=== PATIENT | male | born 1945 | race Caucasian/White ===

== ENCOUNTER 2018-05-26 08:54 | Day surgery (SDC) | payer MEDICARE, OTHER ==
[2018-05-25 09:42] VITALS: BMI 28.3
[~2018-05-26 08:54] MED LIST: LACTATED RINGERS 1,000 ML IV SCH
[2018-05-26 10:19] VITALS: TEMP 97.4
[2018-05-26] MEDS ORDERED: LIDOCAINE 1% 20 ML VIAL (10MG/ML) FOR IV START INTRADERMA ONE (10:19)
[2018-05-26 10:22] LABS: Glucose,Whole Blood 104 mg/dL (75-99)
[2018-05-26] MEDS ORDERED: PROPOFOL 10 MG/ML 20 ML VIAL IV ONE (10:25)
[2018-05-26] MEDS ORDERED: LIDOCAINE 1% INJ 10MG/ML (20 ML MDV) ONE (10:25)
--- NOTE | 2018-05-26 10:37 | P.PCN ---
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 He is scheduled for a follow-up upper endoscopy today. He complains of occasional dysphagia and occasional heartburn.. PROCEDURE PERFORMED: Esophagogastroduodenoscopy. PREOPERATIVE DIAGNOSIS: Follow-up esophageal adenocarcinoma diagnosed in April 2015 status post esophagectomy. IV sedation per anesthesia. PROCEDURE: After informed consent was obtained, the patient was brought into the endoscopy unit. IV sedation was administered by Anesthesia under continuous monitoring. Initially the Olympus GIF-140 video endoscope was inserted into the mouth. Esophagus intubated without any difficulty. The esophagogastric anastomosis was located at 25 cm from the incisors. It appeared patent. The scope was gradually advanced into the stomach and duodenum and carefully examined. The bulb and the second part of the duodenum appeared normal. The scope at this time was withdrawn to the stomach, adequately insufflated with air , and upon careful examination, mucosa of the antrum, body, appeared normal. was small amount of retained food in the stomach. The scope was then withdrawn into the esophagus. The GE anastomosiss located at 25 cm from the incisors. it appeared patent with no evidence of esophagitis. The esophagus appeared normal. There were no erosions or ulcerations seen and the patient tolerated the procedure well. IMPRESSION: 1. Normal esophagogastric anastomosis at 25 cm from the incisors with no evidence of recurrence of malignancy 2. Small amount of retained food in the stomach suggestive of gastroparesis. RECOMMENDATIONS: The findings of this examination were discussed with the patient as well as his family. He was advised to continue with Prilosec and small frequent meals. He can have a repeat upper endoscopy in 1 year.
[2018-05-26 10:58] VITALS: BP 126/74; PULSE 58; RESP 18
== END 2018-05-26 11:25 | disposition home or self-care (01) ==
LOC: ORWHC2ENDO 08:54
PROVIDERS: ATTEND Internal Medicine Gastroenterology
DX: K21.9 Gastro-esophageal reflux disease without esophagitis (principal); Z85.01 Personal history of malignant neoplasm of esophagus; Z98.0 Intestinal bypass and anastomosis status; Z90.49 Acquired absence of other specified parts of digestive tract; I10 Essential (primary) hypertension; E78.5 Hyperlipidemia, unspecified; J44.9 Chronic obstructive pulmonary disease, unspecified; H91.90 Unspecified hearing loss, unspecified ear; Z79.899 Other long term (current) drug therapy; Z91.040 Latex allergy status
CPT/HCPCS: 43235; J2001; J2704

== ENCOUNTER 2018-09-15 07:18 | Day surgery (SDC) | payer MEDICARE, OTHER ==
[2018-09-14 08:31] VITALS: BMI 30.2
[2018-09-15 07:55] VITALS: RESP 16; TEMP 97
[2018-09-15 08:01] LABS: Glucose,Whole Blood 96 mg/dL (75-99)
[2018-09-15] MEDS ORDERED: PROPOFOL 10 MG/ML 20 ML VIAL IV ONE (08:03)
--- NOTE | 2018-09-15 08:35 | P.PCN ---
Date of Procedure: 09/15/18 Procedure(s) Performed: BRIEF HISTORY: Patient is a 73-year-old pleasant white male scheduled for an elective colonoscopy as a part of variation of prior history of colon polyps. Last colonoscopy was 5 years ago. PROCEDURE PERFORMED: Colonoscopy. PREOPERATIVE DIAGNOSIS: History of colon polyps. IV sedation per Anesthesia. PROCEDURE: After informed consent was obtained, the patient, was brought into the endoscopy unit. IV sedation was administered by Anesthesia under continuous monitoring. Digital rectal examination was normal. Initially the Olympus CF- 160 flexible video colonoscope was then inserted in the rectum, gradually advanced into the cecum without any difficulty. Careful examination was performed as the scope was gradually being withdrawn. Ileocecal valve and the appendiceal orifice were visualized and appeared normal. Prep was fair. Mucosa of the cecum, ascending colon, transverse colon, descending colon, sigmoid colon , and rectum appeared normal. Scattered sigmoid diverticula cyst seen. Retroflexion was performed in the rectum and grade 2 internal were seen. The patient tolerated the procedure well. IMPRESSION: Normal-appearing colon from rectum to cecum with no evidence of colorectal neoplasia. Scattered sigmoid diverticulosis Grade 2 internal hemorrhoids RECOMMENDATIONS: Findings of this examination were discussed with the patient as well as his family. He was advised to have a repeat surveillance colonoscopy in 5 years from now because of the prior history of colon polyps..
[2018-09-15 09:08] VITALS: BP 134/76; PULSE 60
== END 2018-09-15 09:32 | disposition home or self-care (01) ==
LOC: ORWHC2ENDO 07:18
PROVIDERS: ATTEND Internal Medicine Gastroenterology
DX: Z86.010 Personal history of colon polyps (principal); K57.30 Diverticulosis of large intestine without perforation or abscess without bleeding; K64.1 Second degree hemorrhoids; Z91.040 Latex allergy status; I10 Essential (primary) hypertension; E11.9 Type 2 diabetes mellitus without complications; Z91.030 Bee allergy status; Z79.84 Long term (current) use of oral hypoglycemic drugs; Z79.899 Other long term (current) drug therapy
CPT/HCPCS: 45378; J2704

== ENCOUNTER 2019-08-17 18:20 | Observation (INO) | payer MEDICARE, OTHER ==
[2019-08-17 20:35] LABS: Glucose,Whole Blood 101 mg/dL (75-99)
[2019-08-17] MEDS ORDERED: NALOXONE 0.4 MG/ML 1 ML VIAL IV PRN (21:44)
[2019-08-17] MEDS ORDERED: ALPRAZolam 0.25 MG TAB PO PRN (21:47)
[2019-08-17] MEDS ORDERED: ACETAMINOPHEN TAB 500 MG TAB PO PRN (21:47)
[2019-08-17] MEDS ORDERED: NON FORMULARY DRUG (Omeprazole [Omeprazole] 20 MG) PO SCH (22:00)
[2019-08-17] MEDS: SODIUM CHLORIDE 0.9% 1,000 ML IV SCH (22:35)
[2019-08-17 22:37] LABS: Appearance,Urine Clear (Clear); Bilirubin,Urine Negative (Negative); Blood,Urine Negative (Negative); Color,Urine Yellow; Glucose,Urine (UA) Negative (Negative); Ketones,Urine Negative (Negative); Leukocyte Esterase,Urine Negative (Negative); Nitrite,Urine Negative (Negative); Protein,Urine Negative (Negative); Specific Gravity,Urine 1.019 (1.001-1.035); Urobilinogen,Urine <2.0 mg/dL (<2.0)
[2019-08-17 22:59] LABS: Basophils # (A) 0.1 k/uL (0-0.2); Basophils % (A) 1 %; Eosinophils # (A) 0.1 k/uL (0-0.7); Eosinophils % (A) 2 %; HCT 40.9 % (39.0-53.0); HGB 13.7 gm/dL (13.0-17.5); Lymphocytes # (A) 1.1 k/uL (1.0-4.8); Lymphocytes % (A) 15 %; MCH 32.5 pg (25.0-35.0); MCHC 33.4 g/dL (31.0-37.0); MCV 97.3 fL (80.0-100.0); Monocytes # (A) 0.6 k/uL (0-1.0); Monocytes % (A) 8 %; Neutrophils # (A) 5.4 k/uL (1.3-7.7); Neutrophils % (A) 74 %; Platelet Count 175 k/uL (150-450); RBC 4.21 m/uL (4.30-5.90); RDW 13.1 % (11.5-15.5); WBC 7.3 k/uL (3.8-10.6)
[2019-08-17 23:09] LABS: Albumin 3.6 g/dL (3.5-5.0); Magnesium 1.9 mg/dL (1.6-2.3); Phosphorus 2.8 mg/dL (2.5-4.5); Potassium 3.7 mmol/L (3.5-5.1); Total Bilirubin 0.6 mg/dL (0.2-1.3); Total Protein 6.4 g/dL (6.3-8.2)
[2019-08-18 05:36] LABS: Basophils % (A) 0 %; Eosinophils # (A) 0.2 k/uL (0-0.7); Eosinophils % (A) 3 %; HCT 37.4 % (39.0-53.0); HGB 12.6 gm/dL (13.0-17.5); Lymphocytes # (A) 0.7 k/uL (1.0-4.8); Lymphocytes % (A) 12 %; MCH 32.8 pg (25.0-35.0); MCHC 33.8 g/dL (31.0-37.0); Mean Platelet Volume 7.1; Monocytes # (A) 0.4 k/uL (0-1.0); Monocytes % (A) 8 %; Neutrophils % (A) 75 %; Platelet Count 140 k/uL (150-450); RBC 3.86 m/uL (4.30-5.90); WBC 5.3 k/uL (3.8-10.6)
[2019-08-18 05:48] LABS: Calcium 8.7 mg/dL (8.4-10.2); Potassium 3.4 mmol/L (3.5-5.1)
[2019-08-18 07:16] LABS: Glucose,Whole Blood 115 mg/dL (75-99)
--- NOTE | 2019-08-18 08:36 | HP ---
HISTORY AND PHYSICAL CHIEF COMPLAINT: Dizziness and presyncope. HISTORY OF PRESENT ILLNESS: This is a 74-year-old gentleman with a past history of COPD, diabetes, GERD, hearing defect, hypertension, hyperlipidemia, being followed by Dr. Blackwood in the outpatient setting. Also seeing Dr. Burnette. Today the patient was playing bingo. Patient reported that patient is not able to see. Patient has recently changed the prescription of the glasses according to the family, but subsequently patient woke with patient stood up was unsteady and family helped him, but he became cold, clammy and slightly unresponsive and the patient subsequently was taken to [facility] and [facility] physician discussed the case at length with me over the phone and the patient was transferred to [facility] for direct admission at this time. The patient also has some slight dizziness. The initial workup was negative except the EKG showed some sinus bradycardia. The blood sugar is also found to be low in [facility] around 60 and there is no history of fever, chills, or rigors. No history of any headache. No history of seizures at this time. PAST MEDICAL: COPD, diabetes mellitus, GERD, hearing defect, hypertension, hyperlipidemia. HOME MEDICATIONS: 1. Requip 5 mg p.o. q.h.s. 2. Norvasc 10 mg q.a.m. 3. Actos 50 mg q.a.m. 4. Omeprazole 20 mg supper. 5. Cozaar 50 mg q.a.m. 6. Hydrochlorothiazide 25 mg q.a.m. 7. Iron 320 mg p.o. b.i.d. 8. Vitamin D3 four hundred units p.o. with supper. 9. Lipitor 20 mg with supper. ALLERGIES: BEE VENOM and LATEX. FAMILY HISTORY: History of cancer. SOCIAL HISTORY: No history of smoking, no history of alcohol. REVIEW OF SYSTEMS: ENT: Diminished vision. Diminished hearing. CARDIOVASCULAR SYSTEM: As mentioned earlier. GI: No nausea. : No dysuria. NERVOUS SYSTEM: As mentioned earlier. ALLERGY/IMMUNOLOGY: No asthma or hayfever. MUSCULOSKELETAL: As mentioned earlier. HEMATOLOGY/ONCOLOGY: No history of anemia. ENDOCRINE: Diabetes. CONSTITUTIONAL: As mentioned earlier. DERMATOLOGY: Negative. RHEUMATOLOGY: Negative. PSYCHIATRY: As mentioned earlier. PHYSICAL EXAMINATION: Patient is alert and oriented x3. Pulse is 80, blood pressure 128/90, respiration 20, temperature is normal. HEENT: Conjunctivae normal, oral mucosa moist. NECK: No jugular venous distention. No lymph node enlargement. CARDIOVASCULAR SYSTEM: S1, S2. RESPIRATION: Breath sounds diminished at the bases, no rhonchi, no crackles. ABDOMEN: Soft, nontender. No mass palpable. LEGS: No edema, no swelling. NERVOUS SYSTEM: Higher functions as mentioned earlier. Moves all 4 limbs. Otherwise, no focal motor or sensory deficit. Minimal weakness noted. LYMPHATICS: No lymph nodes palpable in the neck, axillae or groin. SKIN: No ulcers, rash or bleeding. JOINTS: No active deformity, arthropathy. LABS: Glucose 101. Other labs are noted. ASSESSMENT: 1. Presyncope and dizziness for evaluation, rule out cardiac arrhythmia. 2. Possible acute transient ischemic attack, rule out acute stroke. 3. Hypoglycemia. 4. Bradycardia. 5. Chronic obstructive pulmonary disease. 6. Diabetes mellitus type 2. 7. Gastroesophageal reflux disease. 8. Hearing defect and deafness. 9. Hyperlipidemia. 10.Hypertension. 11.History of prostate cancer surgery. 12.History of throat cancer surgery. 13.History of degenerative joint disease. 14.History of cataracts. 15.FULL CODE: RECOMMENDATION: In this 74-year-old gentleman who presented with multiple complex medical issues, will monitor the patient closely. Continue with the current management and recommend resume the home medications. I would recommend Cardiology and Neurology consultation. Full neurovascular workup including 2D echo and carotid Doppler, continue telemetry. Otherwise, I would also recommend Accu-Cheks a.c. and at bedtime and pursue the scale also. Overall prognosis guarded because of multiple complex medical issues, as detailed above. Will continue to monitor. Repeat labs are noted for the morning and discussed at length with the patient and the patient's family at bedside and a copy of this will be forwarded to Dr. Blackwood who is the primary physician. MMODL / IJN: [id number] /
[2019-08-18] MEDS: INSULIN ASPART (NovoLOG) 100 UNIT/ML VIAL SQ SCH ×4 (08:45→21:47)
[2019-08-18] MEDS: HYDROCHLOROTHIAZIDE 25 MG TAB PO SCH (08:53)
[2019-08-18] MEDS: FERROUS SULFATE 325 MG TAB PO SCH ×2 (08:53→21:47)
[2019-08-18] MEDS: PANTOPRAZOLE 40 MG TABLET PO SCH (08:53)
[2019-08-18] MEDS: HEPARIN SODIUM,PORCINE 5,000 UNIT/ML 1 ML VIAL SQ SCH ×2 (08:53→21:47)
[2019-08-18] MEDS: LOSARTAN 50 MG TAB PO SCH (08:53)
[2019-08-18] MEDS: PIOGLITAZONE 15 MG TAB PO SCH (08:54)
[2019-08-18] MEDS ORDERED: amLODIPine 10 MG TAB PO SCH (09:00)
--- NOTE | 2019-08-18 09:02 | P.CRDCN ---
History of Present Illness History of present illness: HISTORY OF PRESENTING ILLNESS This is a pleasant 74-year-old male past medical history significant for aortic stenosis, hypertension, dyslipidemia, COPD, history of esophageal cancer s/p esophagectomy with gastric pull through 2014 and diabetes mellitus. He follows in the office with Dr. Burnette. We have been asked to see in consultation for near syncope. He is seen and examined laying flat resting comfortably in bed. He states yesterday while playing bingo with his family he started noticing his vision becoming blurred. He told his he was going to go sit on the couch and relax. Upon standing he started feeling dizzy and light headed like he was going to pass out. His family assisted him to the couch. Once he sat down he started feeling quite diaphoretic and short of breath. This lasted about 15-20 minutes. EMS arrived and gave some D50 for a sugar of 60. He denies chest pain, palpitations, nausea or vomiting associated with his episode. He has been up and ambulating to the bathroom without difficulty. No further dizziness or shortness of breath. He initially presented to [place] for evaluation and was transferred here for cardiac and neurologic evaluation. DIAGNOSTICS EKG reveals sinus mechanism with ST changes laterally, compared to EKG from the office. No significant changes. Chest xray obtained at [facility] revealed large hiatal hernia, clear lungs. Laboratory reviewed, WBC 5.3, hemoglobin 12.6, platelets 140, sodium 139, potassium 3.4, creatinine 1.21, cardiac enzymes negative 3, magnesium 1.9, BNP 70, LDL 44. Current cardiac medications include atorvastatin 20 mg daily, hydrochlorothiazide 25 mg daily, losartan 50 mg daily and amlodipine 10 mg daily. REVIEW OF SYSTEMS At the time of my exam: CONSTITUTIONAL: Denies fever or chills. CARDIOVASCULAR: Denies chest pain, shortness of breath, orthopnea, PND or palpitations. RESPIRATORY: Denies cough. GASTROINTESTINAL: Denies abdominal pain, diarrhea, constipation, nausea or vomiting. MUSCULOSKELETAL: Denies myalgias. NEUROLOGIC: Denies numbness, tingling or weakness. ENDOCRINE: Denies fatigue, weight change, polydipsia or polyurina. GENITOURINARY: Denies burning, hematuria or urgency with micturation. HEMATOLOGIC: Denies history of anemia or bleeding. PHYSICAL EXAMINATION Blood pressure 122/75 heart rate 58 afebrile and maintaining oxygen saturation on room air. CONSTITUTIONAL: No apparent distress. HEENT: Head is normocephalic. Pupils are equal, round. Sclerae anicteric. Mucous membranes of the mouth are moist. No JVD. No carotid bruit. CHEST EXAMINATION: Lungs are clear to auscultation. No chest wall tenderness is noted on palpation or with deep breathing. Diminished bilaterally. HEART EXAMINATION: Regular rate and rhythm. S1, S2 heard. Soft systolic ejecti on murmur at the base, no gallops or rub. ABDOMEN: Soft, nontender. Positive bowel sounds. EXTREMITIES: 2+ peripheral pulses, no lower extremity edema and no calf tenderness. NEUROLOGIC EXAMINATION: Patient is awake, alert and oriented x3. ASSESSMENT Near-syncope, likely vasovagal. An acute coronary event has been ruled out. Aortic stenosis, nonrheumatic Hypertension Dyslipidemia Diabetes mellitus History of esophageal cancer status post esophagectomy with gastric pull through COPD PLAN An acute coronary event has been ruled out. Obtain 2-D echocardiogram and Doppler study to assess cardiac structure and function. Increase activity and ambulation. No further cardiac work-up at this time. If echo is stable he may be discharged from a cardiac perspective and follow up with Dr. Burnette. Thank you kindly for this consultation. Nurse Practitioner note has been reviewed, I agree with a documented findings and plan of care. Patient was seen and examined. Past Medical History Past Medical History: Cancer, COPD, Diabetes Mellitus, GERD/Reflux, Hearing Disorder / Deafness, Hyperlipidemia, Hypertension Additional Past Medical History / Comment(s): COPD WITH SOB (NO RX)-( [employer] FOR 45 YEARS), HX OF PROSTATE CANCER WITH SURGERY, HX OF THROAT CANCER WITH SURGERY (2016), LOW IRON. BILATERAL HEARING AIDS. History of Any Multi-Drug Resistant Organisms: None Reported Past Surgical History: Orthopedic Surgery, Prostate Surgery Additional Past Surgical History / Comment(s): RIGHT SHOULDER X2, EGD'S, COLONOSCOPIES, MICAH CATARACTS, PATIENT STATES ESOPHAGUS REMOVED AND STOMACH USED. Past Anesthesia/Blood Transfusion Reactions: No Reported Reaction Past Psychological History: No Psychological Hx Reported Smoking Status: Never smoker Past Alcohol Use History: None Reported Past Drug Use History: None Reported - Past Family History Sister(s) Family Medical History: Cancer Additional Family Medical History / Comment(s): AT 13 YRS OF AGE. Medications and Allergies Home Medications Medication Instructions Recorded Confirmed Type Atorvastatin [Lipitor] 20 mg PO W/SUPPER 05/25/18 08/17/19 History Cholecalciferol [Vitamin D3] 400 unit PO W/SUPPER 05/25/18 08/17/19 History Ferrous Sulfate [Iron] 325 mg PO BID 05/25/18 08/17/19 History Hydrochlorothiazide 25 mg PO QAM 05/25/18 08/17/19 History Losartan [Cozaar] 50 mg PO QAM 05/25/18 08/17/19 History Omeprazole 20 mg PO W/SUPPER 05/25/18 08/17/19 History Pioglitazone [Actos] 15 mg PO QAM 05/25/18 08/17/19 History amLODIPine [Norvasc] 10 mg PO QAM 05/25/18 08/17/19 History rOPINIRole HCL 5 mg PO HS 09/14/18 08/17/19 History Allergies Allergy/AdvReac Type Severity Reaction Status Date / Time bee venom protein (honey bee) Allergy Severe Anaphylaxis Verified 09/14/18 08:22 latex Allergy Unknown Rash/Hives Verified 09/14/18 08:22 Physical Exam Vitals: Vital Signs Temp Pulse Pulse Pulse Pulse Resp BP 08/18/19 07:49 08/18/19 07:28 98.2 F 58 L 18 122/75 08/18/19 04:00 98.3 F 59 L 18 08/18/19 03:53 82 80 75 18 08/17/19 23:21 82 80 75 18 08/17/19 22:20 82 80 75 18 08/17/19 20:40 97.9 F 67 18 08/17/19 20:23 17 BP BP BP BP Pulse Ox 08/18/19 07:49 145/84 106/73 116/71 08/18/19 07:28 96 08/18/19 04:00 106/67 96 08/18/19 03:53 08/17/19 23:21 08/17/19 22:20 122/77 120/76 117/68 96 08/17/19 20:40 142/77 98 08/17/19 20:23 Intake and Output 08/17/19 08/18/19 08/18/19 22:59 06:59 14:59 Output Total 400 Balance -400 Output: Urine 400 Other: Weight 87.657 kg Results 08/18/19 05:24 08/18/19 05:24 Cardiac Enzymes 08/17/19 08/17/19 08/18/19 Range/Units 22:19 22:19 05:24 AST 23 (17-59) U/L Troponin I <0.012 <0.012 (0.000-0.034) ng/mL Lipids 08/18/19 Range/Units 05:24 Triglycerides 59 (<150) mg/dL Cholesterol 104 (<200) mg/dL HDL Cholesterol 48 (40-60) mg/dL CBC 08/17/19 08/18/19 Range/Units 22:19 05:24 WBC 7.3 5.3 (3.8-10.6) k/uL RBC 4.21 L 3.86 L (4.30-5.90) m/uL Hgb 13.7 12.6 L (13.0-17.5) gm/dL Hct 40.9 37.4 L (39.0-53.0) % Plt Count 175 140 L (150-450) k/uL Comprehensive Metabolic Panel 08/17/19 08/18/19 Range/Units 22:19 05:24 Sodium 138 139 (137-145) mmol/L Potassium 3.7 3.4 L (3.5-5.1) mmol/L Chloride 106 107 (98-107) mmol/L Carbon Dioxide 26 29 (22-30) mmol/L BUN 28 H 24 H (9-20) mg/dL Creatinine 1.23 1.21 (0.66-1.25) mg/dL Glucose 155 H 126 H (74-99) mg/dL Calcium 9.0 8.7 (8.4-10.2) mg/dL AST 23 (17-59) U/L ALT 15 (4-49) U/L Alkaline Phosphatase 65 (38-126) U/L Total Protein 6.4 (6.3-8.2) g/dL Albumin 3.6 (3.5-5.0) g/dL Current Medications Generic Name Dose Route Start Last Admin Trade Name Freq PRN Reason Stop Dose Admin Acetaminophen 500 mg 08/17/19 21:47 Tylenol Tab PO Q6HR PRN Fever and/ or Pain Alprazolam 0.25 mg 01/01/20 21:47 Xanax PO TID PRN Anxiety Amlodipine Besylate 10 mg 08/18/19 09:00 Norvasc PO QAM [facility] Atorvastatin Calcium 20 mg 08/18/19 17:30 Lipitor PO W/SUPPER [facility] Cholecalciferol 400 unit 08/18/19 17:30 Vitamin D3 PO W/SUPPER [facility] Ferrous Sulfate 325 mg 08/18/19 09:00 Feosol PO BID [facility] Heparin Sodium (Porcine) 5,000 unit 08/18/19 09:00 Heparin SQ Q12HR [facility] Hydrochlorothiazide 25 mg 08/18/19 09:00 Hydrodiuril PO QAM [facility] Sodium Chloride 1,000 mls @ 20 mls/hr 08/17/19 21:45 08/17/19 22:35 Saline 0.9% IV 20 mls/hr .Q24H [facility] Administration Insulin Aspart 0 unit 08/18/19 07:30 Novolog SQ ACHS [facility] Protocol Losartan Potassium 50 mg 08/18/19 09:00 Cozaar PO QAM [facility] Multivitamins 1 each 08/18/19 12:00 Theragran PO DAILY@1200 [facility] Naloxone HCl 0.2 mg 08/17/19 21:44 Narcan IV Q2M PRN Opioid Reversal Pantoprazole Sodium 40 mg 08/18/19 07:30 Protonix PO AC-BRKFST [facility] Pioglitazone HCl 15 mg 08/18/19 09:00 Actos PO QAM [facility] Ropinirole HCl 5 mg 08/17/19 22:00 08/17/19 22:36 Requip PO 5 mg HS [facility] Administration Intake and Output 08/17/19 08/18/19 08/18/19 22:59 06:59 14:59 Output Total 400 Balance -400 Output: Urine 400 Other: Weight 87.657 kg 08/18/19 05:24 08/18/19 05:24
--- NOTE | 2019-08-18 09:05 | US ---
EXAMINATION TYPE: US carotid duplex BILAT DATE OF EXAM: 08/18/2019 COMPARISON: NONE CLINICAL HISTORY: stroke. Dizziness with near syncopal episode; cardiac murmur EXAM MEASUREMENTS: RIGHT: Peak Systolic Velocity (PSV) cm/sec ----- Right CCA: 85.2 ----- Right ICA: 72.1 ----- Right ECA: 99.1 ICA/CCA ratio: 0.8 RIGHT: End Diastole cm/sec ----- Right CCA: 18.3 ----- Right ICA: 25.9 ----- Right ECA: 12.4 LEFT: Peak Systolic Velocity (PSV) cm/sec ----- Left CCA: 80.1 ----- Left ICA: 84.1 ----- Left ECA: 139.9 ICA/CCA ratio: 1.0 LEFT: End Diastole cm/sec ----- Left CCA: 15.3 ----- Left ICA: 16.7 ----- Left ECA: 12.3 VERTEBRALS (direction of flow): Right Vertebral: Antegrade Left Vertebral: Antegrade Rhythm: Normal Intimal wall changes are noted at bilateral carotid bifurcation with elevated PSV Left ECA. Incidental finding of thyroid nodules noted bilaterally, especially multiple noted in Right Thyroid. IMPRESSION: 1. Intimal thickening and atherosclerotic changes with no significant hemodynamic stenosis. 2. Bilateral thyroid nodules. Criteria for Assigning % of Stenosis / Diameter reduction (Estimation based on the indirect measurements of the internal carotid artery velocities (ICA PSV). 1. Normal (no stenosis)=ICA PSV < 125 cm/s: ratio < 2.0: ICA EDV<40 cm/s. 2. Less than 50% stenosis=ICA PSV < 125 cm/s: ratio < 2.0: ICA EDV<40 cm/s. 3. 50 to 69% stenosis=ICA PSV of 125 to 230 cm/s: ration 2.0 ? 4.0: ICA EDV 40-100 cm/s. 4. Greater than 70% stenosis to near occlusion= ICA PSV > 230 cm/s: ratio > 4.0: ICA EDV > 100 cm/s. 5. Near occlusion= ICA PSV velocities may be low or undetectable: variable ratio and ICA EDV. 6. Total occlusion=unable to detect flow.
--- NOTE | 2019-08-18 11:38 | ECHOF ---
Referral Reason:Stroke MEASUREMENTS -------- HEIGHT: 170.2 cm WEIGHT: 87.5 kg BP: 106/67 RVIDd: 3.3 cm (< 3.3) IVSd: 1.3 cm (0.6 - 1.1) LVIDd: 4.0 cm (3.9 - 5.3) LVPWd: 1.3 cm (0.6 - 1.1) IVSs: 1.8 cm LVIDs: 2.3 cm LVPWs: 1.8 cm LA Diam: 3.2 cm (2.7 - 3.8) LAESV Index (A-L): 40.22 ml/m Ao Diam: 3.5 cm (2.0 - 3.7) AV Cusp: 1.7 cm (1.5 - 2.6) MV EXCURSION: 17.310 mm (> 18.000) MV EF SLOPE: 78 mm/s (70 - 150) EPSS: 0.7 cm MV E Ziyad: 0.86 m/s MV DecT: 245 ms MV A Ziyad: 0.98 m/s MV E/A Ratio: 0.88 AV maxP.15 mmHg AV meanP.31 mmHg RAP: 5.00 mmHg RVSP: 33.43 mmHg FINDINGS -------- Sinus rhythm. This was a technically adequate study. The left ventricular size is normal. There is mild concentric left ventricular hypertrophy. Overa ll left ventricular systolic function is normal with, an EF between 55 - 60 %. Pseudonormal LV fill ing pattern, consistent with elevated LA pressure. [place] SORAYA The right ventricle is mildly enlarged. LA is severely dilated >40 ml/m2 The right atrial size is normal. Interatrial and interventricular septum intact. There is moderate aortic valve sclerosis. There is mild aortic regurgitation. LVOT obstruction wi th 78 mm/Hg of max pressure gradient , and 40 mmHg of mean pressure gradient. The mitral valve is normal. Mild mitral regurgitation is present. Mild tricuspid regurgitation present. There is no evidence of pulmonary hypertension. The right v entricular systolic pressure, as measured by Doppler, is 33.43mmHg. Trace/mild (physiologic) pulmonic regurgitation. The aortic root size is normal. Normal inferior vena cava with normal inspiratory collapse consistent with estimated right atrial pre ssure of 5 mmHg. There is no pericardial effusion. CONCLUSIONS -------- 1. Sinus rhythm. 2. This was a technically adequate study. 3. The left ventricular size is normal. 4. There is mild concentric left ventricular hypertrophy. 5. Overall left ventricular systolic function is normal with, an EF between 55 - 60 %. 6. Pseudonormal LV filling pattern, consistent with elevate LA pressure. 7. [place] SORAYA 8. The right ventricle is mildly enlarged. 9. LA is severely dilated >40 ml/m2 10. There is moderate aortic valve sclerosis. 11. There is mild aortic regurgitation. 12. LVOT obstruction with 78 mm/Hg of max pressure gradient , and 40 mmHg of mean pressure gradient. 13. Mild mitral regurgitation is present. 14. Mild tricuspid regurgitation present. 15. There is no evidence of pulmonary hypertension. 16. Trace/mild (physiologic) pulmonic regurgitation. 17. There is no pericardial effusion. DEPUTY CHIEF MAGISTRATE: Nika Matute RDCS
[2019-08-18 11:43] LABS: Glucose,Whole Blood 118 mg/dL (75-99)
[2019-08-18] MEDS: MULTIVITAMINS, THERA 1 EACH TAB PO SCH (11:49)
[2019-08-18 16:52] LABS: Glucose,Whole Blood 95 mg/dL (75-99)
[2019-08-18] MEDS ORDERED: CHOLECALCIFEROL 400 UNIT TAB PO SCH (17:30)
[2019-08-18] MEDS ORDERED: ATORVASTATIN 40 MG TAB PO SCH (17:30)
--- NOTE | 2019-08-18 19:51 | PN ---
PROGRESS NOTE DATE OF SERVICE: 08/18/2019 This 74-year-old gentleman who was admitted with presyncope, syncope, being closely monitored at this time. Cardiovascular Surgery has seen the patient. Telemetry is negative. A 2D echo with Doppler was done which showed ejection fraction 50-60% and LVOT obstruction with 78 mm of maximum pressure gradient, 40 mL of mean pressure gradient also noted. Moderate aortic atherosclerosis was also noted. LA was severely dilated. The carotid ultrasound showed no significant stenosis. No chest pain. No palpitations. No fever. EXAM: Alert and oriented x3. Pulse 51, blood pressure 108/67, respiration 18, temperature 98.6, pulse ox 98% on room air. HEENT: Conjunctivae normal. Oral mucosa moist. NECK: No jugular venous distention. No lymph node enlargement. CARDIOVASCULAR: S1, S2. RESPIRATORY: Diminished breath sounds at the bases. No rhonchi, no crackles. ABDOMEN: Soft, nontender. LEGS: No edema, no swelling. NERVOUS SYSTEM: No focal deficits. LABS: WBC ( ), hemoglobin 12.6, sodium 130, potassium 3.4. ASSESSMENT: 1. Presyncope, dizziness for evaluation, rule out cardiac arrhythmia. 2. Possible LVOT obstruction with 78/40 mm pressure gradient. 3. Possible acute transient ischemic attack. No evidence of stroke. 4. Hypoglycemia, improved. 5. Bradycardia, improved. 6. Chronic obstructive pulmonary disease. 7. Diabetes mellitus type 2. 8. Gastroesophageal reflux disease. 9. History of hearing defect and deafness. 10.History of hyperlipidemia. 11.History of hypertension. 12.History of prostate cancer surgery. 13.History of throat cancer. 14.History of degenerative joint disease. 15.History of cataracts. 16.FULL CODE. RECOMMENDATIONS AND DISCUSSION: In this 74-year-old gentleman who presented with multiple medical problems, we will monitor the patient closely, continue the current medication and symptomatic treatment. Otherwise, at this time closely follow with Cardiology. Continue telemetry. Increase ambulation. Guarded prognosis. Further recommendations to follow. MMODL / IJN: [id number] /
[2019-08-18 20:13] LABS: Glucose,Whole Blood 116 mg/dL (75-99)
[2019-08-18] MEDS: SODIUM CHLORIDE 0.9% 1,000 ML IV SCH (22:53)
[2019-08-19 03:37] VITALS: RESP 18
[2019-08-19 06:32] LABS: Basophils % (A) 1 %; Eosinophils # (A) 0.2 k/uL (0-0.7); Eosinophils % (A) 4 %; HCT 36.2 % (39.0-53.0); HGB 12.3 gm/dL (13.0-17.5); Lymphocytes # (A) 0.8 k/uL (1.0-4.8); Lymphocytes % (A) 17 %; MCH 33.2 pg (25.0-35.0); MCHC 33.9 g/dL (31.0-37.0); Mean Platelet Volume 7.8; Monocytes # (A) 0.4 k/uL (0-1.0); Monocytes % (A) 8 %; Neutrophils # (A) 3.5 k/uL (1.3-7.7); Neutrophils % (A) 70 %; Platelet Count 160 k/uL (150-450); RBC 3.69 m/uL (4.30-5.90)
[2019-08-19 06:42] LABS: Calcium 8.6 mg/dL (8.4-10.2); Potassium 3.9 mmol/L (3.5-5.1)
[2019-08-19 06:45] LABS: Glucose,Whole Blood 106 mg/dL (75-99)
--- NOTE | 2019-08-19 08:16 | P.PN ---
Subjective HISTORY OF PRESENTING ILLNESS This is a pleasant 74-year-old male past medical history significant for aortic stenosis, hypertension, dyslipidemia, COPD, history of esophageal cancer s/p esophagectomy with gastric pull through 2014 and diabetes mellitus. He follows in the office with Dr. Burnette. He is seen and examined sitting up in bed in no acute distress. He has been up and ambulating to the bathroom with assistance. He denies any further symptoms of dizziness or near syncope. He also denies chest pain, palpitations, shortness of breath or diaphoresis. Blood pressure 111/69 heart rate 63 afebrile and maintaining oxygen saturation on room air. Blood pressure have been running quite low on current regimen at times. Laboratory data reviewed, WBC 5, hgb 12.3, plt 160, sodium 137, potassium 3.9, creatinine 1.07. Currently maintained on amlodipine 5 mg daily, hydrochlorothiazide 25 mg daily and losartan 50 mg daily. Echocardiogram obtained reveals preserved LV systolic function with EF 55-60%, mild LVH, severely dilated LA, LVOT obstruction with mean gradient of 40 mmHg, mild MR and mild TR. PHYSICAL EXAMINATION CONSTITUTIONAL: No apparent distress. HEENT: Head is normocephalic. Pupils are equal, round. Sclerae anicteric. Mucous membranes of the mouth are moist. No JVD. No carotid bruit. CHEST EXAMINATION: Lungs are clear to auscultation. No chest wall tenderness is noted on palpation or with deep breathing. Diminished bilaterally. HEART EXAMINATION: Regular rate and rhythm. S1, S2 heard. Soft systolic ejectio n murmur at the base precipitated by vasalva maneuver, no gallops or rub. EXTREMITIES: 2+ peripheral pulses, no lower extremity edema and no calf tenderness. ASSESSMENT Near-syncope, likely vasovagal. An acute coronary event has been ruled out. Aortic stenosis, nonrheumatic Hypertension Dyslipidemia Diabetes mellitus History of esophageal cancer status post esophagectomy with gastric pull through COPD PLAN Decrease amlodipine to 5 mg daily. Continue to increase activity and ambulation. Stable for discharge from a cardiac perspective, follow up with Dr. Burnette in 1- 2 weeks. Nurse Practitioner note has been reviewed, I agree with a documented findings and plan of care. Patient was seen and examined. Objective - Vital Signs Vital signs: Vital Signs Temp 98.0 F 08/19/19 07:00 Pulse 63 08/19/19 07:00 Resp 18 08/19/19 07:00 BP 111/69 08/19/19 07:00 Pulse Ox 95 08/19/19 07:00 Intake & Output 08/18/19 08/19/19 08/19/19 18:59 06:59 18:59 Intake Total 320 Balance 320 Intake: Oral 120 Other 200 Other: Voiding Method Toilet Toilet # Voids 1 1 # Bowel Movements 1 - Labs CBC & Chem 7: 08/19/19 05:58 08/19/19 05:58 Labs: Abnormal Lab Results - Last 24 Hours (Table) 08/18/19 08/18/19 08/19/19 Range/Units 11:42 20:12 05:58 RBC 3.69 L (4.30-5.90) m/uL Hgb 12.3 L (13.0-17.5) gm/dL Hct 36.2 L (39.0-53.0) % Lymphocytes # 0.8 L (1.0-4.8) k/uL BUN (9-20) mg/dL Glucose (74-99) mg/dL POC Glucose (mg/dL) 118 H 116 H (75-99) mg/dL 08/19/19 08/19/19 Range/Units 05:58 06:43 RBC (4.30-5.90) m/uL Hgb (13.0-17.5) gm/dL Hct (39.0-53.0) % Lymphocytes # (1.0-4.8) k/uL BUN 21 H (9-20) mg/dL Glucose 110 H (74-99) mg/dL POC Glucose (mg/dL) 106 H (75-99) mg/dL
[2019-08-19] MEDS: INSULIN ASPART (NovoLOG) 100 UNIT/ML VIAL SQ SCH (08:37)
[2019-08-19] MEDS ORDERED: amLODIPine 5 MG TAB PO SCH (09:00)
[2019-08-19] MEDS: HEPARIN SODIUM,PORCINE 5,000 UNIT/ML 1 ML VIAL SQ SCH (09:22)
[2019-08-19] MEDS: MULTIVITAMINS, THERA 1 EACH TAB PO SCH (09:22)
[2019-08-19] MEDS: FERROUS SULFATE 325 MG TAB PO SCH (09:22)
[2019-08-19] MEDS: HYDROCHLOROTHIAZIDE 25 MG TAB PO SCH (09:22)
[2019-08-19] MEDS: LOSARTAN 50 MG TAB PO SCH (09:22)
[2019-08-19] MEDS: PIOGLITAZONE 15 MG TAB PO SCH (09:22)
[2019-08-19] MEDS: PANTOPRAZOLE 40 MG TABLET PO SCH (09:22)
[2019-08-19 11:27] VITALS: BP 133/79; PULSE 62; TEMP 97.7
[2019-08-19 11:39] LABS: Glucose,Whole Blood 90 mg/dL (75-99)
--- NOTE | 2019-08-19 14:39 | P.DS ---
Providers Date of admission: 08/17/19 20:18 Expected date of discharge: 08/19/19 Attending physician: Obed Ba Consults: 08/17/19 21:23 Consult Physician Stat Consulting Provider: Teodoro Burnette Consult Reason/Comments: sycope Do you want consulting provider notified?: Yes, Notify in am 08/17/19 21:27 Consult Physician Stat Consulting Provider: Geena Traylor Consult Reason/Comments: syncope Do you want consulting provider notified?: Yes Primary care physician: Lexi Blackwood Hospital Course: final diagnosis Presyncope, dizziness Possible LV OT obstruction with 78/40 mm pressure gradient Possible acute TIA with no evidence of stroke Hypoglycemia Bradycardia Chronic obstructive pulmonary disease diabetes mellitus type 2 GERD History of hearing deficit and deafness History of hypertension History of hyperlipidemia istory of prostate cancer surgery History of throat cancer History of degenerative joint disease History of cataracts Full code Discharge disposition Patient is being discharged in a stable condition with guarded prognosis to home and will follow-up with cardiology Dr. Burnette in the outpatient setting in 1-2 weeks. Patient will also follow-up with Dr. Blackwood in the outpatient setting upon discharge. Total time taken is 35 minutes. History of present illness This is a 74-year-old male who was recently admitted for presyncope, syncope and was being closely monitored. During hospitalization patient underwent an echo showing overall left ventricular systolic function is normal with an EF between 55 and 60% with some moderate aortic valve sclerosis along with mild aortic regurgitation as well as mild tricuspid regurgitation present. Cardiology evaluated the patient and patient will follow-up with Dr. Burnette in the outpatient setting in 1-2 weeks. Patient's Norvasc will continue at 5 mg daily. Discussed with the patient at length about keeping a diary or log of blood pressure readings to bring for primary care and cardiology follow-up visits. Also discussed with the patient at length about getting up slowly with position changes and sitting up for at least 1-2 minutes prior to getting up to minimize possible syncopal episodes. Patient and family member at the bedside verbalized understanding. Currently patient's condition is stable and would like to go home today. Currently patient denies any chest pain, shortness of breath, or palpitations. Patient has been afebrile. Patient denies any nausea or vomiting and is eating. On exam vital signs are stable. Temp is 97.7 F, pulse is 70, respirations are 18, blood pressure is 144/86, oxygen saturation is 95% on room air. Cardio S1, S2 are muffled. Respiratory system shows diminished breath sounds at the bases with no rhonchi or crackles noted. Abdomen is soft, thin, non-tender. Nervous system shows no focal deficits. Please refer to medication reconciliation sheet for a list of medications. Patient Condition at Discharge: Stable Plan - Discharge Summary Discharge Rx Participant: No New Discharge Prescriptions: New Multivitamins, Thera [Multivitamin (formulary)] 1 each PO DAILY@1200 30 Days #30 tab amLODIPine [Norvasc] 5 mg PO QAM 30 Days #30 tab Continue Hydrochlorothiazide 25 mg PO QAM Pioglitazone [Actos] 15 mg PO QAM Cholecalciferol [Vitamin D3] 400 unit PO W/SUPPER Atorvastatin [Lipitor] 20 mg PO W/SUPPER Omeprazole 20 mg PO W/SUPPER Losartan [Cozaar] 50 mg PO QAM Ferrous Sulfate [Iron] 325 mg PO BID rOPINIRole HCL 5 mg PO HS Discontinued amLODIPine [Norvasc] 10 mg PO QAM Discharge Medication List Atorvastatin [Lipitor] 20 mg PO W/SUPPER 05/25/18 [History] Cholecalciferol [Vitamin D3] 400 unit PO W/SUPPER 05/25/18 [History] Ferrous Sulfate [Iron] 325 mg PO BID 05/25/18 [History] Hydrochlorothiazide 25 mg PO QAM 05/25/18 [History] Losartan [Cozaar] 50 mg PO QAM 05/25/18 [History] Omeprazole 20 mg PO W/SUPPER 05/25/18 [History] Pioglitazone [Actos] 15 mg PO QAM 05/25/18 [History] rOPINIRole HCL 5 mg PO HS 09/14/18 [History] Multivitamins, Thera [Multivitamin (formulary)] 1 each PO DAILY@1200 30 Days #30 tab 08/19/19 [Rx] amLODIPine [Norvasc] 5 mg PO QAM 30 Days #30 tab 08/19/19 [Rx] Follow up Appointment(s)/Referral(s): Lexi Blackwood MD [Primary Care Provider] - 1-2 Days Teodoro Burnette MD [STAFF PHYSICIAN] - 09/01/19 10:15 am Ambulatory/Diagnostic Orders: Basic Metabolic Panel [LAB.AMB] Time Frame: 2 Days, Location: None Selected Patient Instructions/Handouts: Syncope (DC) Activity/Diet/Wound Care/Special Instructions: Activity limited until follow up continue current diet follow up with primary care provider upon discharge follow up with cardiology in one week repeat labs in 2-3 days Discharge Disposition: HOME SELF-CARE
== END 2019-08-19 12:50 | disposition home or self-care (01) ==
LOC: 1SOBS 20:18
PROVIDERS: ADMIT Hospitalist; ATTEND Hospitalist
DX: R55 Syncope and collapse (principal); E11.649 Type 2 diabetes mellitus with hypoglycemia without coma; E78.5 Hyperlipidemia, unspecified; H91.90 Unspecified hearing loss, unspecified ear; I10 Essential (primary) hypertension; I70.0 Atherosclerosis of aorta; J44.9 Chronic obstructive pulmonary disease, unspecified; K21.9 Gastro-esophageal reflux disease without esophagitis; K44.9 Diaphragmatic hernia without obstruction or gangrene; Z79.84 Long term (current) use of oral hypoglycemic drugs; Z79.899 Other long term (current) drug therapy; Z85.01 Personal history of malignant neoplasm of esophagus; Z85.46 Personal history of malignant neoplasm of prostate; Z97.4 Presence of external hearing-aid; Z91.030 Bee allergy status; Z91.040 Latex allergy status; Z80.9 Family history of malignant neoplasm, unspecified; R00.1 Bradycardia, unspecified; Z98.42 Cataract extraction status, left eye; Z98.41 Cataract extraction status, right eye; M19.90 Unspecified osteoarthritis, unspecified site; H53.8 Other visual disturbances; I08.2 Rheumatic disorders of both aortic and tricuspid valves
CPT/HCPCS: 93005; 96372 ×2; 93306; 80061; 80053; 80048 ×2; 83735; 84100; 84484 ×2; 85025 ×3; 81003; 93880; G0378 ×3; G0379; J1644 ×2

== ENCOUNTER 2019-09-26 14:42 | Inpatient (IN) | payer MEDICARE, OTHER ==
[2019-09-26] MEDS ORDERED: SODIUM CHLORIDE 0.9% 1,000 ML IV STA ×2 (15:40)
[2019-09-26] MEDS ORDERED: MORPHINE SULFATE 4 MG/ML SYRINGE IV STA (15:40)
[2019-09-26] MEDS ORDERED: ONDANSETRON 4 MG/2 ML VIAL IVP STA (15:40)
[2019-09-26] MEDS ORDERED: KETOROLAC 30 MG/ML 1 ML VIAL IVP STA (15:40)
[2019-09-26] MEDS ORDERED: PANTOPRAZOLE 40 MG/10 ML VIAL IVP STA (15:40)
[2019-09-26 15:59] LABS: Basophils # (A) 0.1 k/uL (0-0.2); Basophils % (A) 1 %; Eosinophils # (A) 0.1 k/uL (0-0.7); Eosinophils % (A) 1 %; HCT 43.8 % (39.0-53.0); HGB 14.1 gm/dL (13.0-17.5); Lymphocytes # (A) 0.7 k/uL (1.0-4.8); Lymphocytes % (A) 8 %; MCH 31.5 pg (25.0-35.0); MCHC 32.3 g/dL (31.0-37.0); MCV 97.8 fL (80.0-100.0); Mean Platelet Volume 7.4; Monocytes # (A) 0.5 k/uL (0-1.0); Monocytes % (A) 6 %; Neutrophils % (A) 83 %; Platelet Count 149 k/uL (150-450); RBC 4.48 m/uL (4.30-5.90); RDW 13.7 % (11.5-15.5); WBC 8.5 k/uL (3.8-10.6)
[2019-09-26 16:08] LABS: ALT 16 U/L (4-49); AST 24 U/L (17-59); African American GFR (CKD) 38 (>60 ml/min/1.73 sqM); Alkaline Phosphatase 91 U/L (38-126); Amylase <30 U/L (30-110); Anion Gap 9 mmol/L; Blood Urea Nitrogen 21 mg/dL (9-20); Calcium 9.4 mg/dL (8.4-10.2); Carbon Dioxide 22 mmol/L (22-30); Chloride 108 mmol/L (98-107); Glucose 138 mg/dL (74-99); Non-African American GFR(CKD) 33 (>60 ml/min/1.73 sqM); Potassium 3.6 mmol/L (3.5-5.1); Sodium 139 mmol/L (137-145); Total Bilirubin 0.8 mg/dL (0.2-1.3)
[2019-09-26 16:11] LABS: Partial Thromboplastin Time 23.3 sec (22.0-30.0); Prothrombin Time 10.5 sec (9.0-12.0)
--- NOTE | 2019-09-26 16:41 | ED ---
Abdominal Pain HPI - General Chief Complaint: Abdominal Pain Stated Complaint: pain in right side going to back Time Seen by Provider: 09/26/19 15:17 Source: patient, RN notes reviewed, old records reviewed Mode of arrival: ambulatory Limitations: no limitations - History of Present Illness Initial Comments: 74-year-old male presents today for evaluation for concern for onset of right- sided abdominal pain starting this afternoon. He isn't having some nausea and vomiting. He reports that he has not had a bowel movement in the past 2 days which is also unusual for Patient, but he has been passing gas. He denies any pain with urination. He did have an outpatient stress test today. Patient is an past medical history of COPD, prostate cancer with surgery, throat cancer and surgery in 2016. Patient reports that he had his stomach pulled up in a portion of his esophagus was removed. He also had a feeding tube which is now removed and has had some problems with hernias related to the feeding tube and scar tissue of his abdomen in the past. He does have a surgeon, Dr. Brayan Garcia - Related Data Home Medications Medication Instructions Recorded Confirmed Atorvastatin [Lipitor] 20 mg PO W/SUPPER 05/25/18 08/17/19 Cholecalciferol [Vitamin D3] 400 unit PO W/SUPPER 05/25/18 08/17/19 Ferrous Sulfate [Iron] 325 mg PO BID 05/25/18 08/17/19 Hydrochlorothiazide 25 mg PO QAM 05/25/18 08/17/19 Losartan [Cozaar] 50 mg PO QAM 05/25/18 08/17/19 Omeprazole 20 mg PO W/SUPPER 05/25/18 08/17/19 Pioglitazone [Actos] 15 mg PO QAM 05/25/18 08/17/19 rOPINIRole HCL 5 mg PO HS 09/14/18 08/17/19 Previous Rx's Medication Instructions Recorded Multivitamins, Thera [Multivitamin 1 each PO DAILY@1200 30 Days #30 08/19/19 (formulary)] tab amLODIPine [Norvasc] 5 mg PO QAM 30 Days #30 tab 08/19/19 Allergies Allergy/AdvReac Type Severity Reaction Status Date / Time bee venom protein (honey bee) Allergy Severe Anaphylaxis Verified 09/26/19 14:50 latex Allergy Unknown Rash/Hives Verified 09/26/19 14:50 Review of Systems ROS Statement: Those systems with pertinent positive or pertinent negative responses have been documented in the HPI. ROS Other: All systems not noted in ROS Statement are negative. Past Medical History Past Medical History: Cancer, COPD, Diabetes Mellitus, GERD/Reflux, Hearing Disorder / Deafness, Hyperlipidemia, Hypertension Additional Past Medical History / Comment(s): COPD WITH SOB (NO RX)-( RIVET TESTER FOR 45 YEARS), HX OF PROSTATE CANCER WITH SURGERY, HX OF THROAT CANCER WITH SURGERY (2016), LOW IRON. BILATERAL HEARING AIDS. History of Any Multi-Drug Resistant Organisms: None Reported Past Surgical History: Orthopedic Surgery, Prostate Surgery Additional Past Surgical History / Comment(s): RIGHT SHOULDER X2, EGD'S, COLONOSCOPIES, MICAH CATARACTS, PATIENT STATES ESOPHAGUS REMOVED AND STOMACH USED. Past Anesthesia/Blood Transfusion Reactions: No Reported Reaction Past Psychological History: No Psychological Hx Reported Smoking Status: Never smoker Past Alcohol Use History: None Reported Past Drug Use History: None Reported - Past Family History Sister(s) Family Medical History: Cancer Additional Family Medical History / Comment(s): AT 13 YRS OF AGE. General Exam - General Exam Comments Initial Comments: 74 -year-old male. No distress. Limitations: no limitations General appearance: alert, in no apparent distress Head exam: Present: atraumatic, normocephalic, normal inspection Eye exam: Present: normal appearance, PERRL, EOMI. Absent: scleral icterus, conjunctival injection, periorbital swelling ENT exam: Present: normal exam, mucous membranes moist Neck exam: Present: normal inspection. Absent: tenderness, meningismus, lymphadenopathy Respiratory exam: Present: normal lung sounds bilaterally. Absent: respiratory distress, wheezes, rales, rhonchi, stridor Cardiovascular Exam: Present: regular rate, normal rhythm, normal heart sounds. Absent: systolic murmur, diastolic murmur, rubs, gallop, clicks GI/Abdominal exam: Present: soft, tenderness (R flank and RLQ tenderness), normal bowel sounds. Absent: distended, guarding, rebound, rigid Extremities exam: Present: normal inspection, full ROM, normal capillary refill. Absent: tenderness, pedal edema, joint swelling, calf tenderness Back exam: Present: normal inspection Neurological exam: Present: alert, oriented X3, CN II-XII intact Psychiatric exam: Present: normal affect, normal mood Skin exam: Present: warm, dry, intact, normal color. Absent: rash Course Vital Signs 09/26/19 14:50 Temperature 98 F Pulse Rate 60 Respiratory 18 Rate Blood Pressure 143/81 O2 Sat by Pulse 98 Oximetry Medical Decision Making - Medical Decision Making Patient is a 74-year-old male who presents emergency department today for evaluation for onset of right-sided flank pain and right lower abdominal pain as well as nausea and vomiting. Symptoms starting this afternoon. Patient was given IV fluids labwork obtained. Patient's urinalysis did show some trace blood. Clinical presentation with flank pain concerning for possible kidney stone. CT abdomen and pelvis with contrast was completed and does show some sciatica right-sided hydronephrosis. Patient has history of esophageal cancer with reconstructive surgery. He does have a large diaphragmatic hernia with janis wel and stomach within minutes however Patient doesn't clinically appear to be concerned for obstruction, likely patient's pain nausea vomiting is related to a passed ureter stone. On lab work he does show a significant decrease in kidney function. Creatinine is elevated at 1.95. This could be due to dehydration, vomiting as well as possible concern for obstructive stone. Urine culture will be completed. At this time Patient was admitted for a JUAN, hydronephrosis. Discussed the case with Dr. Wood. - Lab Data Result diagrams: 09/26/19 15:47 09/26/19 15:47 Lab Results 09/26/19 09/26/19 09/26/19 Range/Units 15:47 15:47 15:47 WBC 8.5 (3.8-10.6) k/uL RBC 4.48 (4.30-5.90) m/uL Hgb 14.1 (13.0-17.5) gm/dL Hct 43.8 (39.0-53.0) % MCV 97.8 (80.0-100.0) fL MCH 31.5 (25.0-35.0) pg MCHC 32.3 (31.0-37.0) g/dL RDW 13.7 (11.5-15.5) % Plt Count 149 L (150-450) k/uL Neutrophils % 83 % Lymphocytes % 8 % Monocytes % 6 % Eosinophils % 1 % Basophils % 1 % Neutrophils # 7.0 (1.3-7.7) k/uL Lymphocytes # 0.7 L (1.0-4.8) k/uL Monocytes # 0.5 (0-1.0) k/uL Eosinophils # 0.1 (0-0.7) k/uL Basophils # 0.1 (0-0.2) k/uL PT 10.5 (9.0-12.0) sec INR 1.0 (<1.2) APTT 23.3 (22.0-30.0) sec Sodium 139 (137-145) mmol/L Potassium 3.6 (3.5-5.1) mmol/L Chloride 108 H (98-107) mmol/L Carbon Dioxide 22 (22-30) mmol/L Anion Gap 9 mmol/L BUN 21 H (9-20) mg/dL Creatinine 1.95 H (0.66-1.25) mg/dL Est GFR (CKD-EPI)AfAm 38 (>60 ml/min/1.73 sqM) Est GFR (CKD-EPI)NonAf 33 (>60 ml/min/1.73 sqM) Glucose 138 H (74-99) mg/dL Calcium 9.4 (8.4-10.2) mg/dL Total Bilirubin 0.8 (0.2-1.3) mg/dL AST 24 (17-59) U/L ALT 16 (4-49) U/L Alkaline Phosphatase 91 (38-126) U/L Total Protein 7.0 (6.3-8.2) g/dL Albumin 4.0 (3.5-5.0) g/dL Amylase <30 L (30-110) U/L Lipase 60 (23-300) U/L Urine Color Urine Appearance (Clear) Urine pH (5.0-8.0) Ur Specific [place] (1.001-1.035) Urine Protein (Negative) Urine Glucose (UA) (Negative) Urine Ketones (Negative) Urine Blood (Negative) Urine Nitrite (Negative) Urine Bilirubin (Negative) Urine Urobilinogen (<2.0) mg/dL Ur Leukocyte Esterase (Negative) Urine RBC (0-5) /hpf Urine WBC (0-5) /hpf 09/26/19 Range/Units 16:36 WBC (3.8-10.6) k/uL RBC (4.30-5.90) m/uL Hgb (13.0-17.5) gm/dL Hct (39.0-53.0) % MCV (80.0-100.0) fL MCH (25.0-35.0) pg MCHC (31.0-37.0) g/dL RDW (11.5-15.5) % Plt Count (150-450) k/uL Neutrophils % % Lymphocytes % % Monocytes % % Eosinophils % % Basophils % % Neutrophils # (1.3-7.7) k/uL Lymphocytes # (1.0-4.8) k/uL Monocytes # (0-1.0) k/uL Eosinophils # (0-0.7) k/uL Basophils # (0-0.2) k/uL PT (9.0-12.0) sec INR (<1.2) APTT (22.0-30.0) sec Sodium (137-145) mmol/L Potassium (3.5-5.1) mmol/L Chloride (98-107) mmol/L Carbon Dioxide (22-30) mmol/L Anion Gap mmol/L BUN (9-20) mg/dL Creatinine (0.66-1.25) mg/dL Est GFR (CKD-EPI)AfAm (>60 ml/min/1.73 sqM) Est GFR (CKD-EPI)NonAf (>60 ml/min/1.73 sqM) Glucose (74-99) mg/dL Calcium (8.4-10.2) mg/dL Total Bilirubin (0.2-1.3) mg/dL AST (17-59) U/L ALT (4-49) U/L Alkaline Phosphatase (38-126) U/L Total Protein (6.3-8.2) g/dL Albumin (3.5-5.0) g/dL Amylase (30-110) U/L Lipase (23-300) U/L Urine Color Yellow Urine Appearance Clear (Clear) Urine pH 5.0 (5.0-8.0) Ur Specific [place] 1.025 (1.001-1.035) Urine Protein Trace H (Negative) Urine Glucose (UA) Negative (Negative) Urine Ketones Trace H (Negative) Urine Blood Trace H (Negative) Urine Nitrite Negative (Negative) Urine Bilirubin Negative (Negative) Urine Urobilinogen 2.0 (<2.0) mg/dL Ur Leukocyte Esterase Negative (Negative) Urine RBC 10 H (0-5) /hpf Urine WBC 1 (0-5) /hpf - Radiology Data Radiology results: report reviewed Mild right-sided hydronephrosis. No obstructing renal or ureteral stone as it is evident however. Nonobstructing right renal stone. Large posterior diaphragmatic hernia containing multiple loops of bowel as well as a stomach correlating for prior surgery as well. Disposition Clinical Impression: Hydronephrosis, JUAN (acute kidney injury), Dehydration, Nausea & vomiting Disposition: ADMITTED IP TO THIS HOSP Condition: Stable Is patient prescribed a controlled substance at d/c from ED?: No Referrals: Lexi Blackwood MD [Primary Care Provider] - 1-2 days Time of Disposition: 17:34
[2019-09-26 16:46] LABS: Appearance,Urine Clear (Clear); Bilirubin,Urine Negative (Negative); Blood,Urine Trace (Negative); Color,Urine Yellow; Glucose,Urine (UA) Negative (Negative); Ketones,Urine Trace (Negative); Leukocyte Esterase,Urine Negative (Negative); Nitrite,Urine Negative (Negative); Protein,Urine Trace (Negative); RBC,Urine 10 /hpf (0-5); Specific Gravity,Urine 1.025 (1.001-1.035); WBC,Urine 1 /hpf (0-5)
--- NOTE | 2019-09-26 17:04 | CT ---
EXAMINATION TYPE: CT abdomen pelvis wo con DATE OF EXAM: 09/26/2019 COMPARISON: None HISTORY: Right sided pain CT DLP: 733.3 mGycm Automated exposure control for dose reduction was used. Technique: Axial images 5 mm thick sections. Reconstructed images in the coronal plane. FINDINGS: Limited CT sections are obtained the lung bases. Some mild compressive atelectasis may be in the bila teral lung bases. There appears to be a morganii hernia with multiple loops of bowel within the posterior chest. The st omach is displaced into the posterior right chest. Consider gastric pull-through. CT ABDOMEN: Liver and spleen without contrast 7 normal density without discrete masses or cysts. The adrenal glands are normal. The gallbladder is unremarkable. Kidneys are normal without masses or cyst s. There is a renal stone on the right which is nonobstructing and measures 0.3 cm in the mid posteri or portion. There is some mild left hydroureter. No ureteral stones are evident. There appears to be some vascular calcification within the pelvis. Distal ureteral stone is considered less likely based on the coronal plane images. Loops of bowel within the abdomen and pelvis are unremarkable. Bowel loops are limited evaluation due to lack of oral contrast. Urinary bladder is unremarkable. The prostate contains some calcification. IMPRESSION: 1. MILD RIGHT HYDRONEPHROSIS. NO OBSTRUCTING RENAL OR URETERAL STONE IS EVIDENT HOWEVER. 2. NONOBSTRUCTING RIGHT RENAL STONE. 3. LARGE POSTERIOR DIAPHRAGMATIC HERNIA CONTAINING MULTIPLE LOOPS OF BOWEL WELL THE STOMACH. CO RRELATE FOR PRIOR SURGERY WELL IN THIS LOCATION.
[2019-09-26] MEDS ORDERED: MORPHINE SULFATE 4 MG/ML SYRINGE IV PRN (17:34)
[2019-09-26] MEDS ORDERED: NALOXONE 0.4 MG/ML 1 ML VIAL IV PRN (17:34)
[2019-09-26] MEDS ORDERED: KETOROLAC 30 MG/ML 1 ML VIAL IVP PRN (17:34)
[2019-09-26] MEDS: SODIUM CHLORIDE 0.9% 1,000 ML IV SCH (18:19)
[2019-09-26] MEDS ORDERED: ALPRAZolam 0.25 MG TAB PO PRN (18:34)
[2019-09-26] MEDS: HEPARIN SODIUM,PORCINE 5,000 UNIT/ML 1 ML VIAL SQ SCH (20:55)
[2019-09-26] MEDS: HYDROmorphone 0.5 MG/0.5 ML SYRINGE IVP PRN (20:55)
[2019-09-26 21:44] LABS: Glucose,Whole Blood 119 mg/dL (75-99)
--- NOTE | 2019-09-26 23:34 | HP ---
HISTORY AND PHYSICAL DATE OF SERVICE: 09/26/2019 CHIEF COMPLAINT: Abdominal pain, nausea, vomiting. HISTORY OF PRESENT ILLNESS: This 74-year-old gentleman with a past medical history of multiple medical problems, including history of COPD, history of diabetes mellitus, GERD, hearing defects, history of hypertension, hyperlipidemia, being followed by Dr. Blackwood in the outpatient setting, was not feeling well since this afternoon. The patient had some abdominal discomfort, nausea and vomiting at this time, unable to keep anything down. The patient has not had a bowel movement for the last 2 days, and the patient came to [facility] and was admitted for further evaluation and treatment. Evaluation showed features of acute renal failure and creatinine elevated up to 1.95. Baseline was normal. The patient follows with Dr. Blackwood in the outpatient setting. The patient also underwent a CT scan of the abdomen and pelvis which showed mild right hydronephrosis. No obstructing lesion was noted. A non-obstructing right renal stone was also noted. Large posterior diaphragmatic hernia containing multiple loops of bowel was also noted. The patient is being closely monitored. There is no history of any fever, rigor or chills. No history of headache, loss of consciousness, seizures. PAST MEDICAL HISTORY: History of COPD, diabetes mellitus, GERD, hard of hearing, hypertension, hyperlipidemia. HOME MEDICATIONS: Reviewed. They include: 1. Requip 5 mg at bedtime. 2. Norvasc 5 mg each morning. 3. Actos 7.5 mg each morning. 4. Omeprazole 20 mg with supper. 5. Multivitamins 1 p.o. daily. 6. Cozaar 50 mg each morning. 7. Hydrochlorothiazide 25 mg p.o. each morning. 8. Iron 320 mg at bedtime. 9. EpiPen 0.3 mg once p.r.n. 10.Lipitor 40 mg at bedtime. ALLERGIES: BEE VENOM and LATEX. FAMILY HISTORY: History of cancer in the family. SOCIAL HISTORY: No history of smoking. No history of alcohol intake. REVIEW OF SYSTEMS: ENT: No diminished hearing. No diminished vision. CARDIOVASCULAR SYSTEM: No angina, palpitations. RESPIRATORY SYSTEM: As mentioned earlier. GI: As mentioned earlier. : No dysuria or retention. NERVOUS SYSTEM: No numbness, weakness. ALLERGY/IMMUNOLOGY: No asthma, hayfever. MUSCULOSKELETAL: As mentioned earlier. HEMATOLOGY/ONCOLOGY: No history of anemia. ENDOCRINE: Diabetes mellitus. CONSTITUTIONAL: As mentioned earlier. DERMATOLOGY: Negative. RHEUMATOLOGY: Negative. PSYCHIATRY: As mentioned earlier. PHYSICAL EXAMINATION: Patient alert and oriented x3. Pulse 60, blood pressure 143/81, respiration 18, temperature 98 degrees, pulse ox 98% on room air. HEENT: Conjunctivae normal. Oral mucosa moist. NECK: No jugular venous distention. No carotid bruit. No lymph node enlargement. CARDIOVASCULAR SYSTEM: S1, S2 muffled. No S3. No S4. RESPIRATORY SYSTEM: Breath sounds diminished at the bases. No rhonchi. No crackles. ABDOMEN: Soft. Mild diffuse distention. Mild diffuse discomfort on palpation. No guarding. No rigidity. No mass palpable. LEGS: No edema. No swelling. NERVOUS SYSTEM: Higher functions as mentioned earlier. Moves all 4 limbs. No focal motor or sensory deficit. LYMPHATICS: No lymph node palpable in neck, axillae or groin. SKIN: No ulcer, rash, bleeding. JOINTS: No active deforming arthropathy. LABS: CBC within normal limits. Sodium 139, potassium 3.6. Creatinine is 1.95. ASSESSMENT: 1. Acute nausea, vomiting; possible acute gastroenteritis. 2. Acute renal failure, possibly prerenal acute tubular necrosis. 3. Mild thrombocytopenia. 4. History of chronic obstructive pulmonary disease. 5. Diabetes mellitus, type 2. 6. Gastroesophageal reflux disease. 7. Hard of hearing. 8. Hypertension. 9. Hyperlipidemia. 10.History of prostate cancer and surgery. 11.History of degenerative joint disease. 12.Possible LVOT obstruction with a 78/40 mm pressure gradient with presyncope and dizziness previously. RECOMMENDATIONS AND DISCUSSION: In this 74-year-old gentleman who presented with multiple complex medical issues, medical issues, we will recommend to continue the current medications, start IV fluids. Monitor creatinine closely. Symptomatic treatment will be provided. The patient was previously admitted with LVOT obstruction and syncope and also TIA. Will continue to monitor. Otherwise, prognosis is guarded because of multiple complex medical issues. Further recommendations to follow. Cardiology has seen the patient previously. See orders. Will resume some of the medications. Avoid nephrotoxic agents. Repeat labs, as mentioned earlier. Further recommendations to follow. Discussed with the patient and family, who understand and agree. A copy of this dictation is being forwarded to Dr. Blackwood, who is the primary physician. MMODL / IJN: [id number] /
[2019-09-27] MEDS: SODIUM CHLORIDE 0.9% 1,000 ML IV SCH ×2 (03:35→17:05)
[2019-09-27] MEDS: ACETAMINOPHEN TAB 325 MG TAB PO PRN ×2 (06:23→18:19)
[2019-09-27 07:08] LABS: Glucose,Whole Blood 103 mg/dL (75-99)
[2019-09-27] MEDS: ONDANSETRON 4 MG/2 ML VIAL IVP PRN (07:32)
[2019-09-27 08:05] LABS: Basophils % (A) 1 %; Eosinophils % (A) 1 %; HCT 35.6 % (39.0-53.0); HGB 11.5 gm/dL (13.0-17.5); Lymphocytes # (A) 0.6 k/uL (1.0-4.8); Lymphocytes % (A) 12 %; MCH 32.2 pg (25.0-35.0); MCHC 32.3 g/dL (31.0-37.0); MCV 99.9 fL (80.0-100.0); Mean Platelet Volume 7.9; Monocytes # (A) 0.4 k/uL (0-1.0); Monocytes % (A) 8 %; Neutrophils # (A) 3.7 k/uL (1.3-7.7); Neutrophils % (A) 77 %; Platelet Count 123 k/uL (150-450); RBC 3.56 m/uL (4.30-5.90); RDW 13.5 % (11.5-15.5); WBC 4.8 k/uL (3.8-10.6)
[2019-09-27 08:12] LABS: Calcium 7.9 mg/dL (8.4-10.2); Potassium 3.9 mmol/L (3.5-5.1)
[2019-09-27] MEDS ORDERED: PANTOPRAZOLE 40 MG/10 ML VIAL IV SCH (09:00)
[2019-09-27] MEDS: PANTOPRAZOLE 40 MG/10 ML VIAL IVP SCH ×2 (09:25→20:47)
[2019-09-27] MEDS: HEPARIN SODIUM,PORCINE 5,000 UNIT/ML 1 ML VIAL SQ SCH ×2 (09:25→20:47)
[2019-09-27] MEDS: MULTIVITAMINS, THERA 1 EACH TAB PO SCH (09:26)
[2019-09-27] MEDS: amLODIPine 5 MG TAB PO SCH (09:26)
[2019-09-27] MEDS: HYDROcodone/APAP 5-325MG 1 EACH TAB PO PRN ×2 (09:26→20:47)
[2019-09-27] MEDS: PIOGLITAZONE 15 MG TAB PO SCH (09:26)
[2019-09-27 11:41] LABS: Glucose,Whole Blood 98 mg/dL (75-99)
[2019-09-27 16:51] LABS: Glucose,Whole Blood 114 mg/dL (75-99)
[2019-09-27] MEDS: HYDROmorphone 0.5 MG/0.5 ML SYRINGE IVP PRN (17:03)
[2019-09-27 20:43] LABS: Glucose,Whole Blood 108 mg/dL (75-99)
--- NOTE | 2019-09-27 21:53 | PN ---
PROGRESS NOTE DATE OF SERVICE: 09/27/2019 This 74-year-old gentleman admitted with abdominal pain, nausea, vomiting is being closely monitored. No chest pain. No palpitations. No fever. The creatinine has slightly improved with IV hydration at 1.85. EXAM: Alert and oriented x3. Pulse is 54, blood pressure 103/58, respirations 16, temperature 98.4, pulse ox 98% on room air. HEENT: Conjunctivae normal. NECK: No JVD. CARDIOVASCULAR: S1, S2 muffled. LUNGS: Diminished breath sounds at the bases. Bilateral scattered rhonchi and crackles. ABDOMEN: Soft, nontender. LEGS: No swelling. NERVOUS SYSTEM: No focal deficits. LABS: WBC 4.8, hemoglobin 11.6, sodium 130, potassium 3.9, creatinine is 1.85. ASSESSMENT: 1. Acute nausea, vomiting, possible acute gastroenteritis. 2. Acute renal failure, possibly prerenal acute tubular necrosis. 3. Mild thrombocytopenia. 4. History of chronic obstructive pulmonary disease. 5. Diabetes mellitus type 2. 6. Gastroesophageal reflux disease. 7. Hard of hearing. 8. Hypertension. 9. Hyperlipidemia. 10.History of prostate cancer surgery. 11.History of degenerative joint disease. 12.History of previous LVOT obstruction with 78/40 pressure gradient with presyncope and dizziness previously. RECOMMENDATIONS AND DISCUSSION: Recommend to continue current medication, continue to monitor, continue symptomatic treatment. Cultures are negative so far. Advance diet. Guarded prognosis. Further recommendations to follow. MMODL / IJN: [id number] /
[2019-09-28] MEDS: ONDANSETRON 4 MG/2 ML VIAL IVP PRN ×2 (00:51→08:31)
[2019-09-28] MEDS: HYDROmorphone 0.5 MG/0.5 ML SYRINGE IVP PRN ×3 (00:52→17:43)
[2019-09-28] MEDS: SODIUM CHLORIDE 0.9% 1,000 ML IV SCH ×4 (05:42→23:55)
[2019-09-28] MEDS: HYDROcodone/APAP 5-325MG 1 EACH TAB PO PRN ×3 (05:45→20:30)
[2019-09-28 07:06] LABS: Glucose,Whole Blood 103 mg/dL (75-99)
[2019-09-28 08:04] LABS: Potassium 4.1 mmol/L (3.5-5.1)
[2019-09-28 08:10] LABS: Basophils % (A) 0 %; Eosinophils % (A) 1 %; HCT 36.1 % (39.0-53.0); HGB 11.8 gm/dL (13.0-17.5); Lymphocytes # (A) 0.6 k/uL (1.0-4.8); Lymphocytes % (A) 8 %; MCH 32.7 pg (25.0-35.0); MCHC 32.8 g/dL (31.0-37.0); MCV 99.8 fL (80.0-100.0); Mean Platelet Volume 9.1; Monocytes # (A) 0.5 k/uL (0-1.0); Monocytes % (A) 7 %; Neutrophils # (A) 5.6 k/uL (1.3-7.7); Neutrophils % (A) 83 %; Platelet Count 125 k/uL (150-450); RBC 3.62 m/uL (4.30-5.90); RDW 13.4 % (11.5-15.5); WBC 6.7 k/uL (3.8-10.6)
[2019-09-28] MEDS: PANTOPRAZOLE 40 MG/10 ML VIAL IVP SCH ×2 (08:31→20:30)
[2019-09-28] MEDS: HEPARIN SODIUM,PORCINE 5,000 UNIT/ML 1 ML VIAL SQ SCH ×2 (08:31→20:30)
[2019-09-28] MEDS: amLODIPine 5 MG TAB PO SCH (09:51)
[2019-09-28] MEDS: PIOGLITAZONE 15 MG TAB PO SCH (09:51)
[2019-09-28 11:49] LABS: Glucose,Whole Blood 97 mg/dL (75-99)
[2019-09-28] MEDS: MULTIVITAMINS, THERA 1 EACH TAB PO SCH (11:54)
[2019-09-28] MEDS: METOCLOPRAMIDE 5 MG/ML 2 ML VIAL IVP SCH ×3 (12:32→23:55)
--- NOTE | 2019-09-28 13:55 | XR ---
EXAMINATION TYPE: XR abdomen 2V DATE OF EXAM: 09/28/2019 COMPARISON: NONE HISTORY: Nausea and vomiting TECHNIQUE: One view abdominal series FINDINGS: There appears to be a diaphragmatic hernia. Bilateral lower lobe infiltrate and pleural effusion. Pro minent bowel loops are seen with air-fluid levels. Hypertrophic and degenerative change the spine. Nu merous calcifications in the pelvis are likely vascular. Arthropathy and hypertrophic change of the h ip joints. IMPRESSION: 1. Nonspecific abdomen correlate for obstruction, enteritis or ileus. 2. Diaphragmatic hernia. 3. Bilateral lower lobe infiltrate and small effusion
--- NOTE | 2019-09-28 14:11 | P.GSCN ---
History of Present Illness Consult date: 09/28/19 History of present illness: 74-year-old male well-known to me from the office setting presents to the emergency department with complaints of right flank pain, nausea and vomiting. He states that the pain started somewhat suddenly and progressively got worse. He states that the pain started in his right abdomen and has traveled to the right flank. He states that any oral intake he is unable to tolerate and is vomiting. He is noted to have a history of esophageal cancer and has had an esophagectomy approximately 3 or 4 years ago in the [facility]. CT of the abdomen and pelvis was done and did show right-sided hydronephrosis and concern for nephrolithiasis. He also is known to have a chronic posterior diaphragmatic hernia, likely secondary to his previous esophagectomy procedure. At this point, he is resting comfortably and denies any fevers, chills, chest pain or shortness of breath. 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 BILATERAL HEARING AIDS. History of Any Multi-Drug Resistant Organisms: None Reported Past Surgical History: Orthopedic Surgery, Prostate Surgery Additional Past Surgical History / Comment(s): RIGHT SHOULDER X2, EGD'S, COLONOSCOPIES, MICAH CATARACTS, PATIENT STATES ESOPHAGUS REMOVED AND STOMACH USED. Past Anesthesia/Blood Transfusion Reactions: No Reported Reaction Past Psychological History: No Psychological Hx Reported Smoking Status: Never smoker Past Alcohol Use History: None Reported Past Drug Use History: None Reported - Past Family History Sister(s) Family Medical History: Cancer Additional Family Medical History / Comment(s): AT 13 YRS OF AGE. Medications and Allergies Home Medications Medication Instructions Recorded Confirmed Type RX: Atorvastatin [Lipitor] 40 mg PO HS 05/25/18 09/26/19 History RX: Ferrous Sulfate [Iron] 325 mg PO HS 05/25/18 09/26/19 History RX: Hydrochlorothiazide 25 mg PO QAM 05/25/18 09/26/19 History RX: Losartan [Cozaar] 50 mg PO QAM 05/25/18 09/26/19 History RX: Omeprazole 20 mg PO W/SUPPER 05/25/18 09/26/19 History RX: Pioglitazone [Actos] 7.5 mg PO QAM 05/25/18 09/26/19 History RX: rOPINIRole HCL 5 mg PO HS 09/14/18 09/26/19 History RX: amLODIPine [Norvasc] 5 mg PO QAM 30 Days #30 tab 08/19/19 09/26/19 Rx EPINEPHrine (Auto Inject) [Epipen] 0.3 mg IM ONCE PRN 09/26/19 09/26/19 History RX: Multivitamins, Thera 1 tab PO DAILY@1200 09/26/19 09/26/19 History [Multivitamin (formulary)] Allergies Allergy/AdvReac Type Severity Reaction Status Date / Time bee venom protein (honey bee) Allergy Severe Anaphylaxis Verified 09/26/19 17:51 latex Allergy Unknown Rash/Hives Verified 09/26/19 17:51 Surgical - Exam Osteopathic Statement: *. No significant issues noted on an osteopathic structural exam other than those noted in the History and Physical/Consult. Vital Signs Temp Pulse Resp BP Pulse Ox 98 F 60 18 143/81 98 09/26/19 14:50 09/26/19 14:50 09/26/19 14:50 09/26/19 14:50 09/26/19 14:50 - General well nourished, no distress - Eyes PERRL - ENT normal mucosa, no hearing loss - Neck trachea midline - Respiratory normal respiratory effort - Abdomen Soft, nontender, nondistended, no rebound, no guarding - Psychiatric oriented to time, oriented to person, oriented to place Results - Labs 09/28/19 06:56 09/28/19 06:56 Abnormal Lab Results - Last 24 Hours (Table) 09/27/19 09/27/19 09/28/19 Range/Units 16:49 20:40 06:56 RBC 3.62 L (4.30-5.90) m/uL Hgb 11.8 L (13.0-17.5) gm/dL Hct 36.1 L (39.0-53.0) % Plt Count 125 L (150-450) k/uL Lymphocytes # 0.6 L (1.0-4.8) k/uL Chloride (98-107) mmol/L Carbon Dioxide (22-30) mmol/L Creatinine (0.66-1.25) mg/dL Glucose (74-99) mg/dL POC Glucose (mg/dL) 114 H 108 H (75-99) mg/dL Calcium (8.4-10.2) mg/dL C-Reactive Protein (<10.0) mg/L 09/28/19 09/28/19 09/28/19 Range/Units 06:56 06:56 06:56 RBC (4.30-5.90) m/uL Hgb (13.0-17.5) gm/dL Hct (39.0-53.0) % Plt Count (150-450) k/uL Lymphocytes # (1.0-4.8) k/uL Chloride 113 H (98-107) mmol/L Carbon Dioxide 20 L (22-30) mmol/L Creatinine 1.71 H (0.66-1.25) mg/dL Glucose 101 H (74-99) mg/dL POC Glucose (mg/dL) 103 H (75-99) mg/dL Calcium 8.0 L (8.4-10.2) mg/dL C-Reactive Protein 12.1 H (<10.0) mg/L Diabetes panel 09/28/19 Range/Units 06:56 Sodium 138 (137-145) mmol/L Potassium 4.1 (3.5-5.1) mmol/L Chloride 113 H (98-107) mmol/L Carbon Dioxide 20 L (22-30) mmol/L BUN 20 (9-20) mg/dL Creatinine 1.71 H (0.66-1.25) mg/dL Glucose 101 H (74-99) mg/dL Calcium 8.0 L (8.4-10.2) mg/dL Calcium panel 09/28/19 Range/Units 06:56 Calcium 8.0 L (8.4-10.2) mg/dL Pituitary panel 09/28/19 Range/Units 06:56 Sodium 138 (137-145) mmol/L Potassium 4.1 (3.5-5.1) mmol/L Chloride 113 H (98-107) mmol/L Carbon Dioxide 20 L (22-30) mmol/L BUN 20 (9-20) mg/dL Creatinine 1.71 H (0.66-1.25) mg/dL Glucose 101 H (74-99) mg/dL Calcium 8.0 L (8.4-10.2) mg/dL Adrenal panel 09/28/19 Range/Units 06:56 Sodium 138 (137-145) mmol/L Potassium 4.1 (3.5-5.1) mmol/L Chloride 113 H (98-107) mmol/L Carbon Dioxide 20 L (22-30) mmol/L BUN 20 (9-20) mg/dL Creatinine 1.71 H (0.66-1.25) mg/dL Glucose 101 H (74-99) mg/dL Calcium 8.0 L (8.4-10.2) mg/dL Assessment and Plan (1) Nausea & vomiting Narrative/Plan: I discussed the case with the patient and the patient's at bedside. At this point, it does not appear that he is having an obstructive process secondary to the diaphragmatic hernia. As I discussed with him today and when I did see him in the office, repair of his diaphragmatic hernia would be a extensive procedure. If he would require this repair, he would have to follow-up with his chest surgeon that performed his previous esophagectomy in the [facility]. It does not appear that the diaphragmatic hernia is causing the nausea and vomiting, as his pain is mostly in the right flank. Urology recommendations are pending for right hydronephrosis and possibility of nephrolithiasis. We will continue to follow and make recommendations based on the patient's clinical progress. Continue clear liquid diet and antiemetic medication at this time. Current Visit: Yes Status: Acute Code(s): R11.2 - NAUSEA WITH VOMITING, UNSPECIFIED SNOMED Code(s): 13830408
--- NOTE | 2019-09-28 15:22 | XR ---
EXAMINATION TYPE: XR chest 1V portable DATE OF EXAM: 09/28/2019 COMPARISON: 05/14/2015 HISTORY: Shortness of breath and cough TECHNIQUE: Single frontal view of the chest is obtained. FINDINGS: New masslike opacity is seen within the right middle lobe. Trace left pleural effusion and associated left basilar probable atelectasis is also seen. Reverse right humeral arthroplasty. Enlar ged cardiomediastinal silhouette. Diffuse osseous demineralization. Trace right pleural effusion also seen. IMPRESSION: Masslike consolidation of the right middle lobe most likely relates to pneumonia however follow-up after treatment is recommended to exclude mass. There are trace bilateral pleural effusion s and probable left basilar atelectasis also seen.
--- NOTE | 2019-09-28 16:35 | PN ---
PROGRESS NOTE DATE OF SERVICE: 09/28/2019 This 74-year-old gentleman, admitted with abdominal pain, nausea and vomiting is complaining of back pain also at this time. The CT scan of the abdomen was done yesterday which showed multiple findings, including mild right hydronephrosis, no obstructing renal calculi, a non-obstructing right renal stone and a large posterior diaphragmatic hernia containing small loops of bowel. A plain x-ray KUB, which was reviewed personally by me today, showed nonspecific abdomen, diaphragmatic hernia, bilateral lower lobe infiltrate and a small effusion. Dr. Capps's evaluation has been sought. Repair of diaphragmatic hernia would be an extensive procedure. The patient had a previous esophagectomy in [facility]. Urology has been consulted. At this time the patient is being closely monitored. Patient has significant pain and difficulties, as mentioned earlier. Past medical history reviewed. REVIEW OF SYSTEMS: CARDIOVASCULAR SYSTEM: No angina, palpitations. RESPIRATORY SYSTEM: No cough, hemoptysis. GI: As mentioned earlier. : No dysuria or retention. NERVOUS SYSTEM: No numbness, weakness. CURRENT MEDICATIONS: Reviewed. They include: 1. Tylenol p.r.n. 2. Success 5 mg q.6 p.r.n. 3. Xanax. 4. Norvasc 5 mg each morning. 5. Dilaudid. 6. Reglan. 7. Multivitamins. 8. Zofran. 9. Protonix. 10.Actos. 11.Requip. PHYSICAL EXAMINATION: Patient is alert, oriented x3. Pulse is 51, blood pressure 158/81, respiration 16, temperature 97.4, pulse ox 92% on 2 L. HEENT: Conjunctivae normal. NECK: No jugular venous distention. CARDIOVASCULAR SYSTEM: S1, S2 muffled. RESPIRATORY SYSTEM: Breath sounds diminished at the bases. A few scattered rhonchi and crackles. ABDOMEN: Soft, non-tender. No guarding. No rigidity. No mass palpable. Mild diffuse discomfort. EXAMINATION OF THE BACK: Tenderness in the spine as well as left renal angle also present. NERVOUS SYSTEM: No focal deficit. LABS: WBC 6.6, hemoglobin 11.8, platelets 125. Otherwise, creatinine is 1.71. C-reactive protein is 12.1. ESR is 7. ASSESSMENT: 1. Acute nausea and vomiting; possible acute gastroenteritis. 2. Continued back pain; possible urolithiasis. 3. Acute renal failure, possibly prerenal acute tubular necrosis. 4. Mild thrombocytopenia. 5. Mild right hydronephrosis as well as non-obstructive right renal stone on the CT scan. 6. Large posterior diaphragmatic hernia with multiple bowel loops on the CT scan. 7. History of chronic obstructive pulmonary disease. 8. Diabetes mellitus, type 2. 9. History of esophagectomy. 10.Gastroesophageal reflux disease. 11.Hard of hearing. 12.Hypertension. 13.Hyperlipidemia. 14.History of prostate cancer and surgery. 15.History of degenerative joint disease. 16.Possible LVOT obstruction with 78/40 mm gradient with presyncope and dizziness previously. 17.Possible atelectasis. RECOMMENDATIONS AND DISCUSSION: In this 74-year-old gentleman who presented with multiple complex medical issues, we will monitor the patient closely, continue the current medications, continue with symptomatic treatment. Proton pump inhibitors. I would also recommend surgical evaluation as well as urology evaluation. Chest x-ray to look for any infiltrates or atelectasis. Resume the home medications. Repeat labs. Guarded prognosis. Further recommendations to follow. MMODL / IJN: [id number] /
[2019-09-28 16:44] LABS: Glucose,Whole Blood 98 mg/dL (75-99)
[2019-09-28 20:17] LABS: Glucose,Whole Blood 114 mg/dL (75-99)
--- NOTE | 2019-09-28 20:53 | P.GSCN ---
History of Present Illness Consult date: 09/28/19 Reason for Consult: Right hydronephrosis Requesting physician: Obed Ba History of present illness: The patient is a 74-year-old male with an unremarkable urologic history. Specifically, he denies any prior history of UTIs or urolithiasis. However, he presented to the emergency room on 09/26/2019 with right flank pain radiating to the right lower quadrant. This was associated with nausea and vomiting. A computed tomography scan revealed a 3 mm nonobstructing right renal calculus. There was also evidence of mild right hydronephrosis. His pain has persisted and I am consulted for this reason. 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 BILATERAL HEARING AIDS. History of Any Multi-Drug Resistant Organisms: None Reported Past Surgical History: Orthopedic Surgery, Prostate Surgery Additional Past Surgical History / Comment(s): RIGHT SHOULDER X2, EGD'S, COLONOSCOPIES, MICAH CATARACTS, PATIENT STATES ESOPHAGUS REMOVED AND STOMACH USED. Past Anesthesia/Blood Transfusion Reactions: No Reported Reaction Past Psychological History: No Psychological Hx Reported Smoking Status: Never smoker Past Alcohol Use History: None Reported Past Drug Use History: None Reported - Past Family History Sister(s) Family Medical History: Cancer Additional Family Medical History / Comment(s): AT 13 YRS OF AGE. Medications and Allergies Home Medications Medication Instructions Recorded Confirmed Type Atorvastatin [Lipitor] 40 mg PO HS 05/25/18 09/26/19 History Ferrous Sulfate [Iron] 325 mg PO HS 05/25/18 09/26/19 History Hydrochlorothiazide 25 mg PO QAM 05/25/18 09/26/19 History Losartan [Cozaar] 50 mg PO QAM 05/25/18 09/26/19 History Omeprazole 20 mg PO W/SUPPER 05/25/18 09/26/19 History Pioglitazone [Actos] 7.5 mg PO QAM 05/25/18 09/26/19 History rOPINIRole HCL 5 mg PO HS 09/14/18 09/26/19 History amLODIPine [Norvasc] 5 mg PO QAM 30 Days #30 tab 08/19/19 09/26/19 Rx EPINEPHrine (Auto Inject) [Epipen] 0.3 mg IM ONCE PRN 09/26/19 09/26/19 History Multivitamins, Thera [Multivitamin 1 tab PO DAILY@1200 09/26/19 09/26/19 History (formulary)] Allergies Allergy/AdvReac Type Severity Reaction Status Date / Time bee venom protein (honey bee) Allergy Severe Anaphylaxis Verified 09/26/19 17:51 latex Allergy Unknown Rash/Hives Verified 09/26/19 17:51 Surgical - Exam Vital Signs Temp Pulse Resp BP Pulse Ox 98 F 60 18 143/81 98 09/26/19 14:50 09/26/19 14:50 09/26/19 14:50 09/26/19 14:50 09/26/19 14:50 - General well developed, well nourished, no distress - Respiratory normal respiratory effort - Abdomen Abdomen: soft, tender (Mild right-sided tenderness to palpation), no masses, no guarding, no rigid, no rebound, no distended - Genitourinary normal penis with no external lesions, testicles non-tender - Psychiatric oriented to time, oriented to person, oriented to place, speech is normal, memory intact Results - Labs 09/28/19 06:56 09/28/19 06:56 Abnormal Lab Results - Last 24 Hours (Table) 09/27/19 09/28/19 09/28/19 Range/Units 20:40 06:56 06:56 RBC 3.62 L (4.30-5.90) m/uL Hgb 11.8 L (13.0-17.5) gm/dL Hct 36.1 L (39.0-53.0) % Plt Count 125 L (150-450) k/uL Lymphocytes # 0.6 L (1.0-4.8) k/uL Chloride 113 H (98-107) mmol/L Carbon Dioxide 20 L (22-30) mmol/L Creatinine 1.71 H (0.66-1.25) mg/dL Glucose 101 H (74-99) mg/dL POC Glucose (mg/dL) 108 H (75-99) mg/dL Calcium 8.0 L (8.4-10.2) mg/dL C-Reactive Protein (<10.0) mg/L 09/28/19 09/28/19 Range/Units 06:56 06:56 RBC (4.30-5.90) m/uL Hgb (13.0-17.5) gm/dL Hct (39.0-53.0) % Plt Count (150-450) k/uL Lymphocytes # (1.0-4.8) k/uL Chloride (98-107) mmol/L Carbon Dioxide (22-30) mmol/L Creatinine (0.66-1.25) mg/dL Glucose (74-99) mg/dL POC Glucose (mg/dL) 103 H (75-99) mg/dL Calcium (8.4-10.2) mg/dL C-Reactive Protein 12.1 H (<10.0) mg/L Diabetes panel 09/28/19 Range/Units 06:56 Sodium 138 (137-145) mmol/L Potassium 4.1 (3.5-5.1) mmol/L Chloride 113 H (98-107) mmol/L Carbon Dioxide 20 L (22-30) mmol/L BUN 20 (9-20) mg/dL Creatinine 1.71 H (0.66-1.25) mg/dL Glucose 101 H (74-99) mg/dL Calcium 8.0 L (8.4-10.2) mg/dL Calcium panel 09/28/19 Range/Units 06:56 Calcium 8.0 L (8.4-10.2) mg/dL Pituitary panel 09/28/19 Range/Units 06:56 Sodium 138 (137-145) mmol/L Potassium 4.1 (3.5-5.1) mmol/L Chloride 113 H (98-107) mmol/L Carbon Dioxide 20 L (22-30) mmol/L BUN 20 (9-20) mg/dL Creatinine 1.71 H (0.66-1.25) mg/dL Glucose 101 H (74-99) mg/dL Calcium 8.0 L (8.4-10.2) mg/dL Adrenal panel 09/28/19 Range/Units 06:56 Sodium 138 (137-145) mmol/L Potassium 4.1 (3.5-5.1) mmol/L Chloride 113 H (98-107) mmol/L Carbon Dioxide 20 L (22-30) mmol/L BUN 20 (9-20) mg/dL Creatinine 1.71 H (0.66-1.25) mg/dL Glucose 101 H (74-99) mg/dL Calcium 8.0 L (8.4-10.2) mg/dL - Imaging CT scan - abdomen: report reviewed, image reviewed Assessment and Plan (1) Hydronephrosis Current Visit: Yes Status: Acute Code(s): N13.30 - UNSPECIFIED HYDRONEPHROSIS SNOMED Code(s): 90342317 (2) Renal calculus Current Visit: Yes Status: Acute Code(s): N20.0 - CALCULUS OF KIDNEY SNOMED Code(s): 11979897 Plan: I explained to Mr. Webb that the right hydronephrosis cannot be attributed to the 3 mm right renal calculus. Therefore, the etiology of the hydronephrosis is unclear. It could be due to a ureteral calculus which passed prior to the computed tomography scan being done, but if that were the case one would expect that his pain would now be improved. Given his persistent symptoms, we discussed options which include a repeat computed tomography scan versus cystoscopy, right retrograde pyelogram, possible right ureteroscopy, possible right ureteral stent insertion. He chooses to proceed with the latter approach, and I'm hopeful that this can be performed tomorrow. I explained potential risks, which include anesthesia, infection, and ureteral injury. Time with Patient: Greater than 30
[2019-09-29] MEDS: METOCLOPRAMIDE 5 MG/ML 2 ML VIAL IVP SCH ×4 (05:37→23:39)
[2019-09-29 06:58] LABS: Glucose,Whole Blood 92 mg/dL (75-99)
--- NOTE | 2019-09-29 08:30 | P.PN ---
Progress Note - Text Progress Note Date: 09/29/19 Mr. Webb states that he is feeling much better this morning. His pain is significantly diminished. He received an antiemetic overnight, but denies any nausea or vomiting. He is passing flatus this morning. He has not had any bowel movements since September 25. He may have passed a calculus prior to the computed tomography scan being performed on September 26, and may have had a paralytic ileus as a result of that stone. His symptoms appear to be resolving, so the planned surgical procedure will be canceled. I am hopeful that his condition will continue to improve. If this is the case and he can be discharged within 2448 hours, arrangements will be made for a renal ultrasound in 1 month to confirm resolution of his hydronephrosis.
[2019-09-29 08:39] LABS: Basophils % (A) 1 %; Eosinophils # (A) 0.1 k/uL (0-0.7); Eosinophils % (A) 1 %; HCT 35.3 % (39.0-53.0); HGB 11.4 gm/dL (13.0-17.5); Lymphocytes # (A) 0.6 k/uL (1.0-4.8); Lymphocytes % (A) 10 %; MCH 32.2 pg (25.0-35.0); MCHC 32.4 g/dL (31.0-37.0); MCV 99.1 fL (80.0-100.0); Mean Platelet Volume 8.4; Monocytes # (A) 0.5 k/uL (0-1.0); Monocytes % (A) 9 %; Neutrophils # (A) 4.5 k/uL (1.3-7.7); Neutrophils % (A) 78 %; Platelet Count 141 k/uL (150-450); RBC 3.56 m/uL (4.30-5.90); RDW 13.5 % (11.5-15.5); WBC 5.8 k/uL (3.8-10.6)
[2019-09-29 08:47] LABS: Calcium 8.2 mg/dL (8.4-10.2)
[2019-09-29] MEDS: HEPARIN SODIUM,PORCINE 5,000 UNIT/ML 1 ML VIAL SQ SCH ×2 (09:55→20:01)
[2019-09-29] MEDS: PANTOPRAZOLE 40 MG/10 ML VIAL IVP SCH (09:55)
[2019-09-29] MEDS: amLODIPine 5 MG TAB PO SCH (09:55)
[2019-09-29] MEDS: PIOGLITAZONE 15 MG TAB PO SCH (09:57)
[2019-09-29 11:41] LABS: Glucose,Whole Blood 88 mg/dL (75-99)
[2019-09-29] MEDS: MULTIVITAMINS, THERA 1 EACH TAB PO SCH (12:12)
--- NOTE | 2019-09-29 13:54 | P.PN ---
Subjective Progress Note Date: 09/29/19 Patient seen and examined at bedside. States he is feeling much better. His flank pain has resolved. States he is holding down food. He believes he has passed some kidney stones. He has had flatus and has had 1 small bowel movement. Objective - Vital Signs Vital signs: Vital Signs Temp 98.3 F 09/29/19 07:12 Pulse 61 09/29/19 07:12 Resp 15 09/29/19 07:12 BP 137/74 09/29/19 07:12 Pulse Ox 93 L 09/29/19 07:12 Intake & Output 09/28/19 09/29/19 09/29/19 18:59 06:59 18:59 Intake Total 1440 Output Total 175 Balance 1265 Intake: Intake, IV Titration 1200 Amount Sodium Chloride 0.9% 1, 1200 000 ml @ 100 mls/hr IV . Q10H [facility] Rx#:[id number] Oral 240 Output: Urine 175 Other: Voiding Method Toilet Toilet Urinal Urinal Urinal # Voids 1 1 # Emeses 1 - Constitutional General appearance: Present: cooperative, no acute distress - Gastrointestinal Gastrointestinal Comment(s): Soft, nontender, nondistended, no rebound, no guarding - Psychiatric Psychiatric: Present: A&O x's 3 - Labs CBC & Chem 7: 09/29/19 07:37 09/29/19 07:37 Labs: Abnormal Lab Results - Last 24 Hours (Table) 09/28/19 09/29/19 09/29/19 Range/Units 20:14 07:37 07:37 RBC 3.56 L (4.30-5.90) m/uL Hgb 11.4 L (13.0-17.5) gm/dL Hct 35.3 L (39.0-53.0) % Plt Count 141 L (150-450) k/uL Lymphocytes # 0.6 L (1.0-4.8) k/uL Chloride 114 H (98-107) mmol/L Carbon Dioxide 21 L (22-30) mmol/L Creatinine 1.58 H (0.66-1.25) mg/dL POC Glucose (mg/dL) 114 H (75-99) mg/dL Calcium 8.2 L (8.4-10.2) mg/dL Assessment and Plan (1) Nausea & vomiting Narrative/Plan: Nausea and vomiting are resolving along with the patient's pain. He is being followed by urology. Okay to continue advancing diet as tolerated. Pain likely secondary to passing of nephrolithiasis. Ileus appears to be resolving. Progressing slowly. Current Visit: Yes Status: Acute Code(s): R11.2 - NAUSEA WITH VOMITING, UNSPECIFIED SNOMED Code(s): 66335714
[2019-09-29 17:08] LABS: Glucose,Whole Blood 87 mg/dL (75-99)
[2019-09-29] MEDS: SODIUM CHLORIDE 0.9% 1,000 ML IV SCH (17:25)
[2019-09-29 20:00] LABS: Glucose,Whole Blood 116 mg/dL (75-99)
[2019-09-29] MEDS: PANTOPRAZOLE 40 MG TABLET PO SCH (20:02)
--- NOTE | 2019-09-29 23:37 | PN ---
PROGRESS NOTE DATE OF SERVICE: 09/29/2019 This 74-year-old gentleman admitted with significant nausea and vomiting also had abdominal pain. The patient had hydronephrosis, nephrolithiasis. Dr. Parikh has cancelled the procedure for today. Surgery is following the patient. Please note also after esophagectomy patient had significant diaphragmatic hernia. Dr. Capps has recommended that the patient follow up with his primary surgery in case of any issues. Otherwise, the patient is being closely monitored. Past medical history reviewed. REVIEW OF SYSTEMS: CARDIOVASCULAR SYSTEM: No angina, palpitations. RESPIRATORY SYSTEM: As mentioned earlier. GI: As mentioned earlier. : As mentioned earlier. NERVOUS SYSTEM: No numbness, weakness. CURRENT MEDICATIONS: Reviewed. They include: 1. Tylenol p.r.n. 2. [place] 5 mg q.6 p.r.n. 3. Xanax 0.25 t.i.d. 4. Norvasc 5 mg each morning. 5. Heparin 5000 units subcutaneously b.i.d. 6. Dilaudid p.r.n. 7. Reglan. 8. Multivitamins. 9. Narcan. 10.Zofran. 11.Protonix 40 mg b.i.d. 12.Actos 7.5 mg each morning. 13.Requip 5 mg p.o. daily. PHYSICAL EXAMINATION: Patient is alert and oriented x3. Pulse 62, blood pressure 130/78, respirations 16, temperature 98.4, pulse ox 94% on room air. HEENT: Conjunctivae normal. NECK: No jugular venous distention. CARDIOVASCULAR SYSTEM: S1, S2 muffled. RESPIRATORY SYSTEM: Breath sounds diminished at the bases. Scattered rhonchi and crackles. ABDOMEN: Soft, non-tender. No mass palpable. LEGS: No edema. No swelling. NERVOUS SYSTEM: No focal deficit. LABS: WBC 5.8, hemoglobin 11.4. Sodium 139, potassium 4. ASSESSMENT: 1. Acute nausea and vomiting; possibly acute gastroenteritis. 2. Back pain; possible urolithiasis. 3. Acute renal failure, possibly prerenal acute tubular necrosis. 4. Mild thrombocytopenia. 5. Mild right hydronephrosis as well as non-obstructive right renal cyst on the CT scan. 6. Large posterior diaphragmatic hernia with multiple bowel loops on the CT scan. 7. History of chronic obstructive pulmonary disease. 8. Diabetes mellitus, type 2. 9. 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 10.Gastroesophageal reflux disease. 11.Hard of hearing. 12.Hypertension. 13.Hyperlipidemia. 14.History of prostate cancer and surgery. 15.History of degenerative joint disease. 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 17.Possible atelectasis of the lungs. RECOMMENDATIONS AND DISCUSSION: In this 74-year-old gentleman who presented with multiple complex medical issues, we will monitor the patient closely, continue the current medications, continue symptomatic treatment. We will closely monitor and follow with Surgery as well as Urology. The creatinine is 1.58. Will repeat labs. Continue IV fluids cautiously. Guarded prognosis because of multiple complex medical issues. Further recommendations to follow. MMODL / IJN: [id number] /
[2019-09-30] MEDS: SODIUM CHLORIDE 0.9% 1,000 ML IV SCH ×2 (02:23→12:09)
[2019-09-30] MEDS: METOCLOPRAMIDE 5 MG/ML 2 ML VIAL IVP SCH ×2 (05:24→12:09)
[2019-09-30 06:57] LABS: Glucose,Whole Blood 88 mg/dL (75-99)
[2019-09-30 07:14] VITALS: BP 138/71; PULSE 65; RESP 17; TEMP 98.5
--- NOTE | 2019-09-30 08:10 | P.PN ---
Progress Note - Text Progress Note Date: 09/30/19 Mr. Webb is feeling much better today. His pain has resolved and from my standpoint he may be discharged home. He will follow up with me in 3 weeks, at which time arrangements will be made for a renal ultrasound to confirm resolution of his hydronephrosis. He was instructed to contact me in the meantime if his pain recurs. Please notify me if I can be of any further assistance.
[2019-09-30] MEDS: HEPARIN SODIUM,PORCINE 5,000 UNIT/ML 1 ML VIAL SQ SCH (09:47)
[2019-09-30] MEDS: amLODIPine 5 MG TAB PO SCH (09:47)
[2019-09-30] MEDS: PANTOPRAZOLE 40 MG TABLET PO SCH (09:48)
[2019-09-30] MEDS: PIOGLITAZONE 15 MG TAB PO SCH (09:48)
[2019-09-30 12:02] LABS: Glucose,Whole Blood 91 mg/dL (75-99)
[2019-09-30] MEDS: MULTIVITAMINS, THERA 1 EACH TAB PO SCH (12:11)
[2019-09-30] MEDS ORDERED: INFLUENZA VACCINE (6 MOS+) 60 MCG/0.5 ML SYRINGE IM ONE (14:13)
[2019-09-30] MEDS ORDERED: PNEUMOCOCCAL VACC-PNEUMOVAX 23 25 MCG/0.5 ML VIAL IM ONE (14:13)
--- NOTE | 2019-10-02 13:41 | P.DS ---
Providers Date of admission: 09/26/19 17:31 Expected date of discharge: 09/30/19 Attending physician: Obed Ba Consults: 09/28/19 11:46 Consult Physician Urgent Consulting Provider: Yao Parikh Consult Reason/Comments: hydronephrosis Do you want consulting provider notified?: Yes 09/28/19 11:57 Consult Physician Urgent Consulting Provider: Blane Capps Consult Reason/Comments: NAUSEA/VOMITING Do you want consulting provider notified?: Yes Primary care physician: Lexi Blackwood Hospital Course: Final diagnosis Acute nausea and vomiting, possibly acute gastroenteritis back pain, possible urolithiasis acute renal failure, possible prerenal acute tubular necrosis mild thrombocytopenia mild right hydronephrosis as well as non-obstructive right renal cyst on the CT scan large posterior diaphragmatic hernia with multiple bowel loops on the CT scan history of COPD Diabetes mellitus, type 2 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 Blackwood in the outpatient setting upon discharge. Patient will also be following up with Dr. Parikh urology in 2-3 weeks as well. Total time taken is 35 minutes. History of present illness This is a 74 year-old male who was recently admitted for abdominal pain with significant nausea and vomiting and was being closely monitored. Patient was also found to have hydronephrosis with nephrolithiasis. Patient states that he feels that he passed some stones and will be sent home with a strainer and instructed to strain all urine. Patient will be following up with urology Dr. Parikh in the outpatient setting. Patient's abdominal pain along with vomiting has subsided and is tolerating diet. Currently patient denies any chest pain, shortness of breath, or palpitations. Patient is afebrile. Patient denies any nausea or vomiting and has been tolerating diet. Currently patients condition is stable and is ready for discharge today. On exam vital signs are stable. Temp is 98.5F, pulse is 65, resp are 17 , blood pressure is 138/71, and oxygen saturation is 92 % on room air. Cardio S1, S2 are muffled. Respiratory system shows diminished breath sounds at the bases with a few scattered rhonchi noted. Abdomen is soft and non-tender. Nervous system shows no focal deficits. Please refer to medication reconciliation sheet for a list of medications. Patient Condition at Discharge: Stable Plan - Discharge Summary Discharge Rx Participant: Yes New Discharge Prescriptions: Continue Hydrochlorothiazide 25 mg PO QAM Pioglitazone [Actos] 7.5 mg PO QAM Atorvastatin [Lipitor] 40 mg PO HS Omeprazole 20 mg PO W/SUPPER Losartan [Cozaar] 50 mg PO QAM Ferrous Sulfate [Iron] 325 mg PO HS rOPINIRole HCL 5 mg PO HS amLODIPine [Norvasc] 5 mg PO QAM 30 Days #30 tab EPINEPHrine (Auto Inject) [Epipen] 0.3 mg IM ONCE PRN PRN Reason: Anaphylaxis Multivitamins, Thera [Multivitamin (formulary)] 1 tab PO DAILY@1200 Discharge Medication List Atorvastatin [Lipitor] 40 mg PO HS 05/25/18 [History] Ferrous Sulfate [Iron] 325 mg PO HS 05/25/18 [History] Hydrochlorothiazide 25 mg PO QAM 05/25/18 [History] Losartan [Cozaar] 50 mg PO QAM 05/25/18 [History] Omeprazole 20 mg PO W/SUPPER 05/25/18 [History] Pioglitazone [Actos] 7.5 mg PO QAM 05/25/18 [History] rOPINIRole HCL 5 mg PO HS 09/14/18 [History] amLODIPine [Norvasc] 5 mg PO QAM 30 Days #30 tab 08/19/19 [Rx] EPINEPHrine (Auto Inject) [Epipen] 0.3 mg IM ONCE PRN 09/26/19 [History] Multivitamins, Thera [Multivitamin (formulary)] 1 tab PO DAILY@1200 09/26/19 [History] Follow up Appointment(s)/Referral(s): Yao Parikh MD [STAFF PHYSICIAN] - 10/21/19 8:20 am Lexi Blackwood MD [Primary Care Provider] - 1-2 days (office not answering Please call to make appointment) Ambulatory/Diagnostic Orders: Basic Metabolic Panel [LAB.AMB] Time Frame: 3 Days, Location: None Selected Patient Instructions/Handouts: Hydronephrosis (DC) Activity/Diet/Wound Care/Special Instructions: Activity Limited until follow-up Follow-up with primary care provider upon discharge Follow-up with urology Dr. Parikh 2-3 weeks Repeat labs in 2-3 days Continue current diet Discharge Disposition: HOME SELF-CARE
== END 2019-09-30 15:15 | disposition home or self-care (01) | DRG 683 ==
LOC: EC 14:42 → 4SSUR 17:31
PROVIDERS: ADMIT Hospitalist; ATTEND Hospitalist
DX: N17.0 Acute kidney failure with tubular necrosis (principal); J98.11 Atelectasis; K56.7 Ileus, unspecified; K52.9 Noninfective gastroenteritis and colitis, unspecified; N13.30 Unspecified hydronephrosis; D69.6 Thrombocytopenia, unspecified; E11.9 Type 2 diabetes mellitus without complications; E78.5 Hyperlipidemia, unspecified; E86.0 Dehydration; H91.90 Unspecified hearing loss, unspecified ear; I10 Essential (primary) hypertension; J44.9 Chronic obstructive pulmonary disease, unspecified; K21.9 Gastro-esophageal reflux disease without esophagitis; K44.9 Diaphragmatic hernia without obstruction or gangrene; N28.1 Cyst of kidney, acquired; M19.90 Unspecified osteoarthritis, unspecified site; N20.0 Calculus of kidney; Z79.84 Long term (current) use of oral hypoglycemic drugs; Z79.899 Other long term (current) drug therapy; Z91.030 Bee allergy status; Z91.040 Latex allergy status; Z97.4 Presence of external hearing-aid; Z85.819 Personal history of malignant neoplasm of unspecified site of lip, oral cavity, and pharynx; Z85.46 Personal history of malignant neoplasm of prostate; Z85.01 Personal history of malignant neoplasm of esophagus; Z98.42 Cataract extraction status, left eye; Z98.41 Cataract extraction status, right eye; Z96.1 Presence of intraocular lens; Z90.49 Acquired absence of other specified parts of digestive tract; Z80.9 Family history of malignant neoplasm, unspecified
CPT/HCPCS: 36415; 71045; 74019; 74176; 80048; 80053; 81001; 82150; 83690; 85025; 85610; 85652; 85730; 86140; 90686; 90732; 93005; 96361; 96372; 96374; 96375; 99285

== ENCOUNTER → 2021-02-15 | Outpatient (CLI) | payer MEDICARE, OTHER ==
--- NOTE | 2021-02-19 07:56 | PE ---
EXAMINATION TYPE: PET CT fusion skull to thigh DATE OF EXAM: 02/15/2021 COMPARISON: CT abdomen and pelvis September 26, 2019 and outside May 11, 2015 PET/CT HISTORY: Esophageal cancer originally diagnosed 2004, recurrent esophageal cancer on biopsy January 18 TECHNIQUE: Following the intravenous administration of 12.03 mCi of F-18 FDG, whole body images are performed from the skull base to the midthigh. Images are reviewed on the computer in the coronal, a xial, and sagittal planes. Reconstructed rotating images are created on independent workstation and reviewed on the computer. A localization and attenuation correction CT is performed in conjunction with the PET scan. Blood glucose level equals 87. SCAN: Initial Scan FINDINGS: SKULL BASE AND NECK: Mild hypermetabolic uptake surrounds right shoulder prosthesis suspicious for i nflammatory etiology, correlate clinically. CHEST, MEDIASTINUM, AND HILAR REGION: Surgical change from prior esophagectomy and gastric pull up pr ocedure is present. Near the proximal anastomosis there is slightly hypermetabolic enlarged 1.7 x 1.6 cm mediastinal lymph node axial image 57, max SUV is 2.37. No additional areas of abnormal hypermetabolic uptake or adenopathy. ABDOMEN AND PELVIS: Mild thickening or poor distention of distal stomach just below diaphragm. No abn ormal hypermetabolic uptake. Normal excretion. Nonspecific left anterior upper to mid bowel uptake. OSSEOUS STRUCTURES: No abnormal hypermetabolic uptake. OTHER CT: Enlarged right thyroid lobe with nodules. Correlate clinically and with prior ultrasound. Cardiomegaly with small pericardial effusion. Calcification at the level of the aortic valve. Moderat e three-vessel coronary artery calcification. Small pericardial effusion. Diverticula in the ethmoid colon. Left-sided pelvic phleboliths. Slight scoliotic curvature. IMPRESSION: Suspicious lymph node in the mediastinum near the proximal anastomosis. No metastatic dis ease otherwise identified.
== END | disposition home or self-care (01) ==
LOC: RADPETMAIN 17:33
PROVIDERS: ATTEND Internal Medicine Hematology & Oncology
DX: C15.8 Malignant neoplasm of overlapping sites of esophagus (principal)
CPT/HCPCS: 78815; A9552

== ENCOUNTER → 2021-06-04 | Outpatient (CLI) | payer MEDICARE, OTHER ==
[2021-06-04 15:34] LABS: African American GFR (CKD) >90 (>60 ml/min/1.73 sqM); Blood Urea Nitrogen 20 mg/dL (9-20); Non-African American GFR(CKD) 80 (>60 ml/min/1.73 sqM)
--- NOTE | 2021-06-05 10:08 | CT ---
EXAMINATION TYPE: CT ChestAbdPelvis wo/w con DATE OF EXAM: 06/04/2021 COMPARISON: PET/CT 02/15/2021 HISTORY: h/o esophagus CA, f/u CT DLP: 1803.3 mGycm Automated exposure control for dose reduction was used. CONTRAST: CT scan of the chest, abdomen and pelvis is performed with Oral Contrast and without and with IV Cont rast, patient injected with 100 mL of Isovue 300. FINDINGS: Postoperative changes are noted to the right shoulder, there is extensive streak artifact p resent at this level. Heterogeneous appearance to the thyroid is noted. LUNGS: The lungs are remarkable for some scarring at the right lung base, there is been interval surendra iation of lung between the ribs with some local scarring, calcified granuloma present in the posterio r lateral right lung base at this level There is no pleural effusion or pneumothorax seen. The trach eobronchial tree is patent. MEDIASTINUM: The superior mediastinal node adjacent to the right subclavian artery origin measures 9 mm in short axis, somewhat diminished as compared to previous exam. Patient is status post esophagect christopher with gastric pull-through. There is a pericardial effusion present which appears somewhat more co nspicuous than on prior exam now measuring approximately 1 cm in thickness anteriorly. Coronary arter y calcifications, calcification at the root of the aorta again noted, there is calcified right hilar nodes. Hiatal hernia is present containing loops of bowel similar to prior CT. There is left atrial e nlargement. AORTA: No significant abnormality is seen. OTHER: No additional significant abnormality is seen. LIVER/GB: There is some reflux of contrast into the hepatic veins. PANCREAS: No significant abnormality is seen. SPLEEN: Punctate calcification likely indicative of underlying old granulomatous disease.. ADRENALS: No significant abnormality is seen. KIDNEYS: Nonobstructing calculus present at the lower pole of the right kidney, upper pole of the lef t kidney and lower pole of left kidney noted, calcification in the lower pole of the right kidney was not seen on prior exam and measures approximately 5 mm, calcifications in the left kidney are smalle r. REPRODUCTIVE ORGANS: Prostate calcifications are present BOWEL: Colonic interposition noted anterior and lateral to the liver. Diverticular changes are assoc iated with the colon FREE AIR: No Free Air visible. ASCITES: None seen. RETROPERITONEAL ADENOPATHY: No retroperitoneal adenopathy is seen. LYMPH NODES: No greater than 1 cm abdominal or pelvic lymph nodes are appreciated. URINARY BLADDER: No significant abnormality is seen. PELVIC ADENOPATHY: None visualized. OSSEOUS STRUCTURES: Degenerative disc changes and facet arthropathy noted especially in the lower noel mbar spine. IMPRESSION: Posttreatment changes. There is progression in patient's pericardial effusion, reflux of contrast and blood into the hepatic veins could be indicative of some right heart failure. Interval i mprovement of the superior mediastinal node. Coronary artery calcification. Interval development of l liv herniation between the ribs 9 and 10 posterior laterally in the right.
== END | disposition home or self-care (01) ==
LOC: RADCTMAIN 13:57
PROVIDERS: ATTEND Radiology Radiation Oncology
DX: C15.5 Malignant neoplasm of lower third of esophagus (principal); I31.3 Pericardial effusion (noninflammatory); I25.10 Atherosclerotic heart disease of native coronary artery without angina pectoris; J44.9 Chronic obstructive pulmonary disease, unspecified; Z79.899 Other long term (current) drug therapy
CPT/HCPCS: 82565; 84520; 71270; 74178; 36415; Q9967

== ENCOUNTER 2021-10-04 10:10 | Emergency (ER) | payer MEDICARE, OTHER ==
[2021-10-04] MEDS ORDERED: MORPHINE SULFATE 4 MG/ML SYRINGE IV STA (10:17)
[2021-10-04] MEDS ORDERED: ONDANSETRON 4 MG/2 ML VIAL IVP STA (10:17)
[2021-10-04] MEDS ORDERED: SODIUM CHLORIDE 0.9% 1,000 ML IV STA (10:17)
[2021-10-04 10:18] VITALS: RESP 18
[2021-10-04] MEDS ORDERED: FAMOTIDINE 20 MG/2 ML VIAL IV STA (10:19)
--- NOTE | 2021-10-04 10:21 | ED ---
General Adult HPI - General Chief complaint: Abdominal Pain Stated complaint: Abd pain Time Seen by Provider: 10/04/21 10:12 Source: patient, EMS, RN notes reviewed Mode of arrival: EMS Limitations: no limitations - History of Present Illness Initial comments: Patient is a pleasant 76-year-old male presenting to the emergency department with complaints of left-sided abdominal discomfort. Onset of symptoms was yesterday late afternoon. Symptoms worsened throughout the night. Discomfort is left abdomen and somewhat the back. Patient does have history of similar symptoms previously associated with kidney stone. Patient has had nausea and vomited foam. No constipation or diarrhea. No fever. - Related Data Home Medications Medication Instructions Recorded Confirmed Losartan [Cozaar] 50 mg PO QAM 05/25/18 10/04/21 Omeprazole 20 mg PO W/SUPPER 05/25/18 10/04/21 Multivitamins, Thera [Multivitamin 1 tab PO DAILY@1200 09/26/19 10/04/21 (formulary)] Aspirin 81 mg PO QAM 10/04/21 10/04/21 Cholecalciferol [Vitamin D3 (25 25 mcg PO QAM 10/04/21 10/04/21 Mcg = 1000 Iu)] Cyanocobalamin (Vitamin B-12) 1,000 mcg PO QAM 10/04/21 10/04/21 [Vitamin B-12] Ferrous Sulfate [Feosol] 325 mg PO DAILY 10/04/21 10/04/21 Furosemide [Lasix] 20 mg PO QAM 10/04/21 10/04/21 Warfarin [Coumadin] 2.5 mg PO DIRECTED 10/04/21 10/04/21 carvediloL [Coreg] 6.25 mg PO QAM 10/04/21 10/04/21 ondansetron HCL [Zofran] 8 mg PO Q8HR PRN 10/04/21 10/04/21 Allergies Allergy/AdvReac Type Severity Reaction Status Date / Time bee venom protein (honey bee) Allergy Severe Anaphylaxis Verified 10/04/21 12:11 latex Allergy Unknown Rash/Hives Verified 10/04/21 12:11 adhesive tape Allergy Unknown-Per Verified 10/04/21 12:11 Dr Dickens's office Review of Systems ROS Statement: Those systems with pertinent positive or pertinent negative responses have been documented in the HPI. ROS Other: All systems not noted in ROS Statement are negative. Constitutional: Denies: fever Eyes: Denies: eye pain ENT: Denies: ear pain Respiratory: Denies: cough Cardiovascular: Denies: chest pain Endocrine: Denies: fatigue Gastrointestinal: Reports: as per HPI, abdominal pain, nausea, vomiting Genitourinary: Denies: dysuria Musculoskeletal: Reports: as per HPI Skin: Denies: rash Neurological: Denies: weakness Past Medical History Past Medical History: Cancer, COPD, Diabetes Mellitus, GERD/Reflux, Hearing Disorder / Deafness, Hyperlipidemia, Hypertension Additional Past Medical History / Comment(s): COPD WITH SOB (NO RX)-( [employer] FOR 45 YEARS), HX OF PROSTATE CANCER WITH SURGERY, HX OF THROAT CANCER WITH SURGERY (2016), LOW IRON. BILATERAL HEARING AIDS. History of Any Multi-Drug Resistant Organisms: None Reported Past Surgical History: Orthopedic Surgery, Prostate Surgery Additional Past Surgical History / Comment(s): RIGHT SHOULDER X2, EGD'S, COLONOSCOPIES, MICAH CATARACTS, PATIENT STATES ESOPHAGUS REMOVED AND STOMACH USED. Past Anesthesia/Blood Transfusion Reactions: No Reported Reaction Past Psychological History: No Psychological Hx Reported Smoking Status: Never smoker Past Alcohol Use History: None Reported Past Drug Use History: None Reported - Past Family History Sister(s) Family Medical History: Cancer Additional Family Medical History / Comment(s): AT 13 YRS OF AGE. General Exam Limitations: no limitations General appearance: alert, in no apparent distress Head exam: Present: normocephalic Eye exam: Present: normal appearance Neck exam: Present: normal inspection Respiratory exam: Present: normal lung sounds bilaterally Cardiovascular Exam: Present: regular rate, normal rhythm Expanded Peripheral pulses: 2+: Posterior Tibialis (R), Posterior Tibialis (L) GI/Abdominal exam: Present: soft, tenderness (Moderate tenderness left lower abdomen), normal bowel sounds. Absent: distended, guarding, rebound, rigid, pulsatile mass Extremities exam: Present: normal inspection Back exam: Present: CVA tenderness (L) (Below the left CVA) Neurological exam: Present: alert Psychiatric exam: Present: normal affect, normal mood Skin exam: Present: normal color Course Vital Signs 10/04/21 10/04/21 10:13 11:23 Temperature 98 F Pulse Rate 68 80 Respiratory 18 18 Rate Blood Pressure 178/118 159/108 O2 Sat by Pulse 98 98 Oximetry Medical Decision Making - Medical Decision Making Patient reevaluated and resting comfortable in bed. Patient updated on results and plan. Case was discussed in detail with Dr. Regalado who is comfortable with discharge of this patient and will follow-up with him in the office for potential gallbladder problems. - Lab Data Result diagrams: 10/04/21 10:20 10/04/21 10:20 Lab Results 10/04/21 10/04/21 10/04/21 Range/Units 10:20 10:20 10:20 WBC 6.0 (3.8-10.6) k/uL RBC 3.83 L (4.30-5.90) m/uL Hgb 13.2 (13.0-17.5) gm/dL Hct 40.5 (39.0-53.0) % MCV 105.7 H (80.0-100.0) fL MCH 34.5 (25.0-35.0) pg MCHC 32.7 (31.0-37.0) g/dL RDW 14.3 (11.5-15.5) % Plt Count 129 L (150-450) k/uL MPV 7.7 Neutrophils % 81 % Lymphocytes % 8 % Monocytes % 7 % Eosinophils % 3 % Basophils % 0 % Neutrophils # 4.8 (1.3-7.7) k/uL Lymphocytes # 0.5 L (1.0-4.8) k/uL Monocytes # 0.4 (0-1.0) k/uL Eosinophils # 0.2 (0-0.7) k/uL Basophils # 0.0 (0-0.2) k/uL Macrocytosis Moderate PT 18.8 H (9.0-12.0) sec INR 1.9 H (<1.2) APTT 27.6 (22.0-30.0) sec Sodium 140 (137-145) mmol/L Potassium 3.9 (3.5-5.1) mmol/L Chloride 110 H (98-107) mmol/L Carbon Dioxide 25 (22-30) mmol/L Anion Gap 5 mmol/L BUN 12 (9-20) mg/dL Creatinine 0.96 (0.66-1.25) mg/dL Est GFR (CKD-EPI)AfAm 90 (>60 ml/min/1.73 sqM) Est GFR (CKD-EPI)NonAf 78 (>60 ml/min/1.73 sqM) Glucose 129 H (74-99) mg/dL Calcium 9.2 (8.4-10.2) mg/dL Total Bilirubin 1.2 (0.2-1.3) mg/dL AST 33 (17-59) U/L ALT 29 (4-49) U/L Alkaline Phosphatase 75 (38-126) U/L Total Protein 6.7 (6.3-8.2) g/dL Albumin 3.8 (3.5-5.0) g/dL Amylase 44 (30-110) U/L Lipase 46 (23-300) U/L Urine Color Urine Appearance (Clear) Urine pH (5.0-8.0) Ur Specific [place] (1.001-1.035) Urine Protein (Negative) Urine Glucose (UA) (Negative) Urine Ketones (Negative) Urine Blood (Negative) Urine Nitrite (Negative) Urine Bilirubin (Negative) Urine Urobilinogen (<2.0) mg/dL Ur Leukocyte Esterase (Negative) Urine RBC (0-5) /hpf Urine WBC (0-5) /hpf Ur Squamous Epith Cells (0-4) /hpf Amorphous Sediment (None) /hpf Urine Mucus (None) /hpf 10/04/21 Range/Units 10:24 WBC (3.8-10.6) k/uL RBC (4.30-5.90) m/uL Hgb (13.0-17.5) gm/dL Hct (39.0-53.0) % MCV (80.0-100.0) fL MCH (25.0-35.0) pg MCHC (31.0-37.0) g/dL RDW (11.5-15.5) % Plt Count (150-450) k/uL MPV Neutrophils % % Lymphocytes % % Monocytes % % Eosinophils % % Basophils % % Neutrophils # (1.3-7.7) k/uL Lymphocytes # (1.0-4.8) k/uL Monocytes # (0-1.0) k/uL Eosinophils # (0-0.7) k/uL Basophils # (0-0.2) k/uL Macrocytosis PT (9.0-12.0) sec INR (<1.2) APTT (22.0-30.0) sec Sodium (137-145) mmol/L Potassium (3.5-5.1) mmol/L Chloride (98-107) mmol/L Carbon Dioxide (22-30) mmol/L Anion Gap mmol/L BUN (9-20) mg/dL Creatinine (0.66-1.25) mg/dL Est GFR (CKD-EPI)AfAm (>60 ml/min/1.73 sqM) Est GFR (CKD-EPI)NonAf (>60 ml/min/1.73 sqM) Glucose (74-99) mg/dL Calcium (8.4-10.2) mg/dL Total Bilirubin (0.2-1.3) mg/dL AST (17-59) U/L ALT (4-49) U/L Alkaline Phosphatase (38-126) U/L Total Protein (6.3-8.2) g/dL Albumin (3.5-5.0) g/dL Amylase (30-110) U/L Lipase (23-300) U/L Urine Color Yellow Urine Appearance Cloudy (Clear) Urine pH 6.5 (5.0-8.0) Ur Specific [place] 1.010 (1.001-1.035) Urine Protein 1+ H (Negative) Urine Glucose (UA) Negative (Negative) Urine Ketones Negative (Negative) Urine Blood Large H (Negative) Urine Nitrite Negative (Negative) Urine Bilirubin Negative (Negative) Urine Urobilinogen <2.0 (<2.0) mg/dL Ur Leukocyte Esterase Negative (Negative) Urine RBC 112 H (0-5) /hpf Urine WBC 2 (0-5) /hpf Ur Squamous Epith Cells <1 (0-4) /hpf Amorphous Sediment Rare H (None) /hpf Urine Mucus Occasional H (None) /hpf - Radiology Data Radiology results: report reviewed (Computed tomography scan of abdomen and pelvis does show left UVJ calculus with mild [place]. Appearance of. Cholecystic fluid. Ultrasound shows small amount of pericholecystic fluid. Wall 3 mL. No stones.) Disposition Clinical Impression: Kidney stone Disposition: HOME SELF-CARE Condition: Stable Instructions (If sedation given, give patient instructions): Kidney Stones (ED) Additional Instructions: Please do follow-up with primary care physician in the next couple days for recheck. Please also follow-up with surgeon on-call, number provided regarding potential gallbladder issues. 4 number also provided for urology regarding kidney stone. Return for increased pain, fever, vomiting, worsening symptoms or other concerns. Is patient prescribed a controlled substance at d/c from ED?: No Referrals: Lexi Blackwood MD [Primary Care Provider] - 1-2 days Summer Emerson MD [STAFF PHYSICIAN] - 1-2 days Yao Parikh MD [STAFF PHYSICIAN] - 1-2 days Time of Disposition: 14:29
[2021-10-04 10:28] LABS: Basophils % (A) 0 %; Eosinophils # (A) 0.2 k/uL (0-0.7); Eosinophils % (A) 3 %; HCT 40.5 % (39.0-53.0); HGB 13.2 gm/dL (13.0-17.5); Lymphocytes # (A) 0.5 k/uL (1.0-4.8); Lymphocytes % (A) 8 %; MCH 34.5 pg (25.0-35.0); MCHC 32.7 g/dL (31.0-37.0); MCV 105.7 fL (80.0-100.0); Macrocytosis Moderate; Mean Platelet Volume 7.7; Monocytes # (A) 0.4 k/uL (0-1.0); Monocytes % (A) 7 %; Neutrophils # (A) 4.8 k/uL (1.3-7.7); Neutrophils % (A) 81 %; Platelet Count 129 k/uL (150-450); RBC 3.83 m/uL (4.30-5.90); RDW 14.3 % (11.5-15.5)
[2021-10-04 10:40] LABS: INR 1.9 (<1.2); Partial Thromboplastin Time 27.6 sec (22.0-30.0); Prothrombin Time 18.8 sec (9.0-12.0)
[2021-10-04 10:50] LABS: Albumin 3.8 g/dL (3.5-5.0); Calcium 9.2 mg/dL (8.4-10.2); Potassium 3.9 mmol/L (3.5-5.1); Total Bilirubin 1.2 mg/dL (0.2-1.3); Total Protein 6.7 g/dL (6.3-8.2)
[2021-10-04 11:08] LABS: Amorphous Sediment,Urine Rare /hpf; Appearance,Urine Cloudy (Clear); Bilirubin,Urine Negative (Negative); Blood,Urine Large (Negative); Color,Urine Yellow; Glucose,Urine (UA) Negative (Negative); Ketones,Urine Negative (Negative); Leukocyte Esterase,Urine Negative (Negative); Mucus,Urine Occasional /hpf; Nitrite,Urine Negative (Negative); PH, Urine 6.5 (5.0-8.0); Protein,Urine 1+ (Negative); RBC,Urine 112 /hpf (0-5); Squamous Epithelial Cell,Urine <1 /hpf (0-4); Urobilinogen,Urine <2.0 mg/dL (<2.0); WBC,Urine 2 /hpf (0-5)
--- NOTE | 2021-10-04 11:08 | CT ---
EXAMINATION TYPE: CT abdomen pelvis wo con DATE OF EXAM: 10/04/2021 COMPARISON: 06/04/2021 HISTORY: Abdominal pain with history of renal stones CT DLP: 650 mGycm Automated exposure control for dose reduction was used. TECHNIQUE: Helical acquisition of images was performed from the lung bases through the pelvis. FINDINGS: LUNG BASES: Heart is enlarged and there is calcification aortic valve and moderate-sized pericardial effusion and coronary artery calcification. Findings suggest gastric pull-through procedure. Calcifie d granuloma right lower lobe. Subsegmental areas of atelectasis. LIVER/GB: There is increased fluid surrounding the gallbladder. Recommend ultrasound to assess perich olecystic fluid and possible cholecystitis. Hepatic granuloma. PANCREAS: No significant abnormality is seen. SPLEEN: Splenic granuloma noted. ADRENALS: No significant abnormality is seen. KIDNEYS: Mild left hydronephrosis and hydroureter. Approximately 4 left renal calculi all measuring 5 mm. There are 2 right renal calculi measuring less than 5 mm and there is a proximal right ureteral calculus measuring 3 mm. No significant hydronephrosis. There does appear to be a distal 1 to 2 mm le ft UVJ calculus likely resulting in the left-sided hydronephrosis. ADENOPATHY: None visualized. OSSEOUS STRUCTURES: Hypertrophic and degenerative changes spine.. BOWEL: Diverticulosis of the colon. OTHER: Aorta of normal caliber. IMPRESSION: 1. Bilateral nephrolithiasis and proximal right ureteral calculus with no hydronephrosis on the right . However, there is mild left hydronephrosis secondary to a 1 to 2 mm left UVJ calculus. 2. No gallstones. However, there appears to be pericholecystic fluid. Ultrasound is recommended to as sess for cholecystitis. Correlate clinically. 3. Postsurgical changes suggestive of gastric pull-through procedure. 4. Marked cardiomegaly with moderate pericardial effusion.
[2021-10-04] MEDS ORDERED: KETOROLAC 15 MG/ML 1 ML VIAL IVP STA (11:28)
--- NOTE | 2021-10-04 12:28 | US ---
EXAMINATION TYPE: US gallbladder DATE OF EXAM: 10/04/2021 COMPARISON: NONE CLINICAL HISTORY: Fluid on CT. abnormal CT. abdominal pain EXAM MEASUREMENTS: Liver Length: 15.2 cm Gallbladder Wall: 0.3 cm CBD: 0.2 cm Right Kidney: 10.5 x 4.8 x 5.2 cm Pancreas: Obscured by bowel gas Liver: appears wnl Gallbladder: small amount of pericholecystic fluid Evidence for sonographic Denson's sign: no CBD: appears wnl as visualized Right Kidney: possible small stones = 0.7cm IMPRESSION: 1. There is a small amount of pericholecystic fluid. Gallbladder wall measures at the upper limits of normal or 3 mm. no gallstones. HIDA scan could be performed as clinically warranted to assess for ac alculous cholecystitis. 2. Right-sided nephrolithiasis
[2021-10-04] MEDS ORDERED: ACET/COD 300 MG/30 MG STARTER PACK 6 TAB BTL PO STA (14:30)
[2021-10-04 14:48] VITALS: BP 147/78; PULSE 79; TEMP 98.3
== END 2021-10-04 14:56 | disposition home or self-care (01) ==
LOC: EC 10:10
DX: N13.2 Hydronephrosis with renal and ureteral calculous obstruction (principal); J44.9 Chronic obstructive pulmonary disease, unspecified; E11.9 Type 2 diabetes mellitus without complications; K21.9 Gastro-esophageal reflux disease without esophagitis; Z91.030 Bee allergy status; Z91.040 Latex allergy status; Z91.09 Other allergy status, other than to drugs and biological substances; Z79.899 Other long term (current) drug therapy; Z79.82 Long term (current) use of aspirin; Z79.01 Long term (current) use of anticoagulants
CPT/HCPCS: 36415; 80053; 82150; 83690; 85025; 85610; 85730; 81001; 76705; 74176; 99284; 96374; 96375; 96361; J2270; J2405; J1885

== ENCOUNTER → 2021-10-07 | Outpatient (CLI) | payer MEDICARE, OTHER ==
--- NOTE | 2021-10-07 12:10 | CT ---
EXAMINATION TYPE: CT chest wo/w con DATE OF EXAM: 10/07/2021 COMPARISON: CT dated 06/04/2021 HISTORY: Malignant neoplasm lower third of esophagus CT DLP: 811.0 mGycm Automated exposure control for dose reduction was used. TECHNIQUE: CT scan of the chest is performed without and with IV Contrast, patient injected with 100 mL of Isovu e 300. FINDINGS: Previous distal esophageal cancer resection and gastric pull-up surgery. The pulled up stomach is see n at the posterior aspect of the right lung with minimal surrounding fluid. No sizable collection or signs of perforation surrounding the pulled up stomach which appears fluid-filled. No mediastinal hem atoma or collection. Persistent cardiomegaly with progressive pericardial effusion measuring up to 2.6 cm at the posterior aspect of the heart compared to 1.5 cm previously. The injected contrast is seen within the soft tis sues of the right chest wall, possibly secondary to the pericardial effusion. Scattered arterial athe rosclerotic calcifications including coronary arterial calcifications. Slightly more prominent mediastinal lymph nodes. For example, an inferior left paratracheal aortopulm onary lymph node measures 10 mm compared to 6 mm previously. A right precarinal lymph node measures 8 mm compared to 6 negative previously. Attention follow-up. Alternatively, further PET scan assessmen t can be considered. No progressive hilar or axillary lymph nodes. Slightly larger right lung herniation between the poste rior aspects of the right ninth and 10th ribs, currently measuring 4.7 cm compared to 3.8 cm previous ly. Persistent atelectasis in the right lower lobe with peripheral reticulation and loss of volume. S maller atelectasis is seen in the left lung base. Persistent hiatal hernia containing portion of the transverse colon. No definite new lung lesion. Pat ent trachea and main bronchi. Minimal right pleural fluid. No left pleural effusion. Newly seen peric holecystic fluid, underlying acute cholecystitis cannot be excluded, please correlate clinically. Ost eopenia. No aggressive bone lesion. IMPRESSION: 1. Postsurgical changes as described above. No convincing evidence of local tumor recurrence. 2. Slightly more prominent few mediastinal lymph nodes as detailed above, attention follow-up. Altern atively, further PET scan assessment can be considered. 3. Progressive pericardial effusion as described above, please correlate with echocardiographic resul ts. 4. Newly seen pericholecystic fluid, please correlate clinically to rule out acute cholecystitis. Oth er interval changes and incidental findings as detailed above.
== END | disposition home or self-care (01) ==
LOC: RADCTMAIN 10:39
PROVIDERS: ATTEND Radiology Radiation Oncology
DX: C15.5 Malignant neoplasm of lower third of esophagus (principal)
CPT/HCPCS: 71270; Q9967

== ENCOUNTER 2021-10-17 07:45 | Day surgery (SDC) | payer MEDICARE, OTHER ==
--- NOTE | 2021-10-17 06:52 | P.GSHP ---
History of Present Illness H&P Date: 10/17/21 Chief Complaint: Right renal colic The patient is a 76-year-old white male with a history of urolithiasis. On 10/03/2021 he experienced acute onset of left renal colic. He was seen in the emergency room. Computed tomography scan showed mild left hydronephrosis due to a 2 mm left UVJ calculus. The computed tomography scan also showed a 4 x 6 mm right proximal ureteral calculus, with no right hydronephrosis. Tiny bilateral renal calculi were seen. He passed the left ureteral calculus on October 04, but continues to experience right flank pain. 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 "ENLARGED HEART VALVES" PER PATIENT. HX OF PROSTATE CANCER WITH SURGERY, HX OF THROAT CANCER WITH SURGERY (2016), LOW IRON. BILATERAL HEARING AIDS. History of Any Multi-Drug Resistant Organisms: None Reported Past Surgical History: Orthopedic Surgery, Prostate Surgery Additional Past Surgical History / Comment(s): RIGHT SHOULDER X2, EGD'S, COLONOSCOPIES, MICAH CATARACTS, PATIENT STATES ESOPHAGUS REMOVED AND STOMACH USED. Past Anesthesia/Blood Transfusion Reactions: No Reported Reaction Past Psychological History: No Psychological Hx Reported Smoking Status: Never smoker Past Alcohol Use History: None Reported Past Drug Use History: None Reported - Past Family History Sister(s) Family Medical History: Cancer Additional Family Medical History / Comment(s): AT 13 YRS OF AGE. Medications and Allergies Home Medications Medication Instructions Recorded Confirmed Type Losartan [Cozaar] 50 mg PO QAM 05/25/18 10/16/21 History Omeprazole 20 mg PO W/SUPPER 05/25/18 10/16/21 History Multivitamins, Thera [Multivitamin 1 tab PO DAILY@1200 09/26/19 10/16/21 History (formulary)] Aspirin 81 mg PO QAM 10/04/21 10/16/21 History Cholecalciferol [Vitamin D3 (25 25 mcg PO QAM 10/04/21 10/16/21 History Mcg = 1000 Iu)] Cyanocobalamin (Vitamin B-12) 1,000 mcg PO QAM 10/04/21 10/16/21 History [Vitamin B-12] Ferrous Sulfate [Feosol] 325 mg PO DAILY 10/04/21 10/16/21 History Warfarin [Coumadin] 2.5 mg PO DIRECTED 10/04/21 10/16/21 History carvediloL [Coreg] 6.25 mg PO QAM 10/04/21 10/16/21 History ondansetron HCL [Zofran] 8 mg PO Q8HR PRN 10/04/21 10/16/21 History Atorvastatin [Lipitor] 40 mg PO HS 10/16/21 10/16/21 History Allergies Allergy/AdvReac Type Severity Reaction Status Date / Time bee venom protein (honey bee) Allergy Severe Anaphylaxis Verified 10/04/21 12:11 latex Allergy Unknown Rash/Hives Verified 10/04/21 12:11 adhesive tape Allergy Unknown-Per Verified 10/04/21 12:11 Dr Dickens's office Surgical - Exam - General well developed, well nourished, no distress - Respiratory normal respiratory effort - Abdomen Abdomen: soft, non tender, no guarding, no rigid, no rebound - Genitourinary normal penis with no external lesions, testicles non-tender - Psychiatric oriented to time, oriented to person, oriented to place, speech is normal, albert ry intact Results - Imaging CT scan - abdomen: report reviewed, image reviewed Assessment and Plan (1) Calculus of ureter Status: Acute Code(s): N20.1 - CALCULUS OF URETER SNOMED Code(s): 57465041 Plan: I had a lengthy discussion with the patient and his . He was offered the options of medical expulsion therapy versus ureteroscopic removal of the right ureteral calculus. He was advised that the calculus has a greater than 50% chance of passing. He has elected to undergo surgery. Plan is to perform cystoscopy, right retrograde pyelogram, right ureteroscopy with Holmium laser lithotripsy and possible stone basketing, right ureteral stent insertion. The procedure has been reviewed in detail with the patient. He has been made aware of potential risks, which include anesthesia, bleeding, infection, ureteral injury, and inability to successfully remove the calculus.
--- NOTE | 2021-10-17 08:16 | XR ---
KUB HISTORY: Renal calculi Frontal KUB is correlated to CT scan 10/04/2021 Overlying bowel gas may obscure detail. Small calcification seen on prior CT the lower pole the left kidney not seen with certainty, proximal right ureteral calculus not seen with certainty. There is ov erlying artifact suspected. Phleboliths are noted within the pelvis. Distal left ureteral calculus se en on prior CT not seen definitively. Degenerative disc changes are present in the visualized spine. No evident pneumoperitoneum or bowel obstruction. IMPRESSION: Limitations as described.
[2021-10-17] MEDS ORDERED: LACTATED RINGERS 1,000 ML IV ONE ×2 (08:48→11:37)
[2021-10-17 08:59] LABS: Glucose,Whole Blood 100 mg/dL (75-99)
[2021-10-17] MEDS ORDERED: ONDANSETRON 4 MG/2 ML VIAL ONE (09:08)
[2021-10-17] MEDS ORDERED: ONDANSETRON 4 MG/2 ML VIAL IVP ONE ×2 (09:11→12:36)
[2021-10-17 09:25] LABS: INR 2.1 (<1.2); Prothrombin Time 21.1 sec (9.0-12.0)
[2021-10-17] MEDS ORDERED: NEOSTIGMINE 1 MG/ML 10 ML VIAL ONE (10:21)
[2021-10-17] MEDS ORDERED: fentaNYL (PF) 50 MCG/ML 2 ML AMP ONE (10:21)
[2021-10-17] MEDS ORDERED: ROCURONIUM 10 MG/ML (5 ML VIAL) IV ONE (10:21)
[2021-10-17] MEDS ORDERED: LIDOCAINE 1% INJ 10MG/ML (20 ML MDV) ONE (10:21)
[2021-10-17] MEDS ORDERED: SUCCINYLCHOLINE CHLORIDE 100 MG/5 ML SYR IV ONE (10:21)
[2021-10-17] MEDS ORDERED: PHENYLEPHRINE-0.9% NACL SYG 1,000 MCG/10 ML SYRINGE ONE (10:21)
[2021-10-17] MEDS ORDERED: GLYCOPYRROLATE 0.2 MG/ML 2 ML VIAL ONE (10:21)
[2021-10-17] MEDS ORDERED: PROPOFOL 10 MG/ML 20 ML VIAL IV ONE (10:21)
[2021-10-17] MEDS ORDERED: IOPAMIDOL-370 50ML BTL MISCELLANE ONE (10:47)
[2021-10-17 11:57] VITALS: TEMP 97.6
--- NOTE | 2021-10-17 12:00 | P.OP ---
Date of Procedure: 10/17/21 Preoperative Diagnosis: Right ureteral calculus, right renal calculi Postoperative Diagnosis: Right renal calculi Procedure(s) Performed: Cystoscopy, right retrograde pyelogram, right ureteroscopy with Holmium laser lithotripsy and stone basketing, right ureteral stent insertion Anesthesia: CHIP Surgeon: Yao Parikh Estimated Blood Loss (ml): 5 IV fluids (ml): 800 Pathology: other (Calculus fragment, sent for chemical analysis) Condition: stable Disposition: PACU Indications for Procedure: The patient is a 76-year-old white male with a history of urolithiasis. On 10/03/2021 he experienced acute onset of left renal colic. He was seen in the emergency room. Computed tomography scan showed mild left hydronephrosis due to a 2 mm left UVJ calculus. The computed tomography scan also showed a 4 x 6 mm right proximal ureteral calculus, with no right hydronephrosis. Tiny bilateral renal calculi were seen. He passed the left ureteral calculus on October 04, but continues to experience right flank pain. Operative Findings: Several right renal calculi measuring up to 5 mm in size. Description of Procedure: The patient was taken to the operating room and placed in the dorsolithotomy position, with legs supported in Justen stirrups. The external genitalia was prepped and draped sterilely. The 30 lens was used to introduce the 21-Congolese Warren cystoscopic sheath through the urethra and into the bladder under direct vision. The prostatic urethra showed evidence of mild lateral lobe enlargement. The bladder was examined in its entirety. Both ureteral orifices were normal anatomic location and configuration, and clear urine effluxed from both. No tumors or foreign bodies were seen. Using a 10-Congolese cone-tipped catheter, a right retrograde pyelogram was performed. The ureter appeared narrow in caliber, particularly distally. Within the proximal ureter was a persistent irregularity felt to possibly represent a ureteral calculus. A 0.038 inch Glidewire was passed through the cystoscope. The ureteral orifice was cannulated, and the Glidewire was advanced up to the renal pelvis. The Glidewire did not appear to meet any resistance in the area of irregularity. The cystoscope was removed, and an 11/13-Congolese ureteral access catheter was passed over the wire, up to the proximal ureter. The flexible ureteroscope was then passed through the ureteral access catheter sheath and advanced under direct vision. An area of narrowing was encountered within the proximal ureter, through which the ureteroscope could not be advanced. The Glidewire was passed through the ureteroscope, and the ureteroscope was then gently advanced over the wire, up to the right renal pelvis. Each calyx was examined. Within a mid pole calyx, a calculus was identified measuring approximately 4 x 6 mm in size. This may have been the calculus seen within the proximal ureter on computed tomography scan, perhaps having been dislodged by the retrograde pyelogram and Glidewire placement. In any case, the 272 micron Holmium laser probe was passed through the ureteroscope, and lithotripsy was performed. The calculus was fragmented completely using a dusting mode. Each calyx was then examined, and several additional smaller calculi were identified. These were fragmented. Within one calyx a calculus was identified but could not be fragmented due to its location. A 1.9-Congolese nitinol basket was used to grasp the calculus and remove it. It measured only 1 mm in size, and was sent for chemical analysis. Ureteroscopy was repeated, but all remaining calculus fragments were considerably smaller than the calculus which have been removed via Stone basketing. Pullout ureteroscopy was performed. There was no evidence of ureteral perforation, and no ureteral calculi were seen. The Glidewire was passed through the ureteroscope, and after removing the ureteroscope the Glidewire was backloaded into the cystoscope, which was replaced into the bladder. A 26 cm, 4.8-Congolese double-J ureteral stent was placed over the wire. Proper stent positioning was verified fluoroscopically and endoscopically. The bladder was emptied and the cystoscope removed. The patient tolerated the procedure well and was taken to the recovery room in stable condition. Gelesis Report: Procedure Acuity: Urgent Stone Size and Location: 4 x 6 mm, right mid pole calyx Ureteral Dilation: No Ureteral Access Sheath Used: Yes Stone Sent for Analysis: Yes All Stones/Fragments Were Removed with a Basket: No Complications: No Preoperative Antibiotics Given: Yes Stent Placed: Yes If Stent Placed, Was String Left Attached: No If Stent Placed, When is it to be Removed: 3 weeks Discharge Medications: Tamsulosin
[2021-10-17] MEDS ORDERED: hydrALAZINE HCL 20 MG/ML 1 ML VIAL IVP ONE ×2 (12:39→14:10)
--- NOTE | 2021-10-17 13:31 | FL ---
Fluoroscopy HISTORY: Right ureteral stone 1.07 minutes fluoroscopy time supplied to the referring clinician. 5 intraoperative C-arm images doc ument the procedure. See dictated report from urology.
[2021-10-17 13:43] VITALS: RESP 20
[2021-10-17] MEDS ORDERED: hydrALAZINE HCL 20 MG/ML 1 ML VIAL ONE (14:05)
[2021-10-17] MEDS ORDERED: DEXAMETHASONE SOD PHOSPHATE 10 MG/ML 1 ML VIAL IV ONE (14:11)
[2021-10-17 14:51] VITALS: BP 144/80; PULSE 80
== END 2021-10-17 15:14 | disposition home or self-care (01) ==
LOC: OR 07:45
PROVIDERS: ATTEND Urology
DX: N20.0 Calculus of kidney (principal); J44.9 Chronic obstructive pulmonary disease, unspecified; E11.9 Type 2 diabetes mellitus without complications; K21.9 Gastro-esophageal reflux disease without esophagitis; H91.90 Unspecified hearing loss, unspecified ear; I25.10 Atherosclerotic heart disease of native coronary artery without angina pectoris; E78.5 Hyperlipidemia, unspecified; I10 Essential (primary) hypertension; E61.1 Iron deficiency; Z85.46 Personal history of malignant neoplasm of prostate; Z85.21 Personal history of malignant neoplasm of larynx; Z87.442 Personal history of urinary calculi; Z80.9 Family history of malignant neoplasm, unspecified; Z79.01 Long term (current) use of anticoagulants; Z79.82 Long term (current) use of aspirin; Z79.899 Other long term (current) drug therapy; Z91.030 Bee allergy status; Z91.040 Latex allergy status; Z91.09 Other allergy status, other than to drugs and biological substances
CPT/HCPCS: 85610; 82365; 74420; 74018; 52356; C2625; C1758; C1769; J0360; J1100; J2710; J0690; J2405; J2001; J3010; J2370; J0330; J2704; Q9967; J1790

== ENCOUNTER → 2021-12-02 | Outpatient (CLI) | payer MEDICARE, OTHER ==
--- NOTE | 2021-12-03 08:33 | XR ---
EXAMINATION TYPE: XR KUB DATE OF EXAM: 12/02/2021 COMPARISON: 10/17/2021 HISTORY: Bilateral ureteral and renal calcifications TECHNIQUE: One view abdominal series FINDINGS: The osseous structures are intact. The bowel gas pattern is nonspecific. Arthropathy of the hips and degenerative change of the spine. Calcifications the pelvis are stable and likely vascular. Subsegme ntal changes at the right lung base with elevated right hemidiaphragm. Suspect a left-sided hiatal he rnia. IMPRESSION: 1. Nonspecific abdomen. There is a hiatal hernia which is been reported by previous CT scan. 2. Right lower lobe infiltrate and small effusion. 3. No definite calcifications overlying the visualized portion of the renal outlines. They are partia lly obscured by bowel content. Stable pelvic calcifications relative to prior exam stable.
== END | disposition home or self-care (01) ==
LOC: RADXRMAIN 16:55
PROVIDERS: ATTEND Urology
DX: N20.0 Calculus of kidney (principal); N20.1 Calculus of ureter; R91.8 Other nonspecific abnormal finding of lung field
CPT/HCPCS: 74018

== ENCOUNTER → 2021-12-02 | Outpatient (CLI) | payer MEDICARE, OTHER ==
--- NOTE | 2021-12-03 17:22 | US ---
EXAMINATION TYPE: US kidneys/renal and bladder DATE OF EXAM: 12/02/2021 COMPARISON: NONE CLINICAL HISTORY: N20.0 CALCULUS RT KIDNEY,N20.1 CALCULUS RT URETER. EXAM MEASUREMENTS: Right Kidney: 10.5 x 4.7 x 5.3 cm Left Kidney: 10.5 x 5.4 x 5.0 cm Right Kidney: No hydronephrosis. There is a 0.9 x 0.9 x 0.8 cm cyst at the inferior right kidney. Left Kidney: No hydronephrosis, partially obscured by overlying bowel gas Bladder: wnl IMPRESSION: 1. Simple appearing right renal cyst
== END | disposition home or self-care (01) ==
LOC: RADUSWWP 16:19
PROVIDERS: ATTEND Urology
DX: N28.1 Cyst of kidney, acquired (principal)
CPT/HCPCS: 76770

== ENCOUNTER → 2022-01-24 | Outpatient (CLI) | payer MEDICARE, OTHER ==
[2022-01-24 09:58] LABS: African American GFR (CKD) >90 (>60 ml/min/1.73 sqM); Blood Urea Nitrogen 19 mg/dL (9-20); Non-African American GFR(CKD) 85 (>60 ml/min/1.73 sqM)
--- NOTE | 2022-01-24 13:00 | CT ---
EXAMINATION TYPE: CT chest abdomen wo/w con DATE OF EXAM: 01/24/2022 COMPARISON: Chest 10/07/2021 and abdomen 10/04/2021. Also, 06/04/2021 HISTORY: 76-year-old male C15.5, Neoplasm of Esophagus. Status post surgery. Last chemotherapy and ra diation June 2021. TECHNIQUE: Contiguous axial scanning of the chest and abdomen following administration of 70 ml Isovu e 300 IV contrast. Delayed images through the kidneys and coronal/sagittal reconstructions performed . CT DLP: 1445.4 mGycm Automated exposure control for dose reduction was used. FINDINGS: CHEST: Heart upper limits of normal in size. Prominent aortic valvular calcifications. Moderate to large pericardial effusion measuring 2.4 cm thick relatively similar to prior exam. Aorta normal caliber with conventional arch vessel branching anatomy.. Large caliber to the main right and left pulmonary arteries measuring up to 3.0 cm suggesting underly ing pulmonary artery hypertension. Scattered nonenlarged mediastinal lymph nodes are overall stable or slightly smaller from prior exam. Particular note of the previous superior mediastinal lymph node adjacent to the upper anastomosis re raulito nonenlarged. No progressive thoracic lymphadenopathy. Post surgical change of esophagectomy and gastric pull-through procedure. Mild emphysematous change. Interstitial changes of the right greater than left lung bases suggesting scarring and atelectasis, probably some fibrosis as well. Old calcified granuloma at the right base. Unchanged mild intercostal herniation through the T9 intercostal space posterolaterally likely relati ng to thoracotomy change. No new consolidation or pleural effusion. Of note, there is persistent herniation of the transverse colon across the diaphragm into the lower c hest. No obstructive changes. ABDOMEN: No focal liver lesion. Portal venous system is patent. No biliary ductal dilatation. Gallbladder appearance is improved from prior. Stable 1.7 cm left adrenal nodule back to 06/04/2021 but not clearly seen previously that exam. A couple punctate 2 to 3 mm nonobstructive left renal calculi. 9 mm cortical hypodensity posterior lower pole right kidney too small fractured CT characterization, probable cyst. Calcified granuloma spleen. Pancreas shows no gross abnormality. Mild generalized anasarca change. No dilated small bowel, free fluid, or free air. No mesenteric or retroperitoneal lymphadenopathy see n. Left-sided colonic diverticulosis without pericolonic inflammatory change. BONES: Gastric disease. Moderate degenerative disc disease lumbar spine. [facility] mid to lower thoracic spine. D egenerative grade 1 retrolisthesis L3-L4. Hypertrophic facet arthropathy lumbar spine. No osseous angela tructive process seen. IMPRESSION: 1. STATUS POST ESOPHAGECTOMY WITH GASTRIC PULL-THROUGH PROCEDURE. STABLE OR SLIGHTLY SMALLER NONENLAR GED, BENIGN-APPEARING MEDIASTINAL LYMPH NODES. A 1.7 CM LEFT ADRENAL NODULE IS UNCHANGED BACK TO 05/17 BUT NOT CLEARLY SEEN PREVIOUS TO THAT EXAM. ONGOING FOLLOW-UP CLINICALLY INDICATED. OTHERWI SE, NO EVIDENCE FOR DISEASE PROGRESSION. 2. SIMILAR MODERATE TO LARGE PERICARDIAL EFFUSION MEASURING 2.4 CM THICK. 3. STABLE HERNIATION OF NONOBSTRUCTED TRANSVERSE COLON THROUGH THE DIAPHRAGMATIC HIATUS. STABLE MILD LUNG HERNIATION THROUGH THE RIGHT POSTEROLATERAL NINTH INTERCOSTAL SPACE PROBABLY RELATING TO PREVIOU S THORACOTOMY CHANGE. 4. INCIDENTAL PROMINENT AORTIC VALVULAR CALCIFICATIONS. CORRELATE CLINICALLY TO EXCLUDE ANY UNDERLYIN G AORTIC VALVE STENOSIS. 5. LEFT-SIDED CLONIC DIVERTICULOSIS WITHOUT ACUTE DIVERTICULITIS. MILD ANASARCA CHANGE. DISH.
== END | disposition home or self-care (01) ==
LOC: RADCTMAIN 09:03
PROVIDERS: ATTEND Radiology Radiation Oncology
DX: C15.5 Malignant neoplasm of lower third of esophagus (principal); J44.9 Chronic obstructive pulmonary disease, unspecified; Z92.21 Personal history of antineoplastic chemotherapy; Z79.899 Other long term (current) drug therapy
CPT/HCPCS: 82565; 84520; 71270; 74170; 36415; Q9967

== ENCOUNTER 2022-01-27 09:26 | Emergency (ER) | payer MEDICARE, OTHER ==
[2022-01-27 09:35] VITALS: BP 180/90; PULSE 90; RESP 18; TEMP 98
--- NOTE | 2022-01-27 10:32 | ED ---
General Adult HPI - General Chief complaint: Skin/Abscess/Foreign Body Stated complaint: hand bruising Time Seen by Provider: 01/27/22 10:28 Source: patient, RN notes reviewed Mode of arrival: ambulatory Limitations: no limitations - History of Present Illness Initial comments: Patient is a 76-year-old male presents to the emergency room with c omplaints of increased bruising to his right hand where he had inserted on Thursday (3 days ago). He noticed the start of bruising on Thursday evening with progressive expansion of the bruising over the last 48 hours. He denies any swelling, pain, range of motion impairment or pain during his CAT scan procedure. He denies any fevers or chills. He has an extensive past medical history significant for diabetes, hypertension, hyperlipidemia, prostate cancer, throat cancer, COPD, and GERD. Overall he is feeling well and denies any other complaints or concerns at this time. - Related Data Home Medications Medication Instructions Recorded Confirmed Losartan [Cozaar] 50 mg PO QAM 05/25/18 10/16/21 Omeprazole 20 mg PO W/SUPPER 05/25/18 10/16/21 Multivitamins, Thera [Multivitamin 1 tab PO DAILY@1200 09/26/19 10/16/21 (formulary)] Aspirin 81 mg PO QAM 10/04/21 10/16/21 Cholecalciferol [Vitamin D3 (25 25 mcg PO QAM 10/04/21 10/16/21 Mcg = 1000 Iu)] Cyanocobalamin (Vitamin B-12) 1,000 mcg PO QAM 10/04/21 10/16/21 [Vitamin B-12] Ferrous Sulfate [Feosol] 325 mg PO DAILY 10/04/21 10/16/21 Warfarin [Coumadin] 2.5 mg PO DIRECTED 10/04/21 10/16/21 carvediloL [Coreg] 6.25 mg PO QAM 10/04/21 10/16/21 ondansetron HCL [Zofran] 8 mg PO Q8HR PRN 10/04/21 10/16/21 Atorvastatin [Lipitor] 40 mg PO HS 10/16/21 10/16/21 Previous Rx's Medication Instructions Recorded Tamsulosin [Flomax] 0.4 mg PO DAILY #30 cap 10/17/21 Allergies Allergy/AdvReac Type Severity Reaction Status Date / Time bee venom protein (honey bee) Allergy Severe Anaphylaxis Verified 01/27/22 09:35 latex Allergy Unknown Rash/Hives Verified 01/27/22 09:35 adhesive tape Allergy Unknown-Per Verified 01/27/22 09:35 Dr Dickens's office Review of Systems ROS Statement: Those systems with pertinent positive or pertinent negative responses have been documented in the HPI. ROS Other: All systems not noted in ROS Statement are negative. 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 "ENLARGED HEART VALVES" PER PATIENT. HX OF PROSTATE CANCER WITH SURGERY, HX OF THROAT CANCER WITH SURGERY (2016), LOW IRON. BILATERAL HEARING AIDS. History of Any Multi-Drug Resistant Organisms: None Reported Past Surgical History: Orthopedic Surgery, Prostate Surgery Additional Past Surgical History / Comment(s): RIGHT SHOULDER X2, EGD'S, COLONOSCOPIES, MICAH CATARACTS, PATIENT STATES ESOPHAGUS REMOVED AND STOMACH USED. Past Anesthesia/Blood Transfusion Reactions: No Reported Reaction Past Psychological History: No Psychological Hx Reported Smoking Status: Never smoker Past Alcohol Use History: None Reported Past Drug Use History: None Reported - Past Family History Sister(s) Family Medical History: Cancer Additional Family Medical History / Comment(s): AT 13 YRS OF AGE. General Exam Limitations: no limitations General appearance: alert, in no apparent distress Head exam: Present: atraumatic, normocephalic, normal inspection Eye exam: Present: normal appearance, PERRL, EOMI. Absent: scleral icterus, conjunctival injection, periorbital swelling ENT exam: Present: normal exam, mucous membranes moist Neck exam: Present: normal inspection. Absent: tenderness, meningismus, lymphadenopathy Respiratory exam: Present: normal lung sounds bilaterally. Absent: respiratory distress, wheezes, rales, rhonchi, stridor Cardiovascular Exam: Present: regular rate, normal rhythm, normal heart sounds. Absent: systolic murmur, diastolic murmur, rubs, gallop, clicks GI/Abdominal exam: Present: soft, normal bowel sounds. Absent: distended, tenderness, guarding, rebound, rigid Right Hand Wrist exam: Present: full ROM, ecchymosis. Absent: tenderness, swelling, crepitus, erythema Neurological exam: Present: alert, oriented X3, CN II-XII intact Psychiatric exam: Present: normal affect, normal mood Skin exam: Present: warm, dry, intact, normal color, other (Ecchymosis as noted above). Absent: rash Course Vital Signs 01/27/22 09:31 Temperature 98.0 F Pulse Rate 90 Respiratory 18 Rate Blood Pressure 180/90 O2 Sat by Pulse 99 Oximetry Medical Decision Making - Medical Decision Making Due to IV contrast through her IV will check x-ray to hand to evaluate soft tissue and bony structure. Low probability of excavation. - Radiology Data Radiology results: report reviewed, image reviewed X-ray right hand complete shows severe degenerative changes with chronic bony collapse noted. Intercarpal joint space narrowing. The overlying soft tissue appears unremarkable. There is no acute fracture or dislocation seen. Disposition Clinical Impression: Traumatic ecchymosis of right hand Disposition: HOME SELF-CARE Condition: Good Instructions (If sedation given, give patient instructions): Ecchymosis (ED) Additional Instructions: Please return to the Emergency Department if symptoms worsen or any other concerns. Signs of excavation discussed and advice to return if symptoms occur. Is patient prescribed a controlled substance at d/c from ED?: No Referrals: Lexi Blackwood MD [Primary Care Provider] - 1-2 days Time of Disposition: 12:21
--- NOTE | 2022-01-27 11:07 | XR ---
EXAMINATION TYPE: XR hand complete RT DATE OF EXAM: 01/27/2022 CLINICAL HISTORY: pain TECHNIQUE: Frontal, lateral and oblique images of the right wrist are obtained. COMPARISON: None. FINDINGS: There is no acute fracture/dislocation evident. Severe degenerative change involving the first carpal metacarpal joint space with chronic bony collapse noted. Intercarpal joint space narrowing. The over lying soft tissue appears unremarkable. IMPRESSION: There is no acute fracture or dislocation seen. ICD 10 NO FRACTURE, INITIAL EVALUATION
== END 2022-01-27 12:28 | disposition home or self-care (01) ==
LOC: EC 09:26
DX: S60.221A Contusion of right hand, initial encounter (principal); J44.9 Chronic obstructive pulmonary disease, unspecified; E11.9 Type 2 diabetes mellitus without complications; K21.9 Gastro-esophageal reflux disease without esophagitis; Z79.83 Long term (current) use of bisphosphonates; Z91.040 Latex allergy status; Z91.048 Other nonmedicinal substance allergy status; Z91.030 Bee allergy status; X58.XXXA Exposure to other specified factors, initial encounter
CPT/HCPCS: 99283

== ENCOUNTER 2022-07-04 08:21 | Day surgery (SDC) | payer MEDICARE, OTHER ==
[2022-07-03 08:59] VITALS: BMI 29.7
[2022-07-04 09:02] LABS: Glucose,Whole Blood 105 mg/dL (70-110)
[2022-07-04 09:05] VITALS: RESP 16; TEMP 98
[2022-07-04] MEDS ORDERED: hydrALAZINE HCL 20 MG/ML 1 ML VIAL IVP ONE (09:13)
[2022-07-04] MEDS ORDERED: LIDOCAINE 2% INJ 20 MG/ML (2 ML VIAL) ONE (09:29)
[2022-07-04] MEDS ORDERED: PROPOFOL 10 MG/ML 20 ML VIAL IV ONE (09:29)
--- NOTE | 2022-07-04 09:43 | P.PCN ---
Date of Procedure: 07/04/22 Procedure(s) Performed: BRIEF HISTORY: Patient is a 77-year-old, pleasant, white male scheduled for an upper endoscopy as a part of follow-up of esophageal cancer diagnosed in 2014. He is status post chemoradiation followed by distal esophagectomy and gastric pull-through. Last EGD was 4 years ago.. PROCEDURE PERFORMED: Esophagogastroduodenoscopy. PREOPERATIVE DIAGNOSIS: Follow-up esophageal cancer diagnosed in 2014.. IV sedation per anesthesia. PROCEDURE: After informed consent was obtained, the patient was brought into the endoscopy unit. IV sedation was administered by Anesthesia under continuous monitoring. Initially the Olympus GIF-140 video endoscope was inserted into the mouth. Esophagus intubated without any difficulty. It was gradually advanced into the stomach and duodenum and carefully examined. The bulb and the second part of the duodenum appeared normal. The scope at this time was withdrawn to the stomach, adequately insufflated with air, and upon careful examination, mucosa of the antrum, body, cardia and the fundus appeared normal. There was evidence of distal esophagectomy with gastric pull-through noted. The gastroesophageal anastomosis was located at 22 cm from the incisors there appeared widely patent and normal. No evidence of recurrent naproxen noted. T he proximal esophagus appeared normal and the patient tolerated the procedure well. IMPRESSION: 1. Normal gastric esophageal anastomosis was located at 22 cm from the incisors and appeared widely patent. 2. Evidence of distal esophagectomy with gastric pull-through that appeared normal. RECOMMENDATIONS: The findings of this examination were discussed with the patient is well as his family. He was advised to have a repeat EGD in 3 years..
[2022-07-04 10:10] VITALS: BP 141/85; PULSE 82
== END 2022-07-04 10:24 | disposition home or self-care (01) ==
LOC: ORWHC2ENDO 08:21
PROVIDERS: ATTEND Internal Medicine Gastroenterology
DX: Z85.01 Personal history of malignant neoplasm of esophagus (principal); Z92.21 Personal history of antineoplastic chemotherapy; Z92.3 Personal history of irradiation
CPT/HCPCS: 43235; J0360; J2704; J2001

== ENCOUNTER → 2022-07-23 | Outpatient (CLI) | payer MEDICARE, OTHER ==
[2022-07-23 12:48] LABS: African American GFR (CKD) >90 (>60 ml/min/1.73 sqM); Blood Urea Nitrogen 19 mg/dL (9-20); Non-African American GFR(CKD) 82 (>60 ml/min/1.73 sqM)
--- NOTE | 2022-07-23 14:06 | CT ---
EXAMINATION TYPE: CT chest w con DATE OF EXAM: 07/23/2022 COMPARISON: Most recent CT January 24, 2022 and older CTs. HISTORY: Malignant neoplasm of Esophagus CT DLP: 384.30 mGycm. Automated Exposure Control for Dose Reduction was Utilized. TECHNIQUE: CT scan of the thorax is performed following with IV Contrast, patient injected with 70 m L of Isovue 300. FINDINGS: LUNGS: Slight focal lung herniation posterior lateral right lower lung axial image 48 is redemonstrat ed. There is stable 6 mm calcified nodule or benign granuloma right lower lobe axial image 47. Mild r ight lower lung linear scarring and/or atelectasis redemonstrated. No new greater than 5 mm noncalci fied pulmonary nodules or masses. There is no pleural effusion or pneumothorax seen. The tracheobron chial tree is patent. MEDIASTINUM: Surgical changes from total esophagectomy and gastric pull up procedure redemonstrated. Heterogeneous nodular right thyroid gland again seen. No new greater than 1 cm thoracic lymph nodes m oderate size pericardial effusion remains present. Mild cardiomegaly with prominent calcification at level of the aortic valve is again seen. Moderate by a triple dilatation redemonstrated. Coronary art karla calcification is again seen. OTHER: Bridging osteophytes in the thoracic spine are redemonstrated. Surgical change to the right sh oulder causing streak artifact is again seen. Stable 1.8 cm low dense prominence or mass to the left adrenal gland axial image 65. There are a few tiny nonobstructing calculi throughout the left kidney redemonstrated. IMPRESSION: Posttreatment changes redemonstrated. No new mass or adenopathy noted. Stable moderate-si zed pericardial effusion is present.
== END | disposition home or self-care (01) ==
LOC: RADCTMAIN 11:42
PROVIDERS: ATTEND Radiology Radiation Oncology
DX: C15.5 Malignant neoplasm of lower third of esophagus (principal); J44.9 Chronic obstructive pulmonary disease, unspecified; I31.39 Other pericardial effusion (noninflammatory); Z79.899 Other long term (current) drug therapy; Z92.21 Personal history of antineoplastic chemotherapy
CPT/HCPCS: 82565; 84520; 71260; 36415; Q9967

== ENCOUNTER 2022-11-25 14:08 | Emergency (ER) | payer MEDICARE, OTHER ==
[2022-11-25] MEDS ORDERED: ONDANSETRON 4 MG/2 ML VIAL IVP STA (15:18)
[2022-11-25] MEDS ORDERED: PANTOPRAZOLE 40 MG/10 ML VIAL IVP STA (15:18)
[2022-11-25] MEDS ORDERED: SODIUM CHLORIDE 0.9% 1,000 ML IV STA ×2 (15:18)
--- NOTE | 2022-11-25 15:18 | ED ---
Nausea/Vomiting/Diarrhea HPI - General Chief complaint: Abdominal Pain Stated complaint: Diarrhea Time Seen by Provider: 11/25/22 15:18 Source: patient, old records reviewed Mode of arrival: ambulatory Limitations: no limitations - History of Present Illness Initial comments: This is a 77-year-old male to the ER for evaluation patient presents today for evaluation diarrhea: Left lower quadrant abdominal pain. Patient given medical history esophageal surgical history. Patient has left lower quadrant abdominal pain and persistent abdominal pain with diminished appetite diarrhea, no blood in the stool, no fevers. Otherwise no travel history no sick contacts again does have a complicated surgical history as prior stated MD complaint: diarrhea -: days(s) (4) Description of Vomiting: watery, bilious Description of Diarrhea: mucous Location: LLQ Radiation: none Severity: moderate Severity scale (1-10): 4 Quality: cramping, aching Consistency: intermittent Improves with: none Worsens with: none Associated Symptoms: loss of appetite, nausea/vomiting, weakness - Related Data Home Medications Medication Instructions Recorded Confirmed Losartan [Cozaar] 50 mg PO BID 05/25/18 11/25/22 Omeprazole 20 mg PO W/SUPPER 05/25/18 11/25/22 Multivitamins, Thera [Multivitamin 1 tab PO DAILY@1200 09/26/19 11/25/22 (formulary)] Aspirin 81 mg PO HS 10/04/21 11/25/22 Cholecalciferol [Vitamin D3 (25 25 mcg PO DAILY 10/04/21 11/25/22 Mcg = 1000 Iu)] Cyanocobalamin (Vitamin B-12) 1,000 mcg PO DAILY 10/04/21 11/25/22 [Vitamin B-12] Ferrous Sulfate [Feosol] 325 mg PO BID@1700,2100 10/04/21 11/25/22 Warfarin [Coumadin] 7.5 mg PO SUMOWEFRSA 10/04/21 11/25/22 carvediloL [Coreg] 6.25 mg PO BID-W/MEALS 10/04/21 11/25/22 Pioglitazone [Actos] 15 mg PO DAILY 07/03/22 11/25/22 rOPINIRole HCL [Requip] 0.5 mg PO HS 07/03/22 11/25/22 Atorvastatin [Lipitor] 40 mg PO W/SUPPER 11/25/22 11/25/22 Carboxymethylcellulose Sodium 1 dropper LEFT EYE DAILY 11/25/22 11/25/22 [Thera Tears] Cetirizine HCl [Zyrtec] 10 mg PO DAILY 11/25/22 11/25/22 Latanoprost/Pf [Latanoprost 0.005% 1 drop RIGHT EYE HS 11/25/22 11/25/22 Eye Drop] Warfarin [Coumadin] 5 mg PO TUTH 11/25/22 11/25/22 Allergies Allergy/AdvReac Type Severity Reaction Status Date / Time bee venom protein (honey bee) Allergy Severe Anaphylaxis Verified 11/25/22 18:01 latex Allergy Unknown Rash/Hives Verified 11/25/22 18:01 adhesive tape Allergy Unknown-Per Verified 11/25/22 18:01 Dr Dickens's office Review of Systems ROS Statement: Those systems with pertinent positive or pertinent negative responses have been documented in the HPI. ROS Other: All systems not noted in ROS Statement are negative. 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 "ENLARGED HEART VALVES" PER PATIENT. HX OF PROSTATE CANCER WITH SURGERY, HX OF THROAT CANCER WITH SURGERY (2016), LOW IRON. BILATERAL HEARING AIDS. History of Any Multi-Drug Resistant Organisms: None Reported Past Surgical History: Orthopedic Surgery, Prostate Surgery Additional Past Surgical History / Comment(s): RIGHT SHOULDER X2, EGD'S, COLONOSCOPIES, MICAH CATARACTS, PATIENT STATES ESOPHAGUS REMOVED AND STOMACH USED. PROSTATE SX FOR CANCER Past Anesthesia/Blood Transfusion Reactions: No Reported Reaction Past Psychological History: No Psychological Hx Reported Smoking Status: Never smoker Past Alcohol Use History: None Reported Past Drug Use History: None Reported - Past Family History Sister(s) Family Medical History: Cancer Additional Family Medical History / Comment(s): AT 13 YRS OF AGE. General Exam Limitations: no limitations General appearance: alert, in no apparent distress Head exam: Present: atraumatic, normocephalic, normal inspection Eye exam: Present: normal appearance, PERRL, EOMI. Absent: scleral icterus, conjunctival injection, periorbital swelling ENT exam: Present: normal exam, mucous membranes moist Neck exam: Present: normal inspection. Absent: tenderness, meningismus, lymphadenopathy Respiratory exam: Present: normal lung sounds bilaterally. Absent: respiratory distress, wheezes, rales, rhonchi, stridor Cardiovascular Exam: Present: regular rate, normal rhythm, normal heart sounds. Absent: systolic murmur, diastolic murmur, rubs, gallop, clicks GI/Abdominal exam: Present: distended, tenderness, guarding, rebound, normal bowel sounds. Absent: rigid Extremities exam: Present: normal inspection, full ROM, normal capillary refill. Absent: tenderness, pedal edema, joint swelling, calf tenderness Back exam: Present: normal inspection Neurological exam: Present: alert, oriented X3, CN II-XII intact Psychiatric exam: Present: normal affect, normal mood Skin exam: Present: warm, dry, intact, normal color. Absent: rash Course Vital Signs 11/25/22 11/25/22 11/25/22 14:11 15:16 15:20 Temperature 97.9 F Pulse Rate 75 Respiratory 18 Rate Blood Pressure 151/93 155/93 155/93 O2 Sat by Pulse 99 Oximetry 11/25/22 11/25/22 11/25/22 15:21 15:30 15:40 Temperature 98.4 F Pulse Rate 77 Respiratory 16 Rate Blood Pressure 155/93 155/93 143/103 O2 Sat by Pulse 96 96 95 Oximetry 11/25/22 11/25/22 11/25/22 15:50 16:00 16:10 Temperature Pulse Rate 77 Respiratory 20 Rate Blood Pressure 143/103 143/103 149/105 O2 Sat by Pulse 96 96 Oximetry 11/25/22 11/25/22 11/25/22 16:20 16:30 16:40 Temperature Pulse Rate Respiratory Rate Blood Pressure 149/105 149/105 138/93 O2 Sat by Pulse 97 97 Oximetry 11/25/22 11/25/22 11/25/22 16:50 17:00 17:10 Temperature Pulse Rate 80 Respiratory 20 Rate Blood Pressure 138/93 138/93 135/97 O2 Sat by Pulse 96 96 95 Oximetry 11/25/22 11/25/22 11/25/22 17:20 17:30 17:40 Temperature Pulse Rate Respiratory Rate Blood Pressure 135/97 135/97 140/81 O2 Sat by Pulse 96 95 95 Oximetry 11/25/22 11/25/22 11/25/22 17:50 18:00 18:10 Temperature Pulse Rate 82 Respiratory 16 Rate Blood Pressure 140/81 140/81 148/92 O2 Sat by Pulse 96 96 95 Oximetry 11/25/22 11/25/22 11/25/22 18:20 18:30 19:00 Temperature Pulse Rate 70 Respiratory 20 Rate Blood Pressure 148/92 148/92 141/75 O2 Sat by Pulse 94 L 95 95 Oximetry 11/25/22 11/25/22 21:00 21:49 Temperature 98.6 F Pulse Rate 77 70 Respiratory 16 20 Rate Blood Pressure 133/94 153/100 O2 Sat by Pulse 94 L 95 Oximetry - Reevaluation(s) Reevaluation #1: 11/25/22 19:14 Medical record is reviewed Reevaluation #2: 11/25/22 19:14 Patient has improved pain control Reevaluation #3: 11/25/22 19:14 patient informed results and questions answered Reevaluation #4: 11/25/22 19:15 Was pt. sent in by a medical professional or institution? @ -no Did you speak to anyone other than the patient for history? @ -family Did you review nursing and triage notes? @ -agree Were old charts reviewed? @ -no Differential Diagnosis? @ -abdominal pain EKG interpreted by me (3pts min.)? @ -yes X-rays interpreted by me (1pt min.)? @ -non CT interpreted by me (1pt min.)? @ -no U/S interpreted by me (1pt. min.)? @ -no What testing was considered but not performed? (CT, X-rays, U/S, labs)? Why? @ no What meds were considered but not given? Why? @ -no Did you discuss the management of the patient with other professionals? 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 @ -no Was smoking cessation discussed for >3mins.? @ -no Was critical care preformed (if so, how long)? @ -no Were there social determinants of health that impacted care today? How? (Homelessness, low income, unemployed, alcoholism, drug addiction, transportation, low edu. Level, literacy, decrease access to med. care, nursing home, rehab)? @ -no Was there de-escalation of care discussed even if they declined? (Discuss DNR or withdrawal of care, Hospice)? @ -no What co-morbidities impacted this encounter? (DM, HTN, Smoking, COPD, CAD, Cancer, CVA, Hep., AIDS, mental health diagnosis, sleep apnea, morbid obesity)? @ -no Was patient admitted / discharged? @ -transfer Undiagnosed new problem with uncertain prognosis? @ -no Drug Therapy requiring intensive monitoring for toxicity (Heparin, Nitro, Insulin, Cardizem)? @ -no Were any procedures done? @ -no Diagnosis/symptom? @ -diaphragmatis post op hernia Acute, or Chronic, or Acute on Chronic? @ -colitis, acute on chronic Uncomplicated (without systemic symptoms) or Complicated (systemic symptoms)? @ -complicated Side effects of treatment? @ -no Exacerbation, Progression, or Severe Exacerbation] @ -no Poses a threat to life or bodily function? @ -no Reevaluation #5: 11/25/22 19:15 Differential Abdominal Pain Women: Appendicitis, Cholecystitis, diverticulosis, ischemic bowel, pancreatitis, hepatitis, UTI, gastroenteritis, AAA, incarcerated hernia, bowel obstruction, constipation, inflammatory bowel, hepatitis, peptic ulcer disease, splenic infarction, perforated viscus, vulvitis, ovarian torsion, PID, kidney stone, placenta abruption, this is not meant to be an all-inclusive list - Consultations Consultation #1: Focused on-call surgery here at the hospital who recommends transfer to patient's prior surgical care I did speak with Dr. Garcia excessive patient has a transfer patient I did speak with [facility] emergency department who also except patient transferred Medical Decision Making - Medical Decision Making 77 male DF for evaluation of diaphragmatic hernia likely incisional hernia from prior esophageal surgery patient does have large bowel which is herniated into mediastinum as well as colitis, patient will be transferred to care of prior surgical elastic knitter hand frame, Dr. Garcia - Lab Data Result diagrams: 11/25/22 15:18 11/25/22 15:18 Lab Results 11/25/22 11/25/22 11/25/22 Range/Units 15:18 15:18 15:18 WBC 3.6 L (3.8-10.6) k/uL RBC 4.48 (4.30-5.90) m/uL Hgb 15.1 (13.0-17.5) gm/dL Hct 45.4 (39.0-53.0) % MCV 101.3 H (80.0-100.0) fL MCH 33.7 (25.0-35.0) pg MCHC 33.3 (31.0-37.0) g/dL RDW 13.3 (11.5-15.5) % Plt Count 123 L (150-450) k/uL MPV 7.3 Neutrophils % 67 % Lymphocytes % 13 % Monocytes % 13 % Eosinophils % 5 % Basophils % 1 % Neutrophils # 2.4 (1.3-7.7) k/uL Lymphocytes # 0.5 L (1.0-4.8) k/uL Monocytes # 0.5 (0-1.0) k/uL Eosinophils # 0.2 (0-0.7) k/uL Basophils # 0.0 (0-0.2) k/uL Macrocytosis Slight PT (9.0-12.0) sec INR (<1.2) APTT (22.0-30.0) sec Sodium 141 (137-145) mmol/L Potassium 3.5 (3.5-5.1) mmol/L Chloride 109 H (98-107) mmol/L Carbon Dioxide 27 (22-30) mmol/L Anion Gap 5 mmol/L BUN 14 (9-20) mg/dL Creatinine 0.95 (0.66-1.25) mg/dL Est GFR (CKD-EPI)AfAm >90 (>60 ml/min/1.73 sqM) Est GFR (CKD-EPI)NonAf 78 (>60 ml/min/1.73 sqM) Glucose 117 H (74-99) mg/dL Plasma Lactic Acid Arturo 1.5 (0.7-2.0) mmol/L Calcium 8.7 (8.4-10.2) mg/dL Total Bilirubin 1.1 (0.2-1.3) mg/dL AST 36 (17-59) U/L ALT 29 (4-49) U/L Alkaline Phosphatase 86 (38-126) U/L Troponin I (0.000-0.034) ng/mL Total Protein 7.5 (6.3-8.2) g/dL Albumin 4.0 (3.5-5.0) g/dL Amylase 43 (30-110) U/L Lipase 43 (23-300) U/L 11/25/22 11/25/22 Range/Units 15:18 15:36 WBC (3.8-10.6) k/uL RBC (4.30-5.90) m/uL Hgb (13.0-17.5) gm/dL Hct (39.0-53.0) % MCV (80.0-100.0) fL MCH (25.0-35.0) pg MCHC (31.0-37.0) g/dL RDW (11.5-15.5) % Plt Count (150-450) k/uL MPV Neutrophils % % Lymphocytes % % Monocytes % % Eosinophils % % Basophils % % Neutrophils # (1.3-7.7) k/uL Lymphocytes # (1.0-4.8) k/uL Monocytes # (0-1.0) k/uL Eosinophils # (0-0.7) k/uL Basophils # (0-0.2) k/uL Macrocytosis PT 31.4 H (9.0-12.0) sec INR 3.2 H (<1.2) APTT 33.7 H (22.0-30.0) sec Sodium (137-145) mmol/L Potassium (3.5-5.1) mmol/L Chloride (98-107) mmol/L Carbon Dioxide (22-30) mmol/L Anion Gap mmol/L BUN (9-20) mg/dL Creatinine (0.66-1.25) mg/dL Est GFR (CKD-EPI)AfAm (>60 ml/min/1.73 sqM) Est GFR (CKD-EPI)NonAf (>60 ml/min/1.73 sqM) Glucose (74-99) mg/dL Plasma Lactic Acid Arturo (0.7-2.0) mmol/L Calcium (8.4-10.2) mg/dL Total Bilirubin (0.2-1.3) mg/dL AST (17-59) U/L ALT (4-49) U/L Alkaline Phosphatase (38-126) U/L Troponin I <0.012 (0.000-0.034) ng/mL Total Protein (6.3-8.2) g/dL Albumin (3.5-5.0) g/dL Amylase (30-110) U/L Lipase (23-300) U/L - Radiology Data Radiology results: report reviewed (CT Head and pelvis positive for diaphragmatic hernia mediastinal large: Hernia with colitis distal), image reviewed Disposition Clinical Impression: Nausea & vomiting, Abdominal pain, Colitis, Diaphragmatic hernia Disposition: OTHER INSTITUTION NOT DEFINED Condition: Serious Is patient prescribed a controlled substance at d/c from ED?: No Referrals: Lexi Blackwood MD [Primary Care Provider] - 1-2 days Time of Disposition: 22:10 - Out of Hospital Transfer - Req. Specs Out of Hospital Transfer - Requested Specifics: Other Emergency Center ([facility])
[2022-11-25 16:00] LABS: Basophils % (A) 1 %; Eosinophils # (A) 0.2 k/uL (0-0.7); Eosinophils % (A) 5 %; HCT 45.4 % (39.0-53.0); HGB 15.1 gm/dL (13.0-17.5); Lymphocytes # (A) 0.5 k/uL (1.0-4.8); Lymphocytes % (A) 13 %; MCH 33.7 pg (25.0-35.0); MCHC 33.3 g/dL (31.0-37.0); MCV 101.3 fL (80.0-100.0); Macrocytosis Slight; Mean Platelet Volume 7.3; Monocytes # (A) 0.5 k/uL (0-1.0); Monocytes % (A) 13 %; Neutrophils # (A) 2.4 k/uL (1.3-7.7); Neutrophils % (A) 67 %; Platelet Count 123 k/uL (150-450); RBC 4.48 m/uL (4.30-5.90); RDW 13.3 % (11.5-15.5); WBC 3.6 k/uL (3.8-10.6)
[2022-11-25] MEDS ORDERED: MORPHINE SULFATE 2 MG/ML SYRINGE IVP STA (16:03)
[2022-11-25 16:12] LABS: INR 3.2 (<1.2); Partial Thromboplastin Time 33.7 sec (22.0-30.0); Prothrombin Time 31.4 sec (9.0-12.0)
[2022-11-25 16:37] LABS: ALT 29 U/L (4-49); AST 36 U/L (17-59); African American GFR (CKD) >90 (>60 ml/min/1.73 sqM); Alkaline Phosphatase 86 U/L (38-126); Amylase 43 U/L (30-110); Anion Gap 5 mmol/L; Blood Urea Nitrogen 14 mg/dL (9-20); Calcium 8.7 mg/dL (8.4-10.2); Carbon Dioxide 27 mmol/L (22-30); Chloride 109 mmol/L (98-107); Glucose 117 mg/dL (74-99); Lipase 43 U/L (23-300); Non-African American GFR(CKD) 78 (>60 ml/min/1.73 sqM); Potassium 3.5 mmol/L (3.5-5.1); Sodium 141 mmol/L (137-145); Total Bilirubin 1.1 mg/dL (0.2-1.3); Total Protein 7.5 g/dL (6.3-8.2)
--- NOTE | 2022-11-25 16:56 | CT ---
EXAMINATION TYPE: CT ChestAbdPelvis wo con CT DLP: 1388.4 mGycm, Automated exposure control for dose reduction was used. DATE OF EXAM: 11/25/2022 4:31 PM COMPARISON: CT 07/23/2022, 01/24/2022 CLINICAL INDICATION:Male, 77 years old with history of pain, c/o diarrhea, hx of prostate and throat ca Technique: Multiple axial images of the chest, abdomen, and pelvis were obtained. Two-dimensional cor onal and sagittal reconstructions were obtained. Contrast used: None Oral contrast used: without Oral Contrast Findings: CHEST: LUNGS/ PLEURA: Right lower lobe calcified granuloma. Subsegmental atelectasis in the right lower lobe along the postsurgical gastric pull-through. No focal consolidation, pneumothorax or pleural effusio n. AIRWAY: Patent and unremarkable. HEART: The heart is mildly enlarged for size. There is aortic valve calcifications which are severe. Mild coronary artery calcifications. There is small to moderate pericardial effusion. MEDIASTINUM: No gross evidence of adenopathy. Post surgical changes with gastric pull-through and eso phagectomy. VASCULATURE: No aortic aneurysm. MUSCULOSKELETAL: No acute osseous abnormalities. Postsurgical changes to the right shoulder with arth roplasty in place. SOFT TISSUES/LYMPH NODES: Unremarkable. LOWER NECK: No significant findings. ABDOMEN: ABDOMEN LIVER: Unremarkable GALLBLADDER AND BILE DUCTS: Unremarkable. PANCREAS: Unremarkable. SPLEEN: Unremarkable. ADRENAL GLANDS: Unremarkable. KIDNEYS AND URETERS: Nonobstructing left renal calculus measuring 7 x 3 mm. No evidence of hydronephr osis or right renal calculus. PELVIS BLADDER: Unremarkable REPRODUCTIVE: Unremarkable. ABDOMEN & PELVIS STOMACH AND BOWEL: Inflammation changes are seen around the large bowel involving the splenic flexure to the sigmoid colon and the rectum. Mathews measuring prominent throughout this region which are subo ptimally evaluated without IV and oral contrast. The rectal bowel wall has some mucosal fat depositio n measuring up to 6 mm. Postsurgical changes of gastric pull-through with esophagectomy. Multiple col onic diverticula are present. There is herniation of colon through the mediastinum adjacent to the stomach and on the left side of the. PERITONEUM: No evidence of pneumoperitoneum or free fluid. VASCULATURE: No evidence of aortic aneurysm. MUSCULOSKELETAL: No acute osseous abnormalities multilevel disc bulging present. Total facet joint ar thropathy and disc degeneration changes. LYMPH NODES: No gross evidence for lymphadenopathy. SOFT TISSUE/ABDOMINAL WALL: Fat-containing left inguinal hernia. IMPRESSION: Thorax: 1. Post surgical changes with gastric pull-through and esophagectomy. 2. Severe aortic valve leaflet calcifications. 3. [id number] pericardial effusion 4. Mild coronary artery atherosclerosis. 5. No evidence for lymphadenopathy. Abdomen/pelvis: 1. Colitis/proctitis involving the sigmoid colon/descending colon and rectum. No organizing fluid co llection or pneumoperitoneum. 2. Nonobstructing left renal calculus. 3. Large bowel hernia into the mediastinum 4. Fat-containing left inguinal hernia. 5. Colonic diverticulosis. 6. No evidence for lymphadenopathy.
[2022-11-25] MEDS ORDERED: AMPICILLIN-SULBACTAM 3 GM in SODIUM CHLORIDE 0.9% 100 ML IVPB STA (16:59)
[2022-11-25 21:52] VITALS: BP 153/100; PULSE 70; RESP 20; TEMP 98.6
== END 2022-11-25 22:07 | disposition other institution (70) ==
LOC: EC 14:08
DX: R11.2 Nausea with vomiting, unspecified (principal); K52.9 Noninfective gastroenteritis and colitis, unspecified; K44.9 Diaphragmatic hernia without obstruction or gangrene; I31.39 Other pericardial effusion (noninflammatory); K40.90 Unilateral inguinal hernia, without obstruction or gangrene, not specified as recurrent; K57.30 Diverticulosis of large intestine without perforation or abscess without bleeding; N20.0 Calculus of kidney; K62.89 Other specified diseases of anus and rectum; J44.9 Chronic obstructive pulmonary disease, unspecified; E11.9 Type 2 diabetes mellitus without complications; K21.9 Gastro-esophageal reflux disease without esophagitis; E78.5 Hyperlipidemia, unspecified; I10 Essential (primary) hypertension; I25.10 Atherosclerotic heart disease of native coronary artery without angina pectoris; Z79.84 Long term (current) use of oral hypoglycemic drugs; Z79.899 Other long term (current) drug therapy; Z79.82 Long term (current) use of aspirin; Z91.09 Other allergy status, other than to drugs and biological substances; Z91.040 Latex allergy status; Z91.030 Bee allergy status
CPT/HCPCS: 99285; 96365; 96375 ×2; 96361 ×2; 80053; 82150; 83605; 83690; 84484; 85025; 85610; 85730; 71250; 74176; J2405; J0295; C9113; 36415

== ENCOUNTER 2022-12-27 02:13 | Emergency (ER) | payer MEDICARE, OTHER ==
[2022-12-27 02:20] VITALS: TEMP 97.5
[2022-12-27] MEDS ORDERED: SODIUM CHLORIDE 0.9% 1,000 ML IV STA (02:48)
[2022-12-27 03:08] LABS: Basophils % (A) 0 %; Eosinophils # (A) 0.1 k/uL (0-0.7); Eosinophils % (A) 1 %; HCT 36.5 % (39.0-53.0); Lymphocytes # (A) 0.4 k/uL (1.0-4.8); Lymphocytes % (A) 6 %; MCH 32.2 pg (25.0-35.0); MCHC 32.5 g/dL (31.0-37.0); Mean Platelet Volume 7.7; Monocytes # (A) 0.3 k/uL (0-1.0); Monocytes % (A) 5 %; Neutrophils # (A) 6.2 k/uL (1.3-7.7); Neutrophils % (A) 87 %; Platelet Count 161 k/uL (150-450); RBC 3.69 m/uL (4.30-5.90); WBC 7.1 k/uL (3.8-10.6)
[2022-12-27] MEDS ORDERED: MORPHINE SULFATE 4 MG/ML SYRINGE IVP STA (03:09)
[2022-12-27] MEDS ORDERED: ONDANSETRON 4 MG/2 ML VIAL IVP STA (03:09)
[2022-12-27] MEDS ORDERED: PANTOPRAZOLE 40 MG/10 ML VIAL IVP STA (03:09)
[2022-12-27 03:12] LABS: HGB 11.9 gm/dL (13.0-17.5)
[2022-12-27 03:20] LABS: INR 2.7 (<1.2); Partial Thromboplastin Time 34.8 sec (22.0-30.0); Prothrombin Time 26.5 sec (9.0-12.0)
[2022-12-27 03:32] LABS: ALT 41 U/L (4-49); AST 45 U/L (17-59); African American GFR (CKD) >90 (>60 ml/min/1.73 sqM); Albumin 2.8 g/dL (3.5-5.0); Alkaline Phosphatase 101 U/L (38-126); Amylase 31 U/L (30-110); Anion Gap 8 mmol/L; Blood Urea Nitrogen 15 mg/dL (9-20); Carbon Dioxide 22 mmol/L (22-30); Chloride 107 mmol/L (98-107); Glucose 131 mg/dL (74-99); Lipase 45 U/L (23-300); Non-African American GFR(CKD) 80 (>60 ml/min/1.73 sqM); Potassium 3.1 mmol/L (3.5-5.1); Sodium 137 mmol/L (137-145); Total Bilirubin 1.1 mg/dL (0.2-1.3)
--- NOTE | 2022-12-27 04:47 | ED ---
General Adult HPI - General Chief complaint: Nausea/Vomiting/Diarrhea Stated complaint: NAUSEA,VOMITING Time Seen by Provider: 12/27/22 02:40 Source: patient, RN notes reviewed, old records reviewed Mode of arrival: EMS - History of Present Illness Initial comments: Patient is a 77 year old male presents emergency Department complaining of abdominal pain primarily in left lower quadrant, as well as nausea, vomiting and diarrhea. Does have a history of a recent diaphragmatic hernia repair in the last few months. Has a cardiac history as well as COPD. Has a history of diab etes. States symptoms were somewhat sudden in onset. Denies any blood in his emesis or stool. Denies any dysuria or hematuria. Denies any chest pain or shortness of breath. No other acute complaints at this time. Presents for further evaluation at this time.Patient is a history of esophageal cancer status post esophageal surgery for this. - Related Data Home Medications Medication Instructions Recorded Confirmed Losartan [Cozaar] 50 mg PO BID 05/25/18 11/25/22 Omeprazole 20 mg PO W/SUPPER 05/25/18 11/25/22 Multivitamins, Thera [Multivitamin 1 tab PO DAILY@1200 09/26/19 11/25/22 (formulary)] Aspirin 81 mg PO HS 10/04/21 11/25/22 Cholecalciferol [Vitamin D3 (25 25 mcg PO DAILY 10/04/21 11/25/22 Mcg = 1000 Iu)] Cyanocobalamin (Vitamin B-12) 1,000 mcg PO DAILY 10/04/21 11/25/22 [Vitamin B-12] Ferrous Sulfate [Feosol] 325 mg PO BID@1700,2100 10/04/21 11/25/22 Warfarin [Coumadin] 7.5 mg PO SUMOWEFRSA 10/04/21 11/25/22 carvediloL [Coreg] 6.25 mg PO BID-W/MEALS 10/04/21 11/25/22 Pioglitazone [Actos] 15 mg PO DAILY 07/03/22 11/25/22 rOPINIRole HCL [Requip] 0.5 mg PO HS 07/03/22 11/25/22 Atorvastatin [Lipitor] 40 mg PO W/SUPPER 11/25/22 11/25/22 Carboxymethylcellulose Sodium 1 dropper LEFT EYE DAILY 11/25/22 11/25/22 [Thera Tears] Cetirizine HCl [Zyrtec] 10 mg PO DAILY 11/25/22 11/25/22 Latanoprost/Pf [Latanoprost 0.005% 1 drop RIGHT EYE HS 11/25/22 11/25/22 Eye Drop] Warfarin [Coumadin] 5 mg PO TUTH 11/25/22 11/25/22 Previous Rx's Medication Instructions Recorded Ondansetron Odt [Zofran Odt] 4 mg PO Q8HR PRN #6 tab 12/27/22 Tamsulosin [Flomax] 0.4 mg PO DAILY 7 Days #7 cap 12/27/22 Allergies Allergy/AdvReac Type Severity Reaction Status Date / Time bee venom protein (honey bee) Allergy Severe Anaphylaxis Verified 11/25/22 18:01 latex Allergy Unknown Rash/Hives Verified 11/25/22 18:01 adhesive tape Allergy Unknown-Per Verified 11/25/22 18:01 Dr Dickens's office Review of Systems ROS Statement: Those systems with pertinent positive or pertinent negative responses have been documented in the HPI. Review of Systems: CONST: Denies fever EYES: Denies blurry vision ENT: Denies nasal congestion C/V: Denies Chest pain RESP: Denies shortness of breath GI: Endorses abdominal pain : Denies dysuria SKIN: Denies rash. MSK: Denies joint pain. NEURO: Denies headache ROS Other: All systems not noted in ROS Statement are negative. Past Medical History Past Medical History: Cancer, COPD, Diabetes Mellitus, GERD/Reflux, Hearing Disorder / Deafness, Hyperlipidemia, Hypertension, Prostate Disorder Additional Past Medical History / Comment(s): COPD WITH SOB (NO RX)-( MANUAL QA TESTER FOR 45 YEARS). "ENLARGED HEART VALVES" PER PATIENT. 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 BILATERAL HEARING AIDS. History of Any Multi-Drug Resistant Organisms: None Reported Past Surgical History: Orthopedic Surgery, Prostate Surgery Additional Past Surgical History / Comment(s): RIGHT SHOULDER X2, EGD'S, COLONOSCOPIES, MICAH CATARACTS, PATIENT STATES ESOPHAGUS REMOVED AND STOMACH USED. PROSTATE SX FOR CANCER Past Anesthesia/Blood Transfusion Reactions: No Reported Reaction Past Psychological History: No Psychological Hx Reported Smoking Status: Never smoker Past Alcohol Use History: None Reported Past Drug Use History: None Reported - Past Family History Sister(s) Family Medical History: Cancer Additional Family Medical History / Comment(s): AT 13 YRS OF AGE. General Exam - General Exam Comments Initial Comments: General: Appears in no acute distress. HEAD: Normal with no signs of head trauma. EYES: PERRLA, EOMI, conjunctiva normal, no discharge. ENT: Hearing grossly intact, normal oropharynx. Mildly dry mucous membranes. RESPIRATORY: Clear breath sounds bilaterally. No wheezes, rales, or rhonchi. C/V: Regular rate and rhythm. S1 and S2 auscultated, peripheral pulses 2+ and intact throughout ABD: Abdomen soft, nondistended. Mildly tender to palpation in the left lower quadrant. No guarding. No rebound tenderness. No peritoneal signs. No flank tenderness. No CVA tenderness to percussion. EXT: Normal range of motion, no obvious deformity SKIN: No rashes or lesions observed on exposed skin. NEURO: Alert and oriented 4. Course Vital Signs 12/27/22 12/27/22 12/27/22 02:16 03:30 05:51 Temperature 97.5 F L Pulse Rate 51 L 53 L 55 L Respiratory 18 15 19 Rate Blood Pressure 166/85 157/89 163/89 O2 Sat by Pulse 99 95 95 Oximetry 12/27/22 07:14 Temperature Pulse Rate 63 Respiratory 16 Rate Blood Pressure 178/87 O2 Sat by Pulse 99 Oximetry Medical Decision Making - Medical Decision Making Was pt. sent in by a medical professional or institution (, PA, STOCKBROKING DEALER, urgent care, hospital, or longterm...) When possible be specific @ -No Did you speak to anyone other than the patient for history (EMS, parent, family, police, friend...)? What history was obtained from this source @ -No Did you review nursing and triage notes (agree or disagree)? Why? @ -I reviewed and agree with nursing and triage notes Were old charts reviewed (outside hosp., previous admission, EMS record, old EKG, old radiological studies, urgent care reports/EKG's, longterm records)? Report findings @ -Charts reviewed from November 2022. Differential Diagnosis (chest pain, altered mental status, abdominal pain women, abdominal pain men, vaginal bleeding, weakness, fever, dyspnea, syncope, headache, dizziness, GI bleed, back pain, seizure, CVA, palpatations, mental health, musculoskeletal)? @ -Differential Abdominal Pain Men: Appendicitis, cholecystitis, diverticulosis, ischemic bowel, pancreatitis, hepatitis, UTI, gastroenteritis, AAA, incarcerated hernia, bowel obstruction, constipation, inflammatory bowel, hepatitis, peptic ulcer disease, splenic infarction, perforated viscus, testicular torsion, this is not meant to be an all-inclusive list EKG interpreted by me (3pts min.). @ -As above X-rays interpreted by me (1pt min.). @ -None done CT interpreted by me (1pt min.). @ -CT imaging shows no obvious acute process other than left-sided ureter lithiasis likely the source of this pain. Postop changes otherwise. Mild hydronephrosis. U/S interpreted by me (1pt. min.). @ -None done What testing was considered but not performed or refused? (CT, X-rays, U/S, labs)? Why? @ -None What meds were considered but not given or refused? Why? @ -None Did you discuss the management of the patient with other professionals (pro fessionals i.e. , PA, STOCKBROKING DEALER, lab, RT, psych nurse, public health social worker, mining captain, teacher, business services officer, shoe caser)? Give summary @ -No Was smoking cessation discussed for >3mins.? @ -No Was critical care preformed (if so, how long)? @ -No Were there social determinants of health that impacted care today? How? (Homelessness, low income, unemployed, alcoholism, drug addiction, transporta tion, low edu. Level, literacy, decrease access to med. care, care home, rehab)? @ -No Was there de-escalation of care discussed even if they declined (Discuss DNR or withdrawal of care, Hospice)? DNR status @ -No What co-morbidities impacted this encounter? (DM, HTN, Smoking, COPD, CAD, Cancer, CVA, ARF, Chemo, Hep., AIDS, mental health diagnosis, sleep apnea, morbid obesity)? @ -None Was patient admitted / discharged? Hospital course, mention meds given and route, prescriptions, significant lab abnormalities, going to OR and other pertinent info. @ -Based on the patient's presentation and physical exam, I'm concerned for intra-abdominal process for current symptoms. Does have the recent surgery. We will obtain a CT of the chest abdomen pelvis as well as abdominal laboratory studies and screening EKG. Patient was in agreement this plan. He will be symptomatically treated with IV fluids, morphine, Zofran, Protonix. Vital signs within acceptable limits. EKG shows left bundle branch block which is chronic. Patient's labs are remarkable for a mild anemia of 11.9. Patient has a therapeutic INR of 2.7. Patient is hypokalemic at 3.1 which will be replenished. Lactic acid within acceptable limits. CT imaging shows postop changes as well as a small 3 mm left-sided ureter lithiasis. There is some mild hydronephrosis on the left as well. We're waiting on a urine, and when this returned showing no evidence of UTI. Patient's labs otherwise are within acceptable limits. On reevaluation, patient's pain is under control. He would like to go home. We did discuss his results. Strict return precautions were discussed. He can follow-up with urology. He will be given a dose of Flomax as well as prescription for Flomax and ODT Zofran. He was in agreement this plan. I will provide the patient with a prescription for Flomax, ODT Zofran. I instructed the patient to follow up with their PCP in the next 1-3 days. I pr ovided contact information for follow up with urology. I explained that the patient should return to the emergency department if they experience any worsening symptoms. Strict return precautions were discussed with the patient. The patient expressed understanding of these instructions. I answered all questions that the patient had. The patient was discharged home in good condition with their prescriptions and follow up information. Undiagnosed new problem with uncertain prognosis? @ -No Drug Therapy requiring intensive monitoring for toxicity (Heparin, Nitro, Insulin, Cardizem)? @ -No Were any procedures done? @ -No Diagnosis/symptom? @ -Left ureter lithiasis Acute, or Chronic, or Acute on Chronic? @ -Acute Uncomplicated (without systemic symptoms) or Complicated (systemic symptoms)? @ -Complicated Side effects of treatment? @ -No Exacerbation, Progression, or Severe Exacerbation? @ -No Poses a threat to life or bodily function? How? (Chest pain, [place], [place], pneumonia, PE, COPD, DKA, ARF, appy, cholecystitis, CVA, Diverticulitis, Homicidal, Suicidal, threat to staff... and all critical care pts) @ -No - Lab Data Result diagrams: 12/27/22 02:51 12/27/22 02:51 Lab Results 12/27/22 12/27/22 12/27/22 Range/Units 02:51 02:51 02:51 WBC 7.1 (3.8-10.6) k/uL RBC 3.69 L (4.30-5.90) m/uL Hgb 11.9 L D (13.0-17.5) gm/dL Hct 36.5 L (39.0-53.0) % MCV 99.0 (80.0-100.0) fL MCH 32.2 (25.0-35.0) pg MCHC 32.5 (31.0-37.0) g/dL RDW 14.0 (11.5-15.5) % Plt Count 161 (150-450) k/uL MPV 7.7 Neutrophils % 87 % Lymphocytes % 6 % Monocytes % 5 % Eosinophils % 1 % Basophils % 0 % Neutrophils # 6.2 (1.3-7.7) k/uL Lymphocytes # 0.4 L (1.0-4.8) k/uL Monocytes # 0.3 (0-1.0) k/uL Eosinophils # 0.1 (0-0.7) k/uL Basophils # 0.0 (0-0.2) k/uL PT 26.5 H (9.0-12.0) sec INR 2.7 H (<1.2) APTT 34.8 H (22.0-30.0) sec Sodium 137 (137-145) mmol/L Potassium 3.1 L (3.5-5.1) mmol/L Chloride 107 (98-107) mmol/L Carbon Dioxide 22 (22-30) mmol/L Anion Gap 8 mmol/L BUN 15 (9-20) mg/dL Creatinine 0.93 (0.66-1.25) mg/dL Est GFR (CKD-EPI)AfAm >90 (>60 ml/min/1.73 sqM) Est GFR (CKD-EPI)NonAf 80 (>60 ml/min/1.73 sqM) Glucose 131 H (74-99) mg/dL Plasma Lactic Acid Arturo (0.7-2.0) mmol/L Calcium 8.0 L (8.4-10.2) mg/dL Total Bilirubin 1.1 (0.2-1.3) mg/dL AST 45 (17-59) U/L ALT 41 (4-49) U/L Alkaline Phosphatase 101 (38-126) U/L Total Protein 6.0 L (6.3-8.2) g/dL Albumin 2.8 L (3.5-5.0) g/dL Amylase 31 (30-110) U/L Lipase 45 (23-300) U/L Urine Color Urine Appearance (Clear) Urine pH (5.0-8.0) Ur Specific [place] (1.001-1.035) Urine Protein (Negative) Urine Glucose (UA) (Negative) Urine Ketones (Negative) Urine Blood (Negative) Urine Nitrite (Negative) Urine Bilirubin (Negative) Urine Urobilinogen (<2.0) mg/dL Ur Leukocyte Esterase (Negative) Urine RBC (0-5) /hpf Urine WBC (0-5) /hpf Ur Squamous Epith Cells (0-4) /hpf Urine Bacteria (None) /hpf Urine Mucus (None) /hpf 12/27/22 12/27/22 Range/Units 02:51 06:45 WBC (3.8-10.6) k/uL RBC (4.30-5.90) m/uL Hgb (13.0-17.5) gm/dL Hct (39.0-53.0) % MCV (80.0-100.0) fL MCH (25.0-35.0) pg MCHC (31.0-37.0) g/dL RDW (11.5-15.5) % Plt Count (150-450) k/uL MPV Neutrophils % % Lymphocytes % % Monocytes % % Eosinophils % % Basophils % % Neutrophils # (1.3-7.7) k/uL Lymphocytes # (1.0-4.8) k/uL Monocytes # (0-1.0) k/uL Eosinophils # (0-0.7) k/uL Basophils # (0-0.2) k/uL PT (9.0-12.0) sec INR (<1.2) APTT (22.0-30.0) sec Sodium (137-145) mmol/L Potassium (3.5-5.1) mmol/L Chloride (98-107) mmol/L Carbon Dioxide (22-30) mmol/L Anion Gap mmol/L BUN (9-20) mg/dL Creatinine (0.66-1.25) mg/dL Est GFR (CKD-EPI)AfAm (>60 ml/min/1.73 sqM) Est GFR (CKD-EPI)NonAf (>60 ml/min/1.73 sqM) Glucose (74-99) mg/dL Plasma Lactic Acid Arturo 1.3 (0.7-2.0) mmol/L Calcium (8.4-10.2) mg/dL Total Bilirubin (0.2-1.3) mg/dL AST (17-59) U/L ALT (4-49) U/L Alkaline Phosphatase (38-126) U/L Total Protein (6.3-8.2) g/dL Albumin (3.5-5.0) g/dL Amylase (30-110) U/L Lipase (23-300) U/L Urine Color Yellow Urine Appearance Cloudy (Clear) Urine pH 5.5 (5.0-8.0) Ur Specific [place] 1.019 (1.001-1.035) Urine Protein 1+ H (Negative) Urine Glucose (UA) Negative (Negative) Urine Ketones Negative (Negative) Urine Blood Large H (Negative) Urine Nitrite Negative (Negative) Urine Bilirubin Negative (Negative) Urine Urobilinogen <2.0 (<2.0) mg/dL Ur Leukocyte Esterase Negative (Negative) Urine RBC >182 H (0-5) /hpf Urine WBC 1 (0-5) /hpf Ur Squamous Epith Cells <1 (0-4) /hpf Urine Bacteria Rare H (None) /hpf Urine Mucus Rare H (None) /hpf - EKG Data -: EKG Interpreted by Me EKG Comments: 12-lead Electrocardiogram Interpretation Note EKG was reviewed and interpreted by myself. 12-lead ECG performed at 0223 is interpreted by me as revealing normal sinus rhythm with chronic left bundle branch block at a rate of 61 beats per minute. [place] is normal. QRS duration is 145 ms, QTc is 450 ms.. There were no ST or T wave abnormalities to suggest myocardial ischemia or injury. R wave progression across the precordium was satisfactory. By my interpretation this EKG is non-diagnostic for acute ischemia. Similar to EKG obtained in November 2022. Disposition Clinical Impression: Ureterolithiasis Disposition: HOME SELF-CARE Condition: Good Instructions (If sedation given, give patient instructions): Kidney Stones (ED) Prescriptions: Tamsulosin [Flomax] 0.4 mg PO DAILY 7 Days #7 cap Ondansetron Odt [Zofran Odt] 4 mg PO Q8HR PRN #6 tab PRN Reason: Nausea Is patient prescribed a controlled substance at d/c from ED?: No Referrals: Lexi Blackwood MD [Primary Care Provider] - 1-2 days Harry Corea MD [STAFF PHYSICIAN] - 1-2 days Time of Disposition: 07:22
[2022-12-27] MEDS ORDERED: POTASSIUM CHLORIDE ER 20 MEQ TAB.ER PO STA (05:52)
--- NOTE | 2022-12-27 06:27 | CT ---
EXAM: CT Chest With Intravenous Contrast CLINICAL HISTORY: ITS.REASON CT Reason: abd pain, n/v/d TECHNIQUE: Axial computed tomography images of the chest with intravenous contrast. CTDI is 12.8 mGy and DLP is 753.45 mGy-cm. This CT exam was performed using one or more of the following dose reduction techniques: automated exposure control, adjustment of the mA and/or kV according to patient size, and/or use of iterative reconstruction technique. COMPARISON: No relevant prior studies available. FINDINGS: Lungs: Basal atelectasis. Pleural space: Trace pleural effusion. No pneumothorax. Heart: Dense aortic valvular calcification, question bicuspid aortic valve. No significant pericardial effusion. No significant coronary artery calcifications. Mediastinum: Right hilar calcified lymph node. Atrial enlargement. Bones/joints: Prior right shoulder arthroplasty, secondary beam hardening artifacts. No acute fracture. No dislocation. Soft tissues: Unremarkable. Vasculature: Coronary atherosclerotic calcification. No thoracic aortic aneurysm. Lymph nodes: See above. 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 Other findings: Right basal calcified granuloma. IMPRESSION: Probable postsurgical changes as above. EXAM: CT Abdomen and Pelvis With Intravenous Contrast CLINICAL HISTORY: ITS.REASON CT Reason: abd pain, n/v/d TECHNIQUE: Axial computed tomography images of the abdomen and pelvis with intravenous contrast. CTDI is 14.7 mGy and DLP is 753.45 mGy-cm. This CT exam was performed using one or more of the following dose reduction techniques: automated exposure control, adjustment of the mA and/or kV according to patient size, and/or use of iterative reconstruction technique. COMPARISON: No relevant prior studies available. FINDINGS: Lung bases: Unremarkable. No mass. No consolidation. Mediastinum: Small hiatal hernia containing small bowel loops. ABDOMEN: Liver: Unremarkable. No mass. Gallbladder and bile ducts: Unremarkable. No calcified stones. No ductal dilation. Pancreas: Unremarkable. No mass. No ductal dilation. Spleen: Unremarkable. No splenomegaly. Adrenals: Unremarkable. No mass. Kidneys and ureters: Left hydroureteronephrosis. Left perinephric stranding. Lower pole left renal calculus. 3 mm calculus in the distal left ureter just proximal to the ureterovesical junction. No right-sided hydroureteronephrosis or nephrolithiasis. Stomach and bowel: Colonic diverticulosis without acute diverticulitis. No obstruction. PELVIS: Appendix: No findings to suggest acute appendicitis. Bladder: Unremarkable. No mass. Reproductive: Unremarkable as visualized. ABDOMEN and PELVIS: Intraperitoneal space: Unremarkable. No free air. No significant fluid collection. Bones/joints: No acute fracture. No dislocation. Soft tissues: Small left inguinal hernia containing mesenteric fat. Vasculature: Unremarkable. No abdominal aortic aneurysm. Lymph nodes: Unremarkable. No enlarged lymph nodes. IMPRESSION: 1. Moderate obstructive changes associated with a distal left ureteral calculus. 2. Nonobstructing lower pole left renal calculus. 3. Findings are as above
[2022-12-27 07:25] LABS: Appearance,Urine Cloudy (Clear); Bacteria,Urine Rare /hpf; Bilirubin,Urine Negative (Negative); Blood,Urine Large (Negative); Color,Urine Yellow; Glucose,Urine (UA) Negative (Negative); Ketones,Urine Negative (Negative); Leukocyte Esterase,Urine Negative (Negative); Mucus,Urine Rare /hpf; Nitrite,Urine Negative (Negative); PH, Urine 5.5 (5.0-8.0); Protein,Urine 1+ (Negative); RBC,Urine >182 /hpf (0-5); Specific Gravity,Urine 1.019 (1.001-1.035); Squamous Epithelial Cell,Urine <1 /hpf (0-4); Urobilinogen,Urine <2.0 mg/dL (<2.0); WBC,Urine 1 /hpf (0-5)
[2022-12-27] MEDS ORDERED: TAMSULOSIN 0.4 MG CAP.ER.24H PO STA (07:27)
[2022-12-27] MEDS ORDERED: ACET/COD 300 MG/30 MG STARTER PACK 6 TAB BTL PO STA (07:34)
[2022-12-27 07:56] VITALS: BP 152/77; PULSE 53; RESP 18
== END 2022-12-27 08:20 | disposition home or self-care (01) ==
LOC: EC 02:13
DX: N20.2 Calculus of kidney with calculus of ureter (principal); J44.9 Chronic obstructive pulmonary disease, unspecified; I10 Essential (primary) hypertension; E78.5 Hyperlipidemia, unspecified; K21.9 Gastro-esophageal reflux disease without esophagitis; Z79.82 Long term (current) use of aspirin; Z79.84 Long term (current) use of oral hypoglycemic drugs; Z79.899 Other long term (current) drug therapy; Z91.030 Bee allergy status; Z91.040 Latex allergy status; Z88.8 Allergy status to other drugs, medicaments and biological substances
CPT/HCPCS: 36415; 93005; 80053; 82150; 83605; 83690; 85025; 85610; 85730; 81001; 71260; 74177; 99284; 96374; 96375 ×2; 96361 ×4; J2270; J2405; C9113; Q9967

== ENCOUNTER 2022-12-29 05:08 | Inpatient (IN) | payer MEDICARE, OTHER ==
[2022-12-29] MEDS ORDERED: SODIUM CHLORIDE 0.9% 1,000 ML IV ONE (05:17)
[2022-12-29 05:43] LABS: HCT 40.9 % (39.0-53.0); HGB 13.3 gm/dL (13.0-17.5); MCH 32.5 pg (25.0-35.0); MCHC 32.4 g/dL (31.0-37.0); MCV 100.2 fL (80.0-100.0); Macrocytosis Slight; Mean Platelet Volume 8.2; Platelet Count 138 k/uL (150-450); RBC 4.08 m/uL (4.30-5.90); RDW 14.1 % (11.5-15.5); WBC 9.3 k/uL (3.8-10.6)
[2022-12-29 05:55] LABS: Calcium 8.2 mg/dL (8.4-10.2); Total Bilirubin 1.5 mg/dL (0.2-1.3); Total Protein 6.2 g/dL (6.3-8.2)
[2022-12-29 05:59] LABS: Partial Thromboplastin Time 25.7 sec (22.0-30.0); Prothrombin Time 52.7 sec (9.0-12.0)
[2022-12-29 06:04] LABS: Band Neutrophils % 28 %; Lymphocytes # (M) 0.19 k/uL (1.0-4.8); Neutrophils % (M) 70 %; Nucleated Red Blood Cells 0 /100 WBC (0-0); Total Cells Counted 200; Toxic Granulation Present; Toxic Vacuolation Present
[2022-12-29 06:08] LABS: INR 5.3 (<1.2)
--- NOTE | 2022-12-29 06:10 | ED ---
General Adult HPI - General Source: patient, family, EMS Mode of arrival: EMS Limitations: no limitations <Martín Patel - Last Filed: 12/29/22 06:35> <Camilo Pérez - Last Filed: 12/29/22 10:26> - General Chief complaint: Fall Stated complaint: Fall Time Seen by Provider: 12/29/22 05:15 - History of Present Illness Initial comments: This is a 77-year-old male with extensive past medical history including pre vious esophageal cancer presents emergency department via EMS for a fall. The patient reported that he got up out of bed and stated that all of a sudden "the room was spinning" and he fell on the left side of his body, denying hitting his head and losing consciousness. The patient is on blood thinners but stated that he did not hit his head. The patient stated that he had left-sided abdominal p ain but denied any left hip pain or chest pain. The patient denied any other acute pain or complaints at this time. The patient's was present and stated that the patient had an unwitnessed fall but look like he may have hit the fireplace but was unsure because there were items that were thrown onto the ground. After the patient's nurse had been evaluating the patient after my initial evaluation, it was reported that the patient had a cardiac window placed at [facility] approximately 2 weeks ago. It was also reported that the patient had been seen emergency department 2 days prior for left-sided abdominal pain and was determined to have a kidney stone and was sent home with pain medications and a [id number] approach to pass the kidney stone. It was reported by the patient started the patient had not been eating and drinking appropriately and was on pain medications for this. The patient initially did not provide any of these details but then confirmed them once his family was present at the bedside. (Martín Patel) - Related Data Home Medications Medication Instructions Recorded Confirmed Losartan [Cozaar] 50 mg PO BID 05/25/18 12/29/22 Omeprazole 20 mg PO W/SUPPER 05/25/18 12/29/22 Multivitamins, Thera [Multivitamin 1 tab PO DAILY@1200 09/26/19 12/29/22 (formulary)] Aspirin 81 mg PO HS 10/04/21 12/29/22 Cholecalciferol [Vitamin D3 (25 25 mcg PO DAILY 10/04/21 12/29/22 Mcg = 1000 Iu)] Cyanocobalamin (Vitamin B-12) 1,000 mcg PO DAILY 10/04/21 12/29/22 [Vitamin B-12] Ferrous Sulfate [Feosol] 325 mg PO BID@1700,2100 10/04/21 12/29/22 Warfarin [Coumadin] 7.5 mg PO SUMOWEFRSA 10/04/21 12/29/22 carvediloL [Coreg] 6.25 mg PO BID-W/MEALS 10/04/21 12/29/22 Pioglitazone [Actos] 15 mg PO DAILY 07/03/22 12/29/22 rOPINIRole HCL [Requip] 0.5 mg PO HS 07/03/22 12/29/22 Atorvastatin [Lipitor] 40 mg PO W/SUPPER 11/25/22 12/29/22 Carboxymethylcellulose Sodium 1 drop LEFT EYE DAILY 11/25/22 12/29/22 [Thera Tears] Cetirizine HCl [Zyrtec] 10 mg PO DAILY 11/25/22 12/29/22 Latanoprost/Pf [Latanoprost 0.005% 1 drop RIGHT EYE HS 11/25/22 12/29/22 Eye Drop] Warfarin [Coumadin] 5 mg PO TUTH 11/25/22 12/29/22 Previous Rx's Medication Instructions Recorded Ondansetron Odt [Zofran Odt] 4 mg PO Q8HR PRN #6 tab 12/27/22 Tamsulosin [Flomax] 0.4 mg PO DAILY 7 Days #7 cap 12/27/22 Allergies Allergy/AdvReac Type Severity Reaction Status Date / Time bee venom protein (honey bee) Allergy Severe Anaphylaxis Verified 12/29/22 10:03 latex Allergy Unknown Rash/Hives Verified 12/29/22 10:03 adhesive tape Allergy Unknown-Per Verified 12/29/22 10:03 Dr Dickens's office Review of Systems ROS Other: All systems not noted in ROS Statement are negative. <Martín Patel - Last Filed: 12/29/22 06:35> ROS Other: All systems not noted in ROS Statement are negative. <Camilo Pérez - Last Filed: 12/29/22 10:26> ROS Statement: Those systems with pertinent positive or pertinent negative responses have been documented in the HPI. Past Medical History Past Medical History: Cancer, COPD, Diabetes Mellitus, GERD/Reflux, Hearing Disorder / Deafness, Hyperlipidemia, Hypertension, Prostate Disorder Additional Past Medical History / Comment(s): COPD WITH SOB (NO RX)-( [employer] FOR 45 YEARS). "ENLARGED HEART VALVES" PER PATIENT. HX OF PROSTATE CANCER WITH SURGERY, HX OF THROAT CANCER WITH SURGERY (2016), LOW IRON. BILATERAL HEARING AIDS. History of Any Multi-Drug Resistant Organisms: None Reported Past Surgical History: Orthopedic Surgery, Prostate Surgery Additional Past Surgical History / Comment(s): RIGHT SHOULDER X2, EGD'S, COLONOSCOPIES, MICAH CATARACTS, PATIENT STATES ESOPHAGUS REMOVED AND STOMACH USED. PROSTATE SX FOR CANCER Past Anesthesia/Blood Transfusion Reactions: No Reported Reaction Past Psychological History: No Psychological Hx Reported Smoking Status: Never smoker Past Alcohol Use History: None Reported Past Drug Use History: None Reported - Past Family History Sister(s) Family Medical History: Cancer Additional Family Medical History / Comment(s): AT 13 YRS OF AGE. <Martín Patel - Last Filed: 12/29/22 06:35> General Exam Limitations: no limitations General appearance: alert, in no apparent distress Head exam: Present: atraumatic, normocephalic, normal inspection Eye exam: Present: normal appearance, PERRL Pupils: Present: normal accommodation ENT exam: Present: normal exam, normal oropharynx, mucous membranes moist Neck exam: Present: normal inspection, full ROM Respiratory exam: Present: normal lung sounds bilaterally Cardiovascular Exam: Present: regular rate, normal rhythm, normal heart sounds GI/Abdominal exam: Present: soft, tenderness (Tenderness noted on the left abdominal upper or lower quadrants), normal bowel sounds Extremities exam: Present: normal inspection, full ROM Back exam: Present: normal inspection, full ROM Neurological exam: Present: alert, oriented X3, CN II-XII intact Psychiatric exam: Present: normal affect, normal mood Skin exam: Present: warm, dry <Martín Patel - Last Filed: 12/29/22 06:35> Course <Camilo Pérez - Last Filed: 12/29/22 10:26> Vital Signs 12/29/22 12/29/22 12/29/22 05:29 08:01 09:22 Temperature 99.4 F 99.1 F Pulse Rate 66 71 82 Respiratory 22 19 18 Rate Blood Pressure 119/57 97/65 90/57 O2 Sat by Pulse 92 L 92 L 92 L Oximetry - Reevaluation(s) Reevaluation #1: 12/29/22 08:44 History was obtained from 2 family members at the bedside. He states that beginning a month around a second patient was in the hospital. He initially was sent to [place] for [facility] for concerns of "hole in his bowel." States that he was transferred to [place] regarding that. When he got to [place] a repeat repeated a scan which did not show any perforated bowel but they did find incidental finding of fluid around the heart. He had a pericardial window performed with what family member reports removal of "1000 mg of fluid." They did ascertain that 2 days ago he was seen in the emergency department for a kidney stone. Patient evaluated at bedside at 8:44 AM resting comfortably. He does request pain medications for left-sided groin and flank pain (Camilo Pérez) Reevaluation #2: 12/29/22 08:45 Laboratory evaluation reviewed. CBC unremarkable. Coag panel shows INR 5.3. Metabolic panel that shows some evidence of acute kidney injury. Troponin level 0.579. No recent troponin levels for trending. Imaging studies were reviewed from his visit. Computed tomography scan of the head and C-spine are unremarkable. Chest x-ray appears to be stable. Computed tomography scan of the abdomen and pelvis shows 2 mm calcification in the region of the left UVJ concerning for acute on chronic hydronephrosis. Rest. Be developing infiltrate in left lung base. 12/29/22 08:46 (Camilo Pérez) EKG Findings - EKG Comments: EKG Findings:: An EKG was obtained and was interpreted by myself showing a rate of 61, QRS duration of 83, QTC of 430. This EKG showed a normal sinus rhythm with ST segment elevations in all leads including V1, V2 with ST segment depressions in lead V5, V6 as well as aVL and aVF. Cardiology was consulted for these results. Dr. Marion stated this was not a STEMI at this time but did request a stat Echo. <Martín Patel - Last Filed: 12/29/22 06:35> Medical Decision Making - Lab Data Result diagrams: 12/29/22 05:29 12/29/22 05:29 <Martín Patel - Last Filed: 12/29/22 06:35> - Lab Data Result diagrams: 12/29/22 05:29 12/29/22 05:29 <Camilo Pérez - Last Filed: 12/29/22 10:26> - Medical Decision Making Was pt. sent in by a medical professional or institution (, PA, MARKET INVESTIGATOR, urgent care, hospital, or skilled nursing...) When possible be specific @ -No Did you speak to anyone other than the patient for history (EMS, parent, family, police, friend...)? What history was obtained from this source @ -Yes, EMS was contacted as was the and daughter in the room who did confirm different aspects of the history including previous cardiac window at [facility] as well as current treatment for small bowel obstruction and kidney stone which was not initially addressed. Did you review nursing and triage notes (agree or disagree)? Why? @ -I reviewed and agree with nursing and triage notes Were old charts reviewed (outside hosp., previous admission, EMS record, old EKG, old radiological studies, urgent care reports/EKG's, skilled nursing records)? Report findings @ -No old charts were reviewed Differential Diagnosis (chest pain, altered mental status, abdominal pain women, abdominal pain men, vaginal bleeding, weakness, fever, dyspnea, syncope, headache, dizziness, GI bleed, back pain, seizure, CVA, palpatations, mental health)? @ -Splenic laceration, intra-abdominal hematoma, intracranial hemorrhage EKG interpreted by me (3pts min.). @ -As above X-rays interpreted by me (1pt min.). @ -Chest x-ray was obtained but was pending at this time. CT interpreted by me (1pt min.). @ -CT head, CT C-spine as well as abdomen and pelvis CT was obtained however was still pending. U/S interpreted by me (1pt. min.). @ -None done What testing was considered but not performed or refused? (CT, X-rays, U/S, labs)? Why? @ -None What meds were considered but not given or refused? Why? @ -None Did you discuss the management of the patient with other professionals (professionals i.e. DrPerry, PA, MARKET INVESTIGATOR, lab, RT, psych nurse, social media campaign manager, operational risk consultant, teacher, small business banking officer, case filler)? Give summary @ -Yes, Dr. Marion was contacted regarding the patient's changes in EKG. He did state that there was signs for ischemia however this was not a STEMI at this time. He recommended a stat echocardiogram and cardiology consult. Was smoking cessation discussed for >3mins.? @ -No Was critical care preformed (if so, how long)? @ -No Were there social determinants of health that impacted care today? How? (Ho melessness, low income, unemployed, alcoholism, drug addiction, transportation, low edu. Level, literacy, decrease access to med. care, senior care, rehab)? @ -No Was there de-escalation of care discussed even if they declined (Discuss DNR or withdrawal of care, Hospice)? DNR status @ -No What co-morbidities impacted this encounter? (DM, HTN, Smoking, COPD, CAD, Cancer, CVA, ARF, Chemo, Hep., AIDS, mental health diagnosis, sleep apnea, morbid obesity)? @ -Hypertension, esophageal cancer, recent cardiac window Was patient admitted / discharged? Hospital course, mention meds given and rou te, prescriptions, significant lab abnormalities, going to OR and other pertinent info. @ -The patient was seen and evaluated in the emergency department. Physical exam, the patient was resting in bed with mild nausea and one episode of vomiting. Vital signs admission were stable. Laboratory workup as well as imaging was obtained. Laboratory workup did have abnormalities including a troponin which was elevated at 0.579 however there was no baseline troponin since the cardiac window was performed. The patient's INR was supratherapeutic at 5.4. The remainder of the imaging was to pending at this time. The patient was told of some the results and stated that further testing will be needed however the patient did request to be transferred [facility] if needed and if the patient was to be admitted. The patient had a full workup that was still pending at this time including imaging therefore the patient will be signed out to Dr. Pérez pending completion of the workup and possible transfer. The patient was sent out in stable condition. Undiagnosed new problem with uncertain prognosis? @ -No Drug Therapy requiring intensive monitoring for toxicity (Heparin, Nitro, Insulin, Cardizem)? @ -No Were any procedures done? @ -No Diagnosis/symptom? @ -Fall, left-sided abdominal pain Acute, or Chronic, or Acute on Chronic? @ -Acute on chronic Uncomplicated (without systemic symptoms) or Complicated (systemic symptoms)? @ -Complicated Side effects of treatment? @ -No Exacerbation, Progression, or Severe Exacerbation? @ -No Poses a threat to life or bodily function? How? (Chest pain, [place], [place], pneumonia, PE, COPD, DKA, ARF, appy, cholecystitis, CVA, Diverticulitis, Homicidal, Suicidal, threat to staff... and all critical care pts) @ -No (Martín Patel) Patient care senna to me by previous shift physician, Dr. Patel. Briefly, patient 77-year-old male presents emergency Department with fall. Patient concerned of his fall is concerned is left lower quadrant abdominal pain. Aubree israel was here in the emergency department 2 days ago diagnosed with symptomatic nephrolithiasis. He suffered a mechanical fall and of the night last night. Patient evaluated at the bedside is on multiple occasion complaining of persistent left lower quadrant abdominal and groin pain. Labs suggest worsening kidney function with a creatinine of 1.39 and the patient has recent normal kidney labs. Patient also has elevated troponin of 0.579. Patient has any chest symptoms. He has however had recent pericardial window. Patient has multiple risk factors. Given his lab abnormalities will admit patient to medicine with urology on consult. Case discussed with Dr. Courtney regarding patient's UVJ left stone (Camilo Pérez) - Lab Data Lab Results 12/29/22 12/29/22 12/29/22 Range/Units 05:29 05:29 05:29 WBC 9.3 (3.8-10.6) k/uL RBC 4.08 L (4.30-5.90) m/uL Hgb 13.3 (13.0-17.5) gm/dL Hct 40.9 (39.0-53.0) % MCV 100.2 H (80.0-100.0) fL MCH 32.5 (25.0-35.0) pg MCHC 32.4 (31.0-37.0) g/dL RDW 14.1 (11.5-15.5) % Plt Count 138 L (150-450) k/uL MPV 8.2 Neutrophils % (Manual) 70 % Band Neuts % (Manual) 28 % Lymphocytes % (Manual) 2 % Neutrophils # (Manual) 9.10 H (1.3-7.7) k/uL Lymphocytes # (Manual) 0.19 L (1.0-4.8) k/uL Nucleated RBCs 0 (0-0) /100 WBC Manual Slide Review Performed Toxic Granulation Present Toxic Vacuolation Present Macrocytosis Slight PT (9.0-12.0) sec INR (<1.2) APTT (22.0-30.0) sec Sodium 138 (137-145) mmol/L Potassium 3.7 (3.5-5.1) mmol/L Chloride 104 (98-107) mmol/L Carbon Dioxide 23 (22-30) mmol/L Anion Gap 11 mmol/L BUN 21 H (9-20) mg/dL Creatinine 1.39 H (0.66-1.25) mg/dL Est GFR (CKD-EPI)AfAm 57 (>60 ml/min/1.73 sqM) Est GFR (CKD-EPI)NonAf 49 (>60 ml/min/1.73 sqM) Glucose 108 H (74-99) mg/dL Calcium 8.2 L (8.4-10.2) mg/dL Magnesium 1.6 (1.6-2.3) mg/dL Total Bilirubin 1.5 H (0.2-1.3) mg/dL AST 64 H (17-59) U/L ALT 47 (4-49) U/L Alkaline Phosphatase 126 (38-126) U/L Troponin I 0.579 H* (0.000-0.034) ng/mL Total Protein 6.2 L (6.3-8.2) g/dL Albumin 3.0 L (3.5-5.0) g/dL Lipase 23 (23-300) U/L 12/29/22 Range/Units 05:29 WBC (3.8-10.6) k/uL RBC (4.30-5.90) m/uL Hgb (13.0-17.5) gm/dL Hct (39.0-53.0) % MCV (80.0-100.0) fL MCH (25.0-35.0) pg MCHC (31.0-37.0) g/dL RDW (11.5-15.5) % Plt Count (150-450) k/uL MPV Neutrophils % (Manual) % Band Neuts % (Manual) % Lymphocytes % (Manual) % Neutrophils # (Manual) (1.3-7.7) k/uL Lymphocytes # (Manual) (1.0-4.8) k/uL Nucleated RBCs (0-0) /100 WBC Manual Slide Review Toxic Granulation Toxic Vacuolation Macrocytosis PT 52.7 H (9.0-12.0) sec INR 5.3 H* (<1.2) APTT 25.7 (22.0-30.0) sec Sodium (137-145) mmol/L Potassium (3.5-5.1) mmol/L Chloride (98-107) mmol/L Carbon Dioxide (22-30) mmol/L Anion Gap mmol/L BUN (9-20) mg/dL Creatinine (0.66-1.25) mg/dL Est GFR (CKD-EPI)AfAm (>60 ml/min/1.73 sqM) Est GFR (CKD-EPI)NonAf (>60 ml/min/1.73 sqM) Glucose (74-99) mg/dL Calcium (8.4-10.2) mg/dL Magnesium (1.6-2.3) mg/dL Total Bilirubin (0.2-1.3) mg/dL AST (17-59) U/L ALT (4-49) U/L Alkaline Phosphatase (38-126) U/L Troponin I (0.000-0.034) ng/mL Total Protein (6.3-8.2) g/dL Albumin (3.5-5.0) g/dL Lipase (23-300) U/L Disposition <Martín Patel - Last Filed: 12/29/22 06:35> Decision Time: 09:30 <Camilo Pérez - Last Filed: 12/29/22 10:26> Clinical Impression: Nephrolithiasis, Elevated troponin Disposition: ADMITTED IP TO THIS [facility] Condition: Fair
[2022-12-29 06:19] LABS: Magnesium 1.6 mg/dL (1.6-2.3); Potassium 3.7 mmol/L (3.5-5.1)
--- NOTE | 2022-12-29 08:20 | CT ---
EXAMINATION TYPE: CT brain [place] wo con DATE OF EXAM: 12/29/2022 COMPARISON: None HISTORY: Fall CT DLP: 1449.7 mGycm, Automated exposure control for dose reduction was used. CONTRAST: Patient injected with 0 mL of Isovue 300. CT of the brain is performed utilizing 3 mm thick sections through the posterior fossa and 3 mm thick sections through the remaining calvarium. Study is performed within 24 hours of arrival to the hospital. No abnormal hyperdensity is present to suggest an acute intracranial hemorrhage. No mass lesion is evident. No acute infarcts are evident. Minimal chronic appearing white matter changes may be present. Ventricles and sulci are appropriate for the patient age. Paranasal sinuses and mastoid air cells within the [id number] are clear. IMPRESSIONS: 1. No acute intracranial process. Follow up MRI can be performed as clinically indicated. CT cervical spine. COMPARISON: None CT of the cervical spine is performed in the axial plane at 2 mm thick sections. Reconstructed image s in the coronal, and sagittal plane are reviewed on the computer. No acute fractures are evident. Vertebral body alignment is normal. Mild diffuse disc space narrowing is present. Vertebral body heights are preserved. No spinal canal stenosis is evident. Spondylosis is present. Uncovertebral joint hypertrophy is present C3-4, C4-5 with moderate bilateral foraminal stenosis. C5- 6 more severe foraminal stenosis from uncovertebral joint hypertrophy is present. IMPRESSIONS: 1. Uncovertebral joint hypertrophy contributing to foraminal narrowing greatest on the left at C5-6. 2. Diffuse disc space narrowing. 3. No acute osseous abnormality.
--- NOTE | 2022-12-29 08:21 | XR ---
EXAMINATION TYPE: XR chest 1V portable DATE OF EXAM: 12/29/2022 COMPARISON: 09/28/2019 HISTORY: pain TECHNIQUE: Single frontal view of the chest is obtained. FINDINGS: Consolidation is seen bilaterally with small effusions. No pneumothorax. There is arthropa thy of the shoulders. The heart is enlarged. Suggestion of prior surgical change possibly representin g colonic pull-through procedure no pneumothorax. IMPRESSION: Bilateral infiltrate and pleural effusion. Findings are stable.
[2022-12-29] MEDS ORDERED: MORPHINE SULFATE 2 MG/ML SYRINGE IVP STA (08:35)
--- NOTE | 2022-12-29 08:38 | CT ---
EXAMINATION TYPE: CT abdomen pelvis w con DATE OF EXAM: 12/29/2022 COMPARISON: 10/04/2021 HISTORY: Fall, left side pain CT DLP: 1141.9 mGycm Automated exposure control for dose reduction was used. TECHNIQUE: Helical acquisition of images was performed from the lung bases through the pelvis. CONTRAST: Performed without Oral Contrast and with IV Contrast, patient injected with 50 mL of Isovue 370. FINDINGS: There has been interval development of a small left lung base infiltrate and a small left pleural eff usion. There is a calcified granuloma in the right lung base and mild infiltrate possibly indicating chronic interstitial changes or atelectasis. The heart is markedly enlarged. There is a small pericardial ef fusion which is significantly smaller than that seen on the prior study. There are multiple intrathoracic bowel loops consistent with a gastric pull-through procedure. This i s unchanged compared to previous. The gallbladder is not distended and there are no gallstones. The pericholecystic fluid seen on the p rior study has resolved in the interval. There is no biliary ductal dilatation. There are no focal masses within the liver, pancreas, spleen or adrenal glands. The caliber the abdominal aorta is normal and there is no retroperitoneal adenopathy or hemorrhage. There is symmetric enhancement of the kidneys bilaterally without solid renal mass. There is a tiny f leck-like calcification in the upper pole left kidney which was seen previously and a new 3.8 year ca lcification in the mid to lower pole of the left kidney. There is persistent mild prominence of the l eft renal collecting system. BE secondary to chronic hydronephrosis. However there is a tiny 1 2 mm c alcification in the region of the left UVJ which was seen previously and as stated previously could r epresent a mildly obstructing calcification. There is no right renal calcification or hydronephrosis. There is perinephric stranding around both kidneys which is stable. The bowel loops are normal in caliber is no evidence of bowel obstruction. There is no free intraperi toneal air or fluid. There is no pelvic mass or adenopathy. The osseous structures are intact. IMPRESSION: 1. No evidence of acute trauma. 2. No change in 1 to 2 mm calcification in the region of the left UVJ with mild prominence of the lef t renal collecting system. The possibility of mild hydronephrosis versus mild chronic left-sided hyd ronephrosis as described above. 3.. Interval development of an infiltrate in the left lung base with small left pleural effusion. Fin dings possibly indicate an acute pneumonia. 4. Postsurgical changes suggestive of a gastric pull-through procedure which was described previously . 5. Cardiomegaly with small pericardial effusion. The pericardial effusion has decreased significantly compared to the prior study. 6. Normal gallbladder. The pericholecystic fluid seen on the prior study has resolved in the interval .
[2022-12-29] MEDS ORDERED: NALOXONE 0.4 MG/ML 1 ML VIAL IV PRN (09:32)
[2022-12-29] MEDS ORDERED: MORPHINE SULFATE 2 MG/ML SYRINGE IV PRN (09:32)
[2022-12-29] MEDS: SODIUM CHLORIDE 0.9% 1,000 ML IV SCH (10:31)
[2022-12-29] MEDS ORDERED: traMADol 50 MG TAB PO PRN (11:35)
[2022-12-29] MEDS ORDERED: MAGNESIUM SULFATE-D5W PMX 1 GM in DEXTROSE/WATER 1 100ML.BAG IVPB ONE (11:46)
--- NOTE | 2022-12-29 11:46 | P.HPIM ---
History of Present Illness 77-year-old pleasant male with history of esophageal cancer came in with nausea vomiting and the left lower quadrant 8/10 severe crampy abdominal pain and found to have a 2 mm renal calculus in the UVJ junction. Patient also found to be in acute renal failure with creatinine 1.3 and baseline around 0.579 a started on IV fluids at 75 mL per hour. Patient does have history of for uric stenosis but no history of congestive heart failure there is no echo cardiac M available at this time in the system. Patient denied any chest pain, EKG showed ST-T wave changes in the septal leads. Chest x-ray did show bilateral pleural effusions CT of the abdomen as mentioned above along with the bilateral pleural effusions although there is no infiltrate that is consistent with pneumonia. Patient doesn't have any fever or leukocytosis at this time urine analysis is not available at this time and will be ordered. REVIEW OF SYSTEMS: CONSTITUTIONAL: No fever, no malaise, no fatigue. HEENT: No recent visual problems or hearing problems. Denied any sore throat. CARDIOVASCULAR: No chest pain, orthopnea, PND, no palpitations, no syncope. PULMONARY: No shortness of breath, no cough, no hemoptysis. GASTROINTESTINAL: As mentioned in HPI NEUROLOGICAL: No headaches, no weakness, no numbness. HEMATOLOGICAL: Denies any bleeding or petechiae. GENITOURINARY: Denies any burning micturition, frequency, or urgency. MUSCULOSKELETAL/RHEUMATOLOGICAL: Denies any joint pain, swelling, or any muscle pain. ENDOCRINE: Denies any polyuria or polydipsia. The rest of the 14-point review of systems is negative. PHYSICAL EXAMINATION: GENERAL: The patient is alert and oriented x3, not in any acute distress. Well developed, well nourished. HEENT: Pupils are round and equally reacting to light. EOMI. No scleral icterus. No conjunctival pallor. Normocephalic, atraumatic. No pharyngeal erythema. No thyromegaly. CARDIOVASCULAR: S1 and S2 present. No murmurs, rubs, or gallops. PULMONARY: Chest is clear to auscultation, no wheezing or crackles. ABDOMEN: Soft, nontender, nondistended, normoactive bowel sounds. No palpable organomegaly. MUSCULOSKELETAL: No joint swelling or deformity. EXTREMITIES: No cyanosis, clubbing, or pedal edema. NEUROLOGICAL: Gross neurological examination did not reveal any focal deficits. SKIN: No rashes. Assessment and plan -Acute renal failure: Secondary to severe nausea vomiting which is again secondary to renal calculi patient is on IV fluids which will be continued will obtain a BNP considering his bilateral pleural effusions although clinically patient doesn't appear to be in CHF exacerbation. -Left-sided renal calculi, UTI cannot be ruled out patient doesn't have symptoms of dysuria urine analysis with culture will be obtained patient will be medically started on antibiotics and if urine is not impressive. Antibiotics at the time. -Hypomagnesemia magnesium will be replaced -Valvular atrial fibrillation history patient is presently not in A. fib sinus rhythm patient has suprapubic INR on Coumadin hold off on Coumadin. 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 "ENLARGED HEART VALVES" PER PATIENT. HX OF PROSTATE CANCER WITH SURGERY, HX OF THROAT CANCER WITH SURGERY (2016), LOW IRON. BILATERAL HEARING AIDS. History of Any Multi-Drug Resistant Organisms: None Reported Past Surgical History: Orthopedic Surgery, Prostate Surgery Additional Past Surgical History / Comment(s): RIGHT SHOULDER X2, EGD'S, COLONOSCOPIES, MICAH CATARACTS, PATIENT STATES ESOPHAGUS REMOVED AND STOMACH USED. PROSTATE SX FOR CANCER Past Anesthesia/Blood Transfusion Reactions: No Reported Reaction Past Psychological History: No Psychological Hx Reported Smoking Status: Never smoker Past Alcohol Use History: None Reported Past Drug Use History: None Reported - Past Family History Sister(s) Family Medical History: Cancer Additional Family Medical History / Comment(s): AT 13 YRS OF AGE. Medications and Allergies Home Medications Medication Instructions Recorded Confirmed Type Losartan [Cozaar] 50 mg PO BID 05/25/18 12/29/22 History Omeprazole 20 mg PO W/SUPPER 05/25/18 12/29/22 History Multivitamins, Thera [Multivitamin 1 tab PO DAILY@1200 09/26/19 12/29/22 History (formulary)] Aspirin 81 mg PO HS 10/04/21 12/29/22 History Cholecalciferol [Vitamin D3 (25 25 mcg PO DAILY 10/04/21 12/29/22 History Mcg = 1000 Iu)] Cyanocobalamin (Vitamin B-12) 1,000 mcg PO DAILY 10/04/21 12/29/22 History [Vitamin B-12] Ferrous Sulfate [Feosol] 325 mg PO BID@1700,2100 10/04/21 12/29/22 History Warfarin [Coumadin] 7.5 mg PO SUMOWEFRSA 10/04/21 12/29/22 History carvediloL [Coreg] 6.25 mg PO BID-W/MEALS 10/04/21 12/29/22 History Pioglitazone [Actos] 15 mg PO DAILY 07/03/22 12/29/22 History rOPINIRole HCL [Requip] 0.5 mg PO HS 07/03/22 12/29/22 History Atorvastatin [Lipitor] 40 mg PO W/SUPPER 11/25/22 12/29/22 History Carboxymethylcellulose Sodium 1 drop LEFT EYE DAILY 11/25/22 12/29/22 History [Thera Tears] Cetirizine HCl [Zyrtec] 10 mg PO DAILY 11/25/22 12/29/22 History Latanoprost/Pf [Latanoprost 0.005% 1 drop RIGHT EYE HS 11/25/22 12/29/22 History Eye Drop] Warfarin [Coumadin] 5 mg PO TUTH 11/25/22 12/29/22 History Ondansetron Odt [Zofran Odt] 4 mg PO Q8HR PRN #6 tab 12/27/22 12/29/22 Rx Tamsulosin [Flomax] 0.4 mg PO DAILY 7 Days #7 cap 12/27/22 12/29/22 Rx Allergies Allergy/AdvReac Type Severity Reaction Status Date / Time bee venom protein (honey bee) Allergy Severe Anaphylaxis Verified 12/29/22 10:03 latex Allergy Unknown Rash/Hives Verified 12/29/22 10:03 adhesive tape Allergy Unknown-Per Verified 12/29/22 10:03 Dr Dickens's office Physical Exam Vitals: Vital Signs Temp Pulse Resp BP Pulse Ox 12/29/22 11:09 62 18 90/56 99 12/29/22 09:22 82 18 90/57 92 L 12/29/22 08:01 99.1 F 71 19 97/65 92 L 12/29/22 05:29 99.4 F 66 22 119/57 92 L Intake and Output 12/28/22 12/29/22 12/29/22 22:59 06:59 14:59 Other: Weight 77.111 kg Results CBC & Chem 7: 12/29/22 05:29 12/29/22 05:29 Labs: Abnormal Lab Results - Last 24 Hours (Table) 12/29/22 12/29/22 12/29/22 Range/Units 05:29 05:29 05:29 RBC 4.08 L (4.30-5.90) m/uL MCV 100.2 H (80.0-100.0) fL Plt Count 138 L (150-450) k/uL Neutrophils # (Manual) 9.10 H (1.3-7.7) k/uL Lymphocytes # (Manual) 0.19 L (1.0-4.8) k/uL PT (9.0-12.0) sec INR (<1.2) BUN 21 H (9-20) mg/dL Creatinine 1.39 H (0.66-1.25) mg/dL Glucose 108 H (74-99) mg/dL Calcium 8.2 L (8.4-10.2) mg/dL Total Bilirubin 1.5 H (0.2-1.3) mg/dL AST 64 H (17-59) U/L Troponin I 0.579 H* (0.000-0.034) ng/mL Total Protein 6.2 L (6.3-8.2) g/dL Albumin 3.0 L (3.5-5.0) g/dL 12/29/22 Range/Units 05:29 RBC (4.30-5.90) m/uL MCV (80.0-100.0) fL Plt Count (150-450) k/uL Neutrophils # (Manual) (1.3-7.7) k/uL Lymphocytes # (Manual) (1.0-4.8) k/uL PT 52.7 H (9.0-12.0) sec INR 5.3 H* (<1.2) BUN (9-20) mg/dL Creatinine (0.66-1.25) mg/dL Glucose (74-99) mg/dL Calcium (8.4-10.2) mg/dL Total Bilirubin (0.2-1.3) mg/dL AST (17-59) U/L Troponin I (0.000-0.034) ng/mL Total Protein (6.3-8.2) g/dL Albumin (3.5-5.0) g/dL
[2022-12-29 12:40] LABS: Glucose,Whole Blood 93 mg/dL (70-110)
[2022-12-29] MEDS: INSULIN ASPART (NovoLOG) 100 UNIT/ML VIAL SQ SCH ×3 (12:47→21:38)
[2022-12-29] MEDS ORDERED: FUROSEMIDE 10 MG/ML 4 ML VIAL IV STA (12:52)
--- NOTE | 2022-12-29 13:43 | P.CRDCN ---
History of Present Illness History of present illness: HISTORY OF PRESENT ILLNESS: This is a 77-year-old male with a past medical history significant for aortic stenosis, hypertension, hyperlipidemia, COPD, esophageal cancer, diabetes, and pericardial effusion with pericardial window performed at [facility]. Patient follows with a chemical instrumentation officer out of [facility]. We have been asked to see the patient in consultation for elevated troponins. Patient examined at the bedside in the emergency room. Patient's spouse is present and providing a majority of the history. She states that the patient was at home and was standing up to go to the bathroom when he began to feel dizzy and stated that the room started to feel like it was spinning. He then sustained a fall and was brought to the emergency room for further evaluation. The patient denies any chest pain or pressure. He reports mild shortness of breath. The patients family member states the patient recently underwent cardiac MRI but she is unsure of why this was ordered. She is unsure of the results. * EKG reveals atrial fibrillation with controlled ventricular rate * Chest xray bilateral infiltrate and small pleural effusions. Heart is enla rged. * Laboratory data: WBC 9.3. Hemoglobin 13.3. Platelet count 138. INR 5.3. Sodium 138. Potassium 3.7. BUN 21. Creatinine 1.39. Troponin 0.579. 0.866. ProBNP 30,700. * Current home cardiac medications include aspirin 81 mg at night, Lipitor 40 mg with dinner, losartan 50 mg twice a day, carvedilol 6.25 mg twice a day, warfarin 5 mg Thursday and and 7.5 mg Thursday and Thursday * Most recent echocardiogram obtained in August 2019 revealed ejection fraction 55-60%, mild aortic regurgitation, moderate aortic valve sclerosis, mild MR, mild TR REVIEW OF SYSTEMS: At the time of my exam: CONSTITUTIONAL: Denies fever or chills. HEENT: Denies blurred vision, vision changes, or eye pain. Denies hemoptysis CARDIOVASCULAR: Denies chest pain. Denies orthopnea. Denies PND. Denies palpitations RESPIRATORY: Denies shortness of breath. GASTROINTESTINAL: Denies abdominal pain. Denies nausea or vomiting. HEMATOLOGIC: Denies bleeding disorders. GENITOURINARY: Denies any blood in urine. SKIN: Denies pruitis. Denies rash. PHYSICAL EXAM: VITAL SIGNS: Reviewed. GENERAL: Well-developed in no acute distress. HEENT: Head is normocephalic. Pupils are equal, round. Sclerae anicteric. Mucous membranes of the mouth are moist. Neck supple. No JVD or thyromegaly LUNGS: Respirations even and unlabored. Lungs essentially clear to auscultation bilaterally. HEART: Irregular rate and rhythm. S1 and S2 heard. Systolic murmur noted ABDOMEN: Soft. Nondistended. Nontender. EXTREMITIES: Normal range of motion. No clubbing or cyanosis. Peripheral pulses intact. 1+ lower extremity edema NEUROLOGIC: Awake and alert. Oriented x 3. ASSESSMENT: Dizziness Status post fall Abdominal pain Mild acute congestive heart failure, BNP 30,700, although clinically not significantly volume overloaded History of pericardial effusion with recent pericardial window, performed at [facility] Persistent atrial fibrillation with controlled ventricular rate Supratherapeutic INR, INR 5.3 on admission Acute renal failure Left renal calculi Abnormal troponins, suspect secondary to type II IA, no evidence of acute coronary syndrome Valvular heart disease including aortic stenosis Hypertension Hyperlipidemia COPD History of esophageal cancer Diabetes PLAN: Obtain 2-D echo to assess cardiac structure and function Give 1 dose of IV Lasix 40 mg and monitor response Resume home cardiac medications Hold Coumadin secondary to supratherapeutic INR. Continue to monitor INR daily Obtain records from patient's primary chemical instrumentation officer and also from [facility] Nurse practitioner note has been reviewed by physician. Signing provider agrees with the documented findings, assessment, and plan of care. 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 "ENLARGED HEART VALVES" PER PATIENT. HX OF PROSTATE CANCER WITH SURGERY, HX OF THROAT CANCER WITH SURGERY (2016), LOW IRON. BILATERAL HEARING AIDS. History of Any Multi-Drug Resistant Organisms: None Reported Past Surgical History: Orthopedic Surgery, Prostate Surgery Additional Past Surgical History / Comment(s): RIGHT SHOULDER X2, EGD'S, COLONOSCOPIES, MICAH CATARACTS, PATIENT STATES ESOPHAGUS REMOVED AND STOMACH USED. PROSTATE SX FOR CANCER Past Anesthesia/Blood Transfusion Reactions: No Reported Reaction Past Psychological History: No Psychological Hx Reported Smoking Status: Never smoker Past Alcohol Use History: None Reported Past Drug Use History: None Reported - Past Family History Sister(s) Family Medical History: Cancer Additional Family Medical History / Comment(s): AT 13 YRS OF AGE. Medications and Allergies Home Medications Medication Instructions Recorded Confirmed Type Losartan [Cozaar] 50 mg PO BID 05/25/18 12/29/22 History Omeprazole 20 mg PO W/SUPPER 05/25/18 12/29/22 History Multivitamins, Thera [Multivitamin 1 tab PO DAILY@1200 09/26/19 12/29/22 History (formulary)] Aspirin 81 mg PO HS 10/04/21 12/29/22 History Cholecalciferol [Vitamin D3 (25 25 mcg PO DAILY 10/04/21 12/29/22 History Mcg = 1000 Iu)] Cyanocobalamin (Vitamin B-12) 1,000 mcg PO DAILY 10/04/21 12/29/22 History [Vitamin B-12] Ferrous Sulfate [Feosol] 325 mg PO BID@1700,2100 10/04/21 12/29/22 History Warfarin [Coumadin] 7.5 mg PO SUMOWEFRSA 10/04/21 12/29/22 History carvediloL [Coreg] 6.25 mg PO BID-W/MEALS 10/04/21 12/29/22 History Pioglitazone [Actos] 15 mg PO DAILY 07/03/22 12/29/22 History rOPINIRole HCL [Requip] 0.5 mg PO HS 07/03/22 12/29/22 History Atorvastatin [Lipitor] 40 mg PO W/SUPPER 11/25/22 12/29/22 History Carboxymethylcellulose Sodium 1 drop LEFT EYE DAILY 11/25/22 12/29/22 History [Thera Tears] Cetirizine HCl [Zyrtec] 10 mg PO DAILY 11/25/22 12/29/22 History Latanoprost/Pf [Latanoprost 0.005% 1 drop RIGHT EYE HS 11/25/22 12/29/22 History Eye Drop] Warfarin [Coumadin] 5 mg PO TUTH 11/25/22 12/29/22 History Ondansetron Odt [Zofran Odt] 4 mg PO Q8HR PRN #6 tab 12/27/22 12/29/22 Rx Tamsulosin [Flomax] 0.4 mg PO DAILY 7 Days #7 cap 12/27/22 12/29/22 Rx Allergies Allergy/AdvReac Type Severity Reaction Status Date / Time bee venom protein (honey bee) Allergy Severe Anaphylaxis Verified 12/29/22 10:03 latex Allergy Unknown Rash/Hives Verified 12/29/22 10:03 adhesive tape Allergy Unknown-Per Verified 12/29/22 10:03 Dr Dickens's office Physical Exam Vitals: Vital Signs Temp Pulse Resp BP Pulse Ox 12/29/22 11:09 62 18 90/56 99 12/29/22 09:22 82 18 90/57 92 L 12/29/22 08:01 99.1 F 71 19 97/65 92 L 12/29/22 05:29 99.4 F 66 22 119/57 92 L Intake and Output 12/28/22 12/29/22 12/29/22 22:59 06:59 14:59 Other: Weight 77.111 kg Results 12/29/22 05:29 12/29/22 05:29 Cardiac Enzymes 12/29/22 12/29/22 12/29/22 Range/Units 05:29 05:29 11:14 AST 64 H (17-59) U/L Troponin I 0.579 H* 0.866 H* (0.000-0.034) ng/mL Coagulation 12/29/22 Range/Units 05:29 PT 52.7 H (9.0-12.0) sec APTT 25.7 (22.0-30.0) sec CBC 12/29/22 Range/Units 05:29 WBC 9.3 (3.8-10.6) k/uL RBC 4.08 L (4.30-5.90) m/uL Hgb 13.3 (13.0-17.5) gm/dL Hct 40.9 (39.0-53.0) % Plt Count 138 L (150-450) k/uL Comprehensive Metabolic Panel 12/29/22 Range/Units 05:29 Sodium 138 (137-145) mmol/L Potassium 3.7 (3.5-5.1) mmol/L Chloride 104 (98-107) mmol/L Carbon Dioxide 23 (22-30) mmol/L BUN 21 H (9-20) mg/dL Creatinine 1.39 H (0.66-1.25) mg/dL Glucose 108 H (74-99) mg/dL Calcium 8.2 L (8.4-10.2) mg/dL AST 64 H (17-59) U/L ALT 47 (4-49) U/L Alkaline Phosphatase 126 (38-126) U/L Total Protein 6.2 L (6.3-8.2) g/dL Albumin 3.0 L (3.5-5.0) g/dL Current Medications Generic Name Dose Route Start Last Admin Trade Name Freq PRN Reason Stop Dose Admin Artificial Tears 1 drops 12/30/22 09:00 Artificial Tears-Hypromellose Drops 15 Ml Btl LEFT EYE DAILY [facility] Aspirin 81 mg 12/29/22 21:00 Aspirin 81 Mg PO HS [facility] Atorvastatin Calcium 40 mg 12/29/22 17:30 Atorvastatin 40 Mg Tab PO W/SUPPER [facility] Famotidine 20 mg 12/29/22 21:00 Famotidine 20 Mg/2 Ml Vial IV HS [facility] Sodium Chloride 1,000 mls @ 75 mls/hr 12/29/22 09:45 12/29/22 10:31 Saline 0.9% IV 75 mls/hr .[id number] [facility] Administration Ceftriaxone Sodium 1 gm/ 50 mls @ 100 mls/hr 12/29/22 11:45 12/29/22 12:04 Sodium Chloride IVPB 100 mls/hr Q24HR [facility] Administration Protocol Insulin Aspart 0 unit 12/29/22 12:30 Insulin Aspart (Novolog) 100 Unit/Ml Vial SQ ACHS [facility] Protocol Latanoprost 1 drops 12/29/22 21:00 Latanoprost 0.005% Ophth Drops 2.5 Ml Btl RIGHT EYE HS [facility] Loratadine 10 mg 12/30/22 09:00 Loratadine 10 Mg Tab PO DAILY [facility] Morphine Sulfate 2 mg 12/29/22 09:32 Morphine Sulfate 2 Mg/Ml Syringe IV Q4HR PRN Severe Pain (Scale 7 to 10) Naloxone HCl 0.2 mg 12/29/22 09:32 Naloxone 0.4 Mg/Ml 1 Ml Vial IV Q2M PRN Opioid Reversal Ondansetron HCl 4 mg 12/29/22 09:32 Ondansetron 4 Mg/2 Ml Vial IVP Q8HR PRN Nausea And Vomiting Ropinirole HCl 0.5 mg 12/29/22 21:00 Ropinirole Hcl 0.25 Mg Tab PO HS [facility] Tamsulosin HCl 0.4 mg 12/30/22 09:00 Tamsulosin 0.4 Mg Cap.Er.24h PO DAILY [facility] Tramadol HCl 50 mg 12/29/22 11:35 Tramadol 50 Mg Tab PO QID PRN Pain/Discomfort Intake and Output 12/28/22 12/29/22 12/29/22 22:59 06:59 14:59 Other: Weight 77.111 kg 12/29/22 05:29 12/29/22 05:29
[2022-12-29] MEDS ORDERED: ACETAMINOPHEN TAB 325 MG TAB PO STA (17:23)
[2022-12-29] MEDS: ATORVASTATIN 40 MG TAB PO SCH (18:26)
[2022-12-29 18:29] LABS: Glucose,Whole Blood 116 mg/dL (70-110)
[2022-12-29] MEDS ORDERED: SODIUM CHLORIDE 0.9% 500 ML 500 ML IV ONE ×3 (18:58→20:50)
[2022-12-29] MEDS: MIDODRINE 5 MG TAB PO SCH (20:00)
[2022-12-29 22:18] LABS: HCT 33.5 % (39.0-53.0); HGB 10.7 gm/dL (13.0-17.5); Hypochromasia Slight; MCV 102.9 fL (80.0-100.0); Macrocytosis Slight; Mean Platelet Volume 8.7; RBC 3.26 m/uL (4.30-5.90); RDW 14.5 % (11.5-15.5); WBC 25.2 k/uL (3.8-10.6)
[2022-12-29] MEDS: FAMOTIDINE 20 MG/2 ML VIAL IV SCH (22:26)
[2022-12-29] MEDS: LATANOPROST 0.005% OPHTH DROPS 2.5 ML BTL RIGHT EYE SCH (22:26)
[2022-12-29] MEDS: ASPIRIN 81 MG PO SCH (22:26)
[2022-12-29 22:45] LABS: Calcium 7.1 mg/dL (8.4-10.2)
[2022-12-29] MEDS ORDERED: POTASSIUM CHLORIDE ER 10 MEQ TAB.ER.PRT PO STA (22:51)
[2022-12-29 23:23] LABS: Glucose,Whole Blood 94 mg/dL (70-110)
[2022-12-29] MEDS: NOREPINEPHRINE 4 MG in SODIUM CHLORIDE 0.9% 250 ML IV SCH (23:52)
[2022-12-30 00:08] LABS: Platelet Count 94 k/uL (150-450)
[2022-12-30] MEDS: SODIUM CHLORIDE 0.9% 1,000 ML IV SCH ×3 (00:17→19:45)
[2022-12-30] MEDS: PIPERACILLIN-TAZOBACTAM 3.375 GM in SODIUM CHLORIDE 0.9% 100 ML IVPB SCH ×2 (00:18→08:14)
[2022-12-30] MEDS ORDERED: NALOXONE 0.4 MG/ML 1 ML VIAL IV PRN (00:59)
[2022-12-30 01:17] LABS: Appearance,Urine Cloudy (Clear); Bacteria,Urine Many /hpf; Bilirubin,Urine Negative (Negative); Blood,Urine Large (Negative); Color,Urine Light Red; Glucose,Urine (UA) Negative (Negative); Ketones,Urine Negative (Negative); Leukocyte Esterase,Urine Large (Negative); Mucus,Urine Rare /hpf; Nitrite,Urine Negative (Negative); PH, Urine 5.5 (5.0-8.0); Protein,Urine 1+ (Negative); RBC,Urine >182 /hpf (0-5); Specific Gravity,Urine 1.035 (1.001-1.035); Squamous Epithelial Cell,Urine 1 /hpf (0-4); WBC,Urine 78 /hpf (0-5)
--- NOTE | 2022-12-30 02:56 | P.CNPUL ---
History of Present Illness Consult date: 12/30/22 Requesting physician: Brayden Griffin Reason for consult: other (ICU management) Chief complaint: Fall History of present illness: I'm seeing this patient in new consultation today 12/30/2022 in the intensive care unit after being found to be hypotensive on the cardiac stepdown unit. Patient is a 77-year-old white male with past medical history significant for pericardial effusion status post cardiac window at [facility] approximately 2 weeks ago, atrial fibrillation, COPD, diabetes mellitus, GERD, hyperlipidemia, hypertension, history of esophageal CA status post surgery. Patient presented to the emergency room on 12/29/2022 after experiencing a fall at home. The patient reports that when he got up out of the recliner, the room started spinning, and he fell into another chair and the fireplace. Patient denies hitting his head. He is on anticoagulants for his history of A. fib. CT of brain and C-spine without contrast showed no acute intracranial process or fracture. He does admit to some intractable nausea and vomiting while at home. He did have a recent ER visit for left-sided abdominal pain, which was attributed to his known kidney stone. On arrival to the ER, a follow up CT of abdomen and pelvis with contrast showed no evidence of intra-abdominal trauma, stable 1-2 mm calcification in the region of the left UVJ with mild prominence of the left renal collecting system. There was possibility of mild left hydronephrosis. There was also development of a left basilar lung infiltrate with small left pleural effusion, and some cardiomegaly with small pericardial effusion which is smaller compared to previous study. Chest x-ray showed bilateral lower lobe infiltrates and small bibasilar effusions with cardiomegaly. The patient was admitted to the cardiac stepdown unit. Last night, the patient became hypotensive, and was fluid resuscitated with 2.5 L of normal saline. He was ultimately transferred to the intensive care unit, and a norepinephrine infusion was started. The patient is resting in bed, on 2 L nasal cannula, in no acute distress. He is normotensive on a norepinephrine infusion at 0.5 mics per kilogram per minute. Normal saline is infusing at 75 mL per hour. Patient's most recent CBC shows some leukocytosis with a WBC count of 25, hemoglobin 11, hematocrit 33.5, platelets 94,000. Patient's most recent BMP shows a sodium of 135, potassium 3, chloride 104, serum CO2 19, BUN 28, creatinine 2.17, glucose 92. Patient's lactic acid level was elevated at 2.9 and is down to 2. UA shows large amount of leukocyte esterase, many bacteria, and blood. Patient has been empirically covered with Zosyn. He is afebrile. Heart rhythm is atrial fibrillation with slow ventricular response around 50-60 bpm. Troponins were elevated and most recent result is 1.08. Patient denies any chest pain. NT proBNP was elevated at 30,700. INR was supratherapeutic at 5.3. Cardiology is following. Patient will be monitored in the intensive care unit. Review of Systems REVIEW OF SYSTEMS: CONSTITUTIONAL: Denies any recent significant weight loss or weight gain, fevers EYES: Denies change in vision. EARS, NOSE, MOUTH, THROAT: Denies headaches, denies sore throat. CARDIOVASCULAR: Denies chest pain, palpitations or syncopal episodes. Admits orthopnea, and sleeps in a recliner at home RESPIRATORY: Denies congestion or hemoptysis. He does report some shortness of breath and productive cough with yellow sputum production GASTROINTESTINAL: Admits some recent nausea, vomiting, left lower abdominal pain. Denies bloody stools or hematemesis GENITOURINARY: Denies hematuria, denies infections. MUSKULOSKELETAL: Denies pain, denies swelling. INTEGUMENTARY: Denies rash, denies eczema. NEUROLOGICAL: Denies recent memory loss, no recent seizure activity. PSYCHIATRIC: Denies anxiety, denies depression. HEMATOLOGIC/LYMPHATIC: Denies anemia, denies enlarged lymph node Past Medical History Past Medical History: Cancer, COPD, Diabetes Mellitus, GERD/Reflux, Hearing Disorder / Deafness, Hyperlipidemia, Hypertension, Prostate Disorder Additional Past Medical History / Comment(s): COPD WITH SOB (NO RX)-( [employer] FOR 45 YEARS). "ENLARGED HEART VALVES" PER PATIENT. HX OF PROSTATE CANCER WITH SURGERY, HX OF THROAT CANCER WITH SURGERY (2016), LOW IRON. BILATERAL HEARING AIDS. History of Any Multi-Drug Resistant Organisms: None Reported Past Surgical History: Orthopedic Surgery, Prostate Surgery Additional Past Surgical History / Comment(s): RIGHT SHOULDER X2, EGD'S, COLONOSCOPIES, MICAH CATARACTS, PATIENT STATES ESOPHAGUS REMOVED AND STOMACH USED. PROSTATE SX FOR CANCER Past Anesthesia/Blood Transfusion Reactions: No Reported Reaction Past Psychological History: No Psychological Hx Reported Smoking Status: Never smoker Past Alcohol Use History: None Reported Additional Past Alcohol Use History / Comment(s): [employer] FOR 45 YEARS Past Drug Use History: None Reported - Past Family History Sister(s) Family Medical History: Cancer Additional Family Medical History / Comment(s): AT 13 YRS OF AGE. Medications and Allergies Home Medications Medication Instructions Recorded Confirmed Type Losartan [Cozaar] 50 mg PO BID 05/25/18 12/29/22 History Omeprazole 20 mg PO W/SUPPER 05/25/18 12/29/22 History Multivitamins, Thera [Multivitamin 1 tab PO DAILY@1200 09/26/19 12/29/22 History (formulary)] Aspirin 81 mg PO HS 10/04/21 12/29/22 History Cholecalciferol [Vitamin D3 (25 25 mcg PO DAILY 10/04/21 12/29/22 History Mcg = 1000 Iu)] Cyanocobalamin (Vitamin B-12) 1,000 mcg PO DAILY 10/04/21 12/29/22 History [Vitamin B-12] Ferrous Sulfate [Feosol] 325 mg PO BID@1700,2100 10/04/21 12/29/22 History Warfarin [Coumadin] 7.5 mg PO SUMOWEFRSA 10/04/21 12/29/22 History carvediloL [Coreg] 6.25 mg PO BID-W/MEALS 10/04/21 12/29/22 History Pioglitazone [Actos] 15 mg PO DAILY 07/03/22 12/29/22 History rOPINIRole HCL [Requip] 0.5 mg PO HS 07/03/22 12/29/22 History Atorvastatin [Lipitor] 40 mg PO W/SUPPER 11/25/22 12/29/22 History Carboxymethylcellulose Sodium 1 drop LEFT EYE DAILY 11/25/22 12/29/22 History [Thera Tears] Cetirizine HCl [Zyrtec] 10 mg PO DAILY 11/25/22 12/29/22 History Latanoprost/Pf [Latanoprost 0.005% 1 drop RIGHT EYE HS 11/25/22 12/29/22 History Eye Drop] Warfarin [Coumadin] 5 mg PO TUTH 11/25/22 12/29/22 History Ondansetron Odt [Zofran Odt] 4 mg PO Q8HR PRN #6 tab 12/27/22 12/29/22 Rx Tamsulosin [Flomax] 0.4 mg PO DAILY 7 Days #7 cap 12/27/22 12/29/22 Rx Allergies Allergy/AdvReac Type Severity Reaction Status Date / Time bee venom protein (honey bee) Allergy Severe Anaphylaxis Verified 12/29/22 10:03 latex Allergy Unknown Rash/Hives Verified 12/29/22 10:03 adhesive tape Allergy Unknown-Per Verified 12/29/22 10:03 Dr Dickens's office Physical Exam Vitals: Vital Signs Temp Pulse Pulse Resp BP BP BP 12/30/22 01:30 53 L 17 85/55 12/30/22 01:15 62 23 89/53 12/30/22 01:00 55 L 18 80/59 12/30/22 00:45 61 22 93/66 12/30/22 00:30 61 25 H 84/57 12/30/22 00:15 55 L 23 87/58 12/30/22 00:06 61 24 84/56 12/30/22 00:00 54 L 23 80/53 12/29/22 23:50 97.9 F 53 L 22 79/51 12/29/22 23:40 51 L 24 73/52 12/29/22 23:30 59 L 13 76/54 12/29/22 23:24 56 L 23 12/29/22 22:45 61 73/39 12/29/22 22:00 69/48 12/29/22 21:00 70/50 12/29/22 20:30 59 L 70/44 12/29/22 20:00 58 L 61/47 12/29/22 19:50 98.0 F 60 16 80/44 72/47 12/29/22 18:28 98.4 F 18 70/49 81/44 12/29/22 17:28 102.3 F H 66 19 94/51 12/29/22 14:14 64 18 117/71 12/29/22 11:09 62 18 90/56 12/29/22 09:22 82 18 90/57 12/29/22 08:01 99.1 F 71 19 97/65 12/29/22 05:29 99.4 F 66 22 119/57 Pulse Ox 05/16/23 01:30 96 12/30/22 01:15 97 12/30/22 01:00 97 12/30/22 00:45 95 12/30/22 00:30 94 L 12/30/22 00:15 96 12/30/22 00:06 95 12/30/22 00:00 95 12/29/22 23:50 95 12/29/22 23:40 94 L 12/29/22 23:30 94 L 12/29/22 23:24 95 12/29/22 22:45 12/29/22 22:00 12/29/22 21:00 12/29/22 20:30 12/29/22 20:00 12/29/22 19:50 97 12/29/22 18:28 12/29/22 17:28 96 12/29/22 14:14 92 L 12/29/22 11:09 99 12/29/22 09:22 92 L 12/29/22 08:01 92 L 12/29/22 05:29 92 L Intake and Output 12/29/22 12/29/22 12/30/22 14:59 22:59 06:59 Intake Total 10 253.820 Output Total 100 80 Balance -90 173.820 Intake: IV 10 150 Invasive Line 1 10 Sodium Chloride 0.9% 1, 150 000 ml @ 75 mls/hr IV . [id number] RENETTA Rx#:[id number] Intake, IV Titration 103.820 Amount Norepinephrine 4 mg In 3.820 Sodium Chloride 0.9% 250 ml @ 0.03 MCG/KG/MIN 8. 814 mls/hr IV .Q24H RENETTA Rx#:[id number] Piperacillin-Tazobactam 3 100 .375 gm In Sodium Chloride 0.9% 100 ml @ 25 mls/hr IVPB Q8H RENETTA Rx#: [id number] Output: Urine 100 80 Other: Weight 77.111 kg GENERAL EXAM: Alert, 77-year-old white male , comfortable in no apparent distres s. HEAD: Normocephalic and atraumatic EYES: Normal reaction of pupils, equal size. NOSE: Clear with pink turbinates. THROAT: No erythema or exudates. NECK: No masses, no JVD. CHEST: No chest wall deformity. LUNGS: Equal air entry with scattered bibasilar crackles. no wheeze, rhonchi or dullness. On 2 L nasal cannula. No conversational dyspnea or accessory muscle use.. CVS: S1 and S2 normal with a soft systolic ejection murmur heard best at the left sternal border, irregular rhythm. No other extra heart sounds. Heart rate currently 58 bpm ABDOMEN: No hepatosplenomegaly, active bowel sounds, no guarding or rigidity. SPINE: No scoliosis or deformity SKIN: No rashes CENTRAL NERVOUS SYSTEM: No focal deficits, tone is normal in all 4 extremities. EXTREMITIES: There is mild nonpitting lower extremity peripheral edema. No clubbing, or cyanosis. Peripheral pulses are intact. Results - Laboratory Findings CBC and BMP: 12/29/22 21:54 12/29/22 21:54 PT/INR, D-dimer PT 52.7 sec (9.0-12.0) H 12/29/22 05: INR 5.3 (<1.2) H* 12/29/22 05:29 Abnormal lab findings: Abnormal Labs 12/29/22 12/29/22 12/29/22 05:29 05:29 05:29 WBC RBC 4.08 L Hgb Hct MCV 100.2 H Plt Count 138 L Neutrophils # (Manual) 9.10 H Lymphocytes # (Manual) 0.19 L PT INR Sodium Potassium Carbon Dioxide BUN 21 H Creatinine 1.39 H Glucose 108 H POC Glucose (mg/dL) Plasma Lactic Acid Arturo Calcium 8.2 L Total Bilirubin 1.5 H AST 64 H Troponin I 0.579 H* Total Protein 6.2 L Albumin 3.0 L Urine Protein Urine Blood Ur Leukocyte Esterase Urine RBC Urine WBC Urine WBC Clumps Urine Bacteria Urine Mucus 12/29/22 12/29/22 12/29/22 05:29 11:14 15:03 WBC RBC Hgb Hct MCV Plt Count Neutrophils # (Manual) Lymphocytes # (Manual) PT 52.7 H INR 5.3 H* Sodium Potassium Carbon Dioxide BUN Creatinine Glucose POC Glucose (mg/dL) Plasma Lactic Acid Arturo Calcium Total Bilirubin AST Troponin I 0.866 H* 1.080 H* Total Protein Albumin Urine Protein Urine Blood Ur Leukocyte Esterase Urine RBC Urine WBC Urine WBC Clumps Urine Bacteria Urine Mucus 12/29/22 12/29/22 12/29/22 18:26 21:54 21:54 WBC 25.2 H RBC 3.26 L Hgb 10.7 L Hct 33.5 L MCV 102.9 H Plt Count 94 L Neutrophils # (Manual) Lymphocytes # (Manual) PT INR Sodium 135 L Potassium 3.0 L Carbon Dioxide 19 L BUN 28 H Creatinine 2.17 H Glucose POC Glucose (mg/dL) 116 H Plasma Lactic Acid Arturo Calcium 7.1 L Total Bilirubin AST Troponin I Total Protein Albumin Urine Protein Urine Blood Ur Leukocyte Esterase Urine RBC Urine WBC Urine WBC Clumps Urine Bacteria Urine Mucus 12/29/22 12/29/22 21:54 23:47 WBC RBC Hgb Hct MCV Plt Count Neutrophils # (Manual) Lymphocytes # (Manual) PT INR Sodium Potassium Carbon Dioxide BUN Creatinine Glucose POC Glucose (mg/dL) Plasma Lactic Acid Arturo 2.9 H* Calcium Total Bilirubin AST Troponin I Total Protein Albumin Urine Protein 1+ H Urine Blood Large H Ur Leukocyte Esterase Large H Urine RBC >182 H Urine WBC 78 H Urine WBC Clumps Moderate H Urine Bacteria Many H Urine Mucus Rare H - Diagnostic Findings Chest x-ray: image reviewed Assessment and Plan Assessment: Fall and near syncopal event, currently under investigation Hypotension refractory to fluid resuscitation, requiring vasopressors. Mild acute congestive heart failure. BNP was 30,700 on admission. Chest x-ray on admission showed cardiomegaly with small bilateral pleural effusions. The presence of focal consolidation and/or pneumonia is not ruled out. Acute hypoxemic respiratory failure secondary to above, currently on 2 L nasal cannula Acute kidney injury, with evidence of a 2 mm calculi at the left UVJ and evidence of possible mild left-sided hydronephrosis Atrial fibrillation with controlled ventricular rate Supratherapeutic INR at 5.3 on admission, admitted on hold Lactic acidemia, improved Thrombocytopenia Systolic ejection murmur Elevated troponins, possibly related to type II DC History of pericardial effusion with recent pericardial window performed at [facility] approximately 2 weeks ago Hyperlipidemia COPD History of esophageal cancer Diabetes mellitus BPH Plan: Patient's medications, labs, chest x-ray reviewed Continue supplemental oxygen to maintain oxygen saturation 92% or greater Norepinephrine infusion for refractory hypotension Midodrine was added Empiric antibiotics Blood and urine cultures ordered Echocardiogram is pending Cardiology was consulted urology was consulted Repeat labs and chest x-ray in the morning The patient will be monitored in the intensive care unit I have personally seen and examined the patient, performed the documentation and the assessment and plan as written. Number of minutes spent on the visit:20 Time with Patient: Greater than 30
[2022-12-30 03:39] LABS: HCT 34.7 % (39.0-53.0); HGB 11.1 gm/dL (13.0-17.5); Hypochromasia Moderate; MCH 34.2 pg (25.0-35.0); MCV 106.7 fL (80.0-100.0); Macrocytosis Moderate; Mean Platelet Volume 9.7; Platelet Count 85 k/uL (150-450); RBC 3.25 m/uL (4.30-5.90); RDW 14.2 % (11.5-15.5); WBC 26.7 k/uL (3.8-10.6)
[2022-12-30 04:06] LABS: Calcium 7.2 mg/dL (8.4-10.2); Magnesium 1.7 mg/dL (1.6-2.3); Potassium 3.4 mmol/L (3.5-5.1)
[2022-12-30 04:41] LABS: INR 4.4 (<1.2); Prothrombin Time 43.3 sec (9.0-12.0)
[2022-12-30 04:58] LABS: Band Neutrophils % 19 %; Metamyelocytes # (M) 0.27 k/uL (0); Metamyelocytes % 1 %; Neutrophils % (M) 75 %; Nucleated Red Blood Cells 0 /100 WBC (0-0); Total Cells Counted 200
[2022-12-30 05:03] LABS: Anisocytosis (M) Present; Poikilocytosis (M) Present
[2022-12-30 05:04] LABS: Toxic Vacuolation Present
[2022-12-30] MEDS ORDERED: Potassium Replacement Protocol 1 EACH MISC MISCELLANE PRN (05:46)
[2022-12-30] MEDS: VANCOMYCIN 125 MG CAPSULE PO SCH ×3 (06:38→17:59)
[2022-12-30] MEDS: POTASSIUM CHLORIDE ER 20 MEQ TAB.ER PO SCH ×2 (06:38→08:15)
[2022-12-30] MEDS: INSULIN ASPART (NovoLOG) 100 UNIT/ML VIAL SQ SCH ×4 (06:41→21:22)
[2022-12-30 06:42] LABS: Glucose,Whole Blood 96 mg/dL (70-110)
[2022-12-30] MEDS ORDERED: MAGNESIUM SULFATE-D5W PMX 1 GM in DEXTROSE/WATER 1 100ML.BAG IVPB ONE (07:42)
[2022-12-30] MEDS ORDERED: Magnesium Replacement Protocol 1 EACH MISC MISCELLANE PRN (07:42)
[2022-12-30] MEDS: MIDODRINE 5 MG TAB PO SCH ×3 (08:15→16:45)
[2022-12-30] MEDS: TAMSULOSIN 0.4 MG CAP.ER.24H PO SCH (08:15)
[2022-12-30] MEDS: LORATADINE 10 MG TAB PO SCH (08:15)
--- NOTE | 2022-12-30 08:29 | XR ---
EXAMINATION TYPE: XR chest 1V portable DATE OF EXAM: 12/30/2022 COMPARISON: 12/30/2022 HISTORY: Pain TECHNIQUE: Single frontal view of the chest is obtained. FINDINGS: Consolidation is seen bilaterally with small effusions. No pneumothorax. There is arthropa thy of the shoulders. The heart is enlarged. Suggestion of prior surgical change possibly representin g colonic pull-through procedure no pneumothorax. IMPRESSION: Bilateral consolidation and pleural effusion correlate for CHF otherwise consider pneumo alvin. Findings stable.
[2022-12-30] MEDS ORDERED: SODIUM CHLORIDE 0.9% 1,000 ML IV ONE (09:23)
--- NOTE | 2022-12-30 09:44 | P.GSCN ---
History of Present Illness Consult date: 12/30/22 Reason for Consult: LLQ Abdominal pain Requesting physician: Brayden E Sheet History of present illness: The patient is a 77-year-old white male with a history of urolithiasis. On 10/03/2021 he experienced acute onset of left renal colic. CT scan showed mild left hydronephrosis due to a 2 mm left UVJ calculus. The CT scan also showed a 4 x 6 mm right proximal ureteral calculus, with no right hydronephrosis. Tiny bilateral renal calculi were seen. He passed the left ureteral calculus on 10/04/2021 but continued to experience right flank pain. Therefore, on 10/17/2021 he underwent cystoscopy with right ureteroscopy and holmium laser lithotripsy. He was found to have passed his right ureteral calculus, and se veral right renal calculi were removed. The calculi were composed of calcium oxalate monohydrate. His metabolic evaluation revealed hypocitraturia, and potassium citrate was prescribed. Unfortunately, this was cost prohibitive. He now presents with left lower quadrant abdominal pain, associated with nausea and vomiting. CT scan shows mild left hydronephrosis due to a 2 mm left UVJ calculus. He has also been found to have elevated troponin levels. 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 "ENLARGED HEART VALVES" PER PATIENT. HX OF PROSTATE CANCER WITH SURGERY, HX OF THROAT CANCER WITH SURGERY (2016), LOW IRON. BILATERAL HEARING AIDS. History of Any Multi-Drug Resistant Organisms: None Reported Past Surgical History: Orthopedic Surgery, Prostate Surgery Additional Past Surgical History / Comment(s): RIGHT SHOULDER X2, EGD'S, COLONOSCOPIES, MICAH CATARACTS, PATIENT STATES ESOPHAGUS REMOVED AND STOMACH USED. 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 Medications and Allergies Home Medications Medication Instructions Recorded Confirmed Type Losartan [Cozaar] 50 mg PO BID 05/25/18 12/29/22 History Omeprazole 20 mg PO W/SUPPER 05/25/18 12/29/22 History Multivitamins, Thera [Multivitamin 1 tab PO DAILY@1200 09/26/19 12/29/22 History (formulary)] Aspirin 81 mg PO HS 10/04/21 12/29/22 History Cholecalciferol [Vitamin D3 (25 25 mcg PO DAILY 10/04/21 12/29/22 History Mcg = 1000 Iu)] Cyanocobalamin (Vitamin B-12) 1,000 mcg PO DAILY 10/04/21 12/29/22 History [Vitamin B-12] Ferrous Sulfate [Feosol] 325 mg PO BID@1700,2100 10/04/21 12/29/22 History Warfarin [Coumadin] 7.5 mg PO SUMOWEFRSA 10/04/21 12/29/22 History carvediloL [Coreg] 6.25 mg PO BID-W/MEALS 10/04/21 12/29/22 History Pioglitazone [Actos] 15 mg PO DAILY 07/03/22 12/29/22 History rOPINIRole HCL [Requip] 0.5 mg PO HS 07/03/22 12/29/22 History Atorvastatin [Lipitor] 40 mg PO W/SUPPER 11/25/22 12/29/22 History Carboxymethylcellulose Sodium 1 drop LEFT EYE DAILY 11/25/22 12/29/22 History [Thera Tears] Cetirizine HCl [Zyrtec] 10 mg PO DAILY 11/25/22 12/29/22 History Latanoprost/Pf [Latanoprost 0.005% 1 drop RIGHT EYE HS 11/25/22 12/29/22 History Eye Drop] Warfarin [Coumadin] 5 mg PO TUTH 11/25/22 12/29/22 History Ondansetron Odt [Zofran Odt] 4 mg PO Q8HR PRN #6 tab 05/13/23 05/15/23 Rx Tamsulosin [Flomax] 0.4 mg PO DAILY 7 Days #7 cap 12/27/22 12/29/22 Rx Allergies Allergy/AdvReac Type Severity Reaction Status Date / Time bee venom protein (honey bee) Allergy Severe Anaphylaxis Verified 12/29/22 10:03 latex Allergy Unknown Rash/Hives Verified 12/29/22 10:03 adhesive tape Allergy Unknown-Per Verified 12/29/22 10:03 Dr Dickens[facility] office Surgical - Exam Vital Signs Temp Pulse Resp BP Pulse Ox 99.4 F 66 22 119/57 92 L 12/29/22 05:29 12/29/22 05:29 12/29/22 05:29 12/29/22 05:29 12/29/22 05:29 - General well developed, well nourished, no distress - Respiratory normal respiratory effort - Abdomen Abdomen: soft, tender (Mild left lower quadrant tenderness), no guarding, no rigid, no rebound, no distended - Genitourinary normal penis with no external lesions, testicles non-tender - Psychiatric oriented to time, oriented to person, oriented to place, speech is normal, memory intact Results - Labs 12/30/22 01:10 12/30/22 03:18 Abnormal Lab Results - Last 24 Hours (Table) 12/29/22 12/29/22 12/29/22 Range/Units 11:14 15:03 18:26 WBC (3.8-10.6) k/uL RBC (4.30-5.90) m/uL Hgb (13.0-17.5) gm/dL Hct (39.0-53.0) % MCV (80.0-100.0) fL Plt Count (150-450) k/uL Neutrophils # (Manual) (1.3-7.7) k/uL Lymphocytes # (Manual) (1.0-4.8) k/uL Metamyelocytes # (Man) (0) k/uL PT (9.0-12.0) sec INR (<1.2) Sodium (137-145) mmol/L Potassium (3.5-5.1) mmol/L Carbon Dioxide (22-30) mmol/L BUN (9-20) mg/dL Creatinine (0.66-1.25) mg/dL Glucose (74-99) mg/dL POC Glucose (mg/dL) 116 H (70-110) mg/dL Plasma Lactic Acid Arturo (0.7-2.0) mmol/L Calcium (8.4-10.2) mg/dL Troponin I 0.866 H* 1.080 H* (0.000-0.034) ng/mL Urine Protein (Negative) Urine Blood (Negative) Ur Leukocyte Esterase (Negative) Urine RBC (0-5) /hpf Urine WBC (0-5) /hpf Urine WBC Clumps (None) /hpf Urine Bacteria (None) /hpf Urine Mucus (None) /hpf C. difficile (EIA) Intrp (Negative) 12/29/22 12/29/22 12/29/22 Range/Units 21:54 21:54 21:54 WBC 25.2 H (3.8-10.6) k/uL RBC 3.26 L (4.30-5.90) m/uL Hgb 10.7 L (13.0-17.5) gm/dL Hct 33.5 L (39.0-53.0) % MCV 102.9 H (80.0-100.0) fL Plt Count 94 L (150-450) k/uL Neutrophils # (Manual) (1.3-7.7) k/uL Lymphocytes # (Manual) (1.0-4.8) k/uL Metamyelocytes # (Man) (0) k/uL PT (9.0-12.0) sec INR (<1.2) Sodium 135 L (137-145) mmol/L Potassium 3.0 L (3.5-5.1) mmol/L Carbon Dioxide 19 L (22-30) mmol/L BUN 28 H (9-20) mg/dL Creatinine 2.17 H (0.66-1.25) mg/dL Glucose (74-99) mg/dL POC Glucose (mg/dL) (70-110) mg/dL Plasma Lactic Acid Arturo 2.9 H* (0.7-2.0) mmol/L Calcium 7.1 L (8.4-10.2) mg/dL Troponin I (0.000-0.034) ng/mL Urine Protein (Negative) Urine Blood (Negative) Ur Leukocyte Esterase (Negative) Urine RBC (0-5) /hpf Urine WBC (0-5) /hpf Urine WBC Clumps (None) /hpf Urine Bacteria (None) /hpf Urine Mucus (None) /hpf C. difficile (EIA) Intrp (Negative) 12/29/22 12/30/22 12/30/22 Range/Units 23:47 01:10 03:18 WBC 26.7 H (3.8-10.6) k/uL RBC 3.25 L (4.30-5.90) m/uL Hgb 11.1 L (13.0-17.5) gm/dL Hct 34.7 L (39.0-53.0) % MCV 106.7 H (80.0-100.0) fL Plt Count 85 L (150-450) k/uL Neutrophils # (Manual) 25.00 H (1.3-7.7) k/uL Lymphocytes # (Manual) 0.80 L (1.0-4.8) k/uL Metamyelocytes # (Man) 0.27 H (0) k/uL PT (9.0-12.0) sec INR (<1.2) Sodium 134 L (137-145) mmol/L Potassium 3.4 L (3.5-5.1) mmol/L Carbon Dioxide 17 L (22-30) mmol/L BUN 32 H (9-20) mg/dL Creatinine 2.19 H (0.66-1.25) mg/dL Glucose 104 H (74-99) mg/dL POC Glucose (mg/dL) (70-110) mg/dL Plasma Lactic Acid Arturo (0.7-2.0) mmol/L Calcium 7.2 L (8.4-10.2) mg/dL Troponin I (0.000-0.034) ng/mL Urine Protein 1+ H (Negative) Urine Blood Large H (Negative) Ur Leukocyte Esterase Large H (Negative) Urine RBC >182 H (0-5) /hpf Urine WBC 78 H (0-5) /hpf Urine WBC Clumps Moderate H (None) /hpf Urine Bacteria Many H (None) /hpf Urine Mucus Rare H (None) /hpf C. difficile (EIA) Intrp (Negative) 12/30/22 12/30/22 Range/Units 03:18 04:45 WBC (3.8-10.6) k/uL RBC (4.30-5.90) m/uL Hgb (13.0-17.5) gm/dL Hct (39.0-53.0) % MCV (80.0-100.0) fL Plt Count (150-450) k/uL Neutrophils # (Manual) (1.3-7.7) k/uL Lymphocytes # (Manual) (1.0-4.8) k/uL Metamyelocytes # (Man) (0) k/uL PT 43.3 H (9.0-12.0) sec INR 4.4 H (<1.2) Sodium (137-145) mmol/L Potassium (3.5-5.1) mmol/L Carbon Dioxide (22-30) mmol/L BUN (9-20) mg/dL Creatinine (0.66-1.25) mg/dL Glucose (74-99) mg/dL POC Glucose (mg/dL) (70-110) mg/dL Plasma Lactic Acid Arturo (0.7-2.0) mmol/L Calcium (8.4-10.2) mg/dL Troponin I (0.000-0.034) ng/mL Urine Protein (Negative) Urine Blood (Negative) Ur Leukocyte Esterase (Negative) Urine RBC (0-5) /hpf Urine WBC (0-5) /hpf Urine WBC Clumps (None) /hpf Urine Bacteria (None) /hpf Urine Mucus (None) /hpf C. difficile (EIA) Intrp Positive A (Negative) Diabetes panel 12/29/22 12/30/22 Range/Units 21:54 03:18 Sodium 135 L 134 L (137-145) mmol/L Potassium 3.0 L 3.4 L (3.5-5.1) mmol/L Chloride 104 104 (98-107) mmol/L Carbon Dioxide 19 L 17 L (22-30) mmol/L BUN 28 H 32 H (9-20) mg/dL Creatinine 2.17 H 2.19 H (0.66-1.25) mg/dL Glucose 92 104 H (74-99) mg/dL Calcium 7.1 L 7.2 L (8.4-10.2) mg/dL Calcium panel 12/29/22 12/30/22 Range/Units 21:54 03:18 Calcium 7.1 L 7.2 L (8.4-10.2) mg/dL Pituitary panel 12/29/22 12/30/22 Range/Units 21:54 03:18 Sodium 135 L 134 L (137-145) mmol/L Potassium 3.0 L 3.4 L (3.5-5.1) mmol/L Chloride 104 104 (98-107) mmol/L Carbon Dioxide 19 L 17 L (22-30) mmol/L BUN 28 H 32 H (9-20) mg/dL Creatinine 2.17 H 2.19 H (0.66-1.25) mg/dL Glucose 92 104 H (74-99) mg/dL Calcium 7.1 L 7.2 L (8.4-10.2) mg/dL Adrenal panel 12/29/22 12/30/22 Range/Units 21:54 03:18 Sodium 135 L 134 L (137-145) mmol/L Potassium 3.0 L 3.4 L (3.5-5.1) mmol/L Chloride 104 104 (98-107) mmol/L Carbon Dioxide 19 L 17 L (22-30) mmol/L BUN 28 H 32 H (9-20) mg/dL Creatinine 2.17 H 2.19 H (0.66-1.25) mg/dL Glucose 92 104 H (74-99) mg/dL Calcium 7.1 L 7.2 L (8.4-10.2) mg/dL - Imaging CT scan - abdomen: report reviewed, image reviewed Assessment and Plan Assessment: The patient appears to have mild left hydroureteronephrosis due to a 2 mm left U VJ calculus. However, CT scan findings are identical to the CT scan performed in early 2021, raising the question that this is a chronic finding. However, given the patient's symptoms it is felt that he does indeed have a small left distal ureteral calculus which has a high likelihood of spontaneous passage. (1) Calculus of ureter Current Visit: No Status: Acute Code(s): N20.1 - CALCULUS OF URETER SNOMED Code(s): 06854647 (2) Hydronephrosis with renal and ureteral calculous obstruction Current Visit: Yes Status: Acute Code(s): N13.2 - HYDRONEPHROSIS WITH RENAL AND URETERAL CALCULOUS OBSTRUCTION SNOMED Code(s): 936540098 Plan: Continue tamsulosin. A Alcaraz catheter is in place, draining clear yellow urine. The Alcaraz catheter should be removed as soon as possible, as he will not pass the calculus through the catheter and therefore it is impossible to determine if and when the calculus passes. Consider ureteroscopic removal of the calculus if the patient's symptoms are intractable and he is felt to be medically stable. Time with Patient: Greater than 30
[2022-12-30] MEDS: ARTIFICIAL TEARS-HYPROMELLOSE DROPS 15 ML BTL LEFT EYE SCH (10:18)
--- NOTE | 2022-12-30 10:55 | CA ---
Transthoracic Echo Report Name: Evan Webb Age: 77 Gender: M : 1945 Exam Date: 12/30/2022 07:39 Exam Location: [facility] Ht (in): 67 Wt (lb): 189 Ordering Physician: Marian Pond Attending/Referring Phys: [id number], [employer] Quality Engineering Manager Nika Matute RDCS Procedure CPT: Indications: LV function Cardiac Hx: Technical Quality: Good Contrast 1: Total Dose (mL): Contrast 2: Total Dose (mL): MEASUREMENTS (Male / Female) Normal Values 2D ECHO LV Diastolic Diameter PLAX 3.8 cm 4.2 - 5.9 / 3.9 - 5.3 cm LV Systolic Diameter PLAX 3.3 cm IVS Diastolic Thickness 1.4 cm 0.6 - 1.0 / 0.6 - 0.9 cm LVPW Diastolic Thickness 1.6 cm 0.6 - 1.0 / 0.6 - 0.9 cm LV Relative Wall Thickness 0.8 RV Internal Dim ED PLAX 3.2 cm LVOT Diameter 2.1 cm LA Systolic Diameter LX 3.7 cm 3.0 - 4.0 / 2.7 - 3.8 cm LV Diastolic Volume MOD BP 65.0 cm??? 67 - 155 / 56 - 104 cm??? LV Systolic Volume MOD BP 25.6 cm??? 22 - 58 / 19 - 49 cm??? LV Ejection Fraction MOD BP 60.7 % >= 55 % LV Diastolic Volume MOD 4C 68.8 cm??? LV Systolic Volume MOD 4C 40.7 cm??? LV Ejection Fraction MOD 4C 40.8 % LV Diastolic Length 4C 7.6 cm LV Systolic Length 4C 7.1 cm LV Diastolic Volume MOD 2C 65.0 cm??? LV Systolic Volume MOD 2C 26.8 cm??? LV Ejection Fraction MOD 2C 58.8 % LV Diastolic Length 2C 7.6 cm LV Systolic Length 2C 6.1 cm LA Volume 88.4 cm??? 18 - 58 / 22 - 52 cm??? M-MODE Aortic Root Diameter MM 3.6 cm MV E Point Septal Separation 1.0 cm DOPPLER AV Peak Velocity 335.8 cm/s AV Peak Gradient 45.1 mmHg AV Mean Velocity 244.1 cm/s AV Mean Gradient 26.4 mmHg AV Velocity Time Integral 68.5 cm AI Peak Velocity 273.3 cm/s AI Peak Gradient 29.9 mmHg AI Pressure Half Time 804.6 ms LVOT Peak Velocity 86.4 cm/s LVOT Peak Gradient 3.0 mmHg AV Area Cont Eq pk 0.9 cm??? MV Area PHT 3.7 cm??? MV Deceleration Time 176.8 ms TR Peak Velocity 249.3 cm/s TR Peak Gradient 24.9 mmHg Right Ventricular Systolic Press 29.9 mmHg FINDINGS Left Ventricle Left ventricular ejection fraction is estimated at 50-55 %. Moderate concentric left ventricular hypertrophy. Small left ventricular cavity. Right Ventricle Normal right ventricular size and function. Right ventricular systolic pressure within normal limits. Right Atrium Normal right atrial size. Left Atrium Severely increased left atrial volume. Mildly increased left atrial area. Mitral Valve Structurally normal mitral valve. Mild mitral regurgitation. Aortic Valve Severe aortic valve sclerosis. Moderate aortic stenosis with a peak gradient of 45 mmHg and a mean gradient of 26 mmHg. [id number] aortic regurgitation. Tricuspid Valve Structurally normal tricuspid valve. Mild tricuspid regurgitation. Pulmonic Valve Structurally normal pulmonic valve. Mild pulmonic regurgitation. Pericardium Normal pericardium. No pericardial effusion. Aorta Normal size aortic root and proximal ascending aorta. CONCLUSIONS Normal LV size and preserved systolic function with moderate concentric LVH. Significant calcification of aortic valve leaflets and restriction with moderate aortic stenosis and mild to moderate regurgitation. There is mild mitral and tricuspid regurgitation no significant pulmonary hypertension no pericardial effusion Previewed by: Dr. Venus Greer MD (Electronically Signed) Final Date: 30 Dec 2022 10:55
[2022-12-30 11:25] LABS: Glucose,Whole Blood 141 mg/dL (70-110)
[2022-12-30] MEDS: NOREPINEPHRINE 4 MG in SODIUM CHLORIDE 0.9% 250 ML IV SCH (12:00)
[2022-12-30 12:36] LABS: Glucose,Whole Blood 106 mg/dL (70-110)
--- NOTE | 2022-12-30 14:12 | PN ---
PROGRESS NOTE HISTORY OF PRESENT ILLNESS: This is a 77-year-old gentleman that we initially evaluated in the emergency room yesterday. He has history of aortic stenosis, hypertension, dyslipidemia, esophageal cancer, and pericardial effusion status post window, who came in with symptoms of feeling dizzy and near syncope and had mild troponin elevation. An echocardiogram revealed normal LV systolic function. No wall motion abnormality. Moderate aortic stenosis with [id number] aortic regurgitation. There is no pericardial effusion. There is no significant pericardial effusion. He has since been diagnosed with C. difficile, had been hypotensive and is currently in ICU. MEDICATIONS: Currently on, 1. Aspirin. 2. Lipitor. 3. Insulin. 4. Levophed. 5. Vancomycin. PHYSICAL EXAMINATION: GENERAL: On exam, comfortable at rest. Heart rate is 58 beats per minute, irregular, respiratory rate 18, blood pressure is 91/57. NECK: There is no jugular venous distention. CHEST: Reveals good air entry bilaterally. HEART: Reveals first and second heart sounds. No gallop. EXTREMITIES: Exam of extremities did not reveal any edema. Peripheral pulses are palpable. LABORATORY DATA: INR today is still elevated at 4.4. ASSESSMENT: 1. Persistent atrial fibrillation with controlled ventricular rate. 2. Moderate aortic stenosis. 3. Coagulopathy with elevated INR. PLAN: We will hold the Coumadin for now. We will check the INR tomorrow and resume Coumadin. MMODL / IJN: [id number] /
[2022-12-30] MEDS ORDERED: ACETAMINOPHEN TAB 325 MG TAB PO PRN (15:35)
--- NOTE | 2022-12-30 15:36 | P.PN ---
Subjective Progress Note Date: 12/30/22 77-year-old pleasant male with history of esophageal cancer came in with nausea vomiting and the left lower quadrant 8/10 severe crampy abdominal pain and found to have a 2 mm renal calculus in the UVJ junction. Patient also found to be in acute renal failure with creatinine 1.3 and baseline around 0.579 a started on IV fluids at 75 mL per hour. Patient does have history of for uric stenosis but no history of congestive heart failure there is no echo cardiac M available at this time in the system. Patient denied any chest pain, EKG showed ST-T wave changes in the septal leads. Chest x-ray did show bilateral pleural effusions CT of the abdomen as mentioned above along with the bilateral pleural effusions although there is no infiltrate that is consistent with pneumonia. Patient doesn't have any fever or leukocytosis at this time urine analysis is not available at this time and will be ordered. 12/30/2022 Patient is evaluated today in the intensive care unit. Patient had 3 liters of fluid bolus last night for low blood pressures. Patient had a near syncope incident. Patient is maintained on levophed currently, receiving normal saline and also started on midodrine. Patient was found to have C.Dif colitis and has been started on oral vancomycin. The IV zosyn will be discontinued at this time. Infectious disease is consulted. Patient reports having 3 bowel movements this morning so far. He reports improvement in the abdominal discomfort less crampy and tender. Indwelling catheter in place, urine output about 30 mls/hr. Urology is consulted regarding the left kidney stone and he does have mild left sided hydronephrosis. Recommending to remove the catheter as soon as possible for evaluation of passing the stone. Chest xray today showing bilateral consolidation and pleural effusion correlate for CHF otherwise consider pneumonia. Echocardiogram showing normal LV systolic function, moderate aortic stenosis, mild to moderate regurgitation, mild mitral and tricuspid regurgitatio n. White count remains elevated at 26.7. Hemoglobin stable at 11.1. INR is down to 4.4 and warfarin remains on hold. Sodium is 134, potassium 3.4, magnesium 1.7. BUN 32, creatinine 2.19. Blood pressure is currently 84/65. Review of Systems Constitutional: Reports fatigue no fever Cardio vascular: denied any chest pain, palpitations Gastrointestinal: Reports crampy abdominal discomfort improving, reports diarrhea. Pulmonary: Denied any shortness of breath cough Neurologic denied any new focal deficits Diffuse weakness. All inpatient medications were reviewed and appropriate changes in these medications as dictated in the interval history and assessment and plan. PHYSICAL EXAMINATION: GENERAL: The patient is alert and oriented x3, not in any acute distress. Well developed, well nourished. Fatigued, Pale. HEENT: Pupils are round and equally reacting to light. EOMI. No scleral icterus. No conjunctival pallor. Normocephalic, atraumatic. No pharyngeal erythema. No thyromegaly. CARDIOVASCULAR: S1 and S2 present. No murmurs, rubs, or gallops. PULMONARY: Chest is clear to auscultation, no wheezing or crackles. Diminished. ABDOMEN: Soft, lower quadrant is tender, nondistended, normoactive bowel sounds. No palpable organomegaly. MUSCULOSKELETAL: No joint swelling or deformity. EXTREMITIES: No cyanosis, clubbing, or pedal edema. NEUROLOGICAL: Gross neurological examination did not reveal any focal deficits. Diffuse weakness. SKIN: No rashes. Assessment and plan Assessment -Fall and near syncope possibly from dehydration and sepsis/septic shock, patient is receiving fluid resuscitation and requiring vasopressor support -Acute C. Dif colitis with sepsis present on admission patient has been started on oral vancomycin. -Acute renal failure, multifocal from possible obstructive uropathy, patient has a 2mm left UVJ renal calculi and mild left hydronephrosis. Component of hypovolemia as well. Urinalysis is abnormal will hold off on antibiotics due to C.Dif infection and urine is being cultured. -Acute hypoxic respiratory failure likely from a mild acute CHF exacberation -Left-sided renal calculi, UTI cannot be ruled out -History of diastolic heart failure with aortic stenosis and mild to moderate aortic regurgitation, EF 50-55%. -Hypomagnesemia magnesium will be replaced -Valvular atrial fibrillation history patient is in atrial fibrillation with controlled ventricular rate -Supratherapeutic INR today 4.4. -Recent pericardial window performed at [facility] 2 weeks ago. -Type 2 diabetes mellitus -COPD without any acute exacerbation -Hyperlipidemia -Hypertension -Benign prostatic hypertrophy -History of esophageal cancer which is in remission at this time DVT prophylaxis: Patient has suprapubic INR GI prophylaxis: Pepcid Do Not Intubate Plan Continue IV fluids, monitor intake and output Nephrology consultation Continue oral vancomycin and DC zosyn, infectious disease consultation placed Urine and blood culture has been sent Replace electrolytes per protocol Monitor PT/INR continue holding warfarin Continue all other supportive care Patient requires close monitoring in intensive care unit with multiple consultations following. The impression and plan of care has been dictated by Mary Chahal, Nurse Practitioner as directed. Dr. Maged MD I have performed a history and physical examination and medical decision making of this patient, discussed the same with the dictator, and agree with the dictators assessment and plan as written, documented as a scribe. Based on total visit time, I have performed more than 50% of this visit. Objective - Vital Signs Vital signs: Vital Signs Temp 98.2 F 12/30/22 12:00 Pulse 51 L 12/30/22 15:00 Resp 15 12/30/22 15:00 BP 84/65 12/30/22 15:00 Pulse Ox 96 12/30/22 15:00 FiO2 Intake & Output 12/29/22 12/30/22 12/30/22 18:59 06:59 18:59 Intake Total 532.356 1303.466 Output Total 350 260 Balance 041.887 5703.466 Weight 77.111 kg 86 kg Intake: IV 480 675 Invasive Line 1 30 Sodium Chloride 0.9% 1, 450 675 000 ml @ 75 mls/hr IV . [id number] [facility] Rx#:[id number] Intake, IV Titration 002.519 5951.466 Amount Magnesium Sulfate-D5w Pmx 100 1 gm In Dextrose/Water 1 100ml.bag @ 100 mls/hr IVPB ONCE ONE Rx#: [id number] Norepinephrine 4 mg In 49.114 167.466 Sodium Chloride 0.9% 250 ml @ 0.03 MCG/KG/MIN 8. 814 mls/hr IV .Q24H [facility] Rx#:[id number] Piperacillin-Tazobactam 3 100 100 .375 gm In Sodium Chloride 0.9% 100 ml @ 25 mls/hr IVPB Q8H [facility] Rx#: [id number] Sodium Chloride 0.9% 1, 1000 000 ml @ 999 mls/hr IV . Q1H1M ONE Rx#:[id number] Oral 120 Output: Urine 350 260 Uretheral (Alcaraz) 80 Other: Voiding Method Indwelling Catheter Indwelling Catheter # Bowel Movements 1 - Labs CBC & Chem 7: 12/30/22 01:10 12/30/22 03:18 Labs: Abnormal Lab Results - Last 24 Hours (Table) 12/29/22 12/29/22 12/29/22 Range/Units 15:03 18:26 21:54 WBC 25.2 H (3.8-10.6) k/uL RBC 3.26 L (4.30-5.90) m/uL Hgb 10.7 L (13.0-17.5) gm/dL Hct 33.5 L (39.0-53.0) % MCV 102.9 H (80.0-100.0) fL Plt Count 94 L (150-450) k/uL Neutrophils # (Manual) (1.3-7.7) k/uL Lymphocytes # (Manual) (1.0-4.8) k/uL Metamyelocytes # (Man) (0) k/uL PT (9.0-12.0) sec INR (<1.2) Sodium (137-145) mmol/L Potassium (3.5-5.1) mmol/L Carbon Dioxide (22-30) mmol/L BUN (9-20) mg/dL Creatinine (0.66-1.25) mg/dL Glucose (74-99) mg/dL POC Glucose (mg/dL) 116 H (70-110) mg/dL Plasma Lactic Acid Arturo (0.7-2.0) mmol/L Calcium (8.4-10.2) mg/dL Troponin I 1.080 H* (0.000-0.034) ng/mL Urine Protein (Negative) Urine Blood (Negative) Ur Leukocyte Esterase (Negative) Urine RBC (0-5) /hpf Urine WBC (0-5) /hpf Urine WBC Clumps (None) /hpf Urine Bacteria (None) /hpf Urine Mucus (None) /hpf C. difficile (EIA) Intrp (Negative) 12/29/22 12/29/22 12/29/22 Range/Units 21:54 21:54 23:47 WBC (3.8-10.6) k/uL RBC (4.30-5.90) m/uL Hgb (13.0-17.5) gm/dL Hct (39.0-53.0) % MCV (80.0-100.0) fL Plt Count (150-450) k/uL Neutrophils # (Manual) (1.3-7.7) k/uL Lymphocytes # (Manual) (1.0-4.8) k/uL Metamyelocytes # (Man) (0) k/uL PT (9.0-12.0) sec INR (<1.2) Sodium 135 L (137-145) mmol/L Potassium 3.0 L (3.5-5.1) mmol/L Carbon Dioxide 19 L (22-30) mmol/L BUN 28 H (9-20) mg/dL Creatinine 2.17 H (0.66-1.25) mg/dL Glucose (74-99) mg/dL POC Glucose (mg/dL) (70-110) mg/dL Plasma Lactic Acid Arturo 2.9 H* (0.7-2.0) mmol/L Calcium 7.1 L (8.4-10.2) mg/dL Troponin I (0.000-0.034) ng/mL Urine Protein 1+ H (Negative) Urine Blood Large H (Negative) Ur Leukocyte Esterase Large H (Negative) Urine RBC >182 H (0-5) /hpf Urine WBC 78 H (0-5) /hpf Urine WBC Clumps Moderate H (None) /hpf Urine Bacteria Many H (None) /hpf Urine Mucus Rare H (None) /hpf C. difficile (EIA) Intrp (Negative) 12/30/22 12/30/22 12/30/22 Range/Units 01:10 03:18 03:18 WBC 26.7 H (3.8-10.6) k/uL RBC 3.25 L (4.30-5.90) m/uL Hgb 11.1 L (13.0-17.5) gm/dL Hct 34.7 L (39.0-53.0) % MCV 106.7 H (80.0-100.0) fL Plt Count 85 L (150-450) k/uL Neutrophils # (Manual) 25.00 H (1.3-7.7) k/uL Lymphocytes # (Manual) 0.80 L (1.0-4.8) k/uL Metamyelocytes # (Man) 0.27 H (0) k/uL PT 43.3 H (9.0-12.0) sec INR 4.4 H (<1.2) Sodium 134 L (137-145) mmol/L Potassium 3.4 L (3.5-5.1) mmol/L Carbon Dioxide 17 L (22-30) mmol/L BUN 32 H (9-20) mg/dL Creatinine 2.19 H (0.66-1.25) mg/dL Glucose 104 H (74-99) mg/dL POC Glucose (mg/dL) (70-110) mg/dL Plasma Lactic Acid Arturo (0.7-2.0) mmol/L Calcium 7.2 L (8.4-10.2) mg/dL Troponin I (0.000-0.034) ng/mL Urine Protein (Negative) Urine Blood (Negative) Ur Leukocyte Esterase (Negative) Urine RBC (0-5) /hpf Urine WBC (0-5) /hpf Urine WBC Clumps (None) /hpf Urine Bacteria (None) /hpf Urine Mucus (None) /hpf C. difficile (EIA) Intrp (Negative) 12/30/22 12/30/22 Range/Units 04:45 11:23 WBC (3.8-10.6) k/uL RBC (4.30-5.90) m/uL Hgb (13.0-17.5) gm/dL Hct (39.0-53.0) % MCV (80.0-100.0) fL Plt Count (150-450) k/uL Neutrophils # (Manual) (1.3-7.7) k/uL Lymphocytes # (Manual) (1.0-4.8) k/uL Metamyelocytes # (Man) (0) k/uL PT (9.0-12.0) sec INR (<1.2) Sodium (137-145) mmol/L Potassium (3.5-5.1) mmol/L Carbon Dioxide (22-30) mmol/L BUN (9-20) mg/dL Creatinine (0.66-1.25) mg/dL Glucose (74-99) mg/dL POC Glucose (mg/dL) 141 H (70-110) mg/dL Plasma Lactic Acid Arturo (0.7-2.0) mmol/L Calcium (8.4-10.2) mg/dL Troponin I (0.000-0.034) ng/mL Urine Protein (Negative) Urine Blood (Negative) Ur Leukocyte Esterase (Negative) Urine RBC (0-5) /hpf Urine WBC (0-5) /hpf Urine WBC Clumps (None) /hpf Urine Bacteria (None) /hpf Urine Mucus (None) /hpf C. difficile (EIA) Intrp Positive A (Negative) Assessment and Plan Time with Patient: Less than 30
[2022-12-30] MEDS: ATORVASTATIN 40 MG TAB PO SCH (16:45)
[2022-12-30 17:01] LABS: Glucose,Whole Blood 152 mg/dL (70-110)
[2022-12-30 21:18] LABS: Glucose,Whole Blood 136 mg/dL (70-110)
[2022-12-30] MEDS: LATANOPROST 0.005% OPHTH DROPS 2.5 ML BTL RIGHT EYE SCH (21:23)
[2022-12-30] MEDS: ASPIRIN 81 MG PO SCH (21:23)
[2022-12-30] MEDS: FAMOTIDINE 20 MG/2 ML VIAL IV SCH (21:23)
--- NOTE | 2022-12-30 21:23 | P.CONS ---
History of Present Illness - Reason for Consult Consult date: 12/30/22 C. diff Requesting physician: Vivienne Barahona - Chief Complaint Weakness and fall x one day - History of Present Illness Patient is a 77-year-old male with a past medical history significant for esophageal cancer for the patient has received treatment more than 11 years ago patient recently was evaluated at [facility] on 12/27/2022 with the patient presented with a acute nausea vomiting abdominal pain and diarrhea patient did have a CT of the chest abdominal pelvis with evidence of moderate straight obstructive changes and surgery with distal left ureteral calculus, The patient was discharged home on some oral antibiotics patient presenting back to the hospital on 12/29/2022 after apparently the patient did have a episode of weakness and dizziness patient was complained the room was spinning and fell on the left side of his body denying any loss of consciousness patient did not recall having any fever or any chills patient on presentation to the hospital did have a low-grade fever of 99.4 subsequently spiked a fever of 102.3 degrees Fahrenheit patient was hypotensive requiring fluid and pressor support patient did have a normal white initially her white count is up to 26.7 thousand today did have elevated BUN/creatinine positive UA influenza testing was negative patient was started on Zosyn he also have a CT of abdominal pelvis with evidence of left UVJ stone with mild prominence concerning for mild hydronephrosis infiltrate left lung base with small effusion normal gallbladder patient also have stool for C. 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 "ENLARGED HEART VALVES" PER PATIENT. HX OF PROSTATE CANCER WITH SURGERY, HX OF THROAT CANCER WITH SURGERY (2016), LOW IRON. BILATERAL HEARING AIDS. History of Any Multi-Drug Resistant Organisms: None Reported Past Surgical History: Orthopedic Surgery, Prostate Surgery Additional Past Surgical History / Comment(s): RIGHT SHOULDER X2, EGD'S, COL ONOSCOPIES, MICAH CATARACTS, PATIENT STATES ESOPHAGUS REMOVED AND STOMACH USED. 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 Medications and Allergies Home Medications Medication Instructions Recorded Confirmed Type Losartan [Cozaar] 50 mg PO BID 05/25/18 12/29/22 History Omeprazole 20 mg PO W/SUPPER 05/25/18 12/29/22 History Multivitamins, Thera [Multivitamin 1 tab PO DAILY@1200 09/26/19 12/29/22 History (formulary)] Aspirin 81 mg PO HS 10/04/21 12/29/22 History Cholecalciferol [Vitamin D3 (25 25 mcg PO DAILY 10/04/21 12/29/22 History Mcg = 1000 Iu)] Cyanocobalamin (Vitamin B-12) 1,000 mcg PO DAILY 10/04/21 12/29/22 History [Vitamin B-12] Ferrous Sulfate [Feosol] 325 mg PO BID@1700,2100 10/04/21 12/29/22 History Warfarin [Coumadin] 7.5 mg PO SUMOWEFRSA 10/04/21 12/29/22 History carvediloL [Coreg] 6.25 mg PO BID-W/MEALS 10/04/21 12/29/22 History Pioglitazone [Actos] 15 mg PO DAILY 07/03/22 12/29/22 History rOPINIRole HCL [Requip] 0.5 mg PO HS 07/03/22 12/29/22 History Atorvastatin [Lipitor] 40 mg PO W/SUPPER 11/25/22 12/29/22 History Carboxymethylcellulose Sodium 1 drop LEFT EYE DAILY 11/25/22 12/29/22 History [Thera Tears] Cetirizine HCl [Zyrtec] 10 mg PO DAILY 11/25/22 12/29/22 History Latanoprost/Pf [Latanoprost 0.005% 1 drop RIGHT EYE HS 11/25/22 12/29/22 History Eye Drop] Warfarin [Coumadin] 5 mg PO TUTH 11/25/22 12/29/22 History Ondansetron Odt [Zofran Odt] 4 mg PO Q8HR PRN #6 tab 12/27/22 12/29/22 Rx Tamsulosin [Flomax] 0.4 mg PO DAILY 7 Days #7 cap 12/27/22 12/29/22 Rx Allergies Allergy/AdvReac Type Severity Reaction Status Date / Time bee venom protein (honey bee) Allergy Severe Anaphylaxis Verified 12/29/22 10:03 latex Allergy Unknown Rash/Hives Verified 12/29/22 10:03 adhesive tape Allergy Unknown-Per Verified 12/29/22 10:03 Dr Dickens's office Physical Exam Vitals: Vital Signs Temp Pulse Pulse Resp BP BP BP 12/30/22 10:15 58 L 17 91/57 12/30/22 10:00 53 L 18 104/70 12/30/22 09:45 60 12 91/70 12/30/22 09:30 58 L 21 96/62 12/30/22 09:15 60 21 99/59 12/30/22 09:00 53 L 20 110/75 12/30/22 08:45 60 21 101/74 12/30/22 08:30 60 23 102/68 12/30/22 08:15 55 L 23 95/64 12/30/22 08:00 97.8 F 64 22 97/68 12/30/22 07:45 61 23 100/62 12/30/22 07:30 64 16 102/67 12/30/22 07:15 56 L 18 100/60 12/30/22 07:00 97.8 F 48 L 17 115/74 12/30/22 06:45 54 L 15 102/60 12/30/22 06:30 54 L 19 107/64 12/30/22 06:15 49 L 18 107/62 12/30/22 06:00 49 L 17 106/58 12/30/22 05:45 53 L 14 109/63 12/30/22 05:30 52 L 16 102/61 12/30/22 05:15 53 L 18 103/65 12/30/22 05:00 59 L 20 111/66 12/30/22 04:45 57 L 21 115/70 12/30/22 04:30 55 L 11 L 98/64 12/30/22 04:15 54 L 16 95/82 12/30/22 04:00 57 L 20 104/75 12/30/22 03:45 59 L 12 104/75 12/30/22 03:30 61 23 92/66 12/30/22 03:15 64 22 98/68 12/30/22 03:00 55 L 16 86/61 12/30/22 02:45 47 L 16 87/58 12/30/22 02:30 55 L 16 83/62 12/30/22 02:15 53 L 19 89/71 12/30/22 02:00 52 L 18 104/73 12/30/22 01:45 65 24 88/60 12/30/22 01:30 53 L 17 85/55 12/30/22 01:15 62 23 89/53 12/30/22 01:00 55 L 18 80/59 12/30/22 00:45 61 22 93/66 12/30/22 00:30 61 25 H 84/57 12/30/22 00:15 55 L 23 87/58 12/30/22 00:06 61 24 84/56 12/30/22 00:00 54 L 23 80/53 12/29/22 23:50 97.9 F 53 L 22 79/51 12/29/22 23:40 51 L 24 73/52 12/29/22 23:30 59 L 13 76/54 12/29/22 23:24 56 L 23 12/29/22 22:45 61 73/39 12/29/22 22:00 69/48 12/29/22 21:00 70/50 12/29/22 20:30 59 L 70/44 12/29/22 20:00 58 L 61/47 12/29/22 19:50 98.0 F 60 16 80/44 72/47 12/29/22 18:28 98.4 F 18 70/49 81/44 12/29/22 17:28 102.3 F H 66 19 94/51 12/29/22 14:14 64 18 117/71 12/29/22 11:09 62 18 90/56 Pulse Ox 12/30/22 10:15 94 L 12/30/22 10:00 94 L 12/30/22 09:45 95 05/16/23 09:30 96 12/30/22 09:15 96 12/30/22 09:00 96 12/30/22 08:45 96 12/30/22 08:30 95 12/30/22 08:15 97 12/30/22 08:00 96 12/30/22 07:45 96 12/30/22 07:30 96 12/30/22 07:15 96 12/30/22 07:00 95 12/30/22 06:45 95 12/30/22 06:30 95 12/30/22 06:15 97 12/30/22 06:00 93 L 12/30/22 05:45 97 12/30/22 05:30 97 12/30/22 05:15 96 12/30/22 05:00 94 L 12/30/22 04:45 96 12/30/22 04:30 96 12/30/22 04:15 92 L 12/30/22 04:00 95 12/30/22 03:45 95 12/30/22 03:30 94 L 12/30/22 03:15 96 12/30/22 03:00 96 12/30/22 02:45 95 12/30/22 02:30 95 12/30/22 02:15 95 12/30/22 02:00 95 12/30/22 01:45 96 12/30/22 01:30 96 12/30/22 01:15 97 12/30/22 01:00 97 12/30/22 00:45 95 12/30/22 00:30 94 L 12/30/22 00:15 96 12/30/22 00:06 95 12/30/22 00:00 95 12/29/22 23:50 95 12/29/22 23:40 94 L 12/29/22 23:30 94 L 12/29/22 23:24 95 12/29/22 22:45 12/29/22 22:00 12/29/22 21:00 12/29/22 20:30 12/29/22 20:00 12/29/22 19:50 97 12/29/22 18:28 12/29/22 17:28 96 12/29/22 14:14 92 L 12/29/22 11:09 99 Intake and Output 12/29/22 12/30/22 12/30/22 22:59 06:59 14:59 Intake Total 10 444.631 1419 Output Total 100 250 90 Balance -90 278.806 7250 Intake: IV 10 470 300 Invasive Line 1 10 20 Sodium Chloride 0.9% 1, 450 300 000 ml @ 75 mls/hr IV . [id number] [facility] Rx#:[id number] Intake, IV Titration 590.541 9870 Amount Magnesium Sulfate-D5w Pmx 100 1 gm In Dextrose/Water 1 100ml.bag @ 100 mls/hr IVPB ONCE ONE Rx#: [id number] Norepinephrine 4 mg In 49.114 Sodium Chloride 0.9% 250 ml @ 0.03 MCG/KG/MIN 8. 814 mls/hr IV .Q24H [facility] Rx#:[id number] Piperacillin-Tazobactam 3 100 100 .375 gm In Sodium Chloride 0.9% 100 ml @ 25 mls/hr IVPB Q8H [facility] Rx#: [id number] Sodium Chloride 0.9% 1, 1000 000 ml @ 999 mls/hr IV . Q1H1M [facility] Rx#:[id number] Oral 120 Output: Urine 100 250 90 Uretheral (Alcaraz) 80 Other: Voiding Method Indwelling Catheter Indwelling Catheter # Bowel Movements 1 Weight 77.111 kg 86 kg GENERAL DESCRIPTION: Elderly male lying in bed, no distress. No tachypnea or accessory muscle of respiration use. HEENT: Shows Pallor , no scleral icterus. Oral mucous membrane is dry. No pharyngeal erythema or thrush NECK: Trachea central, no thyromegaly. LUNGS: Unlabored breathing. Decreased breath sound at the base HEART: S1, S2, regular rate and rhythm. No loud murmur ABDOMEN: Soft, mild distention and tenderness EXTREMITIES: No edema of feet. SKIN: No rash, no masses palpable. NEUROLOGICAL: The patient is awake, alert, oriented x3, mood and affect normal. Results CBC & Chem 7: 01/02/23 06:45 01/02/23 06:45 Labs: Abnormal Lab Results - Last 24 Hours (Table) 12/29/22 12/29/22 12/29/22 Range/Units 11:14 15:03 18:26 WBC (3.8-10.6) k/uL RBC (4.30-5.90) m/uL Hgb (13.0-17.5) gm/dL Hct (39.0-53.0) % MCV (80.0-100.0) fL Plt Count (150-450) k/uL Neutrophils # (Manual) (1.3-7.7) k/uL Lymphocytes # (Manual) (1.0-4.8) k/uL Metamyelocytes # (Man) (0) k/uL PT (9.0-12.0) sec INR (<1.2) Sodium (137-145) mmol/L Potassium (3.5-5.1) mmol/L Carbon Dioxide (22-30) mmol/L BUN (9-20) mg/dL Creatinine (0.66-1.25) mg/dL Glucose (74-99) mg/dL POC Glucose (mg/dL) 116 H (70-110) mg/dL Plasma Lactic Acid Arturo (0.7-2.0) mmol/L Calcium (8.4-10.2) mg/dL Troponin I 0.866 H* 1.080 H* (0.000-0.034) ng/mL Urine Protein (Negative) Urine Blood (Negative) Ur Leukocyte Esterase (Negative) Urine RBC (0-5) /hpf Urine WBC (0-5) /hpf Urine WBC Clumps (None) /hpf Urine Bacteria (None) /hpf Urine Mucus (None) /hpf C. difficile (EIA) Intrp (Negative) 12/29/22 12/29/22 12/29/22 Range/Units 21:54 21:54 21:54 WBC 25.2 H (3.8-10.6) k/uL RBC 3.26 L (4.30-5.90) m/uL Hgb 10.7 L (13.0-17.5) gm/dL Hct 33.5 L (39.0-53.0) % MCV 102.9 H (80.0-100.0) fL Plt Count 94 L (150-450) k/uL Neutrophils # (Manual) (1.3-7.7) k/uL Lymphocytes # (Manual) (1.0-4.8) k/uL Metamyelocytes # (Man) (0) k/uL PT (9.0-12.0) sec INR (<1.2) Sodium 135 L (137-145) mmol/L Potassium 3.0 L (3.5-5.1) mmol/L Carbon Dioxide 19 L (22-30) mmol/L BUN 28 H (9-20) mg/dL Creatinine 2.17 H (0.66-1.25) mg/dL Glucose (74-99) mg/dL POC Glucose (mg/dL) (70-110) mg/dL Plasma Lactic Acid Arturo 2.9 H* (0.7-2.0) mmol/L Calcium 7.1 L (8.4-10.2) mg/dL Troponin I (0.000-0.034) ng/mL Urine Protein (Negative) Urine Blood (Negative) Ur Leukocyte Esterase (Negative) Urine RBC (0-5) /hpf Urine WBC (0-5) /hpf Urine WBC Clumps (None) /hpf Urine Bacteria (None) /hpf Urine Mucus (None) /hpf C. difficile (EIA) Intrp (Negative) 12/29/22 12/30/22 12/30/22 Range/Units 23:47 01:10 03:18 WBC 26.7 H (3.8-10.6) k/uL RBC 3.25 L (4.30-5.90) m/uL Hgb 11.1 L (13.0-17.5) gm/dL Hct 34.7 L (39.0-53.0) % MCV 106.7 H (80.0-100.0) fL Plt Count 85 L (150-450) k/uL Neutrophils # (Manual) 25.00 H (1.3-7.7) k/uL Lymphocytes # (Manual) 0.80 L (1.0-4.8) k/uL Metamyelocytes # (Man) 0.27 H (0) k/uL PT (9.0-12.0) sec INR (<1.2) Sodium 134 L (137-145) mmol/L Potassium 3.4 L (3.5-5.1) mmol/L Carbon Dioxide 17 L (22-30) mmol/L BUN 32 H (9-20) mg/dL Creatinine 2.19 H (0.66-1.25) mg/dL Glucose 104 H (74-99) mg/dL POC Glucose (mg/dL) (70-110) mg/dL Plasma Lactic Acid Arturo (0.7-2.0) mmol/L Calcium 7.2 L (8.4-10.2) mg/dL Troponin I (0.000-0.034) ng/mL Urine Protein 1+ H (Negative) Urine Blood Large H (Negative) Ur Leukocyte Esterase Large H (Negative) Urine RBC >182 H (0-5) /hpf Urine WBC 78 H (0-5) /hpf Urine WBC Clumps Moderate H (None) /hpf Urine Bacteria Many H (None) /hpf Urine Mucus Rare H (None) /hpf C. difficile (EIA) Intrp (Negative) 12/30/22 12/30/22 Range/Units 03:18 04:45 WBC (3.8-10.6) k/uL RBC (4.30-5.90) m/uL Hgb (13.0-17.5) gm/dL Hct (39.0-53.0) % MCV (80.0-100.0) fL Plt Count (150-450) k/uL Neutrophils # (Manual) (1.3-7.7) k/uL Lymphocytes # (Manual) (1.0-4.8) k/uL Metamyelocytes # (Man) (0) k/uL PT 43.3 H (9.0-12.0) sec INR 4.4 H (<1.2) Sodium (137-145) mmol/L Potassium (3.5-5.1) mmol/L Carbon Dioxide (22-30) mmol/L BUN (9-20) mg/dL Creatinine (0.66-1.25) mg/dL Glucose (74-99) mg/dL POC Glucose (mg/dL) (70-110) mg/dL Plasma Lactic Acid Arturo (0.7-2.0) mmol/L Calcium (8.4-10.2) mg/dL Troponin I (0.000-0.034) ng/mL Urine Protein (Negative) Urine Blood (Negative) Ur Leukocyte Esterase (Negative) Urine RBC (0-5) /hpf Urine WBC (0-5) /hpf Urine WBC Clumps (None) /hpf Urine Bacteria (None) /hpf Urine Mucus (None) /hpf C. difficile (EIA) Intrp Positive A (Negative) Assessment and Plan (1) Sepsis Current Visit: Yes Status: Acute Code(s): A41.9 - SEPSIS, UNSPECIFIED ORGANISM SNOMED Code(s): 50305965 (2) C. difficile colitis Current Visit: Yes Status: Acute Code(s): A04.72 - ENTEROCOLITIS D/T CLOSTRIDIUM DIFFICILE, NOT SPCF RECUR SNOMED Code(s): 725264804 Plan: 1patient was in the hospital with sepsis/septic shock in this patient with fever elevated white count hypotension requiring pressor support source is likely complicated UTI with left-sided hydro nephrosis and left ureteral calculus likely from enteric gram-negative pathogen and the clinical course has been complicated by positive C. difficile 2-patient to continue the vancomycin 250 mg p.o. every 6 hours 3-we will add Rocephin 2 g daily to cover for the likely left-sided pyonephritis and complicated UTI 4-IV fluid and pressor support per ICU team We will follow on clinical condition and cultures to further adjust medication if needed Thank you for this consultation we will follow the patient along with you Time with Patient: Greater than 30
[2022-12-31] MEDS: VANCOMYCIN 125 MG CAPSULE PO SCH ×4 (00:20→16:59)
[2022-12-31] MEDS: NOREPINEPHRINE 4 MG in SODIUM CHLORIDE 0.9% 250 ML IV SCH (05:21)
[2022-12-31 06:05] LABS: Basophils % (A) 0 %; Eosinophils % (A) 0 %; HGB 11.5 gm/dL (13.0-17.5); Hypochromasia Slight; Lymphocytes # (A) 0.4 k/uL (1.0-4.8); Lymphocytes % (A) 2 %; MCH 33.3 pg (25.0-35.0); MCHC 31.9 g/dL (31.0-37.0); MCV 104.5 fL (80.0-100.0); Macrocytosis Moderate; Mean Platelet Volume 9.4; Monocytes # (A) 0.5 k/uL (0-1.0); Monocytes % (A) 3 %; Neutrophils # (A) 17.4 k/uL (1.3-7.7); Neutrophils % (A) 94 %; RBC 3.44 m/uL (4.30-5.90); RDW 14.1 % (11.5-15.5); WBC 18.5 k/uL (3.8-10.6)
[2022-12-31 06:13] LABS: Platelet Count 65 k/uL (150-450)
[2022-12-31 06:18] LABS: INR 4.8 (<1.2)
[2022-12-31 06:28] LABS: Magnesium 2.1 mg/dL (1.6-2.3); Potassium 3.4 mmol/L (3.5-5.1)
[2022-12-31] MEDS: MIDODRINE 5 MG TAB PO SCH ×3 (06:43→17:00)
[2022-12-31] MEDS: SODIUM CHLORIDE 0.9% 1,000 ML IV SCH ×2 (06:44→19:31)
[2022-12-31] MEDS: INSULIN ASPART (NovoLOG) 100 UNIT/ML VIAL SQ SCH ×4 (06:47→20:42)
[2022-12-31] MEDS: POTASSIUM CHLORIDE ER 20 MEQ TAB.ER PO SCH ×2 (09:16→12:21)
[2022-12-31] MEDS: LORATADINE 10 MG TAB PO SCH (09:17)
[2022-12-31] MEDS: ARTIFICIAL TEARS-HYPROMELLOSE DROPS 15 ML BTL LEFT EYE SCH (09:17)
[2022-12-31] MEDS: TAMSULOSIN 0.4 MG CAP.ER.24H PO SCH (09:17)
[2022-12-31] MEDS ORDERED: SODIUM CHLORIDE 0.9% 500 ML 500 ML IV SCH (10:00)
[2022-12-31 11:04] LABS: Glucose,Whole Blood 131 mg/dL (70-110)
--- NOTE | 2022-12-31 11:11 | P.NPCON ---
History of Present Illness - Reason for Consult acute renal failure - History of Present Illness Reason for consultation: Acute kidney injury History of present illness: Patient is a 77-year-old male seen in renal consultation for acute kidney injury. Patient baseline creatinine is near 1 and peaked at 2.197 admission and is down to 1.63 today. Patient has history of esophageal cancer and states was treated with chemotherapy and radiation few years ago. He came to the hospital due to nausea vomiting as well as abdominal pain. He tested positive for C. diff and is maintained on oral vancomycin. Oral intake is just fair. Denies chest pain or shortness of breath. He's on room air. Patient has history of moderate aortic stenosis and mild to moderate aortic regurgitation. He did receive CT with IV contrast on 12/29/2022. He was noted to have left-sided hydronephrosis and is being followed by urology. Patient also states that he had pericardiocentesis done about 2 weeks ago at [facility] with 1 L drained. He does have history of diabetes. He denies use of nonsteroidals. Denies history of coronary artery disease. He is currently receiving IV fluids. He is on low-dose Levophed. Vital signs are stable. On low-dose Levophed. General: No acute distress. HEENT: Head exam is unremarkable. LUNGS: No audible rhonchi or wheezes. HEART: Rate and Rhythm are regular. ABDOMEN: Nontender. Nontender. EXTREMITITES: 1+ edema. 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 "ENLARGED HEART VALVES" PER PATIENT. HX OF PROSTATE CANCER WITH SURGERY, HX OF THROAT CANCER WITH SURGERY (2016), LOW IRON. BILATERAL HEARING AIDS. History of Any Multi-Drug Resistant Organisms: None Reported Past Surgical History: Orthopedic Surgery, Prostate Surgery Additional Past Surgical History / Comment(s): RIGHT SHOULDER X2, EGD'S, COLON OSCOPIES, MICAH CATARACTS, PATIENT STATES ESOPHAGUS REMOVED AND STOMACH USED. 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 Medications and Allergies Home Medications Medication Instructions Recorded Confirmed Type Losartan [Cozaar] 50 mg PO BID 05/25/18 12/29/22 History Omeprazole 20 mg PO W/SUPPER 05/25/18 12/29/22 History Multivitamins, Thera [Multivitamin 1 tab PO DAILY@1200 09/26/19 12/29/22 History (formulary)] Aspirin 81 mg PO HS 10/04/21 12/29/22 History Cholecalciferol [Vitamin D3 (25 25 mcg PO DAILY 10/04/21 12/29/22 History Mcg = 1000 Iu)] Cyanocobalamin (Vitamin B-12) 1,000 mcg PO DAILY 10/04/21 12/29/22 History [Vitamin B-12] Ferrous Sulfate [Feosol] 325 mg PO BID@1700,2100 10/04/21 12/29/22 History Warfarin [Coumadin] 7.5 mg PO SUMOWEFRSA 10/04/21 12/29/22 History carvediloL [Coreg] 6.25 mg PO BID-W/MEALS 10/04/21 12/29/22 History Pioglitazone [Actos] 15 mg PO DAILY 07/03/22 12/29/22 History rOPINIRole HCL [Requip] 0.5 mg PO HS 07/03/22 12/29/22 History Atorvastatin [Lipitor] 40 mg PO W/SUPPER 11/25/22 12/29/22 History Carboxymethylcellulose Sodium 1 drop LEFT EYE DAILY 11/25/22 12/29/22 History [Thera Tears] Cetirizine HCl [Zyrtec] 10 mg PO DAILY 11/25/22 12/29/22 History Latanoprost/Pf [Latanoprost 0.005% 1 drop RIGHT EYE HS 11/25/22 12/29/22 History Eye Drop] Warfarin [Coumadin] 5 mg PO TUTH 11/25/22 12/29/22 History Ondansetron Odt [Zofran Odt] 4 mg PO Q8HR PRN #6 tab 12/27/22 12/29/22 Rx Tamsulosin [Flomax] 0.4 mg PO DAILY 7 Days #7 cap 12/27/22 12/29/22 Rx Allergies Allergy/AdvReac Type Severity Reaction Status Date / Time bee venom protein (honey bee) Allergy Severe Anaphylaxis Verified 12/29/22 10:03 latex Allergy Unknown Rash/Hives Verified 12/29/22 10:03 adhesive tape Allergy Unknown-Per Verified 12/29/22 10:03 Dr Dickens's office Physical Exam Vitals: Vital Signs Temp Pulse Resp BP Pulse Ox 12/31/22 09:45 94 L 12/31/22 08:15 55 L 21 95/66 96 12/31/22 08:00 98.1 F 65 16 101/62 100 12/31/22 07:45 59 L 19 102/71 12/31/22 07:30 67 17 111/65 12/31/22 07:15 13 108/70 95 12/31/22 07:00 73 14 113/69 96 12/31/22 06:45 65 17 96/63 12/31/22 06:30 62 15 95/62 95 12/31/22 06:15 53 L 19 104/64 12/31/22 06:00 59 L 14 106/59 97 12/31/22 05:45 49 L 17 99/57 12/31/22 05:30 57 L 15 95/63 96 12/31/22 05:15 58 L 14 98/63 95 12/31/22 05:00 56 L 14 103/75 95 12/31/22 04:45 70 18 92/55 95 12/31/22 04:30 63 16 94/58 95 12/31/22 04:15 64 14 94/59 97 12/31/22 04:00 97.6 F 64 15 89/58 97 12/31/22 03:45 61 16 89/62 97 12/31/22 03:30 55 L 14 94/54 97 12/31/22 03:15 56 L 13 100/58 97 12/31/22 03:00 61 18 92/57 97 12/31/22 02:45 66 14 94/56 12/31/22 02:30 61 19 92/56 94 L 12/31/22 02:15 58 L 18 89/63 12/31/22 02:00 65 18 94/57 96 12/31/22 01:45 53 L 18 100/71 12/31/22 01:30 59 L 18 111/82 95 12/31/22 01:15 72 21 99/58 12/31/22 01:00 60 16 95/67 96 12/31/22 00:45 63 14 90/63 95 12/31/22 00:30 60 17 93/63 95 12/31/22 00:15 64 20 91/65 94 L 12/31/22 00:00 97.4 F L 53 L 17 84/58 95 12/30/22 23:45 50 L 15 96/66 95 12/30/22 23:30 56 L 19 84/60 95 12/30/22 23:15 56 L 15 84/57 95 12/30/22 23:00 61 14 85/60 96 12/30/22 22:45 52 L 15 87/64 95 12/30/22 22:30 52 L 18 92/59 94 L 12/30/22 22:15 56 L 15 87/61 94 L 12/30/22 22:00 60 15 98/70 95 12/30/22 21:45 61 17 98/67 95 12/30/22 21:30 58 L 12 94/64 95 12/30/22 21:15 59 L 20 92/66 94 L 12/30/22 21:00 71 19 88/63 94 L 12/30/22 20:45 48 L 17 94/61 94 L 12/30/22 20:30 51 L 15 94/60 95 12/30/22 20:15 60 16 95/61 94 L 12/30/22 20:00 97.4 F L 56 L 16 94/60 95 12/30/22 19:45 55 L 15 87/58 95 12/30/22 19:30 53 L 16 84/58 95 12/30/22 19:15 50 L 15 75/54 95 12/30/22 19:00 49 L 15 72/51 95 12/30/22 18:45 49 L 16 79/59 95 12/30/22 18:30 55 L 16 79/58 96 12/30/22 18:15 61 14 87/62 96 12/30/22 18:00 61 15 80/52 95 12/30/22 17:45 60 17 88/62 95 05/16/23 17:30 59 L 15 101/67 96 12/30/22 17:15 55 L 18 107/77 96 12/30/22 17:00 60 20 102/64 95 12/30/22 16:45 47 L 14 100/69 96 12/30/22 16:30 49 L 16 100/64 96 12/30/22 16:15 48 L 14 87/60 96 12/30/22 16:00 98 F 46 L 16 91/58 96 12/30/22 15:45 47 L 15 94/64 96 12/30/22 15:30 49 L 13 101/71 96 12/30/22 15:15 47 L 16 96/68 96 12/30/22 15:00 51 L 15 84/65 96 12/30/22 14:45 53 L 15 95/62 95 12/30/22 14:30 55 L 16 107/67 94 L 12/30/22 14:15 48 L 15 75/58 95 12/30/22 14:00 45 L 15 93/58 95 12/30/22 13:45 48 L 16 93/68 94 L 12/30/22 13:30 53 L 18 87/59 96 12/30/22 13:15 57 L 17 94/63 95 12/30/22 13:00 53 L 15 101/68 96 12/30/22 12:45 58 L 19 113/72 96 12/30/22 12:30 56 L 16 115/71 95 12/30/22 12:15 58 L 16 120/68 96 12/30/22 12:00 98.2 F 58 L 21 108/85 95 12/30/22 11:45 55 L 19 107/70 97 12/30/22 11:30 57 L 17 89/57 96 12/30/22 11:15 51 L 15 88/54 95 Intake and Output 12/30/22 12/31/22 12/31/22 22:59 06:59 14:59 Intake Total 8873.574 8046.006 381.752 Output Total 200 560 180 Balance 963.950 589.006 201.752 Intake: IV 1000 1000 250 Sodium Chloride 0.9% 1, 950 1000 250 000 ml @ 125 mls/hr IV . Q8H [facility] Rx#:[id number] cefTRIAXone 2 gm In 50 Sodium Chloride 0.9% 50 ml @ 100 mls/hr IVPB Q24H [facility] Rx#:[id number] Intake, IV Titration 63.950 149.006 11.752 Amount Norepinephrine 4 mg In 63.950 149.006 11.752 Sodium Chloride 0.9% 250 ml @ 0.03 MCG/KG/MIN 8. 814 mls/hr IV .Q24H [facility] Rx#:[id number] Oral 100 120 Output: Urine 200 560 180 Other: Voiding Method Indwelling Catheter Indwelling Catheter Indwelling Catheter Weight 87 kg Results - Lab Results Most recent lab results Calcium 7.0 mg/dL (8.4-10.2) L 12/31/22 05:30 Magnesium 2.1 mg/dL (1.6-2.3) 12/31/22 05:30 12/31/22 05:30 12/31/22 05:30 Assessment and Plan Plan: Assessment: 1. Acute kidney injury secondary to ATN secondary to septic shock. Also received IV contrast on 12/29/2022. Creatinine peaked at 2.1 and this admission and is 1.63 today. Baseline creatinine near 1. 2. Septic shock secondary to C. diff colitis on Levophed. On oral vancomycin. ID following. 3. Chronic diastolic CHF with moderate aortic stenosis and [id number] aortic regurgitation. 4. Left hydronephrosis due to calculus. Urology following. 5. Hypokalemia from poor intake. 6. Metabolic acidosis secondary to lactic acidosis, acute kidney injury, IV fluids and GI losses. Plan: Hep-Lock IV fluids. Encourage oral intake. Wean Levophed. Replace potassium. Avoid nephrotoxins. Add po bicarb. Continue to monitor renal function and urine output. Thank you for the consultation. I will continue to follow the patient with you during his hospital stay.
--- NOTE | 2022-12-31 12:04 | P.PN ---
Subjective Progress Note Date: 12/31/22 Principal diagnosis: Near syncope and hypotension I'm seeing this patient in new consultation today 12/30/2022 in the intensive care unit after being found to be hypotensive on the cardiac stepdown unit. Patient is a 77-year-old white male with past medical history significant for pericardial effusion status post cardiac window at [facility] approximately 2 weeks ago, atrial fibrillation, COPD, diabetes mellitus, GERD, hyperlipidemia, hypertension, history of esophageal CA status post surgery. Patient presented to the emergency room on 12/29/2022 after experiencing a fall at home. The patient reports that when he got up out of the recliner, the room started spinning, and he fell into another chair and the fireplace. Patient denies hitting his head. He is on anticoagulants for his history of A. fib. CT of brain and C-spine without contrast showed no acute intracranial process or fracture. He does admit to some intractable nausea and vomiting while at home. He did have a recent ER visit for left-sided abdominal pain, which was attributed to his known kidney stone. On arrival to the ER, a follow up CT of abdomen and pelvis with contrast showed no evidence of intra-abdominal trauma, stable 1-2 mm calcification in the region of the left UVJ with mild prominence of the left renal collecting system. There was possibility of mild left hydronephrosis. There was also development of a left basilar lung infiltrate with small left pleural effusion, and some cardiomegaly with small pericardial effusion which is smaller compared to previous study. Chest x-ray showed bilateral lower lobe infiltrates and small bibasilar effusions with cardiomegaly. The patient was admitted to the cardiac stepdown unit. Last night, the patient became hypotensive, and was fluid resuscitated with 2.5 L of normal saline. He was ultimately transferred to the intensive care unit, and a norepinephrine infusion was started. The patient is resting in bed, on 2 L nasal cannula, in no acute distress. He is normotensive on a norepinephrine infusion at 0.5 mics per kilogram per minute. Normal saline is infusing at 75 mL per hour. Patient's most recent CBC shows some leukocytosis with a WBC count of 25, hemoglobin 11, hematocrit 33.5, platelets 94,000. Patient's most recent BMP shows a sodium of 135, potassium 3, chloride 104, serum CO2 19, BUN 28, creatinine 2.17, glucose 92. Patient's lactic acid level was elevated at 2.9 and is down to 2. UA shows large amount of leukocyte esterase, many bacteria, and blood. Patient has been empirically covered with Zosyn. He is afebrile. Heart rhythm is atrial fibrillation with slow ventricular response around 50-60 bpm. Troponins were elevated and most recent result is 1.08. Patient denies any chest pain. NT proBNP was elevated at 30,700. INR was supratherapeutic at 5.3. Cardiology is following. Patient will be monitored in the intensive care unit. Reevaluated today on 12/31/2022, patient remains in the ICU, doing well, continues to have diarrhea, seen by infectious disease, kept him on oral vancomycin, and recommended Rocephin for possible urinary tract infection patient remains on norepinephrine at 0.03 mcg/kg/m his IV fluid is 0.9 normal saline at 1 25 mL per hour. His echocardiogram showed moderate aortic stenosis, pro-calcitonin level is significantly elevated at 90.1. Renal functioning is improving today creatinine is down to 1.63, it was 2.19 yesterday and WBC count is coming down 18.5 today compared to 26.7 yesterday. Obviously the patient is responding well to treatment, and no further episodes of syncope or near syncope. Objective - Vital Signs Vital signs: Vital Signs Temp 98.1 F 12/31/22 08:00 Pulse 55 L 12/31/22 08:15 Resp 21 12/31/22 08:15 BP 95/66 12/31/22 08:15 Pulse Ox 94 L 12/31/22 09:45 FiO2 Intake & Output 12/30/22 12/31/22 12/31/22 18:59 06:59 18:59 Intake Total 2701.416 1699.006 381.752 Output Total 340 660 180 Balance 2361.416 1039.006 201.752 Weight 87 kg Intake: IV 1050 1550 250 Sodium Chloride 0.9% 1, 1050 1500 250 000 ml @ 125 mls/hr IV . Q8H [facility] Rx#:[id number] cefTRIAXone 2 gm In 50 Sodium Chloride 0.9% 50 ml @ 100 mls/hr IVPB Q24H [facility] Rx#:[id number] Intake, IV Titration 1431.416 149.006 11.752 Amount Magnesium Sulfate-D5w Pmx 100 1 gm In Dextrose/Water 1 100ml.bag @ 100 mls/hr IVPB ONCE ONE Rx#: [id number] Norepinephrine 4 mg In 231.416 149.006 11.752 Sodium Chloride 0.9% 250 ml @ 0.03 MCG/KG/MIN 8. 814 mls/hr IV .Q24H [facility] Rx#:[id number] Piperacillin-Tazobactam 3 100 .375 gm In Sodium Chloride 0.9% 100 ml @ 25 mls/hr IVPB Q8H [facility] Rx#: [id number] Sodium Chloride 0.9% 1, 1000 000 ml @ 999 mls/hr IV . Q1H1M [facility] Rx#:[id number] Oral 220 120 Output: Urine 340 660 180 Other: Voiding Method Indwelling Catheter Indwelling Catheter Indwelling Catheter # Bowel Movements 1 - Exam Physical Exam: Revealed 77-year-old white male in no distress Head: Atraumatic, normocephalic. HEENT:[Neck is supple.] [No neck masses.] [No thyromegaly.] [No JVD.] Chest: [Minimal fine crackles at the bases no rhonchi and no wheezes Cardiac Exam: [Normal S1 and S2, no S3 gallop, 2/6 systolic murmur thought the precordium Abdomen: [Soft, nontender, no megaly, no rebound, no guarding, normal bowel sounds.] Extremities: [No clubbing, no edema, no cyanosis.] Neurological Exam: [No focal neurologic deficit.] Alert oriented 3 Psychiatric: Normal mood affect and normal mental status examination. Skin: No rashes - Labs CBC & Chem 7: 12/31/22 05:30 12/31/22 05:30 Labs: Abnormal Lab Results - Last 24 Hours (Table) 12/30/22 12/30/22 12/30/22 Range/Units 03:18 16:48 21:16 WBC (3.8-10.6) k/uL RBC (4.30-5.90) m/uL Hgb (13.0-17.5) gm/dL Hct (39.0-53.0) % MCV (80.0-100.0) fL Plt Count (150-450) k/uL Neutrophils # (1.3-7.7) k/uL Lymphocytes # (1.0-4.8) k/uL PT (9.0-12.0) sec INR (<1.2) Sodium (137-145) mmol/L Potassium (3.5-5.1) mmol/L Chloride (98-107) mmol/L Carbon Dioxide (22-30) mmol/L BUN (9-20) mg/dL Creatinine (0.66-1.25) mg/dL Glucose (74-99) mg/dL POC Glucose (mg/dL) 152 H 136 H (70-110) mg/dL Calcium (8.4-10.2) mg/dL Procalcitonin 90.10 H (0.02-0.09) ng/mL 12/31/22 12/31/22 12/31/22 Range/Units 05:30 05:30 05:30 WBC 18.5 H (3.8-10.6) k/uL RBC 3.44 L (4.30-5.90) m/uL Hgb 11.5 L (13.0-17.5) gm/dL Hct 36.0 L (39.0-53.0) % MCV 104.5 H (80.0-100.0) fL Plt Count 65 L (150-450) k/uL Neutrophils # 17.4 H (1.3-7.7) k/uL Lymphocytes # 0.4 L (1.0-4.8) k/uL PT 47.0 H (9.0-12.0) sec INR 4.8 H (<1.2) Sodium 136 L (137-145) mmol/L Potassium 3.4 L (3.5-5.1) mmol/L Chloride 110 H (98-107) mmol/L Carbon Dioxide 20 L (22-30) mmol/L BUN 37 H (9-20) mg/dL Creatinine 1.63 H (0.66-1.25) mg/dL Glucose 108 H (74-99) mg/dL POC Glucose (mg/dL) (70-110) mg/dL Calcium 7.0 L (8.4-10.2) mg/dL Procalcitonin (0.02-0.09) ng/mL 12/31/22 Range/Units 11:03 WBC (3.8-10.6) k/uL RBC (4.30-5.90) m/uL Hgb (13.0-17.5) gm/dL Hct (39.0-53.0) % MCV (80.0-100.0) fL Plt Count (150-450) k/uL Neutrophils # (1.3-7.7) k/uL Lymphocytes # (1.0-4.8) k/uL PT (9.0-12.0) sec INR (<1.2) Sodium (137-145) mmol/L Potassium (3.5-5.1) mmol/L Chloride (98-107) mmol/L Carbon Dioxide (22-30) mmol/L BUN (9-20) mg/dL Creatinine (0.66-1.25) mg/dL Glucose (74-99) mg/dL POC Glucose (mg/dL) 131 H (70-110) mg/dL Calcium (8.4-10.2) mg/dL Procalcitonin (0.02-0.09) ng/mL Microbiology - Last 24 Hours (Table) 12/30/22 03:18 Blood Culture - Preliminary Blood 12/30/22 23:47 Urine Culture - Preliminary Urine,Voided Assessment and Plan Assessment: Impression: Fall and near syncope Refractory hypertension to fluids, requiring vasopressors, remains on norepinephrine Acute hypoxic respiratory failure secondary to mild diastolic congestive heart failure with small pleural effusions Acute kidney injury with ureterolithiasis Chronic atrial fibrillation with controlled rate Aortic stenosis with systolic ejection murmur History of pericardial effusion requiring pericardial window 2 weeks ago at [place] in the [facility] Underlying COPD History of esophageal cancer Recommendation: Continue IV fluids Continue antibiotics Continue oral vancomycin Titrate norepinephrine accordingly and hopefully discontinued if possible Patient is being followed by many consultants including cardiology and nephrology urology and infectious disease. We will continue to follow and monitor in the ICU as long as his requiring pressors. Time with Patient: Less than 30
--- NOTE | 2022-12-31 12:15 | P.PN ---
Subjective Progress Note Date: 12/31/22 Principal diagnosis: Left hydronephrosis The patient is a 77-year-old white male with a history of recurrent urolithiasis. He currently reports left-sided abdominal pain. CT scan shows mild left hydronephrosis, which may be chronic. There appears to be a 1-2 mm left distal ureteral calculus, but this is in question as it has been seen on prior imaging studies. Urinalysis is suggestive of possible infection. A urine culture is pending. A Alcaraz catheter remains in place, draining blood-tinged urine. He states that his pain is somewhat improved. Objective - Vital Signs Vital signs: Vital Signs Temp 97.6 F 12/31/22 04:00 Pulse 59 L 12/31/22 06:00 Resp 14 12/31/22 06:00 BP 106/59 12/31/22 06:00 Pulse Ox 97 12/31/22 06:00 FiO2 Intake & Output 12/30/22 12/30/22 12/31/22 06:59 18:59 06:59 Intake Total 332.113 0282.416 1689.457 Output Total 350 340 660 Balance 471.141 9015.416 1029.457 Weight 86 kg 87 kg Intake: IV 480 1050 1550 Invasive Line 1 30 Sodium Chloride 0.9% 1, 450 1050 1500 000 ml @ 125 mls/hr IV . Q8H [facility] Rx#:[id number] cefTRIAXone 2 gm In 50 Sodium Chloride 0.9% 50 ml @ 100 mls/hr IVPB Q24H [facility] Rx#:[id number] Intake, IV Titration 696.215 2170.416 139.457 Amount Magnesium Sulfate-D5w Pmx 100 1 gm In Dextrose/Water 1 100ml.bag @ 100 mls/hr IVPB ONCE ONE Rx#: [id number] Norepinephrine 4 mg In 49.114 231.416 139.457 Sodium Chloride 0.9% 250 ml @ 0.03 MCG/KG/MIN 8. 814 mls/hr IV .Q24H [facility] Rx#:[id number] Piperacillin-Tazobactam 3 100 100 .375 gm In Sodium Chloride 0.9% 100 ml @ 25 mls/hr IVPB Q8H [facility] Rx#: [id number] Sodium Chloride 0.9% 1, 1000 000 ml @ 999 mls/hr IV . Q1H1M [facility] Rx#:[id number] Oral 220 Output: Urine 350 340 660 Uretheral (Alcaraz) 80 Other: Voiding Method Indwelling Catheter Indwelling Catheter Indwelling Catheter # Bowel Movements 1 - Constitutional General appearance: Present: average body habitus, no acute distress - Gastrointestinal Gastrointestinal Comment(s): Soft, non-distended. Mild left lower quadrant tenderness, no guarding or rebound. - Psychiatric Psychiatric: Present: A&O x's 3 - Labs CBC & Chem 7: 12/31/22 05:30 12/31/22 05:30 Labs: Abnormal Lab Results - Last 24 Hours (Table) 12/30/22 12/30/22 12/30/22 Range/Units 03:18 11:23 16:48 WBC (3.8-10.6) k/uL RBC (4.30-5.90) m/uL Hgb (13.0-17.5) gm/dL Hct (39.0-53.0) % MCV (80.0-100.0) fL Plt Count (150-450) k/uL Neutrophils # (1.3-7.7) k/uL Lymphocytes # (1.0-4.8) k/uL PT (9.0-12.0) sec INR (<1.2) Sodium (137-145) mmol/L Potassium (3.5-5.1) mmol/L Chloride (98-107) mmol/L Carbon Dioxide (22-30) mmol/L BUN (9-20) mg/dL Creatinine (0.66-1.25) mg/dL Glucose (74-99) mg/dL POC Glucose (mg/dL) 141 H 152 H (70-110) mg/dL Calcium (8.4-10.2) mg/dL Procalcitonin 90.10 H (0.02-0.09) ng/mL 12/30/22 12/31/22 12/31/22 Range/Units 21:16 05:30 05:30 WBC (3.8-10.6) k/uL RBC (4.30-5.90) m/uL Hgb (13.0-17.5) gm/dL Hct (39.0-53.0) % MCV (80.0-100.0) fL Plt Count (150-450) k/uL Neutrophils # (1.3-7.7) k/uL Lymphocytes # (1.0-4.8) k/uL PT 47.0 H (9.0-12.0) sec INR 4.8 H (<1.2) Sodium 136 L (137-145) mmol/L Potassium 3.4 L (3.5-5.1) mmol/L Chloride 110 H (98-107) mmol/L Carbon Dioxide 20 L (22-30) mmol/L BUN 37 H (9-20) mg/dL Creatinine 1.63 H (0.66-1.25) mg/dL Glucose 108 H (74-99) mg/dL POC Glucose (mg/dL) 136 H (70-110) mg/dL Calcium 7.0 L (8.4-10.2) mg/dL Procalcitonin (0.02-0.09) ng/mL 12/31/22 Range/Units 05:30 WBC 18.5 H (3.8-10.6) k/uL RBC 3.44 L (4.30-5.90) m/uL Hgb 11.5 L (13.0-17.5) gm/dL Hct 36.0 L (39.0-53.0) % MCV 104.5 H (80.0-100.0) fL Plt Count 65 L (150-450) k/uL Neutrophils # 17.4 H (1.3-7.7) k/uL Lymphocytes # 0.4 L (1.0-4.8) k/uL PT (9.0-12.0) sec INR (<1.2) Sodium (137-145) mmol/L Potassium (3.5-5.1) mmol/L Chloride (98-107) mmol/L Carbon Dioxide (22-30) mmol/L BUN (9-20) mg/dL Creatinine (0.66-1.25) mg/dL Glucose (74-99) mg/dL POC Glucose (mg/dL) (70-110) mg/dL Calcium (8.4-10.2) mg/dL Procalcitonin (0.02-0.09) ng/mL Microbiology - Last 24 Hours (Table) 12/30/22 23:47 Urine Culture - Preliminary Urine,Voided Assessment and Plan Assessment: The patient appears to have mild left hydroureteronephrosis due to a 2 mm left UVJ calculus. However, CT scan findings are identical to the CT scan performed in early 2021, raising the question that this is a chronic finding. Urinalysis is suggestive of a UTI. Urine culture is pending. If indeed the patient has a small left distal ureteral calculus, it has a high likelihood of spontaneous passage. (1) Calculus of ureter Current Visit: No Status: Acute Code(s): N20.1 - CALCULUS OF URETER SNOMED Code(s): 06292496 (2) Hydronephrosis with renal and ureteral calculous obstruction Current Visit: Yes Status: Acute Code(s): N13.2 - HYDRONEPHROSIS WITH RENAL AND URETERAL CALCULOUS OBSTRUCTION SNOMED Code(s): 269004423 Plan: Continue tamsulosin. A Alcaraz catheter is in place, draining clear yellow urine. The Alcaraz catheter should be removed as soon as possible, as he will not pass the calculus through the catheter and therefore it is impossible to determine if and when the calculus passes. Continue antibiotics, pending the urine culture result. I will recommend surgery (cystoscopy with stent insertion, possible ureteroscopy) only if the patient's condition fails to continue to improve.
[2022-12-31] MEDS: SODIUM BICARBONATE TAB 650 MG TAB PO SCH ×2 (12:21→20:44)
--- NOTE | 2022-12-31 13:27 | P.PN ---
Subjective Progress Note Date: 12/31/22 Principal diagnosis: Sepsis/C. diff colitis Patient is a 77-year-old male with a past medical history significant for esophageal cancer, patient also have a recent admission at [facility] for pericardial window and the patient was diagnosed and treated for C. diff colitis at that facility subsequently readmission to the hospital with weakness fall and sepsis and he tested positive for C. diff colitis. On today's evaluation her that is 12/31/2022, the patient denies having any fever or any chills the patient is hemodynamically stable no chest pain no shortness of breath or cough abdominal pain has decreased intensity, the patient diarrhea has slowed down no vomiting or urinary symptoms Objective - Vital Signs Vital signs: Vital Signs Temp 98.1 F 12/31/22 12:00 Pulse 58 L 12/31/22 12:00 Resp 15 12/31/22 12:00 BP 103/70 12/31/22 12:00 Pulse Ox 94 L 12/31/22 12:00 FiO2 Intake & Output 12/30/22 12/31/22 12/31/22 18:59 06:59 18:59 Intake Total 2701.416 1699.006 612.144 Output Total 340 660 380 Balance 2361.416 1039.006 232.144 Weight 87 kg Intake: IV 1050 1550 435 Sodium Chloride 0.9% 1, 1050 1500 435 000 ml @ 125 mls/hr IV . Q8H [facility] Rx#:[id number] cefTRIAXone 2 gm In 50 Sodium Chloride 0.9% 50 ml @ 100 mls/hr IVPB Q24H [facility] Rx#:[id number] Intake, IV Titration 1431.416 149.006 57.144 Amount Magnesium Sulfate-D5w Pmx 100 1 gm In Dextrose/Water 1 100ml.bag @ 100 mls/hr IVPB ONCE [facility] Rx#: [id number] Norepinephrine 4 mg In 231.416 149.006 57.144 Sodium Chloride 0.9% 250 ml @ 0.03 MCG/KG/MIN 8. 814 mls/hr IV .Q24H [facility] Rx#:[id number] Piperacillin-Tazobactam 3 100 .375 gm In Sodium Chloride 0.9% 100 ml @ 25 mls/hr IVPB Q8H [facility] Rx#: [id number] Sodium Chloride 0.9% 1, 1000 000 ml @ 999 mls/hr IV . Q1H1M [facility] Rx#:[id number] Oral 220 120 Output: Urine 340 660 380 Other: Voiding Method Indwelling Catheter Indwelling Catheter Indwelling Catheter # Bowel Movements 1 - Exam GENERAL DESCRIPTION: An elderly male lying in bed in no distress RESPIRATORY SYSTEM: Unlabored breathing , decreased breath sounds at bases HEART: S1 S2 regular rate and rhythm , ABDOMEN: Soft , no tenderness EXTREMITIES: No edema feet - Labs CBC & Chem 7: 12/31/22 05:30 12/31/22 05:30 Labs: Abnormal Lab Results - Last 24 Hours (Table) 12/30/22 12/30/22 12/30/22 Range/Units 03:18 16:48 21:16 WBC (3.8-10.6) k/uL RBC (4.30-5.90) m/uL Hgb (13.0-17.5) gm/dL Hct (39.0-53.0) % MCV (80.0-100.0) fL Plt Count (150-450) k/uL Neutrophils # (1.3-7.7) k/uL Lymphocytes # (1.0-4.8) k/uL PT (9.0-12.0) sec INR (<1.2) Sodium (137-145) mmol/L Potassium (3.5-5.1) mmol/L Chloride (98-107) mmol/L Carbon Dioxide (22-30) mmol/L BUN (9-20) mg/dL Creatinine (0.66-1.25) mg/dL Glucose (74-99) mg/dL POC Glucose (mg/dL) 152 H 136 H (70-110) mg/dL Calcium (8.4-10.2) mg/dL Procalcitonin 90.10 H (0.02-0.09) ng/mL 12/31/22 12/31/22 12/31/22 Range/Units 05:30 05:30 05:30 WBC 18.5 H (3.8-10.6) k/uL RBC 3.44 L (4.30-5.90) m/uL Hgb 11.5 L (13.0-17.5) gm/dL Hct 36.0 L (39.0-53.0) % MCV 104.5 H (80.0-100.0) fL Plt Count 65 L (150-450) k/uL Neutrophils # 17.4 H (1.3-7.7) k/uL Lymphocytes # 0.4 L (1.0-4.8) k/uL PT 47.0 H (9.0-12.0) sec INR 4.8 H (<1.2) Sodium 136 L (137-145) mmol/L Potassium 3.4 L (3.5-5.1) mmol/L Chloride 110 H (98-107) mmol/L Carbon Dioxide 20 L (22-30) mmol/L BUN 37 H (9-20) mg/dL Creatinine 1.63 H (0.66-1.25) mg/dL Glucose 108 H (74-99) mg/dL POC Glucose (mg/dL) (70-110) mg/dL Calcium 7.0 L (8.4-10.2) mg/dL Procalcitonin (0.02-0.09) ng/mL 12/31/22 Range/Units 11:03 WBC (3.8-10.6) k/uL RBC (4.30-5.90) m/uL Hgb (13.0-17.5) gm/dL Hct (39.0-53.0) % MCV (80.0-100.0) fL Plt Count (150-450) k/uL Neutrophils # (1.3-7.7) k/uL Lymphocytes # (1.0-4.8) k/uL PT (9.0-12.0) sec INR (<1.2) Sodium (137-145) mmol/L Potassium (3.5-5.1) mmol/L Chloride (98-107) mmol/L Carbon Dioxide (22-30) mmol/L BUN (9-20) mg/dL Creatinine (0.66-1.25) mg/dL Glucose (74-99) mg/dL POC Glucose (mg/dL) 131 H (70-110) mg/dL Calcium (8.4-10.2) mg/dL Procalcitonin (0.02-0.09) ng/mL Microbiology - Last 24 Hours (Table) 12/30/22 03:18 Blood Culture - Preliminary Blood 12/30/22 23:47 Urine Culture - Preliminary Urine,Voided Assessment and Plan (1) C. difficile colitis Current Visit: Yes Status: Acute Code(s): A04.72 - ENTEROCOLITIS D/T CLOSTRIDIUM DIFFICILE, NOT SPCF RECUR SNOMED Code(s): 114962467 Plan: 1patient was in the hospital with sepsis/septic shock in this patient with fever elevated white count hypotension requiring pressor support with initial concern for possible complicated UTI however urine showing only 10-49,000 colonies and the patient did have a active C. diff colitis likely recurrent episode 2-patient to continue the vancomycin 250 mg p.o. every 6 hours, however discontinue Rocephin discussed with the admitting team Time with Patient: Less than 30
--- NOTE | 2022-12-31 13:37 | P.PN ---
Subjective Progress Note Date: 12/31/22 77-year-old pleasant male with history of esophageal cancer came in with nausea vomiting and the left lower quadrant 8/10 severe crampy abdominal pain and found to have a 2 mm renal calculus in the UVJ junction. Patient also found to be in acute renal failure with creatinine 1.3 and baseline around 0.579 a started on IV fluids at 75 mL per hour. Patient does have history of for uric stenosis but no history of congestive heart failure there is no echo cardiac M available at this time in the system. Patient denied any chest pain, EKG showed ST-T wave changes in the septal leads. Chest x-ray did show bilateral pleural effusions CT of the abdomen as mentioned above along with the bilateral pleural effusions although there is no infiltrate that is consistent with pneumonia. Patient doesn't have any fever or leukocytosis at this time urine analysis is not available at this time and will be ordered. 12/30/2022 Patient is evaluated today in the intensive care unit. Patient had 3 liters of fluid bolus last night for low blood pressures. Patient had a near syncope incident. Patient is maintained on levophed currently, receiving normal saline and also started on midodrine. Patient was found to have C.Dif colitis and has been started on oral vancomycin. The IV zosyn will be discontinued at this time. Infectious disease is consulted. Patient reports having 3 bowel movements this morning so far. He reports improvement in the abdominal discomfort less crampy and tender. Indwelling catheter in place, urine output about 30 mls/hr. Urology is consulted regarding the left kidney stone and he does have mild left sided hydronephrosis. Recommending to remove the catheter as soon as possible for evaluation of passing the stone. Chest xray today showing bilateral consolidation and pleural effusion correlate for CHF otherwise consider pneumonia. Echocardiogram showing normal LV systolic function, moderate aortic stenosis, mild to moderate regurgitation, mild mitral and tricuspid regurgitatio n. White count remains elevated at 26.7. Hemoglobin stable at 11.1. INR is down to 4.4 and warfarin remains on hold. Sodium is 134, potassium 3.4, magnesium 1.7. BUN 32, creatinine 2.19. Blood pressure is currently 84/65. 12/31/2022 Patient is evaluated today in the intensive care unit. Patient remains on vasopressor support blood pressure has improved 100s systolic. Patient is more awake today and reports improvement in his abdominal discomfort and has had 1 BM overnight. at bedside states that patient was being treated for C.Dif at [place] and was discharged home with antibiotics and was using probiotics when he ran out of antibiotics at home, he became fatigued and had increased di arrhea. Today patients white count has come down to 18.5. Creatinine has improved to 1.63. The urine culture is showing gram negative bacilli and pending final cultures and IV ceftriaxone added by ID and pending final cultures. Review of Systems Constitutional: Reports fatigue no fever Cardio vascular: denied any chest pain, palpitations Gastrointestinal: Reports improved abdominal pain and episode of diarrhea x 1 overnight. Pulmonary: Denied any shortness of breath cough Neurologic denied any new focal deficits Diffuse weakness. All inpatient medications were reviewed and appropriate changes in these medications as dictated in the interval history and assessment and plan. PHYSICAL EXAMINATION: GENERAL: The patient is alert and oriented x3, not in any acute distress. Well developed, well nourished. Fatigued, Pale. HEENT: Pupils are round and equally reacting to light. EOMI. No scleral icterus. No conjunctival pallor. Normocephalic, atraumatic. No pharyngeal erythema. No thyromegaly. CARDIOVASCULAR: S1 and S2 present. No murmurs, rubs, or gallops. PULMONARY: Chest is clear to auscultation, no wheezing or crackles. Diminished. ABDOMEN: Soft, lower quadrant is tender improving, nondistended, normoactive bowel sounds. No palpable organomegaly. MUSCULOSKELETAL: No joint swelling or deformity. EXTREMITIES: No cyanosis, clubbing, or pedal edema. NEUROLOGICAL: Gross neurological examination did not reveal any focal deficits. Diffuse weakness. SKIN: No rashes. Assessment and plan Assessment -Fall and near syncope possibly from dehydration and sepsis/septic shock, patie nt is requiring vasopressor support and was fluid resuscitated. -Acute C. Dif colitis with sepsis present on admission patient has been started on oral vancomycin. Patient was also treated for C.Dif during the previous hospital stay. -Acute renal failure secondary to septic shock. -Acute hypoxic respiratory failure likely from a mild acute CHF exacberation -Left-sided renal calculi likely to pass spontaneously, UTI cannot be ruled out -History of diastolic heart failure with aortic stenosis and mild to moderate aortic regurgitation, EF 50-55%. -Hypomagnesemia magnesium will be replaced -Valvular atrial fibrillation history patient is in atrial fibrillation with controlled ventricular rate -Supratherapeutic INR -Recent pericardial window performed at [facility] 2 weeks ago. -Type 2 diabetes mellitus -COPD without any acute exacerbation -Hyperlipidemia -Hypertension -Benign prostatic hypertrophy -History of esophageal cancer which is in remission at this time DVT prophylaxis: Patient has suprapubic INR GI prophylaxis: Pepcid Do Not Intubate Plan Nephrology consultation IV fluids are dcd Continue oral vancomycin and IV ceftrixone Urine and blood culture pending Replace electrolytes per protocol Monitor PT/INR continue holding warfarin Continue all other supportive care Patient requires close monitoring in intensive care unit with multiple consultations following. The impression and plan of care has been dictated by Nurse Anderson Prac titioner as directed. Dr. Maged MD I have performed a history and physical examination and medical decision making of this patient, discussed the same with the dictator, and agree with the dictators assessment and plan as written, documented as a scribe. Based on total visit time, I have performed more than 50% of this visit. Objective - Vital Signs Vital signs: Vital Signs Temp 98.1 F 12/31/22 08:00 Pulse 55 L 12/31/22 08:15 Resp 21 12/31/22 08:15 BP 95/66 12/31/22 08:15 Pulse Ox 96 12/31/22 08:15 FiO2 Intake & Output 12/30/22 12/31/22 12/31/22 18:59 06:59 18:59 Intake Total 2701.416 1699.006 381.752 Output Total 340 660 180 Balance 2361.416 1039.006 201.752 Weight 87 kg Intake: IV 1050 1550 250 Sodium Chloride 0.9% 1, 1050 1500 250 000 ml @ 125 mls/hr IV . Q8H [facility] Rx#:[id number] cefTRIAXone 2 gm In 50 Sodium Chloride 0.9% 50 ml @ 100 mls/hr IVPB Q24H [facility] Rx#:[id number] Intake, IV Titration 1431.416 149.006 11.752 Amount Magnesium Sulfate-D5w Pmx 100 1 gm In Dextrose/Water 1 100ml.bag @ 100 mls/hr IVPB ONCE ONE Rx#: [id number] Norepinephrine 4 mg In 231.416 149.006 11.752 Sodium Chloride 0.9% 250 ml @ 0.03 MCG/KG/MIN 8. 814 mls/hr IV .Q24H [facility] Rx#:[id number] Piperacillin-Tazobactam 3 100 .375 gm In Sodium Chloride 0.9% 100 ml @ 25 mls/hr IVPB Q8H [facility] Rx#: [id number] Sodium Chloride 0.9% 1, 1000 000 ml @ 999 mls/hr IV . Q1H1M [facility] Rx#:[id number] Oral 220 120 Output: Urine 340 660 180 Other: Voiding Method Indwelling Catheter Indwelling Catheter Indwelling Catheter # Bowel Movements 1 - Labs CBC & Chem 7: 12/31/22 05:30 12/31/22 05:30 Labs: Abnormal Lab Results - Last 24 Hours (Table) 12/30/22 12/30/22 12/30/22 Range/Units 03:18 11:23 16:48 WBC (3.8-10.6) k/uL RBC (4.30-5.90) m/uL Hgb (13.0-17.5) gm/dL Hct (39.0-53.0) % MCV (80.0-100.0) fL Plt Count (150-450) k/uL Neutrophils # (1.3-7.7) k/uL Lymphocytes # (1.0-4.8) k/uL PT (9.0-12.0) sec INR (<1.2) Sodium (137-145) mmol/L Potassium (3.5-5.1) mmol/L Chloride (98-107) mmol/L Carbon Dioxide (22-30) mmol/L BUN (9-20) mg/dL Creatinine (0.66-1.25) mg/dL Glucose (74-99) mg/dL POC Glucose (mg/dL) 141 H 152 H (70-110) mg/dL Calcium (8.4-10.2) mg/dL Procalcitonin 90.10 H (0.02-0.09) ng/mL 12/30/22 12/31/22 12/31/22 Range/Units 21:16 05:30 05:30 WBC (3.8-10.6) k/uL RBC (4.30-5.90) m/uL Hgb (13.0-17.5) gm/dL Hct (39.0-53.0) % MCV (80.0-100.0) fL Plt Count (150-450) k/uL Neutrophils # (1.3-7.7) k/uL Lymphocytes # (1.0-4.8) k/uL PT 47.0 H (9.0-12.0) sec INR 4.8 H (<1.2) Sodium 136 L (137-145) mmol/L Potassium 3.4 L (3.5-5.1) mmol/L Chloride 110 H (98-107) mmol/L Carbon Dioxide 20 L (22-30) mmol/L BUN 37 H (9-20) mg/dL Creatinine 1.63 H (0.66-1.25) mg/dL Glucose 108 H (74-99) mg/dL POC Glucose (mg/dL) 136 H (70-110) mg/dL Calcium 7.0 L (8.4-10.2) mg/dL Procalcitonin (0.02-0.09) ng/mL 12/31/22 Range/Units 05:30 WBC 18.5 H (3.8-10.6) k/uL RBC 3.44 L (4.30-5.90) m/uL Hgb 11.5 L (13.0-17.5) gm/dL Hct 36.0 L (39.0-53.0) % MCV 104.5 H (80.0-100.0) fL Plt Count 65 L (150-450) k/uL Neutrophils # 17.4 H (1.3-7.7) k/uL Lymphocytes # 0.4 L (1.0-4.8) k/uL PT (9.0-12.0) sec INR (<1.2) Sodium (137-145) mmol/L Potassium (3.5-5.1) mmol/L Chloride (98-107) mmol/L Carbon Dioxide (22-30) mmol/L BUN (9-20) mg/dL Creatinine (0.66-1.25) mg/dL Glucose (74-99) mg/dL POC Glucose (mg/dL) (70-110) mg/dL Calcium (8.4-10.2) mg/dL Procalcitonin (0.02-0.09) ng/mL Microbiology - Last 24 Hours (Table) 12/30/22 23:47 Urine Culture - Preliminary Urine,Voided Assessment and Plan Time with Patient: Less than 30
--- NOTE | 2022-12-31 15:10 | PN ---
PROGRESS NOTE SUBJECTIVE: This is a 77-year-old gentleman with history of aortic stenosis, hypertension, dyslipidemia, pericardial effusion status post window, is in the ICU from a combination of problems including hypotension, possible UTI with sepsis and C. difficile infection. This morning, he appears awake, alert, remains in atrial fibrillation with controlled ventricular rate. OBJECTIVE: VITAL SIGNS: On exam, heart rate is 55 beats per minute, blood pressure is 94/66, respiratory rate is 21, O2 saturation is 96% on 2 L. CHEST: Reveals good air entry bilaterally. HEART: Reveals first and second heart sounds. Ejection systolic murmur in the aortic area. ABDOMEN: Soft. MUSCULOSKELETAL: Examination of extremities reveal 1+ edema. Peripheral pulses are felt. MEDICATIONS: The patient is currently on, 1. Aspirin. 2. Lipitor. 3. Ceftriaxone. 4. Vancomycin. 5. Levophed. LABORATORY DATA: Labs showed that the white cell count is elevated at 18, hemoglobin is 11.5. INR is still elevated at 4.8. Potassium is 3.4, creatinine is 1.6. ASSESSMENT: 1. Permanent atrial fibrillation with controlled ventricular rate. 2. Elevated INR. 3. Hypotension. PLAN: I will continue to hold the Coumadin. Continue rest of his medications. MMODL / IJN: [id number] /
[2022-12-31 16:17] LABS: Glucose,Whole Blood 123 mg/dL (70-110)
[2022-12-31] MEDS: ONDANSETRON 4 MG/2 ML VIAL IVP PRN (16:18)
[2022-12-31] MEDS: ATORVASTATIN 40 MG TAB PO SCH (17:00)
[2022-12-31] MEDS ORDERED: SODIUM CHLORIDE 0.9% 500 ML 500 ML IV ONE (19:21)
[2022-12-31 20:09] LABS: Glucose,Whole Blood 120 mg/dL (70-110)
[2022-12-31] MEDS: ASPIRIN 81 MG PO SCH (20:44)
[2022-12-31] MEDS: FAMOTIDINE 20 MG/2 ML VIAL IV SCH (20:44)
[2022-12-31] MEDS: LATANOPROST 0.005% OPHTH DROPS 2.5 ML BTL RIGHT EYE SCH (20:44)
[2023-01-01] MEDS: VANCOMYCIN 125 MG CAPSULE PO SCH ×4 (00:01→18:14)
[2023-01-01 06:30] LABS: Basophils % (A) 0 %; Eosinophils % (A) 0 %; HCT 34.4 % (39.0-53.0); HGB 11.1 gm/dL (13.0-17.5); Hypochromasia Slight; Lymphocytes # (A) 0.3 k/uL (1.0-4.8); Lymphocytes % (A) 2 %; MCH 32.9 pg (25.0-35.0); MCHC 32.3 g/dL (31.0-37.0); MCV 102.1 fL (80.0-100.0); Macrocytosis Slight; Mean Platelet Volume 9.2; Monocytes # (A) 0.5 k/uL (0-1.0); Monocytes % (A) 4 %; Neutrophils # (A) 11.4 k/uL (1.3-7.7); Neutrophils % (A) 93 %; RBC 3.37 m/uL (4.30-5.90); RDW 14.1 % (11.5-15.5); WBC 12.3 k/uL (3.8-10.6)
[2023-01-01 06:34] LABS: Potassium 3.3 mmol/L (3.5-5.1)
[2023-01-01] MEDS: POTASSIUM CHLORIDE ER 20 MEQ TAB.ER PO SCH ×4 (06:49→14:26)
[2023-01-01] MEDS: SODIUM CHLORIDE 0.9% 1,000 ML IV SCH ×2 (06:50→11:00)
[2023-01-01 06:53] LABS: Prothrombin Time 29.6 sec (9.0-12.0)
[2023-01-01 07:00] LABS: Platelet Count 73 k/uL (150-450)
[2023-01-01] MEDS: INSULIN ASPART (NovoLOG) 100 UNIT/ML VIAL SQ SCH ×4 (07:38→22:23)
[2023-01-01] MEDS: MIDODRINE 5 MG TAB PO SCH ×3 (07:38→18:17)
[2023-01-01] MEDS: SODIUM BICARBONATE TAB 650 MG TAB PO SCH ×2 (07:43→21:10)
[2023-01-01] MEDS: ARTIFICIAL TEARS-HYPROMELLOSE DROPS 15 ML BTL LEFT EYE SCH (07:43)
[2023-01-01] MEDS: TAMSULOSIN 0.4 MG CAP.ER.24H PO SCH (09:55)
--- NOTE | 2023-01-01 11:16 | P.PN ---
Subjective Progress Note Date: 01/01/23 Principal diagnosis: Near syncope and hypotension I'm seeing this patient in new consultation today 12/30/2022 in the intensive care unit after being found to be hypotensive on the cardiac stepdown unit. Patient is a 77-year-old white male with past medical history significant for pericardial effusion status post cardiac window at [facility] approximately 2 weeks ago, atrial fibrillation, COPD, diabetes mellitus, GERD, hyperlipidemia, hypertension, history of esophageal CA status post surgery. Patient presented to the emergency room on 12/29/2022 after experiencing a fall at home. The patient reports that when he got up out of the recliner, the room started spinning, and he fell into another chair and the fireplace. Patient denies hitting his head. He is on anticoagulants for his history of A. fib. CT of brain and C-spine without contrast showed no acute intracranial process or fracture. He does admit to some intractable nausea and vomiting while at home. He did have a recent ER visit for left-sided abdominal pain, which was attributed to his known kidney stone. On arrival to the ER, a follow up CT of abdomen and pelvis with contrast showed no evidence of intra-abdominal trauma, stable 1-2 mm calcification in the region of the left UVJ with mild prominence of the left renal collecting system. There was possibility of mild left hydronephrosis. There was also development of a left basilar lung infiltrate with small left pleural effusion, and some cardiomegaly with small pericardial effusion which is smaller compared to previous study. Chest x-ray showed bilateral lower lobe infiltrates and small bibasilar effusions with cardiomegaly. The patient was admitted to the cardiac stepdown unit. Last night, the patient became hypotensive, and was fluid resuscitated with 2.5 L of normal saline. He was ultimately transferred to the intensive care unit, and a norepinephrine infusion was started. The patient is resting in bed, on 2 L nasal cannula, in no acute distress. He is normotensive on a norepinephrine infusion at 0.5 mics per kilogram per minute. Normal saline is infusing at 75 mL per hour. Patient's most recent CBC shows some leukocytosis with a WBC count of 25, hemoglobin 11, hematocrit 33.5, platelets 94,000. Patient's most recent BMP shows a sodium of 135, potassium 3, chloride 104, serum CO2 19, BUN 28, creatinine 2.17, glucose 92. Patient's lactic acid level was elevated at 2.9 and is down to 2. UA shows large amount of leukocyte esterase, many bacteria, and blood. Patient has been empirically covered with Zosyn. He is afebrile. Heart rhythm is atrial fibrillation with slow ventricular response around 50-60 bpm. Troponins were elevated and most recent result is 1.08. Patient denies any chest pain. NT proBNP was elevated at 30,700. INR was supratherapeutic at 5.3. Cardiology is following. Patient will be monitored in the intensive care unit. Reevaluated today on 12/31/2022, patient remains in the ICU, doing well, continues to have diarrhea, seen by infectious disease, kept him on oral vancomycin, and recommended Rocephin for possible urinary tract infection patient remains on norepinephrine at 0.03 mcg/kg/m his IV fluid is 0.9 normal saline at 1 25 mL per hour. His echocardiogram showed moderate aortic stenosis, pro-calcitonin level is significantly elevated at 90.1. Renal functioning is improving today creatinine is down to 1.63, it was 2.19 yesterday and WBC count is coming down 18.5 today compared to 26.7 yesterday. Obviously the patient is responding well to treatment, and no further episodes of syncope or near syncope. Reevaluated today on 01/01/23, patient remains in the ICU, patient is on room air, yesterday I was notified about this patient having low blood pressure and hardly any urine output and this developed shortly after his IV fluid was cut down to KVO. Hence I recommended that the patient gets 500 mL of fluid boluses and maintain his IV fluid at 125 mL per hour. If no improvement with this, then the patient should receive Lasix. However the patient responded well, his urine output picked up shortly after he received fluids patient went off norepinephrin e at 5 PM yesterday. And his renal functioning actually did improve. Creatinine today is 1.45, and it was 1.63 yesterday. Today the patient is off norepinephrine blood pressure is marginal but urine output remains adequate hence the patient is improving to do well with a bit more fluids hence I'm recommending that we continue the fluids but I'm cutting it down to 75 mL per hour because of his underlying cardiac history. Patient continues to have diarrhea but improved, and the patient is receiving vancomycin orally for his C. difficile colitis, and is also receiving Rocephin for UTI. Today the plan is to keep the patient off norepinephrine cut down the fluid and bit but maintain some fluid to make up for his diarrhea and hopefully don't have to go back on norepinephrine and no diuretics are necessary at this point. Otherwise if the patient drops his blood pressure he needs to go back on levo fed again. And that is what happened yesterday. WBC count is 12.3 hemoglobin is 11.1 and INR is 3 electrolytes are normal except for a low potassium of 3.1 and that being addressed echo as per protocol. His BUN is 31 creatinine 1.45, steadily improving. Pulmonary-greco the patient is not developing congestive heart failure he is on room air, and does not seem to be in any distress at this point. Platelets remained low at 73,000. Patient is not receiving any heparin products at present, and his Coumadin has been restarted. Objective - Vital Signs Vital signs: Vital Signs Temp 98 F 01/01/23 08:00 Pulse 64 01/01/23 11:00 Resp 22 01/01/23 11:00 BP 116/73 01/01/23 11:00 Pulse Ox 94 L 01/01/23 11:00 FiO2 100 12/31/22 18:00 Intake & Output 12/31/22 01/01/23 01/01/23 18:59 06:59 18:59 Intake Total 6696.406 9769 810 Output Total 625 885 375 Balance 693.684 895 435 Weight 93.6 kg Intake: IV 555 1770 450 Sodium Chloride 0.9% 1, 455 000 ml @ 125 mls/hr IV . Q8H [facility] Rx#:[id number] Sodium Chloride 0.9% 1, 1250 450 000 ml @ 75 mls/hr IV . [id number] [facility] Rx#:[id number] Sodium Chloride 0.9% 500 100 20 ml 500 ml @ 20 mls/hr IV .Q24H [facility] Rx#:[id number] Sodium Chloride 0.9% 500 500 ml 500 ml @ 999 mls/hr IV .Q31M [facility] Rx#:[id number] Intake, IV Titration 83.684 Amount Norepinephrine 4 mg In 83.684 Sodium Chloride 0.9% 250 ml @ 0.03 MCG/KG/MIN 8. 814 mls/hr IV .Q24H [facility] Rx#:[id number] Oral 680 360 Tube Feeding 10 Output: Urine 625 885 375 Other: Voiding Method Indwelling Catheter Indwelling Catheter Indwelling Catheter # Voids 1 - Exam Physical Exam: Revealed 77-year-old white male in no distress, on room air, off norepinephrine, since 5 PM yesterday. Head: Atraumatic, normocephalic. HEENT:[Neck is supple.] [No neck masses.] [No thyromegaly.] [No JVD.] Chest: [Diminished breath sounds at the bases, no rhonchi and no wheezes Cardiac Exam: [Normal S1 and S2, no S3 gallop, 2/6 systolic murmur thought the precordium Abdomen: [Soft, nontender, no megaly, no rebound, no guarding, normal bowel sounds.] Extremities: [No clubbing, negative edema, no cyanosis.] Neurological Exam: [No focal neurologic deficit.] Alert oriented 3 Psychiatric: Normal mood affect and normal mental status examination. Skin: No rashes - Labs CBC & Chem 7: 01/01/23 06:00 01/01/23 09:28 Labs: Abnormal Lab Results - Last 24 Hours (Table) 12/31/22 12/31/22 01/01/23 Range/Units 16:15 20:08 06:00 WBC (3.8-10.6) k/uL RBC (4.30-5.90) m/uL Hgb (13.0-17.5) gm/dL Hct (39.0-53.0) % MCV (80.0-100.0) fL Plt Count (150-450) k/uL Neutrophils # (1.3-7.7) k/uL Lymphocytes # (1.0-4.8) k/uL PT 29.6 H (9.0-12.0) sec INR 3.0 H (<1.2) Potassium (3.5-5.1) mmol/L Chloride (98-107) mmol/L Carbon Dioxide (22-30) mmol/L BUN (9-20) mg/dL Creatinine (0.66-1.25) mg/dL POC Glucose (mg/dL) 123 H 120 H (70-110) mg/dL Calcium (8.4-10.2) mg/dL 01/01/23 01/01/23 01/01/23 Range/Units 06:00 06:00 09:28 WBC 12.3 H (3.8-10.6) k/uL RBC 3.37 L (4.30-5.90) m/uL Hgb 11.1 L (13.0-17.5) gm/dL Hct 34.4 L (39.0-53.0) % MCV 102.1 H (80.0-100.0) fL Plt Count 73 L (150-450) k/uL Neutrophils # 11.4 H (1.3-7.7) k/uL Lymphocytes # 0.3 L (1.0-4.8) k/uL PT (9.0-12.0) sec INR (<1.2) Potassium 3.3 L 3.1 L (3.5-5.1) mmol/L Chloride 113 H (98-107) mmol/L Carbon Dioxide 20 L (22-30) mmol/L BUN 31 H (9-20) mg/dL Creatinine 1.45 H (0.66-1.25) mg/dL POC Glucose (mg/dL) (70-110) mg/dL Calcium 7.0 L (8.4-10.2) mg/dL Microbiology - Last 24 Hours (Table) 12/30/22 23:47 Urine Culture - Final Urine,Voided Klebsiella pneumoniae 12/30/22 03:18 Blood Culture - Preliminary Blood Assessment and Plan Assessment: Impression: Fall and near syncope Refractory hypertension to fluids, requiring vasopressors, patient has been off norepinephrine since 5 PM yesterday. Acute hypoxic respiratory failure secondary to mild diastolic congestive heart failure with small pleural effusions Acute kidney injury with ureterolithiasis, steadily improving with cautious hydration. Continue to slowly hydrate the patient and avoid diuretics for now. Chronic atrial fibrillation with controlled rate Aortic stenosis with systolic ejection murmur History of pericardial effusion requiring pericardial window 2 weeks ago at [place] in the [facility] Underlying COPD History of esophageal cancer Recommendation: Cut down IV fluid to 75 mL per hour, from 1 25 mL/h and continue to monitor blood pressure as well as output Keep patient off norepinephrine Try to avoid diuretics at this point as long as his blood pressure is marginal Transfer patient to a monitored bed on selective Continue to monitor his I's and O's closely and his diarrhea Continue antibiotics Continue oral vancomycin We will continue to follow Time with Patient: Less than 30
[2023-01-01] MEDS ORDERED: Potassium Replacement Protocol 1 EACH MISC MISCELLANE PRN (11:24)
[2023-01-01] MEDS ORDERED: FUROSEMIDE 10 MG/ML 4 ML VIAL IV STA (11:26)
--- NOTE | 2023-01-01 11:27 | P.PN ---
Subjective Patient is seen in follow-up for acute kidney injury. Renal function improving. Receiving IV fluids. Off vasopressors. Oral intake poor. Vital signs are stable. General: No acute distress. HEENT: Head exam is unremarkable. LUNGS: No audible rhonchi or wheezes. HEART: Rate and Rhythm are regular. ABDOMEN: Nontender. EXTREMITITES: 1+ edema. Objective - Vital Signs Vital signs: Vital Signs Temp 98 F 01/01/23 08:00 Pulse 64 01/01/23 11:00 Resp 22 01/01/23 11:00 BP 116/73 01/01/23 11:00 Pulse Ox 94 L 01/01/23 11:00 FiO2 100 12/31/22 18:00 Intake & Output 12/31/22 01/01/23 01/01/23 18:59 06:59 18:59 Intake Total 9543.625 3051 860 Output Total 625 885 405 Balance 693.684 895 455 Weight 93.6 kg Intake: IV 555 1770 500 Sodium Chloride 0.9% 1, 455 000 ml @ 125 mls/hr IV . Q8H [facility] Rx#:[id number] Sodium Chloride 0.9% 1, 1250 500 000 ml @ 50 mls/hr IV . Q20H [facility] Rx#:[id number] Sodium Chloride 0.9% 500 100 20 ml 500 ml @ 20 mls/hr IV .Q24H [facility] Rx#:[id number] Sodium Chloride 0.9% 500 500 ml 500 ml @ 999 mls/hr IV .Q31M [facility] Rx#:[id number] Intake, IV Titration 83.684 Amount Norepinephrine 4 mg In 83.684 Sodium Chloride 0.9% 250 ml @ 0.03 MCG/KG/MIN 8. 814 mls/hr IV .Q24H [facility] Rx#:[id number] Oral 680 360 Tube Feeding 10 Output: Urine 625 885 405 Other: Voiding Method Indwelling Catheter Indwelling Catheter Indwelling Catheter # Voids 1 - Labs CBC & Chem 7: 01/01/23 06:00 01/01/23 09:28 Labs: Abnormal Lab Results - Last 24 Hours (Table) 12/31/22 12/31/22 01/01/23 Range/Units 16:15 20:08 06:00 WBC (3.8-10.6) k/uL RBC (4.30-5.90) m/uL Hgb (13.0-17.5) gm/dL Hct (39.0-53.0) % MCV (80.0-100.0) fL Plt Count (150-450) k/uL Neutrophils # (1.3-7.7) k/uL Lymphocytes # (1.0-4.8) k/uL PT 29.6 H (9.0-12.0) sec INR 3.0 H (<1.2) Potassium (3.5-5.1) mmol/L Chloride (98-107) mmol/L Carbon Dioxide (22-30) mmol/L BUN (9-20) mg/dL Creatinine (0.66-1.25) mg/dL POC Glucose (mg/dL) 123 H 120 H (70-110) mg/dL Calcium (8.4-10.2) mg/dL 01/01/23 01/01/23 01/01/23 Range/Units 06:00 06:00 09:28 WBC 12.3 H (3.8-10.6) k/uL RBC 3.37 L (4.30-5.90) m/uL Hgb 11.1 L (13.0-17.5) gm/dL Hct 34.4 L (39.0-53.0) % MCV 102.1 H (80.0-100.0) fL Plt Count 73 L (150-450) k/uL Neutrophils # 11.4 H (1.3-7.7) k/uL Lymphocytes # 0.3 L (1.0-4.8) k/uL PT (9.0-12.0) sec INR (<1.2) Potassium 3.3 L 3.1 L (3.5-5.1) mmol/L Chloride 113 H (98-107) mmol/L Carbon Dioxide 20 L (22-30) mmol/L BUN 31 H (9-20) mg/dL Creatinine 1.45 H (0.66-1.25) mg/dL POC Glucose (mg/dL) (70-110) mg/dL Calcium 7.0 L (8.4-10.2) mg/dL Microbiology - Last 24 Hours (Table) 12/30/22 23:47 Urine Culture - Final Urine,Voided Klebsiella pneumoniae 12/30/22 03:18 Blood Culture - Preliminary Blood Assessment and Plan Plan: Assessment: 1. Acute kidney injury secondary to ATN secondary to septic shock. Also received IV contrast on 12/29/2022. Creatinine peaked at 2.1 and this admission and is 1.45 today. Baseline creatinine near 1. No hydronephrosis on CT. 2. Septic shock secondary to C. diff colitis on Levophed. On oral vancomycin. ID following. Klebsiella UTI s/p abx. 3. Chronic diastolic CHF with moderate aortic stenosis and [id number] aortic regurgitation. 4. Left hydronephrosis due to calculus. Urology following. 5. Hypokalemia from poor intake. Replaced. 6. Metabolic acidosis secondary to lactic acidosis, acute kidney injury, IV fluids and GI losses. On po bicarb. Plan: Lasix 40 mg IV once today. Encourage oral intake. Replace potassium. Avoid nephrotoxins. Continue to monitor renal function and urine output. Hold midodrine for systolic blood pressure greater than 110.
[2023-01-01 11:42] LABS: Glucose,Whole Blood 85 mg/dL (70-110)
--- NOTE | 2023-01-01 14:32 | P.PN ---
Subjective Progress Note Date: 01/01/23 Principal diagnosis: Sepsis/C. diff colitis Patient is a 77-year-old male with a past medical history significant for esophageal cancer, patient also have a recent admission at [facility] for pericardial window and the patient was diagnosed and treated for C. diff colitis at that facility subsequently readmission to the hospital with weakness fall and sepsis and he tested positive for C. diff colitis. On today's evaluation her that is 01/01/2023, the patient remains to be afebrile, the patient is hemodynamically stable and is off the pressor support, the patient denies chest pain no shortness of breath or cough abdominal pain has decreased intensity, the patient diarrhea has slowed down and did have 2 bowel movements today per the nursing staff, no vomiting or urinary symptoms Objective - Vital Signs Vital signs: Vital Signs Temp 98 F 01/01/23 08:00 Pulse 64 01/01/23 11:00 Resp 22 01/01/23 11:00 BP 116/73 01/01/23 11:00 Pulse Ox 94 L 01/01/23 11:00 FiO2 100 12/31/22 18:00 Intake & Output 12/31/22 01/01/23 01/01/23 18:59 06:59 18:59 Intake Total 6492.795 9440 860 Output Total 625 885 405 Balance 693.684 895 455 Weight 93.6 kg Intake: IV 555 1770 500 Sodium Chloride 0.9% 1, 455 000 ml @ 125 mls/hr IV . Q8H [facility] Rx#:[id number] Sodium Chloride 0.9% 1, 1250 500 000 ml @ 50 mls/hr IV . Q20H [facility] Rx#:[id number] Sodium Chloride 0.9% 500 100 20 ml 500 ml @ 20 mls/hr IV .Q24H [facility] Rx#:[id number] Sodium Chloride 0.9% 500 500 ml 500 ml @ 999 mls/hr IV .Q31M [facility] Rx#:[id number] Intake, IV Titration 83.684 Amount Norepinephrine 4 mg In 83.684 Sodium Chloride 0.9% 250 ml @ 0.03 MCG/KG/MIN 8. 814 mls/hr IV .Q24H [facility] Rx#:[id number] Oral 680 360 Tube Feeding 10 Output: Urine 625 885 405 Other: Voiding Method Indwelling Catheter Indwelling Catheter Indwelling Catheter # Voids 1 - Exam GENERAL DESCRIPTION: An elderly male lying in bed in no distress RESPIRATORY SYSTEM: Unlabored breathing , decreased breath sounds at bases HEART: S1 S2 regular rate and rhythm , ABDOMEN: Soft , no tenderness EXTREMITIES: No edema feet - Labs CBC & Chem 7: 01/01/23 06:00 01/01/23 09:28 Labs: Abnormal Lab Results - Last 24 Hours (Table) 12/31/22 12/31/22 01/01/23 Range/Units 16:15 20:08 06:00 WBC (3.8-10.6) k/uL RBC (4.30-5.90) m/uL Hgb (13.0-17.5) gm/dL Hct (39.0-53.0) % MCV (80.0-100.0) fL Plt Count (150-450) k/uL Neutrophils # (1.3-7.7) k/uL Lymphocytes # (1.0-4.8) k/uL PT 29.6 H (9.0-12.0) sec INR 3.0 H (<1.2) Potassium (3.5-5.1) mmol/L Chloride (98-107) mmol/L Carbon Dioxide (22-30) mmol/L BUN (9-20) mg/dL Creatinine (0.66-1.25) mg/dL POC Glucose (mg/dL) 123 H 120 H (70-110) mg/dL Calcium (8.4-10.2) mg/dL 01/01/23 01/01/23 01/01/23 Range/Units 06:00 06:00 09:28 WBC 12.3 H (3.8-10.6) k/uL RBC 3.37 L (4.30-5.90) m/uL Hgb 11.1 L (13.0-17.5) gm/dL Hct 34.4 L (39.0-53.0) % MCV 102.1 H (80.0-100.0) fL Plt Count 73 L (150-450) k/uL Neutrophils # 11.4 H (1.3-7.7) k/uL Lymphocytes # 0.3 L (1.0-4.8) k/uL PT (9.0-12.0) sec INR (<1.2) Potassium 3.3 L 3.1 L (3.5-5.1) mmol/L Chloride 113 H (98-107) mmol/L Carbon Dioxide 20 L (22-30) mmol/L BUN 31 H (9-20) mg/dL Creatinine 1.45 H (0.66-1.25) mg/dL POC Glucose (mg/dL) (70-110) mg/dL Calcium 7.0 L (8.4-10.2) mg/dL Microbiology - Last 24 Hours (Table) 12/30/22 23:47 Urine Culture - Final Urine,Voided Klebsiella pneumoniae 12/30/22 03:18 Blood Culture - Preliminary Blood Assessment and Plan (1) C. difficile colitis Current Visit: Yes Status: Acute Code(s): A04.72 - ENTEROCOLITIS D/T CLOSTR IDIUM DIFFICILE, NOT SPCF RECUR SNOMED Code(s): 620006958 Plan: 1patient was in the hospital with sepsis/septic shock in this patient with fever elevated white count hypotension requiring pressor support with initial concern for possible complicated UTI however urine showing only 10-49,000 colonies of Klebsiella, and the patient white count is trending down to 12,000, with Likely for active C. diff colitis etiology of his sepsis 2-patient to continue the vancomycin 250 mg p.o. every 6 hours, we will repeat his UA and monitor his clinical course closely Time with Patient: Less than 30
--- NOTE | 2023-01-01 14:48 | P.PN ---
Subjective Progress Note Date: 01/01/23 77-year-old pleasant male with history of esophageal cancer came in with nausea vomiting and the left lower quadrant 8/10 severe crampy abdominal pain and found to have a 2 mm renal calculus in the UVJ junction. Patient also found to be in acute renal failure with creatinine 1.3 and baseline around 0.579 a started on IV fluids at 75 mL per hour. Patient does have history of for uric stenosis but no history of congestive heart failure there is no echo cardiac M available at this time in the system. Patient denied any chest pain, EKG showed ST-T wave changes in the septal leads. Chest x-ray did show bilateral pleural effusions CT of the abdomen as mentioned above along with the bilateral pleural effusions although there is no infiltrate that is consistent with pneumonia. Patient doesn't have any fever or leukocytosis at this time urine analysis is not available at this time and will be ordered. 12/30/2022 Patient is evaluated today in the intensive care unit. Patient had 3 liters of fluid bolus last night for low blood pressures. Patient had a near syncope incident. Patient is maintained on levophed currently, receiving normal saline and also started on midodrine. Patient was found to have C.Dif colitis and has been started on oral vancomycin. The IV zosyn will be discontinued at this time. Infectious disease is consulted. Patient reports having 3 bowel movements this morning so far. He reports improvement in the abdominal discomfort less crampy and tender. Indwelling catheter in place, urine output about 30 mls/hr. Urology is consulted regarding the left kidney stone and he does have mild left sided hydronephrosis. Recommending to remove the catheter as soon as possible for evaluation of passing the stone. Chest xray today showing bilateral consolidation and pleural effusion correlate for CHF otherwise consider pneumonia. Echocardiogram showing normal LV systolic function, moderate aortic stenosis, mild to moderate regurgitation, mild mitral and tricuspid regurgitatio n. White count remains elevated at 26.7. Hemoglobin stable at 11.1. INR is down to 4.4 and warfarin remains on hold. Sodium is 134, potassium 3.4, magnesium 1.7. BUN 32, creatinine 2.19. Blood pressure is currently 84/65. 12/31/2022 Patient is evaluated today in the intensive care unit. Patient remains on vasopressor support blood pressure has improved 100s systolic. Patient is more awake today and reports improvement in his abdominal discomfort and has had 1 BM overnight. at bedside states that patient was being treated for C.Dif at [place] and was discharged home with antibiotics and was using probiotics when he ran out of antibiotics at home, he became fatigued and had increased di arrhea. Today patients white count has come down to 18.5. Creatinine has improved to 1.63. The urine culture is showing gram negative bacilli and pending final cultures and IV ceftriaxone added by ID and pending final cultures. 01/01/2023 Patient evaluated in intensive care unit has been down graded to medical surgical. Reports 1 BM overnight. Abdominal pain has improved. Does complain of sore throat and has some thick coating yellowish white on the tongue and will be treated for oral thrush. White count improved to 12.3, potassium remains low at 3.3 today. BUN 31 creatinine 1.45. Patient will receive an additional 40 meq of potassium today. Warfarin has been resumed INR is 3.0 today. Patient is off vasopressor support and BP currently 116/73. Review of Systems Constitutional: Reports fatigue no fever Cardio vascular: denied any chest pain, palpitations Gastrointestinal: Reports improved abdominal pain and episode of diarrhea x 1 overnight. Pulmonary: Denied any shortness of breath cough Neurologic denied any new focal deficits Diffuse weakness. All inpatient medications were reviewed and appropriate changes in these medications as dictated in the interval history and assessment and plan. PHYSICAL EXAMINATION: GENERAL: The patient is alert and oriented x3, not in any acute distress. Well developed, well nourished. Fatigued, Pale. HEENT: Pupils are round and equally reacting to light. EOMI. No scleral icterus. No conjunctival pallor. Normocephalic, atraumatic. No pharyngeal erythema. No thyromegaly. CARDIOVASCULAR: S1 and S2 present. No murmurs, rubs, or gallops. PULMONARY: Chest is clear to auscultation, no wheezing or crackles. Diminished. ABDOMEN: Soft, lower quadrant is tender improving, nondistended, normoactive bowel sounds. No palpable organomegaly. MUSCULOSKELETAL: No joint swelling or deformity. EXTREMITIES: No cyanosis, clubbing, or pedal edema. NEUROLOGICAL: Gross neurological examination did not reveal any focal deficits. Diffuse weakness. SKIN: No rashes. Assessment and plan Assessment -Fall and near syncope possibly from dehydration and sepsis/septic shock, patient is off vasopressor support currently -Acute C. Dif colitis with sepsis present on admission patient has been started on oral vancomycin. Patient was also treated for C.Dif during the previous hospital stay. -Acute renal failure secondary to septic shock. -Acute hypoxic respiratory failure likely from a mild acute CHF exacberation -Left-sided renal calculi likely to pass spontaneously, urine culture showing klebsiella. -History of diastolic heart failure with aortic stenosis and mild to moderate aortic regurgitation, EF 50-55%. -Hypomagnesemia/hypokalemia -Valvular atrial fibrillation history patient is in atrial fibrillation with controlled ventricular rate -Recent pericardial window performed at [facility] 2 weeks ago. -Type 2 diabetes mellitus -COPD without any acute exacerbation -Hyperlipidemia -Hypertension -Benign prostatic hypertrophy -History of esophageal cancer which is in remission at this time DVT prophylaxis: Resumed on warfarin GI prophylaxis: Pepcid Do Not Intubate Plan Nephrology consultation Continue oral vancomycin and IV ceftrixone Replace electrolytes per protocol Monitor PT/INR warfarin resumed today Nystatin added for oral thrush Continue all other supportive care Down graded to med/surg, PT and OT following and patient will require subacute rehab on discharge. The impression and plan of care has been dictated by Mary Chahal Nurse Practitioner as directed. Dr. Maged MD I have performed a history and physical examination and medical decision making of this patient, discussed the same with the dictator, and agree with the dictators assessment and plan as written, documented as a scribe. Based on total visit time, I have performed more than 50% of this visit. Objective - Vital Signs Vital signs: Vital Signs Temp 98 F 01/01/23 08:00 Pulse 73 01/01/23 14:00 Resp 18 01/01/23 14:00 BP 113/76 01/01/23 14:00 Pulse Ox 92 L 01/01/23 14:00 FiO2 100 12/31/22 18:00 Intake & Output 12/31/22 01/01/23 01/01/23 18:59 06:59 18:59 Intake Total 7507.555 8571 1010 Output Total 625 885 525 Balance 693.684 895 485 Weight 93.6 kg Intake: IV 555 1770 650 Sodium Chloride 0.9% 1, 455 000 ml @ 125 mls/hr IV . Q8H [facility] Rx#:[id number] Sodium Chloride 0.9% 1, 1250 650 000 ml @ 50 mls/hr IV . Q20H [facility] Rx#:[id number] Sodium Chloride 0.9% 500 100 20 ml 500 ml @ 20 mls/hr IV .Q24H [facility] Rx#:[id number] Sodium Chloride 0.9% 500 500 ml 500 ml @ 999 mls/hr IV .Q31M [facility] Rx#:[id number] Intake, IV Titration 83.684 Amount Norepinephrine 4 mg In 83.684 Sodium Chloride 0.9% 250 ml @ 0.03 MCG/KG/MIN 8. 814 mls/hr IV .Q24H [facility] Rx#:[id number] Oral 680 360 Tube Feeding 10 Output: Urine 625 885 525 Other: Voiding Method Indwelling Catheter Indwelling Catheter Indwelling Catheter # Voids 1 - Labs CBC & Chem 7: 01/01/23 06:00 01/01/23 09:28 Labs: Abnormal Lab Results - Last 24 Hours (Table) 12/31/22 12/31/22 01/01/23 Range/Units 16:15 20:08 06:00 WBC (3.8-10.6) k/uL RBC (4.30-5.90) m/uL Hgb (13.0-17.5) gm/dL Hct (39.0-53.0) % MCV (80.0-100.0) fL Plt Count (150-450) k/uL Neutrophils # (1.3-7.7) k/uL Lymphocytes # (1.0-4.8) k/uL PT 29.6 H (9.0-12.0) sec INR 3.0 H (<1.2) Potassium (3.5-5.1) mmol/L Chloride (98-107) mmol/L Carbon Dioxide (22-30) mmol/L BUN (9-20) mg/dL Creatinine (0.66-1.25) mg/dL POC Glucose (mg/dL) 123 H 120 H (70-110) mg/dL Calcium (8.4-10.2) mg/dL 01/01/23 01/01/23 01/01/23 Range/Units 06:00 06:00 09:28 WBC 12.3 H (3.8-10.6) k/uL RBC 3.37 L (4.30-5.90) m/uL Hgb 11.1 L (13.0-17.5) gm/dL Hct 34.4 L (39.0-53.0) % MCV 102.1 H (80.0-100.0) fL Plt Count 73 L (150-450) k/uL Neutrophils # 11.4 H (1.3-7.7) k/uL Lymphocytes # 0.3 L (1.0-4.8) k/uL PT (9.0-12.0) sec INR (<1.2) Potassium 3.3 L 3.1 L (3.5-5.1) mmol/L Chloride 113 H (98-107) mmol/L Carbon Dioxide 20 L (22-30) mmol/L BUN 31 H (9-20) mg/dL Creatinine 1.45 H (0.66-1.25) mg/dL POC Glucose (mg/dL) (70-110) mg/dL Calcium 7.0 L (8.4-10.2) mg/dL Microbiology - Last 24 Hours (Table) 12/30/22 23:47 Urine Culture - Final Urine,Voided Klebsiella pneumoniae 12/30/22 03:18 Blood Culture - Preliminary Blood Assessment and Plan Time with Patient: Less than 30
[2023-01-01 14:53] LABS: Appearance,Urine Clear (Clear); Bacteria,Urine Rare /hpf; Bilirubin,Urine Negative (Negative); Blood,Urine Moderate (Negative); Color,Urine Yellow; Glucose,Urine (UA) Negative (Negative); Ketones,Urine Negative (Negative); Leukocyte Esterase,Urine Moderate (Negative); Mucus,Urine Rare /hpf; Nitrite,Urine Negative (Negative); PH, Urine 5.5 (5.0-8.0); Protein,Urine 1+ (Negative); RBC,Urine 38 /hpf (0-5); Specific Gravity,Urine 1.021 (1.001-1.035); Urobilinogen,Urine <2.0 mg/dL (<2.0); WBC,Urine 15 /hpf (0-5)
[2023-01-01] MEDS: NYSTATIN 100,000 UNIT/ML SUSP 500,000 UNIT/5 ML CUP PO SCH ×3 (15:25→21:11)
[2023-01-01] MEDS ORDERED: WARFARIN 5 MG TAB PO ONE (18:00)
[2023-01-01] MEDS: ATORVASTATIN 40 MG TAB PO SCH (18:14)
--- NOTE | 2023-01-01 20:12 | P.PN ---
Subjective Progress Note Date: 01/01/23 Principal diagnosis: Left hydronephrosis, UTI The patient is a 77-year-old white male with a history of recurrent urolithiasis. He currently reports left-sided abdominal pain. CT scan shows mild left hydronephrosis, which may be chronic. There appears to be a 1-2 mm left distal ureteral calculus, but this is in question as it has been seen on prior imaging studies. Urinalysis is suggestive of possible infection, and urine culture shows Klebsiella pneumoniae. A Alcaraz catheter remains in place, draining blood-tinged urine. He states that his pain is somewhat improved. Objective - Vital Signs Vital signs: Vital Signs Temp 98 F 01/01/23 08:00 Pulse 61 01/01/23 09:00 Resp 20 01/01/23 09:00 BP 85/50 01/01/23 09:00 Pulse Ox 93 L 01/01/23 09:00 FiO2 100 12/31/22 18:00 Intake & Output 12/31/22 01/01/23 01/01/23 18:59 06:59 18:59 Intake Total 5306.398 8366 810 Output Total 625 885 375 Balance 693.684 895 435 Weight 93.6 kg Intake: IV 555 1770 450 Sodium Chloride 0.9% 1, 455 000 ml @ 125 mls/hr IV . Q8H [facility] Rx#:[id number] Sodium Chloride 0.9% 1, 1250 450 000 ml @ 75 mls/hr IV . [id number] [facility] Rx#:[id number] Sodium Chloride 0.9% 500 100 20 ml 500 ml @ 20 mls/hr IV .Q24H [facility] Rx#:[id number] Sodium Chloride 0.9% 500 500 ml 500 ml @ 999 mls/hr IV .Q31M [facility] Rx#:[id number] Intake, IV Titration 83.684 Amount Norepinephrine 4 mg In 83.684 Sodium Chloride 0.9% 250 ml @ 0.03 MCG/KG/MIN 8. 814 mls/hr IV .Q24H [facility] Rx#:[id number] Oral 680 360 Tube Feeding 10 Output: Urine 625 885 375 Other: Voiding Method Indwelling Catheter Indwelling Catheter Indwelling Catheter # Voids 1 - Constitutional General appearance: Present: average body habitus, no acute distress - Gastrointestinal Gastrointestinal Comment(s): Soft, non-distended, no mass. Mild left lower quadrant tenderness, no guarding or rebound. - Genitourinary Genitourinary Comment(s): Normal phallus, normal testes. Alcaraz catheter is draining clear yellow urine. - Psychiatric Psychiatric: Present: A&O x's 3 - Labs CBC & Chem 7: 01/01/23 06:00 01/01/23 09:28 Labs: Abnormal Lab Results - Last 24 Hours (Table) 12/31/22 12/31/22 12/31/22 Range/Units 11:03 16:15 20:08 WBC (3.8-10.6) k/uL RBC (4.30-5.90) m/uL Hgb (13.0-17.5) gm/dL Hct (39.0-53.0) % MCV (80.0-100.0) fL Plt Count (150-450) k/uL Neutrophils # (1.3-7.7) k/uL Lymphocytes # (1.0-4.8) k/uL PT (9.0-12.0) sec INR (<1.2) Potassium (3.5-5.1) mmol/L Chloride (98-107) mmol/L Carbon Dioxide (22-30) mmol/L BUN (9-20) mg/dL Creatinine (0.66-1.25) mg/dL POC Glucose (mg/dL) 131 H 123 H 120 H (70-110) mg/dL Calcium (8.4-10.2) mg/dL 01/01/23 01/01/23 01/01/23 Range/Units 06:00 06:00 06:00 WBC 12.3 H (3.8-10.6) k/uL RBC 3.37 L (4.30-5.90) m/uL Hgb 11.1 L (13.0-17.5) gm/dL Hct 34.4 L (39.0-53.0) % MCV 102.1 H (80.0-100.0) fL Plt Count 73 L (150-450) k/uL Neutrophils # 11.4 H (1.3-7.7) k/uL Lymphocytes # 0.3 L (1.0-4.8) k/uL PT 29.6 H (9.0-12.0) sec INR 3.0 H (<1.2) Potassium 3.3 L (3.5-5.1) mmol/L Chloride 113 H (98-107) mmol/L Carbon Dioxide 20 L (22-30) mmol/L BUN 31 H (9-20) mg/dL Creatinine 1.45 H (0.66-1.25) mg/dL POC Glucose (mg/dL) (70-110) mg/dL Calcium 7.0 L (8.4-10.2) mg/dL 01/01/23 Range/Units 09:28 WBC (3.8-10.6) k/uL RBC (4.30-5.90) m/uL Hgb (13.0-17.5) gm/dL Hct (39.0-53.0) % MCV (80.0-100.0) fL Plt Count (150-450) k/uL Neutrophils # (1.3-7.7) k/uL Lymphocytes # (1.0-4.8) k/uL PT (9.0-12.0) sec INR (<1.2) Potassium 3.1 L (3.5-5.1) mmol/L Chloride (98-107) mmol/L Carbon Dioxide (22-30) mmol/L BUN (9-20) mg/dL Creatinine (0.66-1.25) mg/dL POC Glucose (mg/dL) (70-110) mg/dL Calcium (8.4-10.2) mg/dL Microbiology - Last 24 Hours (Table) 12/30/22 23:47 Urine Culture - Preliminary Urine,Voided Gram Neg Bacilli 12/30/22 03:18 Blood Culture - Preliminary Blood Assessment and Plan Assessment: The patient appears to have mild left hydroureteronephrosis due to a 2 mm left UVJ calculus. However, CT scan findings are identical to the CT scan performed in early 2021, raising the question that this is a chronic finding. Urine culture shows 10-49,000 colonies of Klebsiella pneumoniae. Ceftriaxone has been discontinued, and he is currently receiving vancomycin. If indeed the patient has a small left distal ureteral calculus, it has a high likelihood of sp ontaneous passage. I will defer antibiotic therapy to Dr. Cherry, but given the mild hydronephrosis I believe he has a complicated UTI which should be treated (vancomycin would not be expected to cover Klebsiella pneumoniae). (1) Calculus of ureter Current Visit: No Status: Acute Code(s): N20.1 - CALCULUS OF URETER SNOMED Code(s): 97106392 (2) Hydronephrosis with renal and ureteral calculous obstruction Current Visit: Yes Status: Acute Code(s): N13.2 - HYDRONEPHROSIS WITH RENAL AND URETERAL CALCULOUS OBSTRUCTION SNOMED Code(s): 049682564 Plan: Continue tamsulosin. A Alcaraz catheter is in place, draining clear yellow urine. The Alcaraz catheter should be removed as soon as possible, as he will not pass the calculus through the catheter and therefore it is impossible to determine if and when the calculus passes. I strongly suggest that the patient be given antibiotic coverage for the Klebsiella UTI. I will recommend surgery (cystoscopy with stent insertion, possible ureteroscopy) only if the patient's condition fails to continue to improve.
[2023-01-01] MEDS: ASPIRIN 81 MG PO SCH (21:11)
[2023-01-01] MEDS: FAMOTIDINE 20 MG/2 ML VIAL IV SCH (21:11)
[2023-01-01] MEDS: LATANOPROST 0.005% OPHTH DROPS 2.5 ML BTL RIGHT EYE SCH (21:12)
--- NOTE | 2023-01-01 22:20 | PN ---
PROGRESS NOTE SUBJECTIVE: Evan is a 77-year-old gentleman who is admitted to ICU because of hypotension. He is doing better. Hypotension has resolved, Levophed had been stopped. He is currently on aspirin, Lipitor, and midodrine. Remains in atrial fibrillation with controlled ventricular rate. The patient's INR today is 3 and I am going to resume Coumadin. We will have pharmacy to dose his Coumadin. OBJECTIVE: GENERAL: Comfortable at rest. VITAL SIGNS: Remains in atrial fibrillation with heart rate of 60 beats per minute, blood pressure is 116/72, and respiratory rate is 18. CHEST: Reveals good air entry bilaterally. HEART: Reveals first and second heart sounds, irregular rhythm. ABDOMEN: Soft. EXTREMITIES: Reveal mild edema. LABORATORY DATA: Show a hemoglobin of 11, platelet count is 73, and creatinine is 1.4. ASSESSMENT: 1. Persistent atrial fibrillation with controlled ventricular rate. 2. Hypotension, resolved. 3. Coagulopathy. PLAN: INR is 3. I am going to ask Pharmacy to dose his Coumadin. MMODL / IJN: [id number] /
[2023-01-02] MEDS: VANCOMYCIN 125 MG CAPSULE PO SCH ×4 (00:30→17:40)
[2023-01-02 07:13] LABS: Basophils % (A) 0 %; Eosinophils # (A) 0.1 k/uL (0-0.7); Eosinophils % (A) 1 %; HCT 33.7 % (39.0-53.0); HGB 10.9 gm/dL (13.0-17.5); Hypochromasia Slight; Lymphocytes # (A) 0.3 k/uL (1.0-4.8); Lymphocytes % (A) 4 %; MCH 32.9 pg (25.0-35.0); MCHC 32.5 g/dL (31.0-37.0); MCV 101.4 fL (80.0-100.0); Macrocytosis Slight; Mean Platelet Volume 8.8; Monocytes # (A) 0.6 k/uL (0-1.0); Monocytes % (A) 7 %; Neutrophils % (A) 87 %; RBC 3.33 m/uL (4.30-5.90); RDW 14.1 % (11.5-15.5); WBC 9.2 k/uL (3.8-10.6)
[2023-01-02 07:14] LABS: Platelet Count 82 k/uL (150-450)
[2023-01-02 07:33] LABS: Calcium 7.1 mg/dL (8.4-10.2); Potassium 3.8 mmol/L (3.5-5.1)
[2023-01-02] MEDS: MIDODRINE 5 MG TAB PO SCH ×3 (07:35→17:37)
[2023-01-02 07:37] LABS: INR 2.1 (<1.2)
[2023-01-02] MEDS: SODIUM BICARBONATE TAB 650 MG TAB PO SCH (09:33)
[2023-01-02] MEDS: TAMSULOSIN 0.4 MG CAP.ER.24H PO SCH (09:33)
[2023-01-02] MEDS: INSULIN ASPART (NovoLOG) 100 UNIT/ML VIAL SQ SCH ×3 (09:58→17:36)
[2023-01-02] MEDS ORDERED: CHOLESTYRAMINE (WITH SUGAR) 4 GM PACKET PO SCH (10:00)
[2023-01-02] MEDS: ARTIFICIAL TEARS-HYPROMELLOSE DROPS 15 ML BTL LEFT EYE SCH (10:00)
[2023-01-02] MEDS: NYSTATIN 100,000 UNIT/ML SUSP 500,000 UNIT/5 ML CUP PO SCH ×3 (10:00→17:40)
[2023-01-02] MEDS: SODIUM CHLORIDE 0.9% 1,000 ML IV SCH (10:02)
--- NOTE | 2023-01-02 11:20 | P.PN ---
Subjective Patient is seen in follow-up for acute kidney injury. Renal function improving. Receiving IV fluids. Off vasopressors. Oral intake poor. Alcaraz catheter removed this morning. Vital signs are stable. General: No acute distress. HEENT: Head exam is unremarkable. LUNGS: No audible rhonchi or wheezes. HEART: Rate and Rhythm are regular. ABDOMEN: Nontender. EXTREMITITES: 1+ edema. Objective - Vital Signs Vital signs: Vital Signs Temp 98.0 F 01/02/23 08:00 Pulse 66 01/02/23 10:00 Resp 22 01/02/23 10:00 BP 115/67 01/02/23 10:00 Pulse Ox 95 01/02/23 10:00 FiO2 50 01/01/23 15:00 Intake & Output 01/01/23 01/02/23 01/02/23 18:59 06:59 18:59 Intake Total 1210 150 50 Output Total 665 270 210 Balance 545 -120 -160 Intake: IV 850 150 50 Sodium Chloride 0.9% 1, 850 150 50 000 ml @ 50 mls/hr IV . Q20H [facility] Rx#:[id number] Oral 360 Output: Urine 665 270 210 Other: Voiding Method Indwelling Catheter # Bowel Movements 3 1 - Labs CBC & Chem 7: 01/02/23 06:45 01/02/23 06:45 Labs: Abnormal Lab Results - Last 24 Hours (Table) 01/01/23 01/02/23 01/02/23 Range/Units 14:10 06:45 06:45 RBC 3.33 L (4.30-5.90) m/uL Hgb 10.9 L (13.0-17.5) gm/dL Hct 33.7 L (39.0-53.0) % MCV 101.4 H (80.0-100.0) fL Plt Count 82 L (150-450) k/uL Neutrophils # 8.0 H (1.3-7.7) k/uL Lymphocytes # 0.3 L (1.0-4.8) k/uL PT 21.0 H (9.0-12.0) sec INR 2.1 H (<1.2) Sodium (137-145) mmol/L Chloride (98-107) mmol/L Carbon Dioxide (22-30) mmol/L BUN (9-20) mg/dL Creatinine (0.66-1.25) mg/dL Glucose (74-99) mg/dL Calcium (8.4-10.2) mg/dL Urine Protein 1+ H (Negative) Urine Blood Moderate H (Negative) Ur Leukocyte Esterase Moderate H (Negative) Urine RBC 38 H (0-5) /hpf Urine WBC 15 H (0-5) /hpf Urine Bacteria Rare H (None) /hpf Urine Mucus Rare H (None) /hpf 01/02/23 Range/Units 06:45 RBC (4.30-5.90) m/uL Hgb (13.0-17.5) gm/dL Hct (39.0-53.0) % MCV (80.0-100.0) fL Plt Count (150-450) k/uL Neutrophils # (1.3-7.7) k/uL Lymphocytes # (1.0-4.8) k/uL PT (9.0-12.0) sec INR (<1.2) Sodium 136 L (137-145) mmol/L Chloride 112 H (98-107) mmol/L Carbon Dioxide 20 L (22-30) mmol/L BUN 25 H (9-20) mg/dL Creatinine 1.35 H (0.66-1.25) mg/dL Glucose 100 H (74-99) mg/dL Calcium 7.1 L (8.4-10.2) mg/dL Urine Protein (Negative) Urine Blood (Negative) Ur Leukocyte Esterase (Negative) Urine RBC (0-5) /hpf Urine WBC (0-5) /hpf Urine Bacteria (None) /hpf Urine Mucus (None) /hpf Microbiology - Last 24 Hours (Table) 12/30/22 03:18 Blood Culture - Preliminary Blood 01/01/23 14:10 Urine Culture - Preliminary Urine,Voided 12/30/22 23:47 Urine Culture - Final Urine,Voided Klebsiella pneumoniae Assessment and Plan Plan: Assessment: 1. Acute kidney injury secondary to ATN secondary to septic shock. Also received IV contrast on 12/29/2022. Creatinine peaked at 2.1 and this admission and is 1.35 today. Baseline creatinine near 1. No hydronephrosis on CT. 2. Septic shock secondary to C. diff colitis on Levophed. On oral vancomycin. ID following. Klebsiella UTI s/p abx. 3. Chronic diastolic CHF with moderate aortic stenosis and [id number] aortic regurgitation. 4. Left hydronephrosis due to calculus. Urology following. 5. Hypokalemia from poor intake. Replaced. Improved. 6. Metabolic acidosis secondary to lactic acidosis, acute kidney injury, IV fluids and GI losses. On po bicarb. Plan: s/p Lasix 40 mg IV 01/01/23. Heplock IVFs. Encourage oral intake. Avoid nephrotoxins. Continue to monitor renal function and urine output. Hold midodrine for systolic blood pressure greater than 110.
[2023-01-02] MEDS: ONDANSETRON 4 MG/2 ML VIAL IVP PRN (11:41)
[2023-01-02 11:54] LABS: Glucose,Whole Blood 123 mg/dL (70-110)
--- NOTE | 2023-01-02 12:08 | P.PN ---
Subjective Progress Note Date: 01/02/23 Principal diagnosis: Near syncope and hypotension I'm seeing this patient in new consultation today 12/30/2022 in the intensive care unit after being found to be hypotensive on the cardiac stepdown unit. Patient is a 77-year-old white male with past medical history significant for pericardial effusion status post cardiac window at [facility] approximately 2 weeks ago, atrial fibrillation, COPD, diabetes mellitus, GERD, hyperlipidemia, hypertension, history of esophageal CA status post surgery. Patient presented to the emergency room on 12/29/2022 after experiencing a fall at home. The patient reports that when he got up out of the recliner, the room started spinning, and he fell into another chair and the fireplace. Patient denies hitting his head. He is on anticoagulants for his history of A. fib. CT of brain and C-spine without contrast showed no acute intracranial process or fracture. He does admit to some intractable nausea and vomiting while at home. He did have a recent ER visit for left-sided abdominal pain, which was attributed to his known kidney stone. On arrival to the ER, a follow up CT of abdomen and pelvis with contrast showed no evidence of intra-abdominal trauma, stable 1-2 mm calcification in the region of the left UVJ with mild prominence of the left renal collecting system. There was possibility of mild left hydronephrosis. There was also development of a left basilar lung infiltrate with small left pleural effusion, and some cardiomegaly with small pericardial effusion which is smaller compared to previous study. Chest x-ray showed bilateral lower lobe infiltrates and small bibasilar effusions with cardiomegaly. The patient was admitted to the cardiac stepdown unit. Last night, the patient became hypotensive, and was fluid resuscitated with 2.5 L of normal saline. He was ultimately transferred to the intensive care unit, and a norepinephrine infusion was started. The patient is resting in bed, on 2 L nasal cannula, in no acute distress. He is normotensive on a norepinephrine infusion at 0.5 mics per kilogram per minute. Normal saline is infusing at 75 mL per hour. Patient's most recent CBC shows some leukocytosis with a WBC count of 25, hemoglobin 11, hematocrit 33.5, platelets 94,000. Patient's most recent BMP shows a sodium of 135, potassium 3, chloride 104, serum CO2 19, BUN 28, creatinine 2.17, glucose 92. Patient's lactic acid level was elevated at 2.9 and is down to 2. UA shows large amount of leukocyte esterase, many bacteria, and blood. Patient has been empirically covered with Zosyn. He is afebrile. Heart rhythm is atrial fibrillation with slow ventricular response around 50-60 bpm. Troponins were elevated and most recent result is 1.08. Patient denies any chest pain. NT proBNP was elevated at 30,700. INR was supratherapeutic at 5.3. Cardiology is following. Patient will be monitored in the intensive care unit. Reevaluated today on 12/31/2022, patient remains in the ICU, doing well, continues to have diarrhea, seen by infectious disease, kept him on oral vancomycin, and recommended Rocephin for possible urinary tract infection patient remains on norepinephrine at 0.03 mcg/kg/m his IV fluid is 0.9 normal saline at 1 25 mL per hour. His echocardiogram showed moderate aortic stenosis, pro-calcitonin level is significantly elevated at 90.1. Renal functioning is improving today creatinine is down to 1.63, it was 2.19 yesterday and WBC count is coming down 18.5 today compared to 26.7 yesterday. Obviously the patient is responding well to treatment, and no further episodes of syncope or near syncope. Reevaluated today on 01/01/23, patient remains in the ICU, patient is on room air, yesterday I was notified about this patient having low blood pressure and hardly any urine output and this developed shortly after his IV fluid was cut down to KVO. Hence I recommended that the patient gets 500 mL of fluid boluses and maintain his IV fluid at 125 mL per hour. If no improvement with this, then the patient should receive Lasix. However the patient responded well, his urine output picked up shortly after he received fluids patient went off norepinephrin e at 5 PM yesterday. And his renal functioning actually did improve. Creatinine today is 1.45, and it was 1.63 yesterday. Today the patient is off norepinephrine blood pressure is marginal but urine output remains adequate hence the patient is improving to do well with a bit more fluids hence I'm recommending that we continue the fluids but I'm cutting it down to 75 mL per hour because of his underlying cardiac history. Patient continues to have diarrhea but improved, and the patient is receiving vancomycin orally for his C. difficile colitis, and is also receiving Rocephin for UTI. Today the plan is to keep the patient off norepinephrine cut down the fluid and bit but maintain some fluid to make up for his diarrhea and hopefully don't have to go back on norepinephrine and no diuretics are necessary at this point. Otherwise if the patient drops his blood pressure he needs to go back on levo fed again. And that is what happened yesterday. WBC count is 12.3 hemoglobin is 11.1 and INR is 3 electrolytes are normal except for a low potassium of 3.1 and that being addressed echo as per protocol. His BUN is 31 creatinine 1.45, steadily improving. Pulmonary-greco the patient is not developing congestive heart failure he is on room air, and does not seem to be in any distress at this point. Platelets remained low at 73,000. Patient is not receiving any heparin products at present, and his Coumadin has been restarted. Reevaluated today on 01/02/2023, patient remains in the ICU, he is actually an overflow, could be sent to a monitor bed on the cardiac floor, patient is doing much better, nonetheless continues to have intermittent episodes of diarrhea. Patient remains off pressors, IV fluids at 50 mL per hour 0.9 normal saline. Patient is on room air, not in any distress. Labs today showed relatively normal CBC WBC count is normal hemoglobin is 10.9 INR is 2.1 electrolytes are normal BUN is 25 creatinine 1.35, steadily improving. Objective - Vital Signs Vital signs: Vital Signs Temp 98.0 F 01/02/23 08:00 Pulse 59 L 01/02/23 11:00 Resp 20 01/02/23 11:00 BP 134/77 01/02/23 11:00 Pulse Ox 93 L 01/02/23 11:00 FiO2 50 01/01/23 15:00 Intake & Output 01/01/23 01/02/23 01/02/23 18:59 06:59 18:59 Intake Total 1210 150 200 Output Total 665 270 210 Balance 545 -120 -10 Intake: IV 850 150 200 Sodium Chloride 0.9% 1, 850 150 200 000 ml @ 50 mls/hr IV . Q20H [facility] Rx#:[id number] Oral 360 Output: Urine 665 270 210 Other: Voiding Method Indwelling Catheter # Bowel Movements 3 1 - Exam Physical Exam: Revealed 77-year-old white male in no distress, on room air, Head: Atraumatic, normocephalic. HEENT:[Neck is supple.] [No neck masses.] [No thyromegaly.] [No JVD.] Chest: [Diminished breath sounds at the bases, no rhonchi and no wheezes Cardiac Exam: [Normal S1 and S2, no S3 gallop, 2/6 systolic murmur thought the precordium Abdomen: [Soft, nontender, no megaly, no rebound, no guarding, normal bowel sounds.] Extremities: [No clubbing, 1+ bipedal edema, no cyanosis.] Neurological Exam: [No focal neurologic deficit.] Alert oriented 3 Psychiatric: Normal mood affect and normal mental status examination. Skin: No rashes - Labs CBC & Chem 7: 01/02/23 06:45 01/02/23 06:45 Labs: Abnormal Lab Results - Last 24 Hours (Table) 01/01/23 01/02/23 01/02/23 Range/Units 14:10 06:45 06:45 RBC 3.33 L (4.30-5.90) m/uL Hgb 10.9 L (13.0-17.5) gm/dL Hct 33.7 L (39.0-53.0) % MCV 101.4 H (80.0-100.0) fL Plt Count 82 L (150-450) k/uL Neutrophils # 8.0 H (1.3-7.7) k/uL Lymphocytes # 0.3 L (1.0-4.8) k/uL PT 21.0 H (9.0-12.0) sec INR 2.1 H (<1.2) Sodium (137-145) mmol/L Chloride (98-107) mmol/L Carbon Dioxide (22-30) mmol/L BUN (9-20) mg/dL Creatinine (0.66-1.25) mg/dL Glucose (74-99) mg/dL POC Glucose (mg/dL) (70-110) mg/dL Calcium (8.4-10.2) mg/dL Urine Protein 1+ H (Negative) Urine Blood Moderate H (Negative) Ur Leukocyte Esterase Moderate H (Negative) Urine RBC 38 H (0-5) /hpf Urine WBC 15 H (0-5) /hpf Urine Bacteria Rare H (None) /hpf Urine Mucus Rare H (None) /hpf 01/02/23 01/02/23 Range/Units 06:45 11:52 RBC (4.30-5.90) m/uL Hgb (13.0-17.5) gm/dL Hct (39.0-53.0) % MCV (80.0-100.0) fL Plt Count (150-450) k/uL Neutrophils # (1.3-7.7) k/uL Lymphocytes # (1.0-4.8) k/uL PT (9.0-12.0) sec INR (<1.2) Sodium 136 L (137-145) mmol/L Chloride 112 H (98-107) mmol/L Carbon Dioxide 20 L (22-30) mmol/L BUN 25 H (9-20) mg/dL Creatinine 1.35 H (0.66-1.25) mg/dL Glucose 100 H (74-99) mg/dL POC Glucose (mg/dL) 123 H (70-110) mg/dL Calcium 7.1 L (8.4-10.2) mg/dL Urine Protein (Negative) Urine Blood (Negative) Ur Leukocyte Esterase (Negative) Urine RBC (0-5) /hpf Urine WBC (0-5) /hpf Urine Bacteria (None) /hpf Urine Mucus (None) /hpf Microbiology - Last 24 Hours (Table) 12/30/22 03:18 Blood Culture - Preliminary Blood 01/01/23 14:10 Urine Culture - Preliminary Urine,Voided 12/30/22 23:47 Urine Culture - Final Urine,Voided Klebsiella pneumoniae Assessment and Plan Assessment: Impression: Fall and near syncope Refractory hypotension to fluids, requiring vasopressors, almost for 1 day, presently remains off norepinephrine Acute hypoxic respiratory failure secondary to mild diastolic congestive heart failure with small pleural effusions Acute kidney injury with ureterolithiasis, steadily improving with cautious hydration. IV fluids at 50 mL per hour. Off diuretics for now. Chronic atrial fibrillation with controlled rate Aortic stenosis with systolic ejection murmur History of pericardial effusion requiring pericardial window 2 weeks ago at [facility] Underlying COPD History of esophageal cancer Recommendation: Continue IV fluid at 50 mL per hour No need for diuretics at this point, patient has good urine output on his own. Transfer patient to a monitored bed on selective Continue to monitor his I's and O's closely and his diarrhea Continue antibiotics Continue oral vancomycin We will continue to follow, while in ICU Time with Patient: Less than 30
--- NOTE | 2023-01-02 13:29 | P.PN ---
Subjective Progress Note Date: 01/02/23 History of present illness: This is a 77-year-old gentleman admitted to the ICU because of hypotension. H ypotension has resolved and he has been off the Levophed. He is currently on aspirin, Lipitor and midodrine. He remains in atrial fibrillation with controlled ventricular rate. He is waiting for a bed on the cardiac stepdown unit. INR is 2.1. Hemoglobin 10.9. BUN 25 creatinine 1.35. Physical examination: Gen: This is a 77-year-old male. He set up in chair and appears to be comfortable. No acute distress. VS: reviewed HEENT: Head is atraumatic, normocephalic. Pupils equal, round. Sclerae is anicteric. . LUNGS: Good air entry bilaterally. No intercostal retractions. HEART: Irregular rate and rhythm. EXTREMITIES: Mild pedal edema. NEUROLOGICAL: Patient is awake, alert and oriented x3. Assessment: Persistent atrial fibrillation with controlled ventricular rate Hypotension resolved Coagulopathy Plan: Continue patient's current cardiac medications Patient is waiting for a bed on the cardiac stepdown unit Pharmacy is dosing Coumadin Further recommendations to follow based upon clinical course Nurse practitioner note has been reviewed, I agree with documented findings and plan of care. Patient was seen and examined. Objective - Vital Signs Vital signs: Vital Signs Temp 98.0 F 01/02/23 08:00 Pulse 65 01/02/23 12:00 Resp 22 01/02/23 12:00 BP 134/77 01/02/23 12:00 Pulse Ox 93 L 01/02/23 11:00 FiO2 50 01/01/23 15:00 Intake & Output 01/01/23 01/02/23 01/02/23 18:59 06:59 18:59 Intake Total 1210 150 200 Output Total 665 270 210 Balance 545 -120 -10 Intake: IV 850 150 200 Sodium Chloride 0.9% 1, 850 150 200 000 ml @ 50 mls/hr IV . Q20H [facility] Rx#:[id number] Oral 360 Output: Urine 665 270 210 Other: Voiding Method Indwelling Catheter # Bowel Movements 3 1 - Labs CBC & Chem 7: 01/02/23 06:45 01/02/23 06:45 Labs: Abnormal Lab Results - Last 24 Hours (Table) 01/01/23 01/02/23 01/02/23 Range/Units 14:10 06:45 06:45 RBC 3.33 L (4.30-5.90) m/uL Hgb 10.9 L (13.0-17.5) gm/dL Hct 33.7 L (39.0-53.0) % MCV 101.4 H (80.0-100.0) fL Plt Count 82 L (150-450) k/uL Neutrophils # 8.0 H (1.3-7.7) k/uL Lymphocytes # 0.3 L (1.0-4.8) k/uL PT 21.0 H (9.0-12.0) sec INR 2.1 H (<1.2) Sodium (137-145) mmol/L Chloride (98-107) mmol/L Carbon Dioxide (22-30) mmol/L BUN (9-20) mg/dL Creatinine (0.66-1.25) mg/dL Glucose (74-99) mg/dL POC Glucose (mg/dL) (70-110) mg/dL Calcium (8.4-10.2) mg/dL Urine Protein 1+ H (Negative) Urine Blood Moderate H (Negative) Ur Leukocyte Esterase Moderate H (Negative) Urine RBC 38 H (0-5) /hpf Urine WBC 15 H (0-5) /hpf Urine Bacteria Rare H (None) /hpf Urine Mucus Rare H (None) /hpf 01/02/23 01/02/23 Range/Units 06:45 11:52 RBC (4.30-5.90) m/uL Hgb (13.0-17.5) gm/dL Hct (39.0-53.0) % MCV (80.0-100.0) fL Plt Count (150-450) k/uL Neutrophils # (1.3-7.7) k/uL Lymphocytes # (1.0-4.8) k/uL PT (9.0-12.0) sec INR (<1.2) Sodium 136 L (137-145) mmol/L Chloride 112 H (98-107) mmol/L Carbon Dioxide 20 L (22-30) mmol/L BUN 25 H (9-20) mg/dL Creatinine 1.35 H (0.66-1.25) mg/dL Glucose 100 H (74-99) mg/dL POC Glucose (mg/dL) 123 H (70-110) mg/dL Calcium 7.1 L (8.4-10.2) mg/dL Urine Protein (Negative) Urine Blood (Negative) Ur Leukocyte Esterase (Negative) Urine RBC (0-5) /hpf Urine WBC (0-5) /hpf Urine Bacteria (None) /hpf Urine Mucus (None) /hpf Microbiology - Last 24 Hours (Table) 12/30/22 03:18 Blood Culture - Preliminary Blood 01/01/23 14:10 Urine Culture - Preliminary Urine,Voided 12/30/22 23:47 Urine Culture - Final Urine,Voided Klebsiella pneumoniae
--- NOTE | 2023-01-02 15:08 | P.PN ---
Subjective Progress Note Date: 01/02/23 Principal diagnosis: Sepsis/C. diff colitis Patient is a 77-year-old male with a past medical history significant for esophageal cancer, patient also have a recent admission at [facility] for pericardial window and the patient was diagnosed and treated for C. diff colitis at that facility subsequently readmission to the hospital with weakness fall and sepsis and he tested positive for C. diff colitis. On today's evaluation her that is 01/02/2023, the patient continues to be afebrile, the patient is hemodynamically stable and not requiring any pressor support, the patient denies chest pain no shortness of breath or cough abdominal pain has decreased intensity, the patient diarrhea has slowed down and patient had been complaining of some nausea after taking oral pills this morning Objective - Vital Signs Vital signs: Vital Signs Temp 98.0 F 01/02/23 08:00 Pulse 66 01/02/23 10:00 Resp 22 01/02/23 10:00 BP 115/67 01/02/23 10:00 Pulse Ox 95 01/02/23 10:00 FiO2 50 01/01/23 15:00 Intake & Output 01/01/23 01/02/23 01/02/23 18:59 06:59 18:59 Intake Total 1210 150 50 Output Total 665 270 210 Balance 545 -120 -160 Intake: IV 850 150 50 Sodium Chloride 0.9% 1, 850 150 50 000 ml @ 50 mls/hr IV . Q20H [facility] Rx#:[id number] Oral 360 Output: Urine 665 270 210 Other: Voiding Method Indwelling Catheter # Bowel Movements 3 1 - Exam GENERAL DESCRIPTION: An elderly male lying in bed in no distress RESPIRATORY SYSTEM: Unlabored breathing , decreased breath sounds at bases HEART: S1 S2 regular rate and rhythm , ABDOMEN: Soft , no tenderness EXTREMITIES: No edema feet - Labs CBC & Chem 7: 01/02/23 06:45 01/02/23 06:45 Labs: Abnormal Lab Results - Last 24 Hours (Table) 01/01/23 01/02/23 01/02/23 Range/Units 14:10 06:45 06:45 RBC 3.33 L (4.30-5.90) m/uL Hgb 10.9 L (13.0-17.5) gm/dL Hct 33.7 L (39.0-53.0) % MCV 101.4 H (80.0-100.0) fL Plt Count 82 L (150-450) k/uL Neutrophils # 8.0 H (1.3-7.7) k/uL Lymphocytes # 0.3 L (1.0-4.8) k/uL PT 21.0 H (9.0-12.0) sec INR 2.1 H (<1.2) Sodium (137-145) mmol/L Chloride (98-107) mmol/L Carbon Dioxide (22-30) mmol/L BUN (9-20) mg/dL Creatinine (0.66-1.25) mg/dL Glucose (74-99) mg/dL Calcium (8.4-10.2) mg/dL Urine Protein 1+ H (Negative) Urine Blood Moderate H (Negative) Ur Leukocyte Esterase Moderate H (Negative) Urine RBC 38 H (0-5) /hpf Urine WBC 15 H (0-5) /hpf Urine Bacteria Rare H (None) /hpf Urine Mucus Rare H (None) /hpf 01/02/23 Range/Units 06:45 RBC (4.30-5.90) m/uL Hgb (13.0-17.5) gm/dL Hct (39.0-53.0) % MCV (80.0-100.0) fL Plt Count (150-450) k/uL Neutrophils # (1.3-7.7) k/uL Lymphocytes # (1.0-4.8) k/uL PT (9.0-12.0) sec INR (<1.2) Sodium 136 L (137-145) mmol/L Chloride 112 H (98-107) mmol/L Carbon Dioxide 20 L (22-30) mmol/L BUN 25 H (9-20) mg/dL Creatinine 1.35 H (0.66-1.25) mg/dL Glucose 100 H (74-99) mg/dL Calcium 7.1 L (8.4-10.2) mg/dL Urine Protein (Negative) Urine Blood (Negative) Ur Leukocyte Esterase (Negative) Urine RBC (0-5) /hpf Urine WBC (0-5) /hpf Urine Bacteria (None) /hpf Urine Mucus (None) /hpf Microbiology - Last 24 Hours (Table) 12/30/22 03:18 Blood Culture - Preliminary Blood 01/01/23 14:10 Urine Culture - Preliminary Urine,Voided 12/30/22 23:47 Urine Culture - Final Urine,Voided Klebsiella pneumoniae Assessment and Plan (1) C. difficile colitis Current Visit: Yes Status: Acute Code(s): A04.72 - ENTEROCOLITIS D/T CLOSTRIDIUM DIFFICILE, NOT SPCF RECUR SNOMED Code(s): 867960646 Plan: 1patient was in the hospital with sepsis/septic shock in this patient with fever elevated white count hypotension requiring pressor support with initial concern for possible complicated UTI however urine showing only 10-49,000 colonies of Klebsiella, and the patient white count has normalized as of 01/02/2023, likely active C. diff colitis etiology of his sepsis 2-patient seemed to have shown clinical improvement the patient white count has normalized without getting any antibiotic for UTI keeping in mind the patient did have active C. diff colitis and has shown clinical improvement with oral vancomycin to continue for 2 weeks and close outpatient follow-up discussed in d etail with the admitting team working on discharge Time with Patient: Less than 30
--- NOTE | 2023-01-02 15:30 | XR ---
EXAMINATION TYPE: XR chest 1V portable DATE OF EXAM: 01/02/2023 COMPARISON: 12/30/2022 HISTORY: Shortness of breath TECHNIQUE: Single frontal view of the chest is obtained. FINDINGS: Bilateral consolidation and small effusion. There is a postoperative change right shoulder . Arthropathy left shoulder. Metallic device likely superficial overlying the left upper lung field. Heart is enlarged. Severe arthropathy left AC joint. Hypertrophic and degenerative change of the spin e. Findings suggest previous gastric pull-through procedure with the hiatal hernia or diaphragmatic h ernia also noted. IMPRESSION: 1. Cardiomegaly with bilateral infiltrate and small effusion
--- NOTE | 2023-01-02 15:33 | P.DS ---
Providers Date of admission: 12/30/22 09:08 Attending physician: Brayden Griffin MD Consults: 12/29/22 09:32 Consult Physician Routine Consulting Provider: Yao Parikh Consult Reason/Comments: kidney stone Do you want consulting provider notified?: Yes 12/29/22 10:26 Consult Physician Routine Consulting Provider: Deven Yu Consult Reason/Comments: elevated troponin Do you want consulting provider notified?: Yes 12/29/22 22:49 Consult Physician Routine Consulting Provider: Felicity Betancur Consult Reason/Comments: lactic acidosis, hypotension, anuria, worsening kidney function Do you want consulting provider notified?: Already Contacted 12/30/22 09:03 Consult Physician Routine Consulting Provider: Yojana Cherry Consult Reason/Comments: C. Diff Do you want consulting provider notified?: Yes 12/30/22 12:35 Consult Physician Routine Consulting Provider: Brando Valencia Consult Reason/Comments: iliana Do you want consulting provider notified?: Yes Primary care physician: Lexi Blackwood Hospital Course: Final Diagnosis -Fall and near syncope possibly from dehydration and sepsis/septic shock -Acute C. Dif colitis with sepsis present on admission. Patient was also treated for C.Dif during the previous hospital stay. -Acute renal failure secondary to septic shock. -Acute hypoxic respiratory failure likely from a mild acute CHF exacberation -Left-sided renal calculi likely to pass spontaneously, Acute UTI likely complicated due to stone, urine culture showing klebsiella. -Urinary retention currently IDC removed undergoing voiding trial -History of diastolic heart failure with aortic stenosis and mild to moderate aortic regurgitation, EF 50-55%. -Hypomagnesemia/hypokalemia improved. -Valvular atrial fibrillation history patient is in atrial fibrillation with controlled ventricular rate -Recent pericardial window performed at [facility] 2 weeks ago. -Type 2 diabetes mellitus -COPD without any acute exacerbation -Hyperlipidemia -Hypertension -Benign prostatic hypertrophy -History of esophageal cancer which is in remission at this time Do Not Intubate Discharge Disposition Patient is stable for discharge to subacute rehab today. Patient has been resumed on oral lasix 20 mg daily and increased to 40 mg daily for worsening edema. IDC has been removed for voiding trial per urology patient unlikely to pass the stone spontaneously with IDC in place. Patient remains on flomax. Patient will continue oral vancomycin for 10 days of antibiotic therapy additionally oral ceftin for 5 days per urology recommendations to treat the klebsialla UTI. Patient has evidence of oral thrush and to continue nystatin for 7 days. Patient has hoarseness when speaking has history of esophageal cancer recommending to f.u with ENT on discharge for this. Patient recommending to repeat BMP and magnesium in 2 to 3 days and needs close follow up outpatient. Additionally patient to follow up with nephrology, cardiology, urology, infectious disease on discharge. Recommend to see PCP in 2 to 3 days. Hospital Course This is a 77-year-old pleasant male with history of esophageal cancer, diabetes, COPD, hypertension, hyperlipidemia, BPH, heart failure, atrial fibrillation anticoagualted with coumadin, Patient came in from home with nausea vomiting and the left lower quadrant 8/10 severe crampy abdominal pain and found to have a 2 mm renal calculus in the UVJ junction. Patient also found to be in acute renal failure with creatinine 1.3 and baseline around 0.579 a started on IV fluids at 75 mL per hour. Patient was recently hospitalized at [facility] for pericardial effusion and underwent window. Patient had lasix held on admission here. He did have a fall with near syncope and felt to in septic shock and required vasopressor support. He was found to have C.Dif this hospital stay however family reports he was treated with C.Dif at [place] ran out of antibiotics at home and had worsening diarrhea. He was resumed on oral vancomycin and his white count has normalized, it was 25.2 on admission. Patient denied any chest pain, EKG showed ST-T wave changes in the septal leads. Chest x-ray did show bilateral pleural effusions CT of the abdomen showing the renal calculus with mild hydronephrosis left sided possibly chronic, had infiltrate left lung base, bilateral pleural effusions. He had cardiomegaly with small pericardial effusion. There is normal gallbladder. He has improved with treatment of the C.Dif and also urine culture showing klebsiella and patient was evaluated by urology and infectious disease patient recommended to continue oral vanco and ceftin on discharge as above. Urology felt the UTI was complicated from the stone and mild hydronephrosis and recommending removal of costa if possible as the stone will not spontaneously pass while the IDC is in place. Patient is undergoing voiding trial. Patients creatinine peaked at 2.19 and was hydrated lasix was on hold. Nephrology and cardiology were also following the patient did have a supratherapuetic INR as well at 4.4 which is now down to 2.0. Patient had an echocardiogram done showing normal LV size and systolic function, significant calcification of the aortic valve leaflets and restriction moderate aortic stenosis and mild to moderate regurgitation. There is mild mitral and tricuspid regurgitation no significant pulmonary hypertension and no pericardial window. Creatinine is improved and resumed on oral lasix for discharge. Cleared by all consultations. 01/02/2023 Patient is evaluated today sitting up in the intensive care unit he has been a medical surgical. His symptoms have improved he is having one bowel movement about every 24 hours. He did trial questran, however this made him nauseous and recommended not to continue this on discharge and recommending Imodium as needed. As above will continue antibiotics for 10 days with oral vancomycin and also oral Ceftin for 5 days for the UTI. He is denying any chest pain, denying shortness of breath he is denying any vomiting. Tolerating diet. Recommend continuing ensure protein supplementation. White count has normalized at 9.2 today, sodium of 136, BUN 25, creatinine 1.35 today. Blood glucose in the 100s. Recommending to hold actos and use sliding scale insulin. Patient is off vasopressor support and blood pressure is 134/77. Afebrile and on room air. Please see medication reconciliation for a list of current medication. Thank you for allowing us to participate in the care of this patient. The impression and plan of care has been dictated by Mary Chahal, Nurse Practitioner as directed. Dr. Maged MD I have performed a history and physical examination and medical decision making of this patient, discussed the same with the dictator, and agree with the dictators assessment and plan as written, documented as a scribe. Based on total visit time, I have performed more than 50% of this visit. Patient Condition at Discharge: Fair Plan - Discharge Summary Discharge Rx Participant: Yes New Discharge Prescriptions: New Cefuroxime [Ceftin] 250 mg PO BID 5 Days #10 tab Sodium Bicarbonate Tab 650 mg PO BID #60 tab Acetaminophen Tab [Tylenol] 650 mg PO Q6HR PRN tab PRN Reason: Fever And/ Or Pain Furosemide [Lasix] 20 mg PO DAILY PRN #30 tab PRN Reason: edema Nystatin 100,000 Unit/ml Susp [Mycostatin Oral Susp] 500,000 unit PO QID 7 Days #150 ml INSULIN ASPART (NovoLOG) [NovoLOG (formulary)] 0 unit SQ ACHS each Midodrine [ProAmatine] 5 mg PO AC-TID #90 tab Vancomycin 250 mg PO Q6HR 14 Days #56 cap Furosemide [Lasix] 20 mg PO DAILY #30 tab Loperamide [Imodium] 2 mg PO QID PRN #40 capsule PRN Reason: Diarrhea Continue Omeprazole 20 mg PO W/SUPPER Multivitamins, Thera [Multivitamin (formulary)] 1 tab PO DAILY@1200 Cyanocobalamin (Vitamin B-12) [Vitamin B-12] 1,000 mcg PO DAILY Ferrous Sulfate [Iron (65 MG Elemental)] 325 mg PO BID@1700,2100 Ondansetron Odt [Zofran ODT] 4 mg PO Q8HR PRN #6 tab PRN Reason: Nausea Cholecalciferol [Vitamin D3 (25 Mcg = 1000 Iu)] 25 mcg PO DAILY Aspirin 81 mg PO HS Warfarin [Coumadin] 7.5 mg PO SUMOWEFRSA rOPINIRole HCL [Requip] 0.5 mg PO HS Cetirizine HCl [Zyrtec] 10 mg PO DAILY Latanoprost/Pf [Latanoprost 0.005% Eye Drop] 1 drop RIGHT EYE HS Carboxymethylcellulose Sodium [Thera Tears] 1 drop LEFT EYE DAILY Atorvastatin [Lipitor] 40 mg PO W/SUPPER Warfarin [Coumadin] 5 mg PO TUTH Tamsulosin [Flomax] 0.4 mg PO DAILY 7 Days #7 cap Changed carvediloL [Coreg] 3.125 mg PO BID-W/MEALS #0 Losartan [Cozaar] 25 mg PO BID #0 Discontinued Pioglitazone [Actos] 15 mg PO DAILY Discharge Medication List Omeprazole 20 mg PO W/SUPPER 05/25/18 [History] Multivitamins, Thera [Multivitamin (formulary)] 1 tab PO DAILY@1200 09/26/19 [History] Aspirin 81 mg PO HS 10/04/21 [History] Cholecalciferol [Vitamin D3 (25 Mcg = 1000 Iu)] 25 mcg PO DAILY 10/04/21 [History] Cyanocobalamin (Vitamin B-12) [Vitamin B-12] 1,000 mcg PO DAILY 10/04/21 [History] Ferrous Sulfate [Iron (65 MG Elemental)] 325 mg PO BID@1700,2100 10/04/21 [History] Warfarin [Coumadin] 7.5 mg PO SUMOWEFRSA 10/04/21 [History] rOPINIRole HCL [Requip] 0.5 mg PO HS 07/03/22 [History] Atorvastatin [Lipitor] 40 mg PO W/SUPPER 11/25/22 [History] Carboxymethylcellulose Sodium [Thera Tears] 1 drop LEFT EYE DAILY 11/25/22 [History] Cetirizine HCl [Zyrtec] 10 mg PO DAILY 11/25/22 [History] Latanoprost/Pf [Latanoprost 0.005% Eye Drop] 1 drop RIGHT EYE HS 11/25/22 [History] Warfarin [Coumadin] 5 mg PO TUTH 11/25/22 [History] Ondansetron Odt [Zofran ODT] 4 mg PO Q8HR PRN #6 tab 12/27/22 [Rx] Tamsulosin [Flomax] 0.4 mg PO DAILY 7 Days #7 cap 12/27/22 [Rx] Acetaminophen Tab [Tylenol] 650 mg PO Q6HR PRN tab 01/02/23 [Rx] Cefuroxime [Ceftin] 250 mg PO BID 5 Days #10 tab 01/02/23 [Rx] Furosemide [Lasix] 20 mg PO DAILY #30 tab 01/02/23 [Rx] Furosemide [Lasix] 20 mg PO DAILY PRN #30 tab 01/02/23 [Rx] INSULIN ASPART (NovoLOG) [NovoLOG (formulary)] 0 unit SQ ACHS each 01/02/23 [Rx] Loperamide [Imodium] 2 mg PO QID PRN #40 capsule 01/02/23 [Rx] Losartan [Cozaar] 25 mg PO BID #0 01/02/23 [Rx] Midodrine [ProAmatine] 5 mg PO AC-TID #90 tab 01/02/23 [Rx] Nystatin 100,000 Unit/ml Susp [Mycostatin Oral Susp] 500,000 unit PO QID 7 Days #150 ml 01/02/23 [Rx] Sodium Bicarbonate Tab 650 mg PO BID #60 tab 01/02/23 [Rx] Vancomycin 250 mg PO Q6HR 14 Days #56 cap 01/02/23 [Rx] carvediloL [Coreg] 3.125 mg PO BID-W/MEALS #0 01/02/23 [Rx] Follow up Appointment(s)/Referral(s): Lexi Blackwood MD [Primary Care Provider] - 1-2 days Brando Valencia DO [STAFF PHYSICIAN] - 1 Week Yojana Cherry MD [STAFF PHYSICIAN] - 1 Week Andre Canales DO [Doctor of Osteopathic Medicine] - 1 Week Ambulatory/Diagnostic Orders: Basic Metabolic Panel [LAB.AMB] Time Frame: 3 Days, Location: None Selected Complete Blood Count w/diff [LAB.AMB] Time Frame: 3 Days, Location: None Selected Magnesium [LAB.AMB] Location: None Selected Activity/Diet/Wound Care/Special Instructions: Patient is discharged to subacute rehab Oral nystain QID for 7 days for the oral thrush Recommending oral vancomycin for 14 weeks for C.Dif, Ceftin for 5 days for the UTI. Indwelling catheter has been resumed if patient unable to void recommend to reinsert and follow up with urology on discharge. Patient continues on flomax. Patient to repeat labs BMP and magnesium in 2 to 3 days Recommend to see ENT on follow up as well for concerns of voice changing Patient to resume lasix 20 mg daily on discharge and recommend to increased to 40 mg daily if worsening lower extremity edema. Discharge Disposition: TRANSFER TO SNF/ECF
[2023-01-02 16:56] LABS: Glucose,Whole Blood 113 mg/dL (70-110)
[2023-01-02 17:11] VITALS: BP 140/81; PULSE 79; RESP 22; TEMP 97.7
[2023-01-02] MEDS: ATORVASTATIN 40 MG TAB PO SCH (17:40)
[2023-01-02] MEDS ORDERED: WARFARIN 3 MG TAB PO ONE (18:00)
== END 2023-01-02 18:30 | DRG 871 ==
LOC: EC 05:08 → 3SCARD 09:33 → 2SICU 22:57 → OBSVTOIN 12-30 09:08 → 2SICU 12-31 11:35
PROVIDERS: ADMIT Internal Medicine; ATTEND Internal Medicine
PROC: 3E033XZ Introduction of Vasopressor into Peripheral Vein, Percutaneous Approach (ICD-10-PCS; principal; 2022-12-29)
DX: A41.4 Sepsis due to anaerobes (principal); I21.A1 Myocardial infarction type 2; J96.01 Acute respiratory failure with hypoxia; N17.0 Acute kidney failure with tubular necrosis; R65.21 Severe sepsis with septic shock; A04.72 Enterocolitis due to Clostridium difficile, not specified as recurrent; D68.9 Coagulation defect, unspecified; I48.21 Permanent atrial fibrillation; I31.39 Other pericardial effusion (noninflammatory); I50.32 Chronic diastolic (congestive) heart failure; B37.0 Candidal stomatitis; N13.6 Pyonephrosis; E86.1 Hypovolemia; D69.6 Thrombocytopenia, unspecified; I11.0 Hypertensive heart disease with heart failure; E11.9 Type 2 diabetes mellitus without complications; J44.9 Chronic obstructive pulmonary disease, unspecified; Z20.822 Contact with and (suspected) exposure to COVID-19; Z28.310 Unvaccinated for COVID-19; B96.1 Klebsiella pneumoniae [K. pneumoniae] as the cause of diseases classified elsewhere; I35.2 Nonrheumatic aortic (valve) stenosis with insufficiency; R31.0 Gross hematuria; N40.0 Benign prostatic hyperplasia without lower urinary tract symptoms; E78.5 Hyperlipidemia, unspecified; E83.42 Hypomagnesemia; E87.6 Hypokalemia; K21.9 Gastro-esophageal reflux disease without esophagitis; R82.991 Hypocitraturia; H91.90 Unspecified hearing loss, unspecified ear; Z79.82 Long term (current) use of aspirin; Z79.84 Long term (current) use of oral hypoglycemic drugs; Z79.01 Long term (current) use of anticoagulants; Z79.899 Other long term (current) drug therapy; Z92.3 Personal history of irradiation; Z92.21 Personal history of antineoplastic chemotherapy; Z87.442 Personal history of urinary calculi; Z85.46 Personal history of malignant neoplasm of prostate; Z85.819 Personal history of malignant neoplasm of unspecified site of lip, oral cavity, and pharynx; Z85.01 Personal history of malignant neoplasm of esophagus; W18.30XA Fall on same level, unspecified, initial encounter; Y92.009 Unspecified place in unspecified non-institutional (private) residence as the place of occurrence of the external cause; Z91.030 Bee allergy status; Z91.040 Latex allergy status
CPT/HCPCS: 36415; 70450; 71045; 72125; 74177; 80048; 80053; 81001; 83605; 83690; 83735; 83880; 84132; 84145; 84484; 85025; 85027; 85610; 85730; 87040; 87077; 87086; 87186; 87324; 87502; 93005; 93306; 96361; 96374; 96375; 96376; 99285

== ENCOUNTER → 2023-01-15 | Outpatient (CLI) | payer MEDICARE, OTHER ==
[2023-01-15 10:32] LABS: African American GFR (CKD) >90 (>60 ml/min/1.73 sqM); Blood Urea Nitrogen 16 mg/dL (9-20); Non-African American GFR(CKD) 81 (>60 ml/min/1.73 sqM)
--- NOTE | 2023-01-15 13:01 | CT ---
EXAMINATION TYPE: CT chest w con DATE OF EXAM: 01/15/2023 COMPARISON: 12/27/2022 and 07/23/2022 HISTORY: 77-year-old male C15.5, follow up esophageal CA TECHNIQUE: Contiguous axial scanning of the chest after the administration of 100 mL of Isovue 300. Coronal/sagittal reconstructions performed. CT DLP: 327.5mGycm. Automatic exposure control utilized for a dose reduction. FINDINGS: The heart is borderline enlarged with similar small basilar pericardial effusion measuring 1 cm thick . Scattered mild coronary artery calcifications are present. Moderate aortic valvular calcifications. Ectatic ascending aorta 3.8 cm. Conventional arch vessel branching anatomy. Underlying nodularity within the right lobe of the thyroid gland may measure up to 1.5 cm. Appears re latively unchanged from 07/23/2022. 3 further evaluated with thyroid ultrasound. Large-caliber the main right and left pulmonary arteries up to 3.2 cm suggesting underlying pulmonary hypertension. No thoracic lymphadenopathy by CT size criteria. Postsurgical change of esophagectomy with gastric pull-through procedure. The overall appearance of t he gastric pull-through is unchanged. Similar density subpleural nodularity along the right lateral a spect of the gastric pull-through at the mid chest level. No new suspicious soft tissue nodularity is seen. Strandy scarring and fibrosis of the lung bases. Calcified granuloma at the right base. Mild to moder ate emphysematous change anomaly in the upper lungs. No new consolidation or pleural effusion. Redemonstrated herniated mid transverse colon. While this finding was present previously, there is no w distention of this herniated colon from moderate stool. Unchanged slight thickening of the left adrenal gland. Slight asymmetric fullness left renal collecti ng system. Punctate 3 mm nonobstructive left renal calculus. Bones: [facility] throughout the mid and lower thoracic spine. IMPRESSION: 1. Status post esophagectomy with gastric pull-through procedure. Overall appearance to the gastric p ull-through is unchanged. No evidence for recurrence or metastatic disease. 2. COPD with moderate upper lung emphysema. 3. The mid transverse colon continues to herniate into the lower chest. Currently distended by modera te stool. 4. Unchanged nodular thickening of the left adrenal gland. There is some residual fullness of the lef t renal collecting system though improved from 12/27/2022. Nonobstructive 3 mm left renal calculus.
== END | disposition home or self-care (01) ==
LOC: RADCTMAIN 09:52
PROVIDERS: ATTEND Radiology Radiation Oncology
DX: C15.5 Malignant neoplasm of lower third of esophagus (principal); J43.9 Emphysema, unspecified; N20.0 Calculus of kidney; D35.02 Benign neoplasm of left adrenal gland; K63.89 Other specified diseases of intestine
CPT/HCPCS: 82565; 84520; 71260; 36415; Q9967

== ENCOUNTER 2023-01-16 11:45 | Emergency (ER) | payer MEDICARE, OTHER ==
[2023-01-16] MEDS ORDERED: SODIUM CHLORIDE 0.9% 1,000 ML IV ONE (12:52)
[2023-01-16] MEDS ORDERED: ONDANSETRON 4 MG/2 ML VIAL IVP STA ×2 (12:52→16:30)
--- NOTE | 2023-01-16 13:06 | ED ---
General Adult HPI - General Chief complaint: Nausea/Vomiting/Diarrhea Stated complaint: Nausea, back pain Time Seen by Provider: 01/16/23 12:24 Source: patient, RN notes reviewed Mode of arrival: ambulatory Limitations: no limitations - History of Present Illness Initial comments: 77-year-old male with a past medical history significant for es ophageal cancer presents to the emergency department with a chief complaint of left flank pain. Patient reports that he woke up normal S1 and protocol return if his doctor's appointments with his left flank pain started. He describes the pain as sharp and does not radiate. He is complaining of accompanying symptoms of nausea and vomiting. She denies any fevers, chest pain, shortness of breath, hematemesis, hemoptysis triage. Patient reports having a personal history of kidney stones. - Related Data Home Medications Medication Instructions Recorded Confirmed Omeprazole 20 mg PO HS 05/25/18 01/16/23 Multivitamins, Thera [Multivitamin 1 tab PO DAILY 09/26/19 01/16/23 (formulary)] Cholecalciferol [Vitamin D3 (25 25 mcg PO DAILY 10/04/21 01/16/23 Mcg = 1000 Iu)] Cyanocobalamin (Vitamin B-12) 1,000 mcg PO DAILY 10/04/21 01/16/23 [Vitamin B-12] Ferrous Sulfate [Iron (65 MG 325 mg PO BID@1700,2100 10/04/21 01/16/23 Elemental)] rOPINIRole HCL [Requip] 0.5 mg PO HS 07/03/22 01/16/23 Atorvastatin [Lipitor] 40 mg PO HS 11/25/22 01/16/23 Carboxymethylcellulose Sodium 1 drop LEFT EYE HS 11/25/22 01/16/23 [Thera Tears] Cetirizine HCl [Zyrtec] 10 mg PO DAILY 11/25/22 01/16/23 Latanoprost/Pf [Latanoprost 0.005% 1 drop RIGHT EYE HS 11/25/22 01/16/23 Eye Drop] Acetaminophen [Tylenol 8 Hour] 650 mg PO Q8H PRN 01/16/23 01/16/23 Aspirin EC [Ecotrin Low Dose] 81 mg PO HS 01/16/23 01/16/23 Furosemide [Lasix] 20 mg PO BID@0700,1600 01/16/23 01/16/23 Losartan [Cozaar] 50 mg PO HS 01/16/23 01/16/23 Midodrine [ProAmatine] 5 mg PO TID@0700,1300,1900 01/16/23 01/16/23 Ondansetron [Zofran] 4 mg PO Q8HR PRN 01/16/23 01/16/23 Potassium Chloride [Klor-Con M20] 20 meq PO DAILY@0700 01/16/23 01/16/23 Warfarin [Coumadin] 5 mg PO TUTH@1400 01/16/23 01/16/23 Warfarin [Coumadin] 7.5 mg PO SUMOWEFRSA@1400 01/16/23 01/16/23 carvediloL [Coreg] 3.125 mg PO BID 01/16/23 01/16/23 Previous Rx's Medication Instructions Recorded Tamsulosin [Flomax] 0.4 mg PO DAILY 7 Days #7 cap 12/27/22 Loperamide [Imodium] 2 mg PO QID PRN #40 capsule 01/02/23 Sodium Bicarbonate Tab 650 mg PO BID #60 tab 01/02/23 Cephalexin [Keflex] 500 mg PO Q6HR #40 cap 01/16/23 Allergies Allergy/AdvReac Type Severity Reaction Status Date / Time bee venom protein (honey bee) Allergy Severe Anaphylaxis Verified 01/16/23 16:50 latex Allergy Unknown Rash/Hives Verified 01/16/23 16:50 adhesive tape Allergy Unknown-Per Verified 01/16/23 16:50 Dr Dickens's office Review of Systems ROS Statement: Those systems with pertinent positive or pertinent negative responses have been documented in the HPI. ROS Other: All systems not noted in ROS Statement are negative. 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 "ENLARGED HEART VALVES" PER PATIENT. HX OF PROSTATE CANCER WITH SURGERY, HX OF THROAT CANCER WITH SURGERY (2016), LOW IRON. BILATERAL HEARING AIDS. History of Any Multi-Drug Resistant Organisms: None Reported Past Surgical History: Orthopedic Surgery, Prostate Surgery Additional Past Surgical History / Comment(s): RIGHT SHOULDER X2, EGD'S, COLONOSCOPIES, MICAH CATARACTS, PATIENT STATES ESOPHAGUS REMOVED AND STOMACH USED. PROSTATE SX FOR CANCER Past Anesthesia/Blood Transfusion Reactions: No Reported Reaction Past Psychological History: No Psychological Hx Reported Smoking Status: Never smoker Past Alcohol Use History: None Reported Past Drug Use History: None Reported - Past Family History Sister(s) Family Medical History: Cancer Additional Family Medical History / Comment(s): AT 13 YRS OF AGE. General Exam - General Exam Comments Initial Comments: General: Alert, in no acute distress Head: atraumatic normocephalic. Eyes PERRL, EOMI intact, mucous membranes moist Respiratory: Lungs clear to auscultation bilaterally Cardiovascular: Rate regular rate and rhythm Abdominal: Soft without guarding or rebound Extremities: Normal inspection with full range of motion and normal capillary refill Neuroogic: alert and oriented 3, CN II-XII intact, able to ambulate with steady gait Skin: warm dry and intact with normal color Limitations: no limitations Course Vital Signs 01/16/23 01/16/23 01/16/23 11:47 15:10 17:26 Temperature 98 F 97.9 F Pulse Rate 89 90 Respiratory 22 16 Rate Blood Pressure 134/91 135/101 116/81 O2 Sat by Pulse 97 98 97 Oximetry 01/16/23 18:44 Temperature Pulse Rate 102 H Respiratory 20 Rate Blood Pressure 136/96 O2 Sat by Pulse Oximetry - Reevaluation(s) Reevaluation #1: 01/16/23 17:28 Patient reevaluated. Patient still complaining of pain. He reports that his symptoms of nausea and vomiting Resolved. Medical Decision Making - Medical Decision Making Was pt. sent in by a medical professional or institution (, PA, ANALYTICS CONSULTANT, urgent care, hospital, or jail...) When possible be specific @ -[No] Did you speak to anyone other than the patient for history (EMS, parent, family, police, friend...)? What history was obtained from this source @ -[No] Did you review nursing and triage notes (agree or disagree)? Why? @ -[I reviewed and agree with nursing and triage notes] Were old charts reviewed (outside hosp., previous admission, EMS record, old EKG, old radiological studies, urgent care reports/EKG's, jail records)? Report findings @ -[No old charts were reviewed] Differential Diagnosis (chest pain, altered mental status, abdominal pain women, abdominal pain men, vaginal bleeding, weakness, fever, dyspnea, syncope, headache, dizziness, GI bleed, back pain, seizure, CVA, palpatations, mental health, musculoskeletal)? @ -[not applicable] EKG interpreted by me (3pts min.). @ -[As above] X-rays interpreted by me (1pt min.). @ -[None done] CT interpreted by me (1pt min.). @ -CT abdomen negative for any evidence of cholelithiasis. U/S interpreted by me (1pt. min.). @ -[None done] What testing was considered but not performed or refused? (CT, X-rays, U/S, labs)? Why? @ -[None] What meds were considered but not given or refused? Why? @ -[None] Did you discuss the management of the patient with other professionals (professionals i.e. , PA, ANALYTICS CONSULTANT, lab, RT, psych nurse, web content & social media manager, busgirl, teacher, weapons officer naval activity, correctional casework specialist)? Give summary @ -[No] Was smoking cessation discussed for >3mins.? @ -[No] Was critical care preformed (if so, how long)? @ -[No] Were there social determinants of health that impacted care today? How? (Homelessness, low income, unemployed, alcoholism, drug addiction, transportation, low edu. Level, literacy, decrease access to med. care, mcc, rehab)? @ -[No] Was there de-escalation of care discussed even if they declined (Discuss DNR or withdrawal of care, Hospice)? DNR status @ -[No] What co-morbidities impacted this encounter? (DM, HTN, Smoking, COPD, CAD, Can cer, CVA, ARF, Chemo, Hep., AIDS, mental health diagnosis, sleep apnea, morbid obesity)? @ -[None] Was patient admitted / discharged? Hospital course, mention meds given and route, prescriptions, significant lab abnormalities, going to OR and other pertinent info. @ -Discharged. This is a 77-year-old male who presents the emergency department with nausea and vomiting. Patient had a thorough history and physical exam performed in the ED. Physical exam essentially unremarkable. Heart rate regular rate and rhythm, lungs are to auscultation bilaterally, abdomen soft non-tender. Patient was given Toradol, Pepcid, Zofran, 1 L IV fluids with mild symptomatic relief. He was given morphine and reported significant pain relief. Patient requesting to be discharged home at that time.\\\\. Patient had lab work and imaging performed which were essentially unremarkable. Return precautions were discussed at length. Patient discharged in stable condition. Case discussed with Dr. Meyer [facility] who agrees with plan of care Undiagnosed new problem with uncertain prognosis? @ -[No] Drug Therapy requiring intensive monitoring for toxicity (Heparin, Nitro, Insulin, Cardizem)? @ -[No] Were any procedures done? @ -[No] Diagnosis/symptom? @ -nausea and vomiting Acute, or Chronic, or Acute on Chronic? @ -Acute Uncomplicated (without systemic symptoms) or Complicated (systemic symptoms)? @ -Uncomplicated Side effects of treatment? @ -[No] Exacerbation, Progression, or Severe Exacerbation? @ -[No] Poses a threat to life or bodily function? How? (Chest pain, [place], [place], pneumonia, PE, COPD, DKA, ARF, appy, cholecystitis, CVA, Diverticulitis, Homicidal, Suicidal, threat to staff... and all critical care pts) @ -Low likelihood - Lab Data Result diagrams: 01/16/23 13:47 01/16/23 15:09 Lab Results 01/16/23 01/16/23 01/16/23 Range/Units 13:47 15:09 15:09 WBC 6.0 (3.8-10.6) k/uL RBC 3.75 L (4.30-5.90) m/uL Hgb 12.3 L (13.0-17.5) gm/dL Hct 38.4 L (39.0-53.0) % MCV 102.4 H (80.0-100.0) fL MCH 32.9 (25.0-35.0) pg MCHC 32.1 (31.0-37.0) g/dL RDW 14.2 (11.5-15.5) % Plt Count 260 D (150-450) k/uL MPV 7.8 Neutrophils % 77 % Lymphocytes % 8 % Monocytes % 11 % Eosinophils % 2 % Basophils % 1 % Neutrophils # 4.7 (1.3-7.7) k/uL Lymphocytes # 0.5 L (1.0-4.8) k/uL Monocytes # 0.6 (0-1.0) k/uL Eosinophils # 0.1 (0-0.7) k/uL Basophils # 0.0 (0-0.2) k/uL Hypochromasia Slight Macrocytosis Slight Sodium (137-145) mmol/L Potassium (3.5-5.1) mmol/L Chloride (98-107) mmol/L Carbon Dioxide (22-30) mmol/L Anion Gap mmol/L BUN (9-20) mg/dL Creatinine (0.66-1.25) mg/dL Est GFR (CKD-EPI)AfAm (>60 ml/min/1.73 sqM) Est GFR (CKD-EPI)NonAf (>60 ml/min/1.73 sqM) Glucose (74-99) mg/dL Calcium (8.4-10.2) mg/dL Total Bilirubin (0.2-1.3) mg/dL AST (17-59) U/L ALT (4-49) U/L Alkaline Phosphatase (38-126) U/L Total Protein (6.3-8.2) g/dL Albumin (3.5-5.0) g/dL Amylase 46 (30-110) U/L Lipase 133 (23-300) U/L Urine Color Urine Appearance (Clear) Urine pH (5.0-8.0) Ur Specific [place] (1.001-1.035) Urine Protein (Negative) Urine Glucose (UA) (Negative) Urine Ketones (Negative) Urine Blood (Negative) Urine Nitrite (Negative) Urine Bilirubin (Negative) Urine Urobilinogen (<2.0) mg/dL Ur Leukocyte Esterase (Negative) Urine RBC (0-5) /hpf Urine WBC (0-5) /hpf Urine WBC Clumps (None) /hpf Ur Squamous Epith Cells (0-4) /hpf Urine Bacteria (None) /hpf Hyaline Casts (0-2) /lpf Urine Mucus (None) /hpf Influenza Type A (PCR) Not Detected (Not Detectd) Influenza Type B (PCR) Not Detected (Not Detectd) RSV (PCR) Not Detected (Not Detectd) SARS-CoV-2 (PCR) Not Detected (Not Detectd) 01/16/23 01/16/23 Range/Units 15:09 15:26 WBC (3.8-10.6) k/uL RBC (4.30-5.90) m/uL Hgb (13.0-17.5) gm/dL Hct (39.0-53.0) % MCV (80.0-100.0) fL MCH (25.0-35.0) pg MCHC (31.0-37.0) g/dL RDW (11.5-15.5) % Plt Count (150-450) k/uL MPV Neutrophils % % Lymphocytes % % Monocytes % % Eosinophils % % Basophils % % Neutrophils # (1.3-7.7) k/uL Lymphocytes # (1.0-4.8) k/uL Monocytes # (0-1.0) k/uL Eosinophils # (0-0.7) k/uL Basophils # (0-0.2) k/uL Hypochromasia Macrocytosis Sodium 139 (137-145) mmol/L Potassium 4.5 (3.5-5.1) mmol/L Chloride 106 (98-107) mmol/L Carbon Dioxide 24 (22-30) mmol/L Anion Gap 9 mmol/L BUN 16 (9-20) mg/dL Creatinine 1.01 (0.66-1.25) mg/dL Est GFR (CKD-EPI)AfAm 83 (>60 ml/min/1.73 sqM) Est GFR (CKD-EPI)NonAf 72 (>60 ml/min/1.73 sqM) Glucose 97 (74-99) mg/dL Calcium 8.3 L (8.4-10.2) mg/dL Total Bilirubin 0.7 (0.2-1.3) mg/dL AST 43 (17-59) U/L ALT 52 H (4-49) U/L Alkaline Phosphatase 133 H (38-126) U/L Total Protein 6.4 (6.3-8.2) g/dL Albumin 3.1 L (3.5-5.0) g/dL Amylase (30-110) U/L Lipase (23-300) U/L Urine Color Yellow Urine Appearance Turbid (Clear) Urine pH 6.0 (5.0-8.0) Ur Specific [place] 1.017 (1.001-1.035) Urine Protein 1+ H (Negative) Urine Glucose (UA) Negative (Negative) Urine Ketones Negative (Negative) Urine Blood Moderate H (Negative) Urine Nitrite Negative (Negative) Urine Bilirubin Negative (Negative) Urine Urobilinogen <2.0 (<2.0) mg/dL Ur Leukocyte Esterase Large H (Negative) Urine RBC 27 H (0-5) /hpf Urine WBC >182 H (0-5) /hpf Urine WBC Clumps Many H (None) /hpf Ur Squamous Epith Cells <1 (0-4) /hpf Urine Bacteria Many H (None) /hpf Hyaline Casts 3 H (0-2) /lpf Urine Mucus Few H (None) /hpf Influenza Type A (PCR) (Not Detectd) Influenza Type B (PCR) (Not Detectd) RSV (PCR) (Not Detectd) SARS-CoV-2 (PCR) (Not Detectd) Disposition Clinical Impression: Flank pain, Nausea and vomiting Disposition: HOME SELF-CARE Condition: Stable Instructions (If sedation given, give patient instructions): Acute Nausea and Vomiting (ED) Additional Instructions: Please return to the nearest emergency department if symptoms worsen or persist Prescriptions: Cephalexin [Keflex] 500 mg PO Q6HR #40 cap Is patient prescribed a controlled substance at d/c from ED?: No Referrals: Lexi Blackwood MD [Primary Care Provider] - 1-2 days Time of Disposition: 18:19
--- NOTE | 2023-01-16 13:46 | CT ---
EXAMINATION TYPE: CT abdomen pelvis wo con DATE OF EXAM: 01/16/2023 COMPARISON: 12/29/2022 HISTORY: flank pain, vomiting CT DLP: 584.2 mGycm Examination of the solid and hollow viscera is limited given the lack of contrast. FINDINGS: LUNG BASES: No evidence for nodule. Linear basilar parenchymal scar or atelectasis. Postoperative alessio nges of gastric pull-through procedure partially imaged. LIVER/GB: Small gallstones redemonstrated. No space-occupying hepatic lesion. PANCREAS: No pancreatic mass identified. No inflammatory process seen. SPLEEN: No evidence for splenomegaly. No intrasplenic lesions seen. ADRENALS: No adrenal nodules identified. No evidence for thickening. KIDNEYS: No evidence for renal mass. 3 mm calculus left kidney upper pole. No hydronephrosis. Contras t is seen within the renal collecting systems and urinary bladder from recent CT chest. Left UVJ calc ulus seen previously appears to have passed. BOWEL: Appendix has a normal appearance. No evidence of bowel obstruction. No inflammatory process. M oderate fecal stasis noted. Moderate fecal stasis. Lymph nodes: No evidence for adenopathy greater than 1 cm. Abdominal aorta: Atheromatous changes seen. No evidence for aneurysm. Genital organs: No significant abnormality. Other: No significant abnormality. IMPRESSION: 1.Left UVJ calculus seen previously appears to have passed. Nonobstructing calculus upper pole left k idney. 2. No acute process seen.
[2023-01-16] MEDS ORDERED: KETOROLAC 15 MG/ML 1 ML VIAL IVP STA (14:05)
[2023-01-16 14:29] LABS: Basophils % (A) 1 %; Eosinophils # (A) 0.1 k/uL (0-0.7); Eosinophils % (A) 2 %; HCT 38.4 % (39.0-53.0); HGB 12.3 gm/dL (13.0-17.5); Hypochromasia Slight; Lymphocytes # (A) 0.5 k/uL (1.0-4.8); Lymphocytes % (A) 8 %; MCH 32.9 pg (25.0-35.0); MCHC 32.1 g/dL (31.0-37.0); MCV 102.4 fL (80.0-100.0); Macrocytosis Slight; Mean Platelet Volume 7.8; Monocytes # (A) 0.6 k/uL (0-1.0); Monocytes % (A) 11 %; Neutrophils # (A) 4.7 k/uL (1.3-7.7); Neutrophils % (A) 77 %; RBC 3.75 m/uL (4.30-5.90); RDW 14.2 % (11.5-15.5)
[2023-01-16] MEDS ORDERED: METOCLOPRAMIDE 5 MG/ML 2 ML VIAL IVP STA (14:40)
[2023-01-16 14:44] LABS: Platelet Count 260 k/uL (150-450)
[2023-01-16 16:09] LABS: Appearance,Urine Turbid (Clear); Bacteria,Urine Many /hpf; Bilirubin,Urine Negative (Negative); Blood,Urine Moderate (Negative); Color,Urine Yellow; Glucose,Urine (UA) Negative (Negative); Hyaline Casts,Urine 3 /lpf (0-2); Ketones,Urine Negative (Negative); Leukocyte Esterase,Urine Large (Negative); Mucus,Urine Few /hpf; Nitrite,Urine Negative (Negative); Protein,Urine 1+ (Negative); RBC,Urine 27 /hpf (0-5); Specific Gravity,Urine 1.017 (1.001-1.035); Squamous Epithelial Cell,Urine <1 /hpf (0-4); Urobilinogen,Urine <2.0 mg/dL (<2.0); WBC,Urine >182 /hpf (0-5)
[2023-01-16 16:13] LABS: Amylase 46 U/L (30-110); Lipase 133 U/L (23-300)
[2023-01-16 17:27] VITALS: TEMP 97.9
[2023-01-16] MEDS ORDERED: MORPHINE SULFATE 2 MG/ML SYRINGE IM STA (17:27)
[2023-01-16 17:34] LABS: Albumin 3.1 g/dL (3.5-5.0); Calcium 8.3 mg/dL (8.4-10.2); Potassium 4.5 mmol/L (3.5-5.1); Total Bilirubin 0.7 mg/dL (0.2-1.3); Total Protein 6.4 g/dL (6.3-8.2)
[2023-01-16] MEDS ORDERED: ONDANSETRON 4 MG ODT STARTER PACK 2 TAB BTL PO STA (18:20)
[2023-01-16 18:46] VITALS: BP 136/96; PULSE 102; RESP 20
== END 2023-01-16 18:49 | disposition home or self-care (01) ==
LOC: EC 11:45
DX: R11.2 Nausea with vomiting, unspecified (principal); R10.9 Unspecified abdominal pain; I10 Essential (primary) hypertension; E11.9 Type 2 diabetes mellitus without complications; J44.9 Chronic obstructive pulmonary disease, unspecified; E78.5 Hyperlipidemia, unspecified; K21.9 Gastro-esophageal reflux disease without esophagitis; Z79.82 Long term (current) use of aspirin; Z79.899 Other long term (current) drug therapy; Z91.030 Bee allergy status; Z91.040 Latex allergy status; Z20.822 Contact with and (suspected) exposure to COVID-19
CPT/HCPCS: 36415; 80053; 82150; 83690; 85025; 81001; 87636; 74176; 99284; 96374; 96375 ×2; 96372; 96361 ×2; J2765; J2405; J2270; J1885

== ENCOUNTER 2023-01-27 13:04 | Emergency (ER) | payer MEDICARE, OTHER ==
[2023-01-27 14:05] VITALS: RESP 18
--- NOTE | 2023-01-27 14:06 | ED ---
General Adult HPI - General Source: patient, RN notes reviewed Mode of arrival: ambulatory Limitations: no limitations <Kayley Russell - Last Filed: 01/27/23 14:05> - General Source: patient, family, RN notes reviewed Limitations: no limitations <Danny Lyle - Last Filed: 01/27/23 16:11> - General Stated complaint: Abnormal Labs Time Seen by Provider: 01/27/23 14:05 - History of Present Illness Initial comments: 77 male presents to the emergency department with a chief complaint of abnormal labs. Patient reports that his INR is 18. Patient reports he takes warfarin (Kayley Russell) Patient is a pleasant 77-year-old male presenting to the emergency department with concern with INR level being too high. Patient chronically is on Coumadin. Patient takes Coumadin secondary to history of atrial fibrillation. Patient states otherwise he feels fine and has no complaints. No recent illness. Patient denies any bleeding. (Danny Lyle) - Related Data Home Medications Medication Instructions Recorded Confirmed Omeprazole 20 mg PO HS 05/25/18 01/16/23 Multivitamins, Thera [Multivitamin 1 tab PO DAILY 09/26/19 01/16/23 (formulary)] Cholecalciferol [Vitamin D3 (25 25 mcg PO DAILY 10/04/21 01/16/23 Mcg = 1000 Iu)] Cyanocobalamin (Vitamin B-12) 1,000 mcg PO DAILY 10/04/21 01/16/23 [Vitamin B-12] Ferrous Sulfate [Iron (65 MG 325 mg PO BID@1700,2100 10/04/21 01/16/23 Elemental)] rOPINIRole HCL [Requip] 0.5 mg PO HS 07/03/22 01/16/23 Atorvastatin [Lipitor] 40 mg PO HS 11/25/22 01/16/23 Carboxymethylcellulose Sodium 1 drop LEFT EYE HS 11/25/22 01/16/23 [Thera Tears] Cetirizine HCl [Zyrtec] 10 mg PO DAILY 11/25/22 01/16/23 Latanoprost/Pf [Latanoprost 0.005% 1 drop RIGHT EYE HS 11/25/22 01/16/23 Eye Drop] Acetaminophen [Tylenol 8 Hour] 650 mg PO Q8H PRN 01/16/23 01/16/23 Aspirin EC [Ecotrin Low Dose] 81 mg PO HS 01/16/23 01/16/23 Furosemide [Lasix] 20 mg PO BID@0700,1600 01/16/23 01/16/23 Losartan [Cozaar] 50 mg PO HS 01/16/23 01/16/23 Midodrine [ProAmatine] 5 mg PO TID@0700,1300,1900 01/16/23 01/16/23 Ondansetron [Zofran] 4 mg PO Q8HR PRN 01/16/23 01/16/23 Potassium Chloride [Klor-Con M20] 20 meq PO DAILY@0700 01/16/23 01/16/23 Warfarin [Coumadin] 5 mg PO TUTH@1400 01/16/23 01/16/23 Warfarin [Coumadin] 7.5 mg PO SUMOWEFRSA@1400 01/16/23 01/16/23 carvediloL [Coreg] 3.125 mg PO BID 01/16/23 01/16/23 Previous Rx's Medication Instructions Recorded Tamsulosin [Flomax] 0.4 mg PO DAILY 7 Days #7 cap 12/27/22 Loperamide [Imodium] 2 mg PO QID PRN #40 capsule 01/02/23 Sodium Bicarbonate Tab 650 mg PO BID #60 tab 01/02/23 Cephalexin [Keflex] 500 mg PO Q6HR #40 cap 01/16/23 Allergies Allergy/AdvReac Type Severity Reaction Status Date / Time bee venom protein (honey bee) Allergy Severe Anaphylaxis Verified 01/27/23 14:04 latex Allergy Unknown Rash/Hives Verified 01/27/23 14:04 adhesive tape Allergy Unknown-Per Verified 01/27/23 14:04 Dr Dickens's office Review of Systems ROS Other: All systems not noted in ROS Statement are negative. <Kayley Russell - Last Filed: 01/27/23 14:05> ROS Other: All systems not noted in ROS Statement are negative. Constitutional: Denies: fever Eyes: Denies: eye pain ENT: Denies: throat pain, epistaxis Respiratory: Denies: cough, dyspnea Cardiovascular: Denies: chest pain, palpitations Endocrine: Denies: fatigue Gastrointestinal: Denies: hematemesis, melena, hematochezia Genitourinary: Denies: urgency <Danny Lyle - Last Filed: 01/27/23 16:11> ROS Statement: Those systems with pertinent positive or pertinent negative responses have been documented in the HPI. Past Medical History Past Medical History: Cancer, COPD, Diabetes Mellitus, GERD/Reflux, Hearing Disorder / Deafness, Hyperlipidemia, Hypertension, Prostate Disorder Additional Past Medical History / Comment(s): COPD WITH SOB (NO RX)-( [employer] FOR 45 YEARS). "ENLARGED HEART VALVES" PER PATIENT. HX OF PROSTATE CANCER WITH SURGERY, HX OF THROAT CANCER WITH SURGERY (2016), LOW IRON. BILATERAL HEARING AIDS. History of Any Multi-Drug Resistant Organisms: None Reported Past Surgical History: Orthopedic Surgery, Prostate Surgery Additional Past Surgical History / Comment(s): RIGHT SHOULDER X2, EGD'S, COL ONOSCOPIES, MICAH CATARACTS, PATIENT STATES ESOPHAGUS REMOVED AND STOMACH USED. PROSTATE SX FOR CANCER Past Anesthesia/Blood Transfusion Reactions: No Reported Reaction Past Psychological History: No Psychological Hx Reported Smoking Status: Never smoker Past Alcohol Use History: None Reported Past Drug Use History: None Reported - Past Family History Sister(s) Family Medical History: Cancer Additional Family Medical History / Comment(s): AT 13 YRS OF AGE. <Kayley Russell - Last Filed: 01/27/23 14:05> General Exam Limitations: no limitations <Kayley Russell - Last Filed: 01/27/23 14:05> Limitations: no limitations General appearance: alert, in no apparent distress Head exam: Present: normocephalic Eye exam: Present: normal appearance ENT exam: Present: normal oropharynx Neck exam: Present: normal inspection Respiratory exam: Present: normal lung sounds bilaterally Cardiovascular Exam: Present: regular rate, normal rhythm GI/Abdominal exam: Present: soft. Absent: tenderness Extremities exam: Present: normal inspection Neurological exam: Present: alert Psychiatric exam: Present: normal affect, normal mood Skin exam: Present: normal color <Danny Lyle - Last Filed: 01/27/23 16:11> - General Exam Comments Initial Comments: Visual Physical Exam Vital signs reviewed General: Well-appearing, nontoxic, no acute distress. Head: Normocephalic, atraumatic Eyes: PERRLA, EOMI ENT: Airway patent Chest: Nonlabored breathing Skin: No visual rash, normal skin tone Neuro: Alert and oriented 3 Musculoskeletal: No gross abnormalities (Kayley Russell) Course Vital Signs 01/27/23 14:02 Temperature 97.5 F L Pulse Rate 82 Respiratory 18 Rate Blood Pressure 114/80 O2 Sat by Pulse 98 Oximetry Medical Decision Making - Lab Data Result diagrams: 01/27/23 14:34 01/27/23 14:34 <Danny Lyle - Last Filed: 01/27/23 16:11> - Medical Decision Making Was pt. sent in by a medical professional or institution ([facility] Hudson, [employer], urgent care, hospital, or shelter...) When possible be specific @ -Patient was sent in by his primary care physician office secondary to elevated INR Did you speak to anyone other than the patient for history (EMS, parent, family, police, friend...)? What history was obtained from this source @ -Family is present and helps provide history including reason the patient takes Coumadin is for atrial fibrillation Did you review nursing and triage notes (agree or disagree)? Why? @ -I reviewed and agree with nursing and triage notes Were old charts reviewed (outside hosp., previous admission, EMS record, old EKG, old radiological studies, urgent care reports/EKG's, shelter records)? Report findings @ -No old charts were reviewed Differential Diagnosis (chest pain, altered mental status, abdominal pain women, abdominal pain men, vaginal bleeding, weakness, fever, dyspnea, syncope, headache, dizziness, GI bleed, back pain, seizure, CVA, palpatations, mental health)? @ -not applicable EKG interpreted by me (3pts min.). @ -As above X-rays interpreted by me (1pt min.). @ -None done CT interpreted by me (1pt min.). @ -None done U/S interpreted by me (1pt. min.). @ -None done What testing was considered but not performed or refused? (CT, X-rays, U/S, labs)? Why? @ -None What meds were considered but not given or refused? Why? @ -None Did you discuss the management of the patient with other professionals (professionals i.e. JAZMY[facility] Hudson, [employer], lab, RT, psych nurse, social scientist, application support lead, t eacher, desk officer, manager case)? Give summary @ -No Was smoking cessation discussed for >3mins.? @ -No Was critical care preformed (if so, how long)? @ -No Were there social determinants of health that impacted care today? How? (Homelessness, low income, unemployed, alcoholism, drug addiction, transportation, low edu. Level, literacy, decrease access to med. care, long-term, rehab)? @ -No Was there de-escalation of care discussed even if they declined (Discuss DNR or withdrawal of care, Hospice)? DNR status @ -No What co-morbidities impacted this encounter? (DM, HTN, Smoking, COPD, CAD, Cancer, CVA, ARF, Chemo, Hep., AIDS, mental health diagnosis, sleep apnea, morbid obesity)? @ -None Was patient admitted / discharged? Hospital course, mention meds given and ro laisha, prescriptions, significant lab abnormalities, going to OR and other pertinent info. @ -Patient and family are updated on results and plan. Patient will receive a dose of vitamin K and recommended holding his Coumadin until his follow-up appointment which is arty scheduled for . They're aware that patient will need to have his level be drawn and not to take Coumadin until further directed by primary care physician. Undiagnosed new problem with uncertain prognosis? @ -No Drug Therapy requiring intensive monitoring for toxicity (Heparin, Nitro, Insulin, Cardizem)? @ -No Were any procedures done? @ -No Diagnosis/symptom? @ -Coagulopathy Acute, or Chronic, or Acute on Chronic? @ -Acute Uncomplicated (without systemic symptoms) or Complicated (systemic symptoms)? @ -default Side effects of treatment? @ -No Exacerbation, Progression, or Severe Exacerbation? @ -No Poses a threat to life or bodily function? How? (Chest pain, USA, ND, pneumonia, PE, COPD, DKA, ARF, appy, cholecystitis, CVA, Diverticulitis, Homicidal, Suicidal, threat to staff... and all critical care pts) @ -No (Danny Lyle) - Lab Data Lab Results 01/27/23 01/27/23 01/27/23 Range/Units 14:34 14:34 14:34 WBC 6.7 (3.8-10.6) k/uL RBC 4.22 L (4.30-5.90) m/uL Hgb 13.0 (13.0-17.5) gm/dL Hct 42.1 (39.0-53.0) % MCV 99.8 (80.0-100.0) fL MCH 30.7 (25.0-35.0) pg MCHC 30.8 L (31.0-37.0) g/dL RDW 14.5 (11.5-15.5) % Plt Count 297 (150-450) k/uL MPV 8.4 Neutrophils % 85 % Lymphocytes % 7 % Monocytes % 6 % Eosinophils % 1 % Basophils % 0 % Neutrophils # 5.7 (1.3-7.7) k/uL Lymphocytes # 0.4 L (1.0-4.8) k/uL Monocytes # 0.4 (0-1.0) k/uL Eosinophils # 0.1 (0-0.7) k/uL Basophils # 0.0 (0-0.2) k/uL Manual Slide Review Performed Hypochromasia Slight Macrocytosis Slight PT 125.1 H (9.0-12.0) sec INR >10.0 H* (<1.2) APTT 51.8 H (22.0-30.0) sec Sodium 136 L (137-145) mmol/L Potassium 4.2 (3.5-5.1) mmol/L Chloride 101 (98-107) mmol/L Carbon Dioxide 22 (22-30) mmol/L Anion Gap 13 mmol/L BUN 17 (9-20) mg/dL Creatinine 0.86 (0.66-1.25) mg/dL Est GFR (CKD-EPI)AfAm >90 (>60 ml/min/1.73 sqM) Est GFR (CKD-EPI)NonAf 84 (>60 ml/min/1.73 sqM) Glucose 102 H (74-99) mg/dL Calcium 8.5 (8.4-10.2) mg/dL Total Bilirubin 0.9 (0.2-1.3) mg/dL AST 198 H (17-59) U/L ALT 154 H (4-49) U/L Alkaline Phosphatase 194 H (38-126) U/L Total Protein 7.2 (6.3-8.2) g/dL Albumin 3.3 L (3.5-5.0) g/dL Disposition <Kayley Russell - Last Filed: 01/27/23 14:05> Is patient prescribed a controlled substance at d/c from ED?: No Time of Disposition: 16:11 <Danny Lyle - Last Filed: 01/27/23 16:11> Clinical Impression: Coagulopathy Disposition: HOME SELF-CARE Condition: Stable Instructions (If sedation given, give patient instructions): Warfarin (By mouth) Additional Instructions: Please do follow-up with your primary care physician as planned. He will need to have your Coumadin level rechecked at that time. No Coumadin until directed by your primary care physician. Return for bleeding, black stools, worsening symptoms or any other concerns. Please have your primary care physician review all lab work from today. Referrals: Lexi Blackwood MD [Primary Care Provider] - 1-2 days
[2023-01-27 14:56] LABS: ALT 154 U/L (4-49); AST 198 U/L (17-59); African American GFR (CKD) >90 (>60 ml/min/1.73 sqM); Albumin 3.3 g/dL (3.5-5.0); Alkaline Phosphatase 194 U/L (38-126); Anion Gap 13 mmol/L; Blood Urea Nitrogen 17 mg/dL (9-20); Calcium 8.5 mg/dL (8.4-10.2); Carbon Dioxide 22 mmol/L (22-30); Chloride 101 mmol/L (98-107); Glucose 102 mg/dL (74-99); Non-African American GFR(CKD) 84 (>60 ml/min/1.73 sqM); Potassium 4.2 mmol/L (3.5-5.1); Sodium 136 mmol/L (137-145); Total Bilirubin 0.9 mg/dL (0.2-1.3); Total Protein 7.2 g/dL (6.3-8.2)
[2023-01-27 15:06] LABS: Basophils % (A) 0 %; Eosinophils # (A) 0.1 k/uL (0-0.7); Eosinophils % (A) 1 %; HCT 42.1 % (39.0-53.0); Hypochromasia Slight; Lymphocytes # (A) 0.4 k/uL (1.0-4.8); Lymphocytes % (A) 7 %; MCH 30.7 pg (25.0-35.0); MCHC 30.8 g/dL (31.0-37.0); MCV 99.8 fL (80.0-100.0); Macrocytosis Slight; Mean Platelet Volume 8.4; Monocytes # (A) 0.4 k/uL (0-1.0); Monocytes % (A) 6 %; Neutrophils # (A) 5.7 k/uL (1.3-7.7); Neutrophils % (A) 85 %; Platelet Count 297 k/uL (150-450); RBC 4.22 m/uL (4.30-5.90); RDW 14.5 % (11.5-15.5); WBC 6.7 k/uL (3.8-10.6)
[2023-01-27 15:32] LABS: Partial Thromboplastin Time 51.8 sec (22.0-30.0); Prothrombin Time 125.1 sec (9.0-12.0)
[2023-01-27 15:38] LABS: INR >10.0 (<1.2)
[2023-01-27] MEDS ORDERED: PHYTONADIONE ORAL 5 MG/5 ML ORAL.SYRG PO ONE (16:15)
[2023-01-27 16:47] VITALS: BP 112/70; PULSE 94; TEMP 97.9
== END 2023-01-27 16:47 | disposition home or self-care (01) ==
LOC: EC 13:04
DX: D68.9 Coagulation defect, unspecified (principal); J44.9 Chronic obstructive pulmonary disease, unspecified; E78.5 Hyperlipidemia, unspecified; I10 Essential (primary) hypertension; K21.9 Gastro-esophageal reflux disease without esophagitis; E11.9 Type 2 diabetes mellitus without complications; Z91.040 Latex allergy status; Z91.030 Bee allergy status; Z88.8 Allergy status to other drugs, medicaments and biological substances; Z79.01 Long term (current) use of anticoagulants; Z79.82 Long term (current) use of aspirin; Z79.899 Other long term (current) drug therapy
CPT/HCPCS: 36415; 80053; 85025; 85610; 85730; 99283

== ENCOUNTER → 2023-06-11 | Outpatient (CLI) | payer OTHER ==
[2023-06-11 17:47] LABS: C Reactive Protein <0.30 mg/dL (0.00-0.80)
== END | disposition home or self-care (01) ==
LOC: LABWHC1 10:52
PROVIDERS: ATTEND Psychiatry & Neurology Neurology
DX: E11.40 Type 2 diabetes mellitus with diabetic neuropathy, unspecified (principal); Z79.899 Other long term (current) drug therapy
CPT/HCPCS: 36415; 82607; 83036; 85652; 86140

== ENCOUNTER → 2023-06-12 | Outpatient (CLI) | payer OTHER ==
--- NOTE | 2023-06-12 13:16 | MR ---
EXAMINATION TYPE: MR lumbar spine wo/w con DATE OF EXAM: 06/12/2023 COMPARISON: CT lumbar spine 06/12/2023 HISTORY: Low back pain, Hx of spinal fracture. TECHNIQUE: Multiplanar, multisequence images of the lumbar spine were acquired without and with 7.5 mL intraveno us Gadavist gadolinium contrast. FINDINGS: Remote anterior wedge compression fracture of the L2 vertebral body with approximately 90% height los s centrally. There is approximately 6 mm of retropulsion. No edema. No paraspinal masses are identifi ed. Conus medullaris has a normal appearance. Multilevel disc desiccation. Multilevel anterior osteo phytosis. Type II Modic changes involving the inferior endplate of L4 and superior endplate of L5. Mu ltilevel Schmorl's nodes. No contrast enhancement to suggest metastasis. T12-L1: No significant central canal stenosis. The neural foramina are patent bilaterally. L1-L2: L2 compression deformity with 6 mm retropulsion. There is bilateral facet arthropathy. Results in [id number] central canal stenosis. Severe bilateral neuroforaminal stenosis. L2-L3: Broad-based disc bulge with ligamentum flavum buckling and bilateral facet arthropathy contrib utes to mild central canal stenosis. Mild bilateral neuroforaminal stenosis. L3-L4: Mild retrolisthesis. Broad-based disc bulge with ligamentum flavum buckling and bilateral face t arthropathy. There is mild central canal stenosis. Mild bilateral neuroforaminal stenosis. L4-L5: Broad-based disc bulge without significant effacement of the anterior thecal sac. Bilateral fa cet arthropathy. Mild bilateral neural foraminal stenosis. L5-S1: No herniation, protrusion or disc bulging. No canal stenosis is present. Bilateral facet arth ropathy. Mild bilateral neuroforaminal stenosis. IMPRESSION: 1. Remote anterior wedge compression deformity of the of the L2 vertebral body with approximately 90 % height loss and 6 mm of retropulsion. Results in mild to moderate central canal stenosis and bilate ral severe neural foraminal stenosis. No edema. 2. No abnormal contrast enhancement to suggest metastasis. 3. Mild multilevel degenerative disc disease and facet arthropathy as described above.
== END | disposition home or self-care (01) ==
LOC: RADCTMAIN 10:25
PROVIDERS: ATTEND Orthopaedic Surgery
DX: S32.020A Wedge compression fracture of second lumbar vertebra, initial encounter for closed fracture (principal); M51.36 Other intervertebral disc degeneration, lumbar region; M47.816 Spondylosis without myelopathy or radiculopathy, lumbar region; M48.061 Spinal stenosis, lumbar region without neurogenic claudication
CPT/HCPCS: 72131; 72158; A9585

== ENCOUNTER → 2023-08-18 | Outpatient (CLI) | payer MEDICARE, OTHER ==
--- NOTE | 2023-08-06 13:26 | NM ---
EXAMINATION TYPE: NM myocardial SPECT single DATE OF EXAM: 08/06/2023 COMPARISON: NONE CLINICAL INDICATION: Male, 78 years old with history of I38 ENDOCARDITIS, VALVE UNSPECIFIED I31.39 OT HER P; Following administration of 9.91 mCi Tc 99m Sestamibi. Images obtained minutes post injection. FINDINGS: Calculated ejection fraction is 53% Only resting images are submitted. Therefore cannot assess for stress induced reversible ischemia. Lo calized area of reduced uptake is seen involving the apical septal myocardium. Correlate clinically. IMPRESSION: Limited exam as the patient could not tolerate stress imaging. Ejection fraction is 53%. See above.
[~2023-08-18] MED LIST changes: -LACTATED RINGERS 1,000 ML IV SCH; +REGADENOSON 0.4 MG/5 ML SYRINGE IV PRN
--- NOTE | 2023-08-18 11:02 | CA ---
Lexiscan Nuclear Stress Test Report Name: Evan Webb Exam Date: 08/18/2023 10:25 Exam Location: [facility] Stress Ht (in): 64 Wt (lb): 174 BSA: 1.84 Ordering Phys: Tamar Del Castillo MD Referring Phys: Tamar Del Castillo MD Technologist: CAYETANO Age: 78 Gender: M : 1945 Procedure CPT: Indications: I38 heart disease ICD-10 Codes: Patient History: Medications: LOSARTAN, METOPROLOL Meds past 24 hrs: Pretest Chest Pain: STRESS TEST Lexiscan Protocol Exercise Duration (min:sec): 02:[address] Depressions (mm): Angina Score: Oh Score: Resting HR (bpm): 84 Peak HR (bpm): 108 Resting BP (mmHg): 155 / 110 Peak BP (mmHg): 154 / 101 MPHR: 143 Target HR: 122 % MPHR: 76 METS: 1.0 Total Dose: Peak Dose: Atropine: Double Product: 75604 BP Response: Stress Termination: PROTOCOL COMPLETE Stress Symptoms: No chest pain or symptoms Stress Summary: ECG ANALYSIS Resting ECG: Stress ECG: CONCLUSIONS Baseline EKG revealed atrial fibrillation moderate ventricular rate IVCD with poor R-wave progression. With Lexiscan administration the heart rate changed from 93-103 bpm and the blood pressure changed from 155/110-146/99. Patient did not have any significant symptoms. EKG remained inconclusive. By EKG criteria this is an inconclusive Lexiscan stress test. The nuclear scan results which are more pertinent will be reported with radiologist Dr. Venus Greer MD (Electronically Signed) Final Date: 18 August 2023 11:01
== END | disposition home or self-care (01) ==
LOC: RADNMMAIN 08-06 08:53
PROVIDERS: ATTEND Internal Medicine Cardiovascular Disease
DX: I38 Endocarditis, valve unspecified (principal); I31.39 Other pericardial effusion (noninflammatory); I35.0 Nonrheumatic aortic (valve) stenosis; I47.20 Ventricular tachycardia, unspecified; I10 Essential (primary) hypertension
CPT/HCPCS: 78451; A9500; 78452; 93017

== ENCOUNTER → 2023-09-23 | Outpatient (CLI) | payer OTHER | END | disposition home or self-care (01) | LOC: LABPAT 09:15 | PROVIDERS: ATTEND Orthopaedic Surgery | DX: Z01.812 Encounter for preprocedural laboratory examination (principal); M48.061 Spinal stenosis, lumbar region without neurogenic claudication; S32.009A Unspecified fracture of unspecified lumbar vertebra, initial encounter for closed fracture; X58.XXXA Exposure to other specified factors, initial encounter; Z22.322 Carrier or suspected carrier of Methicillin resistant Staphylococcus aureus | CPT/HCPCS: 86850; 86900; 86901; 87070 ==

== ENCOUNTER 2023-09-28 05:46 | Inpatient (IN) | payer MEDICARE, OTHER ==
[2023-09-22 15:02] VITALS: BMI 28.9
[~2023-09-28 05:46] MED LIST changes: -REGADENOSON 0.4 MG/5 ML SYRINGE IV PRN; +TRANEXAMIC 1,000 MG/100ML-NACL 1,000 MG in SALINE 1 100ML.BAG IVPB PRN
--- NOTE | 2023-09-28 06:40 | P.HPOR ---
History of Present Illness H&P Date: 09/23/23 .D:Date: 09/23/23 : 08:46am .T:Title: [facility] History and Physical Date of :[birth year] [id number]: NKDA Age: 78 year Height: 5'4" Weight: 174 lbs BMI: 29.87 kg/m2 Occupation: Retired VAS: 5 Hand: Right IMPRESSION: It was my pleasure to have seen and examined Evan. I reviewed the patient's clinical syndrome, physical findings, and imaging studies during the appointment today. It is my impression that the patient has a diagnosis of. 1. Lumbar spondylosis with stenosis 2.L1-2 wedge compression fractures 3. Grade 1 retrolisthesis L3 on L4 4. Mechanical low back pain .DX:Diagnosis: Fracture of lumbar vertebra : ICD10 = S32.009A / ICD9 = 805.4 / SNOMED = 523318267 .DX:Diagnosis: Collapse of lumbar vertebra : ICD10 = M48.56XA / ICD9 = 733.13 / SNOMED = 595334023 .DX:Diagnosis: Low back pain : ICD10 = M54.50 / ICD9 = 724.2 / SNOMED = 361012649 I outlined the natural course history without intervention and various interventional options. Spine Surgery Risk Review Mr. Webb is presenting for evaluation of low back and bilateral lower extremity pain. It was my pleasure to have seen and examined Mr. Webb. In our visit today we have had a chance to go over subjective complaints, physical examination findings and treatments including the natural course history without intervention and various interventional options. The patients imaging demonstrates: [facility] of LumbarSpine: - Re-reviewed with the patient today. IMPRESSION: 1. Remote anterior wedge compression deformity of the of the L2 vertebral body with approximately 90% height loss and 6 mm of retropulsion. Results in mild to moderate central canal stenosis and bilateral severe neural foraminal stenosis. No edema. 2. No abnormal contrast enhancement to suggest metastasis. 3. Mild multilevel degenerative disc disease and facet arthropathy as described above. CT [facility] 01[facility]16[facility]23 of Abd/Pelvis: - Re-reviewed with the patient today. Multilevel spondylotic changes with diminished disc heights. Mild Grade 1 retrolisthesis L3 onto L4. No fractures noted. XRay Lumbar Multiview (AP, Lateral, Flexion, Extension) with AP pelvis; 5 views taken at [facility] on 06/03/23: - Re-reviewed with the patient today. Multilevel spondylotic and degenerative changes with mild curvature. Multilevel diminished disc height. Grade 1 retrolisthesis L3 and L4. L1-L2 compression fracture with collapse of L1 into L2. On physical exam, Mr. Webb demonstrates: A continued dull, ache-like pain throughout the low back tat radiates down into the bilateral lower extremities to the anterior mid thigh. The patient states that her lower extremity pain is associated with intermittent mild numbness and tingling. The patient states her pain worsens after prolonged activity or lester riding in the car. The patient reports experiencing severe sleep disturbances related to his ongoing pain and associated symptoms. I have explained to the patient that as their condition progresses it will cause further neurological deficits and eventual paralysis. Based on the patients imaging, physical exam, and the rapid progression and disabling nature of their symptoms, at this time I recommend surgery in the form of a: L1-2 open treatment fracture with T11-L4 stabilization . I discussed the risk and benefits of this procedure at length with Mr. Webb. The patient and his agreed to considered pursuing the procedure abovementioned. Prior to surgery, she should follow up with her PCP (Cardio, ID, IM etc) for clearance. Questions were invited and answered, and the patient wishes to proceed as outlined below. Currently, I am recommendin. L1-2 open treatment fracture with T11-L4 stabilization 2.Review of surgical risks and benefits as well as an educational packet on the proposed surgical procedure. Risks: All surgical procedures come with inherent risks, including those related to positioning, anesthesia, intraoperative findings, and postoperative complications. It is important to understand that surgery does not come with any guarantee of a successful outcome as complications and adverse events are always possible. The patient was given a handout in office today discussing the surgical procedure and risks associated with the intervention, both of which were discussed with the patient. These risks include but are not limited to the following: * Experiencing same, different or even worse symptoms in back, neck, arms, or legs compared to before surgery. Requiring further surgery or other forms of treatment presently or at some time in the future at same or other levels of the intended spine surgery. On an extreme but fortunately relatively rare basis severe complication such as blindness, stroke, heart attack, temporary and/or permanent nerve injury, paralysis, coma, or may occur, sometimes without known explanation. Surgical complications may include but are not limited to risk of infection, fluid accumulation in the surgical dissection site, including a seroma or hematoma, that requires additional surgery, wound drainage, bleeding, new numbness or weakness, vision changes/loss, spinal fluid leakage, non-healing and/or infected incision, headaches, difficulty or inability to swallow, hoarseness, hemopneumothorax, pneumothorax, impotence, retrograde ejaculation, vaginal dryness; injury to nerves, spinal cord, blood vessels, lymphatics or other vital organs (i.e., bowel injury, injury to the great vessels); heterotopic bone formation; complications related to the hardware such as screws, rods, cages including misplaced hardware, device failure, instrumentation at the wrong spine level, hardware fracture/breakage, or hardware loosening; vertebral failure of the spinal column above or below the newly placed hardware; retained surgical instrumentations or devices and the need for further surgery. * Medical risks of the planned spine surgery include but are not limited to g eneralized Infections to the whole body or local areas outside of the surgical site (sepsis), heart attack, bleeding, anaphylaxis, meningitis, seizure, epilepsy, hearing loss, burn san, laceration of the head or other areas of the body, bruising, hypersensitivity of the skin, bladder over distension; allergic reaction; shoulder injury related to positioning; fat, blood and air clots to other areas of the body like heart, lungs, brain; failure of internal organs such as lungs, kidneys, liver and excessive bleeding. If blood transfusions are necessary, note that transfusions may cause intolerance reactions such as anaphylaxis or other complex reactions. Despite best efforts, the results of spine surgery might not heal in terms of bone, soft tissues such as skin, fascia, ligaments, and joints. Additionally, in order to achieve best possible results, spine surgery may be carried out beyond the initially planned levels and involve decompression, fusion including insertion of hardware at levels other than the original intended area of surgical interest change some portions of the procedure in order to ensure the best possible outcomes. With spine surgery and spinal fusion, there are different off label uses of instrumentation (devices, implants and hardware) as well as biological substances (bone morphogenic proteins, demineralized bone matrix) as well as using extra bone from allograft sources (i.e. cadaver bone) or autograft (iliac crest bone, ribs, or the spine itself). The patient has been given information about these practices and their inherent risks and benefits. [facility] is an educational center that serves as a training facility for neurosurgical and orthopedic SERVICE PL[employer]NER and Nursing students. Physician assistants are medically trained surgical providers who function in the outpatient, inpatient, and operating room setting under the direct supervision of the attending surgeon. [facility] has multiple operating rooms with single and overlapping rooms running daily. They currently function under the required guidelines as produced by the [facility] Finance Committee with regards to the overlapping rooms and will continue to comply with changes to this policy as they occur. The requirements include and are complied with as follows: (1) the critical portions of the overlapping rooms will not occur at the same time, (2) the attending phys ician will be physically present during the critical portions of the procedure and immediately available during the entire case, and (3) a back-up attending is designated should the primary attending not be immediately available. The patient has had a chance to review all the listed information, has been given print outs detailing this information, and has had all his/her questions answered to their satisfaction. It was my pleasure to have seen and examined Mr. Webb. In our visit today we have had a chance to go over my understanding of our patient's current condition, the natural course history without intervention and various interventional options. Questions were invited and answered, and the patient wishes to proceed as outlined above. I have seen and examined the patient for 25 minutes and we have spent more than 50% of the time in repeat and detailed counseling about the patient's condition, its natural course history with out and as much as can be predicted with surgery and re-review of various surgical treatment options. In conclusion, Mr. Webb requested we proceed with the above suggested surgery and are willing to accept risks and limitations of the suggested surgery as nature of the disease process and our best attempts at treatment for the condition. Thank you again for allowing us to be part of your patient's care. Please don't hesitate to contact me if you have any further questions. Follow- up: Post procedure Patient Education: (Informational booklet, instructions, etc) given at today's appointment: Yes .ED:Patient Education: Y Medications Reviewed: YES In our visit today Mr. Webb and I have had a chance to go over my understanding of the patient's current condition, the natural course history without intervention and various interventional options. Questions were invited and answered, and the patient wishes to proceed as outlined above. I will be sure to keep you updated afterMr. Webb returns here for further follow-up. Thank you again for your referral. Please do not hesitate to contact me if you have any further questions. Signed and authenticated by: Milo Lomeli DO [facility] Complex and Minimally Invasive Spine Surgery [address] [facility], [address] [address] This message is confidential, intended only for the named recipient(s) and may contain information that is privileged or exempt from disclosure under applicable law. If you are not the intended recipient(s), you are notified that the dissemination, distribution or copying of this information is strictly prohibited. If you received this message in error, please notify the sender then delete this message. Patient verbalizes understanding of the information discussed. The above note was initiated by Meghana Barrios, physician recording staff assistant for Dr. Milo Lomeli. This note has been reviewed by Dr. Lomeli, who has made his personal changes and impressions for this document. CC: Lexi Blackwood M.D. # SIGNED BY Milo Lomeli ([facility])09/23/2023 02:25PM Past Medical History Past Medical History: Cancer, COPD, Diabetes Mellitus, GERD/Reflux, Hyperlipidemia, Hypertension, Prostate Disorder Additional Past Medical History / Comment(s): COPD WITH SOB (NO RX)-( PATROL [facility]Y FOR 45 YEARS). "ENLARGED HEART VALVES" PER PATIENT. HX OF PROSTATE CANCER WITH SURGERY, HX OF THROAT CANCER WITH SURGERY-CHEMO AND RADIATION (2016), LOW IRON. CAMPO History of Any Multi-Drug Resistant Organisms: None Reported Past Surgical History: Orthopedic Surgery, Prostate Surgery Additional Past Surgical History / Comment(s): RIGHT SHOULDER X2, EGD'S, COLONOSCOPIES, MICAH CATARACTS, PATIENT STATES ESOPHAGUS REMOVED AND STOMACH USED. PROSTATE SX FOR CANCER, COLONOSCOPY, EGD, Past Anesthesia/Blood Transfusion Reactions: No Reported Reaction Smoking Status: Never smoker - Past Family History Sister(s) Family Medical History: Cancer Additional Family Medical History / Comment(s): AT 13 YRS OF AGE. Medications and Allergies Home Medications Medication Instructions Recorded Confirmed Type Omeprazole 20 mg PO DAILY 05/25/18 09/22/23 History Multivitamins, Thera [Multivitamin 1 tab PO DAILY 09/26/19 09/22/23 History (formulary)] Cholecalciferol [Vitamin D3 (25 25 mcg PO DAILY 10/04/21 09/22/23 History Mcg = 1000 Iu)] Cyanocobalamin (Vitamin B-12) 1,000 mcg PO DAILY 10/04/21 09/22/23 History [Vitamin B-12] Ferrous Sulfate [Iron (65 MG 325 mg PO HS 10/04/21 09/22/23 History Elemental)] rOPINIRole HCL [Requip] 0.5 mg PO HS 07/03/22 09/22/23 History Atorvastatin [Lipitor] 40 mg PO HS 11/25/22 09/22/23 History Carboxymethylcellulose Sodium 1 drop LEFT EYE HS 11/25/22 09/22/23 History [Thera Tears] Latanoprost/Pf [Latanoprost 0.005% 1 drop RIGHT EYE HS 11/25/22 09/22/23 History Eye Drop] Tamsulosin [Flomax] 0.4 mg PO DAILY 7 Days #7 cap 12/27/22 09/22/23 Rx Sodium Bicarbonate Tab 650 mg PO BID #60 tab 01/02/23 09/22/23 Rx Acetaminophen [Tylenol 8 Hour] 650 mg PO Q8H PRN 01/16/23 09/22/23 History Aspirin EC [Ecotrin Low Dose] 81 mg PO HS 01/16/23 09/22/23 History Potassium Chloride [Klor-Con M20] 20 meq PO DAILY@0700 01/16/23 09/22/23 History Cyclobenzaprine [Flexeril] 5 mg PO HS 09/22/23 09/22/23 History Gabapentin 300 mg PO HS 09/22/23 09/22/23 History L.acidoph,Paracasei, B.lactis 1 each PO DAILY 09/22/23 09/22/23 History [Probiotic] Losartan [Cozaar] 25 mg PO HS 09/22/23 09/22/23 History Metoprolol Succinate [Metoprolol 25 mg PO HS 09/22/23 09/22/23 History Succinate ER] Pioglitazone [Actos] 15 mg PO HS 09/22/23 09/22/23 History Warfarin [Coumadin] 2.5 mg PO DIRECTED 09/22/23 09/22/23 History Allergies Allergy/AdvReac Type Severity Reaction Status Date / Time bee venom protein (honey bee) Allergy Severe Anaphylaxis Verified 09/22/23 14:06 latex Allergy Unknown Rash/Hives Verified 09/22/23 14:06 adhesive tape Allergy Unknown-Per Verified 09/22/23 14:06 Dr Dickens's office Physical Examination Osteopathic Statement: *. No significant issues noted on an osteopathic structural exam other than those noted in the History and Physical/Consult.
[2023-09-28] MEDS ORDERED: ROCURONIUM 10 MG/ML (5 ML VIAL) IV ONE (07:00)
[2023-09-28] MEDS ORDERED: MIDAZOLAM 2 MG/2 ML VIAL ONE (07:00)
[2023-09-28] MEDS ORDERED: PHENYLEPHRINE 10 MG/ML VIAL ONE (07:00)
[2023-09-28] MEDS ORDERED: LIDOCAINE 1% INJ 10MG/ML (20 ML MDV) ONE (07:00)
[2023-09-28] MEDS ORDERED: VASOPRESSIN 20 UNIT/ML 1 ML VIAL ONE (07:00)
[2023-09-28] MEDS ORDERED: GLYCOPYRROLATE 0.2 MG/ML 2 ML VIAL ONE (07:00)
[2023-09-28] MEDS ORDERED: fentaNYL (PF) 50 MCG/ML 2 ML AMP ONE (07:00)
[2023-09-28] MEDS ORDERED: ePHEDrine 50 MG/ML 1 ML VIAL ONE (07:00)
[2023-09-28] MEDS ORDERED: PROPOFOL 10 MG/ML 20 ML VIAL IV ONE (07:00)
[2023-09-28] MEDS ORDERED: NEOSTIGMINE 1 MG/ML 10 ML VIAL ONE (07:00)
[2023-09-28] MEDS ORDERED: HYDROmorphone (PF) 1 MG/ML ONE (07:00)
[2023-09-28 07:02] LABS: Glucose,Whole Blood 96 mg/dL (70-110)
[2023-09-28] MEDS: DEXAMETHASONE SOD PHOSPHATE 4 MG/ML 1 ML VIAL IVP ONE (07:14)
[2023-09-28] MEDS: LACTATED RINGERS 1,000 ML IV SCH (07:14)
[2023-09-28] MEDS: ONDANSETRON 4 MG/2 ML VIAL IVP PRN (07:14)
[2023-09-28] MEDS: GABAPENTIN 300 MG CAP PO PRN (07:20)
[2023-09-28] MEDS: ACETAMINOPHEN TAB 500 MG TAB PO PRN (07:20)
[2023-09-28] MEDS: LACTATED RINGERS 1,000 ML IV ONE ×2 (07:32→10:23)
[2023-09-28 08:06] LABS: INR 1.2 (<1.2); Prothrombin Time 12.6 sec (10.0-12.5)
[2023-09-28] MEDS: THROMBIN (BOVINE) 5,000 UNIT VIAL TOPICAL ONE (08:20)
[2023-09-28] MEDS: ceFAZolin 3,000 MG in SODIUM CHLORIDE 0.9% IRRIGATIO 3,000 ML IRRIGATION ONE (08:20)
[2023-09-28] MEDS: GENTAMICIN 80 MG in SODIUM CHLORIDE 0.9% IRRIGATIO 3,000 ML IRRIGATION ONE (08:20)
[2023-09-28] MEDS: GELATIN SPONGE,ABSORB (LARGE) 1 EACH SPONGE TOPICAL ONE (08:20)
[2023-09-28 08:29] LABS: Basophils % (A) 1 %; Eosinophils # (A) 0.3 k/uL (0-0.7); Eosinophils % (A) 10 %; HCT 33.6 % (39.0-53.0); HGB 11.2 gm/dL (13.0-17.5); Lymphocytes # (A) 0.5 k/uL (1.0-4.8); Lymphocytes % (A) 16 %; MCH 34.9 pg (25.0-35.0); MCHC 33.4 g/dL (31.0-37.0); MCV 104.6 fL (80.0-100.0); Macrocytosis Moderate; Mean Platelet Volume 8.3; Monocytes # (A) 0.2 k/uL (0-1.0); Monocytes % (A) 6 %; Neutrophils # (A) 2.2 k/uL (1.3-7.7); Neutrophils % (A) 65 %; Platelet Count 105 k/uL (150-450); RBC 3.22 m/uL (4.30-5.90); RDW 14.1 % (11.5-15.5); WBC 3.3 k/uL (3.8-10.6)
[2023-09-28] MEDS: VANCOMYCIN 1,000 MG VIAL MISCELLANE ONE (10:04)
[2023-09-28] MEDS ORDERED: MAGNESIUM HYDROXIDE 2,400 MG/30 ML CUP PO PRN (10:50)
[2023-09-28] MEDS ORDERED: HYDROcodone/APAP 5-325MG 1 EACH TAB PO PRN (10:50)
[2023-09-28] MEDS ORDERED: SENNOSIDES-DOCUSATE SODIUM 1 EACH TAB PO PRN (10:50)
[2023-09-28] MEDS: HYDROmorphone 0.5 MG/0.5 ML SYRINGE IVP PRN (12:22)
--- NOTE | 2023-09-28 14:26 | FL ---
EXAMINATION TYPE: FL guidance operating room, XR lumbar spine 2 or 3V Intraoperative/procedural fluor oscopic services were provided. Total fluoroscopy time is 26 seconds . Please see the operative/proce dural note for further details. DAP: 2044 [id number]
[2023-09-28] MEDS: METOPROLOL TARTRATE 5 MG/5 ML VIAL IVP ONE (15:20)
[2023-09-28] MEDS: ACETAMINOPHEN TAB 325 MG TAB PO SCH (15:49)
[2023-09-28 15:54] LABS: Glucose,Whole Blood 118 mg/dL (70-110)
[2023-09-28] MEDS: GABAPENTIN 300 MG CAP PO SCH ×2 (16:30→21:22)
[2023-09-28 16:50] LABS: Glucose,Whole Blood 118 mg/dL (70-110)
[2023-09-28] MEDS: HYDROcodone/APAP 10-325MG 1 EACH TAB PO PRN (20:15)
[2023-09-28 20:32] LABS: Glucose,Whole Blood 185 mg/dL (70-110)
[2023-09-28] MEDS: CYCLOBENZAPRINE 5 MG TAB PO SCH (21:25)
[2023-09-28] MEDS: FERROUS SULFATE 325 MG TAB PO SCH (21:37)
[2023-09-28] MEDS: ATORVASTATIN 40 MG TAB PO SCH (21:38)
[2023-09-28] MEDS: CYCLOBENZAPRINE 5 MG TAB PO PRN (21:38)
[2023-09-28] MEDS: METOPROLOL SUCCINATE (ER) 25 MG TAB.ER.24H PO SCH (21:38)
[2023-09-28] MEDS: LATANOPROST 0.005% OPHTH DROPS 2.5 ML BTL RIGHT EYE SCH (21:38)
[2023-09-28] MEDS: SODIUM BICARBONATE TAB 650 MG TAB PO SCH (21:42)
[2023-09-28] MEDS: ARTIFICIAL TEARS-HYPROMELLOSE DROPS 15 ML BTL LEFT EYE SCH (21:42)
[2023-09-29 05:34] LABS: Glucose,Whole Blood 104 mg/dL (70-110)
[2023-09-29] MEDS: POTASSIUM CHLORIDE ER 20 MEQ TAB.ER PO SCH (06:32)
[2023-09-29] MEDS: PANTOPRAZOLE 40 MG TABLET PO SCH (06:32)
[2023-09-29] MEDS: HYDROmorphone 1 MG/ML 1 ML SYRINGE IVP PRN (06:41)
--- NOTE | 2023-09-29 06:46 | P.OP ---
Date of Procedure: 09/28/23 Preoperative Diagnosis: 1. 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 L2 BURST FRACTURE SECONDARY TO CHARCOT SPINE 3. KYPHOTIC DEFORMITY DUE TO FRACTURE AND CHARCOT 4. BACK PAIN 5. LE PARESTHESIAS 6. COMPLEX MEDICAL PATIENT Postoperative Diagnosis: 1. 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 L2 BURST FRACTURE SECONDARY TO CHARCOT SPINE 3. KYPHOTIC DEFORMITY DUE TO FRACTURE AND CHARCOT 4. BACK PAIN 5. LE PARESTHESIAS 6. COMPLEX MEDICAL PATIENT Procedure(s) Performed: 1. OPEN TREATMENT L1-2 FRACTURE 2. POSTEROLATERAL INSTRUMENTED FUSION T12-L4 3. BILATERAL LAMINECTOMY, FACETECTOMY AND FORAMINOTOMY L1-2; L2-3 4. SEGMENTAL INSTRUMENTATION T12-L4 5. USE OF TARAS NAVIGATION FOR SCREW PLACEMENT AND DECOMPRESSION USE OF IONM ALL SCREWS TESTING >20 mA CPTMOD 22 THIS CASE TOOK 75% LONGER THAN EXPECTED DUE TO CORMORBID CONDITIONS, EXTENT OF LUMBAR DISEASE AND HIGH TECHNICALITY OF THE CASE. EXPECTED CODES: 18306, 09839, 54421, 98957, 74163, 22420, 70452 Implants: -TARAS EVEREST SCREW AND AUDREY SYSTEM -MAGNETOS XL Anesthesia: GETA Surgeon: Milo Lomeli Ship Painter Helper #1: Carlos Enrique Hay (was present from positioning to screw placement) Ship Painter Helper #2: Larry Osman (was present from screw placement to end of case) Estimated Blood Loss (ml): 400 IV fluids (ml): 1,200 Urine output (ml): 450 Pathology: none sent Condition: stable Disposition: PACU Indications for Procedure: Mr. Webb is presenting for evaluation of low back and bilateral lower extremity pain. It was my pleasure to have seen and examined Mr. Webb. In our visit today we have had a chance to go over subjective complaints, physical examination findings and treatments including the natural course history without intervention and various interventional options. The patients imaging demonstrates: [facility] of LumbarSpine: - Re-reviewed with the patient today. IMPRESSION: 1. Remote anterior wedge compression deformity of the of the L2 vertebral body with approximately 90% height loss and 6 mm of retropulsion. Results in mild to moderate central canal stenosis and bilateral severe neural foraminal stenosis. No edema. 2. No abnormal contrast enhancement to suggest metastasis. 3. Mild multilevel degenerative disc disease and facet arthropathy as described above. CT [facility] from 01/16/23 of Abd/Pelvis: - Re-reviewed with the patient today. Multilevel spondylotic changes with diminished disc heights. Mild Grade 1 retrolisthesis L3 onto L4. No fractures noted. XRay Lumbar Multiview (AP, Lateral, Flexion, Extension) with AP pelvis; 5 views taken at [facility] on 06/03/23: - Re-reviewed with the patient today. Multilevel spondylotic and degenerative changes with mild curvature. Multilevel diminished disc height. Grade 1 retrolisthesis L3 and L4. L1-L2 compression fracture with collapse of L1 into L2. On physical exam, Mr. Webb demonstrates: A continued dull, ache-like pain th roughout the low back tat radiates down into the bilateral lower extremities to the anterior mid thigh. The patient states that her lower extremity pain is associated with intermittent mild numbness and tingling. The patient states her pain worsens after prolonged activity or lester riding in the car. The patient reports experiencing severe sleep disturbances related to his ongoing pain and associated symptoms. I have explained to the patient that as their condition progresses it will cause further neurological deficits and eventual paralysis. Based on the patients imaging, physical exam, and the rapid progression and disabling nature of their symptoms, at this time I recommend surgery in the form of a: L1-2 open treatment fracture with T11-L4 stabilization . I discussed the risk and benefits of this procedure at length with Mr. Webb. The patient and his agreed to considered pursuing the procedure abovementioned. Prior to surgery, she should follow up with her PCP (Cardio, ID, IM etc) for clearance. Questions were invited and answered, and the patient wishes to proceed as outlined below. Currently, I am recommendin. L1-2 open treatment fracture with T11-L4 stabilization Description of Procedure: OPEN TREATMENT OF L1-2 FRACTURE AND CHARCOT SPINE The patient was seen and examined in the preoperative area. All preoperative protocols were followed. Informed consent was obtained risks and benefits of the procedure were discussed at length. Risks including bleeding infection damage to the surrounding tissue and risk of reoperation were discussed with the patient. Risk of anesthesia up to and including was a discussed with the patient. These are outlined in the risk review. They were willing to accept these risks and all of the risks of surgery. The patient was given a weight-based dose of antibiotics in the form of ANCEF. The patient was seen and evaluated by the anesthesia team who deemed them fit for surgery. The site was marked, the patient was willing to proceed with the procedure. The patient was transferred to the operative suite by the Department of anesthesia. They were then drifted off to sleep by the department anesthesia and [anesthesia type] was performed. The patient tolerated this well. [Alcaraz catheter was placed by nursing staff, atraumatically]. Once confirmation of lines and ventilation the patient was transferred to a [prone Roberto table very carefully]. All bony prominences including wrists, elbows, axilla, chest, hips, and thighs, and feet were padded very well. Special attention was paid to the genitalia and these were padded accordingly. SCDs were placed on bilateral lower extremities and were connected. Arms were well padded and placed [on arm boards up and out in the 90/90 position]. Once in position, again we confirmed good ventilation capabilities and that lines were running appropriately. The patient's THORACOLUMBAR spine was then exposed. 1010s were placed outlining the incision site. Standard alcohol was used to clean the incision site and allowed to dry. C-arm was used to biomark the patient and confirm level for incision which was marked with a skin marker. Operative briefing was performed with all teams and everyone in agreement to proceed. The patient was then prepped and draped in a normal sterile fashion. Timeout was then performed and all parties were in agreement with the procedure to be performed. INCISION WAS MADE OVER THE PREVIOUSLY BY MARKED AREA AND DISSECTION TAKEN DOWN TO THE FASCIA WHICH WAS IDENTIFIED AND CLEANED WITH A Ruiz. mIDLINE FASCIOTOMY WAS THEN MADE OVER THE AREA AND DISSECTION TAKEN DOWN THE LAMINA FOR SUBPERIOSTEAL DISSECTION. sUBPERIOSTEAL DISSECTION WAS TAKEN OUT OVER THE TRANSVERSE PROCESSES OF t 11 THROUGH l4 THIS WAS FOR VISUALIZATION. oNCE DISSECTION WAS DONE LATERAL IMAGE CONFIRMED LEVELS WITH pENFIELD 4 PLACED AT THE l1-l2 REGION FOR FRACTURE IDENTIFICATION. oNCE THIS WAS DONE THE TRACKER FOR [email or web address] NAVIGATION WAS PLACED IN THIS AREA AND A 3-d INTRAOPERATIVE Zhiem spin was obtained and registered. Once it was confirmed to be accurate screws were placed with a navigated bur navigated all tapped and navigated screwdriver. Navigated bur was used to make a captain airline pilot hole followed by a navigated all tapped followed by a measured screw placed on a navigated screwdriver. Screws were placed at T12 bilaterally L1 bilaterally L3 and L4 bilaterally x-ray then confirmed in AP and lateral good screw placement. Screws then tested all tested above 20 mA. We then proceeded to decompression in the area. Bilateral laminectomy facetectomy and foraminotomies were performed from L1 through L3. There is exuberant scar tissue ligamentous tissue in this area due to the fracture and the kyphosis. There was foraminal stenosis which was relieved and lateral recess stenosis as well. This was relieved as well. Good decompression was accomplished. We investigated the disc space for what was left of it and the Charcot joint of L1-L2 and roughened this area. There is no purulence in this area any longer however there was a pseudo-joint. The bone was extremely soft however it would not take a cage. Posterior lateral gutters were then decorticated with high-speed bur for posterior lateral fusion. We then sized and selected rods and they were bent to appropriate shape for reduction. rods were then secured into L4 bilaterally and sequentially reduced into the upper screws up to T12 to allow for adequate reduction. AP and lateral fluoroscopy after this confirmed good reduction and druze of alignment. Neuro monitoring stayed stable throughout this process. Set screws were then placed and final tightened. Cross-links were selected and placed over the laminectomy area. The wound was then copiously irrigated with 3 L of Ancef 3 L of gentamicin irrigation followed by 6 L of normal sterile saline and Betadine. Surgicel was placed over the dura which was intact without injury. MagnetOs place the posterior lateral gutters along with autograft. Deep drain was placed and sewn into position on the skin 2 g of vancomycin powder was then placed within the wound. Checklist was run and everything was complete. We then proceeded with closure deep fascia was closed with #1 PDS followed by a #1 running PDS strata fix. 0 Vicryl was then placed in the deep subcu tissue and oh strata fix PDS was then placed in the subdermal tissue and skin was approximated with skin larry. Wound edges approximated very well. The drain was sewn into position. Good suction. We then cleaned and dressed the wound sterile dressings op to foam 4 x 4's and Tegaderms. The patient was transferred back to their hospital bed atraumatically. [Drain continued to hold suction and were in good position]. Patient was then awakened and extubated by the department of anesthesia having tolerated the procedure very well with no complications. They were transferred to the postoperative care unit in stable condition.
--- NOTE | 2023-09-29 07:28 | P.PN ---
Progress Note - Text Progress Note Date: 09/29/23 postoperative computed tomography scan of thoracic lumbar spine is reviewed. Hardware is in good position good maintenance of alignment reduction fracture and anatomy noted. No complicating process seen at this time.
--- NOTE | 2023-09-29 09:14 | P.PN ---
Subjective Progress Note Date: 09/29/23 Principal diagnosis: 1. Lumbar spondylosis with stenosis 2.L1-2 wedge compression fractures 3. Grade 1 retrolisthesis L3 on L4 4. Mechanical low back pain Patient seen and examined this morning. Patient is sitting up in chair at bedside. He reports that he tolerated activity well. Patient states his pain is controlled on current regimen. Surgical dressing to the lumbar region is clean dry and intact with Hemovac present, with 245 mL output overnight. Patient is looking forward to working with physical therapy this morning. Prescription for TLSO brace has been placed in chart. Patient reports that his plan is to go to subacute rehab at discharge, he is hoping for [facility]. Continue to encourage patient to be up in chair for all meals and to work with physical therapy today. Patient to utilize incentive spirometer while awake. No acute concerns. Objective - Vital Signs Vital signs: Vital Signs Temp 97.9 F 09/29/23 07:17 Pulse 78 09/29/23 07:17 Resp 15 09/29/23 07:17 BP 95/69 09/29/23 07:17 Pulse Ox 89 L 09/29/23 07:17 FiO2 Intake & Output 09/28/23 09/29/23 09/29/23 18:59 06:59 18:59 Intake Total 1852 Output Total 800 895 Balance 1052 -895 Weight 80.2 kg Intake: IV 1552 Oral 300 Output: Drainage 245 Back 245 Urine 400 650 Estimated Blood Loss 400 Other: Voiding Method Indwelling Catheter - Exam Physical Examination General: The patient is awake and alert, in no acute distress Skin: Skin is warm and dry with no obvious rashes or lesions. Surgical incision to the lumbar spine, dressing is clean dry and intact. Hemovac is present with 245 mL output overnight. Eye: Pupils are equal, round and reactive to light, extra-ocular movements are intact; there is normal conjunctiva bilaterally. Neck: The neck is supple, there is no tenderness and ROM intact. Cardiovascular: There is a regular rate and rhythm. No murmur, rub or gallop is appreciated. Respiratory: Lungs are clear to auscultation, respirations are non-labored, breath sounds are equal. Gastrointestinal: Soft, non-distended, non-tender abdomen. Back: There is no tenderness to palpation in the midline, paralumbar, parathoracic or buttocks region. There is no obvious deformity . Musculoskeletal: ROM limited secondary to pain and stiffness from surgical procedure. Muscle strength in all major muscle groups of bilateral upper extremities 5/5, bilateral lower extremities 4/5. Neurological: CN 2-12 intact. There are no obvious motor or sensory deficits. Movement and coordination equal and intact. Sensory exam to light touch intact C5-T1 and intact from L2-S1. Reflexes 2/4 in bilateral upper and lower extremities. Negative Hoffmans, babinski, and clonus signs. Psychiatric: Cooperative, appropriate mood & affect, normal judgment. - Labs CBC & Chem 7: 09/28/23 08:15 Labs: Abnormal Lab Results - Last 24 Hours (Table) 09/28/23 09/28/23 09/28/23 Range/Units 08:15 15:53 16:48 WBC 3.3 L (3.8-10.6) k/uL RBC 3.22 L (4.30-5.90) m/uL Hgb 11.2 L (13.0-17.5) gm/dL Hct 33.6 L (39.0-53.0) % MCV 104.6 H (80.0-100.0) fL Plt Count 105 L (150-450) k/uL Lymphocytes # 0.5 L (1.0-4.8) k/uL POC Glucose (mg/dL) 118 H 118 H (70-110) mg/dL 09/28/23 Range/Units 20:29 WBC (3.8-10.6) k/uL RBC (4.30-5.90) m/uL Hgb (13.0-17.5) gm/dL Hct (39.0-53.0) % MCV (80.0-100.0) fL Plt Count (150-450) k/uL Lymphocytes # (1.0-4.8) k/uL POC Glucose (mg/dL) 185 H (70-110) mg/dL Assessment and Plan Assessment: Postop day 1: L1-L2 open treatment of fracture with T12-L4 stabilization 1. Lumbar spondylosis with stenosis 2.L1-2 wedge compression fractures 3. Grade 1 retrolisthesis L3 on L4 4. Mechanical low back pain Plan: -Appreciate safety and health consultant and team management. -Activity: Ambulate QID, OOB all meals, up and about, limit lifting bending twisting to less than 5 lbs. Use walker or cane if needed for stability. -Daily PT/OT, increase ambulation strength and balance. -Brace when up and about, not needed in bed or chair -Prescription for TLSO brace has been placed in chart -Pain control: Adequate at this time -Meds: reviewed -GI ppx: senna, Miralax -DVT PPX: OK to restart Heparin tonight -Hygiene: Shower today. Maintain dressing clean and dry. Meticulous cleaning after BMs away from the incision site -Drains: Maintain for now. Continue to monitor and record output q shift. -Encourage IS 10x/hr -Dispo: Anticipate discharge to subacute rehab within the next 48 hours *I reviewed and discussed this case with my attending Dr. Lomeli, whom has reviewed this chart and films and is in agreement with assessment and plan of care as outlined above. I have personally seen and examined the patient, performed the documentation and the assessment and plan as written. Number of minutes spent on the visit: 20m.
[2023-09-29] MEDS: CYANOCOBALAMIN 500 MCG TAB PO SCH (10:45)
[2023-09-29] MEDS: TAMSULOSIN 0.4 MG CAP.ER.24H PO SCH (10:45)
[2023-09-29] MEDS: CHOLECALCIFEROL 25 MCG (1000 IU) TABLET PO SCH (10:45)
[2023-09-29] MEDS: LACTOBACILLUS ACIDOPHILUS/PECT 1 EACH CAPSULE PO SCH (10:46)
[2023-09-29] MEDS: SENNOSIDES-DOCUSATE SODIUM 1 EACH TAB PO SCH (10:46)
[2023-09-29 11:36] LABS: BUN/Creat Ratio 22.33 Ratio (12.00-20.00); Blood Urea Nitrogen 20.1 mg/dL (9.0-27.0); Calcium 8.4 mg/dL (8.7-10.3); Carbon Dioxide 25.5 mmol/L (21.6-31.8); Chloride 106 mmol/L (96-109); Glucose 98 mg/dL (70-110); Potassium 4.3 mmol/L (3.5-5.5); Sodium 139 mmol/L (135-145)
[2023-09-29 11:45] LABS: HCT 30.8 % (39.6-50.0); HGB 9.6 g/dL (13.0-17.0); MCH 33.6 pg (27.0-32.0); MCHC 31.2 g/dL (32.0-37.0); MCV 107.7 FL (80.0-97.0); Mean Platelet Volume 10.4 FL (9.5-12.2); NRBC Per 100 WBC 0 X 10*3/uL (0.00-0.01); Platelet Count 112 X 10*3/uL (140-440); RBC 2.86 X 10*6/uL (4.40-5.60); RDW 14.7 % (11.5-14.5); WBC 4.87 X 10*3/uL (4.50-10.00)
--- NOTE | 2023-09-29 12:18 | P.CONS ---
History of Present Illness - Reason for Consult Consult date: 09/29/23 Medical management - History of Present Illness History of present illness; patient 78-year-old gentleman with past medical history significant for esophageal cancer, diabetes, COPD, hypertension, hyperlipidemia, BPH, heart failure, atrial fibrillation anticoagualted with coumadin who presented to hospital for elective surgery with orthopedic spine. Patient has been following up outpatient with orthopedics for his low back pain. MRI lumbar spine showed Remote anterior wedge compression deformity of the of t he L2 vertebral body with approximately 90% height loss and 6 mm of retropulsion. Orthopedic spine discussed with patient regarding surgical option and plan was patient to undergo L1-L2 open treatment of fracture with T12-L4 stabilization which patient underwent on 09/28. Postoperatively internal medicine team was consulted for medical management REVIEW OF SYSTEMS: CONSTITUTIONAL: No fever, no malaise, no fatigue. HEENT: No recent visual problems or hearing problems. Denied any sore throat. CARDIOVASCULAR: No chest pain, orthopnea, PND, no palpitations, no syncope. PULMONARY: No shortness of breath, no cough, no hemoptysis. GASTROINTESTINAL: No diarrhea, no nausea, no vomiting, no abdominal pain. NEUROLOGICAL: No headaches, no weakness, no numbness. HEMATOLOGICAL: Denies any bleeding or petechiae. GENITOURINARY: Denies any burning micturition, frequency, or urgency. MUSCULOSKELETAL/RHEUMATOLOGICAL: Complaining of back pain ENDOCRINE: Denies any polyuria or polydipsia. The rest of the 14-point review of systems is negative. PHYSICAL EXAMINATION: GENERAL: The patient is alert and oriented x3, not in any acute distress. Well developed, well nourished. HEENT: Pupils are round and equally reacting to light. EOMI. No scleral icterus. No conjunctival pallor. Normocephalic, atraumatic. No pharyngeal erythema. No thyromegaly. CARDIOVASCULAR: S1 and S2 present. No murmurs, rubs, or gallops. PULMONARY: Chest is clear to auscultation, no wheezing or crackles. ABDOMEN: Soft, nontender, nondistended, normoactive bowel sounds. No palpable organomegaly. MUSCULOSKELETAL: No joint swelling or deformity. EXTREMITIES: No cyanosis, clubbing, or pedal edema. NEUROLOGICAL: Gross neurological examination did not reveal any focal deficits. SKIN: Lumbar area surgical incision seen, drain in place Assessment and plan Lumbar spondylosis with stenosis L1-2 wedge compression fractures Grade 1 retrolisthesis L3 on L4 Mechanical low back pain History of diastolic heart failure with aortic stenosis and mild to moderate aortic regurgitation, EF 50-55%. Valvular atrial fibrillation on Coumadin Type 2 diabetes mellitus COPD without any acute exacerbation Hyperlipidemia hypertension Benign prostatic hypertrophy History of esophageal cancer Monitor vital signs monitor CBC Monitor CMP S/p L1-L2 open treatment of fracture with T12-L4 stabilization Continue pain management per orthopedics Continue DVT prophylaxis per orthopedics Resume aspirin Coumadin once okay with orthopedic spine PT and OT consulted Labs and medication were reviewed.. Continue same treatment. Continue with symptomatic treatment. Resume home medication. Monitor labs and vitals. DVT and GI prophylaxis. Further recommendations as per clinical course of the patient Dictation was produced using [employer] dictation software. please excuse any g rammatical, word or spelling errors. 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 "ENLARGED HEART VALVES" PER PATIENT. HX OF PROSTATE CANCER WITH SURGERY, HX OF THROAT CANCER WITH SURGERY-CHEMO AND RADIATION (2016), LOW IRON. AKHIOK History of Any Multi-Drug Resistant Organisms: None Reported Past Surgical History: Orthopedic Surgery, Prostate Surgery Additional Past Surgical History / Comment(s): RIGHT SHOULDER X2, EGD'S, COLONOSCOPIES, MICAH CATARACTS, PATIENT STATES ESOPHAGUS REMOVED AND STOMACH USED. PROSTATE SX FOR CANCER, COLONOSCOPY, EGD, Past Anesthesia/Blood Transfusion Reactions: No Reported Reaction Smoking Status: Never smoker - Past Family History Sister(s) Family Medical History: Cancer Additional Family Medical History / Comment(s): AT 13 YRS OF AGE. Medications and Allergies Home Medications Medication Instructions Recorded Confirmed Type Omeprazole 20 mg PO DAILY 05/25/18 09/28/23 History Multivitamins, Thera [Multivitamin 1 tab PO DAILY 09/26/19 09/28/23 History (formulary)] Cholecalciferol [Vitamin D3 (25 25 mcg PO DAILY 10/04/21 09/28/23 History Mcg = 1000 Iu)] Cyanocobalamin (Vitamin B-12) 1,000 mcg PO DAILY 10/04/21 09/28/23 History [Vitamin B-12] Ferrous Sulfate [Iron (65 MG 325 mg PO HS 10/04/21 09/28/23 History Elemental)] rOPINIRole HCL [Requip] 0.5 mg PO HS 07/03/22 09/28/23 History Atorvastatin [Lipitor] 40 mg PO HS 11/25/22 09/28/23 History Carboxymethylcellulose Sodium 1 drop LEFT EYE HS 11/25/22 09/28/23 History [Thera Tears] Latanoprost/Pf [Latanoprost 0.005% 1 drop RIGHT EYE HS 11/25/22 09/28/23 History Eye Drop] Tamsulosin [Flomax] 0.4 mg PO DAILY 7 Days #7 cap 12/27/22 09/28/23 Rx Sodium Bicarbonate Tab 650 mg PO BID #60 tab 01/02/23 09/28/23 Rx Aspirin EC [Ecotrin Low Dose] 81 mg PO HS 01/16/23 09/28/23 History Potassium Chloride [Klor-Con M20] 20 meq PO DAILY@0700 01/16/23 09/28/23 History Cyclobenzaprine [Flexeril] 5 mg PO HS 09/22/23 09/28/23 History Gabapentin 300 mg PO HS 09/22/23 09/28/23 History L.acidoph,Paracasei, B.lactis 1 each PO DAILY 09/22/23 09/28/23 History [Probiotic] Losartan [Cozaar] 25 mg PO HS 09/22/23 09/28/23 History Metoprolol Succinate [Metoprolol 25 mg PO HS 09/22/23 09/28/23 History Succinate ER] Pioglitazone [Actos] 15 mg PO HS 09/22/23 09/28/23 History Warfarin [Coumadin] 2.5 mg PO DIRECTED 09/22/23 09/28/23 History Allergies Allergy/AdvReac Type Severity Reaction Status Date / Time bee venom protein (honey bee) Allergy Severe Anaphylaxis Verified 09/28/23 07:19 latex Allergy Unknown Rash/Hives Verified 09/28/23 07:19 adhesive tape Allergy Unknown-Per Verified 09/28/23 07:19 Dr Dickens's office Physical Exam Vitals: Vital Signs Temp Pulse Resp BP BP Pulse Ox 09/29/23 08:47 99 09/29/23 07:17 97.9 F 78 15 95/69 89 L 09/29/23 01:42 98.3 F 83 17 100/62 96 09/28/23 21:40 112/68 09/28/23 19:15 97.8 F 77 19 95/63 94 L 09/28/23 16:13 97.6 F 98 19 142/99 98 09/28/23 15:44 83 16 144/88 96 09/28/23 15:22 111 H 16 144/93 96 09/28/23 15:00 87 16 147/83 96 09/28/23 14:00 101 H 16 153/93 95 09/28/23 13:30 92 16 136/99 94 L 09/28/23 13:00 91 16 140/80 94 L 09/28/23 12:45 95 12 142/72 93 L 09/28/23 12:30 84 12 140/80 93 L 09/28/23 12:15 100 12 139/87 93 L 09/28/23 12:00 95 12 145/73 93 L 09/28/23 11:45 89 12 140/71 97 09/28/23 11:30 97 12 132/90 97 09/28/23 11:15 89 12 130/83 97 09/28/23 11:00 92 12 137/89 97 09/28/23 10:53 97.1 F L 94 12 107/74 95 Intake and Output 09/28/23 09/29/23 09/29/23 22:59 06:59 14:59 Intake Total 300 Output Total 895 Balance 300 -895 Intake: Oral 300 Output: Drainage 245 Back 245 Urine 650 Other: Voiding Method Indwelling Catheter Weight 80.2 kg Results CBC & Chem 7: 09/29/23 05:30 09/29/23 05:30 Labs: Abnormal Lab Results - Last 24 Hours (Table) 09/28/23 09/28/23 09/28/23 Range/Units 15:53 16:48 20:29 POC Glucose (mg/dL) 118 H 118 H 185 H (70-110) mg/dL
[2023-09-29 12:21] LABS: Basophils # (A) 0.01 X 10*3/uL (0.00-0.10); Basophils % (A) 0.2 %; Eosinophils # (A) 0.03 X 10*3/uL (0.04-0.35); Eosinophils % (A) 0.6 %; Lymphocytes # (A) 0.43 X 10*3/uL (0.90-5.00); Lymphocytes % (A) 8.8 %; Macrocytosis (M) 2+; Monocytes # (A) 0.46 X 10*3/uL (0.20-1.00); Monocytes % (A) 9.4 %; Neutrophils # (A) 3.91 X 10*3/uL (1.80-7.70); Neutrophils % (A) 80.4 %
[2023-09-29] MEDS: HYDROmorphone 0.5 MG/0.5 ML SYRINGE IVP PRN (17:24)
[2023-09-30 07:30] LABS: HCT 33.4 % (39.0-53.0); HGB 10.5 gm/dL (13.0-17.5); Hypochromasia Slight; MCHC 31.6 g/dL (31.0-37.0); MCV 107.4 fL (80.0-100.0); Macrocytosis Moderate; Mean Platelet Volume 8.1; Platelet Count 107 k/uL (150-450); RBC 3.11 m/uL (4.30-5.90); RDW 13.8 % (11.5-15.5)
[2023-09-30 07:49] LABS: African American GFR (CKD) >90 (>60 ml/min/1.73 sqM); Anion Gap 2 mmol/L; Blood Urea Nitrogen 20 mg/dL (9-20); Calcium 8.7 mg/dL (8.4-10.2); Carbon Dioxide 28 mmol/L (22-30); Chloride 107 mmol/L (98-107); Glucose 100 mg/dL (74-99); Non-African American GFR(CKD) 84 (>60 ml/min/1.73 sqM); Potassium 4.3 mmol/L (3.5-5.1); Sodium 137 mmol/L (137-145)
--- NOTE | 2023-09-30 08:43 | P.PN ---
Subjective Progress Note Date: 09/30/23 Principal diagnosis: 1. Lumbar spondylosis with stenosis 2.L1-2 wedge compression fractures 3. Grade 1 retrolisthesis L3 on L4 4. Mechanical low back pain Patient seen and examined 20. Patient is sitting up in bed eating breakfast. The patient reports that he worked with physical therapy yesterday and tolerated activities well. TLSO brace should be delivered later today. Surgical incision to the lumbar spine is clean dry and intact with Hemovac present, output of 100 mL overnight. Patient reports mild intermittent numbness to the left lower extremity into the foot that has currently resolved. Explained to patient that the symptoms might come and go due to inflammation and manipulation during surgery. Patient verbalized understanding. Patient states his pain is managed on current regimen. Continue to encourage patient to work with physical therapy and to be up in chair with all meals. Utilizing incentive spirometer while awake. RN reports that patient has not had adequate output since removal of Alcaraz catheter. Bladder scans have been done without significant amount of urine and bladder. IV fluids will be ordered. Continue to monitor urine output and bladder scan when needed. Objective - Vital Signs Vital signs: Vital Signs Temp 97.8 F 09/30/23 07:25 Pulse 93 09/30/23 07:25 Resp 20 09/30/23 07:25 BP 143/92 09/30/23 07:25 Pulse Ox 92 L 09/30/23 07:25 FiO2 Intake & Output 09/29/23 09/30/23 09/30/23 18:59 06:59 18:59 Output Total 80 575 Balance -80 -575 Output: Drainage 80 100 Back 80 100 Urine 475 Straight 475 Other: Voiding Method Urinal Urinal - Exam Physical Examination General: The patient is awake and alert, in no acute distress Skin: Skin is warm and dry with no obvious rashes or lesions. Surgical incision to the lumbar spine, dressing is clean dry and intact. Hemovac is present with 100 mL output overnight. Eye: Pupils are equal, round and reactive to light, extra-ocular movements are intact; there is normal conjunctiva bilaterally. Neck: The neck is supple, there is no tenderness and ROM intact. Cardiovascular: There is a regular rate and rhythm. No murmur, rub or gallop is appreciated. Respiratory: Lungs are clear to auscultation, respirations are non-labored, breath sounds are equal. Gastrointestinal: Soft, non-distended, non-tender abdomen. Back: There is no tenderness to palpation in the midline, paralumbar, parathoracic or buttocks region. There is no obvious deformity . Musculoskeletal: ROM limited secondary to pain and stiffness from surgical procedure. Muscle strength in all major muscle groups of bilateral upper extre mities 5/5, bilateral lower extremities 4/5. Neurological: CN 2-12 intact. There are no obvious motor or sensory deficits. Movement and coordination equal and intact. Sensory exam to light touch intact C5-T1 and intact from L2-S1. Reflexes 2/4 in bilateral upper and lower extremities. Negative Hoffmans, babinski, and clonus signs. Psychiatric: Cooperative, appropriate mood & affect, normal judgment. - Labs CBC & Chem 7: 09/30/23 07:00 09/30/23 07:00 Labs: Abnormal Lab Results - Last 24 Hours (Table) 09/29/23 09/29/23 09/30/23 Range/Units 05:30 05:30 07:00 RBC 2.86 L 3.11 L (4.40-5.60) X 10*6/uL Hgb 9.6 L 10.5 L (13.0-17.0) g/dL Hct 30.8 L 33.4 L (39.6-50.0) % MCV 107.7 H 107.4 H (80.0-97.0) FL MCH 33.6 H (27.0-32.0) pg MCHC 31.2 L (32.0-37.0) g/dL RDW 14.7 H (11.5-14.5) % Plt Count 112 L 107 L (140-440) X 10*3/uL Lymphocytes # 0.43 L (0.90-5.00) X 10*3/uL Eosinophils # 0.03 L (0.04-0.35) X 10*3/uL Macrocytosis (manual) 2+ A BUN/Creatinine Ratio 22.33 H (12.00-20.00) Ratio Glucose (74-99) mg/dL Calcium 8.4 L (8.7-10.3) mg/dL 09/30/23 Range/Units 07:00 RBC (4.40-5.60) X 10*6/uL Hgb (13.0-17.0) g/dL Hct (39.6-50.0) % MCV (80.0-97.0) FL MCH (27.0-32.0) pg MCHC (32.0-37.0) g/dL RDW (11.5-14.5) % Plt Count (140-440) X 10*3/uL Lymphocytes # (0.90-5.00) X 10*3/uL Eosinophils # (0.04-0.35) X 10*3/uL Macrocytosis (manual) BUN/Creatinine Ratio (12.00-20.00) Ratio Glucose 100 H (74-99) mg/dL Calcium (8.7-10.3) mg/dL Assessment and Plan Assessment: Postop day 2: L1-L2 open treatment of fracture with T12-L4 stabilization 1. Lumbar spondylosis with stenosis 2.L1-2 wedge compression fractures 3. Grade 1 retrolisthesis L3 on L4 4. Mechanical low back pain Plan: -Appreciate compensation consultant and team management. -Activity: Ambulate QID, OOB all meals, up and about, limit lifting bending twisting to less than 5 lbs. Use walker or cane if needed for stability. -Daily PT/OT, increase ambulation strength and balance. -Brace when up and about, not needed in bed or chair -TLSO brace to be delivered later today. -Pain control: Adequate at this time -Meds: reviewed -GI ppx: senna, Miralax -DVT PPX: Heparin -Hygiene: Shower today. Maintain dressing clean and dry. Meticulous cleaning after BMs away from the incision site -Drains: Maintain for now. Continue to monitor and record output q shift. -Encourage IS 10x/hr -Dispo: Anticipate discharge to subacute rehab within the next 24 hours *I reviewed and discussed this case with my attending Dr. Lomeli, whom has reviewed this chart and films and is in agreement with assessment and plan of care as outlined above. I have personally seen and examined the patient, performed the documentation and the assessment and plan as written. Number of minutes spent on the visit: 20m.
[2023-09-30] MEDS: SODIUM CHLORIDE 0.9% 1,000 ML IV SCH (08:57)
[2023-09-30] MEDS: HEPARIN SODIUM,PORCINE 5,000 UNIT/ML 1 ML VIAL SQ SCH (09:33)
--- NOTE | 2023-09-30 11:39 | XR ---
EXAMINATION TYPE: XR chest 1V portable DATE OF EXAM: 09/30/2023 COMPARISON: NONE HISTORY: Shortness of breath. TECHNIQUE: Single frontal view of the chest is obtained. IMPRESSION: There is patchy parenchymal changes in the right mid to lower lung which is suspicious for pneumonia. The cardiac silhouette is moderately to significantly enlarged and the pulmonary vessels are within n ormal limits. There are also likely small bilateral pleural effusions.
--- NOTE | 2023-09-30 13:25 | P.PN ---
Subjective Progress Note Date: 09/30/23 patient 78-year-old gentleman with past medical history significant for esophageal cancer, diabetes, COPD, hypertension, hyperlipidemia, BPH, heart failure, atrial fibrillation anticoagualted with coumadin who presented to hospital for elective surgery with orthopedic spine. Patient has been following up outpatient with orthopedics for his low back pain. MRI lumbar spine showed Remote anterior wedge compression deformity of the of the L2 vertebral body with approximately 90% height loss and 6 mm of retropulsion. Orthopedic spine discussed with patient regarding surgical option and plan was patient to undergo L1-L2 open treatment of fracture with T12-L4 stabilization which patient underwent on 09/28. Postoperatively internal medicine team was consulted for medical management 09/30. Patient seen and examined. Patient having conversational dyspnea. Denies chest pain. Patient has been using I-S. Patient had low urine output REVIEW OF SYSTEMS: CONSTITUTIONAL: No fever, no malaise,. CARDIOVASCULAR: no palpitations, no syncope. PULMONARY: no cough, GASTROINTESTINAL: No diarrhea, no nausea, no vomiting, no abdominal pain. NEUROLOGICAL: No headaches, no weakness, PHYSICAL EXAMINATION: GENERAL: The patient is alert and oriented x3, not in any acute distress. Well developed, well nourished. HEENT: Pupils are round and equally reacting to light. EOMI. No scleral icterus. No conjunctival pallor. Normocephalic, atraumatic. No pharyngeal erythema. No th yromegaly. CARDIOVASCULAR: S1 and S2 present. No murmurs, rubs, or gallops. PULMONARY: Diminished breath sounds at the bases bilaterally, crackles audible ABDOMEN: Soft, nontender, nondistended, normoactive bowel sounds. No palpable organomegaly. MUSCULOSKELETAL: No joint swelling or deformity. EXTREMITIES: No cyanosis, clubbing, or pedal edema. NEUROLOGICAL: Gross neurological examination did not reveal any focal deficits. SKIN: Lumbar area surgical incision seen seen, drain in place Assessment and plan Lumbar spondylosis with stenosis L1-2 wedge compression fractures Grade 1 retrolisthesis L3 on L4 Mechanical low back pain History of diastolic heart failure with aortic stenosis and mild to moderate aortic regurgitation, EF 50-55%. Valvular atrial fibrillation on Coumadin Type 2 diabetes mellitus COPD without any acute exacerbation Hyperlipidemia hypertension Benign prostatic hypertrophy History of esophageal cancer Monitor vital signs monitor CBC Monitor CMP S/p L1-L2 open treatment of fracture with T12-L4 stabilization Courage use of I-S Aggressive bronchopulmonary hygiene Ordered stat chest x-ray Ordered Pro-Saul and proBNP. Judicious use of IV fluid Continue pain management per orthopedics Continue DVT prophylaxis per orthopedics Resume aspirin Coumadin once okay with orthopedic spine PT and OT following Labs and medication were reviewed.. Continue same treatment. Continue with symptomatic treatment. Resume home medication. Monitor labs and vitals. DVT and GI prophylaxis. Further recommendations as per clinical course of the patient Dictation was produced using [employer] dictation software. please excuse any grammatical, word or spelling errors. Objective - Vital Signs Vital signs: Vital Signs Temp 97.8 F 09/30/23 07:25 Pulse 93 09/30/23 07:25 Resp 20 09/30/23 09:27 BP 143/92 09/30/23 07:25 Pulse Ox 92 L 09/30/23 07:25 FiO2 Intake & Output 09/29/23 09/30/23 09/30/23 18:59 06:59 18:59 Output Total 80 575 1300 Balance -80 -575 -1300 Output: Drainage 80 100 Back 80 100 Urine 475 1300 Straight 475 Other: Voiding Method Urinal Urinal Urinal # Voids 0 # Bowel Movements 0 - Labs CBC & Chem 7: 09/30/23 07:00 09/30/23 07:00 Labs: Abnormal Lab Results - Last 24 Hours (Table) 09/30/23 09/30/23 Range/Units 07:00 07:00 RBC 3.11 L (4.30-5.90) m/uL Hgb 10.5 L (13.0-17.5) gm/dL Hct 33.4 L (39.0-53.0) % MCV 107.4 H (80.0-100.0) fL Plt Count 107 L (150-450) k/uL Glucose 100 H (74-99) mg/dL
--- NOTE | 2023-10-01 09:32 | P.PN ---
Subjective Progress Note Date: 10/01/23 Principal diagnosis: 1. Lumbar spondylosis with stenosis 2.L1-2 wedge compression fractures 3. Grade 1 retrolisthesis L3 on L4 4. Mechanical low back pain Patient seen and examined this morning. Patient is resting comfortable in bed. He reports that he has been up to the chair multiple times, tolerating activity well. Patient does express that he has had shortness of breath due to his congestive heart failure he currently is on 2L O2 via nasal cannula. Surgical incision to the lumbar spine, edges are well approximated with larry intact. Hemovac drain has been removed with neurosurgical dressing applied. Patient denies any numbness or tingling to bilateral lower extremities. Alcaraz catheter has been replaced due to retention. Patient reports that he is looking forward to discharge to rehab. Patient is cleared from orthopedic standpoint for discharge when medically stable. No acute concerns. Objective - Vital Signs Vital signs: Vital Signs Temp 98.1 F 10/01/23 00:37 Pulse 88 10/01/23 00:37 Resp 20 10/01/23 00:37 BP 106/77 10/01/23 00:37 Pulse Ox 93 L 10/01/23 00:37 FiO2 Intake & Output 09/30/23 10/01/23 10/01/23 18:59 06:59 18:59 Intake Total 300 Output Total 1350 555 Balance -1050 -555 Intake: Oral 300 Output: Drainage 50 80 Back 50 80 Urine 1300 475 Other: Voiding Method Urinal Indwelling Catheter # Voids 0 # Bowel Movements 0 - Exam Physical Examination General: The patient is awake and alert, in no acute distress Skin: Skin is warm and dry with no obvious rashes or lesions. Surgical incision to the lumbar spine, edges are well approximated with larry intact. Hemovac drain has been removed and new surgical dressing applied. Eye: Pupils are equal, round and reactive to light, extra-ocular movements are intact; there is normal conjunctiva bilaterally. Neck: The neck is supple, there is no tenderness and ROM intact. Cardiovascular: There is a regular rate and rhythm. No murmur, rub or gallop is appreciated. Respiratory: Lungs are clear to auscultation, respirations are non-labored, breath sounds are equal. Gastrointestinal: Soft, non-distended, non-tender abdomen. Back: There is no tenderness to palpation in the midline, paralumbar, parathoracic or buttocks region. There is no obvious deformity . Musculoskeletal: ROM limited secondary to pain and stiffness from surgical procedure. Muscle strength in all major muscle groups of bilateral upper extremities 5/5, bilateral lower extremities 4/5. Neurological: CN 2-12 intact. There are no obvious motor or sensory deficits. Movement and coordination equal and intact. Sensory exam to light touch intact C5-T1 and intact from L2-S1. Reflexes 2/4 in bilateral upper and lower extremities. Negative Hoffmans, babinski, and clonus signs. Psychiatric: Cooperative, appropriate mood & affect, normal judgment. - Labs CBC & Chem 7: 09/30/23 07:00 09/30/23 07:00 Labs: Abnormal Lab Results - Last 24 Hours (Table) 09/30/23 Range/Units 07:00 Glucose 100 H (74-99) mg/dL Assessment and Plan Assessment: Postop day 3: L1-L2 open treatment of fracture with T12-L4 stabilization 1. Lumbar spondylosis with stenosis 2.L1-2 wedge compression fractures 3. Grade 1 retrolisthesis L3 on L4 4. Mechanical low back pain Plan: -Appreciate delivery consultant and team management. -Activity: Ambulate QID, OOB all meals, up and about, limit lifting bending twisting to less than 5 lbs. Use walker or cane if needed for stability. -Daily PT/OT, increase ambulation strength and balance. -Brace when up and about, not needed in bed or chair -Pain control: Adequate at this time -Meds: reviewed -GI ppx: senna, Miralax -DVT PPX: Heparin -Hygiene: Shower today. Maintain dressing clean and dry. Meticulous cleaning after BMs away from the incision site -Encourage IS 10x/hr -Dispo: Patient is cleared from an orthopedic standpoint for discharge to subacute rehab when medically stable *I reviewed and discussed this case with my attending Dr. Lomeli, whom has reviewed this chart and films and is in agreement with assessment and plan of care as outlined above. I have personally seen and examined the patient, performed the documentation and the assessment and plan as written. Number of minutes spent on the visit: 20m.
--- NOTE | 2023-10-01 12:44 | P.PN ---
Subjective Progress Note Date: 10/01/23 patient 78-year-old gentleman with past medical history significant for esophageal cancer, diabetes, COPD, hypertension, hyperlipidemia, BPH, heart failure, atrial fibrillation anticoagualted with coumadin who presented to hospital for elective surgery with orthopedic spine. Patient has been following up outpatient with orthopedics for his low back pain. MRI lumbar spine showed Remote anterior wedge compression deformity of the of the L2 vertebral body with approximately 90% height loss and 6 mm of retropulsion. Orthopedic spine discussed with patient regarding surgical option and plan was patient to undergo L1-L2 open treatment of fracture with T12-L4 stabilization which patient underwent on 09/28. Postoperatively internal medicine team was consulted for medical management 09/30. Patient seen and examined. Patient having conversational dyspnea. Denies chest pain. Patient has been using I-S. Patient had low urine output 10/01. Patient seen and examined. Currently on 2 L of oxygen. proBNP was elevated, will order 1 dose of Lasix 20 mg. REVIEW OF SYSTEMS: CONSTITUTIONAL: No fever, no malaise,. CARDIOVASCULAR: no palpitations, no syncope. PULMONARY: no cough, GASTROINTESTINAL: No diarrhea, no nausea, no vomiting, no abdominal pain. NEUROLOGICAL: No headaches, no weakness, PHYSICAL EXAMINATION: GENERAL: The patient is alert and oriented x3, not in any acute distress. Well developed, well nourished. HEENT: Pupils are round and equally reacting to light. EOMI. No scleral icterus. No conjunctival pallor. Normocephalic, atraumatic. No pharyngeal erythema. No thyromegaly. CARDIOVASCULAR: S1 and S2 present. No murmurs, rubs, or gallops. PULMONARY: Diminished breath sounds at the bases bilaterally, crackles audible ABDOMEN: Soft, nontender, nondistended, normoactive bowel sounds. No palpable organomegaly. MUSCULOSKELETAL: No joint swelling or deformity. EXTREMITIES: No cyanosis, clubbing, or pedal edema. NEUROLOGICAL: Gross neurological examination did not reveal any focal deficits. SKIN: Lumbar area surgical incision seen Assessment and plan Lumbar spondylosis with stenosis L1-2 wedge compression fractures Grade 1 retrolisthesis L3 on L4 Mechanical low back pain History of diastolic heart failure with aortic stenosis and mild to moderate aortic regurgitation, EF 50-55%. Valvular atrial fibrillation on Coumadin Type 2 diabetes mellitus COPD without any acute exacerbation Hyperlipidemia hypertension Benign prostatic hypertrophy History of esophageal cancer Monitor vital signs monitor CBC Monitor CMP S/p L1-L2 open treatment of fracture with T12-L4 stabilization Courage use of I-S Aggressive bronchopulmonary hygiene Results of chest x-ray and proBNP noted Will give 1 dose of Lasix 20 mg Continue pain management per orthopedics Continue DVT prophylaxis per orthopedics Aspirin Coumadin resumed after clearance from orthopedic spine PT and OT following Labs and medication were reviewed.. Continue same treatment. Continue with symptomatic treatment. Resume home medication. Monitor labs and vitals. DVT and GI prophylaxis. Further recommendations as per clinical course of the patient Dictation was produced using [employer] dictation software. please excuse any grammatical, word or spelling errors. Objective - Vital Signs Vital signs: Vital Signs Temp 98.6 F 10/01/23 06:54 Pulse 90 10/01/23 06:54 Resp 19 10/01/23 06:54 BP 138/90 10/01/23 06:54 Pulse Ox 98 10/01/23 06:54 FiO2 Intake & Output 09/30/23 10/01/23 10/01/23 18:59 06:59 18:59 Intake Total 300 Output Total 1350 555 Balance -1050 -555 Intake: Oral 300 Output: Drainage 50 80 Back 50 80 Urine 1300 475 Other: Voiding Method Urinal Indwelling Catheter # Voids 0 # Bowel Movements 0 - Labs CBC & Chem 7: 09/30/23 07:00 09/30/23 07:00
[2023-10-01] MEDS: FUROSEMIDE 10 MG/ML 2 ML VIAL IV STA (12:55)
[2023-10-01 15:24] LABS: INR 1.2 (<1.2); Prothrombin Time 12.8 sec (10.0-12.5)
[2023-10-01] MEDS: WARFARIN 7.5 MG TAB PO ONE (17:43)
[2023-10-01] MEDS ORDERED: WARFARIN 2.5 MG TAB PO SCH (18:00)
[2023-10-01] MEDS: ASPIRIN 81 MG PO SCH (21:41)
[2023-10-01] MEDS: HYDROcodone/APAP 5-325MG 1 EACH TAB PO PRN (21:41)
--- NOTE | 2023-10-01 21:41 | CT ---
EXAMINATION TYPE: CT thor lumbar spine wo con DATE OF EXAM: 09/28/2023 COMPARISON: 06/12/2023 HISTORY: s/p L1-L2 ORIF with T11-L4 stabilization CT DLP: 2791.6 mGycm Automated exposure control for dose reduction was used. Contrast: None Technique: Axial images 3 mm thick sections. Reconstructed images in the coronal and sagittal planes. FINDINGS: Small bilateral pleural effusions are noted. Thoracic spine: Upper thoracic spine appears unremarkable without acute fracture spinal canal stenosi s or significant disc changes. T12-L4 pedicle screws with the exception of the compression deformity at L2. Cement is present within T12 and L4 vertebral bodies. There is compression of L2 with right paracentral posterior wall displacement measuring 0.9 cm. Lami nectomy has been performed in this area is decompressed without stenosis. There is loss of the L1-2 disc space. Remaining lower lumbar spine disc levels have degenerative membreno ges. Postsurgical soft tissue changes are evident. IMPRESSION: 1. STATUS POST FIXATION OF AN L2 FRACTURE WITH POSTERIOR WALL DISPLACEMENT. LAMINECTOMY HAS BEEN PERF ORMED AND NO SPINAL CANAL STENOSIS IS EVIDENT.
[2023-10-02 02:49] VITALS: PULSE 94
--- NOTE | 2023-10-02 07:35 | P.PN ---
Subjective Progress Note Date: 10/02/23 Principal diagnosis: 1. Lumbar spondylosis with stenosis 2.L1-2 wedge compression fractures 3. Grade 1 retrolisthesis L3 on L4 4. Mechanical low back pain Patient seen and examined this morning. Patient is resting comfortable in bed. Surgical dressing is CDI. Awaiting delivery of TLSO brace. Patient is cleared from orthopedic standpoint for discharge when medically stable. No acute concerns. Objective - Vital Signs Vital signs: Vital Signs Temp 99.6 F 10/02/23 01:30 Pulse 94 10/02/23 01:30 Resp 18 10/02/23 01:30 BP 110/66 10/02/23 01:30 Pulse Ox 91 L 10/02/23 01:30 FiO2 Intake & Output 10/01/23 10/02/23 10/02/23 18:59 06:59 18:59 Intake Total 118 Output Total 800 1000 Balance -682 -1000 Intake: Oral 118 Output: Urine 800 1000 Other: Voiding Method Indwelling Catheter # Voids 1 - Exam Physical Examination General: The patient is awake and alert, in no acute distress Skin: Skin is warm and dry with no obvious rashes or lesions. Surgical incision to the lumbar spine, dressing CDI. Eye: Pupils are equal, round and reactive to light, extra-ocular movements are intact; there is normal conjunctiva bilaterally. Neck: The neck is supple, there is no tenderness and ROM intact. Cardiovascular: There is a regular rate and rhythm. No murmur, rub or gallop is appreciated. Respiratory: Lungs are clear to auscultation, respirations are non-labored, breath sounds are equal. Gastrointestinal: Soft, non-distended, non-tender abdomen. Back: There is no tenderness to palpation in the midline, paralumbar, parathoracic or buttocks region. There is no obvious deformity . Musculoskeletal: ROM limited secondary to pain and stiffness from surgical procedure. Muscle strength in all major muscle groups of bilateral upper extremities 5/5, bilateral lower extremities 4/5. Neurological: CN 2-12 intact. There are no obvious motor or sensory deficits. Movement and coordination equal and intact. Sensory exam to light touch intact C5-T1 and intact from L2-S1. Reflexes 2/4 in bilateral upper and lower extremities. Negative Hoffmans, babinski, and clonus signs. Psychiatric: Cooperative, appropriate mood & affect, normal judgment. - Labs CBC & Chem 7: 09/30/23 07:00 09/30/23 07:00 Labs: Abnormal Lab Results - Last 24 Hours (Table) 10/01/23 Range/Units 14:55 PT 12.8 H (10.0-12.5) sec INR 1.2 H (<1.2) Assessment and Plan Assessment: Postop day 4: L1-L2 open treatment of fracture with T12-L4 stabilization 1. Lumbar spondylosis with stenosis 2.L1-2 wedge compression fractures 3. Grade 1 retrolisthesis L3 on L4 4. Mechanical low back pain Plan: -Appreciate industrial methods consultant and team management. -Activity: Ambulate QID, OOB all meals, up and about, limit lifting bending twisting to less than 5 lbs. Use walker or cane if needed for stability. -Daily PT/OT, increase ambulation strength and balance. -Brace when up and about, not needed in bed or chair -Awaiting delivery of TLSO brace -Pain control: Adequate at this time -Meds: reviewed -GI ppx: senna, Miralax -DVT PPX: Heparin -Hygiene: Shower today. Maintain dressing clean and dry. Meticulous cleaning after BMs away from the incision site -Encourage IS 10x/hr -Dispo: Patient is cleared from an orthopedic standpoint for discharge to subacute rehab when medically stable *I reviewed and discussed this case with my attending Dr. Lomeli, whom has reviewed this chart and films and is in agreement with assessment and plan of care as outlined above. I have personally seen and examined the patient, performed the documentation and the assessment and plan as written. Number of minutes spent on the visit: 20m.
[2023-10-02 07:59] LABS: INR 1.1 (<1.2); Prothrombin Time 11.7 sec (10.0-12.5)
--- NOTE | 2023-10-02 12:24 | P.DS ---
Providers Date of admission: 09/28/23 05:46 Expected date of discharge: 10/02/23 Attending physician: Milo Lomeli DO Consults: 09/28/23 10:53 Consult Physician Routine Consulting Provider: Obed Ba Reason/Comments: Medical Management s/p L1-L2 ORIF with T11-L4 stabilization Do you want consulting provider notified?: Yes Primary care physician: Ozzy Blackwood MD Hospital Course: Hospital Course: The patient was evaluated preoperatively and found to have the diagnosis of L1- L2 compression fracture with stenosis. They underwent appropriate preoperative care and were willing to undergo the intended procedure. They underwent a successful L1-L2 open treatment of fracture with T12-L4 stabilization were recovered appropriately and sent to the floor. While on the floor they worked with physical therapy, occupational therapy and nursing to enhance their recovery experience. Their pain was well controlled through their stay and they were started on appropriate medications, DVT ppx modalities, activity and dietary needs. Daily labs were monitored closely, and transfusions were only used when necessary. Medicine as well as other consulting services have made their input and have helped with our team approach and multidisciplinary care. PT milestones have been met and passed and they have made the recommendation of SERJIO for this patient and treating providers agree with this care path. The patient will be discharged home with appropriate medications, instructions and follow-up information and in stable condition. Patient Condition at Discharge: Good Plan - Discharge Summary Discharge Rx Participant: Yes New Discharge Prescriptions: New cefaDROXiL [Duricef] 500 mg PO Q12HR #10 cap Cyclobenzaprine [Flexeril] 5 mg PO TID PRN #30 tablet PRN Reason: Muscle Spasm Gabapentin 300 mg PO TID #90 cap HYDROcodone/APAP 10-325MG [Ookala 10-325] 1 tab PO Q4-6H PRN #40 tab PRN Reason: Pain Sennosides/Docusate Sodium [Senna Plus 8.6-50 mg Softgel] 1 each PO DAILY PRN #20 capsule PRN Reason: Constipation No Action Omeprazole 20 mg PO DAILY Multivitamins, Thera [Multivitamin (formulary)] 1 tab PO DAILY Cyanocobalamin (Vitamin B-12) [Vitamin B-12] 1,000 mcg PO DAILY Sodium Bicarbonate Tab 650 mg PO BID #60 tab Potassium Chloride [Klor-Con M20] 20 meq PO DAILY@0700 Cyclobenzaprine [Flexeril] 5 mg PO HS Gabapentin 300 mg PO HS Metoprolol Succinate [Metoprolol Succinate ER] 25 mg PO DAILY Warfarin [Coumadin] 7.5 mg PO SUTUTH@2100 Cholecalciferol [Vitamin D3 (25 Mcg = 1000 Iu)] 25 mcg PO DAILY rOPINIRole HCL [Requip] 0.5 mg PO HS Latanoprost/Pf [Latanoprost 0.005% Eye Drop] 1 drop RIGHT EYE HS Carboxymethylcellulose Sodium [Thera Tears] 1 drop LEFT EYE HS Atorvastatin [Lipitor] 40 mg PO HS Tamsulosin [Flomax] 0.4 mg PO DAILY 7 Days #7 cap Aspirin EC [Ecotrin Low Dose] 81 mg PO HS L.acidoph,Paracasei, B.lactis [Probiotic] 1 each PO DAILY Losartan [Cozaar] 25 mg PO HS Pioglitazone [Actos] 15 mg PO HS Warfarin [Coumadin] 5 mg PO MOWEFRSA@2100 Discharge Medication List Omeprazole 20 mg PO DAILY 05/25/18 [History] Multivitamins, Thera [Multivitamin (formulary)] 1 tab PO DAILY 09/26/19 [History] Cholecalciferol [Vitamin D3 (25 Mcg = 1000 Iu)] 25 mcg PO DAILY 10/04/21 [History] Cyanocobalamin (Vitamin B-12) [Vitamin B-12] 1,000 mcg PO DAILY 10/04/21 [History] rOPINIRole HCL [Requip] 0.5 mg PO HS 07/03/22 [History] Atorvastatin [Lipitor] 40 mg PO HS 11/25/22 [History] Carboxymethylcellulose Sodium [Thera Tears] 1 drop LEFT EYE HS 11/25/22 [History] Latanoprost/Pf [Latanoprost 0.005% Eye Drop] 1 drop RIGHT EYE HS 11/25/22 [History] Tamsulosin [Flomax] 0.4 mg PO DAILY 7 Days #7 cap 12/27/22 [Rx] Sodium Bicarbonate Tab 650 mg PO BID #60 tab 01/02/23 [Rx] Aspirin EC [Ecotrin Low Dose] 81 mg PO HS 01/16/23 [History] Potassium Chloride [Klor-Con M20] 20 meq PO DAILY@0700 01/16/23 [History] Cyclobenzaprine [Flexeril] 5 mg PO HS 09/22/23 [History] Gabapentin 300 mg PO HS 09/22/23 [History] L.acidoph,Paracasei, B.lactis [Probiotic] 1 each PO DAILY 09/22/23 [History] Losartan [Cozaar] 25 mg PO HS 09/22/23 [History] Metoprolol Succinate [Metoprolol Succinate ER] 25 mg PO DAILY 09/22/23 [History] Pioglitazone [Actos] 15 mg PO HS 09/22/23 [History] Warfarin [Coumadin] 7.5 mg PO SUTUTH@209909/22/23 [History] Cyclobenzaprine [Flexeril] 5 mg PO TID PRN #30 tablet 10/01/23 [Rx] Gabapentin 300 mg PO TID #90 cap 10/01/23 [Rx] HYDROcodone/APAP 10-325MG [Ookala 10-325] 1 tab PO Q4-6H PRN #40 tab 10/01/23 [Rx] Sennosides/Docusate Sodium [Senna Plus 8.6-50 mg Softgel] 1 each PO DAILY PRN #20 capsule 10/01/23 [Rx] Warfarin [Coumadin] 5 mg PO MOWEFRSA@209910/01/23 [History] cefaDROXiL [Duricef] 500 mg PO Q12HR #10 cap 10/01/23 [Rx] Follow up Appointment(s)/Referral(s): CobyLoronna la [place], [NON-STAFF] - As Needed Jacquie Meier [NON-STAFF] - As Needed (TLSO back brace ) Patient Instructions/Handouts: Posterior Lumbar Interbody Fusion (DC) Activity/Diet/Wound Care/Special Instructions: Spine Discharge and Recovery Instructions Date of Surgery: 09/28/2023 Diagnosis: Lumbar compression fractures Procedure: L1-L2 open treatment of fracture with T11-L4 stabilization Medications: See medication list All medication refills should be obtained through your primary care doctor or your clinic spine surgeon. Please discuss prescription refills at your follow up appointment. Do not call the hospital for medication refills. Activity: Encourage ambulation with assist of walker, Up and about 6-8x daily PT/OT daily work on balance, strength and mobility Up in chair with all meals Shower daily Brace: Use brace when up and about, do not wear in bed or shower Dressing: Leave your dressing in place for a total of 3 days post operatively. Then you may remove your dressing and leave open to air. Keep the area clean and if not able to keep area clean, then cover with sterile gauze and tape. Showering: You may shower 3 days after your procedure allowing soap and water to run over incision. Do not scrub. Do not soak. Blot dry. Follow up: Please confirm a follow up appointment with your surgeon 2 weeks post operatively. Please make an appointment to follow up with your PCP in 1-2 weeks after surgery for evaluation 3 phase, 3-week plan POST OP WEEKS 1-3 1. Lifting/carrying/pushing/pulling limited to less than 5 pounds. 2. Do not sit for longer than 15 minutes at one time. Get up and walk around. Prolonged sitting is NOT advised. If you lay down, see if you can tolerate laying down on you front (belly side) 3. Walk for periods of 15 minutes = 1 mile but no longer; do it multiple times times each day. 4. Ice your low back after activity. POST OP WEEKS 3-6 1. Lifting limited to less than 20 pounds. 2. Do not sit for longer than 30 minutes at a time. Frequently change positions. Use a sit-to stand workstation or take frequent breaks from sitting if you have returned to work. 3. Walk for 30 minutes each day. If possible, do these three or more times a day POST OP WEEKS 6+ At your 6-week appointment we will give you a physical therapy referral to focus on a core stabilization and strengthening program. You should also work on leg & buttock strengthening, hamstring & quadriceps stretching, and continue a low impact aerobic activity program such as swimming, walking, or riding a stationary bicycle. During the initial 6 weeks after your surgery, you are at the highest risk of re-injuring your spine. You should generally avoid BLTs (bending, lifting and twisting combination motions) and follow the above guidelines to reduce the chance of reinjury. You can anticipate post op appointments in our office at approximately 3 weeks and 6 weeks after your surgery. INCISION CARE: If your incision is not draining you do NOT need to cover it with a dressing. Keep your incision clean, dry and intact. In most cases, we apply skin glue, larry or sutures to the incision at the time of surgery. This will be like a crust or have the appearance of a scab and will fall off in time on its own. The stitches or larry need to be removed at 3 weeks post op appointment. You may begin to shower 3 days after surgery (this allows the glue to andrew well). However, please avoid scrubbing the incision site or peeling off any of the skin glue. This will ensure optimal healing of your incision. Also, during this time avoid soaking the incision area in water - this includes swimming pools, hot tubs or baths. No ointments, lotions or oils on the incision until your surgeon allows. Leave larry, sutures or glue in place. Neurological dysfunction that comes on suddenly can also be a sign of a stroke. Below some common symptoms of a stroke are listed: B - balance difficulty such as sudden onset walking or leaning to one side - NEW E - eye problem such as sudden double vision or trouble seeing on one side - NEW F - Facial weakness or numbness on one side - NEW A - Arm or leg weakness or numbness on one side - NEW S - Slurred speech or difficulty with word finding - NEW T - Time is BRAIN! Call 911 as soon as you recognize these symptoms Diet: Consume a regular diet rich in vegetables and lean protein such as chicken or fish. You should consume in a ratio of approximately 20% fats|40% carbohydrates|40%protein. Vegetables, sweet potatoes, brown rice or quinoa are examples of good carbohydrates. Chips, white bread, cookies and sweets/sugar are examples of bad carbohydrates. Limit your bad carbs, go wild with good carbs. "Life's Simple 7" Guidelines as per [place] [employer] These will help you reclaim your life after surgery and lay out helper in your recovery, keeping in mind your restrictions. (1) Get Active. Physical activity can help people lose weight, control high blood pressure and cholesterol, feel emotionally better, and sleep better. (2) Control Cholesterol. Avoid a diet high in saturated fat, trans fat, & cholesterol. Limit whole milk & cream, ice cream, butter, egg yolks, processed meats (like sausage and hot dogs), and fatty meats. Choose healthy foods that are low in saturated fat, trans fat and cholesterol which include: Fruits and vegetables, fiber rich grain products (like whole grain pasta and brown rice), lean meat such as chicken, fish, nuts, seeds, and legumes. (3) Eat Better. Eat small portions. Shop at the grocery with a list and do not stray from it. Tips for a healthy diet include: Limit sodium intake to less than 1500mg daily, avoid prepackaged, processed, and fast foods, choose a diet rich in fruits, vegetables, and whole grain, high fiber foods, and limit saturated & cholesterol in your diet. (4) Manage Blood Pressure. If you have high blood pressure, you should have a cuff at home so that you can check your blood pressure regularly. Be sure you have a good cuff. An arm one is generally better than a wrist one. Bring the cuff to a doctor's appointment to validate that the measurements that your cuff are taking are accurate. Take your blood pressure twice daily when you are sitting down and relaxing. Record the numbers in a log and bring this log with you to your doctors' appointments. (5) Lose Weight if your BMI is above 25. A healthy BMI is between 19-25. To calculate Your BMI, you may use a Standard BMI Calculator on the NIH BMI website: <www.nhlbi.nih.gov/guidelines/obesity/BMI/bmicalc.htm>. Weigh oneself daily. If you are overweight, set a goal to lose weight. A pound a week loss if needed is a good target. (6) Reduce Blood Sugar. Limit foods and liquids with "added sugars." (Added sugars include sucrose, fructose, glucose, maltose, dextrose, high fructose corn syrup, corn syrup, concentrated fruit juice and honey). (7) Stop Smoking. If you smoke, quitting smoking is one of the best things that you can do for your health. Smoking increases your risk of heart attack, stroke, and peripheral vascular disease, which is a build-up of plaque in your arteries. Please discard all the cigarettes and lighters in your house. Have a plan for what you will do when you have the urge to smoke. Direct and second- hand smoke shortens your life as well as the lives of your family, friends and others around you. For your health and the health of those around you, please consider quitting! Proper Bending Body Mechanics: Maintain a wide stance with one foot slightly in front of the other. Keep your back straight. Bend utilizing the strength in your hips and knees. Do not bend at the waist. Maintain the lifted object at your waist-level close to your body. Avoid lifting weight that causes immediately pain or pain anywhere in the body afterwards. Smoking/Nicotine If there was ever one thing that you could do to increase your overall health, decrease your risk of cardiovascular problems by about 39% the second you make the choice, it is to STOP SMOKING. Your body's most instant gratification is the second you stop smoking. We have all heard the studies, read the articles but it is true, smoking is extremely bad for your overall health, and moreover it is detrimental to your bone health. Nicotine, IN ANY FORM, kills bone cells, prevents your body from healing fractures, and significantly prolongs healing after surgery. In spine surgery specifically, it increases your risk of not healing your bones to create a fusion and increases your risk of having a revision surgery due to this up to 60%. I know it is hard. I know it feels impossible. But there are ways. Take control of your life. We are here to help you through it. And when you are ready, ask us and we can direct you to help if you desire. Use the START Plan to Quit Smoking (please visit the Helpguide.org website listed below for more information): S = Set a quit date. Choose a date within the next 2 weeks, so you have enough time to prepare without losing your motivation to quit. If you mainly smoke at work, quit on the weekend, so you have a few days to adjust to the change. T = Tell family, friends, and co-workers that you plan to quit. Let your friends and family in on your plan to quit smoking and tell them you need their support and encouragement to stop. Look for a quit nitza who wants to stop smoking as well. You can help each other get through the rough times. A = Anticipate and plan for the challenges you'll face while quitting. Most people who begin smoking again do so within the first 3 months. You can help yourself make it through by preparing ahead for common challenges, such as nicotine withdrawal and cigarette cravings. R = Remove cigarettes and other tobacco products from your home, car, and work. Throw away all your cigarettes (no emergency pack!), lighters, ashtrays, and matches. Wash your clothes and freshen up anything that smells like smoke. Shampoo your car, clean your drapes and carpet, and steam your furniture. T = Talk to your doctor about getting help to quit. Your doctor can prescribe medication to help with withdrawal and suggest other alternatives. If you can't see a doctor, you can get many products over the counter at your local pharmacy or grocery store, including the nicotine patch, nicotine lozenges, and nicotine gum. Resources for Quitting Smoking: <https://www.[place].gov/documents/[facility]/Quit_Tobacco_Resources_for_patients_313 480_7.pdf> Supplementation: Take recommended dosages of Vitamin D and Calcium to help fortify your bones and help them to heal. See your health maintenance packet for dosages and recommended levels. DVT/VTE prophylaxis: You will be given compression stockings from the hospital. Wear these daily for the first two weeks after surgery. You may take them off at night. You may be prescribed a medication to help thin your blood. Take this as directed. If you are not prescribed this medication, early and frequent ambulation has been shown to be the best prophylaxis to deep vein thrombosis and sequelae related to this event. Discharge Disposition: TRANSFER TO SNF/ECF
--- NOTE | 2023-10-02 13:31 | P.PN ---
Subjective Progress Note Date: 10/02/23 patient 78-year-old gentleman with past medical history significant for esophageal cancer, diabetes, COPD, hypertension, hyperlipidemia, BPH, heart failure, atrial fibrillation anticoagualted with coumadin who presented to hospital for elective surgery with orthopedic spine. Patient has been following up outpatient with orthopedics for his low back pain. MRI lumbar spine showed Remote anterior wedge compression deformity of the of the L2 vertebral body with approximately 90% height loss and 6 mm of retropulsion. Orthopedic spine discussed with patient regarding surgical option and plan was patient to undergo L1-L2 open treatment of fracture with T12-L4 stabilization which patient underwent on 09/28. Postoperatively internal medicine team was consulted for medical management 09/30. Patient seen and examined. Patient having conversational dyspnea. Denies chest pain. Patient has been using I-S. Patient had low urine output 10/01. Patient seen and examined. Currently on 2 L of oxygen. proBNP was elevated, will order 1 dose of Lasix 20 mg. 10/02. Patient seen and examined. States he feels much better. Shortness of breath is resolved. REVIEW OF SYSTEMS: CONSTITUTIONAL: No fever, no malaise,. CARDIOVASCULAR: no palpitations, no syncope. PULMONARY: no cough, GASTROINTESTINAL: No diarrhea, no nausea, no vomiting, no abdominal pain. NEUROLOGICAL: No headaches, no weakness, PHYSICAL EXAMINATION: GENERAL: The patient is alert and oriented x3, not in any acute distress. Well developed, well nourished. HEENT: Pupils are round and equally reacting to light. EOMI. No scleral icterus. No conjunctival pallor. Normocephalic, atraumatic. No pharyngeal erythema. No thyromegaly. CARDIOVASCULAR: S1 and S2 present. No murmurs, rubs, or gallops. PULMONARY: Diminished breath sounds at the bases bilaterally, no crackles, no wheeze ABDOMEN: Soft, nontender, nondistended, normoactive bowel sounds. No palpable organomegaly. MUSCULOSKELETAL: No joint swelling or deformity. EXTREMITIES: No cyanosis, clubbing, or pedal edema. NEUROLOGICAL: Gross neurological examination did not reveal any focal deficits. SKIN: Lumbar area surgical incision seen Assessment and plan Lumbar spondylosis with stenosis L1-2 wedge compression fractures Grade 1 retrolisthesis L3 on L4 Mechanical low back pain History of diastolic heart failure with aortic stenosis and mild to moderate aortic regurgitation, EF 50-55%. Valvular atrial fibrillation on Coumadin Type 2 diabetes mellitus COPD without any acute exacerbation Hyperlipidemia hypertension Benign prostatic hypertrophy History of esophageal cancer Monitor vital signs monitor CBC Monitor CMP S/p L1-L2 open treatment of fracture with T12-L4 stabilization Courage use of I-S Aggressive bronchopulmonary hygiene Continue pain management per orthopedics Continue DVT prophylaxis per orthopedics Continue home meds Patient medically stable for discharge Labs and medication were reviewed.. Continue same treatment. Continue with symptomatic treatment. Resume home medication. Monitor labs and vitals. DVT and GI prophylaxis. Further recommendations as per clinical course of the patient Dictation was produced using [employer] dictation software. please excuse any gram matical, word or spelling errors. Objective - Vital Signs Vital signs: Vital Signs Temp 99.6 F 10/02/23 01:30 Pulse 94 10/02/23 01:30 Resp 18 10/02/23 01:30 BP 110/66 10/02/23 01:30 Pulse Ox 91 L 10/02/23 01:30 FiO2 Intake & Output 10/01/23 10/02/23 10/02/23 18:59 06:59 18:59 Intake Total 118 Output Total 800 1000 Balance -682 -1000 Intake: Oral 118 Output: Urine 800 1000 Other: Voiding Method Indwelling Catheter # Voids 1 - Labs CBC & Chem 7: 09/30/23 07:00 09/30/23 07:00 Labs: Abnormal Lab Results - Last 24 Hours (Table) 10/01/23 Range/Units 14:55 PT 12.8 H (10.0-12.5) sec INR 1.2 H (<1.2)
[2023-10-02 14:05] VITALS: BP 115/75; RESP 17; TEMP 98.6
[2023-10-02] MEDS ORDERED: WARFARIN 3 MG TAB PO ONE (18:00)
== END 2023-10-02 16:51 | DRG 457 ==
LOC: 2ORMAIN 05:46 → 4SSUR 15:20
PROVIDERS: ADMIT Orthopaedic Surgery; ATTEND Orthopaedic Surgery
PROC: 0SG1071 Fusion of 2 or more Lumbar Vertebral Joints with Autologous Tissue Substitute, Posterior Approach, Posterior Column, Open Approach (ICD-10-PCS; 2023-09-28)
PROC: 0QS004Z Reposition Lumbar Vertebra with Internal Fixation Device, Open Approach (ICD-10-PCS; 2023-09-28)
PROC: 0RGA071 Fusion of Thoracolumbar Vertebral Joint with Autologous Tissue Substitute, Posterior Approach, Posterior Column, Open Approach (ICD-10-PCS; principal; 2023-09-28 07:30)
DX: S32.021A Stable burst fracture of second lumbar vertebra, initial encounter for closed fracture (principal); I50.32 Chronic diastolic (congestive) heart failure; M40.10 Other secondary kyphosis, site unspecified; M14.68 Charcot's joint, vertebrae; I11.0 Hypertensive heart disease with heart failure; M43.16 Spondylolisthesis, lumbar region; E78.5 Hyperlipidemia, unspecified; I48.91 Unspecified atrial fibrillation; N40.0 Benign prostatic hyperplasia without lower urinary tract symptoms; E11.9 Type 2 diabetes mellitus without complications; J44.9 Chronic obstructive pulmonary disease, unspecified; I35.2 Nonrheumatic aortic (valve) stenosis with insufficiency; K21.9 Gastro-esophageal reflux disease without esophagitis; M47.816 Spondylosis without myelopathy or radiculopathy, lumbar region; M48.061 Spinal stenosis, lumbar region without neurogenic claudication; Z79.01 Long term (current) use of anticoagulants; Z79.84 Long term (current) use of oral hypoglycemic drugs; Z79.899 Other long term (current) drug therapy; Z85.01 Personal history of malignant neoplasm of esophagus; Z85.46 Personal history of malignant neoplasm of prostate; Z85.819 Personal history of malignant neoplasm of unspecified site of lip, oral cavity, and pharynx; Z92.3 Personal history of irradiation; Z79.82 Long term (current) use of aspirin; Z91.030 Bee allergy status; Z91.040 Latex allergy status; Z91.048 Other nonmedicinal substance allergy status; Z92.21 Personal history of antineoplastic chemotherapy; Z98.890 Other specified postprocedural states
CPT/HCPCS: 71045; 72100; 72128; 72131; 80048; 83880; 84145; 85025; 85027; 85610

== ENCOUNTER → 2023-11-18 | Outpatient (CLI) | payer MEDICARE, OTHER ==
--- NOTE | 2023-11-18 21:32 | US ---
EXAMINATION TYPE: US groin LT DATE OF EXAM: 11/18/2023 COMPARISON: NONE CLINICAL INDICATION: Male, 78 years old with history of K40.91 INGUINAL HERNIA;Lt groin pain and edma TECHNIQUE: FINDINGS: Scanned area of concern. Shadowing seen at area of concern. Findings nonspecific. Additio nal workup recommended. Consider CT pelvis for additional evaluation. IMPRESSION: Nonspecific findings in the left inguinal region. Recommend CT pelvis for additional wor kup.
== END | disposition home or self-care (01) ==
LOC: RADUSWWP 09:33
PROVIDERS: ATTEND Internal Medicine
DX: K40.91 Unilateral inguinal hernia, without obstruction or gangrene, recurrent (principal)

== ENCOUNTER 2023-12-11 01:05 | Inpatient (IN) | payer MEDICARE, OTHER ==
[2023-12-11 01:18] LABS: Glucose,Whole Blood 114 mg/dL (70-110)
[2023-12-11 01:34] LABS: Basophils % (A) 1 %; Eosinophils # (A) 0.3 k/uL (0-0.7); Eosinophils % (A) 9 %; HCT 41.6 % (39.0-53.0); HGB 12.5 gm/dL (13.0-17.5); Hypochromasia Marked; Lymphocytes # (A) 0.4 k/uL (1.0-4.8); Lymphocytes % (A) 14 %; MCH 32.9 pg (25.0-35.0); MCHC 30.1 g/dL (31.0-37.0); MCV 109.2 fL (80.0-100.0); Macrocytosis Marked; Monocytes # (A) 0.3 k/uL (0-1.0); Monocytes % (A) 9 %; Neutrophils % (A) 65 %; Platelet Count 154 k/uL (150-450); RDW 14.9 % (11.5-15.5)
[2023-12-11 01:49] LABS: ALT 24 U/L (4-49); AST 43 U/L (17-59); African American GFR (CKD) >90 (>60 ml/min/1.73 sqM); Albumin 3.5 g/dL (3.5-5.0); Alkaline Phosphatase 128 U/L (38-126); Anion Gap 1 mmol/L; Blood Urea Nitrogen 23 mg/dL (9-20); Calcium 8.6 mg/dL (8.4-10.2); Carbon Dioxide 28 mmol/L (22-30); Chloride 114 mmol/L (98-107); Creatine Kinase 74 U/L (55-170); Glucose 116 mg/dL (74-99); Non-African American GFR(CKD) 83 (>60 ml/min/1.73 sqM); Sodium 143 mmol/L (137-145); Total Bilirubin 0.9 mg/dL (0.2-1.3)
[2023-12-11 01:51] LABS: Potassium 5.2 mmol/L (3.5-5.1)
[2023-12-11 01:54] LABS: INR 1.5 (<1.2); Partial Thromboplastin Time 27.7 sec (22.0-30.0); Prothrombin Time 15.9 sec (10.0-12.5)
--- NOTE | 2023-12-11 01:58 | CT ---
EXAM: CT Head Without Intravenous Contrast CLINICAL HISTORY: ITS.REASON CT Reason: Neuro deficit, acute, stroke suspected TECHNIQUE: Axial computed tomography images of the head/brain without intravenous contrast. CTDI is 48.8 mGy and DLP is 1157 mGy-cm. This CT exam was performed using one or more of the following dose reduction techniques: automated exposure control, adjustment of the mA and/or kV according to patient size, and/or use of iterative reconstruction technique. COMPARISON: No relevant prior studies available. FINDINGS: Brain: No hemorrhage or mass effect. Ventricles: No hydrocephalus. Bones/joints: Unremarkable. Soft tissues: Unremarkable. Sinuses: No air fluid level. Mastoid air cells: Clear. IMPRESSION: No acute hemorrhage, hydrocephalus, or mass effect. EXAM: CT Cervical Spine Without Intravenous Contrast CLINICAL HISTORY: ITS.REASON CT Reason: Neuro deficit, acute, stroke suspected TECHNIQUE: Axial computed tomography images of the cervical spine without intravenous contrast. CTDI is 12.1 mGy and DLP is 372.7 mGy-cm. This CT exam was performed using one or more of the following dose reduction techniques: automated exposure control, adjustment of the mA and/or kV according to patient size, and/or use of iterative reconstruction technique. COMPARISON: No relevant prior studies available. FINDINGS: Vertebrae: No acute fracture. Discs/spinal canal/neural foramina: degenerative changes. Soft tissues: No prevertebral swelling. Moderate bilateral pleural effusion. IMPRESSION: No acute fracture or subluxation. Moderate bilateral pleural effusion.
--- NOTE | 2023-12-11 02:06 | ED ---
Neuro HPI - General Chief Complaint: Neuro Symptoms/Deficit Stated Complaint: Possible Stroke Time Seen by Provider: 12/11/23 01:10 Source: patient Mode of arrival: EMS Limitations: no limitations - History of Present Illness Is the patient presenting with stroke symptoms?: Yes Last Known Well Date: 12/11/23 Last Known Well Time: 00:00 Onset/Timin -: hour(s) Initial Comments: This patient is 78-year-old man brought in for suspected stroke. The patient had gone to bed at midnight in his usual state of health. Nearly 1 hour later he was attempting to go to the bathroom. He fell getting out of bed. came and found him and noted that he was weak on the left side and that he was not speaking clearly. She called EMS who brought him directly here. The patient has history of atrial fibrillation and takes Coumadin. He denied preceding headache. Location: speech, left face, left arm, left leg History of same: No Place: home Severity: severe Quality: weak Improves With: none Worsens With: none On Anticoagulants: Yes (Coumadin) Context: sudden onset - Related Data Home Medications: Home Medications Medication Instructions Recorded Confirmed Omeprazole 20 mg PO DAILY 05/25/18 12/11/23 Multivitamins, Thera [Multivitamin 1 tab PO DAILY 09/26/19 12/11/23 (formulary)] Cholecalciferol [Vitamin D3 (25 25 mcg PO DAILY 10/04/21 12/11/23 Mcg = 1000 Iu)] Cyanocobalamin (Vitamin B-12) 1,000 mcg PO DAILY 10/04/21 12/11/23 [Vitamin B-12] rOPINIRole HCL [Requip] 0.5 mg PO HS 07/03/22 12/11/23 Carboxymethylcellulose Sodium 1 drop LEFT EYE HS 11/25/22 12/11/23 [Thera Tears] Latanoprost/Pf [Latanoprost 0.005% 1 drop RIGHT EYE HS 11/25/22 12/11/23 Eye Drop] Aspirin EC [Ecotrin Low Dose] 81 mg PO HS 01/16/23 12/11/23 Potassium Chloride [Klor-Con M20] 20 meq PO DAILY@0700 01/16/23 12/11/23 L.acidoph,Paracasei, B.lactis 1 cap PO DAILY 09/22/23 12/11/23 [Probiotic] Metoprolol Succinate [Metoprolol 25 mg PO DAILY 09/22/23 12/11/23 Succinate ER] Atorvastatin [Lipitor] 40 mg PO HS 12/11/23 12/11/23 EPINEPHrine (Auto Inject) [Epipen] 0.3 mg IM ONCE PRN 12/11/23 12/11/23 Ferrous Sulfate [Iron (65 MG 325 mg PO DAILY 12/11/23 12/11/23 Elemental)] Ondansetron Odt [Zofran ODT] 4 mg PO DAILY PRN 12/11/23 12/11/23 Pioglitazone [Actos] 15 mg PO DAILY 12/11/23 12/11/23 Sennosides/Docusate Sodium [Senna 1 cap PO DAILY PRN 12/11/23 12/11/23 Plus 8.6-50 mg Softgel] Previous Rx's Medication Instructions Recorded Tamsulosin [Flomax] 0.4 mg PO DAILY 7 Days #7 cap 12/27/22 Sodium Bicarbonate Tab 650 mg PO BID #60 tab 01/02/23 Cyclobenzaprine [Flexeril] 5 mg PO TID PRN #30 tablet 10/01/23 Acetaminophen Tab [Tylenol] 650 mg PO Q6HR PRN tab 12/16/23 Apixaban [Eliquis] 5 mg PO BID tab 12/16/23 Dapagliflozin Propanediol [Farxiga] 10 mg PO DAILY tab 12/16/23 Gabapentin 300 mg PO HS 30 Days #30 cap 12/16/23 lisinopriL [Zestril] 2.5 mg PO DAILY tab 12/16/23 Allergies/Adverse Reactions: Allergies Allergy/AdvReac Type Severity Reaction Status Date / Time bee venom protein (honey bee) Allergy Severe Anaphylaxis Verified 09/28/23 07:19 latex Allergy Unknown Rash/Hives Verified 09/28/23 07:19 adhesive tape Allergy Unknown-Per Verified 09/28/23 07:19 Dr Dickens's office Review of Systems ROS Statement: Those systems with pertinent positive or pertinent negative responses have been documented in the HPI. ROS Other: All systems not noted in ROS Statement are negative. Constitutional: Denies: fever, chills, weakness Eyes: Denies: vision change ENT: Denies: hearing loss Respiratory: Denies: cough, dyspnea Cardiovascular: Denies: chest pain, palpitations, edema Gastrointestinal: Denies: abdominal pain, vomiting, diarrhea Genitourinary: Denies: dysuria, hematuria Musculoskeletal: Denies: back pain Skin: Denies: rash Neurological: Reports: weakness. Denies: headache, numbness, paresthesias, confusion General Exam Limitations: no limitations General appearance: alert, in no apparent distress Head exam: Present: atraumatic, normocephalic Eye exam: Present: normal appearance, PERRL, EOMI. Absent: scleral icterus, conjunctival injection ENT exam: Present: normal oropharynx Neck exam: Present: normal inspection, full ROM Respiratory exam: Present: normal lung sounds bilaterally. Absent: respiratory distress, wheezes, rales, rhonchi, stridor, accessory muscle use Cardiovascular Exam: Present: normal rhythm, irregular rhythm, systolic murmur. Absent: diastolic murmur, rubs, gallop GI/Abdominal exam: Present: soft. Absent: distended, tenderness, guarding, rebound, rigid, mass Extremities exam: Present: normal inspection, normal capillary refill. Absent: pedal edema, calf tenderness Back exam: Present: normal inspection. Absent: CVA tenderness (R), CVA tenderness (L) Neurological exam: Present: alert, oriented X3, motor sensory deficit. Absent: CN II-XII intact Expanded Patient oriented to: Present: person, place, time Cranial nerves: Tongue Deviation: Abnormal Left, Facial Palsy without Forehead Movement: Abnormal Left Motor strength exam: RUE: 5, LUE: 3, RLE: 5, LLE: 2/1 Eye Response: (4) open spontaneously Motor Response: (6) obeys commands Verbal Response: (5) oriented Skin exam: Present: warm, dry, intact, normal color. Absent: rash Stroke MDM - Lab Data Result diagrams: 12/16/23 08:35 12/16/23 08:35 Lab Results 12/11/23 12/11/23 12/11/23 Range/Units 01:14 01:14 01:14 WBC 3.0 L (3.8-10.6) k/uL RBC 3.80 L (4.30-5.90) m/uL Hgb 12.5 L (13.0-17.5) gm/dL Hct 41.6 (39.0-53.0) % MCV 109.2 H (80.0-100.0) fL MCH 32.9 (25.0-35.0) pg MCHC 30.1 L (31.0-37.0) g/dL RDW 14.9 (11.5-15.5) % Plt Count 154 (150-450) k/uL MPV 8.0 Neutrophils % 65 % Lymphocytes % 14 % Monocytes % 9 % Eosinophils % 9 % Basophils % 1 % Neutrophils # 2.0 (1.3-7.7) k/uL Lymphocytes # 0.4 L (1.0-4.8) k/uL Monocytes # 0.3 (0-1.0) k/uL Eosinophils # 0.3 (0-0.7) k/uL Basophils # 0.0 (0-0.2) k/uL Manual Slide Review Performed Hypochromasia Marked Anisocytosis (manual) Present Macrocytosis Marked A PT 15.9 H (10.0-12.5) sec INR 1.5 H (<1.2) APTT 27.7 (22.0-30.0) sec Sodium 143 (137-145) mmol/L Potassium 5.2 H (3.5-5.1) mmol/L Chloride 114 H (98-107) mmol/L Carbon Dioxide 28 (22-30) mmol/L Anion Gap 1 mmol/L BUN 23 H (9-20) mg/dL Creatinine 0.89 (0.66-1.25) mg/dL Est GFR (CKD-EPI)AfAm >90 (>60 ml/min/1.73 sqM) Est GFR (CKD-EPI)NonAf 83 (>60 ml/min/1.73 sqM) Glucose 116 H (74-99) mg/dL POC Glucose (mg/dL) (70-110) mg/dL POC Glu New Product Trainer ID Calcium 8.6 (8.4-10.2) mg/dL Total Bilirubin 0.9 (0.2-1.3) mg/dL AST 43 (17-59) U/L ALT 24 (4-49) U/L Alkaline Phosphatase 128 H (38-126) U/L Creatine Kinase 74 (55-170) U/L Troponin I (0.000-0.034) ng/mL Total Protein 7.0 (6.3-8.2) g/dL Albumin 3.5 (3.5-5.0) g/dL 12/11/23 12/11/23 Range/Units 01:14 01:16 WBC (3.8-10.6) k/uL RBC (4.30-5.90) m/uL Hgb (13.0-17.5) gm/dL Hct (39.0-53.0) % MCV (80.0-100.0) fL MCH (25.0-35.0) pg MCHC (31.0-37.0) g/dL RDW (11.5-15.5) % Plt Count (150-450) k/uL MPV Neutrophils % % Lymphocytes % % Monocytes % % Eosinophils % % Basophils % % Neutrophils # (1.3-7.7) k/uL Lymphocytes # (1.0-4.8) k/uL Monocytes # (0-1.0) k/uL Eosinophils # (0-0.7) k/uL Basophils # (0-0.2) k/uL Manual Slide Review Hypochromasia Anisocytosis (manual) Macrocytosis PT (10.0-12.5) sec INR (<1.2) APTT (22.0-30.0) sec Sodium (137-145) mmol/L Potassium (3.5-5.1) mmol/L Chloride (98-107) mmol/L Carbon Dioxide (22-30) mmol/L Anion Gap mmol/L BUN (9-20) mg/dL Creatinine (0.66-1.25) mg/dL Est GFR (CKD-EPI)AfAm (>60 ml/min/1.73 sqM) Est GFR (CKD-EPI)NonAf (>60 ml/min/1.73 sqM) Glucose (74-99) mg/dL POC Glucose (mg/dL) 114 H (70-110) mg/dL POC Glu New Product Trainer [place] Calcium (8.4-10.2) mg/dL Total Bilirubin (0.2-1.3) mg/dL AST (17-59) U/L ALT (4-49) U/L Alkaline Phosphatase (38-126) U/L Creatine Kinase (55-170) U/L Troponin I 0.017 (0.000-0.034) ng/mL Total Protein (6.3-8.2) g/dL Albumin (3.5-5.0) g/dL - Medical Decision Making On arrival patient is evaluated while still on the EMS stretcher. He is transferred to the hospital bed and the case is made code thrombolytic. I discussed with Dr. Patel, who stated he would review the CT scans and make recommendations. After reviewing the scans, Dr. Patel called back and stated that if the patient's INR came back at less than 1.6, he may be candidate for TNKase. As soon as the lab returned the value, I discussed with the patient and family the treatment options. There is some delay as they were having difficulty deciding, after discussion of risks, benefits, indications. The patient had CT of the brain that I interpreted as negative for intracranial hemorrhage. The patient had chest x-ray that I interpreted as negative for acute infiltrate, congestive heart failure, pneumothorax. The patient did have a subsequent CT scan of the brain that I interpreted as negative for acute intracranial hemorrhage. Was pt. sent in by a medical professional or institution (, PA, POWER PROJECT MANAGER, urgent care, hospital, or detention...) When possible be specific @ -[No] Did you speak to anyone other than the patient for history (EMS, parent, family, police, friend...)? What history was obtained from this source @ -[I did obtain history from EMS and from patient family. Did you review nursing and triage notes (agree or disagree)? Why? @ -[I reviewed and agree with nursing and triage notes] Were old charts reviewed (outside hosp., previous admission, EMS record, old EKG, old radiological studies, urgent care reports/EKG's, detention records)? Report findings @ -[No old charts were reviewed] Differential Diagnosis (chest pain, altered mental status, abdominal pain women, abdominal pain men, vaginal bleeding, weakness, fever, dyspnea, syncope, headache, dizziness, GI bleed, back pain, seizure, CVA, palpatations, mental health, musculoskeletal)? @ -[Differential CVA Ischemic stroke, hemorrhagic stroke, brain tumor, atypical migraine, Wernicke's encephalopathy, seizure, multiple sclerosis, meningitis, encephalitis, hypoglycemia, Guillain-Cade, electrolytes disturbance, myasthenia gravis.... This is not meant to be an all-inclusive list EKG interpreted by me (3pts min.). @ -[I interpreted as above] X-rays interpreted by me (1pt min.). @ -[I interpreted as above CT interpreted by me (1pt min.). @ -[I interpreted as above U/S interpreted by me (1pt. min.). @ -[None done] What testing was considered but not performed or refused? (CT, X-rays, U/S, lab s)? Why? @ -[None] What meds were considered but not given or refused? Why? @ -[None] Did you discuss the management of the patient with other professionals (professionals i.e. , PA, POWER PROJECT MANAGER, lab, RT, psych nurse, medical social consultant, jewel staker, teacher, aviation safety officer, wrapper caser)? Give summary @ -[Case is discussed with the interventional list and also with the admitting physician and treatment recommendations are incorporated Was smoking cessation discussed for >3mins.? @ -[No] Was critical care preformed (if so, how long)? @ -[Yes, 45 minutes Were there social determinants of health that impacted care today? How? (Homelessness, low income, unemployed, alcoholism, drug addiction, transportati on, low edu. Level, literacy, decrease access to med. care, residential, rehab)? @ -[No] Was there de-escalation of care discussed even if they declined (Discuss DNR or withdrawal of care, Hospice)? DNR status @ -[No] What co-morbidities impacted this encounter? (DM, HTN, Smoking, COPD, CAD, Cancer, CVA, ARF, Chemo, Hep., AIDS, mental health diagnosis, sleep apnea, morbid obesity)? @ -[None] Was patient admitted / discharged? Hospital course, mention meds given and route, prescriptions, significant lab abnormalities, going to OR and other pertinent info. @ -[The patient is administered TNKase and is admitted for further neurology evaluation and treatment. The patient did develop headache shortly after receiving the medication and therefore did have CT scan of the brain which did not reveal hemorrhage. Undiagnosed new problem with uncertain prognosis? @ -[No] Drug Therapy requiring intensive monitoring for toxicity (Heparin, Nitro, Insulin, Cardizem)? @ -[No] Were any procedures done? @ -[No] Diagnosis/symptom? @ -[Acute ischemic stroke Acute, or Chronic, or Acute on Chronic? @ -[Acute Uncomplicated (without systemic symptoms) or Complicated (systemic symptoms)? @ -[Uncomplicated Side effects of treatment? @ -[No] Exacerbation, Progression, or Severe Exacerbation? @ -[No] Poses a threat to life or bodily function? How? (Chest pain, USA, MD, pneumonia, PE, COPD, DKA, ARF, appy, cholecystitis, CVA, Diverticulitis, Homicidal, Suicidal, threat to staff... 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 "ENLARGED HEART VALVES" PER PATIENT. HX OF PROSTATE CANCER WITH SURGERY, HX OF THROAT CANCER WITH SURGERY-CHEMO AND RADIATION (2016), LOW IRON. [place] History of Any Multi-Drug Resistant Organisms: None Reported Past Surgical History: Orthopedic Surgery, Prostate Surgery Additional Past Surgical History / Comment(s): RIGHT SHOULDER X2, EGD'S, COLONOSCOPIES, MICAH CATARACTS, PATIENT STATES ESOPHAGUS REMOVED AND STOMACH USED. PROSTATE SX FOR CANCER, COLONOSCOPY, EGD, Past Anesthesia/Blood Transfusion Reactions: No Reported Reaction Past Psychological History: No Psychological Hx Reported Smoking Status: Never smoker Past Alcohol Use History: Unable to Obtain Past Drug Use History: Unable to Obtain - Past Family History Sister(s) Family Medical History: Cancer Additional Family Medical History / Comment(s): AT 13 YRS OF AGE. Course Vital Signs 12/11/23 12/11/23 12/11/23 01:06 01:42 01:43 Temperature 97.7 F Pulse Rate 94 91 Respiratory 20 20 Rate Blood Pressure 143/98 146/105 O2 Sat by Pulse 100 97 97 Oximetry 12/11/23 12/11/23 12/11/23 01:58 02:13 02:28 Temperature Pulse Rate 85 80 82 Respiratory 20 18 20 Rate Blood Pressure 140/102 140/92 139/100 O2 Sat by Pulse 98 95 95 Oximetry 12/11/23 12/11/23 12/11/23 02:43 02:58 03:07 Temperature Pulse Rate 78 79 80 Respiratory 20 20 20 Rate Blood Pressure 128/109 143/102 138/108 O2 Sat by Pulse 96 98 98 Oximetry 12/11/23 12/11/23 03:52 06:52 Temperature Pulse Rate 95 76 Respiratory 22 18 Rate Blood Pressure 152/92 105/74 O2 Sat by Pulse 99 97 Oximetry Disposition Clinical Impression: CVA (cerebral vascular accident) Disposition: ADMITTED IP TO THIS [facility] Condition: Critical Is patient prescribed a controlled substance at d/c from ED?: No
--- NOTE | 2023-12-11 02:13 | CT ---
EXAM: CT Angiography Head With Intravenous Contrast CLINICAL HISTORY: ITS.REASON CT Reason: Neuro deficit, acute, stroke suspected TECHNIQUE: Axial computed tomographic angiography images of the head with intravenous contrast. CTDI is 41.75 mGy and DLP is 477.3 mGy-cm. This CT exam was performed using one or more of the following dose reduction techniques: automated exposure control, adjustment of the mA and/or kV according to patient size, and/or use of iterative reconstruction technique. MIP reconstructed images were created and reviewed. COMPARISON: No relevant prior studies available. FINDINGS: Right internal carotid artery: Mild stenosis. No aneurysm. Right anterior cerebral artery: No significant stenosis. No aneurysm. Right middle cerebral artery: No significant stenosis. No aneurysm. Right posterior cerebral artery: No significant stenosis. No aneurysm. Right vertebral artery: Unremarkable. Left internal carotid artery: Mild stenosis. No aneurysm. Left anterior cerebral artery: No significant stenosis. No aneurysm. Left middle cerebral artery: Severe stenosis left anterior M2 branch. No aneurysm. Left posterior cerebral artery: No significant stenosis. No aneurysm. Left vertebral artery: Unremarkable. Basilar artery: No significant stenosis. No aneurysm. IMPRESSION: 1. Severe focal stenosis left anterior M2 branch. 2. Mild bilateral ICA stenosis. EXAM: CT Angiography Neck With Intravenous Contrast CLINICAL HISTORY: ITS.REASON CT Reason: Neuro deficit, acute, stroke suspected TECHNIQUE: Axial computed tomographic angiography images of the neck with intravenous contrast. CTDI is 41.75 mGy and DLP is 477.3 mGy-cm. This CT exam was performed using one or more of the following dose reduction techniques: automated exposure control, adjustment of the mA and/or kV according to patient size, and/or use of iterative reconstruction technique. MIP reconstructed images were created and reviewed. COMPARISON: No relevant prior studies available. FINDINGS: VASCULATURE: Right common carotid artery: No significant stenosis. No dissection. Right internal carotid artery: Mild stenosis. No dissection. Right vertebral artery: No significant stenosis. No dissection. Left common carotid artery: No significant stenosis. No dissection. Left internal carotid artery: No significant stenosis. No dissection. Left vertebral artery: No significant stenosis. No dissection. NECK: Lung apices: Severe bilateral pleural effusions. Mild pulmonary edema. CAROTID STENOSIS REFERENCE USING NASCET CRITERIA: % ICA stenosis = (1 - narrowest ICA diameter/diameter of distal cervical ICA) x 100. Mild - <50% stenosis. Moderate - 50-69% stenosis. Severe - 70-94% stenosis. Near occlusion - 95-99% stenosis. Occluded - 100% stenosis. IMPRESSION: Mild right ICA stenosis from atherosclerosis. Severe bilateral pleural effusions. Mild pulmonary edema.
--- NOTE | 2023-12-11 02:24 | XR ---
EXAM: XR Chest, 1 View CLINICAL HISTORY: ITS.REASON XR Reason: altered mental status TECHNIQUE: Frontal view of the chest. COMPARISON: No relevant prior studies available. IMPRESSION: Cardiomegaly. Moderate vascular congestion. Trace left effusion
[2023-12-11] MEDS ORDERED: [UNRECOGNIZED DRUG - OTHER] IVP STA (02:53)
[2023-12-11] MEDS ORDERED: TENECTEPLASE IVP STA (02:53)
[2023-12-11] MEDS: T.ENECTEPLASE 5 MG/ML VIAL IVP ONE (03:07)
[2023-12-11] MEDS: ACETAMINOPHEN TAB 325 MG TAB PO STA (03:35)
[2023-12-11] MEDS: ONDANSETRON 4 MG/2 ML VIAL IVP STA (04:02)
--- NOTE | 2023-12-11 04:03 | CT ---
EXAM: CT Head Without Intravenous Contrast CLINICAL HISTORY: headache after TNKase TECHNIQUE: Axial computed tomography images of the head/brain without intravenous contrast. CTDI is 49.2 mGy and DLP is 1125.4 mGy-cm. This CT exam was performed using one or more of the following dose reduction techniques: automated exposure control, adjustment of the mA and/or kV according to patient size, and/or use of iterative reconstruction technique. COMPARISON: No relevant prior studies available. FINDINGS: Brain: Accounting for limitations, no definite intracranial hemorrhage. No new mass effect. Stable subtle focal loss of the apple-white matter differentiation involving the posterior left parieto-occipital region, not appreciably altered from the previous examination. There is asymmetric effacement of the right parieto-occipital sulci, stable. Otherwise mild prominence of the cerebral sulci and sylvian fissures. Stable periventricular deep white matter hypodense changes. Ventricles: No midline shift or ventriculomegaly. Bones/joints: No acute osseous abnormality. No alteration. Soft tissues: Unremarkable. Sinuses: Unremarkable as visualized. No acute sinusitis. Mastoid air cells: Unremarkable as visualized. No mastoid effusion. Other findings: Residual intravascular contrast. IMPRESSION: Accounting for minimal residual intravascular contrast, there is no appreciable alteration in appearance of the parenchyma when compared to the prior examination performed at 0120 hrs.
[2023-12-11] MEDS ORDERED: LABETALOL 5 MG/ML VIAL MDV IVP PRN (04:38)
[2023-12-11 05:58] LABS: Anisocytosis (M) Present
[2023-12-11] MEDS: POTASSIUM CHLORIDE ER 20 MEQ TAB.ER PO SCH (07:50)
[2023-12-11] MEDS: METOPROLOL SUCCINATE (ER) 25 MG TAB.ER.24H PO SCH (08:54)
[2023-12-11] MEDS: CHOLECALCIFEROL 25 MCG (1000 IU) TABLET PO SCH (08:54)
[2023-12-11] MEDS: PANTOPRAZOLE 40 MG TABLET PO SCH (08:54)
[2023-12-11] MEDS: FAMOTIDINE 20 MG/2 ML VIAL IV SCH (08:55)
[2023-12-11] MEDS: SODIUM BICARBONATE TAB 650 MG TAB PO SCH (08:55)
[2023-12-11] MEDS: GABAPENTIN 300 MG CAP PO SCH ×3 (08:55→21:50)
[2023-12-11] MEDS: CYANOCOBALAMIN 500 MCG TAB PO SCH (08:55)
[2023-12-11] MEDS: TAMSULOSIN 0.4 MG CAP.ER.24H PO SCH (08:58)
[2023-12-11] MEDS: MULTIVITAMINS, THERA 1 EACH TAB PO SCH (08:58)
[2023-12-11] MEDS ORDERED: SENNOSIDES-DOCUSATE SODIUM 1 EACH TAB PO PRN (09:00)
[2023-12-11 09:31] LABS: Glucose,Whole Blood 114 mg/dL (70-110)
--- NOTE | 2023-12-11 11:29 | P.CNPUL ---
History of Present Illness Consult date: 12/11/23 Requesting physician: Obed Ba Reason for consult: other (Critical care management) Chief complaint: Expressive aphasia, left-sided weakness History of present illness: This is a 78-year-old male patient with a known history of chronic obstructive pulmonary disease, diabetes mellitus, gastroesophageal reflux disease, hyperlipidemia, hypertension, throat cancer with previous chemo and radiation in 2016 atrial fibrillation anticoagulated with warfarin. Last night he went to bed around midnight in his normal state of health and approximately an hour later he had gotten up to go to the bathroom and fell to the floor and his checked on him he was having difficulty speaking and left-sided weakness. EMS was called and he was brought here. Initial CT scan of the brain revealed no a cute normalities. CT angiogram revealed no significant stenosis. No aneurysm. INR is 1.5. His case was reviewed with Dr. Carrillo the neurosurgeon on-call. He deemed the patient appropriate for tenecteplase which was given at approximately 3:00 this morning. The patient is seen in consultation in the emergency department. He is currently resting on a stretcher. Awake and alert in no acute distress. His speech is clear. He has some residual left-sided weakness. Chest x-ray shows moderate pulmonary vascular congestion. Trace left effusion. White count 3.0. Hemoglobin 12.5. Platelets 154. Sodium 143. Potassium 5.2. Bicarb 28. BUN 23. Creatinine 0.89. Glucose 116. Troponins negative x 3. He is maintaining good O2 saturations in the upper 90s on 2 L/min per nasal cannula. He is afebrile. Hemodynamically stable. Review of Systems REVIEW OF SYSTEMS: CONSTITUTIONAL: Denies any recent significant weight loss or weight gain. EYES: Denies change in vision. EARS, NOSE, MOUTH, THROAT: Denies headaches, denies sore throat. CARDIOVASCULAR: Denies chest pain, palpitations or syncopal episodes. RESPIRATORY: Denies shortness of breath, cough, congestion or hemoptysis. GASTROINTESTINAL: Denies change in appetite, denies abdominal pain GENITOURINARY: Denies hematuria, denies infections. MUSKULOSKELETAL: Denies pain, denies swelling. INTEGUMENTARY: Denies rash, denies eczema. NEUROLOGICAL: Positive for expressive aphasia, left-sided weakness, denies recent memory loss, no recent seizure activity. PSYCHIATRIC: Denies anxiety, denies depression. HEMATOLOGIC/LYMPHATIC: Denies anemia, denies enlarged lymph nodes. Past Medical History Past Medical History: Cancer, COPD, Diabetes Mellitus, GERD/Reflux, Hype rlipidemia, Hypertension, Prostate Disorder Additional Past Medical History / Comment(s): COPD WITH SOB (NO RX)-( [employer] FOR 45 YEARS). "ENLARGED HEART VALVES" PER PATIENT. HX OF PROSTATE CANCER WITH SURGERY, HX OF THROAT CANCER WITH SURGERY-CHEMO AND RADIATION (2016) , LOW IRON. [place] History of Any Multi-Drug Resistant Organisms: None Reported Past Surgical History: Orthopedic Surgery, Prostate Surgery Additional Past Surgical History / Comment(s): RIGHT SHOULDER X2, EGD'S, COLONOSCOPIES, MICAH CATARACTS, PATIENT STATES ESOPHAGUS REMOVED AND STOMACH USED. PROSTATE SX FOR CANCER, COLONOSCOPY, EGD, Past Anesthesia/Blood Transfusion Reactions: No Reported Reaction Past Psychological History: No Psychological Hx Reported Smoking Status: Never smoker Past Alcohol Use History: Unable to Obtain Past Drug Use History: Unable to Obtain - Past Family History Sister(s) Family Medical History: Cancer Additional Family Medical History / Comment(s): AT 13 YRS OF AGE. Medications and Allergies Home Medications Medication Instructions Recorded Confirmed Type Omeprazole 20 mg PO DAILY 05/25/18 09/28/23 History Multivitamins, Thera [Multivitamin 1 tab PO DAILY 09/26/19 09/28/23 History (formulary)] Cholecalciferol [Vitamin D3 (25 25 mcg PO DAILY 10/04/21 09/28/23 History Mcg = 1000 Iu)] Cyanocobalamin (Vitamin B-12) 1,000 mcg PO DAILY 10/04/21 09/28/23 History [Vitamin B-12] rOPINIRole HCL [Requip] 0.5 mg PO HS 07/03/22 09/28/23 History Atorvastatin [Lipitor] 40 mg PO HS 11/25/22 09/28/23 History Carboxymethylcellulose Sodium 1 drop LEFT EYE HS 11/25/22 09/28/23 History [Thera Tears] Latanoprost/Pf [Latanoprost 0.005% 1 drop RIGHT EYE HS 11/25/22 09/28/23 History Eye Drop] Tamsulosin [Flomax] 0.4 mg PO DAILY 7 Days #7 cap 12/27/22 09/28/23 Rx Sodium Bicarbonate Tab 650 mg PO BID #60 tab 01/02/23 09/28/23 Rx Aspirin EC [Ecotrin Low Dose] 81 mg PO HS 01/16/23 09/28/23 History Potassium Chloride [Klor-Con M20] 20 meq PO DAILY@0700 01/16/23 09/28/23 History L.acidoph,Paracasei, B.lactis 1 each PO DAILY 09/22/23 09/28/23 History [Probiotic] Losartan [Cozaar] 25 mg PO HS 09/22/23 09/28/23 History Metoprolol Succinate [Metoprolol 25 mg PO DAILY 09/22/23 10/01/23 History Succinate ER] Pioglitazone [Actos] 15 mg PO HS 09/22/23 09/28/23 History Warfarin [Coumadin] 7.5 mg PO SUTUTH@209909/22/23 10/01/23 History Cyclobenzaprine [Flexeril] 5 mg PO TID PRN #30 tablet 10/01/23 Rx Gabapentin 300 mg PO TID #90 cap 10/01/23 Rx HYDROcodone/APAP 10-325MG [[place] 1 tab PO Q4-6H PRN #40 tab 10/01/23 Rx 10-325] Sennosides/Docusate Sodium [Senna 1 each PO DAILY PRN #20 capsule 10/01/23 Rx Plus 8.6-50 mg Softgel] Warfarin [Coumadin] 5 mg PO MOWEFRSA@209910/01/23 10/01/23 History cefaDROXiL [Duricef] 500 mg PO Q12HR #10 cap 10/01/23 Rx Allergies Allergy/AdvReac Type Severity Reaction Status Date / Time bee venom protein (honey bee) Allergy Severe Anaphylaxis Verified 09/28/23 07:19 latex Allergy Unknown Rash/Hives Verified 09/28/23 07:19 adhesive tape Allergy Unknown-Per Verified 09/28/23 07:19 Dr Dickens's office Physical Exam Vitals: Vital Signs Temp Pulse Resp BP Pulse Ox 12/11/23 10:45 70 7 L 116/81 98 12/11/23 10:30 66 12 109/76 98 12/11/23 10:15 73 12 105/75 97 12/11/23 10:00 63 19 101/67 97 12/11/23 09:45 71 16 101/67 95 12/11/23 09:30 68 16 99/66 95 12/11/23 09:27 97.8 F 67 16 98/75 94 L 12/11/23 06:52 76 18 105/74 97 12/11/23 03:52 95 22 152/92 99 12/11/23 03:07 80 20 138/108 98 12/11/23 02:58 79 20 143/102 98 12/11/23 02:43 78 20 128/109 96 12/11/23 02:28 82 20 139/100 95 12/11/23 02:13 80 18 140/92 95 12/11/23 01:58 85 20 140/102 98 12/11/23 01:43 97 12/11/23 01:42 91 20 146/105 97 12/11/23 01:06 97.7 F 94 20 143/98 100 Intake and Output 12/10/23 12/11/23 12/11/23 22:59 06:59 14:59 Intake Total 250 Output Total 0 Balance 250 Intake: IV 10 Invasive Line 1 10 Oral 240 Output: Urine 0 Other: # Bowel Movements 0 Weight 68.039 kg 83.8 kg GENERAL EXAM: Alert, awake, pleasant 78-year-old male, on 2 L nasal cannula, comfortable in no apparent distress. HEAD: Normocephalic. EYES: Normal reaction of pupils, equal size. NOSE: Clear with pink turbinates. THROAT: No erythema or exudates. NECK: No masses, no JVD. CHEST: No chest wall deformity. LUNGS: Equal air entry with bilateral scattered rhonchi more so on the right. CVS: S1 and S2 normal with no audible murmur, regular rhythm. ABDOMEN: No hepatosplenomegaly, normal bowel sounds, no guarding or rigidity. SPINE: No scoliosis or deformity SKIN: No rashes CENTRAL NERVOUS SYSTEM: Residual left-sided weakness, tone is normal in all 4 extremities. EXTREMITIES: There is no peripheral edema. No clubbing, no cyanosis. Peripheral pulses are intact. Results - Laboratory Findings CBC and BMP: 12/11/23 01:14 12/11/23 01:14 PT/INR, D-dimer PT 15.9 sec (10.0-12.5) H 12/11/23 01:14 INR 1.5 (<1.2) H 12/11/23 01:14 Abnormal lab findings: Abnormal Labs 12/11/23 12/11/23 12/11/23 01:14 01:14 01:14 WBC 3.0 L RBC 3.80 L Hgb 12.5 L MCV 109.2 H MCHC 30.1 L Lymphocytes # 0.4 L Macrocytosis Marked A PT 15.9 H INR 1.5 H Potassium 5.2 H Chloride 114 H BUN 23 H Glucose 116 H POC Glucose (mg/dL) Alkaline Phosphatase 128 H 12/11/23 12/11/23 01:16 09:29 WBC RBC Hgb MCV MCHC Lymphocytes # Macrocytosis PT INR Potassium Chloride BUN Glucose POC Glucose (mg/dL) 114 H 114 H Alkaline Phosphatase - Diagnostic Findings Chest x-ray: image reviewed Assessment and Plan Assessment: Acute CVA with left-sided weakness and expressive aphasia, status post tenecteplase at approximately 3 AM on 12/11/2023 with improvement Acute hypoxemic respiratory failure secondary to above currently on 2 L nasal cannula, chest x-ray shows some pulmonary venous congestion and possible aspiration History of atrial fibrillation anticoagulated with warfarin, subtherapeutic with an INR of 1.5 History of chronic obstructive pulmonary disease Hypertension Hyperlipidemia Diabetes mellitus Gastroesophageal reflux disease History of prostate cancer with previous surgery History of throat cancer with surgery and chemoradiation in 2016 Plan: The patient was seen and evaluated CT scans, chest x-ray, labs and medications reviewed May have some fluid volume overload versus aspiration Check a procalcitonin Titrate the FiO2 as tolerated Improved post tenecteplase Will monitor closely in the intensive care unit We will continue to follow and make further recommendations based on his clinical status I have personally seen and examined the patient, performed the documentation and the assessment and plan as written. Number of minutes spent on the visit: 20.
[2023-12-11] MEDS ORDERED: NON FORMULARY DRUG (Epinephrine (Auto Inject) 0.3 MG/0.3 ML Each) IM PRN (12:06)
--- NOTE | 2023-12-11 12:44 | P.HPIM ---
History of Present Illness Patient is a 78-year-old male came in with weakness on the left side of the body found to have stroke received tenecteplase. Patient has symptoms improved from 0/5 strength to 4/5 strength on the left side. Patient denies any speech problems. Patient had a CT angio of the head which showed complete occlusion of the M2 segment on the left side although his stroke is not explained by these findings. Patient does have history of chronic atrial fibrillation on anticoagulation with Coumadin patient is valvular A-fib and patient Coumadin is subtherapeutic on admission. Patient is far presently not receiving any antiplatelet therapy or anticoagulation because of tenecteplase this morning. Patient just had a chest x-ray which showed infiltrate bilaterally can be aspiration or can be congestive heart failure. Will obtain an proBNP procalcitonin was already ordered by pulmonology. Patient does not take any diuretics at home although echocardiogram showed normal ejection fraction with concentric left ventricular hypertrophy and patient can have diastolic function. Patient has multiple other medical problems including significant rash all over the body appears to be secondary to scratching. Patient is mildly elevated potassium levels and secondary to losartan he is taking. Patient blood pressure is low normal at this time. Patient denies any symptoms of dizziness denies any chest pain. Patient has significant EKG changes multiple ST-T wave changes appears not to be troponins are negative patient had a cardiac catheterization in the past and was told not a candidate for stenting does have coronary artery disease and will require medications for coronary disease. REVIEW OF SYSTEMS: CONSTITUTIONAL: No fever, no malaise, no fatigue. HEENT: No recent visual problems or hearing problems. Denied any sore throat. CARDIOVASCULAR: No chest pain, orthopnea, PND, no palpitations, no syncope. PULMONARY: No shortness of breath, no cough, no hemoptysis. GASTROINTESTINAL: No diarrhea, no nausea, no vomiting, no abdominal pain. NEUROLOGICAL: No headaches, . HEMATOLOGICAL: Denies any bleeding or petechiae. GENITOURINARY: Denies any burning micturition, frequency, or urgency. MUSCULOSKELETAL/RHEUMATOLOGICAL: Denies any joint pain, swelling, or any muscle pain. ENDOCRINE: Denies any polyuria or polydipsia. The rest of the 14-point review of systems is negative. PHYSICAL EXAMINATION: GENERAL: The patient is alert and oriented x3, not in any acute distress. Well developed, well nourished. HEENT: Pupils are round and equally reacting to light. EOMI. No scleral icterus. No conjunctival pallor. Normocephalic, atraumatic. No pharyngeal erythema. No thyromegaly. CARDIOVASCULAR: S1 and S2 present. No murmurs, rubs, or gallops. PULMONARY: Chest is clear to auscultation, no wheezing or crackles. ABDOMEN: Soft, nontender, nondistended, normoactive bowel sounds. No palpable organomegaly. MUSCULOSKELETAL: No joint swelling or deformity. EXTREMITIES: No cyanosis, clubbing, or pedal edema. NEUROLOGICAL: Strength is 4/5 in both left upper and lower extremities SKIN: No rashes. Assessment and plan -Cerebrovascular accident involving the left side of the body and subcortical areas in the right cerebral hemisphere, hold off on antiplatelet therapy or anticoagulation temporarily because of the thrombolytic therapy patient received. Unsure whether patient can have an MRI because of her his recent back surgery with hardware in the back. Will obtain echocardiogram will obtain a BNP. Patient passed swallow evaluation physical therapy and Occupational Therapy will evaluate the patient -Bilateral infiltrate may be aspiration awaiting procalcitonin level can be congestive heart failure, although patient clinically appears to be dry, if her BNP is below thousand patient will be started on gentle hydration -COPD without any acute exacerbation -Chronic atrial fibrillation with subtherapeutic INR -Hypertension: Patient is slightly hypotensive -Hyperlipidemia -Type 2 diabetes mellitus hold off pioglitazone, patient will be on sliding scale insulin History of prostate cancer and esophageal cancer for which patient received surgeries and chemoradiation Mild hyperkalemia secondary to losartan which is being held at this time DVT prophylaxis: Holding off pharmacological DVT prophylaxis as he received thrombolytic therapy earlier today Past Medical History Past Medical History: Cancer, COPD, Diabetes Mellitus, GERD/Reflux, H yperlipidemia, Hypertension, Prostate Disorder Additional Past Medical History / Comment(s): 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 "ENLARGED HEART VALVES" PER PATIENT. HX OF PROSTATE CANCER WITH SURGERY, HX OF THROAT CANCER WITH SURGERY-CHEMO AND RADIATION (20 16), LOW IRON. [place] History of Any Multi-Drug Resistant Organisms: None Reported Past Surgical History: Orthopedic Surgery, Prostate Surgery Additional Past Surgical History / Comment(s): RIGHT SHOULDER X2, EGD'S, COLONOSCOPIES, MICAH CATARACTS, PATIENT STATES ESOPHAGUS REMOVED AND STOMACH USED. PROSTATE SX FOR CANCER, COLONOSCOPY, EGD, osteomylitis spine, L1-L2 fx, T11-L4 stabilization with cage placement. 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 Medications and Allergies Home Medications Medication Instructions Recorded Confirmed Type Omeprazole 20 mg PO DAILY 05/25/18 12/11/23 History Multivitamins, Thera [Multivitamin 1 tab PO DAILY 09/26/19 12/11/23 History (formulary)] Cholecalciferol [Vitamin D3 (25 25 mcg PO DAILY 10/04/21 12/11/23 History Mcg = 1000 Iu)] Cyanocobalamin (Vitamin B-12) 1,000 mcg PO DAILY 10/04/21 12/11/23 History [Vitamin B-12] rOPINIRole HCL [Requip] 0.5 mg PO HS 07/03/22 12/11/23 History Carboxymethylcellulose Sodium 1 drop LEFT EYE HS 11/25/22 12/11/23 History [Thera Tears] Latanoprost/Pf [Latanoprost 0.005% 1 drop RIGHT EYE HS 11/25/22 12/11/23 History Eye Drop] Tamsulosin [Flomax] 0.4 mg PO DAILY 7 Days #7 cap 12/27/22 12/11/23 Rx Sodium Bicarbonate Tab 650 mg PO BID #60 tab 01/02/23 12/11/23 Rx Aspirin EC [Ecotrin Low Dose] 81 mg PO HS 01/16/23 12/11/23 History Potassium Chloride [Klor-Con M20] 20 meq PO DAILY@0700 01/16/23 12/11/23 History L.acidoph,Paracasei, B.lactis 1 cap PO DAILY 09/22/23 12/11/23 History [Probiotic] Losartan [Cozaar] 25 mg PO HS 09/22/23 12/11/23 History Metoprolol Succinate [Metoprolol 25 mg PO DAILY 09/22/23 12/11/23 History Succinate ER] Warfarin [Coumadin] 7.5 mg PO SUTUTH@2100 09/22/23 12/11/23 History Cyclobenzaprine [Flexeril] 5 mg PO TID PRN #30 tablet 10/01/23 12/11/23 Rx HYDROcodone/APAP 10-325MG [[place] 1 tab PO Q4-6H PRN #40 tab 10/01/23 12/11/23 Rx 10-325] Warfarin [Coumadin] 5 mg PO MOWEFRSA@2100 10/01/23 12/11/23 History cefaDROXiL [Duricef] 500 mg PO Q12HR #10 cap 10/01/23 12/11/23 Rx Atorvastatin [Lipitor] 40 mg PO HS 12/11/23 12/11/23 History EPINEPHrine (Auto Inject) [Epipen] 0.3 mg IM ONCE PRN 12/11/23 12/11/23 History Ferrous Sulfate [Feosol] 325 mg PO DAILY 12/11/23 12/11/23 History Gabapentin 300 mg PO HS 12/11/23 12/11/23 History Ondansetron Odt [Zofran Odt] 4 mg PO DAILY PRN 12/11/23 12/11/23 History Pioglitazone [Actos] 15 mg PO DAILY 12/11/23 12/11/23 History Sennosides/Docusate Sodium [Senna 1 cap PO DAILY PRN 12/11/23 12/11/23 History Plus 8.6-50 mg Softgel] Allergies Allergy/AdvReac Type Severity Reaction Status Date / Time bee venom protein (honey bee) Allergy Severe Anaphylaxis Verified 09/28/23 07:19 latex Allergy Unknown Rash/Hives Verified 09/28/23 07:19 adhesive tape Allergy Unknown-Per Verified 09/28/23 07:19 Dr Dickens's office Physical Exam Vitals: Vital Signs Temp Pulse Resp BP Pulse Ox 12/11/23 12:30 71 22 103/71 95 12/11/23 12:15 73 23 112/75 95 12/11/23 12:04 97 12/11/23 12:00 97.7 F 64 12 111/76 99 12/11/23 11:45 71 24 110/79 98 12/11/23 11:30 72 20 114/85 97 12/11/23 11:15 74 22 116/86 98 12/11/23 11:00 67 14 132/88 97 12/11/23 10:45 70 7 L 116/81 98 12/11/23 10:30 66 12 109/76 98 12/11/23 10:15 73 12 105/75 97 12/11/23 10:00 63 19 101/67 97 12/11/23 09:45 71 16 101/67 95 12/11/23 09:30 68 16 99/66 95 12/11/23 09:27 97.8 F 67 16 98/75 94 L 12/11/23 06:52 76 18 105/74 97 12/11/23 03:52 95 22 152/92 99 12/11/23 03:07 80 20 138/108 98 12/11/23 02:58 79 20 143/102 98 12/11/23 02:43 78 20 128/109 96 12/11/23 02:28 82 20 139/100 95 12/11/23 02:13 80 18 140/92 95 12/11/23 01:58 85 20 140/102 98 12/11/23 01:43 97 12/11/23 01:42 91 20 146/105 97 12/11/23 01:06 97.7 F 94 20 143/98 100 Intake and Output 12/10/23 12/11/23 12/11/23 22:59 06:59 14:59 Intake Total 260 Output Total 0 Balance 260 Intake: IV 20 Invasive Line 1 20 Oral 240 Output: Urine 0 Other: Voiding Method Indwelling Catheter # Bowel Movements 0 Weight 68.039 kg 83.8 kg Results CBC & Chem 7: 12/11/23 01:14 12/11/23 01:14 Labs: Abnormal Lab Results - Last 24 Hours (Table) 12/11/23 12/11/23 12/11/23 Range/Units 01:14 01:14 01:14 WBC 3.0 L (3.8-10.6) k/uL RBC 3.80 L (4.30-5.90) m/uL Hgb 12.5 L (13.0-17.5) gm/dL MCV 109.2 H (80.0-100.0) fL MCHC 30.1 L (31.0-37.0) g/dL Lymphocytes # 0.4 L (1.0-4.8) k/uL Macrocytosis Marked A PT 15.9 H (10.0-12.5) sec INR 1.5 H (<1.2) Potassium 5.2 H (3.5-5.1) mmol/L Chloride 114 H (98-107) mmol/L BUN 23 H (9-20) mg/dL Glucose 116 H (74-99) mg/dL POC Glucose (mg/dL) (70-110) mg/dL Alkaline Phosphatase 128 H (38-126) U/L 12/11/23 12/11/23 Range/Units 01:16 09:29 WBC (3.8-10.6) k/uL RBC (4.30-5.90) m/uL Hgb (13.0-17.5) gm/dL MCV (80.0-100.0) fL MCHC (31.0-37.0) g/dL Lymphocytes # (1.0-4.8) k/uL Macrocytosis PT (10.0-12.5) sec INR (<1.2) Potassium (3.5-5.1) mmol/L Chloride (98-107) mmol/L BUN (9-20) mg/dL Glucose (74-99) mg/dL POC Glucose (mg/dL) 114 H 114 H (70-110) mg/dL Alkaline Phosphatase (38-126) U/L Thrombosis Risk Factor Assmnt - Choose All That Apply Any of the Below Risk Factors Present?: Yes Each Factor Represents 1 point: Obesity (BMI >25) Each Risk Factor Represents 3 Points: Age 75 years or older Thrombosis Risk Factor Assessment Total Risk Factor Score: 4 Thrombosis Risk Factor Assessment Level: Moderate Risk
--- NOTE | 2023-12-11 15:08 | P.CNNES ---
History of Present Illness Consult date: 12/11/23 Requesting physician: Henry Newell Reason for Consult: acute cva post TNK History of Present Illness: this is a 78-year-old gentleman with history of atrial fibrillation on Coumadin who presented emergency department because of left-sided weakness and speech difficulty. History is obtained from the patient's . According to the yesterday at midnight patient's was trying to say something but his speech was o ff and that she knows that he had left-sided weakness. Last normal was at 10 PM yesterday and he was doing well. seem to the patient woke up about going to bathroom. It seems that he has underlying history of atrial fibrillation on Coumadin. According to the his INR was supratherapeutic so his Coumadin had to be modified then was subtherapeutic and again hockey leo jerry and had take a larger dose. Patient denies any history of stroke or TIAs. According to the patient's he follows up with Dr. Murphy and has neuropathy and he is on gabapentin.she is also on home dose of aspirin 81 mg daily. patient has chronic lower back pain and the has residual back surgery and walks with walker. Is seems the patient presented to our facility around 1:05 AM today. a code stroke was activated by the ED team. Patient had CT which was negative for any acute stroke or bleed. He also had CT angiography of the head and neck which showed severe focal stenosis of the left anterior M2 branch. Bilateral mild ICA stenosis. Mild right ICA stenosis from and stenosis. The ED spoke with stroke attending (Dr. Russ) and it is reported that the he reviewed the images and recommend INR is less than 1.6 to pursue with tearing K with. The INR was 1.5 Therefore the patient received around 2:55am today. patient had a repeat CT of the head overnight since the patient had headache after the thrombolytic but there is no at the any acute or bleed noted on the repeat. Per the patient denies of any headache. He's having pain over proximal left shoulder. Some of the other workup consisted of: sodium is 143. Potassium was 5.2 Initial serum glucose is 116. I personally reviewed the CT angiography and I felt the left ICA at it's reported the M2 severe stenosis I felt was more distal than M2 more like M3 or M4. Review of Systems The positive and negative as per HPI. 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 "ENLARGED HEART VALVES" PER PATIENT. HX OF PROSTATE CANCER WITH SURGERY, HX OF THROAT CANCER WITH SURGERY-CHEMO AND RADIATION (2016), LOW IRON. CHEVAK History of Any Multi-Drug Resistant Organisms: None Reported Past Surgical History: Orthopedic Surgery, Prostate Surgery Additional Past Surgical History / Comment(s): RIGHT SHOULDER X2, EGD'S, COLONOSCOPIES, MICAH CATARACTS, PATIENT STATES ESOPHAGUS REMOVED AND STOMACH USED. PROSTATE SX FOR CANCER, COLONOSCOPY, EGD, osteomylitis spine, L1-L2 fx, T11-L4 stabilization with cage placement. 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 Medications and Allergies Home Medications Medication Instructions Recorded Confirmed Type Omeprazole 20 mg PO DAILY 05/25/18 12/11/23 History Multivitamins, Thera [Multivitamin 1 tab PO DAILY 09/26/19 12/11/23 History (formulary)] Cholecalciferol [Vitamin D3 (25 25 mcg PO DAILY 10/04/21 12/11/23 History Mcg = 1000 Iu)] Cyanocobalamin (Vitamin B-12) 1,000 mcg PO DAILY 10/04/21 12/11/23 History [Vitamin B-12] rOPINIRole HCL [Requip] 0.5 mg PO HS 07/03/22 12/11/23 History Carboxymethylcellulose Sodium 1 drop LEFT EYE HS 11/25/22 12/11/23 History [Thera Tears] Latanoprost/Pf [Latanoprost 0.005% 1 drop RIGHT EYE HS 11/25/22 12/11/23 History Eye Drop] Tamsulosin [Flomax] 0.4 mg PO DAILY 7 Days #7 cap 12/27/22 12/11/23 Rx Sodium Bicarbonate Tab 650 mg PO BID #60 tab 01/02/23 12/11/23 Rx Aspirin EC [Ecotrin Low Dose] 81 mg PO HS 01/16/23 12/11/23 History Potassium Chloride [Klor-Con M20] 20 meq PO DAILY@0700 01/16/23 12/11/23 History L.acidoph,Paracasei, B.lactis 1 cap PO DAILY 09/22/23 12/11/23 History [Probiotic] Losartan [Cozaar] 25 mg PO HS 09/22/23 12/11/23 History Metoprolol Succinate [Metoprolol 25 mg PO DAILY 09/22/23 12/11/23 History Succinate ER] Warfarin [Coumadin] 7.5 mg PO SUTUTH@209909/22/23 12/11/23 History Cyclobenzaprine [Flexeril] 5 mg PO TID PRN #30 tablet 10/01/23 12/11/23 Rx HYDROcodone/APAP 10-325MG [[place] 1 tab PO Q4-6H PRN #40 tab 10/01/23 12/11/23 Rx 10-325] Warfarin [Coumadin] 5 mg PO MOWEFRSA@2100 10/01/23 12/11/23 History cefaDROXiL [Duricef] 500 mg PO Q12HR #10 cap 10/01/23 12/11/23 Rx Atorvastatin [Lipitor] 40 mg PO HS 12/11/23 12/11/23 History EPINEPHrine (Auto Inject) [Epipen] 0.3 mg IM ONCE PRN 12/11/23 12/11/23 History Ferrous Sulfate [Feosol] 325 mg PO DAILY 12/11/23 12/11/23 History Gabapentin 300 mg PO HS 12/11/23 12/11/23 History Ondansetron Odt [Zofran Odt] 4 mg PO DAILY PRN 12/11/23 12/11/23 History Pioglitazone [Actos] 15 mg PO DAILY 12/11/23 12/11/23 History Sennosides/Docusate Sodium [Senna 1 cap PO DAILY PRN 12/11/23 12/11/23 History Plus 8.6-50 mg Softgel] Allergies Allergy/AdvReac Type Severity Reaction Status Date / Time bee venom protein (honey bee) Allergy Severe Anaphylaxis Verified 09/28/23 07:19 latex Allergy Unknown Rash/Hives Verified 09/28/23 07:19 adhesive tape Allergy Unknown-Per Verified 09/28/23 07:19 Dr Dickens's office Physical Examination - Vital Signs Vital Signs: Vital Signs Temp Pulse Resp BP Pulse Ox 12/11/23 13:00 69 19 95/65 98 12/11/23 12:45 62 24 85/55 98 12/11/23 12:30 71 22 103/71 95 12/11/23 12:15 73 23 112/75 95 12/11/23 12:04 97 12/11/23 12:00 97.7 F 64 12 111/76 99 12/11/23 11:45 71 24 110/79 98 12/11/23 11:30 72 20 114/85 97 12/11/23 11:15 74 22 116/86 98 12/11/23 11:00 67 14 132/88 97 12/11/23 10:45 70 7 L 116/81 98 12/11/23 10:30 66 12 109/76 98 12/11/23 10:15 73 12 105/75 97 12/11/23 10:00 63 19 101/67 97 12/11/23 09:45 71 16 101/67 95 12/11/23 09:30 68 16 99/66 95 12/11/23 09:27 97.8 F 67 16 98/75 94 L 12/11/23 06:52 76 18 105/74 97 12/11/23 03:52 95 22 152/92 99 12/11/23 03:07 80 20 138/108 98 12/11/23 02:58 79 20 143/102 98 12/11/23 02:43 78 20 128/109 96 12/11/23 02:28 82 20 139/100 95 12/11/23 02:13 80 18 140/92 95 12/11/23 01:58 85 20 140/102 98 12/11/23 01:43 97 12/11/23 01:42 91 20 146/105 97 12/11/23 01:06 97.7 F 94 20 143/98 100 Intake and Output 12/10/23 12/11/23 12/11/23 22:59 06:59 14:59 Intake Total 500 Output Total 800 Balance -300 Intake: IV 20 Invasive Line 1 20 Oral 480 Output: Urine 800 Other: Voiding Method Indwelling Catheter # Bowel Movements 0 Weight 68.039 kg 83.8 kg General: Lying in bed and is not in acute distress. HENT: Supple neck. Neuro: the patient is awake alert oriented to self, place and month. He stated the year as 2022. Patient is following simple commands. No aphasia from limited language. Pupils are round equal reactive to light. The pupils are round to nose bilaterally. Visual villagomez are full to confrontation. Extraocular movement had limitation and following commands but no appreciable nystagmus.. Normal facial sensation. No facial weakness. Patient is hypophonic and hoarse voice. Tongue is midline and moved [id number] without difficulty Motor: The strength is limited in the left upper extremity because of left s houlder pain otherwise is moving lowers above gravity symmetrically as well as strengthening for the right upper extremity is 5 out of 5. Left upper extremity is able to lift above gravity but limited because of pain. 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 Normal tone and bulk. Sensation: Normal to touch throughout. Cerebellar: Unable to perform because of pain. Reflex: 2+ throughout except ankles are 1+. Plantars: Mute bilaterally. Results - Laboratory Findings CBC and BMP: 12/11/23 01:14 12/11/23 01:14 Abnormal Lab Findings: Abnormal Labs 12/11/23 12/11/23 12/11/23 01:14 01:14 01:14 WBC 3.0 L RBC 3.80 L Hgb 12.5 L MCV 109.2 H MCHC 30.1 L Lymphocytes # 0.4 L Macrocytosis Marked A PT 15.9 H INR 1.5 H Potassium 5.2 H Chloride 114 H BUN 23 H Glucose 116 H POC Glucose (mg/dL) Alkaline Phosphatase 128 H 12/11/23 12/11/23 01:16 09:29 WBC RBC Hgb MCV MCHC Lymphocytes # Macrocytosis PT INR Potassium Chloride BUN Glucose POC Glucose (mg/dL) 114 H 114 H Alkaline Phosphatase Assessment and Plan Assessment: this is a 78-year-old gentleman with history of atrial fibrillation and is on Coumadin who presents because of speech difficulty and left sided weakness that is noted at 12am today. Last normal was 2 hours prior to that. His INR is subtherapeutic of 1.5 and per his coumadin dose was being adjusted at times subtherapeutic and at times subtherapeutic. He received IV thrombolytic. Acute ischemic stroke with left sided weakness and speech difficulty post IV thrombolytic. Symptoms improving. Etiology of stroke is likely cardioembolic due to hx of A-fib Reported Severe left M2 severe stenosis and I personally reviewed it and felt more distal than M2 History of atrial fibrillation on coumadin with subtherapeutic INR DM Neuropathy Chronic lower back pain and had surgery a year ago Plan: patient will get a repeat CT of the head that 24-hour post-the IV thrombolytic which is around 3am tomorrow. A CT of the head is negative for any bleed then pursue with ASA mg. Will continue to hold coumadin until we get repeat CT or MRI to delineate size of stroke. Will make further recommendation tomorrow about restart of coumadin after imaging. initially the ED started the patient on aspirin but I canceled the order since the patient received IV thrombolytic and again as stated above if the CT of the head is negative tomorrow then we will resume the aspirin. patient is on Lipitor 40 mg daily at bedtime and that's his home medication. I ordered MRI Brain, 2-D echo Lipid panels ordered and is pending continue her checks Cardiac monitoring PT OT and SCREW DRIVER OPERATOR are consulted recommend the systolic blood pressure to be less than 180 and diastolic blood pressure to be less than the 105 for IV thrombolytic protocol. X-ray of the left shoulder is ordered by the primary team We'll defer the rest of the medical management the primary and other specialists for DVT prophylaxis use SCDs for now. The plan discussed with the patient, his was at bedside primary attending and ICU nurse Thank you for the consultation Time with Patient: Greater than 30
--- NOTE | 2023-12-11 18:19 | XR ---
EXAMINATION TYPE: XR shoulder complete 3 views LT DATE OF EXAM: 12/11/2023 Comparison: None Clinical History: 78-year-old male post fall, pain Findings: Severe degenerative change AC joint with joint space narrowing and marginal spurring. There is loss o f the subacromial space and rounded contour to the greater tuberosity with abutment of the acromion w ith the humeral head. Mild degenerative spurring at the glenohumeral joint. No acute fracture or disl ocation. Impression: Severe AC joint OA and chronic full-thickness rotator cuff tear. Suspect mild rotator cuff arthropath y. Partially visualized left mid and lower lung disease.
--- NOTE | 2023-12-11 19:16 | CA ---
Transthoracic Echo Report Name: Evan Webb Age: 78 Gender: M : 1945 Exam Date: 12/11/2023 15:12 Exam Location: [facility] Ht (in): 67 Wt (lb): 184 Ordering Physician: Kian Obrien MD Attending/Referring Phys: Race Starter Nika Matute RDCS Procedure CPT: Indications: stroke Cardiac Hx: Technical Quality: Good Contrast 1: Agitated Saline Total Dose (mL): 9 Contrast 2: Total Dose (mL): MEASUREMENTS (Male / Female) Normal Values 2D ECHO LV Diastolic Diameter PLAX 4.4 cm 4.2 - 5.9 / 3.9 - 5.3 cm LV Systolic Diameter PLAX 3.4 cm IVS Diastolic Thickness 1.3 cm 0.6 - 1.0 / 0.6 - 0.9 cm LVPW Diastolic Thickness 1.3 cm 0.6 - 1.0 / 0.6 - 0.9 cm LV Relative Wall Thickness 0.6 RV Internal Dim ED PLAX 3.1 cm LVOT Diameter 2.3 cm LA Systolic Diameter LX 4.2 cm 3.0 - 4.0 / 2.7 - 3.8 cm LA Volume 101.7 cm??? 18 - 58 / 22 - 52 cm??? LA Volume Index 50.7 cm???/m??? 16 - 28 cm???/m??? Aorta at Sinotubular Diameter 3.6 cm DOPPLER AV Peak Velocity 301.0 cm/s AV Peak Gradient 36.2 mmHg AV Mean Velocity 238.8 cm/s AV Mean Gradient 25.1 mmHg AV Velocity Time Integral 72.3 cm AI Peak Velocity 342.8 cm/s AI Peak Gradient 47.0 mmHg AI Pressure Half Time 1042.4 ms MV Area PHT 4.2 cm??? MV Deceleration Time 159.9 ms TR Peak Velocity 245.8 cm/s TR Peak Gradient 24.2 mmHg Right Ventricular Systolic Press 45.0 mmHg FINDINGS Left Ventricle Left ventricular ejection fraction is estimated at 30-35 %. Left ventricular cavity size normal. Mild concentric left ventricular hypertrophy. Moderately reduced global left ventricular systolic function Right Ventricle Normal right ventricular size. Moderate pulmonary hypertension. Right Atrium Normal right atrial size. Left Atrium Mildly increased left atrial diameter. Severely increased left atrial volume. Moderately increased left atrial area. Mitral Valve Mitral valve thickened. Mild mitral regurgitation. Aortic Valve Moderate aortic valve sclerosis. Moderate aortic stenosis with a peak gradient of 36 mmHg and a mean gradient of 25 mmHg. Mild aortic regurgitation. Tricuspid Valve Structurally normal tricuspid valve. Mild tricuspid regurgitation. Pulmonic Valve Structurally normal pulmonic valve. No pulmonic regurgitation. Pericardium No pericardial effusion. Aorta Normal size aortic root and proximal ascending aorta. CONCLUSIONS Increased LV mass with reduced LV systolic function 30-35% Thickened aortic valve with moderate aortic stenosis Previewed by: Dr. Sheldon Marion MD (Electronically Signed) Final Date: 11 December 2023 19:15
[2023-12-11] MEDS: LACTATED RINGERS 1,000 ML IV ONE (19:48)
[2023-12-11] MEDS ORDERED: PIOGLITAZONE 15 MG TAB PO SCH (21:00)
[2023-12-11] MEDS ORDERED: ATORVASTATIN 40 MG TAB PO SCH (21:00)
[2023-12-11] MEDS ORDERED: ATORVASTATIN 80 MG TAB PO SCH (21:00)
[2023-12-11] MEDS ORDERED: LOSARTAN 25 MG TAB PO SCH (21:00)
[2023-12-11] MEDS: ATORVASTATIN 40 MG TAB PO SCH (21:50)
[2023-12-11] MEDS: LATANOPROST 0.005% OPHTH DROPS 2.5 ML BTL RIGHT EYE SCH (22:00)
[2023-12-12 06:18] LABS: Hypochromasia Marked; MCH 32.8 pg (25.0-35.0); MCHC 29.5 g/dL (31.0-37.0); MCV 111.3 fL (80.0-100.0); Macrocytosis Marked; Mean Platelet Volume 8.2; Platelet Count 120 k/uL (150-450); RBC 2.51 m/uL (4.30-5.90); RDW 15.5 % (11.5-15.5); WBC 3.7 k/uL (3.8-10.6)
[2023-12-12 06:26] LABS: HGB 8.2 gm/dL (13.0-17.5)
[2023-12-12 06:47] LABS: African American GFR (CKD) >90 (>60 ml/min/1.73 sqM); Anion Gap 1 mmol/L; Blood Urea Nitrogen 16 mg/dL (9-20); Carbon Dioxide 28 mmol/L (22-30); Chloride 110 mmol/L (98-107); Glucose 85 mg/dL (74-99); Non-African American GFR(CKD) 86 (>60 ml/min/1.73 sqM); Potassium 4.4 mmol/L (3.5-5.1); Sodium 139 mmol/L (137-145)
--- NOTE | 2023-12-12 08:00 | CT ---
EXAMINATION TYPE: CT brain wo con DATE OF EXAM: 12/12/2023 COMPARISON: 12/11/2023 HISTORY: 78-year-old male Neuro deficit, acute, stroke suspected. To be done 22-24hrs post TPA infus ion. TECHNIQUE: Examination was done in axial plane without intravenous contrast. Coronal and sagittal r econstructions performed. CT DLP: 1095.4 mGycm Automated exposure control for dose reduction was used. FINDINGS: There is hypodensity right parietal lobe and posterior temporal lobe with associated sulcal effacemen t. No midline shift, hydrocephalus, herniation, or acute intracranial hemorrhage is seen. Atheroscler otic calcifications within the bilateral carotid siphons. Some scattered skull base artifact overlyin g the brainstem. Trace mucosal thickening ethmoid air cells. Mastoid air cells are pneumatized. Orbits and globes are intact. IMPRESSION: Evolving right HYDROCHLORIC MANUFACTURING SUPERVISOR territory infarct with hypodensity and sulcal effacement. No midline shift, hydroc ephalus, or acute intracranial hemorrhage at this time.
[2023-12-12] MEDS ORDERED: ASPIRIN 325 MG TAB PO SCH (09:00)
[2023-12-12] MEDS ORDERED: diphenhydrAMINE 25 MG CAP PO PRN (09:45)
[2023-12-12] MEDS: NOREPINEPHRINE 4 MG in SODIUM CHLORIDE 0.9% 250 ML IV SCH (10:20)
[2023-12-12 11:46] LABS: HCT 30.3 % (39.0-53.0); HGB 9.2 gm/dL (13.0-17.5); Hypochromasia Marked; MCH 34.2 pg (25.0-35.0); MCHC 30.2 g/dL (31.0-37.0); MCV 113.1 fL (80.0-100.0); Macrocytosis Marked; Mean Platelet Volume 8.3; Platelet Count 125 k/uL (150-450); RBC 2.68 m/uL (4.30-5.90); RDW 15.3 % (11.5-15.5); WBC 4.1 k/uL (3.8-10.6)
--- NOTE | 2023-12-12 12:01 | P.PN ---
Subjective Progress Note Date: 12/12/23 I am following-up with patient and per nurse he has hematoma over the left arm. It seems his hemoglobin dropped 4 points. Patient denies of headache or any new neurological issues. He had repeat CT head today and no bleed and showed right CHILD PROTECTIVE SERVICES SPECIALIST stroke. Objective - Vital Signs Vital signs: Vital Signs Temp 98.7 F 12/12/23 08:00 Pulse 78 12/12/23 11:00 Resp 27 H 12/12/23 11:00 BP 102/70 12/12/23 11:00 Pulse Ox 97 12/12/23 11:00 FiO2 Intake & Output 12/11/23 12/12/23 12/12/23 18:59 06:59 18:59 Intake Total 950 1000 230 Output Total 970 460 240 Balance -20 540 -10 Weight 83.8 kg 86.2 kg Intake: IV 30 1000 Invasive Line 1 30 Lactated Ringers 1,000 ml 1000 @ 999 mls/hr IV .Q1H1M ONE Rx#:[id number] Oral 920 230 Output: Urine 970 460 240 Other: Voiding Method Indwelling Catheter Indwelling Catheter Indwelling Catheter # Bowel Movements 0 - Exam General: Lying in bed and is not in acute distress. HENT: Supple neck. Neuro: the patient is awake alert oriented to self, place and year. He stated the Month is December. Patient is following simple commands. No aphasia from limited language. Pupils are round equal reactive to light. The pupils are round to nose bilaterally. Visual villagomez Had a hard time assessing on first time but last appear normal. Extraocular movement had limitation and following commands but no appreciable nystagmus.. Normal facial sensation. No facial weakness. Patient is hypophonic and hoarse voice. Tongue is midline and moved [id number] without difficulty Motor: The strength is limited in the left upper extremity because of left shoulder pain otherwise is moving lowers above gravity symmetrically as well as strengthening for the right upper extremity is 5 out of 5. Left upper extremity is able to lift above gravity but limited because of pain. Normal hand occupational therapy department chair. Normal tone and bulk. Sensation: Normal to touch throughout. Cerebellar: Unable to perform because of pain. Reflex: 2+ throughout except ankles are 1+. Plantars: Mute bilaterally. Some of the work-up during this hospital visit consisted of: Initial CT which was negative for any acute stroke or bleed. CT angiography of the head and neck which showed severe focal stenosis of the left anterior M2 branch. Bilateral mild ICA stenosis. Mild right ICA stenosis from and stenosis. repeat CT of the head overnight since the patient had headache after the thrombolytic but there is no at the any acute or bleed noted on the repeat. Repeat CT head post 24 hour IV thrombolytic reported as evolving right CHILD PROTECTIVE SERVICES SPECIALIST territory infarct with hypodensity and sulcal effacement. No midline shift, hydrocephalus or acute intracranial hemorrhage at this time. I personally reviewed CT and agree there is acute/subacute right CHILD PROTECTIVE SERVICES SPECIALIST stroke. 2D echo: Reported as increased LV mass with reduced LV systolic function 30-35%. Thickened aortic valve with moderate aortic stenosis - Labs CBC & Chem 7: 12/12/23 11:07 12/12/23 05:19 Labs: Abnormal Lab Results - Last 24 Hours (Table) 12/12/23 12/12/23 Range/Units 05:19 05:19 WBC 3.7 L (3.8-10.6) k/uL RBC 2.51 L (4.30-5.90) m/uL Hgb 8.2 L D (13.0-17.5) gm/dL Hct 28.0 L (39.0-53.0) % MCV 111.3 H (80.0-100.0) fL MCHC 29.5 L (31.0-37.0) g/dL Plt Count 120 L (150-450) k/uL Macrocytosis Marked A Chloride 110 H (98-107) mmol/L Calcium 8.0 L (8.4-10.2) mg/dL Assessment and Plan Assessment: this is a 78-year-old gentleman with history of atrial fibrillation and is on Coumadin who presents because of speech difficulty and left sided weakness that is noted at 12am today. Last normal was 2 hours prior to that. His INR is subtherapeutic of 1.5 and per his coumadin dose was being adjusted at times subtherapeutic and at times subtherapeutic. He received IV thrombolytic. Acute ischemic stroke over the CHILD PROTECTIVE SERVICES SPECIALIST (presented with left sided weakness and speech difficulty) post IV thrombolytic. Symptoms improving. Etiology of stroke is likely cardioembolic due to hx of A-fib. Reported Severe left M2 severe stenosis and I personally reviewed it and felt more distal than M2 Anemia with drop of hemoglobin from 12 to 8. Patient has left arm hematoma. History of atrial fibrillation on coumadin with subtherapeutic INR DM Neuropathy Chronic lower back pain and had surgery a year ago Plan: Repeat CT head is negative for bleed. Because of anemia and hematoma over the left arm. From neurological perspective to start ASA 325mg daily if cleared by primary team because of anemia and hematoma. If felt ASA 325mg is large dose then can start 81mg daily. Will hold off anticoagulation to avoid hemorrhagic conversion because of recent stroke and since has anemia. Consider starting within 2 days from today if no further worsening of anemia or any bleed. patient is on Lipitor 40 mg daily at bedtime and that's his home medication. Pending MRI Brain 2-D echo reported as increased left venticular mass. Therefore recommend consulting cardiology team. Lipid panels is pending continue her checks Cardiac monitoring PT OT and FISHERIES MANAGEMENT BIOLOGIST are consulted recommend the systolic blood pressure to be less than 180 and diastolic blood pressure to be less than the 105 for IV thrombolytic protocol. We'll defer the rest of the medical management the primary and other specialists for DVT prophylaxis use SCDs for now. Recommend starting subq heparin or lovenox if If felt anemia and hematoma is stable. The plan discussed with the patient and ICU nurse Time with Patient: Less than 30
[2023-12-12] MEDS: ONDANSETRON 4 MG/2 ML VIAL IVP PRN (13:00)
--- NOTE | 2023-12-12 13:40 | P.PN ---
Subjective Progress Note Date: 12/12/23 This is a 78-year-old male patient with a known history of chronic obstructive pulmonary disease, diabetes mellitus, gastroesophageal reflux disease, hyperlipidemia, hypertension, throat cancer with previous chemo and radiation in 2016 atrial fibrillation anticoagulated with warfarin. Last night he went to bed around midnight in his normal state of health and approximately an hour later he had gotten up to go to the bathroom and fell to the floor and his checked on him he was having difficulty speaking and left-sided weakness. EMS was called and he was brought here. Initial CT scan of the brain revealed no acute normalities. CT angiogram revealed no significant stenosis. No aneurysm. INR is 1.5. His case was reviewed with Dr. Carrillo the neurosurgeon on-call. He deemed the patient appropriate for tenecteplase which was given at approximately 3:00 this morning. The patient is seen in consultation in the emergency department. He is currently resting on a stretcher. Awake and alert in no acute distress. His speech is clear. He has some residual left-sided weakness. Chest x-ray shows moderate pulmonary vascular congestion. Trace left effusion. White count 3.0. Hemoglobin 12.5. Platelets 154. Sodium 143. Potassium 5.2. Bicarb 28. BUN 23. Creatinine 0.89. Glucose 116. Troponins negative x 3. He is maintaining good O2 saturations in the upper 90s on 2 L/min per nasal cannula. He is afebrile. Hemodynamically stable. The patient is seen today December 12, 2023 in the intensive care unit. He is currently sitting up in bed. Awake and alert in no acute distress. He is maintaining good O2 saturations in the 90s on 2 L/min per nasal cannula. Has been afebrile. Hemodynamically stable. Echocardiogram revealed reduced left ventricular systolic function with ejection fraction of 30 to 35%. Moderate aortic stenosis. X-ray of the left shoulder reveals severe AC joint OA and chronic full-thickness rotator cuff tear. Suspect mild rotator cuff arthroplasty. Follow-up brain CT reveals evolving right M48/M60 TANK DRIVER territory infarct with hypodensity and sulcal effacement. No midline shift hydrocephalus or intracranial hemorrhage at this time. White count 4.1. Hemoglobin 9.2. Platelets 125. Sodium 139. Potassium 4.4 port bicarb 28. BUN 16. Creatinine 0.81. Glucose 85. He is continued on aspirin. The patient's speech is somewhat slurred at times. Denies any weakness. Hand grasp are equal and strong. Objective - Vital Signs Vital signs: Vital Signs Temp 98.7 F 12/12/23 08:00 Pulse 78 12/12/23 11:00 Resp 27 H 12/12/23 11:00 BP 102/70 12/12/23 11:00 Pulse Ox 97 12/12/23 11:00 FiO2 Intake & Output 12/11/23 12/12/23 12/12/23 18:59 06:59 18:59 Intake Total 950 1000 230 Output Total 970 460 240 Balance -20 540 -10 Weight 83.8 kg 86.2 kg Intake: IV 30 1000 Invasive Line 1 30 Lactated Ringers 1,000 ml 1000 @ 999 mls/hr IV .Q1H1M ONE Rx#:[id number] Oral 920 230 Output: Urine 970 460 240 Other: Voiding Method Indwelling Catheter Indwelling Catheter Indwelling Catheter # Bowel Movements 0 - Exam GENERAL EXAM: Alert, 78-year-old male, on 2 L nasal cannula, comfortable in no apparent distress. HEAD: Normocephalic. Patient over left eye EYES: Normal reaction of pupils, equal size. NOSE: Clear with pink turbinates. THROAT: No erythema or exudates. NECK: No masses, no JVD. CHEST: No chest wall deformity. LUNGS: Equal air entry with bilateral scattered rhonchi more so on the right. CVS: S1 and S2 normal with no audible murmur, regular rhythm. ABDOMEN: No hepatosplenomegaly, normal bowel sounds, no guarding or rigidity. SPINE: No scoliosis or deformity SKIN: No rashes CENTRAL NERVOUS SYSTEM: Residual left-sided weakness, tone is normal in all 4 extremities. EXTREMITIES: Ecchymosis and edema of the left shoulder. There is no peripheral edema. No clubbing, no cyanosis. Peripheral pulses are intact. - Labs CBC & Chem 7: 12/12/23 11:07 12/12/23 05:19 Labs: Abnormal Lab Results - Last 24 Hours (Table) 12/12/23 12/12/23 12/12/23 Range/Units 05:19 05:19 11:07 WBC 3.7 L (3.8-10.6) k/uL RBC 2.51 L 2.68 L (4.30-5.90) m/uL Hgb 8.2 L D 9.2 L (13.0-17.5) gm/dL Hct 28.0 L 30.3 L (39.0-53.0) % MCV 111.3 H 113.1 H (80.0-100.0) fL MCHC 29.5 L 30.2 L (31.0-37.0) g/dL Plt Count 120 L 125 L (150-450) k/uL Macrocytosis Marked A Marked A Chloride 110 H (98-107) mmol/L Calcium 8.0 L (8.4-10.2) mg/dL Assessment and Plan Assessment: Acute CVA with left-sided weakness and expressive aphasia, status post tenecteplase at approximately 3 AM on 12/11/2023 with improvement. Follow-up CT scan of the brain revealed evolving right M48/M60 TANK DRIVER territory infarct with hypodensity in sulcal effacement. No midline shift, hydrocephalus or acute intracranial hemorrhage Acute hypoxemic respiratory failure secondary to above currently on 2 L nasal cannula, chest x-ray shows some pulmonary venous congestion and possible aspiration History of atrial fibrillation anticoagulated with warfarin, subtherapeutic with an INR of 1.5 Cardiomyopathy with impaired left ventricular systolic function and ejection fraction of 30 to 35% Moderate aortic stenosis History of chronic obstructive pulmonary disease Hypertension Hyperlipidemia Diabetes mellitus Gastroesophageal reflux disease History of prostate cancer with previous surgery History of throat cancer with surgery and chemoradiation in 2015 Plan: The patient was seen and evaluated CT scan of the brain, shoulder x-ray, labs and medications reviewed Evidence of right M48/M60 TANK DRIVER stroke Hemoglobin 9.2 in follow-up Titrate down the FiO2 as tolerated Lasix 40 mg IVP x 1 Follow-up chest x-ray in the a.m. We will continue to follow I have personally seen and examined the patient, performed the documentation and the assessment and plan as written. Number of minutes spent on the visit: 10.
[2023-12-12 13:53] LABS: Glucose,Whole Blood 177 mg/dL (70-110)
[2023-12-12] MEDS: METOCLOPRAMIDE 5 MG/ML 2 ML VIAL IVP PRN (13:59)
[2023-12-12] MEDS: LACTATED RINGERS 1,000 ML IV ONE (14:01)
[2023-12-12] MEDS: PANTOPRAZOLE 40 MG/10 ML VIAL IVP SCH (14:07)
[2023-12-12] MEDS: FUROSEMIDE 10 MG/ML 4 ML VIAL IV STA (14:43)
--- NOTE | 2023-12-12 15:45 | CT ---
EXAMINATION TYPE: CT brain wo con DATE OF EXAM: 12/12/2023 COMPARISON: Earlier today HISTORY: 78-year-old male persistent vomiting, admitted for TIA TECHNIQUE: Examination was done in axial plane without intravenous contrast. Coronal and sagittal r econstructions performed. CT DLP: 1255.4 mGycm Automated exposure control for dose reduction was used. FINDINGS: Redemonstrated involving acute infarct right FOOD AND DRUG RESEARCH SCIENTIST territory involving the right parietal lobe and post erior temporal lobe. Associated sulcal effacement. No acute intracranial hemorrhage seen. No midline shift or herniation. Prominent calvarial artifacts on the present exam. Atherosclerotic calcification s in the carotid siphons. No hydrocephalus. Scattered trace mucosal thickening in the paranasal sinuses. Mastoid air cells are well pneumatized. Orbits and globes are intact. Small area of suspected encephalomalacia posterior left parietal lobe relating to old infarct. Unchan ged. IMPRESSION: Redemonstrated evolving acute infarct right FOOD AND DRUG RESEARCH SCIENTIST territory. Overall similar appearance compared to ear lier today. No hemorrhagic transformation, midline shift, or herniation is seen.
[2023-12-12 17:32] LABS: ABG Base Excess 1.3 mmol/L; ABG HCO3 27 mmol/L (21-25); ABG Oxygen Saturation 96.9 % (94-97); ABG PCO2 46 mmHg (35-45); ABG PH 7.37 (7.35-7.45); ABG PO2 76 mmHg (83-108); ABG TCO2 28 mmol/L (19-24); Allen Test Performed? Yes
[2023-12-12] MEDS: ASPIRIN 325 MG TAB PO SCH (17:40)
--- NOTE | 2023-12-12 20:42 | P.PN ---
Subjective Progress Note Date: 12/12/23 Patient is a 78-year-old male came in with weakness on the left side of the body found to have stroke received tenecteplase. Patient has symptoms improved from 0/5 strength to 4/5 strength on the left side. Patient denies any speech problems. Patient had a CT angio of the head which showed complete occlusion of the M2 segment on the left side although his stroke is not explained by these findings. Patient does have history of chronic atrial fibrillation on anticoagulation with Coumadin patient is valvular A-fib and patient Coumadin is subtherapeutic on admission. Patient is far presently not receiving any antiplatelet therapy or anticoagulation because of tenecteplase this morning. Patient just had a chest x-ray which showed infiltrate bilaterally can be aspiration or can be congestive heart failure. Will obtain an proBNP procalcitonin was already ordered by pulmonology. Patient does not take any diuretics at home although echocardiogram showed normal ejection fraction with concentric left ventricular hypertrophy and patient can have diastolic function. Patient has multiple other medical problems including significant rash all over the body appears to be secondary to scratching. Patient is mildly elevated potassium levels and secondary to losartan he is taking. Patient blood pressure is low normal at this time. Patient denies any symptoms of dizziness denies any chest pain. Patient has significant EKG changes multiple ST-T wave changes appears not to be troponins are negative patient had a cardiac catheterization in the past and was told not a candidate for stenting does have coronary artery disease and will require medications for coronary disease. 12/12/2023 Patient is seen and evaluated in follow-up today continues to be in the ICU being followed by multiple medical consultations. Patient continues on 2 L via nasal cannula and reports does not wear oxygen outpatient. Patient is status post tenecteplase with neurology following closely scheduled to undergo MRI of the brain. Plan for repeat CT of the brain at this time. Patient awaiting cardiology evaluation as well. Patient is reporting some nausea with no relief from Zofran and will add Reglan and monitor closely. Recommend aspiration precautions as patient appears to be a high risk for this. Head of the bed elevated 30 to 45 degrees at all times. Anticoagulation currently on hold until repeat imaging is performed and neurology recommending aspirin. Patient does have a significant large hematoma noted on the left upper extremity and noticeable drop in hemoglobin. Will follow labs closely and monitor for any worsening of this hematoma. Review of systems: Constitutional: No reports of fatigue, fever, or chills Cardiovascular: No reports of chest pain or palpitations Respiratory: No reports of shortness of breath or cough GI: reports of nausea, reports vomiting, or diarrhea : No reports of dysuria or retention Neurovascular: reports of generalized weakness especially on the left side All medications have been reviewed PHYSICAL EXAMINATION: GENERAL: The patient is alert and oriented x3, appears slightly anxious elderly appearing, ill-appearing Well developed, well nourished. HEENT: Pupils are round and equally reacting to light. EOMI. No scleral icterus. No conjunctival pallor. Normocephalic, atraumatic. No pharyngeal erythema. No thyromegaly. CARDIOVASCULAR: S1, S2 are muffled, irregular. PULMONARY: Diminished breath sounds bilaterally with some faint crackles. ABDOMEN: Soft, nontender, nondistended, normoactive bowel sounds. No palpable organomegaly. MUSCULOSKELETAL: No joint swelling or deformity. EXTREMITIES: No cyanosis, clubbing, or pedal edema. NEUROLOGICAL: Strength is 4/5 in both left upper and lower extremities SKIN: Multiple scabs noted on entire body, likely secondary to flea bites. Pale Assessment and plan -Cerebrovascular accident involving the left side of the body and subcortical areas in the right cerebral hemisphere, hold off on antiplatelet therapy or anticoagulation temporarily because of the thrombolytic therapy patient received. Unsure whether patient can have an MRI because of her his recent back surgery with hardware in the back. 2D echo obtained and pending.. Patient passed swallow evaluation physical therapy and Occupational Therapy will evaluate the patient strongly recommend aspiration precautions with head of the bed elevated 30 to 45 degrees at all times -Left upper extremity hematoma status post fall -Acute blood loss anemia, secondary to above -Bilateral infiltrate, likely aspiration. -COPD without any acute exacerbation -Chronic atrial fibrillation with subtherapeutic INR -Hypertension: Patient is slightly hypotensive -Hyperlipidemia -Type 2 diabetes mellitus hold off pioglitazone, patient will be on sliding scale insulin History of prostate cancer and esophageal cancer for which patient received surgeries and chemoradiation Mild hyperkalemia secondary to losartan which is being held at this time DVT prophylaxis: Holding off pharmacological DVT prophylaxis as he is post thrombolytic therapy Plan: Patient is status post repeat CT showing evolving right SUPERVISOR CYTOLOGY territory infarct with hypodensity in the sulcal effacement with no midline shift, hydrocephalus or acute intracranial hemorrhage. Neurology following recommending initiating aspirin Cardiology consulted. Echo showing impaired left ventricular systolic dysfunction and EF of 30 to 35% Continue monitoring Accu-Cheks before meals and at bedtime and will continue sliding scale Patient having significant nausea and vomiting and Zofran not helping, will add Reglan as needed Drop in hemoglobin, with no active bleeding noted. Patient does have a noted large left upper extremity hematoma Will follow-up on repeat labs Await PT/OT therapy evaluation Patient has no code Due to multiple complex medical issues, overall prognosis is poor and guarded The impression and plan of care has been dictated by Sita Godoy, Nurse Practitioner as directed. Dr. Maged MD I have performed a history and examination and MDM of this patient, discussed the same with the dictator, and agree with the dictator's assessment and plan as written ,documented as a scribe. Based on total visit time, I have performed more than 50% of the visit. Objective - Vital Signs Vital signs: Vital Signs Temp 98.7 F 12/12/23 08:00 Pulse 75 12/12/23 08:00 Resp 22 12/12/23 08:00 BP 101/59 12/12/23 08:00 Pulse Ox 94 L 12/12/23 08:15 FiO2 Intake & Output 12/11/23 12/12/23 12/12/23 18:59 06:59 18:59 Intake Total 950 1000 230 Output Total 970 460 40 Balance -20 540 190 Weight 83.8 kg 86.2 kg Intake: IV 30 1000 Invasive Line 1 30 Lactated Ringers 1,000 ml 1000 @ 999 mls/hr IV .Q1H1M ONE Rx#:[id number] Oral 920 230 Output: Urine 970 460 40 Other: Voiding Method Indwelling Catheter Indwelling Catheter # Bowel Movements 0 - Labs CBC & Chem 7: 12/12/23 11:07 12/12/23 05:19 Labs: Abnormal Lab Results - Last 24 Hours (Table) 12/12/23 12/12/23 Range/Units 05:19 05:19 WBC 3.7 L (3.8-10.6) k/uL RBC 2.51 L (4.30-5.90) m/uL Hgb 8.2 L D (13.0-17.5) gm/dL Hct 28.0 L (39.0-53.0) % MCV 111.3 H (80.0-100.0) fL MCHC 29.5 L (31.0-37.0) g/dL Plt Count 120 L (150-450) k/uL Macrocytosis Marked A Chloride 110 H (98-107) mmol/L Calcium 8.0 L (8.4-10.2) mg/dL
[2023-12-12 22:42] LABS: Chol/HDL Ratio 1.98 Ratio; LDL Cholesterol,Calculated 33.8 mg/dL (0.0-131.0); VLDL Calculation 10.22 mg/dL (5.00-40.00)
[2023-12-13 05:31] LABS: Basophils % (A) 0 %; Eosinophils # (A) 0.2 k/uL (0-0.7); Eosinophils % (A) 5 %; HCT 28.5 % (39.0-53.0); HGB 8.7 gm/dL (13.0-17.5); Hypochromasia Marked; Lymphocytes # (A) 0.4 k/uL (1.0-4.8); Lymphocytes % (A) 13 %; MCH 33.3 pg (25.0-35.0); MCHC 30.4 g/dL (31.0-37.0); MCV 109.5 fL (80.0-100.0); Mean Platelet Volume 7.8; Monocytes # (A) 0.3 k/uL (0-1.0); Monocytes % (A) 10 %; Neutrophils # (A) 2.1 k/uL (1.3-7.7); Neutrophils % (A) 69 %; Platelet Count 128 k/uL (150-450); RDW 14.9 % (11.5-15.5)
[2023-12-13 05:46] LABS: African American GFR (CKD) 86 (>60 ml/min/1.73 sqM); Anion Gap -1 mmol/L; Blood Urea Nitrogen 20 mg/dL (9-20); Calcium 8.1 mg/dL (8.4-10.2); Carbon Dioxide 30 mmol/L (22-30); Chloride 109 mmol/L (98-107); Glucose 89 mg/dL (74-99); Magnesium 1.6 mg/dL (1.6-2.3); Non-African American GFR(CKD) 75 (>60 ml/min/1.73 sqM); Potassium 4.3 mmol/L (3.5-5.1); Sodium 138 mmol/L (137-145)
[2023-12-13 05:47] LABS: Macrocytosis Marked
[2023-12-13] MEDS: LACTATED RINGERS 1,000 ML IV ONE (08:30)
[2023-12-13] MEDS: MAGNESIUM SULFATE-D5W PMX 1 GM in DEXTROSE/WATER 1 100ML.BAG IVPB SCH (10:33)
--- NOTE | 2023-12-13 10:39 | P.PN ---
Subjective Progress Note Date: 12/13/23 I am following-up with patient and yesterday and early afternoon is seems the patient had the vomiting lasting for 45 minutes with some headache so therefore a stat CT was done which was negative for bleed. Patient feels drastically better today and no further nausea, vomiting or headache. He was started on aspirin 325 the milligrams daily yesterday. Objective - Vital Signs Vital signs: Vital Signs Temp 97.8 F 12/13/23 05:00 Pulse 73 12/13/23 10:00 Resp 24 12/13/23 10:00 BP 93/51 12/13/23 10:00 Pulse Ox 97 12/13/23 09:00 FiO2 Intake & Output 12/12/23 12/13/23 12/13/23 18:59 06:59 18:59 Intake Total 1510 1240 Output Total 735 1045 155 Balance 775 -1045 1085 Weight 86.2 kg 82.5 kg Intake: IV 1040 Invasive Line 2 20 Invasive Line 3 20 Lactated Ringers 1,000 ml 1000 @ 999 mls/hr IV .Q1H1M ONE Rx#:[id number] Intake, IV Titration 1000 Amount Lactated Ringers 1,000 ml 1000 @ 999 mls/hr IV .Q1H1M ONE Rx#:[id number] Oral 470 240 Output: Urine 735 1045 155 Other: Voiding Method Indwelling Catheter Indwelling Catheter Indwelling Catheter - Exam General: Lying in bed and is not in acute distress. HENT: Supple neck. Neuro: the patient is awake alert oriented to self, place and year. He stated the Month is December. Patient is following simple commands. No aphasia from limited language. Pupils are round equal reactive to light. The pupils are round to nose bilaterally. Visual villagomez Had a hard time because of cooperation. Extraocular movement had limitation and following commands but no appreciable nystagmus.. Normal facial sensation. No facial weakness. Patient is hypophonic and hoarse voice. Tongue is midline and moved [id number] without difficulty Motor: The strength is limited in the left upper extremity because of left shoulder pain otherwise is moving lowers above gravity symmetrically as well as strengthening for the right upper extremity is 5 out of 5. Left upper extremity is able to lift above gravity but limited because of pain. 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 Normal tone and bulk. Sensation: Normal to touch throughout. Cerebellar: Unable to perform because of pain. Reflex: 2+ throughout except ankles are 1+. Plantars: Mute bilaterally. Some of the work-up during this hospital visit consisted of: Lipid panel: TG 51, cholestrol 89, LDL 33, HDL 45. Initial CT which was negative for any acute stroke or bleed. CT angiography of the head and neck which showed severe focal stenosis of the left anterior M2 branch. Bilateral mild ICA stenosis. Mild right ICA stenosis from and stenosis. repeat CT of the head overnight since the patient had headache after the thrombolytic but there is no at the any acute or bleed noted on the repeat. Repeat CT head post 24 hour IV thrombolytic reported as evolving right WEBSITE OPTIMIZATION STRATEGIST ter ritory infarct with hypodensity and sulcal effacement. No midline shift, hydrocephalus or acute intracranial hemorrhage at this time. I personally reviewed CT and agree there is acute/subacute right WEBSITE OPTIMIZATION STRATEGIST stroke. Repeat CT head again yesterday in afternoon (since had vomiting with some headache): it is reported as a redemonstrated evolving acute infarct in the right WEBSITE OPTIMIZATION STRATEGIST territory. Overall similar appearance compared to earlier today. No hemorrhagic transformation, midline shift or herniation is seen. I personally reviewed the CT of the head and I agree with the report. 2D echo: Reported as increased LV mass with reduced LV systolic function 30-35%. Thickened aortic valve with moderate aortic stenosis - Labs CBC & Chem 7: 12/13/23 05:00 12/13/23 05:00 Labs: Abnormal Lab Results - Last 24 Hours (Table) 12/12/23 12/12/23 12/12/23 Range/Units 11:07 13:52 17:24 WBC (3.8-10.6) k/uL RBC 2.68 L (4.30-5.90) m/uL Hgb 9.2 L (13.0-17.5) gm/dL Hct 30.3 L (39.0-53.0) % MCV 113.1 H (80.0-100.0) fL MCHC 30.2 L (31.0-37.0) g/dL Plt Count 125 L (150-450) k/uL Lymphocytes # (1.0-4.8) k/uL Macrocytosis Marked A ABG pCO2 46 H (35-45) mmHg ABG pO2 76 L (83-108) mmHg ABG HCO3 27 H (21-25) mmol/L ABG Total CO2 28 H (19-24) mmol/L Chloride (98-107) mmol/L POC Glucose (mg/dL) 177 H (70-110) mg/dL Calcium (8.4-10.2) mg/dL 12/13/23 12/13/23 Range/Units 05:00 05:00 WBC 3.0 L (3.8-10.6) k/uL RBC 2.60 L (4.30-5.90) m/uL Hgb 8.7 L (13.0-17.5) gm/dL Hct 28.5 L (39.0-53.0) % MCV 109.5 H (80.0-100.0) fL MCHC 30.4 L (31.0-37.0) g/dL Plt Count 128 L (150-450) k/uL Lymphocytes # 0.4 L (1.0-4.8) k/uL Macrocytosis Marked A ABG pCO2 (35-45) mmHg ABG pO2 (83-108) mmHg ABG HCO3 (21-25) mmol/L ABG Total CO2 (19-24) mmol/L Chloride 109 H (98-107) mmol/L POC Glucose (mg/dL) (70-110) mg/dL Calcium 8.1 L (8.4-10.2) mg/dL Assessment and Plan Assessment: this is a 78-year-old gentleman with history of atrial fibrillation and is on Coumadin who presents because of speech difficulty and left sided weakness that is noted at 12am today. Last normal was 2 hours prior to that. His INR is subtherapeutic of 1.5 and per his coumadin dose was being adjusted at times subtherapeutic and at times subtherapeutic. He received IV thrombolytic. Acute ischemic stroke over the WEBSITE OPTIMIZATION STRATEGIST (presented with left sided weakness and speech difficulty. Had hard time assessing peripheral because of cooperation.) post IV thrombolytic. Symptoms improving. Etiology of stroke is likely cardioembolic due to hx of A-fib with subtherapeutic INR. Reported Severe left M2 severe stenosis and I personally reviewed it and felt more distal than M2 Anemia with drop of hemoglobin from 12 to 8. Patient has left arm hematoma from fall. History of atrial fibrillation on coumadin with subtherapeutic INR on presentation DM Neuropathy Chronic lower back pain and had surgery a year ago Plan: Patient is started on ASA 325mg daily and started yesterday. Coumadin is held since acute stroke to avoid hemorrhagic conversion and his anemia. Can resume Coumadin tomorrow if anemia is improved and felt safe from primary team's perspective. patient is on Lipitor 40 mg daily at bedtime and that's his home medication. Pending MRI Brain 2-D echo reported as increased left venticular mass. Therefore recommend consulting cardiology team. continue her checks Cardiac monitoring PT OT and TANK WAGON DRIVER are consulted recommend the systolic blood pressure to be less than 180 and diastolic blood pressure to be less than the 105 for IV thrombolytic protocol. We'll defer the rest of the medical management the primary and other specialists for DVT prophylaxis: I started subq heparin 5000U every 12 hours starting tonight. If anemia is worse then recommend holding The plan discussed with the patient and ICU nurse. Dr. Arizmendi will resume neurology service tomorrow A.M. Time with Patient: Less than 30
--- NOTE | 2023-12-13 12:02 | CONS ---
ZAIRA Gordon is a 78-year-old gentleman with history of permanent atrial fibrillation, hypertension, dyslipidemia, who is admitted to hospital following a CVA. His symptoms were in the form of left-sided weakness. He received thrombolytic therapy with significant improvement in his symptoms. A CT angiogram revealed complete occlusion of the M2 segment of the middle cerebral artery. He has history of permanent atrial fibrillation, was on Coumadin and subtherapeutically anticoagulated with an INR of 1.5. We have been consulted because of an abnormal echocardiogram. Echo revealed cardiomyopathy with moderate LV dysfunction and left ventricular hypertrophy. At the time of my evaluation this morning, patient appears comfortable at rest. Neurological deficit is improving. We should consider switching the patient to Eliquis or Xarelto on discharge as he had a stroke with subtherapeutic anticoagulation with Coumadin. Will resume the anticoagulant whenever the neurologist okays it. PAST MEDICAL HISTORY: Significant for permanent atrial fibrillation, cardiomyopathy, and chronic systolic heart failure, dyslipidemia. MEDICATIONS: At home included Coumadin, Flomax, Actos, Cozaar, Lipitor, and aspirin. ALLERGIES: To latex, adhesive tape, . FAMILY HISTORY: Negative for premature coronary artery disease. SOCIAL HISTORY: Negative for current smoking, EtOH abuse, or drug abuse. REVIEW OF SYSTEMS: 14 out of 14 review of systems has been performed. Pertinent set as documented. PHYSICAL EXAMINATION: GENERAL: Comfortable at rest. VITAL SIGNS: Heart rate is 70 beats per minute. Blood pressure is 112/82. Respiratory rate is 18. O2 saturation is 94%. NECK: There is no jugular venous distention. CHEST: Reveals good air entry bilaterally. HEART: Reveals first and second heart sounds. Grade 2/6 ejection systolic murmur at the right parasternal border. ABDOMEN: Soft. EXTREMITIES: Did not reveal any edema. Peripheral pulses are felt. LABS: Show potassium of 4.3, creatinine 0.9, hemoglobin is 8.7. Echocardiogram showed an ejection fraction of 30-35% with moderate pulmonary hypertension and left ventricular hypertrophy. Left atrium appears severely enlarged. There is moderate aortic stenosis noted. ASSESSMENT AND PLAN: 1. CVA secondary to subtherapeutic anticoagulation in a patient with atrial fibrillation. 2. Moderate aortic stenosis. 3. Cardiomyopathy with moderate LV systolic dysfunction. 4. Permanent atrial fibrillation with controlled ventricular rate. PLAN: Start the patient on Eliquis whenever Neurology okays anticoagulation. MMODL / IJN: [id number] /
--- NOTE | 2023-12-13 12:20 | P.PN ---
Subjective Progress Note Date: 12/13/23 This is a 78-year-old male patient with a known history of chronic obstructive pulmonary disease, diabetes mellitus, gastroesophageal reflux disease, hyperlipidemia, hypertension, throat cancer with previous chemo and radiation in 2016 atrial fibrillation anticoagulated with warfarin. Last night he went to bed around midnight in his normal state of health and approximately an hour later he had gotten up to go to the bathroom and fell to the floor and his checked on him he was having difficulty speaking and left-sided weakness. EMS was called and he was brought here. Initial CT scan of the brain revealed no acute normalities. CT angiogram revealed no significant stenosis. No aneurysm. INR is 1.5. His case was reviewed with Dr. Carrillo the neurosurgeon on-call. He deemed the patient appropriate for tenecteplase which was given at approximately 3:00 this morning. The patient is seen in consultation in the emergency department. He is currently resting on a stretcher. Awake and alert in no acute distress. His speech is clear. He has some residual left-sided weakness. Chest x-ray shows moderate pulmonary vascular congestion. Trace left effusion. White count 3.0. Hemoglobin 12.5. Platelets 154. Sodium 143. Potassium 5.2. Bicarb 28. BUN 23. Creatinine 0.89. Glucose 116. Troponins negative x 3. He is maintaining good O2 saturations in the upper 90s on 2 L/min per nasal cannula. He is afebrile. Hemodynamically stable. The patient is seen today December 12, 2023 in the intensive care unit. He is currently sitting up in bed. Awake and alert in no acute distress. He is maintaining good O2 saturations in the 90s on 2 L/min per nasal cannula. Has been afebrile. Hemodynamically stable. Echocardiogram revealed reduced left ventricular systolic function with ejection fraction of 30 to 35%. Moderate aortic stenosis. X-ray of the left shoulder reveals severe AC joint OA and chronic full-thickness rotator cuff tear. Suspect mild rotator cuff arthroplasty. Follow-up brain CT reveals evolving right VIDEO AND SOUND RECORDER territory infarct with hypodensity and sulcal effacement. No midline shift hydrocephalus or intracranial hemorrhage at this time. White count 4.1. Hemoglobin 9.2. Platelets 125. Sodium 139. Potassium 4.4 port bicarb 28. BUN 16. Creatinine 0.81. Glucose 85. He is continued on aspirin. The patient's speech is somewhat slurred at times. Denies any weakness. Hand grasp are equal and strong. The patient is seen today December 13, 2023 in follow-up in the intensive care unit. He is currently resting in bed. Awake and alert in no acute distress. He is maintaining O2 saturations in the 90s on 2 L/min per nasal cannula. His blood pressure has been on the low side. He is receiving lactated ringer bolus currently. White count 128. Sodium 138. Potassium 4.3. Bicarb 30. BUN 20. Creatinine 0.98. Glucose 89. Currently in a negative 270 mL balance. Remains on heparin for DVT prophylaxis. Chest x-ray continues to show evidence of fluid volume overload. He did receive Lasix yesterday. He remains somewhat hypotensive. Objective - Vital Signs Vital signs: Vital Signs Temp 97.8 F 12/13/23 05:00 Pulse 71 12/13/23 11:00 Resp 16 12/13/23 11:00 BP 113/73 12/13/23 11:00 Pulse Ox 100 12/13/23 11:00 FiO2 Intake & Output 12/12/23 12/13/23 12/13/23 18:59 06:59 18:59 Intake Total 1510 1240 Output Total 735 1045 175 Balance 775 -1045 1065 Weight 86.2 kg 82.5 kg Intake: IV 1040 Invasive Line 2 20 Invasive Line 3 20 Lactated Ringers 1,000 ml 1000 @ 999 mls/hr IV .Q1H1M ONE Rx#:[id number] Intake, IV Titration 1000 Amount Lactated Ringers 1,000 ml 1000 @ 999 mls/hr IV .Q1H1M ONE Rx#:[id number] Oral 470 240 Output: Urine 735 1045 175 Other: Voiding Method Indwelling Catheter Indwelling Catheter Indwelling Catheter - Exam GENERAL EXAM: Alert, 78-year-old male, on 2 L nasal cannula, comfortable in no apparent distress. HEAD: Normocephalic. Patient over left eye EYES: Normal reaction of pupils, equal size. NOSE: Clear with pink turbinates. THROAT: No erythema or exudates. NECK: No masses, no JVD. CHEST: No chest wall deformity. LUNGS: Equal air entry with bilateral scattered rhonchi more so on the right. CVS: S1 and S2 normal with no audible murmur, regular rhythm. ABDOMEN: No hepatosplenomegaly, normal bowel sounds, no guarding or rigidity. SPINE: No scoliosis or deformity SKIN: No rashes CENTRAL NERVOUS SYSTEM: Residual left-sided weakness, tone is normal in all 4 extremities. EXTREMITIES: Ecchymosis and edema of the left shoulder. There is no peripheral edema. No clubbing, no cyanosis. Peripheral pulses are intact. - Labs CBC & Chem 7: 12/13/23 05:00 12/13/23 05:00 Labs: Abnormal Lab Results - Last 24 Hours (Table) 12/12/23 12/12/23 12/13/23 Range/Units 13:52 17:24 05:00 WBC 3.0 L (3.8-10.6) k/uL RBC 2.60 L (4.30-5.90) m/uL Hgb 8.7 L (13.0-17.5) gm/dL Hct 28.5 L (39.0-53.0) % MCV 109.5 H (80.0-100.0) fL MCHC 30.4 L (31.0-37.0) g/dL Plt Count 128 L (150-450) k/uL Lymphocytes # 0.4 L (1.0-4.8) k/uL Macrocytosis Marked A ABG pCO2 46 H (35-45) mmHg ABG pO2 76 L (83-108) mmHg ABG HCO3 27 H (21-25) mmol/L ABG Total CO2 28 H (19-24) mmol/L Chloride (98-107) mmol/L POC Glucose (mg/dL) 177 H (70-110) mg/dL Calcium (8.4-10.2) mg/dL 12/13/23 Range/Units 05:00 WBC (3.8-10.6) k/uL RBC (4.30-5.90) m/uL Hgb (13.0-17.5) gm/dL Hct (39.0-53.0) % MCV (80.0-100.0) fL MCHC (31.0-37.0) g/dL Plt Count (150-450) k/uL Lymphocytes # (1.0-4.8) k/uL Macrocytosis ABG pCO2 (35-45) mmHg ABG pO2 (83-108) mmHg ABG HCO3 (21-25) mmol/L ABG Total CO2 (19-24) mmol/L Chloride 109 H (98-107) mmol/L POC Glucose (mg/dL) (70-110) mg/dL Calcium 8.1 L (8.4-10.2) mg/dL Assessment and Plan Assessment: Acute CVA with left-sided weakness and expressive aphasia, status post tenecteplase at approximately 3 AM on 12/11/2023 with improvement. Follow-up CT scan of the brain revealed evolving right VIDEO AND SOUND RECORDER territory infarct with hypodensity in sulcal effacement. No midline shift, hydrocephalus or acute intracranial hemorrhage Acute hypoxemic respiratory failure secondary to above currently on 2 L nasal cannula, chest x-ray shows some pulmonary venous congestion and possible aspiration History of atrial fibrillation anticoagulated with warfarin, subtherapeutic with an INR of 1.5 Cardiomyopathy with impaired left ventricular systolic function and ejection fraction of 30 to 35% Moderate aortic stenosis History of chronic obstructive pulmonary disease Hypertension Hyperlipidemia Diabetes mellitus Gastroesophageal reflux disease History of prostate cancer with previous surgery History of throat cancer with surgery and chemoradiation in 2015 Plan: The patient was seen and evaluated Chest x-ray, labs and medications reviewed Somewhat hypotensive this morning Received additional 1 L fluid bolus Titrate down the FiO2 as tolerated We will continue to follow I have personally seen and examined the patient, performed the documentation and the assessment and plan as written. Number of minutes spent on the visit: 10.
--- NOTE | 2023-12-13 13:44 | P.PN ---
Subjective Progress Note Date: 12/13/23 * 78-year-old male came in with weakness on the left side of the body found to have stroke received tenecteplase. Patient has symptoms improved from 0/5 strength to 4/5 strength on the left side. * Patient had a CT angio of the head which showed complete occlusion of the M2 segment on the left side although his stroke is not explained by these findings. Patient does have history of chronic atrial fibrillation on anticoagulation with Coumadin patient is valvular A-fib and patient Coumadin is subtherapeutic on admission. Patient just had a chest x-ray which showed infiltrate bilaterally can be aspiration or can be congestive heart failure. Patient has multiple other medical problems including significant rash all over the body appears to be secondary to scratching. * Patient has significant EKG changes multiple ST-T wave changes appears not to be troponins are negative patient had a cardiac catheterization in the past and was told not a candidate for stenting does have coronary artery disease and will require medications for coronary disease. * 12/13/23 : Patient seen and evaluated in medical ICU, blood work reviewed hemoglobin 8.7, WBC 3, platelet 128. Serum chemistry sodium 138 potassium 4.3 calcium 8.1 magnesium 1.6. Magnesium has been replaced, left arm weakness have improved. Family at bedside all questions answered PHYSICAL EXAMINATION: GENERAL: The patient is alert and oriented x3, ill appearance HEENT: Pupils are round and equally reacting to light. EOMI. CARDIOVASCULAR: S1 and S2 present. No murmurs, rubs, or gallops. PULMONARY: Chest is clear to auscultation, no wheezing or crackles. ABDOMEN: Soft, nontender, nondistended, normoactive bowel sounds. No palpable organomegaly. MUSCULOSKELETAL: No joint swelling or deformity. EXTREMITIES: No cyanosis, clubbing, or pedal edema. NEUROLOGICAL: Left-sided weakness, motor senses 4 x 5 left upper extremity, range of motion limited left shoulder, right-sided strength is 5 x 5 right upper and lower extremity SKIN: No rashes. Assessment and plan * Acute CVA with left-sided weakness and expressive aphasia s/p TNK 12/11/23 3 AM * CVA involving right [employer] territory CT angiography of the head and neck which showed severe focal stenosis of the left anterior M2 branch. Bilateral mild ICA stenosis. Mild right ICA stenosis from and stenosis. * Acute exacerbation of congestive heart failure systolic dysfunction ejection fraction of 30 to 35% * History of atrial fibrillation with anticoagulation with Coumadin prior to admission * COPD * Hypertension * Hyperlipidemia * History of prostate cancer with surgery * History of throat cancer with surgery and chemo * In regards to acute CVA patient is s/p TNK, continue aspirin, Lipitor, MRI brain ordered, neurology following * In regards to acute exacerbation of CHF caution with excessive hydration, continue patient on as needed IV Lasix cardiology following * In regards to dyslipidemia continue patient on Lipitor * Anticoagulation for atrial fibrillation to be initiated once cleared by neurology * Will need physical therapy Occupational Therapy and speech therapy evaluation Objective - Vital Signs Vital signs: Vital Signs Temp 97.8 F 12/13/23 05:00 Pulse 76 12/13/23 09:00 Resp 21 12/13/23 09:00 BP 93/51 12/13/23 09:10 Pulse Ox 97 12/13/23 09:00 FiO2 Intake & Output 12/12/23 12/13/23 12/13/23 18:59 06:59 18:59 Intake Total 1510 1240 Output Total 735 1045 100 Balance 775 -1045 1140 Weight 86.2 kg 82.5 kg Intake: IV 1040 Invasive Line 2 20 Invasive Line 3 20 Lactated Ringers 1,000 ml 1000 @ 999 mls/hr IV .Q1H1M ONE Rx#:[id number] Intake, IV Titration 1000 Amount Lactated Ringers 1,000 ml 1000 @ 999 mls/hr IV .Q1H1M ONE Rx#:[id number] Oral 470 240 Output: Urine 735 1045 100 Other: Voiding Method Indwelling Catheter Indwelling Catheter - Labs CBC & Chem 7: 12/13/23 05:00 12/13/23 05:00 Labs: Abnormal Lab Results - Last 24 Hours (Table) 12/12/23 12/12/23 12/12/23 Range/Units 11:07 13:52 17:24 WBC (3.8-10.6) k/uL RBC 2.68 L (4.30-5.90) m/uL Hgb 9.2 L (13.0-17.5) gm/dL Hct 30.3 L (39.0-53.0) % MCV 113.1 H (80.0-100.0) fL MCHC 30.2 L (31.0-37.0) g/dL Plt Count 125 L (150-450) k/uL Lymphocytes # (1.0-4.8) k/uL Macrocytosis Marked A ABG pCO2 46 H (35-45) mmHg ABG pO2 76 L (83-108) mmHg ABG HCO3 27 H (21-25) mmol/L ABG Total CO2 28 H (19-24) mmol/L Chloride (98-107) mmol/L POC Glucose (mg/dL) 177 H (70-110) mg/dL Calcium (8.4-10.2) mg/dL 12/13/23 12/13/23 Range/Units 05:00 05:00 WBC 3.0 L (3.8-10.6) k/uL RBC 2.60 L (4.30-5.90) m/uL Hgb 8.7 L (13.0-17.5) gm/dL Hct 28.5 L (39.0-53.0) % MCV 109.5 H (80.0-100.0) fL MCHC 30.4 L (31.0-37.0) g/dL Plt Count 128 L (150-450) k/uL Lymphocytes # 0.4 L (1.0-4.8) k/uL Macrocytosis Marked A ABG pCO2 (35-45) mmHg ABG pO2 (83-108) mmHg ABG HCO3 (21-25) mmol/L ABG Total CO2 (19-24) mmol/L Chloride 109 H (98-107) mmol/L POC Glucose (mg/dL) (70-110) mg/dL Calcium 8.1 L (8.4-10.2) mg/dL
--- NOTE | 2023-12-13 14:20 | P.CNOR ---
History of Present Illness - [facility] Consult date: 12/13/23 Requesting physician: Vivienne Barahona Consult reason: other (Recent surgery) History of present illness: Patient is a 78-year-old male who presents to the emergency department a few days ago with chief complaint of weakness on the left side. It was found patient had a stroke. Patient has a past medical history significant for chronic atrial fibrillation on anticoagulation with Coumadin. Orthopedics was consulted due to recent surgery. Dr. Lomeli did perform surgery on 09/28/2023 for open treatment L1-L2 fracture with T12-L4 posterior lateral instrumented fusion. Patient was seen at bedside this morning sitting up in chair with legs elevated and Alcaraz in place in the ICU. Family members were present during encounter. Patient states he is doing very well in regards to his spine. Patient is not complaining of any pain to the back at this time. Patient has no complaints of the incision. Patient's says they last saw Dr. Lomeli within the past few weeks in office. Patient's says prior to him falling at home and coming to the hospital he was doing therapy and it has been going well. Brace is at bedside and patient says he has been using brace when getting up. Patient denies any orthopedic complaints at this time. 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 "ENLARGED HEART VALVES" PER PATIENT. HX OF PROSTATE CANCER WITH SURGERY, HX OF THROAT CANCER WITH SURGERY-CHEMO AND RADIATION (2015), LOW IRON. HOONAH History of Any Multi-Drug Resistant Organisms: None Reported Past Surgical History: Orthopedic Surgery, Prostate Surgery Additional Past Surgical History / Comment(s): RIGHT SHOULDER X2, EGD'S, COLONOSCOPIES, MICAH CATARACTS, PATIENT STATES ESOPHAGUS REMOVED AND STOMACH USED. PROSTATE SX FOR CANCER, COLONOSCOPY, EGD, osteomylitis spine, L1-L2 fx, T11-L4 stabilization with cage placement. 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 Medications and Allergies Home Medications Medication Instructions Recorded Confirmed Type Omeprazole 20 mg PO DAILY 05/25/18 12/11/23 History Multivitamins, Thera [Multivitamin 1 tab PO DAILY 09/26/19 12/11/23 History (formulary)] Cholecalciferol [Vitamin D3 (25 25 mcg PO DAILY 10/04/21 12/11/23 History Mcg = 1000 Iu)] Cyanocobalamin (Vitamin B-12) 1,000 mcg PO DAILY 10/04/21 12/11/23 History [Vitamin B-12] rOPINIRole HCL [Requip] 0.5 mg PO HS 07/03/22 12/11/23 History Carboxymethylcellulose Sodium 1 drop LEFT EYE HS 11/25/22 12/11/23 History [Thera Tears] Latanoprost/Pf [Latanoprost 0.005% 1 drop RIGHT EYE HS 11/25/22 12/11/23 History Eye Drop] Tamsulosin [Flomax] 0.4 mg PO DAILY 7 Days #7 cap 12/27/22 12/11/23 Rx Sodium Bicarbonate Tab 650 mg PO BID #60 tab 01/02/23 12/11/23 Rx Aspirin EC [Ecotrin Low Dose] 81 mg PO HS 01/16/23 12/11/23 History Potassium Chloride [Klor-Con M20] 20 meq PO DAILY@0700 01/16/23 12/11/23 History L.acidoph,Paracasei, B.lactis 1 cap PO DAILY 09/22/23 12/11/23 History [Probiotic] Losartan [Cozaar] 25 mg PO HS 09/22/23 12/11/23 History Metoprolol Succinate [Metoprolol 25 mg PO DAILY 09/22/23 12/11/23 History Succinate ER] Warfarin [Coumadin] 7.5 mg PO SUTUTH@2100 09/22/23 12/11/23 History Cyclobenzaprine [Flexeril] 5 mg PO TID PRN #30 tablet 10/01/23 12/11/23 Rx HYDROcodone/APAP 10-325MG [[place] 1 tab PO Q4-6H PRN #40 tab 10/01/23 12/11/23 Rx 10-325] Warfarin [Coumadin] 5 mg PO MOWEFRSA@2100 10/01/23 12/11/23 History cefaDROXiL [Duricef] 500 mg PO Q12HR #10 cap 10/01/23 12/11/23 Rx Atorvastatin [Lipitor] 40 mg PO HS 12/11/23 12/11/23 History EPINEPHrine (Auto Inject) [Epipen] 0.3 mg IM ONCE PRN 12/11/23 12/11/23 History Ferrous Sulfate [Feosol] 325 mg PO DAILY 12/11/23 12/11/23 History Gabapentin 300 mg PO HS 12/11/23 12/11/23 History Ondansetron Odt [Zofran Odt] 4 mg PO DAILY PRN 12/11/23 12/11/23 History Pioglitazone [Actos] 15 mg PO DAILY 12/11/23 12/11/23 History Sennosides/Docusate Sodium [Senna 1 cap PO DAILY PRN 12/11/23 12/11/23 History Plus 8.6-50 mg Softgel] Allergies Allergy/AdvReac Type Severity Reaction Status Date / Time bee venom protein (honey bee) Allergy Severe Anaphylaxis Verified 09/28/23 07:19 latex Allergy Unknown Rash/Hives Verified 09/28/23 07:19 adhesive tape Allergy Unknown-Per Verified 09/28/23 07:19 Dr Dickens's office Physical Examination Incision appears to be well-healed over there thoracolumbar spine. Negative for any drainage. Negative for any erythema. Negative for any open wounds. Negative for any open fractures. Sensation is equal, symmetric, bilateral intact. Nontender to palpation throughout cervical, thoracic and lumbar spines. Nontender to palpation throughout the paravertebral regions as well. Patient does have some residual weakness in the left side from stroke. Patient does have good strength to the right upper and right lower extremity. Radial pulse intact, 2+ bilaterally. Cap refill under 3 seconds in digits of upper extremities. Negative Homans bilaterally. Negative clonus bilaterally. Neg ative Deven bilaterally. Results - Labs Labs: Abnormal Lab Results - Last 24 Hours (Table) 12/12/23 12/12/23 12/13/23 Range/Units 13:52 17:24 05:00 WBC 3.0 L (3.8-10.6) k/uL RBC 2.60 L (4.30-5.90) m/uL Hgb 8.7 L (13.0-17.5) gm/dL Hct 28.5 L (39.0-53.0) % MCV 109.5 H (80.0-100.0) fL MCHC 30.4 L (31.0-37.0) g/dL Plt Count 128 L (150-450) k/uL Lymphocytes # 0.4 L (1.0-4.8) k/uL Macrocytosis Marked A ABG pCO2 46 H (35-45) mmHg ABG pO2 76 L (83-108) mmHg ABG HCO3 27 H (21-25) mmol/L ABG Total CO2 28 H (19-24) mmol/L Chloride (98-107) mmol/L POC Glucose (mg/dL) 177 H (70-110) mg/dL Calcium (8.4-10.2) mg/dL 12/13/23 Range/Units 05:00 WBC (3.8-10.6) k/uL RBC (4.30-5.90) m/uL Hgb (13.0-17.5) gm/dL Hct (39.0-53.0) % MCV (80.0-100.0) fL MCHC (31.0-37.0) g/dL Plt Count (150-450) k/uL Lymphocytes # (1.0-4.8) k/uL Macrocytosis ABG pCO2 (35-45) mmHg ABG pO2 (83-108) mmHg ABG HCO3 (21-25) mmol/L ABG Total CO2 (19-24) mmol/L Chloride 109 H (98-107) mmol/L POC Glucose (mg/dL) (70-110) mg/dL Calcium 8.1 L (8.4-10.2) mg/dL H & H 12/11/23 12/12/23 12/12/23 Range/Units 01:14 05:19 11:07 Hgb 12.5 L 8.2 L D 9.2 L (13.0-17.5) gm/dL Hct 41.6 28.0 L 30.3 L (39.0-53.0) % 12/13/23 Range/Units 05:00 Hgb 8.7 L (13.0-17.5) gm/dL Hct 28.5 L (39.0-53.0) % Coagulation 12/11/23 Range/Units 01:14 INR 1.5 H (<1.2) Result Diagrams: 12/13/23 05:00 12/13/23 05:00 Assessment and Plan Assessment: 1. History of recent treatment of L1-L2 fracture with T12-L4 posterior lateral instrumented fusion Plan: 1. History of recent treatment of L1-L2 fracture with T12-L4 posterior lateral instrumented fusion -patient at bedside this morning in the ICU. Patient presents with no pain to the spine on exam. X-ray of the thoracic and lumbar spine will be ordered for evaluation of hardware placement. Pain medication as needed. Weightbearing as tolerated with walker and assistance. TLSO brace on while up and about. At this time we are not recommending any orthopedic surgical intervention. Continue conservative measures. We will continue to be available as needed to see patient during his stay in the hospital. 2. Appreciate medical management and other specialty recommendations 3. Pain management -[place]; Tylenol; gabapentin 4. DVT prophylaxis -heparin; aspirin 5. GI prophylaxis -Protonix; senna 6. PT/OT -weightbearing as tolerated with walker and brace on while up and about 7. Encourage incentive spirometer use 8. Appreciate consult Time with Patient: Less than 30
[2023-12-13] MEDS: NOREPINEPHRINE 4 MG in SODIUM CHLORIDE 0.9% 250 ML IV SCH (15:46)
--- NOTE | 2023-12-13 15:59 | XR ---
EXAM: XR chest 1V portable CLINICAL INDICATION:Male, 78 years old with history of CHF; [facility] COMPARISON: 12/11/2023 TECHNIQUE: Chest single view. FINDINGS: Cardiomegaly and central vascular congestion appear similar. There is slightly decreased bilateral pe rihilar infiltrates. There are slightly increased bibasilar pleural-parenchymal opacities. No visible pneumothorax. Osseous structures appear grossly unchanged as seen. Reverse glenohumeral arthroplasty again noted. F usion hardware in the lumbar spine. IMPRESSION: 1. Cardiomegaly and central vascular congestion, similar to prior. 2. Slightly decreased bilateral perihilar infiltrates may represent improving edema. 3. Slightly increased bibasilar pleural-parenchymal opacities, suggesting effusions and/or atelectas is/airspace disease.
--- NOTE | 2023-12-13 17:08 | XR ---
EXAMINATION TYPE: XR thoracic spine 2V, XR lumbar spine 2 or 3V DATE OF EXAM: 12/13/2023 4:51 PM CLINICAL INDICATION:Male, 78 years old with history of pain; COMPARISON: CT 09/28/2023 TECHNIQUE: XR thoracic spine 2V, XR lumbar spine 2 or 3V views of the spine in Frontal and lateral pr ojections. FINDINGS: There may be new mild wedging of the L5 vertebrae when compared to prior CT. Fixation hardware in the lumbar spine appears intact. Kyphoplasty changes at L4 and T12 are present. There is scattered multi level disk space narrowing without loss of vertebral body height. There is normal alignment of the th oracic vertebral bodies. Scattered osteophyte formation along the anterior and lateral aspects of the vertebral bodies. Neural foramen are patent given limitations of this exam. Spinal canal appears pat ent. IMPRESSION: 1. Questionable mild increased wedging of the L5 vertebral body. Further evaluation with CT imaging may be of benefit to rule out new fracture in the setting of recent fall. 2. Post surgical changes spine with hardware intact. No new acute fractures definitively visualized. 3. Moderate degeneration changes throughout the spine.
[2023-12-13] MEDS: HEPARIN SODIUM,PORCINE 5,000 UNIT/ML 1 ML VIAL SQ SCH (20:19)
[2023-12-14 05:53] LABS: HGB 8.2 gm/dL (13.0-17.5); Hypochromasia Moderate; MCH 33.2 pg (25.0-35.0); MCHC 30.3 g/dL (31.0-37.0); MCV 109.4 fL (80.0-100.0); Macrocytosis Marked; Mean Platelet Volume 8.3; Platelet Count 117 k/uL (150-450); RBC 2.47 m/uL (4.30-5.90); RDW 15.1 % (11.5-15.5); WBC 2.9 k/uL (3.8-10.6)
[2023-12-14 07:05] LABS: African American GFR (CKD) >90 (>60 ml/min/1.73 sqM); Anion Gap 2 mmol/L; Blood Urea Nitrogen 18 mg/dL (9-20); Calcium 8.1 mg/dL (8.4-10.2); Carbon Dioxide 28 mmol/L (22-30); Chloride 106 mmol/L (98-107); Glucose 89 mg/dL (74-99); Non-African American GFR(CKD) 87 (>60 ml/min/1.73 sqM); Potassium 4.3 mmol/L (3.5-5.1); Sodium 136 mmol/L (137-145)
--- NOTE | 2023-12-14 08:18 | P.PN ---
Subjective Progress Note Date: 12/14/23 PROGRESS NOTE The patient is a 78-year-old male with a known history of chronic persistent atrial fibrillation history of aortic valve disease who presented with CVA, post thrombolytics. He is feeling well this morning. He denies any chest discomfort. He denies any dizziness or palpitations. He continues to be in atrial fibrillation with controlled ventricular response. He has a history of aortic stenosis and was found to have cardiomyopathy of unknown duration or etiology. He is followed by cardiology in another facility. His INR was subtherapeutic on presentation. He has a history of hypertension and hyperlipidemia. His echocardiogram showed an ejection fraction of 30 to 35% with at least moderate aortic stenosis Medications: Aspirin, Lipitor 40 mg daily, subcu heparin, metoprolol succinate 25 mg daily, Protonix, ropinirole, Flomax. PHYSICAL EXAMINATION: Blood pressure 125/80 heart rate 70 LUNGS: Clear to auscultation HEART: Irregular rate and rhythm, S1, S2. No S3. Systolic ejection murmur 10/20 ABDOMEN: Soft, nontender, no organomegaly EXTREMETIES: No edema, ecchymosis on the right arm LAB: Hemoglobin 8.2, white blood cell 2.9, platelets 117, potassium 4.3, BUN 18, creatinine 0.80 IMPRESSION: 1. Status post CVA and thrombolytics with recovery 2. Chronic persistent atrial fibrillation, was subtherapeutic on Coumadin on presentation 3. Aortic stenosis at least moderate 4. Cardiomyopathy of unknown duration or etiology 5. Anemia 6. Hyperlipidemia PLAN: 1. Initiate treatment with Eliquis 5 mg twice a day when acceptable with neurology and stop subcu heparin 2. Follow blood pressure and if stable add AMALIA inhibitor 3. Add Farxiga 4. Follow hemoglobin 5. The patient would require to follow-up with his primary pipe maker regarding the aortic stenosis. The gradient may be underestimated because of the cardiomyopathy Objective - Vital Signs Vital signs: Vital Signs Temp 98.5 F 12/13/23 23:30 Pulse 72 12/14/23 07:00 Resp 17 12/14/23 07:00 BP 125/86 12/14/23 07:00 Pulse Ox 95 12/14/23 07:00 FiO2 Intake & Output 12/13/23 12/14/23 12/14/23 18:59 06:59 18:59 Intake Total 2216.788 63.529 Output Total 315 395 0 Balance 1901.788 -331.471 0 Weight 86.4 kg Intake: IV 30 0.9 KVO @ 10 mls/hr 30 Intake, IV Titration 1256.788 33.529 Amount Lactated Ringers 1,000 ml 1000 @ 999 mls/hr IV .Q1H1M ONE Rx#:[id number] Magnesium Sulfate-D5w Pmx 200 1 gm In Dextrose/Water 1 100ml.bag @ 100 mls/hr IVPB Q1H R[facility]TA Rx#: [id number] Norepinephrine 4 mg In 56.788 33.529 Sodium Chloride 0.9% 250 ml @ 0.03 MCG/KG/MIN 9.43 mls/hr IV .Q24H R[facility]ETTA Rx#: [id number] Oral 960 Output: Urine 315 395 0 Other: Voiding Method Indwelling Catheter Indwelling Catheter - Labs CBC & Chem 7: 12/14/23 05:32 12/14/23 05:32 Labs: Abnormal Lab Results - Last 24 Hours (Table) 12/14/23 12/14/23 Range/Units 05:32 05:32 WBC 2.9 L (3.8-10.6) k/uL RBC 2.47 L (4.30-5.90) m/uL Hgb 8.2 L (13.0-17.5) gm/dL Hct 27.0 L (39.0-53.0) % MCV 109.4 H (80.0-100.0) fL MCHC 30.3 L (31.0-37.0) g/dL Plt Count 117 L (150-450) k/uL Macrocytosis Marked A Sodium 136 L (137-145) mmol/L Calcium 8.1 L (8.4-10.2) mg/dL
[2023-12-14 09:06] LABS: INR 1.4 (<1.2); Prothrombin Time 14.4 sec (10.0-12.5)
[2023-12-14] MEDS: DAPAGLIFLOZIN PROPANEDIOL 10 MG TABLET PO SCH (09:49)
--- NOTE | 2023-12-14 12:12 | P.PN ---
Subjective Progress Note Date: 12/14/23 * 78-year-old male came in with weakness on the left side of the body found to have stroke received tenecteplase. Patient has symptoms improved from 0/5 strength to 4/5 strength on the left side. * Patient had a CT angio of the head which showed complete occlusion of the M2 segment on the left side although his stroke is not explained by these findings. Patient does have history of chronic atrial fibrillation on anticoagulation with Coumadin patient is valvular A-fib and patient Coumadin is subtherapeutic on admission. Patient just had a chest x-ray which showed infiltrate bilaterally can be aspiration or can be congestive heart failure. Patient has multiple other medical problems including significant rash all over the body appears to be secondary to scratching. * Patient has significant EKG changes multiple ST-T wave changes appears not to be troponins are negative patient had a cardiac catheterization in the past and was told not a candidate for stenting does have coronary artery disease and will require medications for coronary disease. * 12/13/23 : Patient seen and evaluated in medical ICU, blood work reviewed hemoglobin 8.7, WBC 3, platelet 128. Serum chemistry sodium 138 potassium 4.3 calcium 8.1 magnesium 1.6. Magnesium has been replaced, left arm weakness have improved. Family at bedside all questions answered * 12/14/23 : Patient seen and evaluated bedside, MRI brain has been ordered that is pending cardiology recommended transition to oral anticoagulation with Eliquis. Vitals reviewed patient remains on 2 L of oxygen, blood work reviewe d CBC showed hemoglobin of 8.2, WBC of 2.9 platelet of 117 INR of 1.4, serum chemistry showed sodium of 136 calcium of 8.1, MRI brain pending PHYSICAL EXAMINATION: GENERAL: The patient is alert and oriented x3, ill appearance HEENT: Pupils are round and equally reacting to light. EOMI. CARDIOVASCULAR: S1 and S2 present. Murmur appreciated PULMONARY: Chest is clear to auscultation, no wheezing or crackles. ABDOMEN: Soft, nontender, nondistended, normoactive bowel sounds. No palpable organomegaly. MUSCULOSKELETAL: No joint swelling or deformity. EXTREMITIES: No cyanosis, clubbing, or pedal edema. NEUROLOGICAL: Left-sided weakness, motor senses 4 x 5 left upper extremity, range of motion limited left shoulder, right-sided strength is 5 x 5 right upper and lower extremity SKIN: No rashes. Assessment and plan * Acute CVA with left-sided weakness and expressive aphasia s/p TNK 12/11/23 3 AM * CVA involving right MANAGER PROJECT MANAGEMENT territory CT angiography of the head and neck which showed severe focal stenosis of the left anterior M2 branch. Bilateral mild ICA stenosis. Mild right ICA stenosis from and stenosis. * Acute exacerbation of congestive heart failure systolic dysfunction ejection fraction of 30 to 35% * History of atrial fibrillation with anticoagulation with Coumadin prior to admission * Left shoulder rotator cuff tear * Moderate aortic stenosis * COPD * Hypertension * Hyperlipidemia * History of prostate cancer with surgery * History of throat cancer with surgery and chemo * In regards to acute CVA patient is s/p TNK, continue aspirin, Lipitor, MRI brain ordered, neurology following, once cleared by neurology transition to Eliquis * In regards to acute exacerbation of CHF caution with excessive hydration, continue patient on as needed IV Lasix cardiology following * In regards to dyslipidemia continue patient on Lipitor * Anticoagulation for atrial fibrillation to be initiated once cleared by neurology * Will need physical therapy Occupational Therapy and speech therapy evaluation Objective - Vital Signs Vital signs: Vital Signs Temp 98.5 F 12/13/23 23:30 Pulse 72 12/14/23 07:00 Resp 17 12/14/23 07:00 BP 125/86 12/14/23 07:00 Pulse Ox 95 12/14/23 07:00 FiO2 Intake & Output 12/13/23 12/14/23 12/14/23 18:59 06:59 18:59 Intake Total 2216.788 63.529 Output Total 315 395 0 Balance 1901.788 -331.471 0 Weight 86.4 kg Intake: IV 30 0.9 KVO @ 10 mls/hr 30 Intake, IV Titration 1256.788 33.529 Amount Lactated Ringers 1,000 ml 1000 @ 999 mls/hr IV .Q1H1M ONE Rx#:[id number] Magnesium Sulfate-D5w Pmx 200 1 gm In Dextrose/Water 1 100ml.bag @ 100 mls/hr IVPB Q1H [facility] Rx#: [id number] Norepinephrine 4 mg In 56.788 33.529 Sodium Chloride 0.9% 250 ml @ 0.03 MCG/KG/MIN 9.43 mls/hr IV .Q24H [facility] Rx#: [id number] Oral 960 Output: Urine 315 395 0 Other: Voiding Method Indwelling Catheter Indwelling Catheter - Labs CBC & Chem 7: 12/14/23 05:32 12/14/23 05:32 Labs: Abnormal Lab Results - Last 24 Hours (Table) 12/14/23 12/14/23 12/14/23 Range/Units 05:32 05:32 08:40 WBC 2.9 L (3.8-10.6) k/uL RBC 2.47 L (4.30-5.90) m/uL Hgb 8.2 L (13.0-17.5) gm/dL Hct 27.0 L (39.0-53.0) % MCV 109.4 H (80.0-100.0) fL MCHC 30.3 L (31.0-37.0) g/dL Plt Count 117 L (150-450) k/uL Macrocytosis Marked A PT 14.4 H (10.0-12.5) sec INR 1.4 H (<1.2) Sodium 136 L (137-145) mmol/L Calcium 8.1 L (8.4-10.2) mg/dL
--- NOTE | 2023-12-14 12:42 | P.PN ---
Subjective Progress Note Date: 12/14/23 Principal diagnosis: History of recent treatment of L1-L2 fracture with T12-L4 posterior lateral instrumented fusion Patient was seen at bedside this morning in ICU sitting up eating lunch. was present during encounter. Patient says in regards to his back he is having no complaints at this time. Patient denies any pain. Patient says prior to coming to the hospital he was working with therapy and things were going well. Patient is wondering when he will be able to remove his back brace when he is working with therapy. Patient denies any other orthopedic issues at this time. Objective - Vital Signs Vital signs: Vital Signs Temp 98.4 F 12/14/23 08:45 Pulse 73 12/14/23 10:45 Resp 27 H 12/14/23 10:45 BP 117/68 12/14/23 10:45 Pulse Ox 97 12/14/23 09:15 FiO2 Intake & Output 12/13/23 12/14/23 12/14/23 18:59 06:59 18:59 Intake Total 2216.788 63.529 240 Output Total 315 395 0 Balance 1901.788 -331.471 240 Weight 86.4 kg Intake: IV 30 0.9 KVO @ 10 mls/hr 30 Intake, IV Titration 1256.788 33.529 Amount Lactated Ringers 1,000 ml 1000 @ 999 mls/hr IV .Q1H1M ONE Rx#:[id number] Magnesium Sulfate-D5w Pmx 200 1 gm In Dextrose/Water 1 100ml.bag @ 100 mls/hr IVPB Q1H [facility] Rx#: [id number] Norepinephrine 4 mg In 56.788 33.529 Sodium Chloride 0.9% 250 ml @ 0.03 MCG/KG/MIN 9.43 mls/hr IV .Q24H [facility]TA Rx#: [id number] Oral 960 240 Output: Urine 315 395 0 Other: Voiding Method Indwelling Catheter Indwelling Catheter - Exam Incision appears to be well-healed over there thoracolumbar spine. Negative for any drainage. Negative for any erythema. Negative for any open wounds. Negative for any open fractures. Sensation is equal, symmetric, bilateral intact. Nontender to palpation throughout cervical, thoracic and lumbar spines. Nontender to palpation throughout the paravertebral regions as well. Patient does have some residual weakness in the left side from stroke. Patient does have good strength to the right upper and right lower extremity. Radial pulse intact, 2+ bilaterally. Cap refill under 3 seconds in digits of upper extremities. Negative Homans bilaterally. Negative clonus bilaterally. Negative Deven bilaterally. - Labs CBC & Chem 7: 12/14/23 05:32 12/14/23 05:32 Labs: Abnormal Lab Results - Last 24 Hours (Table) 12/14/23 12/14/23 12/14/23 Range/Units 05:32 05:32 08:40 WBC 2.9 L (3.8-10.6) k/uL RBC 2.47 L (4.30-5.90) m/uL Hgb 8.2 L (13.0-17.5) gm/dL Hct 27.0 L (39.0-53.0) % MCV 109.4 H (80.0-100.0) fL MCHC 30.3 L (31.0-37.0) g/dL Plt Count 117 L (150-450) k/uL Macrocytosis Marked A PT 14.4 H (10.0-12.5) sec INR 1.4 H (<1.2) Sodium 136 L (137-145) mmol/L Calcium 8.1 L (8.4-10.2) mg/dL Assessment and Plan Assessment: 1. History of recent treatment of L1-L2 fracture with T12-L4 posterior lateral instrumented fusion Plan: 1. History of recent treatment of L1-L2 fracture with T12-L4 posterior lateral instrumented fusion -patient at bedside this morning in the ICU. Patient presents with no pain to the spine on exam. X-ray of the thoracic and lumbar spine show hardware that is intact. Pain medication as needed. Weightbearing as tolerated with walker and assistance. TLSO brace on while up and about. At this time we are not recommending any orthopedic surgical intervention. Continue conservative measures. Patient stable from an orthopedic standpoint for discharge. Ortho signing off at this time. Orthopedics will be available as needed to see patient 2. Appreciate medical management and other specialty recommendations 3. Pain management -[place]; Tylenol; gabapentin 4. DVT prophylaxis -heparin; aspirin 5. GI prophylaxis -Protonix; senna 6. PT/OT -weightbearing as tolerated with walker and brace on while up and about 7. Encourage incentive spirometer use Time with Patient: Less than 30
--- NOTE | 2023-12-14 14:04 | P.PN ---
Subjective Progress Note Date: 12/14/23 This is a 78-year-old male patient with a known history of chronic obstructive pulmonary disease, diabetes mellitus, gastroesophageal reflux disease, hyperlipidemia, hypertension, throat cancer with previous chemo and radiation in 2016 atrial fibrillation anticoagulated with warfarin. Last night he went to bed around midnight in his normal state of health and approximately an hour later he had gotten up to go to the bathroom and fell to the floor and his checked on him he was having difficulty speaking and left-sided weakness. EMS was called and he was brought here. Initial CT scan of the brain revealed no acute normalities. CT angiogram revealed no significant stenosis. No aneurysm. INR is 1.5. His case was reviewed with Dr. Carrillo the neurosurgeon on-call. He deemed the patient appropriate for tenecteplase which was given at approximately 3:00 this morning. The patient is seen in consultation in the emergency department. He is currently resting on a stretcher. Awake and alert in no acute distress. His speech is clear. He has some residual left-sided weakness. Chest x-ray shows moderate pulmonary vascular congestion. Trace left effusion. White count 3.0. Hemoglobin 12.5. Platelets 154. Sodium 143. Potassium 5.2. Bicarb 28. BUN 23. Creatinine 0.89. Glucose 116. Troponins negative x 3. He is maintaining good O2 saturations in the upper 90s on 2 L/min per nasal cannula. He is afebrile. Hemodynamically stable. The patient is seen today December 12, 2023 in the intensive care unit. He is currently sitting up in bed. Awake and alert in no acute distress. He is maintaining good O2 saturations in the 90s on 2 L/min per nasal cannula. Has been afebrile. Hemodynamically stable. Echocardiogram revealed reduced left ventricular systolic function with ejection fraction of 30 to 35%. Moderate aortic stenosis. X-ray of the left shoulder reveals severe AC joint OA and chronic full-thickness rotator cuff tear. Suspect mild rotator cuff arthroplasty. Follow-up brain CT reveals evolving right BOX PRESS OPERATOR territory infarct with hypodensity and sulcal effacement. No midline shift hydrocephalus or intracranial hemorrhage at this time. White count 4.1. Hemoglobin 9.2. Platelets 125. Sodium 139. Potassium 4.4 port bicarb 28. BUN 16. Creatinine 0.81. Glucose 85. He is continued on aspirin. The patient's speech is somewhat slurred at times. Denies any weakness. Hand grasp are equal and strong. The patient is seen today December 13, 2023 in follow-up in the intensive care unit. He is currently resting in bed. Awake and alert in no acute distress. He is maintaining O2 saturations in the 90s on 2 L/min per nasal cannula. His blood pressure has been on the low side. He is receiving lactated ringer bolus currently. White count 128. Sodium 138. Potassium 4.3. Bicarb 30. BUN 20. Creatinine 0.98. Glucose 89. Currently in a negative 270 mL balance. Remains on heparin for DVT prophylaxis. Chest x-ray continues to show evidence of fluid volume overload. He did receive Lasix yesterday. He remains somewhat hypotensive. On today's evaluation of 12/14/2023, the patient is being seen for a follow-up. This morning, the patient is doing well. The patient is currently on room air oxygen. No focal neurological deficits. The patient is post CVA. No altered mentation. No headaches. The patient is calm and comfortable currently on room air oxygen. Note that the follow-up CAT scan of the brain showed a evolving CVA at the BOX PRESS OPERATOR territory with some hypodensity and some current effacement. No evidence of any midline shift. The patient is a good cough. Is able to swallow. He remains in atrial fibrillation. Anticoagulation is still on hold. Echocardiogram showed increased LV mass and the patient has an ejection fraction of 35% with moderate degree of aortic stenosis. IV fluids are currently at KVO. WBC count is at 2.9 with a hemoglobin of 8.2 and a platelet count of 117. Patient's INR is at 1.4. Patient has been maintained on anticoagulation with warfarin on outpatient basis. BUN is 18 with a creatinine of 0.8 and sodium levels at 136. The follow-up CAT scan of the brain that was done on 12/12/2023 showed no interval progression in the CVA. No evidence of any bleeds. Objective - Vital Signs Vital signs: Vital Signs Temp 98.5 F 12/13/23 23:30 Pulse 72 12/14/23 07:00 Resp 17 12/14/23 07:00 BP 125/86 12/14/23 07:00 Pulse Ox 95 12/14/23 07:00 FiO2 Intake & Output 12/13/23 12/14/23 12/14/23 18:59 06:59 18:59 Intake Total 2216.788 63.529 Output Total 315 395 0 Balance 1901.788 -331.471 0 Weight 86.4 kg Intake: IV 30 0.9 KVO @ 10 mls/hr 30 Intake, IV Titration 1256.788 33.529 Amount Lactated Ringers 1,000 ml 1000 @ 999 mls/hr IV .Q1H1M ONE Rx#:[id number] Magnesium Sulfate-D5w Pmx 200 1 gm In Dextrose/Water 1 100ml.bag @ 100 mls/hr IVPB Q1H [facility] Rx#: [id number] Norepinephrine 4 mg In 56.788 33.529 Sodium Chloride 0.9% 250 ml @ 0.03 MCG/KG/MIN 9.43 mls/hr IV .Q24H [facility] Rx#: [id number] Oral 960 Output: Urine 315 395 0 Other: Voiding Method Indwelling Catheter Indwelling Catheter - Exam GENERAL EXAM: Alert, 78-year-old male, on t room air oxygen, comfortable in no apparent distress. HEAD: Normocephalic. Patient over left eye EYES: Normal reaction of pupils, equal size. NOSE: Clear with pink turbinates. THROAT: No erythema or exudates. NECK: No masses, no JVD. CHEST: No chest wall deformity. LUNGS: Equal air entry with bilateral scattered rhonchi more so on the right. CVS: S1 and S2 normal with no audible murmur, regular rhythm. ABDOMEN: No hepatosplenomegaly, normal bowel sounds, no guarding or rigidity. SPINE: No scoliosis or deformity SKIN: No rashes CENTRAL NERVOUS SYSTEM: Residual left-sided weakness, tone is normal in all 4 extremities. EXTREMITIES: Ecchymosis and edema of the left shoulder. There is no peripheral edema. No clubbing, no cyanosis. Peripheral pulses are intact. - Labs CBC & Chem 7: 12/14/23 05:32 12/14/23 05:32 Labs: Abnormal Lab Results - Last 24 Hours (Table) 12/14/23 12/14/23 12/14/23 Range/Units 05:32 05:32 08:40 WBC 2.9 L (3.8-10.6) k/uL RBC 2.47 L (4.30-5.90) m/uL Hgb 8.2 L (13.0-17.5) gm/dL Hct 27.0 L (39.0-53.0) % MCV 109.4 H (80.0-100.0) fL MCHC 30.3 L (31.0-37.0) g/dL Plt Count 117 L (150-450) k/uL Macrocytosis Marked A PT 14.4 H (10.0-12.5) sec INR 1.4 H (<1.2) Sodium 136 L (137-145) mmol/L Calcium 8.1 L (8.4-10.2) mg/dL Assessment and Plan Plan: Acute CVA with left-sided weakness and expressive aphasia, status post tenecteplase at approximately 3 AM on 12/11/2023 with improvement. Follow-up CT scan of the brain revealed evolving right BOX PRESS OPERATOR territory infarct with hypodensity in sulcal effacement. No midline shift, hydrocephalus or acute intracranial hemorrhage, based on the follow-up CAT scan that was done on 12/12/2023. Neurologically stable at this point in time. Maintains on aspirin. Remains in atrial fibrillation. Acute hypoxemic respiratory failure secondary to above currently on room air oxygen, chest x-ray shows some pulmonary venous congestion and possible aspiration History of atrial fibrillation anticoagulated with warfarin, subtherapeutic with an INR Cardiomyopathy with impaired left ventricular systolic function and ejection fraction of 30 to 35% Moderate aortic stenosis History of chronic obstructive pulmonary disease Hypertension Hyperlipidemia Diabetes mellitus Gastroesophageal reflux disease History of prostate cancer with previous surgery History of throat cancer with surgery and chemoradiation in 2016 Plan: The patient is neurologically stable. Awaiting MRI of the brain as long as the patient has no metal or foreign bodies that is compatible with MRI machine. Continue aspirin We will start the patient on warfarin once clearance is obtained by the neurologist. Titrate down the FiO2 as tolerated WContinue metoprolol 25 mg daily Continue Lipitor 40 mg p.o. daily Continue rest of the home medications Increase mobility Heparin subcu for DVT prophylaxis Transferred out of the intensive care unit with remote telemetry.
--- NOTE | 2023-12-14 16:59 | MR ---
EXAMINATION TYPE: MR brain wo con DATE OF EXAM: 12/14/2023 4:45 PM CLINICAL INDICATION:Male, 78 years old with history of stroke. left sided weakness; COMPARISON: CT 12/12/2023. TECHNIQUE: Multi planar, multi sequence imaging was performed through the brain including: T1, T2, In version recovery, Diffusion weighted imaging, and gradient echo imaging. No gadolinium was given. FINDINGS: Restricted diffusion involving the right MCA territory involving predominantly the temporal and parietal and occipital lobe. Additional small foci of restricted diffusion within the right fron romaine lobe apple matter and right caudate nucleus also present. There is edema within the area of infarc t within the right MCA territory. Remote injury to the left parietal region and scattered nonspecific white matter changes. The apple-white junctions, ventricular system, basal cisterns appear unremarkable. Midline structures show no abnormality. The susceptibility weighted images do not reveal any evidence for micro-hemorrha ge. The bone marrow signal is within normal limits. Paranasal sinuses and mastoid air cells: No significant paranasal sinus disease. Visualized orbits: Bilaterally aphakia. IMPRESSION: 1. Acute/subacute CVA involving the right MCA territory predominantly involving the right parietal, t emporal and neck supple lobe. Small infarcts also of the right caudate lobe and right frontal lobe al so present. 2. Nonspecific white matter changes, likely secondary to small vessel ischemic disease.
[2023-12-14 20:46] LABS: Glucose,Whole Blood 113 mg/dL (70-110)
[2023-12-15 04:22] LABS: African American GFR (CKD) >90 (>60 ml/min/1.73 sqM); Anion Gap 2 mmol/L; Blood Urea Nitrogen 17 mg/dL (9-20); Calcium 8.5 mg/dL (8.4-10.2); Carbon Dioxide 28 mmol/L (22-30); Chloride 105 mmol/L (98-107); Glucose 86 mg/dL (74-99); Non-African American GFR(CKD) 84 (>60 ml/min/1.73 sqM); Potassium 4.1 mmol/L (3.5-5.1); Sodium 135 mmol/L (137-145)
[2023-12-15 05:50] LABS: Glucose,Whole Blood 106 mg/dL (70-110)
[2023-12-15 08:38] LABS: HCT 25.3 % (39.6-50.0); HGB 7.9 g/dL (13.0-17.0); MCH 33.2 pg (27.0-32.0); MCHC 31.2 g/dL (32.0-37.0); MCV 106.3 FL (80.0-97.0); Mean Platelet Volume 10.2 FL (9.5-12.2); NRBC Per 100 WBC 0 X 10*3/uL (0.00-0.01); Platelet Count 140 X 10*3/uL (140-440); RBC 2.38 X 10*6/uL (4.40-5.60); RDW 15.9 % (11.5-14.5); WBC 2.95 X 10*3/uL (4.50-10.00)
[2023-12-15] MEDS: PANTOPRAZOLE 40 MG TABLET PO SCH (10:04)
[2023-12-15] MEDS: ACETAMINOPHEN TAB 325 MG TAB PO PRN (10:04)
[2023-12-15 10:21] LABS: HCT 27.6 % (39.0-53.0); HGB 8.5 gm/dL (13.0-17.5); Hypochromasia Moderate; MCH 33.2 pg (25.0-35.0); MCHC 30.8 g/dL (31.0-37.0); MCV 107.7 fL (80.0-100.0); Macrocytosis Marked; Mean Platelet Volume 7.8; Platelet Count 150 k/uL (150-450); RBC 2.57 m/uL (4.30-5.90)
--- NOTE | 2023-12-15 10:26 | P.PN ---
Subjective Progress Note Date: 12/14/23 Patient was initially seen by Dr. Kian Obrien. Please refer to his note for details. Patient is a 78-year-old male with history of atrial fibrillation, on Coumadin with subtherapeutic INR. 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 Coumadin on hold because of anemia. Patient currently on aspirin. Patient's was also present. Patient is improving. Per patient's , he is looking better than yesterday. Some of the work-up during this hospital visit consisted of: Lipid panel: TG 51, cholestrol 89, LDL 33, HDL 45. Initial CT which was negative for any acute stroke or bleed. CT angiography of the head and neck which showed severe focal stenosis of the left anterior M2 branch. Bilateral mild ICA stenosis. Mild right ICA stenosis from and stenosis. repeat CT of the head overnight since the patient had headache after the thrombolytic but there is no at the any acute or bleed noted on the repeat. Repeat CT head post 24 hour IV thrombolytic reported as evolving right PLAYGROUND WORKER territory infarct with hypodensity and sulcal effacement. No midline shift, hydrocephalus or acute intracranial hemorrhage at this time. I personally reviewed CT and agree there is acute/subacute right PLAYGROUND WORKER stroke. Repeat CT head again yesterday in afternoon (since had vomiting with some headache): it is reported as a redemonstrated evolving acute infarct in the righ t PLAYGROUND WORKER territory. Overall similar appearance compared to earlier today. No hemorrhagic transformation, midline shift or herniation is seen. I personally reviewed the CT of the head and I agree with the report. 2D echo: Reported as increased LV mass with reduced LV systolic function 30-35%. Thickened aortic valve with moderate aortic stenosis Objective - Vital Signs Vital signs: Vital Signs Temp 98.4 F 12/14/23 08:45 Pulse 73 12/14/23 10:45 Resp 27 H 12/14/23 10:45 BP 117/68 12/14/23 10:45 Pulse Ox 97 12/14/23 09:15 FiO2 Intake & Output 12/13/23 12/14/23 12/14/23 18:59 06:59 18:59 Intake Total 2216.788 63.529 240 Output Total 315 395 0 Balance 1901.788 -331.471 240 Weight 86.4 kg Intake: IV 30 0.9 KVO @ 10 mls/hr 30 Intake, IV Titration 1256.788 33.529 Amount Lactated Ringers 1,000 ml 1000 @ 999 mls/hr IV .Q1H1M [facility] Rx#:[id number] Magnesium Sulfate-D5w Pmx 200 1 gm In Dextrose/Water 1 100ml.bag @ 100 mls/hr IVPB Q1H [facility] Rx#: [id number] Norepinephrine 4 mg In 56.788 33.529 Sodium Chloride 0.9% 250 ml @ 0.03 MCG/KG/MIN 9.43 mls/hr IV .Q24H [facility] Rx#: [id number] Oral 960 240 Output: Urine 315 395 0 Other: Voiding Method Indwelling Catheter Indwelling Catheter - Exam On examination patient is slightly slow mentation. He has a big hematoma in the upper arm. Speech and language functions appears clear. Patient has mild left pronation, with elbow flexion. Muscle strength otherwise is normal. Patient has left homonymous hemianopia. No facial droop. Pupils equal round a nd reacting. Patient has sensory neglect on the left. No ataxia for [id number] testing. - Labs CBC & Chem 7: 12/15/23 03:39 12/15/23 03:39 Labs: Abnormal Lab Results - Last 24 Hours (Table) 12/14/23 12/14/23 12/14/23 Range/Units 05:32 05:32 08:40 WBC 2.9 L (3.8-10.6) k/uL RBC 2.47 L (4.30-5.90) m/uL Hgb 8.2 L (13.0-17.5) gm/dL Hct 27.0 L (39.0-53.0) % MCV 109.4 H (80.0-100.0) fL MCHC 30.3 L (31.0-37.0) g/dL Plt Count 117 L (150-450) k/uL Macrocytosis Marked A PT 14.4 H (10.0-12.5) sec INR 1.4 H (<1.2) Sodium 136 L (137-145) mmol/L Calcium 8.1 L (8.4-10.2) mg/dL Assessment and Plan Assessment: this is a 78-year-old gentleman with history of atrial fibrillation and is on Coumadin who presents because of speech difficulty and left sided weakness that is noted at 12am today. Last normal was 2 hours prior to that. His INR is subtherapeutic of 1.5 and per his coumadin dose was being adjusted at times subtherapeutic and at times subtherapeutic. He received IV thrombolytic. Acute ischemic stroke over the PLAYGROUND WORKER (presented with left sided weakness and speech difficulty. Had hard time assessing peripheral because of cooperation.) post IV thrombolytic. Symptoms improving. Etiology of stroke is likely cardioembolic due to hx of A-fib with subtherapeutic INR. Reported Severe left M2 severe stenosis and I personally reviewed it and felt more distal than M2 Anemia with drop of hemoglobin from 12 to 8. Patient has left arm hematoma from fall. History of atrial fibrillation on coumadin with subtherapeutic INR on presentation DM Neuropathy Chronic lower back pain and had surgery a year ago Plan: Patient currently on aspirin 325 mg daily.. Coumadin is held since acute stroke to avoid hemorrhagic conversion and his anemia. Can resume Coumadin tomorrow if anemia is improved if the MRI brain shows no hemorrhage. Patient going for MRI of the brain today. patient is on Lipitor 40 mg daily at bedtime and that's his home medication. Pending MRI Brain 2-D echo reported as increased left venticular mass. Therefore recommend consulting cardiology team. continue her checks Cardiac monitoring PT OT and [employer] are consulted Optimize control of blood pressure to normotensive level. We'll defer the rest of the medical management the primary and other specialists for DVT prophylaxis: Patient currently on subq heparin 5000U every 12 hours starting tonight. If anemia is worse then recommend holding The plan discussed with the patient and his and ICU nurse.
[2023-12-15 11:39] LABS: Glucose,Whole Blood 105 mg/dL (70-110)
--- NOTE | 2023-12-15 11:40 | CT ---
EXAMINATION TYPE: CT brain wo con CT DLP: 1150.5 mGycm, Automated exposure control for dose reduction was used. DATE OF EXAM: 12/15/2023 11:34 AM COMPARISON: MRI brain 12/14/2023, CT 12/12/2023. CLINICAL INDICATION:Male, 78 years old with history of Headache, Light Headedness, Recent Stroke, ams TECHNIQUE: Brain: Axial CT images of the brain were obtained with coronal and sagittal reformats created and rev iewed. Contrast used: None. Oral contrast used: None. FINDINGS: Brain: Extra-axial spaces: No abnormal extra-axial fluid collections. Ventricular system: Within normal limits Cerebral parenchyma: Continued low density right MCA territory involving the right temporal, right pa rietal and right occipital lobe. Known stroke of the right caudate nucleus and right frontal lobe are less well appreciated. No acute intraparenchymal hemorrhage or mass effect. The remainder of the gr ay-white junctions are well differentiated. Cerebellum: Unremarkable. Mass effect: No evidence of midline shift. Intracranial vasculature: unremarkable Soft tissues: Normal. Calvarium/osseous structures: No depressed skull fracture. Paranasal sinuses and mastoid air cells: Mild scattered paranasal sinus disease. Visualized orbits: Bilateral aphakia IMPRESSION: Continued evolution of right MCA territory infarct as seen on prior MRI and CT. No evidence for hemor rhagic conversion.
[2023-12-15] MEDS: HYDROcodone/APAP 10-325MG 1 EACH TAB PO PRN (12:27)
--- NOTE | 2023-12-15 12:38 | P.PN ---
Subjective Progress Note Date: 12/15/23 PROGRESS NOTE The patient is a 78-year-old male with a known history of chronic persistent atrial fibrillation history of aortic valve disease who presented with CVA, post thrombolytics. He is feeling well this morning. He denies any chest discomfort. He denies any dizziness or palpitations. He continues to be in atrial fibrillation with controlled ventricular response. He has a history of aortic stenosis and was found to have cardiomyopathy of unknown duration or etiology. He is followed by cardiology in another facility. His INR was subtherapeutic on presentation. He has a history of hypertension and hyperlipidemia. His echocardiogram showed an ejection fraction of 30 to 35% with at least moderate aortic stenosis 12/14 Patient is seen today on the [facility] floor. He underwent MRI of the brain which did reveal acute/subacute CVA involving the right MCA territory. Small infarcts on the right caudate lobe and right frontal lobe. Patient denies any new concerns today. No events overnight. Blood pressure is 130/77, heart rate 78, pulse ox 94% on room air. Patient was started on Farxiga yesterday. PHYSICAL EXAMINATION: Vital signs reviewed LUNGS: Clear to auscultation HEART: Irregular rate and rhythm, S1, S2. No S3. Systolic ejection murmur 10/20 ABDOMEN: Soft, nontender, no organomegaly EXTREMETIES: No edema, ecchymosis on the right arm LAB: Hemoglobin 8.5, white blood cell 3, platelets 150, potassium 4.1, BUN 17, creatinine 0.85 IMPRESSION: 1. Status post CVA and thrombolytics with recovery 2. Chronic persistent atrial fibrillation, was subtherapeutic on Coumadin on presentation 3. Aortic stenosis at least moderate 4. Cardiomyopathy of unknown duration or etiology 5. Anemia 6. Hyperlipidemia PLAN: Initiate treatment with Eliquis 5 mg twice a day as this has been cleared by Dr. Arizmendi and he recommends Eliquis with aspirin 81 mg daily Blood pressure readings are stable and lisinopril will be added The patient would require to follow-up with his primary exercise physiology professor regarding the aortic stenosis. The gradient may be underestimated because of the cardio myopathy Nurse practitioner note has been reviewed, I agree with documented findings and plan of care. Patient was seen and examined. Objective - Vital Signs Vital signs: Vital Signs Temp 98.4 F 12/15/23 01:20 Pulse 78 12/15/23 01:20 Resp 17 12/15/23 01:20 BP 130/77 12/15/23 01:20 Pulse Ox 94 L 12/15/23 01:20 FiO2 Intake & Output 12/14/23 12/15/23 12/15/23 18:59 06:59 18:59 Intake Total 480 Output Total 450 Balance 30 Weight 82.5 kg Intake: Oral 480 Output: Urine 450 Other: # Bowel Movements 1 - Labs CBC & Chem 7: 12/15/23 09:39 12/15/23 03:39 Labs: Abnormal Lab Results - Last 24 Hours (Table) 12/14/23 12/14/23 12/15/23 Range/Units 08:40 20:44 03:39 PT 14.4 H (10.0-12.5) sec INR 1.4 H (<1.2) Sodium 135 L (137-145) mmol/L POC Glucose (mg/dL) 113 H (70-110) mg/dL
--- NOTE | 2023-12-15 12:48 | P.PN ---
Subjective Progress Note Date: 12/15/23 * 78-year-old male came in with weakness on the left side of the body found to have stroke received tenecteplase. Patient has symptoms improved from 0/5 strength to 4/5 strength on the left side. * Patient had a CT angio of the head which showed complete occlusion of the M2 segment on the left side although his stroke is not explained by these findings. Patient does have history of chronic atrial fibrillation on anticoagulation with Coumadin patient is valvular A-fib and patient Coumadin is subtherapeutic on admission. Patient just had a chest x-ray which showed infiltrate bilaterally can be aspiration or can be congestive heart failure. Patient has multiple other medical problems including significant rash all over the body appears to be secondary to scratching. * Patient has significant EKG changes multiple ST-T wave changes appears not to be troponins are negative patient had a cardiac catheterization in the past and was told not a candidate for stenting does have coronary artery disease and will require medications for coronary disease. * 12/13/23 : Patient seen and evaluated in medical ICU, blood work reviewed hemoglobin 8.7, WBC 3, platelet 128. Serum chemistry sodium 138 potassium 4.3 calcium 8.1 magnesium 1.6. Magnesium has been replaced, left arm weakness have improved. Family at bedside all questions answered * 12/14/23 : Patient seen and evaluated bedside, MRI brain has been ordered that is pending cardiology recommended transition to oral anticoagulation with Eliquis. Vitals reviewed patient remains on 2 L of oxygen, blood work reviewe d CBC showed hemoglobin of 8.2, WBC of 2.9 platelet of 117 INR of 1.4, serum chemistry showed sodium of 136 calcium of 8.1, MRI brain pending * 12/15/23: Patient seen and evaluated bedside, transferred out of ICU, MRI brain completed does show acute to subacute stroke involving right MCA territory, co ntinue to work with physical therapy, blood work reviewed, hemoglobin 8.5, WBC 3 patient remains on room air . CT head showed evolution of right MCA stroke PHYSICAL EXAMINATION: GENERAL: The patient is alert and oriented x3, ill appearance HEENT: Pupils are round and equally reacting to light. EOMI. CARDIOVASCULAR: S1 and S2 present. Murmur appreciated PULMONARY: Chest is clear to auscultation, no wheezing or crackles. ABDOMEN: Soft, nontender, nondistended, normoactive bowel sounds. No palpable organomegaly. MUSCULOSKELETAL: No joint swelling or deformity. EXTREMITIES: No cyanosis, clubbing, or pedal edema. NEUROLOGICAL: Left-sided weakness, motor senses 4 x 5 left upper extremity, range of motion limited left shoulder, right-sided strength is 5 x 5 right upper and lower extremity SKIN: No rashes. Assessment and plan * Acute CVA with left-sided weakness and expressive aphasia s/p TNK 12/11/23 3 AM * CVA involving right MCA territory * CT angiography of the head and neck which showed severe focal stenosis of the left anterior M2 branch. Bilateral mild ICA stenosis. Mild right ICA stenosis from and stenosis. * Acute exacerbation of congestive heart failure systolic dysfunction ejection fraction of 30 to 35% * History of atrial fibrillation with anticoagulation with Coumadin prior to admission * Left shoulder rotator cuff tear * Moderate aortic stenosis * COPD * Hypertension * Hyperlipidemia * History of prostate cancer with surgery * History of throat cancer with surgery and chemo * In regards to acute CVA patient is s/p TNK, continue aspirin, Lipitor, MRI brain completed neurology following, once cleared by neurology transition to Eliquis * In regards to acute exacerbation of CHF caution with excessive hydration, continue patient on as needed IV Lasix cardiology following * In regards to dyslipidemia continue patient on Lipitor * Anticoagulation for atrial fibrillation to be initiated once cleared by neurology * Will need physical therapy Occupational Therapy and speech therapy evaluation, discharge to subacute rehab Objective - Vital Signs Vital signs: Vital Signs Temp 98.4 F 12/15/23 09:00 Pulse 78 12/15/23 01:20 Resp 17 12/15/23 09:00 BP 130/77 12/15/23 01:20 Pulse Ox 94 L 12/15/23 09:00 FiO2 Intake & Output 12/14/23 12/15/23 12/15/23 18:59 06:59 18:59 Intake Total 480 Output Total 450 150 Balance 30 -150 Weight 82.5 kg Intake: Oral 480 Output: Urine 450 150 Other: Voiding Method Indwelling Catheter # Bowel Movements 1 - Labs CBC & Chem 7: 12/15/23 09:39 12/15/23 03:39 Labs: Abnormal Lab Results - Last 24 Hours (Table) 12/14/23 12/15/23 12/15/23 Range/Units 20:44 03:39 03:39 WBC 2.95 L (4.50-10.00) X 10*3/uL RBC 2.38 L (4.40-5.60) X 10*6/uL Hgb 7.9 L (13.0-17.0) g/dL Hct 25.3 L (39.6-50.0) % MCV 106.3 H (80.0-97.0) FL MCH 33.2 H (27.0-32.0) pg MCHC 31.2 L (32.0-37.0) g/dL RDW 15.9 H (11.5-14.5) % Macrocytosis Sodium 135 L (137-145) mmol/L POC Glucose (mg/dL) 113 H (70-110) mg/dL 12/15/23 Range/Units 09:39 WBC 3.0 L (4.50-10.00) X 10*3/uL RBC 2.57 L (4.40-5.60) X 10*6/uL Hgb 8.5 L (13.0-17.0) g/dL Hct 27.6 L (39.6-50.0) % MCV 107.7 H (80.0-97.0) FL MCH (27.0-32.0) pg MCHC 30.8 L (32.0-37.0) g/dL RDW (11.5-14.5) % Macrocytosis Marked A Sodium (137-145) mmol/L POC Glucose (mg/dL) (70-110) mg/dL
[2023-12-15 14:46] VITALS: BMI 28.5
--- NOTE | 2023-12-15 15:51 | P.PN ---
Subjective Progress Note Date: 12/15/23 This is a 78-year-old male patient with a known history of chronic obstructive pulmonary disease, diabetes mellitus, gastroesophageal reflux disease, hyperlipidemia, hypertension, throat cancer with previous chemo and radiation in 2016 atrial fibrillation anticoagulated with warfarin. Last night he went to bed around midnight in his normal state of health and approximately an hour later he had gotten up to go to the bathroom and fell to the floor and his checked on him he was having difficulty speaking and left-sided weakness. EMS was called and he was brought here. Initial CT scan of the brain revealed no acute normalities. CT angiogram revealed no significant stenosis. No aneurysm. INR is 1.5. His case was reviewed with Dr. Carrillo the neurosurgeon on-call. He deemed the patient appropriate for tenecteplase which was given at approximately 3:00 this morning. The patient is seen in consultation in the emergency department. He is currently resting on a stretcher. Awake and alert in no acute distress. His speech is clear. He has some residual left-sided weakness. Chest x-ray shows moderate pulmonary vascular congestion. Trace left effusion. White count 3.0. Hemoglobin 12.5. Platelets 154. Sodium 143. Potassium 5.2. Bicarb 28. BUN 23. Creatinine 0.89. Glucose 116. Troponins negative x 3. He is maintaining good O2 saturations in the upper 90s on 2 L/min per nasal cannula. He is afebrile. Hemodynamically stable. The patient is seen today December 12, 2023 in the intensive care unit. He is currently sitting up in bed. Awake and alert in no acute distress. He is maintaining good O2 saturations in the 90s on 2 L/min per nasal cannula. Has been afebrile. Hemodynamically stable. Echocardiogram revealed reduced left ventricular systolic function with ejection fraction of 30 to 35%. Moderate aortic stenosis. X-ray of the left shoulder reveals severe AC joint OA and chronic full-thickness rotator cuff tear. Suspect mild rotator cuff arthroplasty. Follow-up brain CT reveals evolving right SENIOR CYTOGENETIC TECHNOLOGIST territory infarct with hypodensity and sulcal effacement. No midline shift hydrocephalus or intracranial hemorrhage at this time. White count 4.1. Hemoglobin 9.2. Platelets 125. Sodium 139. Potassium 4.4 port bicarb 28. BUN 16. Creatinine 0.81. Glucose 85. He is continued on aspirin. The patient's speech is somewhat slurred at times. Denies any weakness. Hand grasp are equal and strong. The patient is seen today December 13, 2023 in follow-up in the intensive care unit. He is currently resting in bed. Awake and alert in no acute distress. He is maintaining O2 saturations in the 90s on 2 L/min per nasal cannula. His blood pressure has been on the low side. He is receiving lactated ringer bolus currently. White count 128. Sodium 138. Potassium 4.3. Bicarb 30. BUN 20. Creatinine 0.98. Glucose 89. Currently in a negative 270 mL balance. Remains on heparin for DVT prophylaxis. Chest x-ray continues to show evidence of fluid volume overload. He did receive Lasix yesterday. He remains somewhat hypotensive. On today's evaluation of 12/14/2023, the patient is being seen for a follow-up. This morning, the patient is doing well. The patient is currently on room air oxygen. No focal neurological deficits. The patient is post CVA. No altered mentation. No headaches. The patient is calm and comfortable currently on room air oxygen. Note that the follow-up CAT scan of the brain showed a evolving CVA at the SENIOR CYTOGENETIC TECHNOLOGIST territory with some hypodensity and some current effacement. No evidence of any midline shift. The patient is a good cough. Is able to swallow. He remains in atrial fibrillation. Anticoagulation is still on hold. Echocardiogram showed increased LV mass and the patient has an ejection fraction of 35% with moderate degree of aortic stenosis. IV fluids are currently at KVO. WBC count is at 2.9 with a hemoglobin of 8.2 and a platelet count of 117. Patient's INR is at 1.4. Patient has been maintained on anticoagulation with warfarin on outpatient basis. BUN is 18 with a creatinine of 0.8 and sodium levels at 136. The follow-up CAT scan of the brain that was done on 12/12/2023 showed no interval progression in the CVA. No evidence of any bleeds. On today's evaluation of 12/15/2023, the patient is having some dizziness. Repeat CAT scan of the brain was done showed evolution of a right MCA distribution infarct. The patient remains on aspirin and the patient was also started on anticoagulation with Eliquis 5 mg p.o. twice daily. Rest of the medication remains unchanged. The BP is stable and the most recent BP is 160/92. The patient is currently on pulse ox of 96% on room air oxygen. Hemodynamically stable. The white cell count is at 3 with a hemoglobin 8.5 and a platelet count of 150. Objective - Vital Signs Vital signs: Vital Signs Temp 98.4 F 12/15/23 09:00 Pulse 93 12/15/23 11:31 Resp 17 12/15/23 09:00 BP 162/95 12/15/23 11:31 Pulse Ox 96 12/15/23 11:31 FiO2 Intake & Output 12/14/23 12/15/23 12/15/23 18:59 06:59 18:59 Intake Total 480 Output Total 450 300 Balance 30 -300 Weight 82.5 kg Intake: Oral 480 Output: Urine 450 300 Other: Voiding Method Indwelling Catheter # Bowel Movements 1 - Exam GENERAL EXAM: Alert, 78-year-old male, on t room air oxygen, comfortable in no apparent distress. HEAD: Normocephalic. Patient over left eye EYES: Normal reaction of pupils, equal size. NOSE: Clear with pink turbinates. THROAT: No erythema or exudates. NECK: No masses, no JVD. CHEST: No chest wall deformity. LUNGS: Equal air entry with bilateral scattered rhonchi more so on the right. CVS: S1 and S2 normal with no audible murmur, regular rhythm. ABDOMEN: No hepatosplenomegaly, normal bowel sounds, no guarding or rigidity. SPINE: No scoliosis or deformity SKIN: No rashes CENTRAL NERVOUS SYSTEM: Residual left-sided weakness, tone is normal in all 4 extremities. EXTREMITIES: Ecchymosis and edema of the left shoulder. There is no peripheral edema. No clubbing, no cyanosis. Peripheral pulses are intact. - Labs CBC & Chem 7: 12/15/23 09:39 12/15/23 03:39 Labs: Abnormal Lab Results - Last 24 Hours (Table) 12/14/23 12/15/23 12/15/23 Range/Units 20:44 03:39 03:39 WBC 2.95 L (4.50-10.00) X 10*3/uL RBC 2.38 L (4.40-5.60) X 10*6/uL Hgb 7.9 L (13.0-17.0) g/dL Hct 25.3 L (39.6-50.0) % MCV 106.3 H (80.0-97.0) FL MCH 33.2 H (27.0-32.0) pg MCHC 31.2 L (32.0-37.0) g/dL RDW 15.9 H (11.5-14.5) % Macrocytosis Sodium 135 L (137-145) mmol/L POC Glucose (mg/dL) 113 H (70-110) mg/dL 12/15/23 Range/Units 09:39 WBC 3.0 L (4.50-10.00) X 10*3/uL RBC 2.57 L (4.40-5.60) X 10*6/uL Hgb 8.5 L (13.0-17.0) g/dL Hct 27.6 L (39.6-50.0) % MCV 107.7 H (80.0-97.0) FL MCH (27.0-32.0) pg MCHC 30.8 L (32.0-37.0) g/dL RDW (11.5-14.5) % Macrocytosis Marked A Sodium (137-145) mmol/L POC Glucose (mg/dL) (70-110) mg/dL Assessment and Plan Plan: Acute CVA with left-sided weakness and expressive aphasia, status post tenecteplase at approximately 3 AM on 12/11/2023 with improvement. Follow-up CT scan of the brain revealed evolving right SENIOR CYTOGENETIC TECHNOLOGIST territory infarct with hypodensity in sulcal effacement. No midline shift, hydrocephalus or acute intracranial hemorrhage, based on the follow-up CAT scan that was done on 12/12/2023. Neurologically stable at this point in time. Maintains on aspirin. Remains in atrial fibrillation. Patient was started on anticoagulation. Will monitor his neurologic progress closely. Limited dizziness. Hemodynamically stable. No hypotension. Acute hypoxemic respiratory failure recovered and the patient is currently on room air oxygen. History of atrial fibrillation anticoagulated with warfarin, subtherapeutic with an INR, currently on anticoagulation with Eliquis. Cardiomyopathy with impaired left ventricular systolic function and ejection fraction of 30 to 35% Moderate aortic stenosis History of chronic obstructive pulmonary disease Hypertension Hyperlipidemia Diabetes mellitus Gastroesophageal reflux disease History of prostate cancer with previous surgery History of throat cancer with surgery and chemoradiation in 2016 Plan: Acute CVA and follow-up CAT scan of the brain was noted. The patient was maintained on aspirin and anticoagulation was started with Eliquis. Continue aspirin Patient is currently on room air oxygen Continue metoprolol 25 mg daily Continue Lipitor 40 mg p.o. daily Continue rest of the home medications Increase mobility Heparin subcu for DVT prophylaxis
[2023-12-15 20:03] VITALS: RESP 18
[2023-12-15] MEDS: APIXABAN 5 MG TAB PO SCH (20:49)
[2023-12-16] MEDS: ASPIRIN 81 MG PO SCH (08:22)
[2023-12-16 10:15] LABS: HCT 30.6 % (39.0-53.0); HGB 9.3 gm/dL (13.0-17.5); Hypochromasia Marked; MCH 33.3 pg (25.0-35.0); MCHC 30.4 g/dL (31.0-37.0); MCV 109.5 fL (80.0-100.0); Macrocytosis Marked; Mean Platelet Volume 8.2; Platelet Count 150 k/uL (150-450); RDW 15.3 % (11.5-15.5); WBC 3.3 k/uL (3.8-10.6)
[2023-12-16 10:17] LABS: African American GFR (CKD) >90 (>60 ml/min/1.73 sqM); Anion Gap 6 mmol/L; Blood Urea Nitrogen 15 mg/dL (9-20); Calcium 8.7 mg/dL (8.4-10.2); Carbon Dioxide 26 mmol/L (22-30); Chloride 102 mmol/L (98-107); Glucose 87 mg/dL (74-99); Non-African American GFR(CKD) 89 (>60 ml/min/1.73 sqM); Potassium 4.4 mmol/L (3.5-5.1); Sodium 134 mmol/L (137-145)
--- NOTE | 2023-12-16 12:42 | P.PN ---
Subjective HISTORY OF PRESENT ILLNESS: The patient is a 78-year-old male with a known history of chronic persistent atrial fibrillation history of aortic valve disease who presented with CVA, post thrombolytics. He is feeling well this morning. He denies any chest discomfort. He denies any dizziness or palpitations. He continues to be in atrial fibrillation with controlled ventricular response. He has a history of aortic stenosis and was found to have cardiomyopathy of unknown duration or etiology. He is followed by cardiology in another facility. His INR was subtherapeutic on presentation. He has a history of hypertension and hyperlipidemia. His echocardiogram showed an ejection fraction of 30 to 35% with at least moderate aortic stenosis 12/14 Patient is seen today on the [facility] floor. He underwent MRI of the brain which did reveal acute/subacute CVA involving the right MCA territory. Small infarcts on the right caudate lobe and right frontal lobe. Patient denies any new concerns today. No events overnight. Blood pressure is 130/77, heart rate 78, pulse ox 94% on room air. Patient was started on xiga yesterday. 12/16/2023 Patient examined this morning. Patient sitting up in the chair. Patient currently denies chest pain or pressure. He denies shortness of breath. Apparently patient had a headache yesterday which has since resolved. Vital signs are stable. PHYSICAL EXAM: VITAL SIGNS: Reviewed. GENERAL: Well-developed in no acute distress. NECK: Supple. No JVD or thyromegaly LUNGS: Respirations even and unlabored. Lungs essentially clear to auscultation bilaterally. HEART: Irregular rate and rhythm. S1 and S2 heard. Systolic murmur noted. EXTREMITIES: Normal range of motion. No clubbing or cyanosis. Peripheral pulses intact. No lower extremity edema ASSESSMENT: 1. Status post CVA and thrombolytics with recovery 2. Chronic persistent atrial fibrillation, was subtherapeutic on Coumadin on pr esentation 3. Aortic stenosis at least moderate 4. Cardiomyopathy of unknown duration or etiology 5. Anemia 6. Hyperlipidemia PLAN: Continue current cardiac medications Patient is currently stable for discharge from a cardiac standpoint Patient is to follow-up postdischarge with his primary cad designer regarding his aortic stenosis We will sign off. Please reconsult if needed. Nurse practitioner note has been reviewed by physician. Signing provider agrees with the documented findings, assessment, and plan of care documented by [employer] as a scribe. Objective - Vital Signs Vital signs: Vital Signs Temp 97.7 F 12/15/23 21:00 Pulse 78 12/16/23 03:15 Resp 18 12/16/23 03:15 BP 139/81 12/16/23 03:15 Pulse Ox 96 12/16/23 08:24 FiO2 Intake & Output 12/15/23 12/16/23 12/16/23 18:59 06:59 18:59 Intake Total 0 0 Output Total 300 1525 200 Balance -300 -1525 -200 Weight 82.5 kg Intake: Oral 0 0 Output: Urine 300 1525 200 Other: Voiding Method Indwelling Catheter Urinal # Voids 1 # Bowel Movements 1 - Labs CBC & Chem 7: 12/16/23 08:35 12/16/23 08:35 Labs: Abnormal Lab Results - Last 24 Hours (Table) 12/16/23 12/16/23 Range/Units 08:35 08:35 WBC 3.3 L (3.8-10.6) k/uL RBC 2.80 L (4.30-5.90) m/uL Hgb 9.3 L (13.0-17.5) gm/dL Hct 30.6 L (39.0-53.0) % MCV 109.5 H (80.0-100.0) fL MCHC 30.4 L (31.0-37.0) g/dL Macrocytosis Marked A Sodium 134 L (137-145) mmol/L
[2023-12-16 13:22] VITALS: BP 153/97; PULSE 83; TEMP 98
--- NOTE | 2023-12-16 13:37 | P.DS ---
Providers Date of admission: 12/11/23 04:38 Attending physician: Obed Ba Consults: 12/11/23 04:40 Consult Physician Routine Consulting Provider: Sebastien Obrien Consult Reason/Comments: TNKase patient. Acute ischemic stroke Do you want consulting provider notified?: Already Contacted Consult Physician Routine Consulting Provider: Kian Obrien Consult Reason/Comments: Acute ischemic stroke Do you want consulting provider notified?: Yes 12/12/23 11:49 Consult Physician Routine Consulting Provider: Deven Yu Consult Reason/Comments: left ventricular mass Do you want consulting provider notified?: Yes 12/13/23 09:26 Consult Physician Routine Consulting Provider: Milo Lomeli Consult Reason/Comments: Recent surgery Do you want consulting provider notified?: Yes 12/13/23 10:11 Consult Physician Routine Consulting Provider: Milo Lomeli Consult Reason/Comments: s/p fall, CVA, recent back surgey in november Do you want consulting provider notified?: Yes Primary care physician: Lexi Blackwood Hospital Course: Diagnoses: Acute CVA with left-sided weakness and expressive aphasia s/p TNK 12/11/23 CVA involving right MCA territory CT angiography of the head and neck which showed severe focal stenosis of the left anterior M2 branch. Bilateral mild ICA stenosis. Mild right ICA stenosis from and stenosis. Acute exacerbation of congestive heart failure systolic dysfunction ejection fraction of 30 to 35% History of atrial fibrillation with anticoagulation with Coumadin prior to admission Left shoulder rotator cuff tear Moderate aortic stenosis COPD Hypertension Hyperlipidemia History of prostate cancer with surgery History of throat cancer with surgery and chemo Hospital course: 78-year-old male came in with weakness on the left side of the body found to have stroke received tenecteplase. Patient has symptoms improved from 0/5 strength to 4/5 strength on the left side. Patient had a CT angio of the head which showed complete occlusion of the M2 segment on the left side although his stroke is not explained by these findings. Patient does have history of chronic atrial fibrillation on anticoagulation with Coumadin patient is valvular A-fib and patient Coumadin is subtherapeutic on admission. Patient evaluated by neurology and cardiology service as well as pulmonary service. Patient Coumadin was stopped and was started on Eliquis. Also he is continued on aspirin. Patient weakness improved, there is no evidence of bleeding. Echocardiogram showed evidence of cardiomyopathy with ejection fraction 30 to 35% however the patient looks euvolemic. He has moderate aortic stenosis and dye room helper recommended patient follow-up with his primary dye room helper as an outpatient and he agreed. Patient also is on room air and cleared for discharge by pulmonary service Orthopedic evaluated the patient and last seen him was on 12/13, no need for surgical intervention and was treated conservatively. On the day of discharge patient is fully awake and oriented, still has mild weakness on the left side but improving, no headache or dizziness, no chest pain or dyspnea. No change in urine or blood today. Problems and management plan were discussed with the patient and he verbalized understanding and acceptance Patient was found stable and can be discharged home in guarded prognosis however he needs follow-up as an outpatient. Patient was instructed to follow up with PCP Dr. amanda (! spelling per pt) within one week and patient agrees , as he states he has the contact information and can follow up as instructed Patient was recommended to follow-up with neurointervention Dr. Salazar and/or whom he follow up with as outpatient and he verbalized understanding and acceptance She was instructed to follow-up with barrel filler head Dr. Obrien in 2 weeks and he agrees Physical exam Gen: patient is a AAOx3, no distress CVS: S1-S2, RRR, no murmur Lungs: B/L CTA, no wheezing Abdomen: soft, no distention, no tenderness, positive bowel sounds Extremity: no leg edema or induration Time spent more than 35 minutes Plan - Discharge Summary Discharge Rx Participant: No New Discharge Prescriptions: New Dapagliflozin Propanediol [Farxiga] 10 mg PO DAILY tab Apixaban [Eliquis] 5 mg PO BID tab Acetaminophen Tab [Tylenol] 650 mg PO Q6HR PRN tab PRN Reason: Pain lisinopriL [Zestril] 2.5 mg PO DAILY tab Continue Omeprazole 20 mg PO DAILY Multivitamins, Thera [Multivitamin (formulary)] 1 tab PO DAILY Cyanocobalamin (Vitamin B-12) [Vitamin B-12] 1,000 mcg PO DAILY Sodium Bicarbonate Tab 650 mg PO BID #60 tab Potassium Chloride [Klor-Con M20] 20 meq PO DAILY@0700 Metoprolol Succinate [Metoprolol Succinate ER] 25 mg PO DAILY EPINEPHrine (Auto Inject) [Epipen] 0.3 mg IM ONCE PRN PRN Reason: Anaphylaxis Pioglitazone [Actos] 15 mg PO DAILY Ferrous Sulfate [Iron (65 MG Elemental)] 325 mg PO DAILY Gabapentin 300 mg PO HS Cholecalciferol [Vitamin D3 (25 Mcg = 1000 Iu)] 25 mcg PO DAILY rOPINIRole HCL [Requip] 0.5 mg PO HS Latanoprost/Pf [Latanoprost 0.005% Eye Drop] 1 drop RIGHT EYE HS Carboxymethylcellulose Sodium [Thera Tears] 1 drop LEFT EYE HS Tamsulosin [Flomax] 0.4 mg PO DAILY 7 Days #7 cap Aspirin EC [Ecotrin Low Dose] 81 mg PO HS L.acidoph,Paracasei, B.lactis [Probiotic] 1 cap PO DAILY Cyclobenzaprine [Flexeril] 5 mg PO TID PRN #30 tablet PRN Reason: Muscle Spasm Atorvastatin [Lipitor] 40 mg PO HS Sennosides/Docusate Sodium [Senna Plus 8.6-50 mg Softgel] 1 cap PO DAILY PRN PRN Reason: Constipation Ondansetron Odt [Zofran ODT] 4 mg PO DAILY PRN PRN Reason: Nausea And Vomiting Discontinued Warfarin [Coumadin] 7.5 mg PO SUTUTH@2100 Losartan [Cozaar] 25 mg PO HS cefaDROXiL [Duricef] 500 mg PO Q12HR #10 cap HYDROcodone/APAP 10-325MG [[place] 10-325] 1 tab PO Q4-6H PRN #40 tab PRN Reason: Pain Warfarin [Coumadin] 5 mg PO MOWEFRSA@2100 Discharge Medication List Omeprazole 20 mg PO DAILY 05/25/18 [History] Multivitamins, Thera [Multivitamin (formulary)] 1 tab PO DAILY 09/26/19 [History] Cholecalciferol [Vitamin D3 (25 Mcg = 1000 Iu)] 25 mcg PO DAILY 10/04/21 [History] Cyanocobalamin (Vitamin B-12) [Vitamin B-12] 1,000 mcg PO DAILY 10/04/21 [History] rOPINIRole HCL [Requip] 0.5 mg PO HS 07/03/22 [History] Carboxymethylcellulose Sodium [Thera Tears] 1 drop LEFT EYE HS 11/25/22 [History] Latanoprost/Pf [Latanoprost 0.005% Eye Drop] 1 drop RIGHT EYE HS 11/25/22 [History] Tamsulosin [Flomax] 0.4 mg PO DAILY 7 Days #7 cap 12/27/22 [Rx] Sodium Bicarbonate Tab 650 mg PO BID #60 tab 01/02/23 [Rx] Aspirin EC [Ecotrin Low Dose] 81 mg PO HS 01/16/23 [History] Potassium Chloride [Klor-Con M20] 20 meq PO DAILY@0700 01/16/23 [History] L.acidoph,Paracasei, B.lactis [Probiotic] 1 cap PO DAILY 09/22/23 [History] Metoprolol Succinate [Metoprolol Succinate ER] 25 mg PO DAILY 09/22/23 [History] Cyclobenzaprine [Flexeril] 5 mg PO TID PRN #30 tablet 10/01/23 [Rx] Atorvastatin [Lipitor] 40 mg PO HS 12/11/23 [History] EPINEPHrine (Auto Inject) [Epipen] 0.3 mg IM ONCE PRN 12/11/23 [History] Ferrous Sulfate [Iron (65 MG Elemental)] 325 mg PO DAILY 12/11/23 [History] Gabapentin 300 mg PO HS 12/11/23 [History] Ondansetron Odt [Zofran ODT] 4 mg PO DAILY PRN 12/11/23 [History] Pioglitazone [Actos] 15 mg PO DAILY 12/11/23 [History] Sennosides/Docusate Sodium [Senna Plus 8.6-50 mg Softgel] 1 cap PO DAILY PRN 12/11/23 [History] Acetaminophen Tab [Tylenol] 650 mg PO Q6HR PRN tab 12/16/23 [Rx] Apixaban [Eliquis] 5 mg PO BID tab 12/16/23 [Rx] Dapagliflozin Propanediol [Farxiga] 10 mg PO DAILY tab 12/16/23 [Rx] lisinopriL [Zestril] 2.5 mg PO DAILY tab 12/16/23 [Rx] Follow up Appointment(s)/Referral(s): Sebastien Obrien DO [Doctor of Osteopathic Medicine] [facility] - As Needed Doni Mills MD [Medical Doctor] - 2 Weeks (neurologist ) None,Stated [REFERRING] - 1-2 days Milo Lomeli DO [Doctor of Osteopathic Medicine] - 2 Weeks [facility], [NON-STAFF] - 1 Week Paresh Russ MD [STAFF PHYSICIAN] - 2 Weeks (neurointerventionist ) Activity/Diet/Wound Care/Special Instructions: Heart healthy diet activity is restricted till you see your doctor Please follow up in 1 week with your regular dye room helper Discharge Disposition: TRANSFER TO SNF/ECF
--- NOTE | 2023-12-16 14:32 | P.PN ---
Subjective Progress Note Date: 12/16/23 This is a 78-year-old male patient with a known history of chronic obstructive pulmonary disease, diabetes mellitus, gastroesophageal reflux disease, hyperlipidemia, hypertension, throat cancer with previous chemo and radiation in 2016 atrial fibrillation anticoagulated with warfarin. Last night he went to bed around midnight in his normal state of health and approximately an hour later he had gotten up to go to the bathroom and fell to the floor and his checked on him he was having difficulty speaking and left-sided weakness. EMS was called and he was brought here. Initial CT scan of the brain revealed no acute normalities. CT angiogram revealed no significant stenosis. No aneurysm. INR is 1.5. His case was reviewed with Dr. Carrillo the neurosurgeon on-call. He deemed the patient appropriate for tenecteplase which was given at approximately 3:00 this morning. The patient is seen in consultation in the emergency department. He is currently resting on a stretcher. Awake and alert in no acute distress. His speech is clear. He has some residual left-sided weakness. Chest x-ray shows moderate pulmonary vascular congestion. Trace left effusion. White count 3.0. Hemoglobin 12.5. Platelets 154. Sodium 143. Potassium 5.2. Bicarb 28. BUN 23. Creatinine 0.89. Glucose 116. Troponins negative x 3. He is maintaining good O2 saturations in the upper 90s on 2 L/min per nasal cannula. He is afebrile. Hemodynamically stable. The patient is seen today December 12, 2023 in the intensive care unit. He is currently sitting up in bed. Awake and alert in no acute distress. He is maintaining good O2 saturations in the 90s on 2 L/min per nasal cannula. Has been afebrile. Hemodynamically stable. Echocardiogram revealed reduced left ventricular systolic function with ejection fraction of 30 to 35%. Moderate aortic stenosis. X-ray of the left shoulder reveals severe AC joint OA and chronic full-thickness rotator cuff tear. Suspect mild rotator cuff arthroplasty. Follow-up brain CT reveals evolving right PA[place] WINDER territory infarct with hypodensity and sulcal effacement. No midline shift hydrocephalus or intracranial hemorrhage at this time. White count 4.1. Hemoglobin 9.2. Platelets 125. Sodium 139. Potassium 4.4 port bicarb 28. BUN 16. Creatinine 0.81. Glucose 85. He is continued on aspirin. The patient's speech is somewhat slurred at times. Denies any weakness. Hand grasp are equal and strong. The patient is seen today December 13, 2023 in follow-up in the intensive care unit. He is currently resting in bed. Awake and alert in no acute distress. He is maintaining O2 saturations in the 90s on 2 L/min per nasal cannula. His blood pressure has been on the low side. He is receiving lactated ringer bolus currently. White count 128. Sodium 138. Potassium 4.3. Bicarb 30. BUN 20. Creatinine 0.98. Glucose 89. Currently in a negative 270 mL balance. Remains on heparin for DVT prophylaxis. Chest x-ray continues to show evidence of fluid volume overload. He did receive Lasix yesterday. He remains somewhat hypotensive. On today's evaluation of 12/14/2023, the patient is being seen for a follow-up. This morning, the patient is doing well. The patient is currently on room air oxygen. No focal neurological deficits. The patient is post CVA. No altered mentation. No headaches. The patient is calm and comfortable currently on room air oxygen. Note that the follow-up CAT scan of the brain showed a evolving CVA at the PA[place]ER territory with some hypodensity and some current effacement. No evidence of any midline shift. The patient is a good cough. Is able to swallow. He remains in atrial fibrillation. Anticoagulation is still on hold. Echocardiogram showed increased LV mass and the patient has an ejection fraction of 35% with moderate degree of aortic stenosis. IV fluids are currently at KVO. WBC count is at 2.9 with a hemoglobin of 8.2 and a platelet count of 117. Patient's INR is at 1.4. Patient has been maintained on anticoagulation with warfarin on outpatient basis. BUN is 18 with a creatinine of 0.8 and sodium levels at 136. The follow-up CAT scan of the brain that was done on 12/12/2023 showed no interval progression in the CVA. No evidence of any bleeds. On today's evaluation of 12/15/2023, the patient is having some dizziness. Repeat CAT scan of the brain was done showed evolution of a right MCA distribution infarct. The patient remains on aspirin and the patient was also started on anticoagulation with Eliquis 5 mg p.o. twice daily. Rest of the medication remains unchanged. The BP is stable and the most recent BP is 160/92. The patient is currently on pulse ox of 96% on room air oxygen. Hemodynamically stable. The white cell count is at 3 with a hemoglobin 8.5 and a platelet count of 150. On 12/16/2023, the patient is being seen for a follow-up. No new complaints. No focal neurological deficit and the patient is resting comfortably in bed. He is doing some limited amount of mobility in addition. Currently is on anticoagulation with Eliquis. No bleeding complications. The patient remains atrial fibrillation with a controlled rate. WBC count of 3.3 with a hemoglobin of 10.3 and a platelet count of 150. BUN is at 15 with a creatinine of 0.7. Objective - Vital Signs Vital signs: Vital Signs Temp 97.7 F 12/15/23 21:00 Pulse 78 12/16/23 03:15 Resp 18 12/16/23 03:15 BP 139/81 12/16/23 03:15 Pulse Ox 96 12/16/23 08:24 FiO2 Intake & Output 12/15/23 12/16/23 12/16/23 18:59 06:59 18:59 Intake Total 0 0 Output Total 300 1525 200 Balance -300 -1525 -200 Weight 82.5 kg Intake: Oral 0 0 Output: Urine 300 1525 200 Other: Voiding Method Indwelling Catheter Urinal # Voids 1 # Bowel Movements 1 - Exam GENERAL EXAM: Alert, 78-year-old male, on t room air oxygen, comfortable in no apparent distress. HEAD: Normocephalic. Patient over left eye EYES: Normal reaction of pupils, equal size. NOSE: Clear with pink turbinates. THROAT: No erythema or exudates. NECK: No masses, no JVD. CHEST: No chest wall deformity. LUNGS: Equal air entry with bilateral scattered rhonchi more so on the right. CVS: S1 and S2 normal with no audible murmur, regular rhythm. ABDOMEN: No hepatosplenomegaly, normal bowel sounds, no guarding or rigidity. SPINE: No scoliosis or deformity SKIN: No rashes CENTRAL NERVOUS SYSTEM: Residual left-sided weakness, tone is normal in all 4 extremities. EXTREMITIES: Ecchymosis and edema of the left shoulder. There is no peripheral edema. No clubbing, no cyanosis. Peripheral pulses are intact. - Labs CBC & Chem 7: 12/16/23 08:35 12/16/23 08:35 Labs: Abnormal Lab Results - Last 24 Hours (Table) 12/15/23 12/16/23 12/16/23 Range/Units 09:39 08:35 08:35 WBC 3.0 L 3.3 L (3.8-10.6) k/uL RBC 2.57 L 2.80 L (4.30-5.90) m/uL Hgb 8.5 L 9.3 L (13.0-17.5) gm/dL Hct 27.6 L 30.6 L (39.0-53.0) % MCV 107.7 H 109.5 H (80.0-100.0) fL MCHC 30.8 L 30.4 L (31.0-37.0) g/dL Macrocytosis Marked A Marked A Sodium 134 L (137-145) mmol/L Assessment and Plan Plan: Acute CVA with left-sided weakness and expressive aphasia, status post tenecteplase at approximately 3 AM on 12/11/2023 with improvement. Follow-up CT scan of the brain revealed evolving right PA[place] WINDER territory infarct with hypodensity in sulcal effacement. No midline shift, hydrocephalus or acute intracranial hemorrhage, based on the follow-up CAT scan that was done on 12/12/2023. Neurologically stable at this point in time. Maintains on aspirin. Remains in atrial fibrillation. Patient was started on anticoagulation. Will monitor his neurologic progress closely. Limited dizziness. Hemodynamically stable. No hypotension. Acute hypoxemic respiratory failure recovered and the patient is currently on room air oxygen. History of atrial fibrillation anticoagulated with warfarin, subtherapeutic with an INR, currently on anticoagulation with Eliquis. Cardiomyopathy with impaired left ventricular systolic function and ejection fraction of 30 to 35% Moderate aortic stenosis History of chronic obstructive pulmonary disease Hypertension Hyperlipidemia Diabetes mellitus Gastroesophageal reflux disease History of prostate cancer with previous surgery History of throat cancer with surgery and chemoradiation in 2016 Plan: No new onset neurological symptoms and the patient is tolerating anticoagulation well and the patient is currently on anticoagulation with Eliquis Patient remains in atrial fibrillation with a controlled rate Acute CVA and follow-up CAT scan of the brain was noted. The patient was maintained on aspirin and anticoagulation was started with Eliquis. Continue aspirin Patient is currently on room air oxygen Continue metoprolol 25 mg daily Continue Lipitor 40 mg p.o. daily Continue rest of the home medications Increase mobility Heparin subcu for DVT prophylaxis Possible home today Going to sign off the case.
== END 2023-12-16 15:06 | DRG 61 ==
LOC: EC 01:05 → 2SICU 04:38 → 4SSUR 12-14 20:04 → 3SCARD 12-15 14:17
PROVIDERS: ADMIT Hospitalist; ATTEND Hospitalist
DX: I63.431 Cerebral infarction due to embolism of right posterior cerebral artery (principal); I50.23 Acute on chronic systolic (congestive) heart failure; J96.01 Acute respiratory failure with hypoxia; I42.9 Cardiomyopathy, unspecified; I48.21 Permanent atrial fibrillation; D62 Acute posthemorrhagic anemia; G81.94 Hemiplegia, unspecified affecting left nondominant side; I11.0 Hypertensive heart disease with heart failure; I35.0 Nonrheumatic aortic (valve) stenosis; K21.9 Gastro-esophageal reflux disease without esophagitis; M19.012 Primary osteoarthritis, left shoulder; M75.122 Complete rotator cuff tear or rupture of left shoulder, not specified as traumatic; R47.01 Aphasia; R79.1 Abnormal coagulation profile; E11.40 Type 2 diabetes mellitus with diabetic neuropathy, unspecified; J44.9 Chronic obstructive pulmonary disease, unspecified; E78.5 Hyperlipidemia, unspecified; Z66 Do not resuscitate; G89.29 Other chronic pain; E66.9 Obesity, unspecified; R29.701 NIHSS score 1; E87.5 Hyperkalemia; T46.5X5A Adverse effect of other antihypertensive drugs, initial encounter; S40.022A Contusion of left upper arm, initial encounter; W06.XXXA Fall from bed, initial encounter; R51.9 Headache, unspecified; Z98.1 Arthrodesis status; Z79.01 Long term (current) use of anticoagulants; Z79.82 Long term (current) use of aspirin; Z79.84 Long term (current) use of oral hypoglycemic drugs; Z79.899 Other long term (current) drug therapy; Z85.01 Personal history of malignant neoplasm of esophagus; Z85.46 Personal history of malignant neoplasm of prostate; Z92.21 Personal history of antineoplastic chemotherapy; Z92.3 Personal history of irradiation; Z90.49 Acquired absence of other specified parts of digestive tract; Z68.28 Body mass index [BMI] 28.0-28.9, adult; Z28.21 Immunization not carried out because of patient refusal
CPT/HCPCS: 36415; 36600; 37195; 70450; 70496; 70498; 70551; 71045; 72070; 72100; 72125; 80048; 80053; 80061; 82550; 82805; 83735; 83880; 84484; 85025; 85027; 85610; 85730; 93005; 93306; 94760; 96374; 96375; 99291

== ENCOUNTER 2024-01-28 15:18 | Emergency (ER) | payer MEDICARE, OTHER ==
--- NOTE | 2024-01-28 16:03 | ED ---
Recheck HPI - General Chief Complaint: Recheck/Abnormal Lab/Rx Stated Complaint: hypertension Time Seen by Provider: 01/28/24 15:22 Source: patient, RN notes reviewed, old records reviewed Mode of arrival: EMS Limitations: no limitations - History of Present Illness Initial Comments: This is a 78-year-old male to the ER for evaluation today. Patient was today for evaluation of severely elevated blood pressure and 's concern for recurrent CVA. Patient has no CVA type symptoms she is having increasing blood pressure for the last 4 days today being the highest at home concerning the concerning the although he has no current complaints MD Complaint: other (Hypertension) -: days(s) Returns Today for: other (Hypertension) Symptoms Since Prior Visit: no new symptoms Associated Symptoms: none Treatments Prior to Arrival: other (0) - Related Data Home Medications Medication Instructions Recorded Confirmed Omeprazole 20 mg PO DAILY 05/25/18 01/28/24 Multivitamins, Thera [Multivitamin 1 tab PO DAILY@1200 09/26/19 01/28/24 (formulary)] Cholecalciferol [Vitamin D3 (25 25 mcg PO DAILY@1200 10/04/21 01/28/24 Mcg = 1000 Iu)] Cyanocobalamin (Vitamin B-12) 1,000 mcg PO DAILY@1200 10/04/21 01/28/24 [Vitamin B-12] rOPINIRole HCL [Requip] 0.5 mg PO HS 07/03/22 01/28/24 Carboxymethylcellulose Sodium 1 drop LEFT EYE DAILY PRN 11/25/22 01/28/24 [Thera Tears] Latanoprost/Pf [Latanoprost 0.005% 1 drop RIGHT EYE HS 11/25/22 01/28/24 Eye Drop] Aspirin EC [Ecotrin Low Dose] 81 mg PO DAILY 01/16/23 01/28/24 L.acidoph,Paracasei, B.lactis 1 cap PO DAILY@1200 09/22/23 01/28/24 [Probiotic] Metoprolol Succinate [Metoprolol 25 mg PO DAILY 09/22/23 01/28/24 Succinate ER] Atorvastatin [Lipitor] 40 mg PO HS 12/11/23 01/28/24 EPINEPHrine (Auto Inject) [Epipen] 0.3 mg IM ONCE PRN 12/11/23 01/28/24 Ferrous Sulfate [Iron (65 MG 325 mg PO DAILY@1200 12/11/23 01/28/24 Elemental)] Ondansetron Odt [Zofran ODT] 4 mg PO DAILY PRN 12/11/23 01/28/24 Pioglitazone [Actos] 15 mg PO DAILY 12/11/23 01/28/24 Sennosides/Docusate Sodium [Senna 1 cap PO DAILY PRN 12/11/23 01/28/24 Plus 8.6-50 mg Softgel] Fluticasone/Umeclidin/Vilanter 1 puff INHALATION RT-DAILY 01/28/24 01/28/24 [Trelegy Ellipta 100-62.5-25] Sodium Bicarbonate Tab 650 mg PO BID@1200,2100 01/28/24 01/28/24 Tamsulosin [Flomax] 0.4 mg PO HS 01/28/24 01/28/24 hydrOXYzine pamoate [Vistaril] 25 mg PO DIRECTED PRN 01/28/24 01/28/24 Previous Rx's Medication Instructions Recorded Acetaminophen Tab [Tylenol] 650 mg PO Q6HR PRN tab 12/16/23 Apixaban [Eliquis] 5 mg PO BID tab 12/16/23 Gabapentin 300 mg PO HS 30 Days #30 cap 12/16/23 lisinopriL [Zestril] 2.5 mg PO DAILY tab 12/16/23 Allergies Allergy/AdvReac Type Severity Reaction Status Date / Time bee venom protein (honey bee) Allergy Severe Anaphylaxis Verified 09/28/23 07:19 latex Allergy Unknown Rash/Hives Verified 09/28/23 07:19 adhesive tape Allergy Unknown-Per Verified 09/28/23 07:19 Dr Dickens's office Review of Systems ROS Statement: Those systems with pertinent positive or pertinent negative responses have been documented in the HPI. ROS Other: All systems not noted in ROS Statement are negative. 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 "ENLARGED HEART VALVES" PER PATIENT. HX OF PROSTATE CANCER WITH SURGERY, HX OF THROAT CANCER WITH SURGERY-CHEMO AND RADIATION (2015), LOW IRON. [place] History of Any Multi-Drug Resistant Organisms: None Reported Past Surgical History: Orthopedic Surgery, Prostate Surgery Additional Past Surgical History / Comment(s): RIGHT SHOULDER X2, EGD'S, COLONOSCOPIES, MICAH CATARACTS, PATIENT STATES ESOPHAGUS REMOVED AND STOMACH USED. PROSTATE SX FOR CANCER, COLONOSCOPY, EGD, Past Anesthesia/Blood Transfusion Reactions: No Reported Reaction Past Psychological History: No Psychological Hx Reported Smoking Status: Never smoker Past Alcohol Use History: Unable to Obtain Past Drug Use History: Unable to Obtain - Past Family History Sister(s) Family Medical History: Cancer Additional Family Medical History / Comment(s): AT 13 YRS OF AGE. General Exam Limitations: no limitations, altered mental status General appearance: alert, in no apparent distress, anxious, in distress Head exam: Present: atraumatic, normocephalic, normal inspection Eye exam: Present: normal appearance, PERRL, EOMI. Absent: scleral icterus, conjunctival injection, periorbital swelling ENT exam: Present: normal exam, mucous membranes moist Neck exam: Present: normal inspection. Absent: tenderness, meningismus, lymphadenopathy Respiratory exam: Present: normal lung sounds bilaterally. Absent: respiratory distress, wheezes, rales, rhonchi, stridor Cardiovascular Exam: Present: regular rate, normal rhythm, normal heart sounds. Absent: systolic murmur, diastolic murmur, rubs, gallop, clicks GI/Abdominal exam: Present: soft, normal bowel sounds. Absent: distended, tenderness, guarding, rebound, rigid Extremities exam: Present: normal inspection, full ROM, normal capillary refill. Absent: tenderness, pedal edema, joint swelling, calf tenderness Back exam: Present: normal inspection Neurological exam: Present: alert, oriented X3, CN II-XII intact Psychiatric exam: Present: normal affect, normal mood Skin exam: Present: warm, dry, intact, normal color. Absent: rash Course Vital Signs 01/28/24 01/28/24 01/28/24 15:23 15:26 18:17 Temperature 98.4 F Pulse Rate 60 71 Pulse Rate [ 64 Pulse Oximetery ] Respiratory 16 16 Rate Blood Pressure 165/79 179/103 Blood Pressure [Left Arm] O2 Sat by Pulse 97 96 Oximetry 01/28/24 01/28/24 01/28/24 18:55 19:00 19:15 Temperature Pulse Rate 78 Pulse Rate [ 67 69 Pulse Oximetery ] Respiratory 16 15 15 Rate Blood Pressure 182/106 Blood Pressure 170/101 162/89 [Left Arm] O2 Sat by Pulse 96 96 95 Oximetry 01/28/24 01/28/24 01/28/24 19:30 19:45 20:00 Temperature Pulse Rate Pulse Rate [ 71 75 70 Pulse Oximetery ] Respiratory 16 16 16 Rate Blood Pressure Blood Pressure 157/105 157/98 170/91 [Left Arm] O2 Sat by Pulse 95 96 97 Oximetry - Reevaluation(s) Reevaluation #1: 01/28/24 17:06 Records reviewed Reevaluation #2: 01/28/24 17:07 Patient symptoms unchanged Reevaluation #3: 01/28/24 17:07 With informed results and questions answered Reevaluation #4: Was pt. sent in by a medical professional or institution (, [facility], INTERNAL COMBUSTION ENGINEER, urgent care, hospital, or fdc...) When possible be specific @ -no Did you speak to anyone other than the patient for history (EMS, parent, family, police, friend...)? What history was obtained from this source @ -no Did you review nursing and triage notes (agree or disagree)? Why? @ -agree Are old charts reviewed (outside hosp., previous admission, EMS record, old EKG, old radiological studies, urgent care reports/EKG's, fdc records)? Report findings @ -yes Differential Diagnosis (chest pain, altered mental status, abdominal pain women, abdominal pain men, vaginal bleeding, weakness, fever, dyspnea, syncope, headache, dizziness, GI bleed, back pain, seizure, CVA, palpatations, mental health, musculoskeletal)? @ -prior EKG interpreted by me (3pts min.). @ -yes X-rays interpreted by me (1pt min.). @ -no CT interpreted by me (1pt min.). @ -yes positive for hemorrhagic conversion of CVA U/S interpreted by me (1pt. min.). @ -no What testing was considered but not performed or refused? (CT, X-rays, U/S, labs)? Why? @ -none What meds were considered but not given or refused? Why? @ -none Did you discuss the management of the patient with other professionals (professionals i.e. , PA, INTERNAL COMBUSTION ENGINEER, lab, RT, psych nurse, child protective services social worker, granulator operator, teacher, child support officer, director of casework)? Give summary @ -no Was smoking cessation discussed for >3mins.? @ -no Was critical care preformed (if so, how long)? @ -yes31 Were there social determinants of health that impacted care today? How? (Homelessness, low income, unemployed, alcoholism, drug addiction, transportation, low edu. Level, literacy, decrease access to med. care, custodial, rehab)? @ -none Was there de-escalation of care discussed even if they declined (Discuss DNR or withdrawal of care, Hospice)? DNR status @ -no What co-morbidities impacted this encounter? (DM, HTN, Smoking, COPD, CAD, Cancer, CVA, ARF, Chemo, Hep., AIDS, mental health diagnosis, sleep apnea, morbid obesity)? @ -none Was patient admitted / discharged? Hospital course, mention meds given and route, prescriptions, significant lab abnormalities, going to OR and other pertinent info. 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 @ -no Drug Therapy requiring intensive monitoring for toxicity (Heparin, Nitro, Insulin, Cardizem)? @ -no Were any procedures done? @ -no Diagnosis/symptom? @ -Hemorrhagic conversion of prior CVA Acute, or Chronic, or Acute on Chronic? @ -Acute Uncomplicated (without systemic symptoms) or Complicated (systemic symptoms)? @ -Complicated Side effects of treatment? @ -no Exacerbation, Progression, or Severe Exacerbation? @ -exacerbation Poses a threat to life or bodily function? How? (Chest pain, USA, PR, pneumonia, PE, COPD, DKA, ARF, appy, cholecystitis, CVA, Diverticulitis, Homicidal, Suicidal, threat to staff... and all critical care pts) @ -yes hemorrhagic conversion of CVA Reevaluation #5: Differential Altered Mental Status: Hypoglycemia, DKA, hypercapnia, ETOH, overdose, CO poisoning, trauma, myxedema coma, HTN encephalopathy, infection, encephalitis, psychosis, intercranial hemorrhage, hepatic encephalopathy, meningitis, CVA, this is not meant to be an all-inclusive list Differential CVA Ischemic stroke, hemorrhagic stroke, brain tumor, atypical migraine, Wernicke's encephalopathy, seizure, multiple sclerosis, meningitis, encephalitis, hypoglycemia, Guillain-Cade, electrolytes disturbance, myasthenia gravis.... 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 - Lab Data Result diagrams: 01/28/24 15:37 01/28/24 15:37 Lab Results 01/28/24 01/28/24 01/28/24 Range/Units 15:37 15:37 15:37 WBC 2.9 L (3.8-10.6) k/uL RBC 3.65 L (4.30-5.90) m/uL Hgb 12.5 L D (13.0-17.5) gm/dL Hct 40.1 (39.0-53.0) % MCV 109.9 H (80.0-100.0) fL MCH 34.4 (25.0-35.0) pg MCHC 31.3 (31.0-37.0) g/dL RDW 14.0 (11.5-15.5) % Plt Count 164 (150-450) k/uL MPV 7.5 Neutrophils % 57 % Lymphocytes % 19 % Monocytes % 11 % Eosinophils % 9 % Basophils % 1 % Neutrophils # 1.6 (1.3-7.7) k/uL Lymphocytes # 0.5 L (1.0-4.8) k/uL Monocytes # 0.3 (0-1.0) k/uL Eosinophils # 0.3 (0-0.7) k/uL Basophils # 0.0 (0-0.2) k/uL Manual Slide Review Performed Hypochromasia Slight Macrocytosis Marked A PT 11.9 (10.0-12.5) sec INR 1.1 (<1.2) APTT 26.7 (22.0-30.0) sec Sodium 138 (137-145) mmol/L Potassium 4.8 (3.5-5.1) mmol/L Chloride 111 H (98-107) mmol/L Carbon Dioxide 24 (22-30) mmol/L Anion Gap 3 mmol/L BUN 23 H (9-20) mg/dL Creatinine 0.82 (0.66-1.25) mg/dL Est GFR (CKD-EPI)AfAm >90 (>60 ml/min/1.73 sqM) Est GFR (CKD-EPI)NonAf 85 (>60 ml/min/1.73 sqM) Glucose 111 H (74-99) mg/dL Plasma Lactic Acid Arturo (0.7-2.0) mmol/L Calcium 8.8 (8.4-10.2) mg/dL Phosphorus 3.4 (2.5-4.5) mg/dL Magnesium 1.8 (1.6-2.3) mg/dL Total Bilirubin 0.8 (0.2-1.3) mg/dL AST 29 (17-59) U/L ALT 17 (4-49) U/L Alkaline Phosphatase 83 (38-126) U/L Troponin I (0.000-0.034) ng/mL NT-Pro-B Natriuret Pep 6500 pg/mL Total Protein 6.4 (6.3-8.2) g/dL Albumin 3.4 L (3.5-5.0) g/dL 01/28/24 01/28/24 Range/Units 15:37 15:37 WBC (3.8-10.6) k/uL RBC (4.30-5.90) m/uL Hgb (13.0-17.5) gm/dL Hct (39.0-53.0) % MCV (80.0-100.0) fL MCH (25.0-35.0) pg MCHC (31.0-37.0) g/dL RDW (11.5-15.5) % Plt Count (150-450) k/uL MPV Neutrophils % % Lymphocytes % % Monocytes % % Eosinophils % % Basophils % % Neutrophils # (1.3-7.7) k/uL Lymphocytes # (1.0-4.8) k/uL Monocytes # (0-1.0) k/uL Eosinophils # (0-0.7) k/uL Basophils # (0-0.2) k/uL Manual Slide Review Hypochromasia Macrocytosis PT (10.0-12.5) sec INR (<1.2) APTT (22.0-30.0) sec Sodium (137-145) mmol/L Potassium (3.5-5.1) mmol/L Chloride (98-107) mmol/L Carbon Dioxide (22-30) mmol/L Anion Gap mmol/L BUN (9-20) mg/dL Creatinine (0.66-1.25) mg/dL Est GFR (CKD-EPI)AfAm (>60 ml/min/1.73 sqM) Est GFR (CKD-EPI)NonAf (>60 ml/min/1.73 sqM) Glucose (74-99) mg/dL Plasma Lactic Acid Arturo 1.4 (0.7-2.0) mmol/L Calcium (8.4-10.2) mg/dL Phosphorus (2.5-4.5) mg/dL Magnesium (1.6-2.3) mg/dL Total Bilirubin (0.2-1.3) mg/dL AST (17-59) U/L ALT (4-49) U/L Alkaline Phosphatase (38-126) U/L Troponin I <0.012 (0.000-0.034) ng/mL NT-Pro-B Natriuret Pep pg/mL Total Protein (6.3-8.2) g/dL Albumin (3.5-5.0) g/dL - EKG Data -: EKG Interpreted by Me (EKG is atrial fibrillation 61 QRS 94 QTc 446) - Radiology Data Radiology results: report reviewed (CT brain is positive for intracerebral hemorrhage hemorrhagic conversion), image reviewed Critical Care Time Critical Care Time: Yes Total Critical Care Time: 31 Disposition Clinical Impression: Hypertension, Intracerebral hemorrhage, Coagulopathy Disposition: TRANSFER TO SHORT TERM HOSP Condition: Critical Is patient prescribed a controlled substance at d/c from ED?: No Referrals: Lexi Blackwood MD [Primary Care Provider] - 1-2 days Time of Disposition: 18:00 - Out of Hospital Transfer - Req. Specs Out of Hospital Transfer - Requested Specifics: Other Emergency Center ([facility]
[2024-01-28 16:15] LABS: Basophils % (A) 1 %; Eosinophils # (A) 0.3 k/uL (0-0.7); Eosinophils % (A) 9 %; HCT 40.1 % (39.0-53.0); Hypochromasia Slight; Lymphocytes # (A) 0.5 k/uL (1.0-4.8); Lymphocytes % (A) 19 %; MCH 34.4 pg (25.0-35.0); MCHC 31.3 g/dL (31.0-37.0); MCV 109.9 fL (80.0-100.0); Macrocytosis Marked; Mean Platelet Volume 7.5; Monocytes # (A) 0.3 k/uL (0-1.0); Monocytes % (A) 11 %; Neutrophils # (A) 1.6 k/uL (1.3-7.7); Neutrophils % (A) 57 %; Platelet Count 164 k/uL (150-450); RBC 3.65 m/uL (4.30-5.90); WBC 2.9 k/uL (3.8-10.6)
[2024-01-28 16:19] LABS: ALT 17 U/L (4-49); AST 29 U/L (17-59); African American GFR (CKD) >90 (>60 ml/min/1.73 sqM); Albumin 3.4 g/dL (3.5-5.0); Alkaline Phosphatase 83 U/L (38-126); Anion Gap 3 mmol/L; Blood Urea Nitrogen 23 mg/dL (9-20); Calcium 8.8 mg/dL (8.4-10.2); Carbon Dioxide 24 mmol/L (22-30); Chloride 111 mmol/L (98-107); Glucose 111 mg/dL (74-99); Magnesium 1.8 mg/dL (1.6-2.3); Non-African American GFR(CKD) 85 (>60 ml/min/1.73 sqM); Phosphorus 3.4 mg/dL (2.5-4.5); Potassium 4.8 mmol/L (3.5-5.1); Sodium 138 mmol/L (137-145); Total Bilirubin 0.8 mg/dL (0.2-1.3); Total Protein 6.4 g/dL (6.3-8.2)
[2024-01-28 16:27] LABS: NT-Pro-B-Type Natriuretic Pept 6500 pg/mL
[2024-01-28 16:34] LABS: INR 1.1 (<1.2); Partial Thromboplastin Time 26.7 sec (22.0-30.0); Prothrombin Time 11.9 sec (10.0-12.5)
[2024-01-28] MEDS: SODIUM CHLORIDE 0.9% 1,000 ML IV STA (16:57)
[2024-01-28 17:29] LABS: HGB 12.5 gm/dL (13.0-17.5)
--- NOTE | 2024-01-28 17:53 | CT ---
EXAMINATION TYPE: CT brain wo con DATE OF EXAM: 01/28/2024 HISTORY: HTN,ams CT DLP: 1095.4 mGycm. Automated Exposure Control for Dose Reduction was Utilized. TECHNIQUE: CT scan of the head is performed without contrast. COMPARISON: CT 12/15/2023 FINDINGS: The large right temporoparietal infarction in the vascular territory of the right MCA is redemonstrat ed, with similar dimensions and extent of involvement but with new gyriform-type pattern of high atte nuation on the present scan consistent with hemorrhagic conversion. This hemorrhagic conversion does not produce midline shift of structures or even mass effect upon the right lateral ventricle. There are no other intra-axial lesions. The extra-axial compartment is negative. The paranasal sinuses, middle ear cavities, and mastoid sinus air cells are clear. Orbits are unremarkable. IMPRESSION: Hemorrhagic conversion of the previously seen right MCA territory infarction since the previous CT , with no associated mass effect.
[2024-01-28] MEDS: LABETALOL 5 MG/ML VIAL MDV IVP STA (18:12)
[2024-01-28] MEDS ORDERED: HUMAN PROTHROMBIN COMPLX 500 UNIT/16 ML VIAL IV ONE (18:30)
[2024-01-28] MEDS: Kcentra PER PHARMACY 1 EACH MISC MISCELLANE PRN (18:34)
[2024-01-28] MEDS: HUMAN PROTHROMBIN COMPLX IV ONE (18:35)
[2024-01-28 20:16] VITALS: BP 182/106; PULSE 78; RESP 16; TEMP 98.4
== END 2024-01-28 20:09 | disposition short-term general hospital (02) ==
LOC: EC 15:18
DX: D68.9 Coagulation defect, unspecified (principal); I10 Essential (primary) hypertension; I61.9 Nontraumatic intracerebral hemorrhage, unspecified; Z91.030 Bee allergy status; Z91.040 Latex allergy status; Z91.048 Other nonmedicinal substance allergy status; Z86.73 Personal history of transient ischemic attack (TIA), and cerebral infarction without residual deficits
CPT/HCPCS: 36415; 93005; 83880; 80053; 83605; 83735; 84100; 84484; 85025; 85610; 85730; 70450; 99291; 96374; 96375; 96361 ×3; J7168; J1920

== ENCOUNTER 2024-03-09 11:02 | Inpatient (IN) | payer MEDICARE, OTHER ==
[2024-03-09 11:19] LABS: Glucose,Whole Blood 116 mg/dL (70-110)
--- NOTE | 2024-03-09 11:59 | ED ---
General Adult HPI - General Chief complaint: Neuro Symptoms/Deficit Stated complaint: Neuro Symp Time Seen by Provider: 03/09/24 11:34 Source: patient, EMS Mode of arrival: EMS Limitations: no limitations - History of Present Illness Initial comments: Dictation was produced using [employer] dictation software. please excuse any grammatical, word or spelling errors. Chief Complaint: 79-year-old male presents to the emergency department for right-sided weakness History of Present Illness: Patient is a 71-year-old male history of present illness obtained from daughter at the bedside states that he was being given a bath by daughter when all of a sudden he was reaching out with his hand and his right arm seem to be a little shaky and weak. She also noticed that his speech was slurred and his right face was drooping. Stated lasted for several minutes however resolved on its own. At the bedside patient appears to be in his usual state of health. Last month patient had strokelike symptoms was found to have intracranial bleed and transferred to [facility]. Patient has been at home for approximately 1 month recovering. The ROS documented in this emergency department record has been reviewed and confirmed by me. Those systems with pertinent positive or negative responses have been documented in the HPI. All other systems are other negative and/or noncontributory. - Related Data Home Medications Medication Instructions Recorded Confirmed Omeprazole 20 mg PO DAILY 05/25/18 01/28/24 Multivitamins, Thera [Multivitamin 1 tab PO DAILY@1200 09/26/19 01/28/24 (formulary)] Cholecalciferol [Vitamin D3 (25 25 mcg PO DAILY@1200 10/04/21 01/28/24 Mcg = 1000 Iu)] Cyanocobalamin (Vitamin B-12) 1,000 mcg PO DAILY@1200 10/04/21 01/28/24 [Vitamin B-12] rOPINIRole HCL [Requip] 0.5 mg PO HS 07/03/22 01/28/24 Carboxymethylcellulose Sodium 1 drop LEFT EYE DAILY PRN 11/25/22 01/28/24 [Thera Tears] Latanoprost/Pf [Latanoprost 0.005% 1 drop RIGHT EYE HS 11/25/22 01/28/24 Eye Drop] Aspirin EC [Ecotrin Low Dose] 81 mg PO DAILY 01/16/23 01/28/24 L.acidoph,Paracasei, B.lactis 1 cap PO DAILY@1200 09/22/23 01/28/24 [Probiotic] Metoprolol Succinate [Metoprolol 25 mg PO DAILY 09/22/23 01/28/24 Succinate ER] Atorvastatin [Lipitor] 40 mg PO HS 12/11/23 01/28/24 EPINEPHrine (Auto Inject) [Epipen] 0.3 mg IM ONCE PRN 12/11/23 01/28/24 Ferrous Sulfate [Iron (65 MG 325 mg PO DAILY@1200 12/11/23 01/28/24 Elemental)] Ondansetron Odt [Zofran ODT] 4 mg PO DAILY PRN 12/11/23 01/28/24 Pioglitazone [Actos] 15 mg PO DAILY 12/11/23 01/28/24 Sennosides/Docusate Sodium [Senna 1 cap PO DAILY PRN 12/11/23 01/28/24 Plus 8.6-50 mg Softgel] Fluticasone/Umeclidin/Vilanter 1 puff INHALATION RT-DAILY 01/28/24 01/28/24 [Trelegy Ellipta 100-62.5-25] Sodium Bicarbonate Tab 650 mg PO BID@1200,2100 01/28/24 01/28/24 Tamsulosin [Flomax] 0.4 mg PO HS 01/28/24 01/28/24 hydrOXYzine pamoate [Vistaril] 25 mg PO DIRECTED PRN 01/28/24 01/28/24 Previous Rx's Medication Instructions Recorded Acetaminophen Tab [Tylenol] 650 mg PO Q6HR PRN tab 12/16/23 Apixaban [Eliquis] 5 mg PO BID tab 12/16/23 Gabapentin 300 mg PO HS 30 Days #30 cap 12/16/23 lisinopriL [Zestril] 2.5 mg PO DAILY tab 12/16/23 Allergies Allergy/AdvReac Type Severity Reaction Status Date / Time bee venom protein (honey bee) Allergy Severe Anaphylaxis Verified 09/28/23 07:19 latex Allergy Unknown Rash/Hives Verified 09/28/23 07:19 adhesive tape Allergy Unknown-Per Verified 09/28/23 07:19 Dr Dickens's office Review of Systems ROS Statement: Those systems with pertinent positive or pertinent negative responses have been documented in the HPI. ROS Other: All systems not noted in ROS Statement are negative. 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 "ENLARGED HEART VALVES" PER PATIENT. HX OF PROSTATE CANCER WITH SURGERY, HX OF THROAT CANCER WITH SURGERY-CHEMO AND RADIATION (2016), LOW IRON. [place] History of Any Multi-Drug Resistant Organisms: None Reported Past Surgical History: Orthopedic Surgery, Prostate Surgery Additional Past Surgical History / Comment(s): RIGHT SHOULDER X2, EGD'S, COLONOSCOPIES, MICAH CATARACTS, PATIENT STATES ESOPHAGUS REMOVED AND STOMACH USED. PROSTATE SX FOR CANCER, COLONOSCOPY, EGD, Past Anesthesia/Blood Transfusion Reactions: No Reported Reaction Past Psychological History: No Psychological Hx Reported Smoking Status: Never smoker Past Alcohol Use History: Unable to Obtain Past Drug Use History: Unable to Obtain - Past Family History Sister(s) Family Medical History: Cancer Additional Family Medical History / Comment(s): AT 13 YRS OF AGE. General Exam - General Exam Comments Initial Comments: PHYSICAL EXAM: General Impression: Alert and oriented x3, not in acute distress HEENT: Normocephalic atraumatic, extra-ocular movements intact, pupils equal and reactive to light bilaterally, mucous membranes moist. Cardiovascular: Heart regular rate and rhythm Chest: Able to complete full sentences, no retractions, no tachypnea Abdomen: abdomen soft, non-tender, non-distended, no organomegaly Musculoskeletal: Pulses present and equal in all extremities, no peripheral edema Motor: no focal deficits noted Neurological: CN II-XII grossly intact, weakness to bilateral lower extremities, no facial droop, equal strength of upper extremities Skin: Intact with no visualized rashes Psych: Normal affect and mood Limitations: no limitations Course Vital Signs 03/09/24 03/09/24 03/09/24 11:03 11:24 12:00 Temperature 97.4 F L Pulse Rate 81 76 72 Respiratory 18 19 17 Rate Blood Pressure 152/94 152/94 167/99 O2 Sat by Pulse 99 98 97 Oximetry 03/09/24 13:30 Temperature Pulse Rate 68 Respiratory 19 Rate Blood Pressure 154/101 O2 Sat by Pulse 97 Oximetry EKG Findings - EKG Comments: EKG Findings:: My EKG interpretation: Ventricular rate 81, a flutter?, QRS 85, QTc 400. No ME prolongation, no QTC prolongation, no ST or T-wave changes noted. EKG compared to January 28, 2024 showing no changes. Overall, this EKG is unremarkable Medical Decision Making - Medical Decision Making Was pt. sent in by a medical professional or institution (, PA, UTILITY CLERK, urgent care, hospital, or residential...) When possible be specific @ -No Did you speak to anyone other than the patient for history (EMS, parent, family, police, friend...)? What history was obtained from this source @ -History obtained from daughter at the bedside Did you review nursing and triage notes (agree or disagree)? Why? @ -I reviewed and agree with nursing and triage notes Were old charts reviewed (outside hosp., previous admission, EMS record, old EKG, old radiological studies, urgent care reports/EKG's, residential records)? Report findings @ -No old charts were reviewed Differential Diagnosis (chest pain, altered mental status, abdominal pain women, abdominal pain men, vaginal bleeding, musculoskeletal, weakness, fever, dyspnea, syncope, headache, dizziness, GI bleed, back pain, seizure, CVA, palpatations, mental health)? @ - Differential CVA: Ischemic stroke, hemorrhagic stroke, brain tumor, atypical migraine, Wernicke's encephalopathy, seizure, multiple sclerosis, meningitis, encephalitis, hypog lycemia, Guillain-Cade, electrolytes disturbance, myasthenia gravis.... This is not meant to be an all-inclusive list EKG interpreted by me (3pts min.). @ -See above X-rays interpreted by me (1pt min.). @ -Chest x-ray shows no acute processes CT interpreted by me (1pt min.). @ -CT brain shows no acute processes U/S interpreted by me (1pt. min.). @ -None done What testing was considered but not performed or refused? (CT, X-rays, U/S, labs)? Why? @ -None What meds were considered but not given or refused? Why? @ -None Was smoking cessation discussed for >3mins.? @ -No Were there social determinants of health that impacted care today? How? (Homelessness, low income, unemployed, alcoholism, drug addiction, transportation, low edu. Level, literacy, decrease access to med. care, intermediate, re hab)? @ -No Was there de-escalation of care discussed even if they declined (Discuss DNR or withdrawal of care, Hospice)? DNR status @ -No What co-morbidities impacted this encounter? (DM, HTN, Smoking, COPD, CAD, Cancer, CVA, ARF, Chemo, Hep., AIDS, mental health diagnosis, sleep apnea, morbid obesity)? @ -CVA Was patient admitted / discharged? Hospital course, mention meds given and route, prescriptions, significant lab abnormalities, going to OR and other pertinent info. @ -79-year-old male presents the emergency department with TIA. Patient has no new focal neurologic deficits at the bedside. Vital signs stable. Physical examination is benign. Laboratory evaluation obtained findings within acceptable limits. CT imaging of the brain shows no acute processes. Chest x- ray negative. Patient given aspirin will be admitted with consultation to neurology for observation admission for TIA Did you discuss the management of the patient with other professionals (professionals i.e. , PA, UTILITY CLERK, lab, RT, psych nurse, protective services social worker, car starter, teacher, police liaison officer, high risk case manager)? Give summary @ -Case discussed with hospitalist for admission Was critical care preformed (if so, how long)? @ -No Undiagnosed new problem with uncertain prognosis? @ -No Drug Therapy requiring intensive monitoring for toxicity (Heparin, Nitro, Insulin, Cardizem)? @ -No Were any procedures done? @ -No Diagnosis/symptom? Acute, or Chronic, or Acute on Chronic? Uncomplicated (without systemic symptoms) or Complicated (systemic symptoms)? @ -TIA Side effects of treatment? @ -No Exacerbation, Progression, or Severe Exacerbation? @ -No Poses a threat to life or bodily function? How? (Chest pain, [place], NC, pneumonia, PE, COPD, DKA, ARF, appy, cholecystitis, CVA, Diverticulitis, Homicidal, S uicidal, threat to staff... and all critical care pts) @ -yes - Lab Data Result diagrams: 03/09/24 11:30 03/09/24 12:35 Lab Results 03/09/24 03/09/24 03/09/24 Range/Units 11:18 11:30 12:35 WBC 4.1 (3.8-10.6) k/uL RBC 3.97 L (4.30-5.90) m/uL Hgb 13.1 (13.0-17.5) gm/dL Hct 41.3 (39.0-53.0) % MCV 104.0 H D (80.0-100.0) fL MCH 33.1 (25.0-35.0) pg MCHC 31.8 (31.0-37.0) g/dL RDW 13.5 (11.5-15.5) % Plt Count 145 L (150-450) k/uL MPV 8.8 Neutrophils % (Manual) 78 % Lymphocytes % (Manual) 10 % Monocytes % (Manual) 10 % Eosinophils % (Manual) 2 % Neutrophils # (Manual) 3.20 (1.3-7.7) k/uL Lymphocytes # (Manual) 0.41 L (1.0-4.8) k/uL Monocytes # (Manual) 0.41 (0-1.0) k/uL Eosinophils # (Manual) 0.08 (0-0.7) k/uL Nucleated RBCs 0 (0-0) /100 WBC Manual Slide Review Performed Hypochromasia Slight Macrocytosis Slight PT 11.6 (10.0-12.5) sec INR 1.1 (<1.2) APTT 26.1 (22.0-30.0) sec Sodium (137-145) mmol/L Potassium (3.5-5.1) mmol/L Chloride (98-107) mmol/L Carbon Dioxide (22-30) mmol/L Anion Gap mmol/L BUN (9-20) mg/dL Creatinine (0.66-1.25) mg/dL Est GFR (CKD-EPI)AfAm (>60 ml/min/1.73 sqM) Est GFR (CKD-EPI)NonAf (>60 ml/min/1.73 sqM) Glucose (74-99) mg/dL POC Glucose (mg/dL) 116 H (70-110) mg/dL POC Glu Risk Prevention Engineer ID Rishi, Samantha Calcium (8.4-10.2) mg/dL Total Bilirubin (0.2-1.3) mg/dL AST (17-59) U/L ALT (4-49) U/L Alkaline Phosphatase (38-126) U/L Creatine Kinase (55-170) U/L Troponin I (0.000-0.034) ng/mL Total Protein (6.3-8.2) g/dL Albumin (3.5-5.0) g/dL 03/09/24 03/09/24 Range/Units 12:35 12:35 WBC (3.8-10.6) k/uL RBC (4.30-5.90) m/uL Hgb (13.0-17.5) gm/dL Hct (39.0-53.0) % MCV (80.0-100.0) fL MCH (25.0-35.0) pg MCHC (31.0-37.0) g/dL RDW (11.5-15.5) % Plt Count (150-450) k/uL MPV Neutrophils % (Manual) % Lymphocytes % (Manual) % Monocytes % (Manual) % Eosinophils % (Manual) % Neutrophils # (Manual) (1.3-7.7) k/uL Lymphocytes # (Manual) (1.0-4.8) k/uL Monocytes # (Manual) (0-1.0) k/uL Eosinophils # (Manual) (0-0.7) k/uL Nucleated RBCs (0-0) /100 WBC Manual Slide Review Hypochromasia Macrocytosis PT (10.0-12.5) sec INR (<1.2) APTT (22.0-30.0) sec Sodium 141 (137-145) mmol/L Potassium 4.0 (3.5-5.1) mmol/L Chloride 110 H (98-107) mmol/L Carbon Dioxide 25 (22-30) mmol/L Anion Gap 6 mmol/L BUN 17 (9-20) mg/dL Creatinine 0.77 (0.66-1.25) mg/dL Est GFR (CKD-EPI)AfAm >90 (>60 ml/min/1.73 sqM) Est GFR (CKD-EPI)NonAf 87 (>60 ml/min/1.73 sqM) Glucose 97 (74-99) mg/dL POC Glucose (mg/dL) (70-110) mg/dL POC Glu Risk Prevention Engineer ID Calcium 8.6 (8.4-10.2) mg/dL Total Bilirubin 0.9 (0.2-1.3) mg/dL AST 26 (17-59) U/L ALT 19 (4-49) U/L Alkaline Phosphatase 101 (38-126) U/L Creatine Kinase 47 L (55-170) U/L Troponin I 0.025 (0.000-0.034) ng/mL Total Protein 6.4 (6.3-8.2) g/dL Albumin 3.4 L (3.5-5.0) g/dL Disposition Clinical Impression: TIA (transient ischemic attack) Disposition: ADMITTED IP TO THIS HOSP Condition: Fair Referrals: Lexi Blackwood MD [Primary Care Provider] - 1-2 days Decision Time: 13:58
[2024-03-09 12:00] LABS: HCT 41.3 % (39.0-53.0); HGB 13.1 gm/dL (13.0-17.5); Hypochromasia Slight; MCH 33.1 pg (25.0-35.0); MCHC 31.8 g/dL (31.0-37.0); Macrocytosis Slight; Mean Platelet Volume 8.8; Platelet Count 145 k/uL (150-450); RBC 3.97 m/uL (4.30-5.90); RDW 13.5 % (11.5-15.5); WBC 4.1 k/uL (3.8-10.6)
--- NOTE | 2024-03-09 12:14 | XR ---
EXAMINATION TYPE: XR chest 2V DATE OF EXAM: 03/09/2024 COMPARISON: 12/13/2023 TECHNIQUE: PA and lateral views submitted. HISTORY: Altered mental status FINDINGS: The lungs are clear and there is no pneumothorax, pleural effusion, or focal pneumonia. Heart size enlarged. There is bilateral consolidation and small effusion. No pneumothorax. Arthropathy of the le ft shoulder and postsurgical change right shoulder. Degenerative change and postsurgical change of th e spine. IMPRESSION: 1. Cardiomegaly with bilateral consolidation and small effusion correlate for CHF with possible peric ardial effusion. Otherwise, consider pneumonia.
--- NOTE | 2024-03-09 12:30 | CT ---
EXAMINATION TYPE: CT brain wo con CT DLP: 1064.4 mGycm, Automated exposure control for dose reduction was used. DATE OF EXAM: 03/09/2024 12:05 PM COMPARISON: Prior CT brain from 01/28/2024. CLINICAL INDICATION:Male, 79 years old with history of Neuro deficit, acute, stroke suspected, Left s ided numbness and slurred speech. History of brain bleed. TECHNIQUE: Brain: Axial CT images of the brain were obtained with coronal and sagittal reformats created and rev iewed. Contrast used: None. Oral contrast used: None. FINDINGS: Brain: Extra-axial spaces: Left occipital lobe hemorrhage has evolved somewhat since the previous study in [place]. No new or increased amount of hemorrhage present. No other new acute findings in the brain paren chyma. Ventricular system: Within normal limits Cerebral parenchyma: No acute intraparenchymal hemorrhage or mass effect. The apple-white junction is predominantly well differentiated. Cerebellum: Unremarkable. Mass effect: No evidence of midline shift. Intracranial vasculature: unremarkable Soft tissues: Normal. Calvarium/osseous structures: No depressed skull fracture. Paranasal sinuses and mastoid air cells: Mild scattered paranasal sinus disease. Visualized orbits: Orbital contents are intact. IMPRESSION: No acute intracranial process. Aging left parietal hemorrhage right MCA territory. No worsening or significant change other than fur ther evaluation into encephalomalacia.
[2024-03-09 12:56] LABS: INR 1.1 (<1.2); Partial Thromboplastin Time 26.1 sec (22.0-30.0); Prothrombin Time 11.6 sec (10.0-12.5)
[2024-03-09 12:59] LABS: ALT 19 U/L (4-49); AST 26 U/L (17-59); African American GFR (CKD) >90 (>60 ml/min/1.73 sqM); Albumin 3.4 g/dL (3.5-5.0); Alkaline Phosphatase 101 U/L (38-126); Anion Gap 6 mmol/L; Blood Urea Nitrogen 17 mg/dL (9-20); Calcium 8.6 mg/dL (8.4-10.2); Carbon Dioxide 25 mmol/L (22-30); Chloride 110 mmol/L (98-107); Creatine Kinase 47 U/L (55-170); Glucose 97 mg/dL (74-99); Non-African American GFR(CKD) 87 (>60 ml/min/1.73 sqM); Sodium 141 mmol/L (137-145); Total Bilirubin 0.9 mg/dL (0.2-1.3); Total Protein 6.4 g/dL (6.3-8.2)
[2024-03-09 13:31] LABS: Eosinophils # (M) 0.08 k/uL (0-0.7); Lymphocytes # (M) 0.41 k/uL (1.0-4.8); Monocytes # (M) 0.41 k/uL (0-1.0); Neutrophils % (M) 78 %; Nucleated Red Blood Cells 0 /100 WBC (0-0); Total Cells Counted 100
[2024-03-09] MEDS ORDERED: NALOXONE 0.4 MG/ML 1 ML VIAL IV PRN (13:55)
[2024-03-09] MEDS: ASPIRIN 81 MG PO STA (14:07)
[2024-03-09] MEDS: ONDANSETRON 4 MG/2 ML VIAL IVP PRN (17:07)
[2024-03-09] MEDS: lisinopriL 5 MG TAB PO SCH (17:07)
[2024-03-09] MEDS: METOPROLOL SUCCINATE (ER) 25 MG TAB.ER.24H PO SCH (17:07)
[2024-03-09] MEDS: ATORVASTATIN 40 MG TAB PO SCH (21:10)
[2024-03-09] MEDS: SENNOSIDES 8.6 MG TAB PO SCH (21:10)
[2024-03-09] MEDS: TAMSULOSIN 0.4 MG CAP.ER.24H PO SCH (21:10)
[2024-03-09] MEDS: GABAPENTIN 300 MG CAP PO SCH (21:10)
[2024-03-09] MEDS: ACETAMINOPHEN TAB 325 MG TAB PO PRN (21:11)
[2024-03-10] MEDS: ASPIRIN 81 MG PO SCH (08:48)
--- NOTE | 2024-03-10 09:24 | P.CNNES ---
History of Present Illness Consult date: 03/09/24 Requesting physician: Camilo Pérez Reason for Consult: TIA History of Present Illness: Patient is a 79-year-old male came to the hospital by ambulance today at 11:02 AM for possible stroke/TIA. Patient's and daughter were present, who also provided the history. They mentioned that this morning patient wanted to get shower. He sat on the commode and reach the bar to pull self and started shaking. Patient's had to help him. She noticed that there was right facial droop, speech was slurred. She had to help his hand to get onto the bar. This episode lasted for about 10-15 minutes and then everything resolved. They called the ambulance and was brought to the hospital. As per EMS flow sheet, it was mentioned that patient's was assisting patient into the bathroom for a shower when his left hand and arm began to shake uncontrollably. She sat him down on the toilet and noted that he had some facial drooping on the left side along with some slurred speech. Patient had a CVA approximately 6-7 weeks ago. He was given TPA for blood clot, while in the hospital patient developed bleed then transferred to [facility]. Patient has some left over speech problems and left-sided weakness from CVA. When they arrived, patient was alert and oriented 3. No signs of facial drooping or s lurred speech. Patient was able to move all extremities equally. There was no chest pain or headache. Patient's vitals were blood pressure 158/88, pulse rate 94, respiration 18 and saturation 97%. Blood test shows normal WBC hemoglobin is 13.1 with elevated MCV 104.0. Platelets are 145. PT/PTT normal, CMP normal. CK 47. EKG shows atrial fibrillation, CT head showed no acute intracranial process. Aging right parietal hemorrhage right MCA territory. No worsening or significant change oth er than further evaluation into encephalomalacia. Patient has history of atrial fibrillation on Coumadin. Patient presented with speech difficulty and left hemiparesis on 12/11/2023 for which patient received TPA. Patient's INR was subtherapeutic. Patient had undergone lumbar surgery previously on 09/28/2023. Patient presented to the ER on 01/28/2024 with abnormal labs and elevated blood pressure. Patient was found to have hemorrhagic conversion of his right MCA territory stroke. He was transferred to [facility]. He stayed at [facility] from 01/28/2024 to 02/10/2024. Patient is off anticoagulants or antiplatelets. Patient currently takes omeprazole 20 mg, multivitamin, B12, vitamin D, ropinirole, metoprolol, Lipitor 40 g, gabapentin 300 mg at bedtime, lisinopril and Actos. Review of Systems Constitutional: Denies chills, Denies fever Eyes: left loss of peripheral vision, denies blurred vision, denies pain Ears: bilateral: decreased hearing, deny: ear discharge Ears, nose, mouth and throat: Denies headache, Denies sore throat Cardiovascular: Reports shortness of breath (COPD), Denies chest pain Respiratory: Denies cough, Denies excessive sputum Gastrointestinal: Reports nausea, Reports vomiting, Denies abdominal pain, Denies diarrhea Integumentary: Denies pruritus, Denies rash Neurological: Reports as per HPI Past Medical History Past Medical History: Cancer, Heart Failure, COPD, CVA/TIA, Diabetes Mellitus, GERD/Reflux, Hyperlipidemia, Hypertension, Prostate Disorder Additional Past Medical History / Comment(s): COPD WITH SOB (NO RX)-( [employer] FOR 45 YEARS). "ENLARGED HEART VALVES" PER PATIENT. HX OF PROSTATE CANCER WITH SURGERY, HX OF THROAT CANCER WITH SURGERY-CHEMO AND RADIATION (2016), L[place] IRON. [place] History of Any Multi-Drug Resistant Organisms: None Reported Past Surgical History: Orthopedic Surgery, Prostate Surgery Additional Past Surgical History / Comment(s): RIGHT SHOULDER X2, EGD'S, COLONOSCOPIES, MICAH CATARACTS, PATIENT STATES ESOPHAGUS REMOVED AND STOMACH USED. PROSTATE SX FOR CANCER, COLONOSCOPY, EGD, Past Anesthesia/Blood Transfusion Reactions: No Reported Reaction Past Psychological History: No Psychological Hx Reported Smoking Status: Never smoker Past Alcohol Use History: Unable to Obtain Past Drug Use History: Unable to Obtain - Past Family History Sister(s) Family Medical History: Cancer Additional Family Medical History / Comment(s): AT 13 YRS OF AGE. Medications and Allergies Home Medications Medication Instructions Recorded Confirmed Type Omeprazole 20 mg PO DAILY 05/25/18 03/09/24 History Multivitamins, Thera [Multivitamin 1 tab PO DAILY@1200 09/26/19 03/09/24 History (formulary)] Cholecalciferol [Vitamin D3 (25 25 mcg PO DAILY@1200 10/04/21 03/09/24 History Mcg = 1000 Iu)] Cyanocobalamin (Vitamin B-12) 1,000 mcg PO DAILY@1200 10/04/21 03/09/24 History [Vitamin B-12] rOPINIRole HCL [Requip] 0.5 mg PO HS 07/03/22 03/09/24 History Carboxymethylcellulose Sodium 1 drop LEFT EYE DAILY PRN 11/25/22 03/09/24 History [Thera Tears] Latanoprost/Pf [Latanoprost 0.005% 1 drop RIGHT EYE HS 11/25/22 03/09/24 History Eye Drop] L.acidoph,Paracasei, B.lactis 1 cap PO DAILY@1200 09/22/23 03/09/24 History [Probiotic] Metoprolol Succinate [Metoprolol 25 mg PO DAILY 09/22/23 03/09/24 History Succinate ER] Atorvastatin [Lipitor] 40 mg PO HS 12/11/23 03/09/24 History EPINEPHrine (Auto Inject) [Epipen] 0.3 mg IM ONCE PRN 12/11/23 03/09/24 History Ferrous Sulfate [Iron (65 MG 325 mg PO DAILY@1200 12/11/23 03/09/24 History Elemental)] Gabapentin 300 mg PO HS 30 Days #30 cap 12/16/23 03/09/24 Rx Fluticasone/Umeclidin/Vilanter 1 puff INHALATION RT-DAILY 01/28/24 03/09/24 History [Trelegy Ellipta 100-62.5-25] Tamsulosin [Flomax] 0.4 mg PO HS 01/28/24 03/09/24 History Acetaminophen [Tylenol Arthritis] 650 mg PO Q6H PRN 03/09/24 03/09/24 History Lanolin/Mineral Oil [Eucerin 1 applic TOPICAL BID 03/09/24 03/09/24 History Original Lotion] Pioglitazone [Actos] 15 mg PO DAILY 03/09/24 03/09/24 History Sennosides [Senokot] 8.6 mg PO HS 03/09/24 03/09/24 History lisinopriL [Zestril] 5 mg PO DAILY 03/09/24 03/09/24 History Allergies Allergy/AdvReac Type Severity Reaction Status Date / Time bee venom protein (honey bee) Allergy Severe Anaphylaxis Verified 03/09/24 15:27 latex Allergy Unknown Rash/Hives Verified 03/09/24 15:27 adhesive tape Allergy Unknown-Per Verified 03/09/24 15:27 Dr Dickens's office Physical Examination - Vital Signs Vital Signs: Vital Signs Temp Pulse Resp BP Pulse Ox 03/09/24 14:04 71 20 156/92 95 03/09/24 13:30 68 19 154/101 97 03/09/24 12:00 72 17 167/99 97 03/09/24 11:24 76 19 152/94 98 03/09/24 11:03 97.4 F L 81 18 152/94 99 Intake and Output 03/09/24 03/09/24 03/09/24 06:59 14:59 22:59 Other: Weight 69.853 kg Patient is an elderly male, in no acute distress. Patient is alert awake oriented to time place and person. He knows it is February 2024 and that he is in [facility] in [place] and name of the current president. Speech is slightly slow and language functions are normal. Patient can name and repeat very well. No aphasia or dysarthria. Attention, concentration and fund of knowledge is adequate. Detailed testing deferred. Patient has slightly slow mentation. On cranial nerve examination, pupils are equal, round and reacting to light, visual villagomez revealed left upper quadrant visual field deficit. In the left lower quadrant patient neglects on double simultaneous stimulation. Extraocular muscles are intact with no nystagmus. Face is symmetric, tongue protrudes to the midline. Palatal elevation and sensation normal, hearing is moderately decreased and shoulder shrug normal, facial sensation normal. On muscle strength testing, there is no pronator drift and the strength is nor mal in arms and legs distally and proximally, except left deltoid which is 5- related to rotator cuff issues as well. Deep tendon reflexes are symmetric 2+. Plantars are flat. Sensory to touch is equal with no neglect on double simultaneous stimulation. Cerebellar function showed no ataxia for [id number]-[id number] testing. No ataxia for hcaw-[id number]-mcuv testing on either side. Tone and bulk of muscles normal. Gait deferred.. On general examination, there is no carotid bruit or murmur, S1-S2 audible. Chest is clear on consultation. Abdomen is soft nontender. No organomegaly, bowel sounds present. Peripheral pulses are present. No peripheral edema. Results - Laboratory Findings CBC and BMP: 03/09/24 11:30 03/09/24 12:35 Abnormal Lab Findings: Abnormal Labs 03/09/24 03/09/24 03/09/24 11:18 11:30 12:35 RBC 3.97 L MCV 104.0 H D Plt Count 145 L Lymphocytes # (Manual) 0.41 L Chloride 110 H POC Glucose (mg/dL) 116 H Creatine Kinase 47 L Albumin 3.4 L Assessment and Plan Assessment: * Possible TIA manifesting with left arm weakness, facial droop and slurred speech. Rule out focal seizure. 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 * Hypertension * Diabetes * Hyperlipidemia * Atrial fibrillation, currently not on anticoagulation because of recent hemorrhagic conversion. * Neuropathy * Chronic back pain * B12 deficiency * History of severe left M2 stenosis. Plan: * Patient has a possible TIA. Patient to be started on aspirin 81 mg daily. No anticoagulation because of recent hemorrhagic conversion of the CVA. Informed patient and his family about risk of worsening hemorrhage even with a spirin, but the benefits outweigh the risks at this time. They understand the risks. * Recommend 2-D echo to rule out any intracardiac thrombus * EEG rule out epileptiform activity. * Lipid panel with cholesterol 89, LDL 33, HDL 45, triglycerides 51 on 12/11/2033. Continue Lipitor 40 mg daily. * Blood pressure well controlled. * Check hemoglobin A1c * Neurology will follow. Thank you for the consult.
[2024-03-10] MEDS ORDERED: NON FORMULARY DRUG (Acetaminophen [Tylenol Arthritis] 650 MG Tablet) PO PRN (14:01)
[2024-03-10] MEDS ORDERED: ARTIFICIAL TEARS-HYPROMELLOSE DROPS 15 ML BTL LEFT EYE PRN (14:01)
[2024-03-10] MEDS: IPRATROPIUM 0.5 MG/2.5 ML NEBU INHALATION SCH (16:18)
[2024-03-10] MEDS: SYMBICORT 80-4.5 MCG INHALER INHALATION SCH (19:39)
[2024-03-10] MEDS: LATANOPROST 0.005% OPHTH DROPS 2.5 ML BTL RIGHT EYE SCH (21:03)
[2024-03-10] MEDS: MINERAL OIL-WHITE PETROLATUM 120 GM JAR TOPICAL SCH (21:04)
--- NOTE | 2024-03-11 01:33 | EEG ---
ELECTROENCEPHALOGRAM REPORT PREAMBLE: This is a 79-year-old male with possible TIA, in which the patient had slurred speech, facial droop, and left arm twitching. Rule out any seizure activity. EEG FINDINGS: This is a 21-channel digital EEG recorded with video component, utilizing 10/20 international system with referential and bipolar montages. Background consists of well-developed, moderately well regulated, mixed frequencies of some alpha and fast frequency beta activity seen in bihemispheric region. Background is posterior dominant and does not seem to be clearly reactive to eye opening or closing. Different stages of sleep were not seen. Photic driving response was not clearly seen. No focal or generalized epileptiform activity was seen. IMPRESSION: This is essentially a normal awake and drowsy EEG. No focal, lateralized, or epileptiform activity was seen. The presence of slightly excessive low-voltage fast frequency beta activity suggests medication effect. MMMARKELLL / IJN: [id number] /
--- NOTE | 2024-03-11 01:33 | HP ---
HISTORY AND PHYSICAL CHIEF COMPLAINT: Right-sided weakness and speech difficulties. HISTORY OF PRESENT ILLNESS: This is a 79-year-old gentleman with a past medical history of multiple medical problems, admitted with right-sided weakness and some dysphasia. The patient was evaluated in the ER and CT scan of the brain showed left partial hemorrhage right MCA territory. The speech is somewhat improved at this time. Neurology is following the patient closely. The patient also had history of CVA involving the right posterior MCA territory in November with some hemorrhagic conversion. There is no history of any fever, rigors, or chills at this time. PAST MEDICAL HISTORY: Reviewed include stroke with hemorrhagic conversion, history of CHF, COPD, diabetes mellitus type 2. Rest of the history and rest of the chart is also reviewed. HOME MEDICATIONS: Reviewed include Actos. Dose and rest of medications reviewed. ALLERGIES: Bee venom, rest of allergies noted. FAMILY HISTORY: History of cancer in the family. SOCIAL HISTORY: No history of smoking. REVIEW OF SYSTEMS: Fourteen-point review is negative except as mentioned earlier. PHYSICAL EXAMINATION: VITAL SIGNS: Pulse is 70, blood pressure 100/62, respirations 16. HEENT: Conjunctivae normal. NECK: No JVD. CARDIOVASCULAR: S1, S2 muffled. RESPIRATIONS: Breath sounds diminished at the bases. No rhonchi. No crackles. ABDOMEN: Soft, nontender. LEGS: No edema. No swelling. NERVOUS SYSTEM: Minimal weakness on the right side. Minimal dysarthria and dysphasia also present. SKIN: No ulcer, rash, bleeding. JOINTS: No active deforming arthropathy. LABORATORY DATA: Reviewed. CT scan reviewed personally. ASSESSMENT: 1. Possible acute transient ischemic attack involving the left hemisphere. 2. Old/recent left posterior parietal infarct with hemorrhagic conversion. 3. Congestive heart failure. 4. Chronic obstructive pulmonary disease. 5. Cerebrovascular accident, transient ischemic attack. 6. Diabetes mellitus, type 2. 7. Multiple complex medical issues. RECOMMENDATIONS: Recommend to continue current management and continue symptomatic treatment. Continue with antiplatelet agents per Neurology. Continue the Lipitor. Monitor closely. PT, OT evaluation. Prognosis guarded because of multiple complex medical issues and further recommendations to follow. See orders for further details. We will discuss with Dr. Reyes. MMODL / IJN: [id number] /
--- NOTE | 2024-03-11 07:51 | CT ---
EXAMINATION TYPE: CT brain wo con DATE OF EXAM: 03/11/2024 COMPARISON: 03/09/2024 HISTORY: Follow up bleed. Priors in PACS. CT DLP: [address] of the brain was performed. The ventricles, basal cisterns and sulci overlying the cerebral convexities demonstrate mild enlargem ent. There is evolution of nonacute right MCA territory infarct and hemorrhage with no acute hemorrhage id entified at this time. There is no evidence for acute intracranial hemorrhage or sulcal effacement. There is decreased attenuation about the periventricular white matter and deep white matter of both c erebral hemispheres, compatible with chronic small vessel ischemia. Differential diagnosis does inclu de demyelination. No mass effects are seen.No midline shift. Osseous calvarium is intact. If symptoms persist consider MRI. IMPRESSION: 1. There is evolution of nonacute right MCA territory infarct and hemorrhage with no acute hemorrhage identified at this time.
[2024-03-11] MEDS ORDERED: NON FORMULARY DRUG (Fluticasone/Umeclidin/Vilanter [Trelegy Ellipta 100-62.5-25] 1 EACH Bl INHALATION SCH (08:00)
[2024-03-11 08:05] VITALS: BP 152/96; RESP 17; TEMP 97.9
[2024-03-11] MEDS: PIOGLITAZONE 15 MG TAB PO SCH (08:35)
[2024-03-11] MEDS: PANTOPRAZOLE 40 MG TABLET PO SCH (08:35)
--- NOTE | 2024-03-11 11:03 | P.PN ---
Subjective Progress Note Date: 03/10/24 Patient was seen for a follow-up. Patient's was also present. Offers no new complaints. Denies any headache. All symptoms resolved. Objective - Vital Signs Vital signs: Vital Signs Temp 97.7 F 03/10/24 13:51 Pulse 74 03/10/24 16:27 Resp 16 03/10/24 14:00 BP 100/63 03/10/24 07:10 Pulse Ox 95 03/10/24 13:51 FiO2 Intake & Output 03/09/24 03/10/24 03/10/24 18:59 06:59 18:59 Intake Total 236 Output Total 300 Balance -300 236 Weight 69.853 kg 69.8 kg Intake: Oral 236 Output: Urine 300 Other: # Voids 1 120 - Exam Examination completely unchanged. Patient is pleasant, sitting comfortably in the recliner. - Labs CBC & Chem 7: 03/09/24 11:30 03/09/24 12:35 Assessment and Plan Assessment: * Possible TIA manifesting with left arm weakness, facial droop and slurred speech. Rule out focal seizure. * History of CVA involving the right posterior MCA territory 12/11/2023 * History of hemorrhagic conversion of above CVA 01/28/2024. * Hypertension * Diabetes * Hyperlipidemia * Atrial fibrillation, currently not on anticoagulation because of recent hemorrhagic conversion. * Neuropathy * Chronic back pain * B12 deficiency * History of severe left M2 stenosis. Plan: * Patient has a possible TIA. Patient to be started on aspirin 81 mg daily. No anticoagulation because of recent hemorrhagic conversion of the CVA. Informed patient and his family about risk of worsening hemorrhage even with aspirin, but the benefits outweigh the risks at this time. They understand the risks. * 2D echo not done because patient had echo performed recently 12/11/2023 which revealed increased LV mass with reduced LV systolic function 30 to 35%. Mild concentric LVH. Moderate reduced global LV systolic function. Mildly increased left atrial diameter. Severely increased left atrial volume. Thickened aortic valve with moderate aortic stenosis. * EEG is essentially in normal awake and drowsy EEG. No focal, lateralized or epileptiform activity was seen. Presence of slightly excessive low voltage fast frequency beta activity suggest medication effect. No indication for antiepileptic medication at this time, as the EEG was normal. * Lipid panel with cholesterol 89, LDL 33, HDL 45, triglycerides 51 on 12/11/2033. Continue Lipitor 40 mg daily. * Blood pressure well controlled. * Hemoglobin A1c 5.2 on 06/11/2023. * Will repeat CT head in the morning. If remains stable, then will be clear for discharge.
[2024-03-11 12:21] VITALS: PULSE 75
[2024-03-11] MEDS: MULTIVITAMINS, THERA 1 EACH TAB PO SCH (12:58)
[2024-03-11] MEDS: FERROUS SULFATE 325 MG TAB PO SCH (12:58)
[2024-03-11] MEDS: LACTOBACILLUS ACIDOPHILUS/PECT 1 EACH CAPSULE PO SCH (12:58)
[2024-03-11] MEDS: CYANOCOBALAMIN 500 MCG TAB PO SCH (12:59)
[2024-03-11] MEDS: CHOLECALCIFEROL 25 MCG (1000 IU) TABLET PO SCH (12:59)
--- NOTE | 2024-03-11 17:37 | CA ---
Transthoracic Echo Report Name: Evan Webb Age: 79 Gender: M : 1945 Exam Date: 03/11/2024 09:48 Exam Location: [facility] Ht (in): 64 Wt (lb): 154 Ordering Physician: Lb Arizmendi MD Attending/Referring Phys: Superintendent Sales Nika Matute RDCS Procedure CPT: Indications: tia Cardiac Hx: Technical Quality: Good Contrast 1: Definity Total Dose (mL): 2 Contrast 2: Total Dose (mL): MEASUREMENTS (Male / Female) Normal Values 2D ECHO LV Diastolic Diameter PLAX 4.1 cm 4.2 - 5.9 / 3.9 - 5.3 cm LV Systolic Diameter PLAX 4.0 cm IVS Diastolic Thickness 1.3 cm 0.6 - 1.0 / 0.6 - 0.9 cm LVPW Diastolic Thickness 1.4 cm 0.6 - 1.0 / 0.6 - 0.9 cm LV Relative Wall Thickness 0.7 RV Internal Dim ED PLAX 3.4 cm LVOT Diameter 2.3 cm LA Systolic Diameter LX 5.7 cm 3.0 - 4.0 / 2.7 - 3.8 cm LV Diastolic Volume MOD BP 91.5 cm??? 67 - 155 / 56 - 104 cm??? LV Systolic Volume MOD BP 63.0 cm??? - 58 / 19 - 49 cm??? LV Ejection Fraction MOD BP 31.2 % >= 55 % LV Cardiac Index MOD BP 1480.2 cm???/min???m??? LV Diastolic Volume MOD 4C 94.5 cm??? LV Systolic Volume MOD 4C 61.8 cm??? LV Ejection Fraction MOD 4C 34.5 % LV Cardiac Index MOD 4C 1694.7 cm???/min???m??? LV Diastolic Length 4C 7.6 cm LV Systolic Length 4C 7.3 cm LV Diastolic Volume MOD 2C 86.4 cm??? LV Systolic Volume MOD 2C 62.0 cm??? LV Ejection Fraction MOD 2C 28.3 % LV Cardiac Index MOD 2C 1267.6 cm???/min???m??? LV Diastolic Length 2C 7.3 cm LV Systolic Length 2C 7.0 cm LA Volume 128.4 cm??? 18 - 58 / 22 - 52 cm??? LA Volume Index 71.7 cm???/m??? 16 - 28 cm???/m??? M-MODE Aortic Root Diameter MM 3.5 cm DOPPLER AV Peak Velocity 380.1 cm/s AV Peak Gradient 57.8 mmHg AV Mean Velocity 270.4 cm/s AV Mean Gradient 32.9 mmHg AV Velocity Time Integral 81.4 cm AI Peak Velocity 307.5 cm/s AI Peak Gradient 37.8 mmHg AI Pressure Half Time 797.1 ms LVOT Peak Velocity 84.9 cm/s LVOT Peak Gradient 2.9 mmHg LVOT Velocity Time Integral 18.5 cm LVOT Stroke Volume 78.7 cm??? LVOT Stroke Volume Index 45.0 ml/m??? LVOT Cardiac Index 4085.4 cm???/min???m??? AV Area Cont Eq vti 1.0 cm??? AV Area Cont Eq pk 1.0 cm??? MV Area PHT 6.1 cm??? MR Peak Velocity 589.0 cm/s MR Peak Gradient 138.8 mmHg MV Deceleration Time 155.2 ms TR Peak Velocity 346.2 cm/s TR Peak Gradient 47.9 mmHg Right Ventricular Systolic Press 61.5 mmHg FINDINGS Left Ventricle Left ventricular ejection fraction is estimated at 30-35 %. Left ventricular cavity size normal. Mildly increased septal wall thickness. Mildly increased left ventricular systolic volume. Moderately decreased left ventricular ejection fraction. Global left ventricular hypokinesis. No thrombus noted Right Ventricle Severe pulmonary hypertension. Right ventricular systolic pressure estimated at 62 mm hg. Mild right ventricular dilatation. Right Atrium Severe right atrial dilatation. No right atrial thrombus or mass seen. Negative agitated saline bubble study for right to left shunt. Left Atrium Severely increased left atrial diameter. Severely increased left atrial volume. Mildly increased left atrial area. No left atrial thrombus or mass present. Mitral Valve Structurally normal mitral valve. [id number] mitral regurgitation. Aortic Valve Moderate aortic valve sclerosis. Moderate aortic stenosis with a peak gradient of 58 mmHg and a mean gradient of 33 mmHg. Area around 1 cm2. Mild aortic regurgitation. Tricuspid Valve Structurally normal tricuspid valve. Moderate tricuspid regurgitation. Pulmonic Valve Structurally normal pulmonic valve. Mild pulmonic regurgitation. Pericardium No pericardial effusion. Moderate pleural effusion with thrombus Aorta Normal size aortic root and proximal ascending aorta. CONCLUSIONS Cardiomyopathy with severe LV dysfunction with an ejection fraction of 30-35% Severe pulmonary hypertension Negative bubble study Atrial enlargement Mild to moderate mitral regurgitation Moderate aortic stenosis with mild aortic regurgitation moderate tricuspid regurgitation Previewed by: Dr. Deven Yu MD (Electronically Signed) Final Date: 11 March 2024 17:37
--- NOTE | 2024-03-12 10:49 | P.PN ---
Subjective Progress Note Date: 03/11/24 Patient was seen for a follow-up. Patient is sitting comfortably in the recliner. Multiple family members are present. Patient's was also present. Offers no new complaints. Denies any headache. All symptoms resolved. Objective - Vital Signs Vital signs: Vital Signs Temp 97.9 F 03/11/24 07:00 Pulse 75 03/11/24 12:21 Resp 17 03/11/24 07:00 BP 152/96 03/11/24 07:00 Pulse Ox 94 L 03/11/24 08:49 FiO2 - Exam Examination completely unchanged. Patient is pleasant, sitting comfortably in the recliner. - Labs CBC & Chem 7: 03/09/24 11:30 03/09/24 12:35 Assessment and Plan Assessment: * Possible TIA manifesting with left arm weakness, facial droop and slurred speech. Rule out focal seizure with normal EEG. * History of CVA involving the right posterior MCA territory 12/11/2023 * History of hemorrhagic conversion of above CVA 01/28/2024. * Hypertension * Diabetes * Hyperlipidemia * Atrial fibrillation, currently not on anticoagulation because of recent hemorrhagic conversion. * Neuropathy * Chronic back pain * B12 deficiency * History of severe left M2 stenosis. Plan: * Patient has a possible TIA. Patient to be started on aspirin 81 mg daily. No anticoagulation because of recent hemorrhagic conversion of the CVA. Informed patient and his family about risk of worsening hemorrhage even with aspirin, but the benefits outweigh the risks at this time. They understand the risks. * 2D echo not done because patient had echo performed recently 12/11/2023 which revealed increased LV mass with reduced LV systolic function 30 to 35%. Mild concentric LVH. Moderate reduced global LV systolic function. Mildly increased left atrial diameter. Severely increased left atrial volume. Thickened aortic valve with moderate aortic stenosis. * EEG is essentially in normal awake and drowsy EEG. No focal, lateralized or epileptiform activity was seen. Presence of slightly excessive low voltage fast frequency beta activity suggest medication effect. No indication for antiepileptic medication at this time, as the EEG was normal. * Lipid panel with cholesterol 89, LDL 33, HDL 45, triglycerides 51 on 12/11/2033. Continue Lipitor 40 mg daily. * Blood pressure well controlled. * Hemoglobin A1c 5.2 on 06/11/2023. * Repeat CT head performed today showed evolution of the known acute right MCA territory infarct and hemorrhage with no acute hemorrhagic component identified. * Patient clear for discharge. Patient follows up with Dr. Cash, whom he will follow within 1 week.
--- NOTE | 2024-03-14 09:51 | P.DS ---
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 Patient will follow-up with Dr. Blackwood in the outpatient setting upon discharge. Patient is to continue with current medications including baby aspirin and outpatient follow-up with Dr. Cash neurology as scheduled. Total time taken is greater than 35 minutes. Hospital course This is a 79-year-old male who was recently admitted with right-sided weakness while in the shower with family and noticed to have some speech disturbances also. Patient undergoing neurological workup with concerns of TIA and symptoms have resolved. Patient also noted to have an old/recent CVA noted and also was at [facility] for hemorrhagic conversion in January 2024. Patient had not been on aspirin or Plavix due to this bleed. CT shows this finding with no worsening. Patient has been started on baby aspirin and instructed to follow-up with Dr. Cash his neurologist in the outpatient setting this week. Patient has been cleared by neurology. Patient would like to go home. Please refer to other consultation notes for further HPI. Currently no reports of chest pain, shortness of breath, or palpitations. Patient is afebrile. No reports of nausea or vomiting and patient is tolerating diet. Patient will be discharged home today. Guarded prognosis and high risk for readmissions. Physical exam: Gen: This is a 79-year-old male who is awake, alert and oriented x 3, well- developed, elderly appearing HEENT: Head is atraumatic, normocephalic. Pupils equal, round. Sclerae is anicteric. NECK: Supple. No JVD. No lymphadenopathy. No thyromegaly. LUNGS: Diminished breath sounds bilaterally otherwise clear to auscultation. No wheezes, a few scattered rhonchi. No intercostal retractions. HEART: S1, S2 are muffled ABDOMEN: Soft. Obese. Bowel sounds are present. No masses. No tenderness. EXTREMITIES: No pedal edema. No calf tenderness. NEUROLOGICAL: Patient is awake, alert and oriented x3. Cranial nerves 2 through 12 are grossly intact. Please refer to medication reconciliation sheet for a list of medications. The impression and plan of care has been dictated by Sita Godoy, Nurse Practitioner as directed. Dr. Mejia MD I have performed a history and examination and MDM of this patient, discussed the same with the dictator, and agree with the dictator's assessment and plan as written ,documented as a scribe. Based on total visit time, I have performed more than 50% of the visit. Patient Condition at Discharge: Fair Plan - Discharge Summary Discharge Rx Participant: Yes New Discharge Prescriptions: New Aspirin 81 mg PO DAILY #30 tab Continue Omeprazole 20 mg PO DAILY Multivitamins, Thera [Multivitamin (formulary)] 1 tab PO DAILY@1200 Cyanocobalamin (Vitamin B-12) [Vitamin B-12] 1,000 mcg PO DAILY@1200 Metoprolol Succinate [Metoprolol Succinate ER] 25 mg PO DAILY EPINEPHrine (Auto Inject) [Epipen] 0.3 mg IM ONCE PRN PRN Reason: Anaphylaxis Ferrous Sulfate [Iron (65 MG Elemental)] 325 mg PO DAILY@1200 Lanolin/Mineral Oil [Eucerin Original Lotion] 1 applic TOPICAL BID Sennosides [Senokot] 8.6 mg PO HS Cholecalciferol [Vitamin D3 (25 Mcg = 1000 Iu)] 25 mcg PO DAILY@1200 rOPINIRole HCL [Requip] 0.5 mg PO HS Latanoprost/Pf [Latanoprost 0.005% Eye Drop] 1 drop RIGHT EYE HS Carboxymethylcellulose Sodium [Thera Tears] 1 drop LEFT EYE DAILY PRN PRN Reason: Dry Eye(S) L.acidoph,Paracasei, B.lactis [Probiotic] 1 cap PO DAILY@1200 Atorvastatin [Lipitor] 40 mg PO HS Gabapentin 300 mg PO HS 30 Days #30 cap Tamsulosin [Flomax] 0.4 mg PO HS Fluticasone/Umeclidin/Vilanter [Trelegy Ellipta 100-62.5-25] 1 puff INHALATION RT-DAILY Acetaminophen [Tylenol Arthritis] 650 mg PO Q6H PRN PRN Reason: Pain lisinopriL [Zestril] 5 mg PO DAILY Pioglitazone [Actos] 15 mg PO DAILY Discharge Medication List Omeprazole 20 mg PO DAILY 05/25/18 [History] Multivitamins, Thera [Multivitamin (formulary)] 1 tab PO DAILY@1200 09/26/19 [History] Cholecalciferol [Vitamin D3 (25 Mcg = 1000 Iu)] 25 mcg PO DAILY@1200 10/04/21 [History] Cyanocobalamin (Vitamin B-12) [Vitamin B-12] 1,000 mcg PO DAILY@1200 10/04/21 [History] rOPINIRole HCL [Requip] 0.5 mg PO HS 07/03/22 [History] Carboxymethylcellulose Sodium [Thera Tears] 1 drop LEFT EYE DAILY PRN 11/25/22 [History] Latanoprost/Pf [Latanoprost 0.005% Eye Drop] 1 drop RIGHT EYE HS 11/25/22 [History] L.acidoph,Paracasei, B.lactis [Probiotic] 1 cap PO DAILY@1200 09/22/23 [History] Metoprolol Succinate [Metoprolol Succinate ER] 25 mg PO DAILY 09/22/23 [History] Atorvastatin [Lipitor] 40 mg PO HS 12/11/23 [History] EPINEPHrine (Auto Inject) [Epipen] 0.3 mg IM ONCE PRN 12/11/23 [History] Ferrous Sulfate [Iron (65 MG Elemental)] 325 mg PO DAILY@1200 12/11/23 [History] Gabapentin 300 mg PO HS 30 Days #30 cap 12/16/23 [Rx] Fluticasone/Umeclidin/Vilanter [Trelegy Ellipta 100-62.5-25] 1 puff INHALATION RT-DAILY 01/28/24 [History] Tamsulosin [Flomax] 0.4 mg PO HS 01/28/24 [History] Acetaminophen [Tylenol Arthritis] 650 mg PO Q6H PRN 03/09/24 [History] Lanolin/Mineral Oil [Eucerin Original Lotion] 1 applic TOPICAL BID 03/09/24 [History] Pioglitazone [Actos] 15 mg PO DAILY 03/09/24 [History] Sennosides [Senokot] 8.6 mg PO HS 03/09/24 [History] lisinopriL [Zestril] 5 mg PO DAILY 03/09/24 [History] Aspirin 81 mg PO DAILY #30 tab 03/11/24 [Rx] Follow up Appointment(s)/Referral(s): Frida Cash MD [REFERRING] - 1 Week Lexi Blackwood MD [Primary Care Provider] - 1-2 days Patient Instructions/Handouts: Transient Ischemic Attack (DC) Activity/Diet/Wound Care/Special Instructions: Activity limited until follow-up Follow-up with primary care provider on discharge Follow-up with neurology outpatient in 1 to 2 weeks Continue with baby aspirin daily per neurology and discuss further with neurologist and primary care provider Monitor for any signs of bleeding and notify your primary care provider and/or neurologist if having bleeding Discharge Disposition: HOME SELF-CARE
--- NOTE | 2024-03-14 18:04 | CDI ---
Documentation Clarification Form Date: 03/14/2024 05:52:11 PM From: Tracy Langley Phone: Admit Date: 03/10/2024 02:07:00 PM Patient Name: Evan Webb Visit Number: [id number] Discharge Date: 03/11/2024 03:01:00 PM ATTENTION: The Clinical Documentation Specialists (CDI) and [facility] Coding Staff appreciate your assistance in clarifying documentation. Please respond to the clarification below the line at the bottom and electronically sign. The CDI & [facility] Coding staff will review the response and follow-up if needed. Please note: Queries are made part of the Legal Health Record. If you have any questions, please contact the author of this message via ITS. Doctor/Provider: Obed Ba Your patient has the documented diagnosis of unspecified CHF per H&P Note. Additional information regarding the type of CHF is requested. History/Risk Factors: 79yo M, TIA, recent CVA r residuals, CHF, HTN, COPD, DMII w neuropathy, CBP, HLD Clinical Indicators: VS/Pulse OX: 97-99 Echo: CMwith severe LVdysfunctionwith an EF of 30-35%; Severepulmonary HTN; Negativebubblestudy; Atrialenlargement; Mild to moderateMR; ModerateAS with mild AR; moderateTR Chest x ray: The lungs are clear and there isnopneumothorax,pleural effusion, or focal pneumonia. Heart size enlarged. There is bilateral consolidation and small effusion. Nopneumothorax. Arthropathyof the LT shoulder and postsurgical change RT shoulder. Degenerative change and postsurgical change of the spine. Treatment: Patient undergoing neurological workup with concerns ofTIAand symptoms haveresolved. Patient also noted to have an old/recentCVAnoted [facility] Patient had not been on aspirin or Plavix due to this bleed. CTshows this finding with no worsening. Patient has been started on baby aspirin and instructed tofollow-up withDr. Wood neurologist in the outpatient setting this week. Patient has been cleared by neurology. In your professional opinion, can you please clarify the type of CHF if known? [ ] Chronic Systolic Heart Failure (reduced EF) [ ] Chronic Diastolic Heart Failure (preserved EF) [ ] Chronic Systolic & Diastolic Heart Failure [ ] Other, please specify [ ] Unable to determine (Template Last Revised: September 2020) Chronic Systolic Heart Failure (reduced EF) MTDD
== END 2024-03-11 15:01 | disposition home or self-care (01) | DRG 69 ==
LOC: EC 11:02 → 6NMEDSUR 13:56 → UNDODISOB 03-10 13:41 → OBSVTOIN 03-10 14:07
PROVIDERS: ADMIT Hospitalist; ATTEND Hospitalist
DX: G45.9 Transient cerebral ischemic attack, unspecified (principal); I61.1 Nontraumatic intracerebral hemorrhage in hemisphere, cortical; I69.354 Hemiplegia and hemiparesis following cerebral infarction affecting left non-dominant side; I50.22 Chronic systolic (congestive) heart failure; E11.40 Type 2 diabetes mellitus with diabetic neuropathy, unspecified; I11.0 Hypertensive heart disease with heart failure; G83.21 Monoplegia of upper limb affecting right dominant side; J44.9 Chronic obstructive pulmonary disease, unspecified; I48.91 Unspecified atrial fibrillation; I35.0 Nonrheumatic aortic (valve) stenosis; E78.5 Hyperlipidemia, unspecified; G89.29 Other chronic pain; M54.9 Dorsalgia, unspecified; E53.8 Deficiency of other specified B group vitamins; K21.9 Gastro-esophageal reflux disease without esophagitis; R29.810 Facial weakness; R47.81 Slurred speech; I69.328 Other speech and language deficits following cerebral infarction; Z79.01 Long term (current) use of anticoagulants; Z79.51 Long term (current) use of inhaled steroids; Z79.82 Long term (current) use of aspirin; Z79.84 Long term (current) use of oral hypoglycemic drugs; Z85.46 Personal history of malignant neoplasm of prostate; Z85.819 Personal history of malignant neoplasm of unspecified site of lip, oral cavity, and pharynx; Z92.21 Personal history of antineoplastic chemotherapy; Z92.3 Personal history of irradiation; Z79.899 Other long term (current) drug therapy; Z91.030 Bee allergy status; Z91.040 Latex allergy status; Z91.048 Other nonmedicinal substance allergy status; R47.02 Dysphasia
CPT/HCPCS: 36415; 70450; 71046; 80053; 82550; 84484; 85025; 85610; 85730; 93005; 93306; 94640; 94760; 95816; 96374; 99285

== ENCOUNTER 2024-06-08 07:33 | Inpatient (IN) | payer MEDICARE, OTHER ==
[2024-06-06 14:52] VITALS: BMI 28.1
[2024-06-08] MEDS: IV FLUID CONTINUATION 1,000 ML IV ONE (07:56)
[2024-06-08 08:14] LABS: Glucose,Whole Blood 93 mg/dL (70-110)
[2024-06-08] MEDS ORDERED: PROPOFOL 10 MG/ML 20 ML VIAL IV ONE (08:35)
[2024-06-08] MEDS ORDERED: LIDOCAINE 1% INJ 10MG/ML (20 ML MDV) ONE (08:35)
--- NOTE | 2024-06-08 08:52 | P.PCN ---
Date of Procedure: 06/08/24 Procedure(s) Performed: BRIEF HISTORY: Patient is a 79-year-old pleasant white male scheduled for an elective colonoscopy as a part of evaluation by history of colon polyps. PROCEDURE PERFORMED: Colonoscopy. PREOPERATIVE DIAGNOSIS: History of colon polyps. IV sedation per Anesthesia. PROCEDURE: After informed consent was obtained, the patient, was brought into the endoscopy unit. IV sedation was administered by Anesthesia under continuous monitoring. Digital rectal examination was normal. Initially the Olympus CF-160 flexible video colonoscope was then inserted in the rectum, gradually advanced into the cecum without any difficulty. Careful examination was performed as the scope was gradually being withdrawn. Ileocecal valve and the appendiceal orifice were visualized and appeared normal. Prep was excellent. Mucosa of the cecum, ascending colon, transverse colon, descending colon, sigmoid colon, and rectum appeared normal. Scattered sigmoid diverticulosis retroflexion was performed in the rectum and small internal hemorrhoids were seen. The patient tolerated the procedure well. IMPRESSION: Normal-appearing colon from rectum to cecum with no evidence of colorectal neoplasia. Scattered sigmoid diverticulosis Small internal hemorrhoids RECOMMENDATIONS: Findings of this examination were discussed with the patient as well as his family. He was advised to be on high-fiber diet and take fiber supplements on a regular basis..
--- NOTE | 2024-06-08 10:33 | XR ---
EXAMINATION TYPE: XR chest 1V portable DATE OF EXAM: 06/08/2024 Comparison: 03/09/2024 CT 09/28/2023 Clinical History: 79-year-old male EMESIS DURING PROCEDURE Findings: Partially visualized reverse right shoulder are suggested. Heart mildly enlarged known moderate to la rge hiatal hernia containing colon at the left base. Superimposed small left pleural effusion with ad jacent patchy left basilar opacity. Additional known gastric pull-through accounting for curvilinear right infrahilar opacity. There is some superimposed focal medial right basilar opacity also present. Impression: 1. Similar mild cardiomegaly. 2. Known moderate to large hiatal hernia containing colon at the left base. There is superimposed sma ll left pleural effusion with adjacent atelectasis and/or consolidation. 3. Right infrahilar opacity corresponding to gastric pull-through. There is superimposed focal medial right basilar atelectasis and/or consolidation. [facility], , 06/08/2024 10:30 AM
[2024-06-08] MEDS: IPRATROPIUM-ALBUTEROL 3 ML NEB INHALATION STA (10:52)
[2024-06-08] MEDS: ONDANSETRON 4 MG/2 ML VIAL IVP STA (11:49)
[2024-06-08] MEDS: METOPROLOL TARTRATE 5 MG/5 ML VIAL IVP STA (12:36)
[2024-06-08] MEDS: DILTIAZEM 125 MG in SODIUM CHLORIDE 0.9% 100 ML IV SCH ×2 (13:07→21:47)
[2024-06-08] MEDS: DILTIAZEM 5 MG/ML 5 ML VIAL IVP STA (13:09)
--- NOTE | 2024-06-08 13:19 | P.CRDCN ---
History of Present Illness History of present illness: HISTORY OF PRESENT ILLNESS: This is a 79-year-old male with a past medical history significant for paroxysmal atrial fibrillation, hypertension, hyperlipidemia, cardiomyopathy, and valvular heart disease. Patient follows with a meat service team member in [place]. We have been asked to see the patient in consultation for A-fib with RVR. Patient examined at the bedside in PACU. Patient underwent routine colonoscopy today with Dr. Merida revealing normal-appearing colon from the rectum to cecum with no evidence of colorectal neoplasm, scattered sigmoid diverticulosis and small internal hemorrhoids. Post colonoscopy, the patient had persistent coughing with emesis. He was sent to phase 1 recovery for possible aspiration. Cardiology was contacted by nursing for tachycardia and possible ventricular tachycardia. Patient examined at the bedside. Patient's is present. Patient currently denies any chest pain or pressure. He denies any shortness of breath. He denies any palpitations. He reports a slight headache at the time of examination. Bedside telemetry reveals atrial fibrillation with RVR with heart rates ranging between [id number]. Patient's provides additional history that patient had a cardiac catheterization performed approximately 5 years ago. She states he has not required any stenting. She also reports that the patient is usually in sinus mechanism and to her knowledge has not had any recurrence of his atrial fibrillation since he was first diagnosed. He does take Eliquis on an outpatient basis which has been on hold for his colonoscopy today. He also takes metoprolol succinate which she did receive this morning prior to coming to the hospital. DIAGNOSTICS: - EKG reveals atrial fibrillation with RVR. No evidence of ventricular tachycardia. - Chest xray similar mild cardiomegaly. Known moderate to large hiatal hernia containing colon at the left base. Superimposed small left pleural effusion with adjacent atelectasis and/or consolidation. Right infrahilar opacity corresponding to gastric pull-through. Superimposed focal medial right basilar atelectasis and/or consolidation. - Laboratory data: Not available at the time of this dictation - Current home cardiac medications include lisinopril 5 mg daily, metoprolol succinate 25 mg in the morning, Lipitor 40 mg at night, aspirin 81 mg daily - Most recent echocardiogram obtained in February 2024 revealing ejection fraction 30 to 35%, global left ventricular hypokinesis, negative bubble study, mild to moderate mitral regurgitation, moderate aortic stenosis with peak gradient 58 mmHg and mean gradient 33 mmHg, mild aortic regurgitation, moderate tricuspid regurgitation, and moderate pleural effusion with thrombus. REVIEW OF SYSTEMS: At the time of my exam: CONSTITUTIONAL: Denies fever or chills. HEENT: Denies blurred vision, vision changes, or eye pain. Denies hemoptysis CARDIOVASCULAR: Denies chest pain. Denies orthopnea. Denies PND. Denies palpitations RESPIRATORY: Denies shortness of breath. GASTROINTESTINAL: Denies abdominal pain. Denies nausea or vomiting. HEMATOLOGIC: Denies bleeding disorders. GENITOURINARY: Denies any blood in urine. SKIN: Denies pruitis. Denies rash. PHYSICAL EXAM: VITAL SIGNS: Reviewed. GENERAL: Well-developed in no acute distress. HEENT: Head is normocephalic. Pupils are equal, round. Sclerae anicteric. Mucous membranes of the mouth are moist. Neck supple. No JVD or thyromegaly LUNGS: Respirations even and unlabored. Lungs essentially clear to auscultation bilaterally. HEART: Tachycardic. Irregular rate and rhythm. S1 and S2 heard. Systolic murmur noted. ABDOMEN: Soft. Nondistended. Nontender. EXTREMITIES: Normal range of motion. No clubbing or cyanosis. Peripheral pulses intact. No lower extremity edema NEUROLOGIC: Awake and alert. Oriented x 3. ASSESSMENT: History of colon polyps, status post routine elective colonoscopy Postoperative vomiting with concerns of aspiration, CXR negative Paroxysmal atrial fibrillation with RVR Cardiomyopathy, suspect nonischemic, 30 to 35% Valvular heart disease including mild to moderate MR, moderate , mild AI, moderate TR Hypertension Hyperlipidemia PLAN: EKG completed at the bedside reveals atrial fibrillation with RVR. No evidence of ventricular tachycardia. Obtain limited echo to assess LV function Patient to receive metoprolol 2.5 mg IV push in PACU Will begin IV Cardizem bolus and drip. Discontinue if patient converts to sinus mechanism Increase metoprolol to 25mg BID dosing instead of daily Patient's states that patient usually takes Eliquis on an outpatient basis which has been held for his colonoscopy. Will resume Eliquis tomorrow morning. Continue telemetry monitoring Patient to be transferred to [facility] overnight Further recommendations pending patient course Patient to follow-up postdischarge with his primary meat service team member in [place] Nurse practitioner note has been reviewed by physician. Signing provider agrees with the documented findings, assessment, and plan of care documented by EVENTS MANAGER as a scribe. 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 "ENLARGED HEART VALVES" PER PATIENT. HX OF PROSTATE CANCER WITH SURGERY, HX OF THROAT CANCER WITH SURGERY-CHEMO AND RADIATION (2015), LOW IRON. [place]. 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 Very poor vision lt eye and rt eye vision vision. History of Any Multi-Drug Resistant Organisms: None Reported Past Surgical History: Orthopedic Surgery, Prostate Surgery Additional Past Surgical History / Comment(s): RIGHT SHOULDER X2, EGD'S, COLONOSCOPIES, MICAH CATARACTS, PATIENT STATES ESOPHAGUS REMOVED AND STOMACH USED. PROSTATE SX FOR CANCER, COLONOSCOPY, EGD, back surgery Past Anesthesia/Blood Transfusion Reactions: No Reported Reaction Additional Past Anesthesia/Blood Transfusion Reaction / Comment(s): Pt has received blood products in the past. Smoking Status: Never smoker - Past Family History Sister(s) Family Medical History: Cancer Additional Family Medical History / Comment(s): AT 13 YRS OF AGE. Medications and Allergies Home Medications Medication Instructions Recorded Confirmed Type Omeprazole 20 mg PO DAILY 05/25/18 06/08/24 History Multivitamins, Thera [Multivitamin 1 tab PO DAILY@1200 09/26/19 06/08/24 History (formulary)] Cholecalciferol [Vitamin D3 (25 25 mcg PO DAILY@1200 10/04/21 06/08/24 History Mcg = 1000 Iu)] Cyanocobalamin (Vitamin B-12) 1,000 mcg PO DAILY@1200 10/04/21 06/08/24 History [Vitamin B-12] rOPINIRole HCL [Requip] 0.5 mg PO HS 07/03/22 06/08/24 History Carboxymethylcellulose Sodium 1 drop LEFT EYE DAILY PRN 11/25/22 06/08/24 History [Thera Tears] Latanoprost/Pf [Latanoprost 0.005% 1 drop RIGHT EYE HS 11/25/22 06/08/24 History Eye Drop] L.acidoph,Paracasei, B.lactis 1 cap PO DAILY@1200 09/22/23 06/08/24 History [Probiotic] Metoprolol Succinate [Metoprolol 25 mg PO QAM 09/22/23 06/08/24 History Succinate ER] Atorvastatin [Lipitor] 40 mg PO HS 12/11/23 06/08/24 History EPINEPHrine (Auto Inject) [Epipen] 0.3 mg IM ONCE PRN 12/11/23 06/08/24 History Ferrous Sulfate [Iron (65 MG 325 mg PO DAILY@1200 12/11/23 06/08/24 History Elemental)] Gabapentin 300 mg PO HS 30 Days #30 cap 12/16/23 06/08/24 Rx Fluticasone/Umeclidin/Vilanter 1 puff INHALATION RT-DAILY 01/28/24 06/08/24 History [Trelegy Ellipta 100-62.5-25] Tamsulosin [Flomax] 0.4 mg PO HS 01/28/24 06/08/24 History Acetaminophen [Tylenol Arthritis] 650 mg PO Q6H PRN 03/09/24 06/08/24 History Lanolin/Mineral Oil [Eucerin 1 applic TOPICAL BID 03/09/24 06/08/24 History Original Lotion] Pioglitazone [Actos] 15 mg PO QAM 03/09/24 06/08/24 History lisinopriL [Zestril] 5 mg PO QAM 03/09/24 06/08/24 History Aspirin 81 mg PO QAM 06/06/24 06/08/24 History Allergies Allergy/AdvReac Type Severity Reaction Status Date / Time bee venom protein (honey bee) Allergy Severe Anaphylaxis Verified 06/08/24 07:57 latex Allergy Unknown Rash/Hives Verified 06/08/24 07:57 adhesive tape Allergy Unknown-Per Verified 06/08/24 07:57 Dr Dickens's office Cod/tilapia AdvReac Vomit Uncoded 06/08/24 07:57 Physical Exam Vitals: Vital Signs Temp Pulse Resp BP Pulse Ox 06/08/24 12:45 111 H 18 115/75 92 L 06/08/24 12:30 101 H 18 118/76 90 L 06/08/24 12:15 135 H 18 141/84 90 L 06/08/24 12:00 115 H 18 163/71 91 L 06/08/24 11:45 111 H 18 168/91 91 L 06/08/24 11:30 101 H 18 175/96 91 L 06/08/24 11:15 99 18 129/72 92 L 06/08/24 11:00 96 18 153/101 92 L 06/08/24 10:28 96 18 114/67 92 L 06/08/24 10:13 75 16 119/70 93 L 06/08/24 09:58 101 H 22 112/78 87 L 06/08/24 09:43 100 24 118/76 86 L 06/08/24 09:28 91 16 110/71 92 L 06/08/24 09:13 92 16 119/73 86 L 06/08/24 08:58 97 F L 93 16 100/75 93 L 06/08/24 08:06 96.9 F L 80 16 178/99 96 Intake and Output 06/07/24 06/08/24 06/08/24 22:59 06:59 14:59 Intake Total 300 Balance 300 Intake: IV 300 Other: Weight 74.4 kg Results Current Medications Generic Name Dose Route Start Last Admin Trade Name Joanna PRN Reason Stop Dose Admin Lactated Ringer's 1,000 mls @ 20 mls/hr 06/08/24 05:16 Lactated Ringers IV 07/08/24 05:15 .Q24H RENETTA Diltiazem HCl 125 mg/ Sodium 125 mls @ 5 mls/hr 06/08/24 13:15 Chloride IV 07/08/24 13:14 .Q24H RENETTA 5 MG/HR Intake and Output 06/07/24 06/08/24 06/08/24 22:59 06:59 14:59 Intake Total 300 Balance 300 Intake: IV 300 Other: Weight 74.4 kg Patient Weight 06/09/24 06:59 Weight 74.4 kg
[2024-06-08] MEDS ORDERED: DILTIAZEM 125 MG in SODIUM CHLORIDE 0.9% 100 ML IV SCH (13:30)
[2024-06-08 14:11] LABS: Glucose,Whole Blood 83 mg/dL (70-110)
[2024-06-08 15:37] LABS: HGB 13.7 gm/dL (13.0-17.5); MCHC 31.9 g/dL (31.0-37.0); MCV 103.4 fL (80.0-100.0); Macrocytosis Slight; Mean Platelet Volume 7.8; RBC 4.16 m/uL (4.30-5.90); RDW 13.9 % (11.5-15.5); WBC 2.3 k/uL (3.8-10.6)
[2024-06-08 15:46] LABS: African American GFR (CKD) 65 (>60 ml/min/1.73 sqM); Anion Gap 7 mmol/L; Blood Urea Nitrogen 23 mg/dL (9-20); Calcium 8.6 mg/dL (8.4-10.2); Carbon Dioxide 21 mmol/L (22-30); Chloride 108 mmol/L (98-107); Glucose 83 mg/dL (74-99); Magnesium 1.4 mg/dL (1.6-2.3); Non-African American GFR(CKD) 56 (>60 ml/min/1.73 sqM); Potassium 3.6 mmol/L (3.5-5.1); Sodium 136 mmol/L (137-145)
[2024-06-08 16:41] LABS: Glucose,Whole Blood 74 mg/dL (70-110)
[2024-06-08 16:53] LABS: T4, Free (Free Thyroxine) 1.48 ng/dL (0.78-2.19)
[2024-06-08] MEDS ORDERED: Magnesium Replacement Protocol 1 EACH MISC MISCELLANE PRN (17:10)
[2024-06-08 17:13] LABS: Band Neutrophils % 5 %; Lymphocytes # (M) 0.21 k/uL (1.0-4.8); Monocytes # (M) 0.39 k/uL (0-1.0); Neutrophils % (M) 69 %; Nucleated Red Blood Cells 0 /100 WBC (0-0); Total Cells Counted 100
[2024-06-08] MEDS: MAGNESIUM SULFATE-D5W PMX 1 GM in DEXTROSE/WATER 1 100ML.BAG IVPB SCH (18:05)
[2024-06-08 19:49] LABS: Glucose,Whole Blood 121 mg/dL (70-110)
[2024-06-08] MEDS: METOPROLOL SUCCINATE (ER) 25 MG TAB.ER.24H PO SCH (21:20)
[2024-06-08] MEDS: ATORVASTATIN 40 MG TAB PO SCH (21:28)
[2024-06-08] MEDS: LACTATED RINGERS 1,000 ML IV SCH (21:29)
[2024-06-09 06:00] LABS: Glucose,Whole Blood 123 mg/dL (70-110)
[2024-06-09] MEDS: ASPIRIN 81 MG PO SCH (08:24)
[2024-06-09] MEDS: lisinopriL 5 MG TAB PO SCH (08:25)
--- NOTE | 2024-06-09 08:49 | CA ---
Transthoracic Echo Report Name: Evan Webb Age: 79 Gender: M : 1945 Exam Date: 06/08/2024 16:37 Exam Location: [facility] Ht (in): 64 Wt (lb): 164 Ordering Physician: Marian Pond Attending/Referring Phys: [id number], [employer] Merchandise Displayer Yulia Castro RDCS Procedure CPT: Indications: LV function, afib rvr Cardiac Hx: Limited LV function. Technical Quality: Technically difficult study Contrast 1: Definity Total Dose (mL): 2 Contrast 2: Total Dose (mL): MEASUREMENTS (Male / Female) Normal Values 2D ECHO LV Diastolic Diameter PLAX 4.4 cm 4.2 - 5.9 / 3.9 - 5.3 cm LV Systolic Diameter PLAX 3.0 cm IVS Diastolic Thickness 1.3 cm 0.6 - 1.0 / 0.6 - 0.9 cm LVPW Diastolic Thickness 1.2 cm 0.6 - 1.0 / 0.6 - 0.9 cm LV Relative Wall Thickness 0.6 LV Diastolic Volume MOD BP 74.3 cm??? 67 - 155 / 56 - 104 cm??? LV Systolic Volume MOD BP 25.2 cm??? 22 - 58 / 19 - 49 cm??? LV Ejection Fraction MOD BP 66.1 % >= 55 % LV Cardiac Index MOD BP 1988.8 cm???/min???m??? LV Diastolic Volume MOD 4C 97.4 cm??? LV Systolic Volume MOD 4C 36.0 cm??? LV Ejection Fraction MOD 4C 63.0 % LV Cardiac Index MOD 4C 2483.7 cm???/min???m??? LV Diastolic Length 4C 8.2 cm LV Systolic Length 4C 6.8 cm LV Diastolic Volume MOD 2C 53.0 cm??? LV Systolic Volume MOD 2C 15.8 cm??? LV Ejection Fraction MOD 2C 70.2 % LV Cardiac Index MOD 2C 1507.0 cm???/min???m??? LV Diastolic Length 2C 7.6 cm LV Systolic Length 2C 6.0 cm DOPPLER AV Peak Velocity 386.9 cm/s AV Peak Gradient 59.9 mmHg AV Mean Velocity 298.3 cm/s AV Mean Gradient 38.9 mmHg AV Velocity Time Integral 86.2 cm LVOT Peak Velocity 98.0 cm/s LVOT Peak Gradient 3.8 mmHg LVOT Velocity Time Integral 18.1 cm PV Peak Velocity 54.0 cm/s PV Peak Gradient 1.2 mmHg FINDINGS Left Ventricle Left ventricular ejection fraction is estimated at 55-60 %. Mildly increased septal wall thickness. Left ventricular cavity size normal. No obvious regional wall motion abnormalities. Right Ventricle Right ventricle not well visualized. Right Atrium Left Atrium Mitral Valve Structurally normal mitral valve. No mitral stenosis, regurgitation or prolapse. Aortic Valve Aortic valve not well visualized. Severe aortic stenosis. No aortic regurgitation. Tricuspid Valve Structurally normal tricuspid valve. Tracec tricuspid regurgitation. Pulmonic Valve Pulmonic valve not well visualized. Trace pulmonic regurgitation. No pulmonic stenosis. Pericardium Trace anterior pericardial effusion. Pleural effusion. Aorta CONCLUSIONS Normal LV size and systolic function. Probably trivial anterior pericardial effusion. Minimal mitral and tricuspid regurgitation. Previewed by: Dr. Venus Greer MD (Electronically Signed) Final Date: 09 June 2024 08:48
[2024-06-09] MEDS ORDERED: METOPROLOL TARTRATE 50 MG TAB PO SCH (09:00)
[2024-06-09] MEDS ORDERED: APIXABAN 5 MG TAB PO SCH (09:00)
[2024-06-09] MEDS ORDERED: METOPROLOL SUCCINATE (ER) 25 MG TAB.ER.24H PO SCH (09:00)
[2024-06-09] MEDS: METOPROLOL SUCCINATE (ER) 25 MG TAB.ER.24H PO STA (09:09)
[2024-06-09] MEDS ORDERED: ARTIFICIAL TEARS-HYPROMELLOSE DROPS 15 ML BTL LEFT EYE PRN (09:55)
[2024-06-09] MEDS ORDERED: DEXTROSE 50% SYRINGE 50 ML IVP PRN ×2 (09:55)
[2024-06-09] MEDS ORDERED: ACETAMINOPHEN TAB 325 MG TAB PO PRN (09:55)
[2024-06-09 11:35] LABS: Glucose,Whole Blood 132 mg/dL (70-110)
[2024-06-09] MEDS: INSULIN ASPART (NovoLOG) 100 UNIT/ML VIAL SQ SCH (11:37)
[2024-06-09] MEDS: PANTOPRAZOLE 40 MG TABLET PO SCH (11:46)
[2024-06-09] MEDS: MULTIVITAMINS, THERA 1 EACH TAB PO SCH (11:46)
[2024-06-09] MEDS: CHOLECALCIFEROL 25 MCG (1000 IU) TABLET PO SCH (11:46)
[2024-06-09] MEDS: FERROUS SULFATE 325 MG TAB PO SCH (11:46)
[2024-06-09] MEDS: CYANOCOBALAMIN 500 MCG TAB PO SCH (11:46)
[2024-06-09] MEDS: LACTOBACILLUS ACIDOPHILUS/PECT 1 EACH CAPSULE PO SCH (11:46)
--- NOTE | 2024-06-09 13:36 | P.PN ---
Subjective Progress Note Date: 06/09/24 HISTORY OF PRESENT ILLNESS: This is a 79-year-old male with a past medical history significant for paro xysmal atrial fibrillation, hypertension, hyperlipidemia, cardiomyopathy, and valvular heart disease. 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 We have been asked to see the patient in consultation for A-fib with RVR. Patient examined at the bedside in PACU. Patient underwent routine colonoscopy today with Dr. Merida revealing normal-appearing colon from the rectum to cecum with no evidence of colorectal neoplasm, scattered sigmoid diverticulosis and small internal hemorrhoids. Post colonoscopy, the patient had persistent coughing with emesis. He was sent to phase 1 recovery for possible aspiration. Cardiology was contacted by nursing for tachycardia and possible ventricular ta chycardia. Patient examined at the bedside. Patient's is present. Patient currently denies any chest pain or pressure. He denies any shortness of breath. He denies any palpitations. He reports a slight headache at the time of examination. Bedside telemetry reveals atrial fibrillation with RVR with heart rates ranging between [id number]. Patient's provides additional history that patient had a cardiac catheterization performed approximately 5 years ago. She states he has not required any stenting. She also reports that the patient is usually in sinus mechanism and to her knowledge has not had any recurrence of his atrial fibrillation since he was first diagnosed. He does take Eliquis on an outpatient basis which has been on hold for his colonoscopy today. He also takes metoprolol succinate which she did receive this morning prior to coming to the hospital. DIAGNOSTICS: - EKG reveals atrial fibrillation with RVR. No evidence of ventricular tachycardia. - Chest xray similar mild cardiomegaly. Known moderate to large hiatal hernia containing colon at the left base. Superimposed small left pleural effusion with adjacent atelectasis and/or consolidation. Right infrahilar opacity corresponding to gastric pull-through. Superimposed focal medial right basilar atelectasis and/or consolidation. - Laboratory data: Not available at the time of this dictation - Current home cardiac medications include lisinopril 5 mg daily, metoprolol succinate 25 mg in the morning, Lipitor 40 mg at night, aspirin 81 mg daily - Most recent echocardiogram obtained in February 2024 revealing ejection fraction 30 to 35%, global left ventricular hypokinesis, negative bubble study, mild to moderate mitral regurgitation, moderate aortic stenosis with peak gradient 58 mmHg and mean gradient 33 mmHg, mild aortic regurgitation, moderate tricuspid regurgitation, and moderate pleural effusion with thrombus. 06/09 Patient is seen and examined on the cardiac stepdown unit. Patient remains in atrial fibrillation with controlled rate. During the night, patient became bradycardic and Cardizem drip was placed on hold. Patient denies having any chest pain, shortness of breath, palpitations. Blood pressure 99/54, heart rate in the 50s and 60s, pulse ox 97% on 4 L nasal cannula. Limited echocardiogram reveals EF of 55 to 60%. Probable trivial anterior pericardial effusion. Minimal mitral and tricuspid regurgitation. PHYSICAL EXAM: VITAL SIGNS: Reviewed. GENERAL: Well-developed in no acute distress. HEENT: Head is normocephalic. Pupils are equal, round. Sclerae anicteric. Mucous membranes of the mouth are moist. Neck supple. No JVD or thyromegaly LUNGS: Respirations even and unlabored. Lungs essentially clear to auscultation bilaterally. HEART: Tachycardic. Irregular rate and rhythm. S1 and S2 heard. Systolic murmur noted. ABDOMEN: Soft. Nondistended. Nontender. EXTREMITIES: Normal range of motion. No clubbing or cyanosis. Peripheral pulses intact. No lower extremity edema NEUROLOGIC: Awake and alert. Oriented x 3. ASSESSMENT: History of colon polyps, status post routine elective colonoscopy Postoperative vomiting with concerns of aspiration, CXR negative Paroxysmal atrial fibrillation with RVR, currently rate controlled Cardiomyopathy, suspect nonischemic, 30 to 35% Valvular heart disease including mild to moderate MR, moderate , mild AI, moderate TR Hypertension currently hypotensive Hyperlipidemia PLAN: Discontinue Cardizem drip Change beta-kelly to Toprol XL 50 mg daily Patient is not on Eliquis due to history of CVA with hemorrhagic conversion earlier this year Discontinue lisinopril due to hypotension Continue telemetry monitoring and monitor blood pressure closely If heart rates and blood pressure are controlled in the next 24 hours, plan for discharge home Patient to follow-up postdischarge with his primary pipe line maintenance supervisor in [place] Nurse practitioner note has been reviewed by physician. Signing provider agrees with the documented findings, assessment, and plan of care documented by PRODUCTION COST ESTIMATOR as a scribe. Objective - Vital Signs Vital signs: Vital Signs Temp 97.6 F 06/08/24 15:49 Pulse 55 L 06/09/24 04:02 Resp 16 06/09/24 04:02 BP 95/52 06/09/24 04:02 Pulse Ox 96 06/09/24 04:02 FiO2 Intake & Output 06/08/24 06/09/24 06/09/24 18:59 06:59 18:59 Intake Total 1040 34.417 Output Total 200 Balance 840 34.417 Weight 74.4 kg 76 kg Intake: IV 800 Intake, IV Titration 34.417 Amount Diltiazem 125 mg In 34.417 Sodium Chloride 0.9% 100 ml @ 5 MG/HR 5 mls/hr IV .Q24H [facility] Rx#:[id number] Oral 240 Output: Urine 200 Other: Voiding Method Urinal - Labs CBC & Chem 7: 06/08/24 15:09 06/08/24 15:09 Labs: Abnormal Lab Results - Last 24 Hours (Table) 06/08/24 06/08/24 06/08/24 Range/Units 15:09 15:09 19:48 WBC 2.3 L (3.8-10.6) k/uL RBC 4.16 L (4.30-5.90) m/uL MCV 103.4 H (80.0-100.0) fL Lymphocytes # (Manual) 0.21 L (1.0-4.8) k/uL Sodium 136 L (137-145) mmol/L Chloride 108 H (98-107) mmol/L Carbon Dioxide 21 L (22-30) mmol/L BUN 23 H (9-20) mg/dL POC Glucose (mg/dL) 121 H (70-110) mg/dL Magnesium 1.4 L (1.6-2.3) mg/dL TSH 6.110 H (0.465-4.680) mIU/L 06/09/24 Range/Units 05:58 WBC (3.8-10.6) k/uL RBC (4.30-5.90) m/uL MCV (80.0-100.0) fL Lymphocytes # (Manual) (1.0-4.8) k/uL Sodium (137-145) mmol/L Chloride (98-107) mmol/L Carbon Dioxide (22-30) mmol/L BUN (9-20) mg/dL POC Glucose (mg/dL) 123 H (70-110) mg/dL Magnesium (1.6-2.3) mg/dL TSH (0.465-4.680) mIU/L
--- NOTE | 2024-06-09 14:21 | P.HPIM ---
History of Present Illness H&P Date: 06/09/24 This is a 79-year-old male with history of paroxysmal atrial fibrillation, COPD, stroke, diabetes mellitus, hypertension, hyperlipidemia history of esophageal cancer with prior surgery and chemoradiation. Patient was scheduled for an elective colonoscopy for history of colon polyps which was completed yesterday had findings of a normal-appearing colon from rectum to cecum with no evidence of colorectal neoplasia there was scattered sigmoid diverticulosis and small internal hemorrhoids. Patient began having cough with emesis and there was concern for aspiration while in recovery. He also had elevated heart rate and was found to be hypoxic. He went into atrial fibrillation with a rapid vent ricular rate he was admitted to the hospital under medicine with a consult placed to cardiology services. While in recovery patient was given a one-time dose of 5 mg IV push Cardizem. chest x-ray shows similar mild cardiomegaly a known moderate to large hiatal hernia containing colon at the left base there is a superimposed small pleural effusion with adjacent atelectasis and/or consolidation. There is a right infrahilar opacity corresponding to gastric pull-through there is superimposed focal medial right basilar atelectasis and/or consolidation. Cardiogram was done revealing an ejection fraction of 55% with a trivial pericardial effusion. Routine blood work reveals a white blood cell c ount of 2.3, MCV of 103.4, sodium of 136, BUN of 23 creatinine of 1.23, magnesium of 1.4, TSH of 6.110 and a free T4 of 1.48. REVIEW OF SYSTEMS: CONSTITUTIONAL: No fever, no malaise, no fatigue. HEENT: No recent visual problems or hearing problems. Denied any sore throat. CARDIOVASCULAR: No chest pain, orthopnea, PND, no palpitations, no syncope. PULMONARY: No shortness of breath, no cough, no hemoptysis. GASTROINTESTINAL: No diarrhea, no nausea, no vomiting, no abdominal pain. NEUROLOGICAL: No headaches, no weakness, no numbness. HEMATOLOGICAL: Denies any bleeding or petechiae. GENITOURINARY: Denies any burning micturition, frequency, or urgency. MUSCULOSKELETAL/RHEUMATOLOGICAL: Denies any joint pain, swelling, or any muscle pain. ENDOCRINE: Denies any polyuria or polydipsia. The rest of the 14-point review of systems is negative. PHYSICAL EXAMINATION: GENERAL: The patient is alert and oriented x3, not in any acute distress. Well developed, well nourished. HEENT: Pupils are round and equally reacting to light. EOMI. No scleral icterus. No conjunctival pallor. Normocephalic, atraumatic. No pharyngeal erythema. No thyromegaly. CARDIOVASCULAR: S1 and S2 present. No murmurs, rubs, or gallops. PULMONARY: Chest is clear to auscultation, no wheezing or crackles. ABDOMEN: Soft, nontender, nondistended, normoactive bowel sounds. No palpable organomegaly. MUSCULOSKELETAL: No joint swelling or deformity. EXTREMITIES: No cyanosis, clubbing, or pedal edema. NEUROLOGICAL: Gross neurological examination did not reveal any focal deficits. SKIN: No rashes. Assessment and plan Colon Polyps with an elective colonoscopy Atrial fibrillation with rapid ventricular rate Hypoxemic respiratory failure secondary to diastolic CHF evidence of pleural effusion on chest x-ray History of paroxysmal atrial fibrillation not on any anticoagulation Ischemic cardiomyopathy with a EF of 30 to 35% in the past with valvular heart disease History of stroke with hemorrhagic conversion Hypertension Hyperlipidemia History esophageal cancer with surgery and chemoradiation Diabetes mellitus type 2 History of COPD Elevated TSH normal free T4 GI prophylaxis Plan Beta-kelly has been increased to Toprol XL 50 mg daily Lisinopril has been discontinued Recommending to monitor patient on the cardiac telemetry overnight and if no issues with her blood pressure will be discharged home tomorrow Continue to wean oxygen as tolerated if patient is unable to to be weaned off the oxygen will consider giving a small dose of IV Lasix BMP The impression and plan of care has been dictated by Mary Chahal, Nurse Practitioner as directed. Dr. Maged MD I have performed a history and physical examination and medical decision making of this patient, discussed the same with the dictator, and agree with the dictators assessment and plan as written, documented as a scribe. Based on total visit time, I have performed more than 50% of this visit. 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 "ENLARGED HEART VALVES" PER PATIENT. HX OF PROSTATE CANCER WITH SURGERY, HX OF THROAT CANCER WITH SURGERY-CHEMO AND RADIATION (2016), LOW IRON. MCGRATH. 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 Very poor vision lt eye and rt eye vision vision. History of Any Multi-Drug Resistant Organisms: None Reported Past Surgical History: Orthopedic Surgery, Prostate Surgery Additional Past Surgical History / Comment(s): RIGHT SHOULDER X2, EGD'S, COLONOSCOPIES, MICAH CATARACTS, PATIENT STATES ESOPHAGUS REMOVED AND STOMACH USED. PROSTATE SX FOR CANCER, COLONOSCOPY, EGD, back surgery Past Anesthesia/Blood Transfusion Reactions: No Reported Reaction Additional Past Anesthesia/Blood Transfusion Reaction / Comment(s): Pt has received blood products in the past. 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 Medications and Allergies Home Medications Medication Instructions Recorded Confirmed Type Omeprazole 20 mg PO DAILY 05/25/18 06/08/24 History Multivitamins, Thera [Multivitamin 1 tab PO DAILY@1200 09/26/19 06/08/24 History (formulary)] Cholecalciferol [Vitamin D3 (25 25 mcg PO DAILY@1200 10/04/21 06/08/24 History Mcg = 1000 Iu)] Cyanocobalamin (Vitamin B-12) 1,000 mcg PO DAILY@1200 10/04/21 06/08/24 History [Vitamin B-12] rOPINIRole HCL [Requip] 0.5 mg PO HS 07/03/22 06/08/24 History Carboxymethylcellulose Sodium 1 drop LEFT EYE DAILY PRN 11/25/22 06/08/24 History [Thera Tears] Latanoprost/Pf [Latanoprost 0.005% 1 drop RIGHT EYE HS 11/25/22 06/08/24 History Eye Drop] L.acidoph,Paracasei, B.lactis 1 cap PO DAILY@1200 09/22/23 06/08/24 History [Probiotic] Metoprolol Succinate [Metoprolol 25 mg PO QAM 09/22/23 06/08/24 History Succinate ER] Atorvastatin [Lipitor] 40 mg PO HS 12/11/23 06/08/24 History EPINEPHrine (Auto Inject) [Epipen] 0.3 mg IM ONCE PRN 12/11/23 06/08/24 History Ferrous Sulfate [Iron (65 MG 325 mg PO DAILY@1200 12/11/23 06/08/24 History Elemental)] Gabapentin 300 mg PO HS 30 Days #30 cap 12/16/23 06/08/24 Rx Fluticasone/Umeclidin/Vilanter 1 puff INHALATION RT-DAILY 01/28/24 06/08/24 History [Trelegy Ellipta 100-62.5-25] Tamsulosin [Flomax] 0.4 mg PO HS 01/28/24 06/08/24 History Acetaminophen [Tylenol Arthritis] 650 mg PO Q6H PRN 03/09/24 06/08/24 History Lanolin/Mineral Oil [Eucerin 1 applic TOPICAL BID 03/09/24 06/08/24 History Original Lotion] Pioglitazone [Actos] 15 mg PO QAM 03/09/24 06/08/24 History lisinopriL [Zestril] 5 mg PO QAM 03/09/24 06/08/24 History Aspirin 81 mg PO QAM 06/06/24 06/08/24 History Allergies Allergy/AdvReac Type Severity Reaction Status Date / Time bee venom protein (honey bee) Allergy Severe Anaphylaxis Verified 06/08/24 07:57 latex Allergy Unknown Rash/Hives Verified 06/08/24 07:57 adhesive tape Allergy Unknown-Per Verified 06/08/24 07:57 Dr Dickens's office Cod/tilapia AdvReac Vomit Uncoded 06/08/24 07:57 Physical Exam Vitals: Vital Signs Temp Pulse Resp BP Pulse Ox 06/09/24 04:02 55 L 16 95/52 96 06/09/24 02:31 54 L 16 92/51 99 06/09/24 00:00 57 L 16 86/52 100 06/08/24 20:21 58 L 18 98/58 92 L 06/08/24 20:00 50 L 06/08/24 16:12 74 20 94/60 96 06/08/24 15:49 97.6 F 85 20 92/59 97 06/08/24 14:10 83 L 06/08/24 14:00 88 18 99/61 98 06/08/24 13:30 89 20 98/60 99 06/08/24 13:00 79 18 87/57 100 06/08/24 12:45 111 H 18 115/75 92 L 06/08/24 12:30 101 H 18 118/76 90 L 06/08/24 12:15 135 H 18 141/84 90 L 06/08/24 12:00 115 H 18 163/71 91 L 06/08/24 11:45 111 H 18 168/91 91 L 06/08/24 11:30 101 H 18 175/96 91 L 06/08/24 11:15 99 18 129/72 92 L 06/08/24 11:00 96 18 153/101 92 L 06/08/24 10:28 96 18 114/67 92 L 06/08/24 10:13 75 16 119/70 93 L 06/08/24 09:58 101 H 22 112/78 87 L 06/08/24 09:43 100 24 118/76 86 L Intake and Output 06/08/24 06/09/24 06/09/24 22:59 06:59 14:59 Intake Total 274.417 Balance 274.417 Intake: Intake, IV Titration 34.417 Amount Diltiazem 125 mg In 34.417 Sodium Chloride 0.9% 100 ml @ 5 MG/HR 5 mls/hr IV .Q24H [facility] Rx#:[id number] Oral 240 Other: Voiding Method Urinal Urinal Weight 74.4 kg 76 kg Results CBC & Chem 7: 06/08/24 15:09 06/08/24 15:09 Labs: Abnormal Lab Results - Last 24 Hours (Table) 06/08/24 06/08/24 06/08/24 Range/Units 15:09 15:09 19:48 WBC 2.3 L (3.8-10.6) k/uL RBC 4.16 L (4.30-5.90) m/uL MCV 103.4 H (80.0-100.0) fL Lymphocytes # (Manual) 0.21 L (1.0-4.8) k/uL Sodium 136 L (137-145) mmol/L Chloride 108 H (98-107) mmol/L Carbon Dioxide 21 L (22-30) mmol/L BUN 23 H (9-20) mg/dL POC Glucose (mg/dL) 121 H (70-110) mg/dL Magnesium 1.4 L (1.6-2.3) mg/dL TSH 6.110 H (0.465-4.680) mIU/L 06/09/ Range/Units 05:58 WBC (3.8-10.6) k/uL RBC (4.30-5.90) m/uL MCV (80.0-100.0) fL Lymphocytes # (Manual) (1.0-4.8) k/uL Sodium (137-145) mmol/L Chloride (98-107) mmol/L Carbon Dioxide (22-30) mmol/L BUN (9-20) mg/dL POC Glucose (mg/dL) 123 H (70-110) mg/dL Magnesium (1.6-2.3) mg/dL TSH (0.465-4.680) mIU/L Thrombosis Risk Factor Assmnt - Choose All That Apply Any of the Below Risk Factors Present?: Yes Each Factor Represents 1 point: Abnormal pulmonary function (COPD) Each Risk Factor Represents 3 Points: Age 75 years or older Thrombosis Risk Factor Assessment Total Risk Factor Score: 4 Thrombosis Risk Factor Assessment Level: Moderate Risk Assessment and Plan Time with Patient: Less than 30
[2024-06-09 16:49] LABS: Glucose,Whole Blood 107 mg/dL (70-110)
[2024-06-09 19:49] LABS: Glucose,Whole Blood 123 mg/dL (70-110)
[2024-06-09] MEDS: TAMSULOSIN 0.4 MG CAP.ER.24H PO SCH (20:08)
[2024-06-09] MEDS: GABAPENTIN 300 MG CAP PO SCH (20:08)
[2024-06-09] MEDS: LATANOPROST 0.005% OPHTH DROPS 2.5 ML BTL RIGHT EYE SCH (20:08)
[2024-06-09] MEDS: MINERAL OIL-WHITE PETROLATUM 120 GM JAR TOPICAL SCH (20:08)
[2024-06-09] MEDS: SYMBICORT 80-4.5 MCG INHALER INHALATION SCH (20:23)
[2024-06-10 05:33] LABS: Glucose,Whole Blood 116 mg/dL (70-110)
[2024-06-10 06:52] LABS: African American GFR (CKD) 67 (>60 ml/min/1.73 sqM); Anion Gap 3 mmol/L; Blood Urea Nitrogen 29 mg/dL (9-20); Calcium 8.4 mg/dL (8.4-10.2); Carbon Dioxide 26 mmol/L (22-30); Chloride 106 mmol/L (98-107); Glucose 116 mg/dL (74-99); Non-African American GFR(CKD) 58 (>60 ml/min/1.73 sqM); Potassium 4.2 mmol/L (3.5-5.1); Sodium 135 mmol/L (137-145)
[2024-06-10] MEDS: METOPROLOL SUCCINATE (ER) 50 MG TAB.ER.24H PO SCH (07:33)
[2024-06-10] MEDS: PIOGLITAZONE 15 MG TAB PO SCH (07:33)
[2024-06-10] MEDS: IPRATROPIUM 0.5 MG/2.5 ML NEBU INHALATION SCH (08:13)
[2024-06-10 08:18] VITALS: RESP 16
--- NOTE | 2024-06-10 10:09 | CDI ---
Documentation Clarification Form Date: 06/10/2024 08:20:00 AM From: Mamie Cade RN CCDS Phone: [phone] Admit Date: 06/08/2024 02:03:00 PM Patient Name: Evan Webb Visit Number: [id number] Discharge Date: ATTENTION: The Clinical Documentation Specialists (CDI) and [facility] Coding Staff appreciate your assistance in clarifying documentation. Please respond to the clarification below the line at the bottom and electronically sign. The CDI & [facility] Coding staff will review the response and follow-up if needed. Please note: Queries are made part of the Legal Health Record. If you have any questions, please contact the author of this message via ITS. Dr. Helena Lynne Your patient has hypoxemic respiratory failure secondary to diastolic CHF evidence on CXR, 06/09, HP. Based on this information and the findings below, is there an additional diagnosis that is clinically appropriate for this patient? History/Risk Factors: 79 year old male presented for elective colonoscopy and after the procedure the patient was having persistent cough with emesis and hence was sent to phase 1 recovery for possible aspiration. He had CXR done that showed no evidence of aspiration. However he continued to have persistent tachycardia and decreased saturation and subsequently diagnosed with new onset Afib with RVR. Medical History: COPD, Stroke, DM, HTN, HLD, Esophageal cancer. 06/09, HP. Clinical Indicators: 06/08/2024 VSS B/P 100/75: HR 93; Temp 97F temporal Artery; RR 16; SpO2 93% simple mask RR 16; Spo2 92% 5L nc RR 24; SpO2 86% ra RR; 16 SpO2 93% 3L nc 06/08, CXR: There is superimposed small left pleural effusion with adjacent atelectasis and or consolidation.. Right infrahilar opacity corresponding to gastric pull through. Three is superimposed focal medial right basilar atelectasis and or consolidation. Lung/Breathing assessment, 06/08 Cardiology consult: Respirations even and unlabored. Lungs essentially clear to auscultation bilaterally. Treatment: Symbicort Inahalation BID Breathing tx: 06/08 Duoenb Inhalation x 1 O2: Simple mask, nasal cannula Is there an additional diagnosis that is clinically appropriate for this patient? [ x ] Acute Hypoxic Respiratory Failure [ ] Chronic Respiratory Failure [ ] Other Diagnosis, please specify [ ] Unable to determine (Template Last Revised: August 2023) MTDD
--- NOTE | 2024-06-10 10:17 | CDI ---
Documentation Clarification Form Date: 06/10/2024 10:03:06 AM From: Mamie Cade Phone: [phone] Admit Date: 06/08/2024 02:03:00 PM Patient Name: Evan Webb Visit Number: [id number] Discharge Date: ATTENTION: The Clinical Documentation Specialists (CDI) and [facility] Coding Staff appreciate your assistance in clarifying documentation. Please respond to the clarification below the line at the bottom and electronically sign. The CDI & [facility] Coding staff will review the response and follow-up if needed. Please note: Queries are made part of the Legal Health Record. If you have any questions, please contact the author of this message via ITS. Doctor: Helena Lynne Your patient has the documented diagnosis of unspecified Diastolic CHF, 06/09, HP. Additional information regarding the acuity of Diastolic CHF is requested. History/Risk Factors: 79 year old male presented for elective colonoscopy and after the procedure the patient was having persistent cough with emesis and hence was sent to phase 1 recovery for possible aspiration. He had CXR done that showed no evidence of aspiration. However he continued to have persistent tachycardia and decreased saturation and subsequently diagnosed with new onset Afib with RVR. Medical History: COPD, Stroke, DM, HTN, HLD, Esophageal cancer. 06/09, HP. Clinical Indicators: VSS B/P 100/75: HR 93; Temp 97F temporal Artery; RR 16; SpO2 93% simple mask Echocardiogram Results 06/09: EF 55-60% Normal LV size and systolic function. Probably trivial anterior pericardial effusion. Minimal mitral and tricuspid regurgitation. 06/08, CXR: There is superimposed small left pleural effusion with adjacent atelectasis and or consolidation.. Right infrahilar opacity corresponding to gastric pull through. Three is superimposed focal medial right basilar atelectasis and or consolidation. Treatment: Lopressor ivp x 1 06/09 Torpol 25mg po bid 06/09 toprol xl po daily In your professional opinion, can you please clarify the acuity of CHF if known? [ ] Acute on Chronic Diastolic Heart Failure (preserved EF) [ x ] Chronic Diastolic Heart Failure (preserved EF) [ ] Other, please specify [ ] Unable to determine (Template Last Revised: September 2020) MTDD
[2024-06-10 10:37] VITALS: TEMP 98.2
[2024-06-10 11:11] LABS: Glucose,Whole Blood 97 mg/dL (70-110)
[2024-06-10 11:33] VITALS: BP 110/69; PULSE 71
--- NOTE | 2024-06-10 12:05 | P.PN ---
Subjective Progress Note Date: 06/10/24 HISTORY OF PRESENT ILLNESS: This is a 79-year-old male with a past medical history significant for paro xysmal atrial fibrillation, hypertension, hyperlipidemia, cardiomyopathy, and valvular heart disease. 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 We have been asked to see the patient in consultation for A-fib with RVR. Patient examined at the bedside in PACU. Patient underwent routine colonoscopy today with Dr. Merida revealing normal-appearing colon from the rectum to cecum with no evidence of colorectal neoplasm, scattered sigmoid diverticulosis and small internal hemorrhoids. Post colonoscopy, the patient had persistent coughing with emesis. He was sent to phase 1 recovery for possible aspiration. Cardiology was contacted by nursing for tachycardia and possible ventricular ta chycardia. Patient examined at the bedside. Patient's is present. Patient currently denies any chest pain or pressure. He denies any shortness of breath. He denies any palpitations. He reports a slight headache at the time of examination. Bedside telemetry reveals atrial fibrillation with RVR with heart rates ranging between [id number]. Patient's provides additional history that patient had a cardiac catheterization performed approximately 5 years ago. She states he has not required any stenting. She also reports that the patient is usually in sinus mechanism and to her knowledge has not had any recurrence of his atrial fibrillation since he was first diagnosed. He does take Eliquis on an outpatient basis which has been on hold for his colonoscopy today. He also takes metoprolol succinate which she did receive this morning prior to coming to the hospital. DIAGNOSTICS: - EKG reveals atrial fibrillation with RVR. No evidence of ventricular tachycardia. - Chest xray similar mild cardiomegaly. Known moderate to large hiatal hernia containing colon at the left base. Superimposed small left pleural effusion with adjacent atelectasis and/or consolidation. Right infrahilar opacity corresponding to gastric pull-through. Superimposed focal medial right basilar atelectasis and/or consolidation. - Laboratory data: Not available at the time of this dictation - Current home cardiac medications include lisinopril 5 mg daily, metoprolol succinate 25 mg in the morning, Lipitor 40 mg at night, aspirin 81 mg daily - Most recent echocardiogram obtained in February 2024 revealing ejection fraction 30 to 35%, global left ventricular hypokinesis, negative bubble study, mild to moderate mitral regurgitation, moderate aortic stenosis with peak gradient 58 mmHg and mean gradient 33 mmHg, mild aortic regurgitation, moderate tricuspid regurgitation, and moderate pleural effusion with thrombus. 06/09 Patient is seen and examined on the cardiac stepdown unit. Patient remains in atrial fibrillation with controlled rate. During the night, patient became bradycardic and Cardizem drip was placed on hold. Patient denies having any chest pain, shortness of breath, palpitations. Blood pressure 99/54, heart rate in the 50s and 60s, pulse ox 97% on 4 L nasal cannula. Limited echocardiogram reveals EF of 55 to 60%. Probable trivial anterior pericardial effusion. Minimal mitral and tricuspid regurgitation. 06/10 Patient remains in atrial fibrillation controlled rate at 70s. Blood pressure 110/69, pulse ox 95% on room air. Repeat blood work reveals sodium 135, pot assium 4.2, BUN 29 creatinine 1.19. PHYSICAL EXAM: VITAL SIGNS: Reviewed. GENERAL: Well-developed in no acute distress. HEENT: Head is normocephalic. Pupils are equal, round. Sclerae anicteric. Mucous membranes of the mouth are moist. Neck supple. No JVD or thyromegaly LUNGS: Respirations even and unlabored. Lungs essentially clear to auscultation bilaterally. HEART: Irregular rate and rhythm. S1 and S2 heard. Systolic murmur noted. ABDOMEN: Soft. Nondistended. Nontender. EXTREMITIES: Normal range of motion. No clubbing or cyanosis. Peripheral pulses intact. No lower extremity edema NEUROLOGIC: Awake and alert. Oriented x 3. 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 Signing provider agrees with the documented findings, assessment, and plan of care documented by SCOUT LEASER as a scribe. Objective - Vital Signs Vital signs: Vital Signs Temp 98.5 F 06/10/24 03:23 Pulse 72 06/10/24 08:27 Resp 16 06/10/24 08:27 BP 114/64 06/10/24 03:23 Pulse Ox 92 L 06/10/24 03:23 FiO2 Intake & Output 06/09/24 06/10/24 06/10/24 18:59 06:59 18:59 Intake Total 1320 Output Total 300 325 Balance 1020 -325 Weight 76 kg Intake: Oral 1320 Output: Urine 300 325 Other: Voiding Method Urinal Urinal # Voids 1 - Labs CBC & Chem 7: 06/08/24 15:09 06/10/24 05:40 Labs: Abnormal Lab Results - Last 24 Hours (Table) 06/09/24 06/09/24 06/10/24 Range/Units 11:33 19:47 05:31 Sodium (137-145) mmol/L BUN (9-20) mg/dL Glucose (74-99) mg/dL POC Glucose (mg/dL) 132 H 123 H 116 H (70-110) mg/dL 06/10/24 Range/Units 05:40 Sodium 135 L (137-145) mmol/L BUN 29 H (9-20) mg/dL Glucose 116 H (74-99) mg/dL POC Glucose (mg/dL) (70-110) mg/dL
== END 2024-06-10 13:55 | disposition home or self-care (01) | DRG 308 ==
LOC: ORWHC2ENDO 07:33 → 3SCARD 13:24 → ORWHC2ENDO 14:03
PROVIDERS: ADMIT Hospitalist; ATTEND Hospitalist
PROC: 0DJD8ZZ Inspection of Lower Intestinal Tract, Via Natural or Artificial Opening Endoscopic (ICD-10-PCS; principal; 2024-06-08 08:35)
DX: I48.0 Paroxysmal atrial fibrillation (principal); J96.01 Acute respiratory failure with hypoxia; I50.32 Chronic diastolic (congestive) heart failure; I11.0 Hypertensive heart disease with heart failure; Z86.73 Personal history of transient ischemic attack (TIA), and cerebral infarction without residual deficits; Z86.0100 Personal history of colon polyps, unspecified; T81.9XXA Unspecified complication of procedure, initial encounter; Y83.8 Other surgical procedures as the cause of abnormal reaction of the patient, or of later complication, without mention of misadventure at the time of the procedure; R94.6 Abnormal results of thyroid function studies; J44.9 Chronic obstructive pulmonary disease, unspecified; K63.5 Polyp of colon; R00.0 Tachycardia, unspecified; E78.5 Hyperlipidemia, unspecified; E11.9 Type 2 diabetes mellitus without complications; Z85.01 Personal history of malignant neoplasm of esophagus; H54.7 Unspecified visual loss; I42.9 Cardiomyopathy, unspecified; K44.9 Diaphragmatic hernia without obstruction or gangrene; K57.30 Diverticulosis of large intestine without perforation or abscess without bleeding; K64.8 Other hemorrhoids; Z79.82 Long term (current) use of aspirin; Z79.84 Long term (current) use of oral hypoglycemic drugs; Z79.899 Other long term (current) drug therapy; Z85.46 Personal history of malignant neoplasm of prostate; Z85.819 Personal history of malignant neoplasm of unspecified site of lip, oral cavity, and pharynx; Z92.3 Personal history of irradiation
CPT/HCPCS: 45378; 71045; 80048; 83036; 83735; 84439; 84443; 85025; 93308; 94640

== ENCOUNTER 2024-07-08 15:47 | Inpatient (IN) | payer MEDICARE, OTHER ==
--- NOTE | 2024-07-08 16:36 | ED ---
General Adult HPI - General Chief complaint: Syncope Stated complaint: Weakness Time Seen by Provider: 07/08/24 15:50 Source: patient, EMS, RN notes reviewed, old records reviewed Mode of arrival: EMS Limitations: no limitations - History of Present Illness Initial comments: This is a 79-year-old male who presents emergency department stating he was at therapy for his back pain. Patient states he had surgery back in September. Patient states he occasionally gets this back pain and today it was from his left lower buttocks region he states that shot up his spine and felt like an arrow. Patient states it lasted for about 30 minutes and he almost passed out because of the pain. Patient states he is much better now but the pain is still there a little bit. Patient states it felt like a muscle spasm. Patient denies any chest pain difficulty breathing or shortness of breath. Patient has any fever chills or cough or patient denies any abdominal pain. Patient has any recent injury or trauma. Patient states this is similar pain to what he has had in the past - Related Data Home Medications Medication Instructions Recorded Confirmed Omeprazole 20 mg PO DAILY 05/25/18 06/08/24 Multivitamins, Thera [Multivitamin 1 tab PO DAILY@1200 09/26/19 06/08/24 (formulary)] Cholecalciferol [Vitamin D3 (25 25 mcg PO DAILY@1200 10/04/21 06/08/24 Mcg = 1000 Iu)] Cyanocobalamin (Vitamin B-12) 1,000 mcg PO DAILY@1200 10/04/21 06/08/24 [Vitamin B-12] rOPINIRole HCL [Requip] 0.5 mg PO HS 07/03/22 06/08/24 Carboxymethylcellulose Sodium 1 drop LEFT EYE DAILY PRN 11/25/22 06/08/24 [Thera Tears] Latanoprost/Pf [Latanoprost 0.005% 1 drop RIGHT EYE HS 11/25/22 06/08/24 Eye Drop] L.acidoph,Paracasei, B.lactis 1 cap PO DAILY@1200 09/22/23 06/08/24 [Probiotic] Atorvastatin [Lipitor] 40 mg PO HS 12/11/23 06/08/24 EPINEPHrine (Auto Inject) [Epipen] 0.3 mg IM ONCE PRN 12/11/23 06/08/24 Ferrous Sulfate [Iron (65 MG 325 mg PO DAILY@1200 12/11/23 06/08/24 Elemental)] Fluticasone/Umeclidin/Vilanter 1 puff INHALATION RT-DAILY 01/28/24 06/08/24 [Trelegy Ellipta 100-62.5-25] Tamsulosin [Flomax] 0.4 mg PO HS 01/28/24 06/08/24 Acetaminophen [Tylenol Arthritis] 650 mg PO Q6H PRN 03/09/24 06/08/24 Lanolin/Mineral Oil [Eucerin 1 applic TOPICAL BID 03/09/24 06/08/24 Original Lotion] Pioglitazone [Actos] 15 mg PO QAM 03/09/24 06/08/24 Aspirin 81 mg PO QAM 06/06/24 06/08/24 Previous Rx's Medication Instructions Recorded Gabapentin 300 mg PO HS 30 Days #30 cap 12/16/23 Metoprolol Succinate (ER) [Toprol 50 mg PO DAILY 30 Days #30 tab 06/10/24 XL] Allergies Allergy/AdvReac Type Severity Reaction Status Date / Time bee venom protein (honey bee) Allergy Severe Anaphylaxis Verified 07/08/24 15:53 latex Allergy Unknown Rash/Hives Verified 07/08/24 15:53 adhesive tape Allergy Unknown-Per Verified 07/08/24 15:53 Dr Dickens's office Cod/tilapia AdvReac Vomit Uncoded 07/08/24 15:53 Review of Systems ROS Statement: Those systems with pertinent positive or pertinent negative responses have been documented in the HPI. ROS Other: All systems not noted in ROS Statement are negative. 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 "ENLARGED HEART VALVES" PER PATIENT. HX OF PROSTATE CANCER WITH SURGERY, HX OF THROAT CANCER WITH SURGERY-CHEMO AND RADIATION (2015), LOW IRON. [place]. 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 Very poor vision lt eye and rt eye vision vision. History of Any Multi-Drug Resistant Organisms: None Reported Past Surgical History: Orthopedic Surgery, Prostate Surgery Additional Past Surgical History / Comment(s): RIGHT SHOULDER X2, EGD'S, COLONOSCOPIES, MICAH CATARACTS, PATIENT STATES ESOPHAGUS REMOVED AND STOMACH USED. PROSTATE SX FOR CANCER, COLONOSCOPY, EGD, back surgery Past Anesthesia/Blood Transfusion Reactions: No Reported Reaction Additional Past Anesthesia/Blood Transfusion Reaction / Comment(s): Pt has received blood products in the past. Past Psychological History: No Psychological Hx Reported, Anxiety Smoking Status: Never smoker Past Alcohol Use History: None Reported Past Drug Use History: None Reported - Past Family History Sister(s) Family Medical History: Cancer Additional Family Medical History / Comment(s): AT 13 YRS OF AGE. General Exam - General Exam Comments Initial Comments: GENERAL: Patient is well-developed and well-nourished. Patient is nontoxic and well- hydrated and is in mild distress. ENT: Neck is soft and supple. No significant lymphadenopathy is noted. Oropharynx is clear. Moist mucous membranes. Neck has full range of motion without eliciting any pain. EYES: The sclera were anicteric and conjunctiva were pink and moist. Extraocular movements were intact and pupils were equal round and reactive to light. Eyelids were unremarkable. PULMONARY: Unlabored respirations. Good breath sounds bilaterally. No audible rales rhonchi or wheezing was noted. CARDIOVASCULAR: There is a regular rate and rhythm without any murmurs gallops or rubs. ABDOMEN: Soft and nontender with normal bowel sounds. SKIN: Skin is clear with no lesions or rashes and otherwise unremarkable. NEUROLOGIC: Patient is alert and oriented x3. Cranial nerves II through XII are grossly intact. Motor and sensory are also intact. Normal speech, volume and content. Symmetrical smile. MUSCULOSKELETAL: Normal extremities with adequate strength and full range of motion. Patient's pain is reproducible in the left buttocks region near the SI joint LYMPHATICS: No significant lymphadenopathy is noted PSYCHIATRIC: Normal psychiatric evaluation. Limitations: no limitations Course Vital Signs 07/08/24 15:49 Temperature 98 F Pulse Rate 84 Respiratory 18 Rate Blood Pressure 141/94 O2 Sat by Pulse 94 L Oximetry Medical Decision Making - Medical Decision Making EKG is interpreted by myself. EKG shows atrial fibrillation at 90 bpm QRS is 133 QT interval 387 QTc is 435. Patient's EKG shows segment elevation Was pt. sent in by a medical professional or institution (, PA, CLINICAL MANAGER HOME CARE, urgent care, hospital, or prison...) When possible be specific @ -No Did you speak to anyone other than the patient for history (EMS, parent, family, police, friend...)? What history was obtained from this source @ -No Did you review nursing and triage notes (agree or disagree)? Why? @ -I reviewed and agree with nursing and triage notes Were old charts reviewed (outside hosp., previous admission, EMS record, old EKG, old radiological studies, urgent care reports/EKG's, prison records)? Report findings @ -No old charts were reviewed Differential Diagnosis? @ -Differential syncope EKG interpreted by me (3pts min.). @ -As above X-rays interpreted by me (1pt min.). @ -Chest x-ray shows a large left-sided pleural effusion much larger than previous x-ray CT interpreted by me (1pt min.). @ -None done U/S interpreted by me (1pt. min.). @ -None done What testing was considered but not performed or refused? (CT, X-rays, U/S, labs)? Why? @ -None What meds were considered but not given or refused? Why? @ -None Did you discuss the management of the patient with other professionals (professionals i.e. , PA, CLINICAL MANAGER HOME CARE, lab, RT, psych nurse, nursing home social worker, warp spooler, teacher, air crew officer, rn case mgr)? Give summary @ -Patient will be admitted to [facility] hospice whom I spoke with Was smoking cessation discussed for >3mins.? @ -No Was critical care preformed (if so, how long)? @ -No Were there social determinants of health that impacted care today? How? (Homelessness, low income, unemployed, alcoholism, drug addiction, transportation, low edu. Level, literacy, decrease access to med. care, half-way, rehab)? @ -No Was there de-escalation of care discussed even if they declined (Discuss DNR or withdrawal of care, Hospice)? DNR status @ -No What co-morbidities impacted this encounter? (DM, HTN, Smoking, COPD, CAD, Cancer, CVA, ARF, Chemo, Hep., AIDS, mental health diagnosis, sleep apnea, morbid obesity)? @ -None Was patient admitted / discharged? Hospital course, mention meds given and route, prescriptions, significant lab abnormalities, going to OR and other pertinent info. @ -Patient's troponin was mildly elevated and had a large pleural effusion on the right show patient will be admitted for repeat troponins a consult for cardiology and consult for pulmonary Undiagnosed new problem with uncertain prognosis? @ -No Drug Therapy requiring intensive monitoring for toxicity (Heparin, Nitro, Insulin, Cardizem)? @ -No Were any procedures done? @ -No Diagnosis/symptom? @ -Elevated troponin Acute, or Chronic, or Acute on Chronic? @ -Acute Uncomplicated (without systemic symptoms) or Complicated (systemic symptoms)? @ -Complicated Side effects of treatment? @ -No Exacerbation, Progression, or Severe Exacerbation? @ -No Poses a threat to life or bodily function? How? (Chest pain, [place], [place], pneumonia, PE, COPD, DKA, ARF, appy, cholecystitis, CVA, Diverticulitis, Homicidal, Nika cidal, threat to staff... and all critical care pts) @ -Yes this could lead to an [place] and endorgan dysfunction diagnosis/symptom? Diagnosis/symptom? @ -Large pleural effusion Acute, or Chronic, or Acute on Chronic? @ -Acute Uncomplicated (without systemic symptoms) or Complicated (systemic symptoms)? @ -Complicated Side effects of treatment? @ -None Exacerbation, Progression, or Severe Exacerbation] @ -No Poses a threat to life or bodily function? @ -Yes this can lead to hypoxia and endorgan dysfunction Diagnosis/symptom? @ -Near syncope Acute, or Chronic, or Acute on Chronic? @ -Acute Uncomplicated (without systemic symptoms) or Complicated (systemic symptoms)? @ -Complicated Side effects of treatment? @ -None Exacerbation, Progression, or Severe Exacerbation] @ -No Poses a threat to life or bodily function? @ -No Diagnosis/symptom? @ -Chronic back pain Acute, or Chronic, or Acute on Chronic? @ -Chronic Uncomplicated (without systemic symptoms) or Complicated (systemic symptoms)? @ -Uncomplicated Side effects of treatment? @ -None Exacerbation, Progression, or Severe Exacerbation] @ -No Poses a threat to life or bodily function? @ -No - Lab Data Result diagrams: 07/08/24 16:58 07/08/24 16:58 Lab Results 07/08/24 07/08/24 07/08/24 Range/Units 16:58 16:58 16:58 WBC 7.9 (3.8-10.6) k/uL RBC 4.08 L (4.30-5.90) m/uL Hgb 13.3 (13.0-17.5) gm/dL Hct 41.8 (39.0-53.0) % MCV 102.6 H (80.0-100.0) fL MCH 32.6 (25.0-35.0) pg MCHC 31.8 (31.0-37.0) g/dL RDW 13.6 (11.5-15.5) % Plt Count 217 (150-450) k/uL MPV 7.2 Neutrophils % 85 % Lymphocytes % 7 % Monocytes % 5 % Eosinophils % 2 % Basophils % 0 % Neutrophils # 6.7 (1.3-7.7) k/uL Lymphocytes # 0.6 L (1.0-4.8) k/uL Monocytes # 0.4 (0-1.0) k/uL Eosinophils # 0.1 (0-0.7) k/uL Basophils # 0.0 (0-0.2) k/uL Hypochromasia Slight Macrocytosis Slight Sodium 135 L (137-145) mmol/L Potassium 5.0 (3.5-5.1) mmol/L Chloride 104 (98-107) mmol/L Carbon Dioxide 28 (22-30) mmol/L Anion Gap 3 mmol/L BUN 19 (9-20) mg/dL Creatinine 0.94 (0.66-1.25) mg/dL Est GFR (CKD-EPI)AfAm 90 (>60 ml/min/1.73 sqM) Est GFR (CKD-EPI)NonAf 78 (>60 ml/min/1.73 sqM) Glucose 106 H (74-99) mg/dL Calcium 8.6 (8.4-10.2) mg/dL Magnesium 1.8 (1.6-2.3) mg/dL Total Bilirubin 0.8 (0.2-1.3) mg/dL AST 35 (17-59) U/L ALT 18 (4-49) U/L Alkaline Phosphatase 104 (38-126) U/L Troponin I 0.062 H* (0.000-0.034) ng/mL Total Protein 7.1 (6.3-8.2) g/dL Albumin 3.2 L (3.5-5.0) g/dL Disposition Clinical Impression: Elevated troponin, Large pleural effusion, Near syncope, Back pain Disposition: ADMITTED IP TO THIS HOSP Referrals: Lexi Blackwood MD [Primary Care Provider] - 1-2 days Time of Disposition: 18:14
--- NOTE | 2024-07-08 16:49 | XR ---
EXAMINATION TYPE: XR chest 2V DATE OF EXAM: 07/08/2024 4:43 PM COMPARISON: None available. CLINICAL INDICATION: Male, 79 years old with history of Chest Pain; [facility] TECHNIQUE: XR chest 2V Frontal and lateral views of the chest. FINDINGS: Marked cardiomegaly and moderate to large left pleural effusion. Small right pleural effusion. Asymme tric elevation of the left hemidiaphragm. Low lung volumes. Right shoulder arthroplasty. No appreciable pneumothorax. No acute osseous adenopathy. IMPRESSION: Marked cardiomegaly with large left and small right pleural effusions suggesting pulmonary edema. [facility], , 07/08/2024 4:47 PM
[2024-07-08] MEDS: SODIUM CHLORIDE 0.9% 500 ML 500 ML IV ONE (17:03)
[2024-07-08] MEDS: KETOROLAC 15 MG/ML 1 ML VIAL IVP STA (17:03)
[2024-07-08 17:11] LABS: Basophils % (A) 0 %; Eosinophils # (A) 0.1 k/uL (0-0.7); Eosinophils % (A) 2 %; HCT 41.8 % (39.0-53.0); HGB 13.3 gm/dL (13.0-17.5); Hypochromasia Slight; Lymphocytes # (A) 0.6 k/uL (1.0-4.8); Lymphocytes % (A) 7 %; MCH 32.6 pg (25.0-35.0); MCHC 31.8 g/dL (31.0-37.0); MCV 102.6 fL (80.0-100.0); Macrocytosis Slight; Mean Platelet Volume 7.2; Monocytes # (A) 0.4 k/uL (0-1.0); Monocytes % (A) 5 %; Neutrophils # (A) 6.7 k/uL (1.3-7.7); Neutrophils % (A) 85 %; Platelet Count 217 k/uL (150-450); RBC 4.08 m/uL (4.30-5.90); RDW 13.6 % (11.5-15.5); WBC 7.9 k/uL (3.8-10.6)
[2024-07-08 17:27] LABS: ALT 18 U/L (4-49); African American GFR (CKD) 90 (>60 ml/min/1.73 sqM); Albumin 3.2 g/dL (3.5-5.0); Anion Gap 3 mmol/L; Blood Urea Nitrogen 19 mg/dL (9-20); Calcium 8.6 mg/dL (8.4-10.2); Carbon Dioxide 28 mmol/L (22-30); Chloride 104 mmol/L (98-107); Glucose 106 mg/dL (74-99); Non-African American GFR(CKD) 78 (>60 ml/min/1.73 sqM); Sodium 135 mmol/L (137-145); Total Bilirubin 0.8 mg/dL (0.2-1.3); Total Protein 7.1 g/dL (6.3-8.2)
[2024-07-08 17:43] LABS: AST 35 U/L (17-59); Alkaline Phosphatase 104 U/L (38-126); Magnesium 1.8 mg/dL (1.6-2.3)
[2024-07-08] MEDS ORDERED: NITROGLYCERIN SL TABS 0.4 MG TAB SUBLINGUAL PRN (18:17)
[2024-07-08] MEDS: ASPIRIN 81 MG PO STA (20:05)
[2024-07-09] MEDS: NITROGLYCERIN OINT 1 INCH/GM PACKET TOPICAL SCH (00:49)
[2024-07-09] MEDS: ASPIRIN 325 MG TAB PO SCH (08:56)
[2024-07-09] MEDS ORDERED: EPINEPHrine - Anaphylaxis Kit (1 mg/mL) IM PRN (09:22)
--- NOTE | 2024-07-09 09:26 | P.HPIM ---
History of Present Illness This is a pleasant 79 years old male with past medical history of multiple medical problems as below Who presents yesterday because of presyncope, he was doing his therapy for his chronic low back pain where he felt he is going to pass out, he was not feeling well and lightheaded. It lasted about 1.5-hour No headache, no confusion, no weakness or numbness No change in urine or bowel habits. No fever or chills. No chest pain. No coughing or illicit drugs His chronic low back pain currently is 5/10 and is controlled pain Denies smoking alcohol or illicit drugs Patient vitals are stable and afebrile. He is mildly tachypneic He has unremarkable CBC, BMP, liver enzymes and troponin is elevated at 0.062, 0.060. 0.058 His EKG showing A-fib with a rate of 90 with interventricular conduction delay Chest x-ray showing mild cardiomegaly with bilateral pleural effusion and pulmonary vascular congestion Review of Systems Review of systems CONSTITUTIONAL: No fever, no malaise, no fatigue. HEENT: No recent visual problems or hearing problems. Denied any sore throat. CARDIOVASCULAR: No orthopnea, PND, no palpitations, no syncope. PULMONARY: No shortness of breath, no cough, no hemoptysis. GASTROINTESTINAL: No diarrhea, no nausea, no vomiting, no abdominal pain. No rmoactive bowel sounds. NEUROLOGICAL: No headaches, no weakness, no numbness. HEMATOLOGICAL: Denies any bleeding or petechiae. GENITOURINARY: Denies any burning micturition, frequency, or urgency. MUSCULOSKELETAL/RHEUMATOLOGICAL: Denies any joint pain, swelling, or any muscle pain. ENDOCRINE: Denies any polyuria or polydipsia. 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 "ENLARGED HEART VALVES" PER PATIENT. HX OF PROSTATE CANCER WITH SURGERY, HX OF THROAT CANCER WITH SURGERY-CHEMO AND RADIATION (2015), LOW IRON. [place]. 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 Very poor vision lt eye and rt eye vision vision. History of Any Multi-Drug Resistant Organisms: None Reported Past Surgical History: Orthopedic Surgery, Prostate Surgery Additional Past Surgical History / Comment(s): RIGHT SHOULDER X2, EGD'S, COLONOSCOPIES, MICAH CATARACTS, PATIENT STATES ESOPHAGUS REMOVED AND STOMACH USED. PROSTATE SX FOR CANCER, COLONOSCOPY, EGD, back surgery Past Anesthesia/Blood Transfusion Reactions: No Reported Reaction Additional Past Anesthesia/Blood Transfusion Reaction / Comment(s): Pt has received blood products in the past. Past Psychological History: No Psychological Hx Reported, Anxiety Smoking Status: Never smoker Past Alcohol Use History: None Reported Past Drug Use History: None Reported - Past Family History Sister(s) Family Medical History: Cancer Additional Family Medical History / Comment(s): AT 13 YRS OF AGE. Medications and Allergies Home Medications Medication Instructions Recorded Confirmed Type Omeprazole 20 mg PO AC-BRKFST 05/25/18 07/08/24 History Multivitamins, Thera [Multivitamin 1 tab PO PC-LUNCH 09/26/19 07/08/24 History (formulary)] Cholecalciferol [Vitamin D3 (25 25 mcg PO PC-LUNCH 10/04/21 07/08/24 History Mcg = 1000 Iu)] Cyanocobalamin (Vitamin B-12) 1,000 mcg PO PC-LUNCH 10/04/21 07/08/24 History [Vitamin B-12] rOPINIRole HCL [Requip] 0.5 mg PO HS 07/03/22 07/08/24 History Latanoprost/Pf [Latanoprost 0.005% 1 drop BOTH EYES HS 11/25/22 07/08/24 History Eye Drop] L.acidoph,Paracasei, B.lactis 1 cap PO PC-LUNCH 09/22/23 07/08/24 History [Probiotic] Atorvastatin [Lipitor] 40 mg PO HS 12/11/23 07/08/24 History EPINEPHrine (Auto Inject) [Epipen] 0.3 mg IM ONCE PRN 12/11/23 07/08/24 History Ferrous Sulfate [Iron (65 MG 325 mg PO PC-LUNCH 12/11/23 07/08/24 History Elemental)] Gabapentin 300 mg PO HS 30 Days #30 cap 12/16/23 07/08/24 Rx Fluticasone/Umeclidin/Vilanter 1 puff INHALATION RT-DAILY 01/28/24 07/08/24 History [Trelegy Ellipta 100-62.5-25] Tamsulosin [Flomax] 0.4 mg PO HS 01/28/24 07/08/24 History Lanolin/Mineral Oil [Eucerin 1 applic TOPICAL BID PRN 03/09/24 07/08/24 History Original Lotion] Aspirin 81 mg PO DAILY 06/06/24 07/08/24 History Metoprolol Succinate (ER) [Toprol 50 mg PO DAILY 30 Days #30 tab 06/10/24 07/08/24 Rx XL] Artificial Tears-Hypromellose 1 drop BOTH EYES HS 07/08/24 07/08/24 History [Artificial Tear Drops] Pioglitazone [Actos] 15 mg PO DAILY 07/08/24 07/08/24 History Allergies Allergy/AdvReac Type Severity Reaction Status Date / Time bee venom protein (honey bee) Allergy Severe Anaphylaxis Verified 07/08/24 15:53 latex Allergy Unknown Rash/Hives Verified 07/08/24 15:53 adhesive tape Allergy Unknown-Per Verified 07/08/24 15:53 Dr Dickens's office Cod/tilapia AdvReac Vomit Uncoded 07/08/24 15:53 Physical Exam Vitals: Vital Signs Temp Pulse Resp BP Pulse Ox 07/09/24 08:00 89 20 144/85 95 07/09/24 05:01 97.7 F 92 15 145/99 95 07/09/24 00:47 92 19 146/89 98 07/08/24 21:48 99 18 114/88 93 L 07/08/24 20:03 86 18 158/108 95 07/08/24 15:49 98 F 84 18 141/94 94 L Intake and Output 07/08/24 07/09/24 07/09/24 22:59 06:59 14:59 Other: Weight 73.482 kg GENERAL: The patient is alert and oriented x3, not in any acute distress. Well developed, well nourished. HEENT: Pupils are round and equally reacting to light. EOMI. No scleral icterus. No conjunctival pallor. Normocephalic, atraumatic. No pharyngeal erythema. No thyromegaly. CARDIOVASCULAR: S1 and S2 present. No murmurs, rubs, or gallops. PULMONARY: Chest is clear to auscultation, no wheezing , no crackles. ABDOMEN: Soft, nontender, nondistended, normoactive bowel sounds. No palpable organomegaly. MUSCULOSKELETAL: No joint swelling or deformity. -EXTREMITIES: No cyanosis, clubbing,. 1+ bilateral pitting leg edema NEUROLOGICAL: Gross neurological examination did not reveal any focal deficits. SKIN: No rashes. no petechiae. Results CBC & Chem 7: 07/08/24 16:58 07/08/24 16:58 Labs: Abnormal Lab Results - Last 24 Hours (Table) 07/08/24 07/08/24 07/08/24 Range/Units 16:58 16:58 16:58 RBC 4.08 L (4.30-5.90) m/uL MCV 102.6 H (80.0-100.0) fL Lymphocytes # 0.6 L (1.0-4.8) k/uL Sodium 135 L (137-145) mmol/L Glucose 106 H (74-99) mg/dL Troponin I 0.062 H* (0.000-0.034) ng/mL Albumin 3.2 L (3.5-5.0) g/dL 07/08/24 07/08/24 Range/Units 19:41 23:53 RBC (4.30-5.90) m/uL MCV (80.0-100.0) fL Lymphocytes # (1.0-4.8) k/uL Sodium (137-145) mmol/L Glucose (74-99) mg/dL Troponin I 0.060 H* 0.058 H* (0.000-0.034) ng/mL Albumin (3.5-5.0) g/dL Assessment and Plan Assessment: Presyncope Acute on chronic CHF Elevated troponin A-fib with rate controlled COPD with no exacerbation History of CVA with vision problem Hypertension Hyperlipidemia Diabetes mellitus History of osteoarthritis History of prostate cancer s/p surgical and radiation therapy in 2016 Plan: Start IV Lasix 20 mg twice daily Cardiology consult Continue with aspirin Labs and medication were reviewed.. Continue same treatment. Continue with symptomatic treatment. Resume home medication. Monitor labs and vitals. DVT and GI prophylaxis. Further recommendations as per clinical course of the patient DVT prophylaxis: Subcutaneous heparin GI Prophylaxis: Pepcid PT/OT: Pending Prognosis is guarded
[2024-07-09] MEDS: FUROSEMIDE 10 MG/ML 2 ML VIAL IV SCH (10:02)
[2024-07-09 10:16] LABS: African American GFR (CKD) >90 (>60 ml/min/1.73 sqM); Anion Gap 4 mmol/L; Blood Urea Nitrogen 17 mg/dL (9-20); Calcium 8.5 mg/dL (8.4-10.2); Carbon Dioxide 26 mmol/L (22-30); Chloride 109 mmol/L (98-107); Glucose 104 mg/dL (74-99); Non-African American GFR(CKD) 84 (>60 ml/min/1.73 sqM); Sodium 139 mmol/L (137-145)
[2024-07-09 10:24] LABS: NT-Pro-B-Type Natriuretic Pept 5910 pg/mL
[2024-07-09] MEDS: METOPROLOL SUCCINATE (ER) 50 MG TAB.ER.24H PO SCH (10:29)
[2024-07-09 10:51] LABS: Chol/HDL Ratio 1.96 Ratio; LDL Cholesterol,Calculated 42.4 mg/dL (0.0-131.0)
[2024-07-09] MEDS: MULTIVITAMINS, THERA 1 EACH TAB PO SCH (12:44)
[2024-07-09] MEDS: FERROUS SULFATE 325 MG TAB PO SCH (12:45)
[2024-07-09] MEDS: HEPARIN SODIUM,PORCINE 5,000 UNIT/ML 1 ML VIAL SQ SCH (20:59)
[2024-07-09] MEDS: FAMOTIDINE 20 MG/2 ML VIAL IV SCH (20:59)
[2024-07-09] MEDS: GABAPENTIN 300 MG CAP PO SCH (21:00)
[2024-07-09] MEDS: TAMSULOSIN 0.4 MG CAP.ER.24H PO SCH (21:00)
[2024-07-09] MEDS: ATORVASTATIN 40 MG TAB PO SCH (21:00)
[2024-07-09] MEDS: ARTIFICIAL TEARS-HYPROMELLOSE DROPS 15 ML BTL BOTH EYES SCH (22:21)
[2024-07-09] MEDS: LATANOPROST 0.005% OPHTH DROPS 2.5 ML BTL BOTH EYES SCH (22:21)
[2024-07-10 08:35] LABS: Basophils % (A) 0 %; Eosinophils # (A) 0.2 k/uL (0-0.7); Eosinophils % (A) 2 %; HCT 36.5 % (39.0-53.0); HGB 11.4 gm/dL (13.0-17.5); Hypochromasia Moderate; Lymphocytes # (A) 0.5 k/uL (1.0-4.8); Lymphocytes % (A) 7 %; MCH 32.2 pg (25.0-35.0); MCHC 31.4 g/dL (31.0-37.0); MCV 102.6 fL (80.0-100.0); Macrocytosis Slight; Monocytes # (A) 0.5 k/uL (0-1.0); Monocytes % (A) 7 %; Neutrophils # (A) 5.9 k/uL (1.3-7.7); Neutrophils % (A) 83 %; Platelet Count 177 k/uL (150-450); RBC 3.55 m/uL (4.30-5.90); RDW 13.5 % (11.5-15.5); WBC 7.2 k/uL (3.8-10.6)
[2024-07-10] MEDS: PIOGLITAZONE 15 MG TAB PO SCH (08:39)
[2024-07-10 08:47] LABS: African American GFR (CKD) >90 (>60 ml/min/1.73 sqM); Anion Gap 2 mmol/L; Blood Urea Nitrogen 15 mg/dL (9-20); Calcium 7.9 mg/dL (8.4-10.2); Carbon Dioxide 32 mmol/L (22-30); Chloride 103 mmol/L (98-107); Glucose 97 mg/dL (74-99); Non-African American GFR(CKD) 83 (>60 ml/min/1.73 sqM); Potassium 3.8 mmol/L (3.5-5.1); Sodium 137 mmol/L (137-145)
[2024-07-10] MEDS ORDERED: METOPROLOL SUCCINATE (ER) 50 MG TAB.ER.24H PO SCH (09:00)
--- NOTE | 2024-07-10 13:42 | P.PN ---
Subjective This is a pleasant 79 years old male with past medical history of multiple medical problems as below Who presents yesterday because of presyncope, he was doing his therapy for his chronic low back pain where he felt he is going to pass out, he was not feeling well and lightheaded. It lasted about 1.5-hour No headache, no confusion, no weakness or numbness No change in urine or bowel habits. No fever or chills. No chest pain. No coughing or illicit drugs His chronic low back pain currently is 5/10 and is controlled pain Denies smoking alcohol or illicit drugs Patient vitals are stable and afebrile. He is mildly tachypneic He has unremarkable CBC, BMP, liver enzymes and troponin is elevated at 0.062, 0.060. 0.058 His EKG showing A-fib with a rate of 90 with interventricular conduction delay Chest x-ray showing mild cardiomegaly with bilateral pleural effusion and pulmonary vascular congestion 07/10 Patient awake and alert. Denies chest pain. No shortness of breath at rest Patient states he walked to the bathroom this morning without exertional dyspnea However I noticed when the patient talks he got short of breath after 1-2 sentences at bedside states that she has history of esophageal cancer about 1516 years ago, had it was treated with esophagectomy and anastomosis of the stomach to the esophagus and since then he has been having exertional shortness of breath but lately it was getting worse No other new complaint Patient feels generally weak Blood pressure slightly on the low normal side, will keep monitoring. Currently he is on IV Lasix 20 mg twice daily and metoprolol home dose of 50 mg daily at bedside which helped with history. All questions answered Review of systems CONSTITUTIONAL: No fever, no malaise, no fatigue. HEENT: No recent visual problems or hearing problems. Denied any sore throat. CARDIOVASCULAR: No orthopnea, PND, no palpitations, no syncope. HEMATOLOGICAL: Denies any bleeding or petechiae. GENITOURINARY: Denies any burning micturition, frequency, or urgency. MUSCULOSKELETAL/RHEUMATOLOGICAL: Denies any joint pain, swelling, or any muscle pain. ENDOCRINE: Denies any polyuria or polydipsia. Active Medications Generic Name Dose Route Start Last Admin Trade Name Freq PRN Reason Stop Dose Admin Artificial Tears 1 drops 07/09/24 21:00 07/09/24 22:21 Artificial Tears-Hypromellose Drops 15 Ml Btl BOTH EYES 1 drops HS RENETTA Administration Aspirin 325 mg 07/09/24 09:00 07/10/24 08:39 Aspirin 325 Mg Tab PO 325 mg DAILY RENETTA Administration Atorvastatin Calcium 40 mg 07/09/24 21:00 07/09/24 21:00 Atorvastatin 40 Mg Tab PO 40 mg HS RENETTA Administration Epinephrine HCl 0.3 mg 07/09/24 09:22 Epinephrine - Anaphylaxis Kit (1 Mg/Ml) IM 07/19/24 09:21 ONCE PRN Anaphylaxis Famotidine 20 mg 07/09/24 21:00 07/10/24 08:39 Famotidine 20 Mg/2 Ml Vial IV 20 mg Q12HR RENETTA Administration Ferrous Sulfate 325 mg 07/09/24 13:30 07/10/24 12:37 Ferrous Sulfate 325 Mg Tab PO 325 mg PC-LUNCH RENETTA Administration Furosemide 20 mg 07/09/24 09:30 07/10/24 08:39 Furosemide 10 Mg/Ml 2 Ml Vial IV 20 mg Q12HR RENETTA Administration Gabapentin 300 mg 07/09/24 21:00 07/09/24 21:00 Gabapentin 300 Mg Cap PO 300 mg HS RENETTA Administration Heparin Sodium (Porcine) 5,000 unit 07/09/24 21:00 07/10/24 08:39 Heparin Sodium,Porcine 5,000 Unit/Ml 1 Ml Vial SQ 5,000 unit Q12HR RENETTA Administration Latanoprost 1 drops 07/09/24 21:00 07/09/24 22:21 Latanoprost 0.005% Ophth Drops 2.5 Ml Btl BOTH EYES 1 drops HS RENETTA Administration Metoprolol Succinate 50 mg 07/09/24 10:15 07/10/24 08:39 Metoprolol Succinate (Er) 50 Mg Tab.Er.24h PO 50 mg DAILY RENETTA Administration Multivitamins 1 each 07/09/24 13:30 07/10/24 12:37 Multivitamins, Thera 1 Each Tab PO 1 each PC-LUNCH RENETTA Administration Nitroglycerin 0.4 mg 07/08/24 18:17 Nitroglycerin Sl Tabs 0.4 Mg Tab SUBLINGUAL Q5M PRN Chest Pain Nitroglycerin 1 inch 07/09/24 00:00 07/10/24 12:37 Nitroglycerin Oint 1 Inch/Gm Packet TOPICAL 1 inch Q6HR RENETTA Administration Pioglitazone HCl 15 mg 07/10/24 09:00 07/10/24 08:39 Pioglitazone 15 Mg Tab PO 15 mg DAILY RENETTA Administration Ropinirole HCl 0.5 mg 07/09/24 21:00 07/09/24 21:00 Ropinirole Hcl 0.25 Mg Tab PO 0.5 mg HS RENETTA Administration Tamsulosin HCl 0.4 mg 07/09/24 21:00 07/09/24 21:00 Tamsulosin 0.4 Mg Cap.Er.24h PO 0.4 mg HS RENETTA Administration Objective - Vital Signs Vital signs: Vital Signs Temp 97.9 F 07/10/24 03:20 Pulse 72 07/10/24 12:34 Resp 18 07/10/24 12:34 BP 95/64 07/10/24 12:34 Pulse Ox 95 07/10/24 12:34 FiO2 Intake & Output 07/09/24 07/10/24 07/10/24 18:59 06:59 18:59 Intake Total 118 Output Total 400 1050 Balance -282 -1050 Weight 73.482 kg 74.6 kg Intake: Oral 118 Output: Urine 400 1050 Other: Voiding Method Urinal Urinal # Bowel Movements 1 - Exam GENERAL: The patient is alert and oriented x3, not in any acute distress. Well developed, well nourished. HEENT: Pupils are round and equally reacting to light. EOMI. No scleral icterus. No conjunctival pallor. Normocephalic, atraumatic. No pharyngeal erythema. No thyromegaly. CARDIOVASCULAR: S1 and S2 present. No murmurs, rubs, or gallops. PULMONARY: Chest is clear to auscultation, no wheezing , no crackles. ABDOMEN: Soft, nontender, nondistended, normoactive bowel sounds. No palpable organomegaly. MUSCULOSKELETAL: No joint swelling or deformity. EXTREMITIES: No cyanosis, clubbing, or pedal edema. NEUROLOGICAL: Gross neurological examination did not reveal any focal deficits. SKIN: No rashes. no petechiae. - Labs CBC & Chem 7: 07/10/24 07:53 07/10/24 07:53 Labs: Abnormal Lab Results - Last 24 Hours (Table) 07/10/24 07/10/24 Range/Units 07:53 07:53 RBC 3.55 L (4.30-5.90) m/uL Hgb 11.4 L (13.0-17.5) gm/dL Hct 36.5 L (39.0-53.0) % MCV 102.6 H (80.0-100.0) fL Lymphocytes # 0.5 L (1.0-4.8) k/uL Carbon Dioxide 32 H (22-30) mmol/L Calcium 7.9 L (8.4-10.2) mg/dL Assessment and Plan Assessment: Presyncope Acute on chronic CHF Elevated troponin A-fib with rate controlled COPD with no exacerbation hstory of esophageal cancer status post esophagectomy and Gastroesophageal anastomosis, about 15 years ago History of CVA with vision problem Hypertension Hyperlipidemia Diabetes mellitus History of osteoarthritis History of prostate cancer s/p surgical and radiation therapy in 2015 Plan: Continue with IV Lasix 20 mg twice daily Cardiology consult Continue with aspirin Monitor blood pressure Labs and medication were reviewed.. Continue same treatment. Continue with symptomatic treatment. Resume home medication. Monitor labs and vitals. DVT and GI prophylaxis. Further recommendations as per clinical course of the patient DVT prophylaxis: Subcutaneous heparin GI Prophylaxis: Pepcid PT/OT: Pending Prognosis is guarded
--- NOTE | 2024-07-10 14:50 | P.CRDCN ---
History of Present Illness Consult date: 07/09/24 History of present illness: HISTORY OF PRESENTING ILLNESS 79-year-old male with multiple medical problems presented to the ER because of concerns of feeling lightheaded and presyncope. He was doing physical therapy for his chronic lower back pain where he felt that he might pass out and he was not feeling well. This lasted for approximately an hour and a half. He denied having any active substernal chest pressure palpitation symptoms. He does report lower back pain. Does have prior history of paroxysmal atrial fibrillation, nonischemic cardiomyopathy with a EF of 30 to 35%, valvular heart disease with moderate MR, moderate , mild AI, moderate TR, hypertension and dyslipidemia On admission his ECG showed atrial fibrillation with heart rate in 90s with mild interventricular conduction delay, incomplete left bundle Chest x-ray showed mild pulmonary congestion, small bilateral pleural effusion, cardiomegaly. Labs showed hemoglobin 13.3, BUN 19, creatinine 0.9, TSH 4.4, LDL 42, NT-proBNP 5900, troponin elevated at 0.06 with a flat pattern. REVIEW OF SYSTEMS 14 point review of system is negative except what is mentioned above in HPI. PHYSICAL EXAMINATION Vital signs reviewed. Neck: Brisk carotid upstroke, Lungs: Diminished breath sound bilateral bases, no wheezing or rhonchi Heart: Irregularly irregular pulse, systolic murmur audible Abdomen: Soft nontender, positive bowel sounds. Extremities: No edema, intact distal pulses. Neuro: Alert, oritented, no focal deficits. Detailed neuro exam was not performed. ASSESSMENT Presyncope doing physical therapy Persistent atrial fibrillation, rate controlled at this time Incomplete left bundle branch block Cardiomyopathy suspected to be nonischemic with EF of 30 to 35% Moderate MR, moderate , mild AI Cardiac testing Last echo from May 2024 reported preserved LV systolic function. This was a limited echo PLAN Continue to monitor telemetry IV diuretics 20 mg IV twice daily Continue other cardiac medications Further recommendations to follow Davion Mohan MD, FACC, RPVI Thank you for allowing [facility] to participate in this patient's care. Feel free to reach out in case of any followup questions. 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 "ENLARGED HEART VALVES" PER PATIENT. HX OF PROSTATE CANCER WITH SURGERY, HX OF THROAT CANCER WITH SURGERY-CHEMO AND RADIATION (2015), LOW IRON. [place]. 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 Very poor vision lt eye and rt eye vision vision. History of Any Multi-Drug Resistant Organisms: None Reported Past Surgical History: Orthopedic Surgery, Prostate Surgery Additional Past Surgical History / Comment(s): RIGHT SHOULDER X2, EGD'S, COLONOSCOPIES, MICAH CATARACTS, PATIENT STATES ESOPHAGUS REMOVED AND STOMACH USED. PROSTATE SX FOR CANCER, COLONOSCOPY, EGD, back surgery Past Anesthesia/Blood Transfusion Reactions: No Reported Reaction Additional Past Anesthesia/Blood Transfusion Reaction / Comment(s): Pt has received blood products in the past. 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 Medications and Allergies Home Medications Medication Instructions Recorded Confirmed Type Omeprazole 20 mg PO AC-BRKFST 05/25/18 07/08/24 History Multivitamins, Thera [Multivitamin 1 tab PO PC-LUNCH 09/26/19 07/08/24 History (formulary)] Cholecalciferol [Vitamin D3 (25 25 mcg PO PC-LUNCH 10/04/21 07/08/24 History Mcg = 1000 Iu)] Cyanocobalamin (Vitamin B-12) 1,000 mcg PO PC-LUNCH 10/04/21 07/08/24 History [Vitamin B-12] rOPINIRole HCL [Requip] 0.5 mg PO HS 07/03/22 07/08/24 History Latanoprost/Pf [Latanoprost 0.005% 1 drop BOTH EYES HS 11/25/22 07/08/24 History Eye Drop] L.acidoph,Paracasei, B.lactis 1 cap PO PC-LUNCH 09/22/23 07/08/24 History [Probiotic] Atorvastatin [Lipitor] 40 mg PO HS 12/11/23 07/08/24 History EPINEPHrine (Auto Inject) [Epipen] 0.3 mg IM ONCE PRN 12/11/23 07/08/24 History Ferrous Sulfate [Iron (65 MG 325 mg PO PC-LUNCH 12/11/23 07/08/24 History Elemental)] Gabapentin 300 mg PO HS 30 Days #30 cap 12/16/23 07/08/24 Rx Fluticasone/Umeclidin/Vilanter 1 puff INHALATION RT-DAILY 01/28/24 07/08/24 History [Trelegy Ellipta 100-62.5-25] Tamsulosin [Flomax] 0.4 mg PO HS 01/28/24 07/08/24 History Lanolin/Mineral Oil [Eucerin 1 applic TOPICAL BID PRN 03/09/24 07/08/24 History Original Lotion] Aspirin 81 mg PO DAILY 06/06/24 07/08/24 History Metoprolol Succinate (ER) [Toprol 50 mg PO DAILY 30 Days #30 tab 06/10/24 07/08/24 Rx XL] Artificial Tears-Hypromellose 1 drop BOTH EYES HS 07/08/24 07/08/24 History [Artificial Tear Drops] Pioglitazone [Actos] 15 mg PO DAILY 07/08/24 07/08/24 History Allergies Allergy/AdvReac Type Severity Reaction Status Date / Time bee venom protein (honey bee) Allergy Severe Anaphylaxis Verified 07/08/24 15:53 latex Allergy Unknown Rash/Hives Verified 07/08/24 15:53 adhesive tape Allergy Unknown-Per Verified 07/08/24 15:53 Dr Dickens's office Cod/tilapia AdvReac Vomit Uncoded 07/08/24 15:53 Physical Exam Vitals: Vital Signs Temp Pulse Pulse Resp BP BP Pulse Ox 07/10/24 13:42 72 18 07/10/24 12:34 72 18 95/64 95 07/10/24 09:53 68 18 07/10/24 08:37 18 92 L 07/10/24 08:30 68 18 109/68 97 07/10/24 03:20 97.9 F 83 18 99/61 100 07/10/24 02:07 135/82 07/10/24 01:20 73 18 07/09/24 22:59 98.1 F 73 18 82/56 96 07/09/24 20:00 98.2 F 64 18 114/74 97 07/09/24 15:36 81 18 163/97 98 07/09/24 15:01 75 18 142/98 98 Intake and Output 07/09/24 07/10/24 07/10/24 22:59 06:59 14:59 Intake Total 118 Output Total 750 700 Balance -632 -700 Intake: Oral 118 Output: Urine 750 700 Other: Voiding Method Urinal Urinal Urinal # Bowel Movements 1 Weight 73.482 kg 74.6 kg Results 07/10/24 07:53 07/10/24 07:53 CBC 07/10/24 Range/Units 07:53 WBC 7.2 (3.8-10.6) k/uL RBC 3.55 L (4.30-5.90) m/uL Hgb 11.4 L (13.0-17.5) gm/dL Hct 36.5 L (39.0-53.0) % Plt Count 177 (150-450) k/uL Comprehensive Metabolic Panel 07/10/24 Range/Units 07:53 Sodium 137 (137-145) mmol/L Potassium 3.8 (3.5-5.1) mmol/L Chloride 103 (98-107) mmol/L Carbon Dioxide 32 H (22-30) mmol/L BUN 15 (9-20) mg/dL Creatinine 0.87 (0.66-1.25) mg/dL Glucose 97 (74-99) mg/dL Calcium 7.9 L (8.4-10.2) mg/dL Current Medications Generic Name Dose Route Start Last Admin Trade Name Freq PRN Reason Stop Dose Admin Artificial Tears 1 drops 07/09/24 21:00 07/09/24 22:21 Artificial Tears-Hypromellose Drops 15 Ml Btl BOTH EYES 1 drops HS RENETTA Administration Aspirin 325 mg 07/09/24 09:00 07/10/24 08:39 Aspirin 325 Mg Tab PO 325 mg DAILY RENETTA Administration Atorvastatin Calcium 40 mg 07/09/24 21:00 07/09/24 21:00 Atorvastatin 40 Mg Tab PO 40 mg HS RENETTA Administration Epinephrine HCl 0.3 mg 07/09/24 09:22 Epinephrine - Anaphylaxis Kit (1 Mg/Ml) IM 07/19/24 09:21 ONCE PRN Anaphylaxis Famotidine 20 mg 07/09/24 21:00 07/10/24 08:39 Famotidine 20 Mg/2 Ml Vial IV 20 mg Q12HR RENETTA Administration Ferrous Sulfate 325 mg 07/09/24 13:30 07/10/24 12:37 Ferrous Sulfate 325 Mg Tab PO 325 mg PC-LUNCH RENETTA Administration Furosemide 20 mg 07/09/24 09:30 07/10/24 08:39 Furosemide 10 Mg/Ml 2 Ml Vial IV 20 mg Q12HR RENETTA Administration Gabapentin 300 mg 07/09/24 21:00 07/09/24 21:00 Gabapentin 300 Mg Cap PO 300 mg HS RENETTA Administration Heparin Sodium (Porcine) 5,000 unit 07/09/24 21:00 07/10/24 08:39 Heparin Sodium,Porcine 5,000 Unit/Ml 1 Ml Vial SQ 5,000 unit Q12HR RENETTA Administration Latanoprost 1 drops 07/09/24 21:00 07/09/24 22:21 Latanoprost 0.005% Ophth Drops 2.5 Ml Btl BOTH EYES 1 drops HS RENETTA Administration Metoprolol Succinate 50 mg 07/09/24 10:15 07/10/24 08:39 Metoprolol Succinate (Er) 50 Mg Tab.Er.24h PO 50 mg DAILY RENETTA Administration Multivitamins 1 each 07/09/24 13:30 07/10/24 12:37 Multivitamins, Thera 1 Each Tab PO 1 each PC-LUNCH RENETTA Administration Nitroglycerin 0.4 mg 07/08/24 18:17 Nitroglycerin Sl Tabs 0.4 Mg Tab SUBLINGUAL Q5M PRN Chest Pain Nitroglycerin 1 inch 07/09/24 00:00 07/10/24 12:37 Nitroglycerin Oint 1 Inch/Gm Packet TOPICAL 1 inch Q6HR RENETTA Administration Pioglitazone HCl 15 mg 07/10/24 09:00 07/10/24 08:39 Pioglitazone 15 Mg Tab PO 15 mg DAILY RENETTA Administration Ropinirole HCl 0.5 mg 07/09/24 21:00 07/09/24 21:00 Ropinirole Hcl 0.25 Mg Tab PO 0.5 mg HS RENETTA Administration Tamsulosin HCl 0.4 mg 07/09/24 21:00 07/09/24 21:00 Tamsulosin 0.4 Mg Cap.Er.24h PO 0.4 mg HS RENETTA Administration Intake and Output 07/09/24 07/10/24 07/10/24 22:59 06:59 14:59 Intake Total 118 Output Total 750 700 Balance -632 -700 Intake: Oral 118 Output: Urine 750 700 Other: Voiding Method Urinal Urinal Urinal # Bowel Movements 1 Weight 73.482 kg 74.6 kg 07/10/24 07:53 07/10/24 07:53
--- NOTE | 2024-07-10 15:13 | P.PN ---
Subjective Progress Note Date: 07/10/24 HISTORY OF PRESENTING ILLNESS 79-year-old male with multiple medical problems presented to the ER because of concerns of feeling lightheaded and presyncope. He was doing physical therapy for his chronic lower back pain where he felt that he might pass out and he was not feeling well. This lasted for approximately an hour and a half. He denied having any active substernal chest pressure palpitation symptoms. He does report lower back pain. Does have prior history of paroxysmal atrial fibrillation, nonischemic cardiomyopathy with a EF of 30 to 35%, valvular heart disease with moderate MR, moderate , mild AI, moderate TR, hypertension and dyslipidemia On admission his ECG showed atrial fibrillation with heart rate in 90s with mild interventricular conduction delay, incomplete left bundle Chest x-ray showed mild pulmonary congestion, small bilateral pleural effusion, cardiomegaly. Labs showed hemoglobin 13.3, BUN 19, creatinine 0.9, TSH 4.4, LDL 42, NT-proBNP 5900, troponin elevated at 0.06 with a flat pattern. Progress note June 2024 Seen and examined at bedside this a.m. Feels slightly better. Good urine output. Renal function is staying stable. Optimize GDMT PHYSICAL EXAMINATION Vital signs reviewed. Neck: Brisk carotid upstroke, Lungs: Diminished breath sound bilateral bases, no wheezing or rhonchi Heart: Irregularly irregular pulse, systolic murmur audible Abdomen: Soft nontender, positive bowel sounds. Extremities: No edema, intact distal pulses. Neuro: Alert, oritented, no focal deficits. Detailed neuro exam was not performed. ASSESSMENT Mild HFpEF exacerbation Small left pleural effusion, acute on chronic Presyncope doing physical therapy Persistent Chronic atrial fibrillation, rate controlled at this time Incomplete left bundle branch block Cardiomyopathy suspected to be nonischemic from tachycardia with EF of 30 to 35%, recovered EF noticed in May 2024. History of pericardial effusion requiring pericardial window at [place] Moderate MR, moderate , mild AI Prior history of CVA with hemorrhagic transformation at [facility] 2023. Cardiac testing Last echo from May 2024 reported preserved LV systolic function. This was a limited echo Lexiscan from August 2023 did not show any reversible ischemia PLAN Increase diuretics to 40 mg IV twice daily Start Farxiga 10 mg daily, Aldactone 12.5 mg daily. Discontinue Actos. Do not resume it at home. Metoprolol succinate 50 mg daily. She is not on anticoagulation because of microcytic anemia and CVA with hemorrhagic transformation. Obtain limited echocardiogram to look for pericardial effusion Repeat two-view chest x-ray tomorrow He has been recommended Watchman device to be done on outpatient basis. His primary library services coordinator is Dr. Del Castillo Consider different oral hypoglycemic agents. Fluid restrictions of 35 to 40 ounces a day Objective - Vital Signs Vital signs: Vital Signs Temp 97.9 F 07/10/24 03:20 Pulse 72 07/10/24 13:42 Resp 18 07/10/24 13:42 BP 95/64 07/10/24 12:34 Pulse Ox 95 07/10/24 12:34 FiO2 Intake & Output 07/09/24 07/10/24 07/10/24 18:59 06:59 18:59 Intake Total 118 Output Total 400 1050 Balance -282 -1050 Weight 73.482 kg 74.6 kg Intake: Oral 118 Output: Urine 400 1050 Other: Voiding Method Urinal Urinal # Bowel Movements 1 - Labs CBC & Chem 7: 07/10/24 07:53 07/10/24 07:53 Labs: Abnormal Lab Results - Last 24 Hours (Table) 07/10/24 07/10/24 Range/Units 07:53 07:53 RBC 3.55 L (4.30-5.90) m/uL Hgb 11.4 L (13.0-17.5) gm/dL Hct 36.5 L (39.0-53.0) % MCV 102.6 H (80.0-100.0) fL Lymphocytes # 0.5 L (1.0-4.8) k/uL Carbon Dioxide 32 H (22-30) mmol/L Calcium 7.9 L (8.4-10.2) mg/dL
[2024-07-10] MEDS: DAPAGLIFLOZIN PROPANEDIOL 10 MG TABLET PO SCH (16:00)
[2024-07-10] MEDS: FUROSEMIDE 10 MG/ML 2 ML VIAL IV SCH (16:00)
[2024-07-10] MEDS: SPIRONOLACTONE 25 MG TAB PO SCH (16:01)
--- NOTE | 2024-07-11 07:35 | XR ---
EXAMINATION TYPE: XR chest 2V DATE OF EXAM: 07/11/2024 COMPARISON: 07/08/2024 CLINICAL INDICATION: Male, 79 years old with history of CHF; , TECHNIQUE: XR chest 2V views of the chest. FINDINGS: The heart is enlarged and there is bilateral consolidation with small effusion. Calcified granuloma r ight lower lobe postsurgical change right shoulder and vertebral column. No overt failure or pneumoth orax. The heart is enlarged. Suspect a hiatal hernia. IMPRESSION: 1. A bilateral infiltrate and small effusion stable. [facility], , 07/11/2024 7:33 AM
[2024-07-11 07:54] LABS: African American GFR (CKD) 86 (>60 ml/min/1.73 sqM); Anion Gap 4 mmol/L; Blood Urea Nitrogen 21 mg/dL (9-20); Calcium 8.4 mg/dL (8.4-10.2); Carbon Dioxide 33 mmol/L (22-30); Chloride 101 mmol/L (98-107); Glucose 94 mg/dL (74-99); Magnesium 1.6 mg/dL (1.6-2.3); Non-African American GFR(CKD) 74 (>60 ml/min/1.73 sqM); Potassium 3.8 mmol/L (3.5-5.1); Sodium 138 mmol/L (137-145)
[2024-07-11] MEDS: ASPIRIN 81 MG PO SCH (08:09)
[2024-07-11 08:22] LABS: Basophils % (A) 1 %; Eosinophils # (A) 0.1 k/uL (0-0.7); Eosinophils % (A) 2 %; HCT 40.3 % (39.0-53.0); HGB 12.7 gm/dL (13.0-17.5); Hypochromasia Slight; Lymphocytes # (A) 0.5 k/uL (1.0-4.8); Lymphocytes % (A) 7 %; MCH 32.4 pg (25.0-35.0); MCHC 31.7 g/dL (31.0-37.0); MCV 102.2 fL (80.0-100.0); Macrocytosis Slight; Mean Platelet Volume 7.7; Monocytes # (A) 0.6 k/uL (0-1.0); Monocytes % (A) 8 %; Neutrophils # (A) 6.1 k/uL (1.3-7.7); Neutrophils % (A) 81 %; Platelet Count 200 k/uL (150-450); RBC 3.94 m/uL (4.30-5.90); RDW 13.8 % (11.5-15.5); WBC 7.5 k/uL (3.8-10.6)
--- NOTE | 2024-07-11 11:04 | P.PN ---
Subjective This is a pleasant 79 years old male with past medical history of multiple medical problems as below Who presents yesterday because of presyncope, he was doing his therapy for his chronic low back pain where he felt he is going to pass out, he was not feeling well and lightheaded. It lasted about 1.5-hour No headache, no confusion, no weakness or numbness No change in urine or bowel habits. No fever or chills. No chest pain. No coughing or illicit drugs His chronic low back pain currently is 5/10 and is controlled pain Denies smoking alcohol or illicit drugs Patient vitals are stable and afebrile. He is mildly tachypneic He has unremarkable CBC, BMP, liver enzymes and troponin is elevated at 0.062, 0.060. 0.058 His EKG showing A-fib with a rate of 90 with interventricular conduction delay Chest x-ray showing mild cardiomegaly with bilateral pleural effusion and pulmonary vascular congestion 07/10 Patient awake and alert. Denies chest pain. No shortness of breath at rest Patient states he walked to the bathroom this morning without exertional dyspnea However I noticed when the patient talks he got short of breath after 1-2 sentences at bedside states that she has history of esophageal cancer about 1516 years ago, had it was treated with esophagectomy and anastomosis of the stomach to the esophagus and since then he has been having exertional shortness of breath but lately it was getting worse No other new complaint Patient feels generally weak Blood pressure slightly on the low normal side, will keep monitoring. Currently he is on IV Lasix 20 mg twice daily and metoprolol home dose of 50 mg daily at bedside which helped with history. All questions answered 07/11 Patient breathing is fine, he is not dyspneic or tachypneic at rest. He did not walk since yesterday. At baseline he uses a walker On exam he does not have much basal crepitation in the lungs or leg swelling. However repeat chest x-ray from today showing persistent bilateral infiltrate which looks stable compared to admission per radiologist. I reviewed the chest x-ray by myself and I think there is slight improvement Patient looks little bit more dehydrated which is something might help the patient given his fluid overload Heart rate is controlled. No wheezing or signs of COPD exacerbation Patient was complaining from some dysuria yesterday but no overt urinary symptoms today, we ordered urine analysis and bladder scan yesterday which are still pending Currently he is on aspirin 81 mg, Aldactone, Farxiga added. And he is on IV Lasix with bump up dose to 40 mg twice daily Review of systems CONSTITUTIONAL: No fever, no malaise, no fatigue. HEENT: No recent visual problems or hearing problems. Denied any sore throat. ctive bowel sounds. NEUROLOGICAL: No headaches, no weakness, no numbness. HEMATOLOGICAL: Denies any bleeding or petechiae. GENITOURINARY: Denies any burning micturition, frequency, or urgency. MUSCULOSKELETAL/RHEUMATOLOGICAL: Denies any joint pain, swelling, or any muscle pain. ENDOCRINE: Denies any polyuria or polydipsia. Active Medications Generic Name Dose Route Start Last Admin Trade Name Freq PRN Reason Stop Dose Admin Artificial Tears 1 drops 07/09/24 21:00 07/10/24 20:51 Artificial Tears-Hypromellose Drops 15 Ml Btl BOTH EYES 1 drops HS RENETTA Administration Aspirin 81 mg 07/11/24 09:00 07/11/24 08:09 Aspirin 81 Mg PO 81 mg DAILY RENETTA Administration Atorvastatin Calcium 40 mg 07/09/24 21:00 07/10/24 20:51 Atorvastatin 40 Mg Tab PO 40 mg HS RENETTA Administration Dapagliflozin 10 mg 07/10/24 15:00 07/11/24 08:09 Dapagliflozin Propanediol 10 Mg Tablet PO 10 mg DAILY RENETTA Administration Epinephrine HCl 0.3 mg 07/09/24 09:22 Epinephrine - Anaphylaxis Kit (1 Mg/Ml) IM 07/19/24 09:21 ONCE PRN Anaphylaxis Famotidine 20 mg 07/09/24 21:00 07/11/24 08:10 Famotidine 20 Mg/2 Ml Vial IV 20 mg Q12HR RENETTA Administration Ferrous Sulfate 325 mg 07/09/24 13:30 07/10/24 12:37 Ferrous Sulfate 325 Mg Tab PO 325 mg PC-LUNCH RENETTA Administration Furosemide 40 mg 07/10/24 15:15 07/11/24 08:09 Furosemide 10 Mg/Ml 2 Ml Vial IV 40 mg Q12HR RENETTA Administration Gabapentin 300 mg 07/09/24 21:00 07/10/24 20:51 Gabapentin 300 Mg Cap PO 300 mg HS RENETTA Administration Heparin Sodium (Porcine) 5,000 unit 07/09/24 21:00 07/11/24 08:09 Heparin Sodium,Porcine 5,000 Unit/Ml 1 Ml Vial SQ 5,000 unit Q12HR RENETTA Administration Latanoprost 1 drops 07/09/24 21:00 07/10/24 20:51 Latanoprost 0.005% Ophth Drops 2.5 Ml Btl BOTH EYES 1 drops HS RENETTA Administration Metoprolol Succinate 50 mg 07/09/24 10:15 07/11/24 08:09 Metoprolol Succinate (Er) 50 Mg Tab.Er.24h PO 50 mg DAILY RENETTA Administration Multivitamins 1 each 07/09/24 13:30 07/10/24 12:37 Multivitamins, Thera 1 Each Tab PO 1 each PC-LUNCH RENETTA Administration Nitroglycerin 0.4 mg 07/08/24 18:17 Nitroglycerin Sl Tabs 0.4 Mg Tab SUBLINGUAL Q5M PRN Chest Pain Ropinirole HCl 0.5 mg 07/09/24 21:00 07/10/24 20:51 Ropinirole Hcl 0.25 Mg Tab PO 0.5 mg HS RENETTA Administration Spironolactone 12.5 mg 07/10/24 15:15 07/11/24 08:09 Spironolactone 25 Mg Tab PO 12.5 mg DAILY RENETTA Administration Tamsulosin HCl 0.4 mg 07/09/24 21:00 07/10/24 20:51 Tamsulosin 0.4 Mg Cap.Er.24h PO 0.4 mg HS RENETTA Administration Objective - Vital Signs Vital signs: Vital Signs Temp 98.2 F 07/11/24 08:10 Pulse 68 07/11/24 08:10 Resp 17 07/11/24 08:10 BP 100/71 07/11/24 08:10 Pulse Ox 92 L 07/11/24 08:10 FiO2 Intake & Output 07/10/24 07/11/24 07/11/24 18:59 06:59 18:59 Intake Total 118 180 Output Total 950 950 400 Balance -832 -950 -220 Weight 68.4 kg Intake: Oral 118 180 Output: Urine 950 950 400 Other: Voiding Method Urinal Urinal Urinal # Bowel Movements 1 - Exam GENERAL: The patient is alert and oriented x3, not in any acute distress. Well developed, well nourished. HEENT: Pupils are round and equally reacting to light. EOMI. No scleral icterus. No conjunctival pallor. Normocephalic, atraumatic. No pharyngeal erythema. No thyromegaly. CARDIOVASCULAR: S1 and S2 present. No murmurs, rubs, or gallops. PULMONARY: Chest is clear to auscultation, no wheezing , no crackles. ABDOMEN: Soft, nontender, nondistended, normoactive bowel sounds. No palpable organomegaly. MUSCULOSKELETAL: No joint swelling or deformity. EXTREMITIES: No cyanosis, clubbing, or pedal edema. NEUROLOGICAL: Gross neurological examination did not reveal any focal deficits. SKIN: No rashes. no petechiae. - Labs CBC & Chem 7: 07/11/24 07:08 07/11/24 07:08 Labs: Abnormal Lab Results - Last 24 Hours (Table) 07/11/24 07/11/24 Range/Units 07:08 07:08 RBC 3.94 L (4.30-5.90) m/uL Hgb 12.7 L (13.0-17.5) gm/dL MCV 102.2 H (80.0-100.0) fL Lymphocytes # 0.5 L (1.0-4.8) k/uL Carbon Dioxide 33 H (22-30) mmol/L BUN 21 H (9-20) mg/dL Assessment and Plan Assessment: Presyncope Acute on chronic CHF Elevated troponin A-fib with rate controlled COPD with no exacerbation hstory of esophageal cancer status post esophagectomy and Gastroesophageal anastomosis, about 15 years ago History of CVA with vision problem Hypertension Hyperlipidemia Diabetes mellitus History of osteoarthritis History of prostate cancer s/p surgical and radiation therapy in 2016 Plan: Continue with IV Lasix 40 mg twice daily Cardiology consult Continue with aspirin and other cardiac medication Chest x-ray reviewed Check urine analysis and bladder scan Monitor blood pressure Labs and medication were reviewed.. Continue same treatment. Continue with symptomatic treatment. Resume home medication. Monitor labs and vitals. DVT and GI prophylaxis. Further recommendations as per clinical course of the patient DVT prophylaxis: Subcutaneous heparin GI Prophylaxis: Pepcid PT/OT: Pending Prognosis is guarded
--- NOTE | 2024-07-11 11:19 | CA ---
Transthoracic Echo Report Name: Evan Webb Age: 79 Gender: M : 1945 Exam Date: 07/11/2024 08:39 Exam Location: [place] [facility] Ht (in): 64 Wt (lb): 164 Ordering Physician: Davion Mohan MD ([email or web address]) Attending/Referring Phys: Inspector Timers Nika Matute, CECI Procedure CPT: Indications: pericardial effusion Cardiac Hx: limited study Technical Quality: Fair Contrast 1: Total Dose (mL): Contrast 2: Total Dose (mL): MEASUREMENTS (Male / Female) Normal Values DOPPLER AV Peak Velocity 332.3 cm/s AV Peak Gradient 44.2 mmHg AV Mean Velocity 230.2 cm/s AV Mean Gradient 24.6 mmHg AV Velocity Time Integral 65.6 cm AI Peak Velocity 322.2 cm/s AI Peak Gradient 41.5 mmHg AI Pressure Half Time 797.4 ms LVOT Peak Velocity 228.8 cm/s LVOT Peak Gradient 20.9 mmHg LVOT Velocity Time Integral 40.0 cm TR Peak Velocity 217.1 cm/s TR Peak Gradient 18.9 mmHg Right Ventricular Systolic Press 23.9 mmHg FINDINGS Left Ventricle Left ventricular ejection fraction is estimated at 55-60 %. Right Ventricle Right ventricular systolic pressure within normal limits. Right Atrium Right atrium not well visualized. Left Atrium Mitral Valve Mild to moderate mitral regurgitation. Aortic Valve Aortic valve sclerosis. Moderate aortic stenosis with a peak gradient of 44 mmHg and a mean gradient of 25 mmHg. Tricuspid Valve Structurally normal tricuspid valve. Mild tricuspid regurgitation. Pulmonic Valve Pulmonic valve not well visualized. Pericardium Bilateral pleural effusion.no pericardial effusion. Aorta CONCLUSIONS Limited echo. Normal left ventricular size and systolic function Pleural effusion with no evidence of pericardial effusion Moderate aortic stenosis Previewed by: Dr. Jaja Aviles MD (Electronically Signed) Final Date: 11 July 2024 11:18
--- NOTE | 2024-07-11 14:01 | P.PN ---
Subjective HISTORY OF PRESENT ILLNESS: This is a 79-year-old male who follows with a stem crusher out of town, Dr. Del Castillo. Patient is admitted to the hospital secondary to congestive heart failure and presyncope. Patient examined at the bedside. Patient currently denies chest pain or pressure. He denies shortness of breath. Patient remains on IV Lasix 40 mg every 12 hours. Echocardiogram revealed ejection fraction 55 to 60%, mild to moderate MR, moderate aortic stenosis with peak gradient of 44 mmHg and mean gradient of 25 mmHg, mild TR, and bilateral pleural effusions. PHYSICAL EXAM: VITAL SIGNS: Reviewed. GENERAL: Well-developed in no acute distress. NECK: Supple. No JVD or thyromegaly LUNGS: Respirations even and unlabored. Lungs essentially clear to auscultation bilaterally. HEART: Irregular rate and rhythm. S1 and S2 heard. Systolic murmur noted. EXTREMITIES: Normal range of motion. No clubbing or cyanosis. Peripheral pulses intact. No lower extremity edema ASSESSMENT: Acute heart failure with preserved EF, 55 to 60% Presyncope Persistent atrial fibrillation with controlled ventricular rate Valvular heart disease including mild to moderate MR, moderate , and mild TR Prior history of CVA with hemorrhagic transformation, [facility] 2023 History of pericardial effusion requiring pericardial window at [place] History of cardiomyopathy 30 to 35% with recovered EF, suspected to be nonischemic from tachycardia PLAN: Discontinue IV Lasix Begin oral Lasix 40 mg daily Continue additional cardiac medications Stable for discharge home today from a cardiac standpoint Recommend outpatient evaluation for Watchman device Patient to follow-up with his primary stem crusher at Dr. Del Castillo postdischarge Nurse practitioner note has been reviewed by physician. Signing provider agrees with the documented findings, assessment, and plan of care documented by MOBILE THERAPIST as a scribe. Objective - Vital Signs Vital signs: Vital Signs Temp 98.2 F 07/11/24 08:10 Pulse 68 07/11/24 08:10 Resp 17 07/11/24 08:10 BP 100/71 07/11/24 08:10 Pulse Ox 92 L 07/11/24 08:10 FiO2 Intake & Output 07/10/24 07/11/24 07/11/24 18:59 06:59 18:59 Intake Total 118 180 Output Total 916 371 1013 Balance -832 950 970 Weight 68.4 kg Intake: Oral 118 180 Output: Urine 339 998 2036 Other: Voiding Method Urinal Urinal Urinal # Bowel Movements 1 - Labs CBC & Chem 7: 07/11/24 07:08 07/11/24 07:08 Labs: Abnormal Lab Results - Last 24 Hours (Table) 07/11/24 07/11/24 Range/Units 07:08 07:08 RBC 3.94 L (4.30-5.90) m/uL Hgb 12.7 L (13.0-17.5) gm/dL MCV 102.2 H (80.0-100.0) fL Lymphocytes # 0.5 L (1.0-4.8) k/uL Carbon Dioxide 33 H (22-30) mmol/L BUN 21 H (9-20) mg/dL
[2024-07-12] MEDS: FUROSEMIDE 40 MG TAB PO SCH (08:40)
--- NOTE | 2024-07-12 10:52 | P.PN ---
Subjective HISTORY OF PRESENT ILLNESS: This is a 79-year-old male who follows with a hair designer out of town, Dr. Del Castillo. Patient is admitted to the hospital secondary to congestive heart failure and presyncope. Patient examined at the bedside. Patient currently denies chest pain or pressure. He denies shortness of breath. Patient remains on IV Lasix 40 mg every 12 hours. Echocardiogram revealed ejection fraction 55 to 60%, mild to moderate MR, moderate aortic stenosis with peak gradient of 44 mmHg and mean gradient of 25 mmHg, mild TR, and bilateral pleural effusions. 07/12/2024 Patient examined this morning. He is currently sitting up in the chair. Patient denies chest pain or pressure. He denies shortness of breath. He has been transition to oral diuretics. Vital signs are stable. PHYSICAL EXAM: VITAL SIGNS: Reviewed. GENERAL: Well-developed in no acute distress. NECK: Supple. No JVD or thyromegaly LUNGS: Respirations even and unlabored. Lungs essentially clear to auscultation bilaterally. HEART: Irregular rate and rhythm. S1 and S2 heard. Systolic murmur noted. EXTREMITIES: Normal range of motion. No clubbing or cyanosis. Peripheral pulses intact. No lower extremity edema ASSESSMENT: Acute heart failure with preserved EF, 55 to 60% Presyncope Persistent atrial fibrillation with controlled ventricular rate Valvular heart disease including mild to moderate MR, moderate , and mild TR Prior history of CVA with hemorrhagic transformation, [facility] 2023 History of pericardial effusion requiring pericardial window at [place] History of cardiomyopathy 30 to 35% with recovered EF, suspected to be nonis chemic from tachycardia PLAN: Continue current cardiac medications Stable for discharge home today from a cardiac standpoint Recommend outpatient evaluation for Watchman device Patient to follow-up with his primary hair designer at Dr. Del Castillo postdischarge We will sign off. Please reconsult if needed. Nurse practitioner note has been reviewed by physician. Signing provider agrees with the documented findings, assessment, and plan of care documented by FIELD OPERATIONS TECHNICIAN as a scribe. Objective - Vital Signs Vital signs: Vital Signs Temp 98 F 07/12/24 08:40 Pulse 69 07/12/24 08:40 Resp 18 07/12/24 08:40 BP 111/77 07/12/24 08:40 Pulse Ox 93 L 07/12/24 08:40 FiO2 Intake & Output 07/11/24 07/12/24 07/12/24 18:59 06:59 18:59 Intake Total 658 240 Output Total 1150 350 Balance -492 -350 240 Weight 67.8 kg Intake: Oral 658 240 Output: Urine 1150 350 Other: Voiding Method Urinal Urinal Urinal - Labs CBC & Chem 7: 07/11/24 07:08 07/11/24 07:08
--- NOTE | 2024-07-12 12:05 | CT ---
EXAMINATION TYPE: CT thor lumbar spine wo con CT DLP: 1233 mGycm, Automated exposure control for dose reduction was used. DATE OF EXAM: 07/12/2024 11:49 AM CLINICAL INDICATION:Male, 79 years old with history of back pain, hx of back surgery; Back pain, hist ory of back surgery COMPARISON: Thoracolumbar lumbar spine radiograph 12/13/2023, CT thoracolumbar spine 09/28/2023 TECHNIQUE: Axial images of the thoracic and lumbar spine were obtained without contrast. Coronal and sagittal reformats were performed. CT Contrast: Contrast used: none. FINDINGS: Diffuse bone demineralization. Post surgical changes of the thoracolumbar lumbar spine with bilateral pedicle screws and rods extending from T12 through L4 for fixation of L2 fracture. Vertebral cement changes identified at T12 and L4. There is again approximately 5 mm retropulsion of the posterior end plate. Hardware appears intact with appropriate alignment. DISH of the mid to lower thoracic spine. Moderate multilevel degenerative disc disease of the lower t horacic spine through the lumbar spine. Questionable developing superior endplate compression of the L3 vertebral body with approximately 1 mm of height loss centrally. New anterior wedge compression de formity of the L5 vertebral body involving the superior and anterior cortices. There is approximately 10% height loss. No retropulsion. No evidence of significant central canal stenosis of the thoracolu mbar spine. Mild to moderate bilateral neural foraminal stenosis at L5-S1 with bilateral facet arthro josh. Multilevel facet arthropathy. Moderate bilateral neural foraminal stenosis at L4-L5. No other significant neural foraminal stenosis. Additional multilevel degenerative disc changes of the cervica l spine. Partial visualization of right shoulder arthroplasty changes. Postsurgical changes from esophagectomy and gastric pull-through. Partial visualization of right posterior lower lung herniation to the ribs with atelectasis/scarring. There is an adjacent calcified granuloma. Moderate size left pleural effu sarkis with associated atelectasis of the left lower lobe and lingula. No pneumothorax. Mild atheroscle rotic calcification of the aorta and its branches. Cardiomegaly. Dense aortic valvular calcifications . Coronary artery calcifications. Small pericardial effusion. Mild diffuse anasarca. Foci of gas within the left anterior abdominal wall likely from medication inj ection. Moderate amount stool is present within the distal colon. Distal colonic diverticulosis witho ut evidence for acute diverticulitis. Calcified granulomas within the spleen. Nonobstructive left isacc al punctate calculus. IMPRESSION: 1. Extensive postsurgical changes of T12-L4 for L2 fracture fixation. Hardware appears intact with a ppropriate alignment. 2. New anterior wedge compression deformity L5 vertebral body with approximately 10% height loss and no retropulsion. 3. Questionable new central compression fracture of the L3 vertebral body with approximately 1 mm he ight loss centrally. No retropulsion. 4. Moderate multilevel degenerative disc disease of the lower thoracolumbar lumbar spine as describe d above. 5. Moderate-sized left pleural effusion. 6. 6. Postsurgical changes from esophagectomy with gastric pull-through. [facility], , 07/12/2024 12:03 PM
[2024-07-12] MEDS: ACETAMINOPHEN TAB 325 MG TAB PO PRN (13:01)
--- NOTE | 2024-07-12 14:22 | P.CNOR ---
History of Present Illness - [facility] Consult date: 07/12/24 Consult reason: low back pain History of present illness: Patient is a 79-year-old male who is known to our orthopedic practice who was admitted to [facility] on Thursday after a presyncopal episode that occurred after physical therapy. Patient has a very detailed medical history A- fib, history of recent CVA and CHF. He is known to our practice from a previous L1-L2 fracture through a Charcot spine in September 2023. Patient underwent a open reduction internal fixation of T12-L4, he has been followed in the outpatient setting and been doing rather well. Patient was admitted to [facility] for other medical issues, our team was then consulted. Patient was evaluated today at bedside, he is resting in his hospital chair. He appears to be in no acute distress. Patient states that he has been doing relatively well. He has had a couple instances over the last few weeks where he gets some posterior buttock pain that radiates down the left lower extremity. This pain does not stay consistent. He has noticed no loss of strength in the lower extremities. He has no continuous numbness or tingling to the bilateral lower extremities. He has been urinating and having bowel movements with no issues. He denies any genital her perineal numbness or tingling. Review of Systems Constitutional: Reports as per HPI Past Medical History Past Medical History: Atrial Fibrillation, Cancer, Heart Failure, COPD, CVA/TIA, Diabetes Mellitus, GERD/Reflux, Hyperlipidemia, Hypertension, Osteoarthritis (OA), Prostate Disorder Additional Past Medical History / Comment(s): COPD WITH SOB -( OPHTHALMIC ASST FOR 45 YEARS). "ENLARGED HEART VALVES" PER PATIENT. HX OF PROSTATE CANCER WITH SURGERY, HX OF THROAT CANCER WITH SURGERY-CHEMO AND RADIATION (2015), LOW IRON. EKUK. 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 Very poor vision lt eye and rt eye vision vision. History of Any Multi-Drug Resistant Organisms: None Reported Past Surgical History: Orthopedic Surgery, Prostate Surgery Additional Past Surgical History / Comment(s): RIGHT SHOULDER X2, EGD'S, COLONOSCOPIES, MICAH CATARACTS, PATIENT STATES ESOPHAGUS REMOVED AND STOMACH USED. PROSTATE SX FOR CANCER, COLONOSCOPY, EGD, back surgery Past Anesthesia/Blood Transfusion Reactions: No Reported Reaction Additional Past Anesthesia/Blood Transfusion Reaction / Comm: Pt has received blood products in the past. 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 Medications and Allergies Home Medications Medication Instructions Recorded Confirmed Type Omeprazole 20 mg PO AC-BRKFST 05/25/18 07/08/24 History Multivitamins, Thera [Multivitamin 1 tab PO PC-LUNCH 09/26/19 07/08/24 History (formulary)] Cholecalciferol [Vitamin D3 (25 25 mcg PO PC-LUNCH 10/04/21 07/08/24 History Mcg = 1000 Iu)] Cyanocobalamin (Vitamin B-12) 1,000 mcg PO PC-LUNCH 10/04/21 07/08/24 History [Vitamin B-12] rOPINIRole HCL [Requip] 0.5 mg PO HS 07/03/22 07/08/24 History Latanoprost/Pf [Latanoprost 0.005% 1 drop BOTH EYES HS 11/25/22 07/08/24 History Eye Drop] L.acidoph,Paracasei, B.lactis 1 cap PO PC-LUNCH 09/22/23 07/08/24 History [Probiotic] Atorvastatin [Lipitor] 40 mg PO HS 12/11/23 07/08/24 History EPINEPHrine (Auto Inject) [Epipen] 0.3 mg IM ONCE PRN 12/11/23 07/08/24 History Ferrous Sulfate [Iron (65 MG 325 mg PO PC-LUNCH 12/11/23 07/08/24 History Elemental)] Gabapentin 300 mg PO HS 30 Days #30 cap 12/16/23 07/08/24 Rx Fluticasone/Umeclidin/Vilanter 1 puff INHALATION RT-DAILY 01/28/24 07/08/24 History [Trelegy Ellipta 100-62.5-25] Tamsulosin [Flomax] 0.4 mg PO HS 01/28/24 07/08/24 History Lanolin/Mineral Oil [Eucerin 1 applic TOPICAL BID PRN 03/09/24 07/08/24 History Original Lotion] Aspirin 81 mg PO DAILY 06/06/24 07/08/24 History Metoprolol Succinate (ER) [Toprol 50 mg PO DAILY 30 Days #30 tab 06/10/24 07/08/24 Rx XL] Artificial Tears-Hypromellose 1 drop BOTH EYES HS 07/08/24 07/08/24 History [Artificial Tear Drops] Pioglitazone [Actos] 15 mg PO DAILY 07/08/24 07/08/24 History Dapagliflozin Propanediol [Farxiga] 10 mg PO DAILY #30 tab 07/12/24 Rx Furosemide [Lasix] 40 mg PO DAILY #30 tab 07/12/24 Rx Spironolactone [Aldactone] 12.5 mg PO DAILY #30 tab 07/12/24 Rx Allergies Allergy/AdvReac Type Severity Reaction Status Date / Time bee venom protein (honey bee) Allergy Severe Anaphylaxis Verified 07/08/24 15:53 latex Allergy Unknown Rash/Hives Verified 07/08/24 15:53 adhesive tape Allergy Unknown-Per Verified 07/08/24 15:53 Dr Dickens's office Cod/tilapia AdvReac Vomit Uncoded 07/08/24 15:53 Physical Examination Gen: AOx3, NAD VSS stable at this time Integument: Well-healed incision involving the lower thoracic and lumbar spine, there is no areas of erythema, open lesions or swelling Palpation: Patient demonstrates no significant tenderness to the midline area of his previous incision, he does have some mild tenderness with the lower lumbar and sacral left-sided paravertebral area ROM: Full range of motion in all major muscle groups of the bilateral upper and lower extremities, no focal deficits appreciated Sensory Exam: Senory exam to light touch is intact C5-T1 Senosry exam to light touch is intact L2-S1 Motor: 4/5 strength appreciated in the bilateral lower extremities with hip flexion, knee extension, knee flexion, plantarflexion, EHL, FHL 4-/5 strength appreciated with dorsiflexion of the left lower extremity, 4/5 str ength of dorsiflexion on the right lower extremity Reflexes: 2/4 in all UE and LE Negative clonus bilaterally Negative Babinski bilaterally Results - Labs Labs: H & H 07/08/24 07/10/24 07/11/24 Range/Units 16:58 07:53 07:08 Hgb 13.3 11.4 L 12.7 L (13.0-17.5) gm/dL Hct 41.8 36.5 L 40.3 (39.0-53.0) % Result Diagrams: 07/11/24 07:08 07/11/24 07:08 - Diagnostic results CT Scan - lumbar: report reviewed, image reviewed Assessment and Plan Assessment: Chronic low back pain Previous L1-L2 Charcot spine fracture, status post ORIF T12-L4 posterior lateral stabilization and fusion Adjacent segment disease thoracic/lumbar spine Multiple medical comorbidities Plan: Imaging: Thoracolumbar CT scan without contrast was ordered, was able to review both the report and images with my attending Dr. Lomeli. No acute changes to the thoracolumbar hardware at this time. Patient's adjacent segment disease has worsened in the T11-T12 along with L4-L5, L5-S1 region, with worsening loss of the disc height and osteophyte formation Plan: No emergent orthopedic surgical intervention is recommended at this time Patient is actually progressing fairly well given his medical history and current medical state. Recommend that patient continue with his physical therapy. We discussed avoiding certain activities, this to include heavy lifting, bending and twisting repetitively Patient continues to have good strength in the bilateral upper and lower extremities. Recommending he continue to use a walker/cane for ambulation Other medical specialty recommendations appreciated Orthopedically patient stable for discharge and follow-up in the outpatient setting in the next 2 to 3 weeks for evaluation and recheck Time with Patient: Less than 30
[2024-07-13 10:09] VITALS: RESP 16
[2024-07-13 12:16] VITALS: BP 109/72; PULSE 72; TEMP 98.2
--- NOTE | 2024-07-17 22:12 | P.PN ---
Subjective Progress Note Date: 07/12/24 This is a pleasant 79 years old male with past medical history of multiple medical problems as below Who presents yesterday because of presyncope, he was doing his therapy for his chronic low back pain where he felt he is going to pass out, he was not feeling well and lightheaded. It lasted about 1.5-hour No headache, no confusion, no weakness or numbness No change in urine or bowel habits. No fever or chills. No chest pain. No coughing or illicit drugs His chronic low back pain currently is 5/10 and is controlled pain Denies smoking alcohol or illicit drugs Patient vitals are stable and afebrile. He is mildly tachypneic He has unremarkable CBC, BMP, liver enzymes and troponin is elevated at 0.062, 0.060. 0.058 His EKG showing A-fib with a rate of 90 with interventricular conduction delay Chest x-ray showing mild cardiomegaly with bilateral pleural effusion and pulmonary vascular congestion 07/10 Patient awake and alert. Denies chest pain. No shortness of breath at rest Patient states he walked to the bathroom this morning without exertional dyspnea However I noticed when the patient talks he got short of breath after 1-2 sentences at bedside states that she has history of esophageal cancer about 1516 years ago, had it was treated with esophagectomy and anastomosis of the stomach to the esophagus and since then he has been having exertional shortness of breath but lately it was getting worse No other new complaint Patient feels generally weak Blood pressure slightly on the low normal side, will keep monitoring. Currently he is on IV Lasix 20 mg twice daily and metoprolol home dose of 50 mg daily at bedside which helped with history. All questions answered 07/11 Patient breathing is fine, he is not dyspneic or tachypneic at rest. He did not walk since yesterday. At baseline he uses a walker On exam he does not have much basal crepitation in the lungs or leg swelling. However repeat chest x-ray from today showing persistent bilateral infiltrate wh ich looks stable compared to admission per radiologist. I reviewed the chest x- ray by myself and I think there is slight improvement Patient looks little bit more dehydrated which is something might help the patient given his fluid overload Heart rate is controlled. No wheezing or signs of COPD exacerbation Patient was complaining from some dysuria yesterday but no overt urinary symptoms today, we ordered urine analysis and bladder scan yesterday which are still pending Currently he is on aspirin 81 mg, Aldactone, Farxiga added. And he is on IV Lasix with bump up dose to 40 mg twice daily 07/12/2024 Patient is currently sitting in the chair. Awake alert and oriented. No complaints of chest pain or shortness of breath. IV Lasix injected by mouth. Otherwise patient was seen by orthopedic surgery due to recent history of back surgery. CT of the thoracic lumbar spine without contrast was done. Showed extensive postsurgical changes T12-L4 for L2 fracture fixation. Hardware appears intact with appropriate alignment. New anterior wedge compression deformity L5 vertebral body with approximately 10% height loss and no retropulsion. Postsurgical changes from esophagectomy with gastric pull- through. No surgical intervention from orthopedic surgery. Patient is undergoing PT OT. Laboratory data reviewed. Review of systems CONSTITUTIONAL: No fever, no malaise, no fatigue. HEENT: No recent visual problems or hearing problems. Denied any sore throat. ctive bowel sounds. NEUROLOGICAL: No headaches, no weakness, no numbness. HEMATOLOGICAL: Denies any bleeding or petechiae. GENITOURINARY: Denies any burning micturition, frequency, or urgency. MUSCULOSKELETAL/RHEUMATOLOGICAL: Denies any joint pain, swelling, or any muscle pain. ENDOCRINE: Denies any polyuria or polydipsia. Current medications reviewed. Objective - Vital Signs Vital signs: Vital Signs Temp 98.1 F 07/13/24 08:25 Pulse 88 07/13/24 08:25 Resp 16 07/13/24 08:25 BP 106/72 07/13/24 08:25 Pulse Ox 96 07/13/24 08:25 FiO2 Intake & Output 07/12/24 07/13/24 07/13/24 18:59 06:59 18:59 Intake Total 898 236 Output Total 650 100 Balance 898 -650 136 Weight 67.7 kg Intake: Oral 898 236 Output: Urine 650 100 Other: Voiding Method Urinal Urinal Urinal # Voids 3 - Exam - Exam GENERAL: The patient is alert and oriented x3, not in any acute distress. Well developed, well nourished. HEENT: Pupils are round and equally reacting to light. EOMI. No scleral icterus. No conjunctival pallor. Normocephalic, atraumatic. No pharyngeal erythema. No thyromegaly. CARDIOVASCULAR: S1 and S2 present. No murmurs, rubs, or gallops. PULMONARY: Chest is clear to auscultation, no wheezing , no crackles. ABDOMEN: Soft, nontender, nondistended, normoactive bowel sounds. No palpable organomegaly. MUSCULOSKELETAL: No joint swelling or deformity. EXTREMITIES: No cyanosis, clubbing, or pedal edema. NEUROLOGICAL: Gross neurological examination did not reveal any focal deficits. SKIN: No rashes. no petechiae. - Labs CBC & Chem 7: 07/11/24 07:08 07/11/24 07:08 Assessment and Plan Assessment: Presyncope Acute on chronic CHF with preserved EF Elevated troponin possible type II [place] Persistent A-fib with rate controlled Valvular heart disease with mild to moderate MR, moderate AAS and mild TR. History of cardiomyopathy ejection fraction 30 to 30% with recovered EF. Suspected to be nonischemic. COPD with no exacerbation hstory of esophageal cancer status post esophagectomy and Gastroesophageal anastomosis, about 15 years ago History of CVA with vision problem. Hemorrhagic transformation, [facility] in 2023 Hypertension Hyperlipidemia Diabetes mellitus History of osteoarthritis History of prostate cancer s/p surgical and radiation therapy in 2015 Plan: Continued with IV Lasix 20 mg twice daily. Changed to p.o. Continue with aspirin. Continue other cardiac medications. No surgical intervention from orthopedic surgery. Labs and medication were reviewed.. Monitor labs and vitals. DVT and GI prophylaxis. Further recommendations as per clinical course of the patient DVT prophylaxis: Subcutaneous heparin GI Prophylaxis: Pepcid PT/OT: Consult and possible rehab versus home with [facility] Prognosis is guarded PT OT Time with Patient: Greater than 30
--- NOTE | 2024-07-17 22:15 | P.DS ---
Providers Date of admission: 07/10/24 23:12 Expected date of discharge: 07/13/24 Attending physician: Obed Ba Consults: 07/11/24 13:42 Consult Physician Routine Consulting Provider: Milo Lomeli Consult Reason/Comments: pt request , known to you Do you want consulting provider notified?: Yes Primary care physician: Lexi Merced [facility] Course: Discharge diagnosis Acute on chronic CHF with preserved EF Elevated troponin possible type II [place] Persistent A-fib with rate controlled. Outpatient follow-up for Watchman procedure as an outpatient. Currently not on anticoagulation due to patient history of hemorrhagic CVA. Valvular heart disease with mild to moderate MR, moderate AAS and mild TR. History of cardiomyopathy ejection fraction 30 to 30% with recovered EF. Suspected to be nonischemic. COPD with no exacerbation hstory of esophageal cancer status post esophagectomy and Gastroesophageal anastomosis, about 15 years ago History of CVA with vision problem. Hemorrhagic transformation, [facility] in 2023 Hypertension Hyperlipidemia Diabetes mellitus History of osteoarthritis History of prostate cancer s/p surgical and radiation therapy in 2015 Hospital course This is a pleasant 79 years old male with past medical history of multiple medical problems as below Who presents yesterday because of presyncope, he was doing his therapy for his chronic low back pain where he felt he is going to pass out, he was not feeling well and lightheaded. It lasted about 1.5-hour No headache, no confusion, no weakness or numbness No change in urine or bowel habits. No fever or chills. No chest pain. No coughing or illicit drugs His chronic low back pain currently is 5/10 and is controlled pain Denies smoking alcohol or illicit drugs Patient vitals are stable and afebrile. He is mildly tachypneic He has unremarkable CBC, BMP, liver enzymes and troponin is elevated at 0.062, 0.060. 0.058 His EKG showing A-fib with a rate of 90 with interventricular conduction delay Chest x-ray showing mild cardiomegaly with bilateral pleural effusion and pulmonary vascular congestion 07/10 Patient awake and alert. Denies chest pain. No shortness of breath at rest Patient states he walked to the bathroom this morning without exertional dyspnea However I noticed when the patient talks he got short of breath after 1-2 sentences at bedside states that she has history of esophageal cancer about 1516 years ago, had it was treated with esophagectomy and anastomosis of the stomach to the esophagus and since then he has been having exertional shortness of breath but lately it was getting worse No other new complaint Patient feels generally weak Blood pressure slightly on the low normal side, will keep monitoring. Currently he is on IV Lasix 20 mg twice daily and metoprolol home dose of 50 mg daily at bedside which helped with history. All questions answered 07/11 Patient breathing is fine, he is not dyspneic or tachypneic at rest. He did not walk since yesterday. At baseline he uses a walker On exam he does not have much basal crepitation in the lungs or leg swelling. However repeat chest x-ray from today showing persistent bilateral infiltrate which looks stable compared to admission per radiologist. I reviewed the chest x-ray by myself and I think there is slight improvement Patient looks little bit more dehydrated which is something might help the patient given his fluid overload Heart rate is controlled. No wheezing or signs of COPD exacerbation Patient was complaining from some dysuria yesterday but no overt urinary symptoms today, we ordered urine analysis and bladder scan yesterday which are still pending Currently he is on aspirin 81 mg, Aldactone, Farxiga added. And he is on IV Lasix with bump up dose to 40 mg twice daily 07/12/2024 Patient is currently sitting in the chair. Awake alert and oriented. No complaints of chest pain or shortness of breath. IV Lasix injected by mouth. Otherwise patient was seen by orthopedic surgery due to recent history of back surgery. CT of the thoracic lumbar spine without contrast was done. Showed extensive postsurgical changes T12-L4 for L2 fracture fixation. Hardware appears intact with appropriate alignment. New anterior wedge compression deformity L5 vertebral body with approximately 10% height loss and no retropulsion. Postsurgical changes from esophagectomy with gastric pull- through. No surgical intervention from orthopedic surgery. Patient is undergoing PT OT. Laboratory data reviewed. 07/13/2024 Patient is resting in the bed. Awake alert and oriented x 3. No complaints of chest pain or shortness of breath. No nausea vomiting abdominal pain or diarrhea. Patient is tolerating oral diet. Back pain is controlled. Patient will be discharged home and follow-up with home health care. Outpatient with cardiology for Watchman procedure and also orthopedic surgery. Discussed with his in detail. Patient is being discharged today. - Exam GENERAL: The patient is alert and oriented x3, not in any acute distress. Well developed, well nourished. HEENT: Pupils are round and equally reacting to light. EOMI. No scleral icterus. No conjunctival pallor. Normocephalic, atraumatic. No pharyngeal erythema. No thyromegaly. CARDIOVASCULAR: S1 and S2 present. No murmurs, rubs, or gallops. PULMONARY: Chest is clear to auscultation, no wheezing , no crackles. ABDOMEN: Soft, nontender, nondistended, normoactive bowel sounds. No palpable organomegaly. MUSCULOSKELETAL: No joint swelling or deformity. EXTREMITIES: No cyanosis, clubbing, or pedal edema. NEUROLOGICAL: Gross neurological examination did not reveal any focal deficits. SKIN: No rashes. no petechiae. Discharge vitals reviewed. Total time taken greater than 35 minutes including 18 minutes for counseling and coordination of care. Patient Condition at Discharge: Stable Plan - Discharge Summary Discharge Rx Participant: Yes New Discharge Prescriptions: New Furosemide [Lasix] 40 mg PO DAILY #30 tab Spironolactone [Aldactone] 12.5 mg PO DAILY #30 tab Dapagliflozin Propanediol [Farxiga] 10 mg PO DAILY #30 tab Continue Omeprazole 20 mg PO AC-BRKFST Multivitamins, Thera [Multivitamin (formulary)] 1 tab PO PC-LUNCH Cyanocobalamin (Vitamin B-12) [Vitamin B-12] 1,000 mcg PO PC-LUNCH EPINEPHrine (Auto Inject) [Epipen] 0.3 mg IM ONCE PRN PRN Reason: Anaphylaxis Ferrous Sulfate [Iron (65 MG Elemental)] 325 mg PO PC-LUNCH Lanolin/Mineral Oil [Eucerin Original Lotion] 1 applic TOPICAL BID PRN PRN Reason: Dry Skin Artificial Tears-Hypromellose [Artificial Tear Drops] 1 drop BOTH EYES HS Pioglitazone [Actos] 15 mg PO DAILY Cholecalciferol [Vitamin D3 (25 Mcg = 1000 Iu)] 25 mcg PO PC-LUNCH rOPINIRole HCL [Requip] 0.5 mg PO HS Latanoprost/Pf [Latanoprost 0.005% Eye Drop] 1 drop BOTH EYES HS L.acidoph,Paracasei, B.lactis [Probiotic] 1 cap PO PC-LUNCH Atorvastatin [Lipitor] 40 mg PO HS Gabapentin 300 mg PO HS 30 Days #30 cap Tamsulosin [Flomax] 0.4 mg PO HS Fluticasone/Umeclidin/Vilanter [Trelegy Ellipta 100-62.5-25] 1 puff INHALATION RT-DAILY Aspirin 81 mg PO DAILY Metoprolol Succinate (ER) [Toprol XL] 50 mg PO DAILY 30 Days #30 tab Discharge Medication List Omeprazole 20 mg PO AC-BRKFST 05/25/18 [History] Multivitamins, Thera [Multivitamin (formulary)] 1 tab PO PC-LUNCH 09/26/19 [History] Cholecalciferol [Vitamin D3 (25 Mcg = 1000 Iu)] 25 mcg PO PC-LUNCH 10/04/21 [History] Cyanocobalamin (Vitamin B-12) [Vitamin B-12] 1,000 mcg PO PC-LUNCH 10/04/21 [History] rOPINIRole HCL [Requip] 0.5 mg PO HS 07/03/22 [History] Latanoprost/Pf [Latanoprost 0.005% Eye Drop] 1 drop BOTH EYES HS 11/25/22 [History] L.acidoph,Paracasei, B.lactis [Probiotic] 1 cap PO PC-LUNCH 09/22/23 [History] Atorvastatin [Lipitor] 40 mg PO HS 12/11/23 [History] EPINEPHrine (Auto Inject) [Epipen] 0.3 mg IM ONCE PRN 12/11/23 [History] Ferrous Sulfate [Iron (65 MG Elemental)] 325 mg PO PC-LUNCH 12/11/23 [History] Gabapentin 300 mg PO HS 30 Days #30 cap 12/16/23 [Rx] Fluticasone/Umeclidin/Vilanter [Trelegy Ellipta 100-62.5-25] 1 puff INHALATION RT-DAILY 01/28/24 [History] Tamsulosin [Flomax] 0.4 mg PO HS 01/28/24 [History] Lanolin/Mineral Oil [Eucerin Original Lotion] 1 applic TOPICAL BID PRN 03/09/24 [History] Aspirin 81 mg PO DAILY 06/06/24 [History] Metoprolol Succinate (ER) [Toprol XL] 50 mg PO DAILY 30 Days #30 tab 06/10/24 [Rx] Artificial Tears-Hypromellose [Artificial Tear Drops] 1 drop BOTH EYES HS 07/08/24 [History] Pioglitazone [Actos] 15 mg PO DAILY 07/08/24 [History] Dapagliflozin Propanediol [Farxiga] 10 mg PO DAILY #30 tab 07/12/24 [Rx] Furosemide [Lasix] 40 mg PO DAILY #30 tab 07/12/24 [Rx] Spironolactone [Aldactone] 12.5 mg PO DAILY #30 tab 07/12/24 [Rx] Follow up Appointment(s)/Referral(s): Milo Lomeli DO [Doctor of Osteopathic Medicine] - 08/01/24 9:15 am (With nurse practitioner Nadja) Lexi Blackwood MD [Primary Care Provider] - 1-2 days (Office closed at time of discharge. Patient to schedule appointment, please ensure the office is aware this is an appointment following a hospital stay.) Patient Instructions/Handouts: A-fib (Atrial Fibrillation) (DC), Syncope (DC) Discharge Disposition: HOME WITH HOME HEALTH SERVICES
== END 2024-07-13 17:19 | disposition home health service (06) | DRG 291 ==
LOC: EC 15:47 → 3SCARD 18:17 → OBSVTOIN 07-10 23:12
PROVIDERS: ADMIT Hospitalist; ATTEND Hospitalist
DX: I11.0 Hypertensive heart disease with heart failure (principal); I50.33 Acute on chronic diastolic (congestive) heart failure; I48.19 Other persistent atrial fibrillation; I42.8 Other cardiomyopathies; J44.9 Chronic obstructive pulmonary disease, unspecified; I08.0 Rheumatic disorders of both mitral and aortic valves; E78.5 Hyperlipidemia, unspecified; E86.0 Dehydration; H54.7 Unspecified visual loss; H91.90 Unspecified hearing loss, unspecified ear; E11.9 Type 2 diabetes mellitus without complications; G89.29 Other chronic pain; I44.7 Left bundle-branch block, unspecified; I69.398 Other sequelae of cerebral infarction; Z79.82 Long term (current) use of aspirin; Z79.84 Long term (current) use of oral hypoglycemic drugs; Z79.899 Other long term (current) drug therapy; Z85.01 Personal history of malignant neoplasm of esophagus; Z85.46 Personal history of malignant neoplasm of prostate; Z85.819 Personal history of malignant neoplasm of unspecified site of lip, oral cavity, and pharynx
CPT/HCPCS: 36415; 71046; 72128; 72131; 80048; 80053; 80061; 83735; 83880; 84145; 84443; 84484; 85025; 93005; 93308; 96361; 96374; 96375; 99285